=== PATIENT | female | born 1945 | race Caucasian/White ===

== ENCOUNTER → 2025-02-10 | Outpatient (CLI) | payer MEDICARE, SELFPAY ==
--- NOTE | 2025-02-10 12:56 | VDLE_ITS ---
Reason For Study Reason For Study: BLE Pain RIGHT LEFT CFV is compressible, spontaneous, phasic, competent CFV is compressible, spontaneous, phasic, competent, and demonstrates normal augmentation. and demonstrates normal augmentation. FV is compressible, spontaneous, phasic, competent FV is compressible, phasic, and INCOMPETENT for and demonstrates normal augmentation. greater than 1.0 second. POP V is compressible, spontaneous, phasic, competent POP V is compressible, spontaneous, phasic, competent and demonstrates normal augmentation. and demonstrates normal augmentation. T/P Trunk is compressible. T/P Trunk is compressible. PTV is compressible. PTV is compressible. RT PerV is compressible. LT PerV is compressible. SFJ is competent and measures 0.63 cm. SFJ is competent and measures 0.45 cm. Unable to Visualize Rt GSV prox thigh to mid calf. Pt GSV proximal thigh measures 0.32 x 0.34 cm. Reports HX of ablation. GSV at knee measures 0.29 x 0.33 cm. SSV mid calf is competent and measures 0.25 x 0.27 GSV is competent throughout. cm. SSV mid calf is competent and measures 0.34 x 0.35 Procedure cm. Exam performed in department. This is a venous duplex using B-mode, color flow and spectral Doppler. The exam was diagnostic. Patient was scanned in reverse Trendelenburg position during reflux assessment. VL/Venous Duplex US - Yin Extrem Interpretation Summary Deep veins of the lower extremities are bilaterally patent and compressible seg mentally. There is no evidence of deep vein thrombosis on either side. Valvular competence appears intact within the p roximal deep venous system on the right . On the left, the femoral vein is incompetent. Sapheno-femoral junctions are yin aterally competent . The right great saphenous vein appears to be absent from the proximal thigh to the mid-calf. Th e left great saphenous vein is patent and competent segmentally. Small saphenous veins are patent and competent bilateral ly. Ordering Physician: Tanvir Webster Referring Physician: Kyler Lynne Performed By: Porfirio Harris, RVT
--- NOTE | 2025-02-10 12:56 | ART_ITS ---
Reason For Study Reason For Study: PVD Procedure A bilateral lower extremity continuous wave Doppler with analog waveform analysis,segmental pressures,and ankle brachial indexes without exercise. Left Segmental Pressures Left brachial= 118mmHg. Left calf = 131mmHg. Left posterior tibial artery = 56mmHg. Left dorsalis pedis artery = 85mmHg. Left digit = 27 mmHg. The left posterior tibial artery waveforms are monophasic. The left dorsalis pedis waveforms are monophasic. Right Segmental Pressures Right brachial= 124mmHg. Right low thigh = 165mmHg. Right calf = 86mmHg. Right posterior tibial artery = 92mmHg. Right dorsalis pedis artery = 102mmHg. Right digit = 40 mmHg. The right posterior tibial artery waveforms are monophasic. The right dorsalis pedis waveforms are monophasic. Indices The right ankle brachial index by the posterior tibial artery is 0.74. The right ankle brachial index by the dorsalis pedis is 0.82. The right digital-brachial index is 0.32. The left ankle brachial index by the posterior tibial artery is 0.45. The left ankle brachial index by the dorsalis pedis is 0.69. The left digital-brachial index is 0.22. VL/Lower Ext Art Exam w/o Exercis Interpretation Summary Monophasic Doppler waveforms are noted at ankle level bilaterally. Pulse-volume recordings appear satisfactory bilaterally. Resting ankle-brachial indices are moderately diminished bilateral ly. Digital-brachial indices are severely diminished bilaterally. 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 There is evidence of severe arterial occlusive dsease at digital level bilaterally. Ordering Physician: Tanvir Webster Referring Physician: Kyler Lynne Performed By: Porfirio Harris RVT
--- OUTSIDE RECORDS SUMMARY | 2025-02-10 22:33 | XMS RPT_ITS | CCD ---
Author Organization [facility] ion Partnership [facility] Care Team Providers Care Chef Instructor Name Role Phone Tourlas, Andrew Unavailable Unavailable Unavailable Unavailable Stadnick, Aissatou S Unavailable Unavailable Stadnick, Aissatou S Unavailable Unavailable Stadnick, Aissatou S Unavailable Unavailable Stadnick, Aissatou S Unavailable Unavailable Tourlas, Andrew Primary Care Provider Oscar Pittsstantinos Primary Care Provider Tourlas, Andrew Unavailable Unavailabl e Tourlas, Andrew Unavailable Unavailabl e Emmanuel Ricketts Unavailable Unavailab le Tourlas, Andrew Unavailable Unavailabl e Mallapareddi, Emmanuel Nag S Unavailable Unavail able Tourlas, Andrew Unavailable Unavailabl e MallapaEmmanuel choi Primary Care Provider Emmanuel iRcketts S Unavailable Unavailable Unavailable Liliam SOSA, Emmanuel Primary Care Provider Tr Drummond MD Unavailable Unavailable Andrew Pitts MD Unavailable Unavail able Tourlas, Andrew Unavailable Unavailabl e Liliam SOSA, Emmanuel Primary Care Provider Liliam SOSA, Emmanuel Obrienhosh Primary Care Provider ALYSSA ARENAS Attending Unavailable ALYSSA ARENAS Referring Unavailable EMMANUEL RICKETTS Primary Care Unavailable Unavailable Unavailable Andrew Pitts MD Primary Care Provider Liliam SOSA, Emmanuel Primary Care Provider [phone] Nic Hernández MD Primary Care Provider [phone] Gisselle SOSA, Andrew Primary Care Provider Liliam SOSA MPH, Emmanuel Betancourt Primary Care Pro vider Liliam SOSA MPH, Emmanuel Betancourt Unavailable Mallankur, Dr. Emmanuel Iverson Referring Unavailable Mallapareddi, Dr. Emmanuel Iverson Attending Unavailable Mallapareddi, Dr. Emmanuel Iverson Primary Care Unavailable Mallapareddi, Dr. Emmanuel Iverson Referring Unavailable Mallapareddi, Dr. Emmanuel Iverson Attending Unavailable Mallapareddi, Dr. Emmanuel Iverson Primary Care Unavailable Mallapareddi, Dr. Emmanuel Iverson Referring Unavailable Mallapareddi, Dr. Emmanuel Iverson Attending Unavailable Mallapareddi, Dr. Emmanuel Iverson Primary Care Unavailable Mallapareddi, Dr. Emmanuel Iverson Referring Unavailable Mallapareddi, Dr. Emmanuel Iverson Attending Unavailable Mallapareddi, Dr. Emmanuel Iverson Primary Care Unavailable Mallapareddi, Emmanuel Iverson Primary Care Pro vider ROLANDO HANNA Attending Unavailable CONSULTANTS, [facility] Consulting Unavailable MALLAPAREDDI MALLAPAREDDI, A RUN EMMANUEL IVERSON~[id number] Primary Care Unavailable ROLANDO HANNA Admitting Unavailable ROLANDO HANNA Referring Unavailable MALLAPAREDDI MALLAPAREDDI, A RUN EMMANUEL IVERSON~[id number] Primary Care Unavailable Mallapareddi, Dr. Emmanuel Iverson Attending Unavailable Mallapareddi, Dr. Emmanuel Iverson Primary Care Unavailable Mallapareddi, Dr. Emmanuel Iverson Referring Unavailable Mallapareddi, Dr. Emmanuel Iverson Attending Unavailable Mallapareddi, Dr. Emmanuel Iverson Primary Care Unavailable Mallapareddi, Dr. Emmanuel Iverson Referring Unavailable Mallapareddi, Dr. [facility] Primary Care Unavailable JOAQUIN MENG Attending Unavailable MD RADHAMES MORRISON Referring Unavailable MD RADHAMES MORRISON Admitting Unavailable RADHAMES MORRISON Admitting Unavailable RADHAMES MORRISON Referring Unavailable MALLAPAREDDI, EMMANUEL [facility] Primary Care Unavail able JOAQUIN MENG Consulting Unavailable KATI MEZA Attending Unavailable STENTZ KYLER Referring Unavailable MALLAPAREDKARI, EMMANUEL [facility] Primary Care Unavail able Stentz MELC, Kyler Primary Care Provider AVERY DAS Admitting Unavailab AVERY Moser Attending Unavailab AVERY Moser Referring Unavailab le MALLAPAREDDI, EMMANUEL Primary Care Unavailable ROLANDO HANNA Attending Unavailable ROLANDO HANNA Referring Unavailable MALLAPAREDDI, [facility] Primary Care Unavailable ROLANDO HANNA Attending Unavailable ROLANDO HANNA Referring Unavailable MALLAPAREDDI, [facility] Primary Care Unavailable MALLAPAREDDI, [facility] Primary Care Unavailable EMERGENCY, TRIAGE PROTOCOL Admitting Unava ilable EMERGENCY, TRIAGE PROTOCOL Referring Unava ilable MALLAPAREDDI, [facility] Primary Care Unavailable ARLEY, MARI CORADO Consulting Unavailable NAYELY MAE Admitting NAYELY Richardson Attending Nic Simmons MD Unavailable Stentz MELC, Annona Primary Care Provider STENTZ, BOXBOROUGH Primary Care Unavailable MALLAPAREDKARI, [facility] Primary Care Unavail able oRlando Hanna DO Unavailable Unavailable Rolando Hanna DO Unavailable Unavailable AVERY DAS Referring Unavailab AVERY Moser Admitting Unavailab le MALLAPAREDDI, [facility] Primary Care Unavailable AVERY DAS Attending Unavailab le MALLAPAREDDI, [facility] Primary Care Unavailable MOJGAN LARSEN.KENNEDY Referring Unavailable MOJGAN JR., KENNEDY Admitting Unavailable MALLAPAREDDI, EMMANUEL Primary Care Unavailable MOJGAN LARSEN., KENNEDY Attending Unavailable MALLAPAREDDI, EMMANUEL Primary Care Unavailable MOJGAN JR., KENNEDY Attending Unavailable STENTZ, BOXBOROUGH Primary Care Unavailable MOJGAN JR., KENNEDY Attending Unavailable STENTZ, KYLER Primary Care Unavailable KENNEDY ULRICH JR. Attending Unavailable STENTZ, KYLER Primary Care Unavailable AVERY DAS Attending Unavailab le STENTZ, KYLER Primary Care Unavailable AVERY DAS Attending Unavailab le MALLAPAREDDI, EMMANUEL Primary Care Unavailable AVERY DAS Referring Unavailab le THIAGO, AVERY COSBY Admitting Unavailab le MALLAPAREDDI, EMMANUEL Primary Care Unavailable AVERY DAS Attending Unavailab le MALLAPAREDDI, EMMANUEL Primary Care Unavailable AVERY DAS Referring Unavailab le THIAGOAVERY BARON Admitting Unavailab le MALLAPAREDDI, EMMANUEL Primary Care Unavailable AVERY DAS Attending Unavailab le MALLAPAREDDI, EMMANUEL Primary Care Unavailable MALLAPAREDDI, EMMANUEL NAG S Attending Unavail able MALLAPAREDDI, EMMANUEL NAG S Primary Care Unavail able STENTZ, KYLER Attending Unavailable STENTZ, KYLER Primary Care Unavailable Tourlas, Pieter Primary Care Unavailable Tanvir Webster Referring Unavailable Tanvir Webster Attending Unavailable Allergies Allergy Classification Reported Allergen(s) Allergy Type Date of Onset Reaction(s) Facility nickel (2 sources) nickel Drug Allergy 3 Hives, Rash [facility] Opioid Agonists (15 sources) Codeine; Translations: [Codeine] Drug Allergy 6 Other (See Comments) [facility] (20 sources) codeine; Translations: [Codeine] Propensity to adverse reactions to drug 7 Abdominal pain, Other (See Comments), Abdominal Discomfort, Dyspepsia, Other [facility] Work Phone: (20 sources) nickel; Translations: [NICKEL] Drug Allergy 3 Skin Problems, Hives, Rash [facility] Medications Current Medications Medication Drug Class(es) Dates Sig (Normalized) Sig (Original) acetaminophen 500 mg / diphenhydrAMINE hydrochloride 25 mg oral tablet (20 sources) Histamine-1 Receptor Antagonist take 2 tablets by mouth once daily diphenhydrAMINE- acetaminophen (TYLENOL PM) 25-500 mg Tab Take 2 (two) tablets by mouth nightly . Active acetaminophen 325 mg / HYDROcodone bitartrate 5 mg oral tablet (20 sources) Opioid Agonist Start: 01-23-2024 End: 01-30-2024 take 1 tablet by mouth every eight hours as needed for pain HYDROcodone-acet aminophen (NORCO) 5-325 mg per tablet Indications: Humerus head fracture, left, with routine healing, subsequent encounter Take 1 (one) tablet by mouth every 8 (eight) hours as needed for pain . 21 tablet 01/23/2024 01/30/2024 Active Start: 11-29-2023 End: 05-03-2024 HYDROcodone-acetaminophen (N ORCO) 5-325 mg per tablet Indications: Humerus head fracture, left, with routine healing, subsequent encounter Take 1 (one) tablet by mouth every 6 (six) hours as needed for pain (Days supply per fill: 7) . 28 tablet 0 01/03/2024 01/10/2024 Active Start: 11-26-2023 End: 11-29-2023 take 1-2 tablets by mouth every four hours as needed 1-2 tablet, Oral, Every 4 hours PRN, moderate to severe pain, Starting on Fri11/26/23 at 1437, For patient reported pain 4/10 or less, give 1 tablet; 5 and above/10, give 2 tablets Start: 04-03-2023 End: 04-03-2023 HYDROcodone-acetaminophen (N ORCO) 5-325 mg per tablet 1 tablet Start: 09-06-2022 End: 09-09-2022 HYDROcodone-acetaminophen (N ORCO) 5-325 mg per tablet Indications: Acquired hammertoe of left foot Take 1 (one) tablet by mouth every 4 (four) hours as needed for pain (Days supply per fill: 3) . 18 tablet 0 09/06/2022 09/09/2022 Active Start: 05-05-2019 take 1 tablet by mike once daily as needed HYDROcodone-Acetaminophen 5-325 MG Oral Tablet Take 1 tablet as needed per day Quantity: 10 Refills: 0 Ordered: 18-Jun-2021 Liliam SOSA, MPH, Emmanuel Dobbins Start : 05-May-2019 Active Start: 03-21-2016 End: 09-06-2022 HYDROcodone-acetaminophen (N ORCO) 5-325 mg per tablet as needed for pain . 0 03/21/2016 03/05/2021 Discontinued (Discontinued by another clinician) End: 04-05-2023 take 1 tablet by mouth three times daily HYDROcodone-acetaminophen (Robbins) 5-325 mg per tablet Take 1 tablet by mouth 3 (three) times a day if needed (pain). 0 04/05/2023 Discontinued (Stop Taking at Discharge) take 1 tablet by mike th twice daily as needed for pain HYDROcodone-Acetaminophen 5-325 MG Oral Tablet TAKE 1 TABLET Twice daily PRN severe pain. Don't take with tramadol or lorazepam. Don't drink alcohol or drink while on med. Quantity: 10 Refills: 0 Ordered: 20-Feb-2021 Liliam SOSA, MPH, Emmanuel [facility] Active Duration: 30 days apixaban 5 mg oral tablet (11 sources) Factor Xa Inhibitor Start: 05-28-2023 End: 01-30-2024 take 1 tablet by mouth twice daily apixaban (Eliquis) 5 mg tablet Indications: Acute deep vein thrombosis (DVT) of popliteal vein of right lower extremity (Multi) Take 1 tablet (5 mg) by mouth 2 times a day. 60 tablet 2 07/25/2023 01/30/2024 Discontinued (Therapy completed) Start: 04-23-2023 End: 04-21-2023 take 1 tablet by mouth every twelve hours apixaban (Eliquis) tablet 5 mg Start: 04-23-2023 End: 04-21-2023 take 1 tablet by mouth every twelve hours apixaban (Eliquis) tablet 5 mg Start: 04-19-2023 End: 04-21-2023 take 1 tablet by mouth every twelve hours apixaban (Eliquis) tablet 10 mg Start: 04-18-2023 End: 04-23-2023 take 10 mg by mouth every twelve hours Eliquis DVT-PE Treat 30D Start 5 mg (74 tabs) tablets,dose pack Take 10 mg by mouth every 12 hours. 0 04/18/2023 04/23/2023 Start: 04-18-2023 End: 04-23-2023 take 10 mg by mouth every twelve hours Eliquis DVT-PE Treat 30D Start 5 mg (74 tabs) tablets,dose pack Take 10 mg by mouth every 12 hours. 0 04/18/2023 04/23/2023 Active atenolol 25 mg oral tablet (20 sources) beta-Adrenergic Hosea Start: 03-07-2021 End: 08-09-2024 take 1 tablet by mouth once daily atenolol 25 mg tablet TAKE 1 TABLET BY MOUTH ONCE DAILY - Active Start: 11-15-2016 End: 03-05-2021 take 1 tablet by mouth once daily atenolol (TENORMIN) 25 MG tablet Take 1 (one) tablet (25 mg total) by mouth daily. 90 tablet 3 11/25/2017 03/05/2021 Discontinued (Discontinued by another clinician) azithromycin 250 mg oral tablet (2 sources) Macrolide Antimicrobial Start: 04-20-2022 azithromycin 250 mg tablet TAKE DIRECTED ON PACKAGE - Active betamethasone 0.5 mg/ml / clotrimazole 10 mg/ml topical cream (2 sources) Azole Antifungal, Corticosteroid Start: 09-15-2024 End: 09-29-2024 clotrimazole-beta methasone (LOTRISONE) cream Apply topically 2 (two) times a day Apply to bottom or left foot for 14 days . 30 g 01 09/15/2024 09/29/2024 Active celecoxib 200 mg oral capsule (3 sources) Nonsteroidal Anti-inflammatory Drug Start: 05-04-2024 End: 10-31-2024 take 1 capsule by mouth twice daily celecoxib (CELEBREX) 200 MG capsule Take 1 (one) capsule (200 mg total) by mouth 2 (two) times a day . 05/04/2024 10/31/2024 Active cephalexin 500 mg oral capsule (1 source) Cephalosporin Antibacterial Start: 09-06-2022 End: 09-09-2022 take 1 capsule by mouth four times daily cephALEXin (KEFLEX) 500 MG capsule Take 1 (one) capsule (500 mg total) by mouth 4 (four) times a day for 3 days . 12 capsule 0 09/06/2022 09/09/2022 Active docusate sodium 50 mg / sennosides, nursing home 8.6 mg oral tablet (10 sources) Start: 01-05-2024 End: 04-04-2024 take 1 tablet by mouth twice daily sennosides-docusa te sodium (Tess-Colace) 8.6-50 mg tablet Indications: Opioid use Take 1 tablet by mouth 2 times a day. 180 tablet 01/05/2024 04/04/2024 Active Start: 11-29-2023 End: 12-29-2023 take 1 tablet by mouth twice daily senna-docusate (SENNA-S) 8.6-50 mg Take 1 (one) tablet by mouth 2 (two) times a day . 60 tablet 0 11/29/2023 12/29/2023 Active Start: 11-25-2023 End: 11-29-2023 senna-docusate (SENNA-S) 8.6 -50 mg per tablet 1 tablet fluorouracil 50 mg/ml topical cream (2 sources) Nucleoside Metabolic Inhibitor Start: 03-01-2022 fluorouracil 5 % topical cream - Active gabapentin 300 mg oral capsule (20 sources) Anti-epileptic Agent Start: 04-15-2024 take 1 capsule by mouth every twelve hours gabapentin (Neurontin) 300 mg capsule Indications: Insomnia, unspecified type Take 1 capsule (300 mg) by mouth every 12 hours. 60 capsule 1 04/15/2024 Active Start: 01-02-2024 take 1 capsule by mo uth every twelve hours gabapentin (Neurontin) 300 mg capsule Indications: Insomnia, unspecified type Take 1 capsule (300 mg) by mouth every 12 hours. 60 capsule 01/02/2024 Active Start: 11-25-2023 End: 11-29-2023 take 1 capsule by mouth every twelve hours 300 mg, Oral, Every 12 hours, First dose on Fri11/25/23 at 1800, Capsule may be opened and contents placed down tube, flush tube with 10ml saline Start: 09-23-2023 take 1 capsule by mo uth every twelve hours gabapentin (NEURONTIN) 300 MG capsule Take 1 (one) capsule (300 mg total) by mouth every 12 (twelve) hours . 09/23/2023 Active Start: 06-17-2023 take 1 capsule by mo uth every twelve hours gabapentin (Neurontin) 300 mg capsule Indications: Insomnia, unspecified type Take 1 capsule (300 mg) by mouth every 12 hours. 60 capsule 0 06/17/2023 Active Start: 04-29-2023 take 1 capsule by mo uth three times daily Neurontin 100 mg capsule take 1 capsule by oral route 3 times every day 100 MG - Active M54.12/M54.16 Start: 04-16-2023 End: 06-19-2023 take 1 capsule by mouth once daily gabapentin (Neurontin) 100 mg capsule Indications: Insomnia, unspecified type Take 1 capsule (100 mg) by mouth once daily. 30 capsule 0 04/29/2023 06/19/2023 Discontinued (Med List Cleanup) Start: 04-07-2023 End: 04-29-2023 gabapentin (Neurontin) capsu le 300 mg Comment on above: M54.12/M54.16 hydroCHLOROthiazide 50 mg / triamterene 75 mg oral tablet (20 sources) Potassium-sparing Diuretic, Thiazide Diuretic Start: 12-07-2023 triamterene-hydro chlorothiazide (MAXZIDE) 75-50 mg per tablet 12/07/2023 Active Start: 04-05-2023 End: 04-05-2023 take 1 capsule by mouth once daily 1 capsule, oral, Daily, First dose on 04/05/23 at 0900 Stop day 2. Hold for systolic blood pressure less than 110 Start: 10-05-2015 End: 05-03-2025 take 1 tablet by mouth once daily triamterene 75 mg-hydrochlorothiazide 50 mg tablet TAKE 1 TABLET BY MOUTH ONCE DAILY - Active triamterene-hydr ochlorothiazide 75-50 MG tablet Take by mouth At bedtime. 0 Active hydrocortisone 25 mg/ml topical cream (5 sources) Corticosteroid Start: 04-29-2022 hydrocortisone 2.5 % topical cream - Active Start: 04-29-2022 End: 04-21-2023 hydrocortisone 2.5 % cream A PPLY MIXED 50/50 WITH VASELINE TO LIPS TWICE DAILY FOR UP TO 2 WEEKS. THEN DISCONTINUE FOR ONE WEEK BEFORE RESUMING NEEDED 0 04/29/2022 04/21/2023 Discontinued (Stop Taking at Discharge) losartan potassium 50 mg oral tablet (20 sources) Angiotensin 2 Receptor Hosea Start: 05-03-2024 End: 05-03-2025 take 1 tablet by mouth once daily at bedtime losartan (Cozaar) 50 mg tablet Indications: Benign essential HTN Take 1 tablet (50 mg) by mouth once daily at bedtime. 90 tablet 3 05/03/2024 05/03/2025 Active Start: 11-28-2023 End: 05-03-2024 take 1 tablet by mouth once daily losartan (COZAAR) 25 MG tablet Take 1 (one) tablet (25 mg total) by mouth nightly . 30 tablet 11/29/2023 Active meloxicam 7.5 mg oral tablet (20 sources) Nonsteroidal Anti-inflammatory Drug Start: 02-08-2022 End: 05-03-2025 meloxicam (MOBIC) 7.5 MG tablet Take 1 (one) tablet to 2 (two) tablets (7.5-15 mg total) by mouth daily . 09/21/2022 Active Start: 12-12-2020 End: 07-30-2022 take 1 tablet by mouth once daily meloxicam 15 mg tablet TAKE 1 (ONE) TABLET (15 MG TOTAL) BY MOUTH DAILY . - Active Start: 12-12-2020 Meloxicam 15 M G Oral Tablet Quantity: 30 Refills: 0 Ordered: 12-Dec-2020 DO Start : 12-Dec-2020 Active methylPREDNISolone (6 sources) Corticosteroid Start: 10-29-2023 End: 11-04-2023 methylPREDNISolone (MEDROL DOSEPACK) 4 mg tablet Follow package directions . 21 tablet 0 10/29/2023 11/04/2023 Active Start: 04-09-2023 Medrol (Tono) 4 mg tablets in a dose pack take by oral route as directed per package instructions 0.00 - Active Start: 03-05-2021 End: 03-12-2021 methylPREDNISolone (MEDROL D OSEPACK) 4 mg tablet follow package directions . 21 tablet 0 03/05/2021 03/12/2021 Active naloxone hydrochloride 40 mg/ml nasal spray (20 sources) Opioid Antagonist Start: 11-29-2023 naloxone (NA RCAN) 4 mg/actuation [place] Administer 1 spray into one nostril for known or suspected opioid overdose. If patient worsens or does not respond, may repeat in 2-3 minutes. . 2 each 0 11/29/2023 Active Start: 04-03-2023 End: 04-05-2023 naloxone (NARCAN) injection 0.4 mg Start: 10-23-2022 End: 10-23-2023 naloxone (Narcan) 4 mg/0.1 m L nasal spray Indications: Other chronic pain Administer 1 spray (4 mg) into affected nostril(s) if needed for opioid reversal. May repeat every 2-3 minutes if needed, alternating nostrils, until medical assistance becomes available. 2 each 0 10/23/2022 10/23/2023 Active Start: 03-01-2020 Narcan 4 MG/0. 1ML Nasal Liquid 1 spray in 1 nostril as needed for opioid overdose symptoms. May repeat dose in 2-3 min, alternate nostril Quantity: 1 Refills: 0 Ordered: 20-Feb-2021 Liliam SOSA, MPH, Emmanuel Dobbins Start : 01-Mar-2020 Active naloxone (NARCAN) 4 mg/actuation [place] (12 sources) Start: 11-29-2023 naloxone (NARCAN) 4 mg/actuation [place] Administer 1 spray into one nostril for known or suspected opioid overdose. If patient worsens or does not respond, may repeat in 2-3 minutes. . 2 each 11/29/2023 Active pantoprazole 20 mg delayed release oral tablet (20 sources) Proton Pump Inhibitor Start: 11-26-2023 End: 05-01-2024 take 1 tablet by mouth once daily pantoprazole (PROTONIX) 20 MG tablet Take 1 (one) tablet (20 mg total) by mouth daily Start: 11/30/23. 30 tablet 11/30/2023 Active prednisoLONE acetate 10 mg/ml ophthalmic suspension (2 sources) Corticosteroid Start: 02-04-2022 take 1 drop(s) into the eye(s) in the morning prednisolone acetate 1 % eye drops,suspension INSTILL 1 DROP INTO EACH EYE IN THE MORNING DIRECTED - Active propylene glycol 6 mg/ml ophthalmic solution (1 source) Propylene Glycol 0.6 % Solution Three times a day. 0 Active levothyroxine sodium 0.112 mg oral tablet (20 sources) l-Thyroxine Start: 04-04-2023 End: 04-05-2023 100 mcg, oral, Every morning before breakfast, First dose on Fri04/04/23 at 0700 ORAL ROUTE: take on an empty stomach and separate from other medications. ENTERAL TUBE ROUTE: If newly initiated enteral nutrition duration is over 5 days, hold enteral nutrition 1 hour before and after drug administration, per ASPEN guidelines. Start: 06-27-2022 levothyroxine 100 mcg tablet - Active Start: 12-04-2021 End: 04-21-2023 take 1 tablet by mouth once daily levothyroxine 100 MCG tablet Take 100 mcg by mouth daily. 0 12/04/2021 Active Start: 12-05-2020 Levothyroxine Sodium 112 MCG Oral Tablet Quantity: 90 Refills: 0 Ordered: 05-Dec-2020 DO Start : 05-Dec-2020 Active Start: 10-05-2015 End: 11-29-2023 take 1 tablet by mouth once daily levothyroxine (SYNTHROID, LEVOTHROID) 112 MCG tablet Take 1 (one) tablet (112 mcg total) by mouth once daily . 10/05/2015 Active tiZANidine 2 mg oral capsule (20 sources) Central alpha-2 Adrenergic Agonist Start: 05-14-2023 take 1 capsule by mouth every eight hours as needed Zanaflex 2 mg capsule take 1 capsule by oral route every 8 hours as needed - Active Start: 06-26-2016 End: 01-30-2024 tizanidine 2 mg tablet - Active traMADol hydrochloride 50 mg oral tablet (20 sources) Opioid Agonist Start: 07-26-2022 End: 04-02-2024 traMADol (ULTRAM) 50 mg tablet Indications: S/P hardware removal , Humerus head fracture, left, with routine healing, subsequent encounter Take 1 (one) tablet (50 mg total) by mouth every 8 (eight) hours as needed for pain (Days supply per fill: 7) . 21 tablet 03/26/2024 04/02/2024 Active Start: 07-26-2022 End: 02-09-2024 take 1 tablet by mouth every six hours as needed for pain traMADol (ULTRAM) 50 mg tablet Indications: Humerus head fracture, left, with routine healing, subsequent encounter Take 1 (one) tablet (50 mg total) by mouth every 6 (six) hours as needed for pain . 28 tablet 02/02/2024 02/09/2024 Active Start: 06-26-2016 End: 11-29-2023 traMADol (ULTRAM) 50 mg tabl et Take 1 (one) tablet (50 mg total) by mouth as needed for pain . 0 06/26/2016 11/29/2023 Discontinued (Stop Taking at Discharge) Start: 06-26-2016 take 1 tablet by mike th once daily in the morning traMADol HCl - 50 MG Oral Tablet Take 1 tablet in the morning and night; 2 tablets afternoon per day as needed. Quantity: 120 Refills: 0 Ordered: 23-Jan-2022 Liliam SOSA, MPH, Emmanuel Dobbins Start : 13-Nov-2020 Active traZODone hydrochloride 50 mg oral tablet (20 sources) Serotonin Reuptake Inhibitor Start: 02-19-2016 End: 10-12-2024 take 1 tablet by mouth once daily traZODone (DESYREL) 50 MG tablet Take 1 (one) tablet (50 mg total) by mouth nightly . 02/19/2016 Active urea 400 mg/ml topical lotion (2 sources) Start: 04-02-2024 End: 07-01-2024 urea 40 % Lotn Apply 1 Application topically 2 (two) times a day . 226.8 g 04/02/2024 07/01/2024 Active Completed/Discontinued Medications Medication Drug Class(es) Dates Sig (Normalized) Sig (Original) acetaminophen 325 mg oral tablet (20 sources) Start: 11-25-2023 End: 11-29-2023 take 1 tablet by mouth every four hours as needed for pain and headache acetaminophen (TYLENOL) tablet 650 mg Start: 04-19-2023 End: 04-21-2023 take 1 tablet by mouth every four hours as needed acetaminophen (Tylenol) tablet 650 mg Start: 04-03-2023 End: 04-05-2023 acetaminophen (TYLENOL) tabl et 1,000 mg Start: 04-03-2023 End: 04-05-2023 take 1 tablet by mouth every six hours as needed acetaminophen (TYLENOL) tablet 325 mg acetaminophen (T YLENOL ER) 650 MG CR tablet Take 2 (two) tablets (1,300 mg total) by mouth At NOON . Active take 1 tablet by mike th every six hours as needed acetaminophen (Tylenol) 500 mg tablet Take 1 tablet (500 mg) by mouth every 6 hours if needed. Active End: 04-05-2023 take 1 tablet by mouth every eight hours acetaminophen (Tylenol Arthritis Pain) 650 mg 8 hr tablet Take 1 tablet (650 mg total) by mouth every 8 (eight) hours if needed (pain). Do not crush, chew, or split. 0 04/05/2023 Discontinued (Stop Taking at Discharge) acetaminophen 325 mg / oxyCODONE hydrochloride 5 mg oral tablet (4 sources) Opioid Agonist Start: 11-27-2023 End: 11-27-2023 oxyCODONE-acetaminophen (PERCOCET) 5-325 mg per tablet Indications: Closed nondisplaced fracture of surgical neck of left humerus, unspecified fracture morphology, initial encounter Take 1 (one) tablet by mouth every 6 (six) hours as needed for pain (Days supply per fill: 3) . 12 tablet 0 11/27/2023 11/27/2023 Discontinued Start: 04-02-2023 take 1-2 tablets by mouth every four to six hours as needed for pain Percocet 5 mg-325 mg tablet take 1-2 tablet by oral route every 4-6 hours as needed for pain. Limit 6qd - Active M54.5, M54.2 Comment on above: M54.5, M54.2 alendronic acid 35 mg oral tablet (2 sources) Bisphosphonate Start: Alendronate Sodium 35 MG Oral Tablet TAKE 1 TABLET WEEKLY ON AN EMPTY STOMACH 30-60 MINUTES BEFORE BREAKFAST WITH 8-12 OUNCES OF WATER. DO NOT LIE DOWN AFTER TAKING PILL. Quantity: 12 Refills: 0 Ordered: 10-Jan-2021 Liliam SOSA, MPH, Emmanuel Dobbins Start : 10-Jan-2021 Active aluminum hydroxide 40 mg/ml / magnesium hydroxide 40 mg/ml / simethicone 4 mg/ml oral suspension (1 source) Start: 023 End: 023 aluminum-magnesium hydroxide-simethico ne (MAALOX) 200-200-20 mg/5 mL suspension 30 mL aspirin 325 mg delayed release oral tablet (1 source) Platelet Aggregation Inhibitor, Nonsteroidal Anti-inflammatory Drug Start: End: take 325 mg by mouth twice daily 325 mg, Oral, 2 times daily, First dose on Fri11/26/23 at 1700, DO NOT CRUSH OR CHEW. bethanechol chloride 25 mg oral tablet (1 source) Cholinergic Muscarinic Agonist Start: 023 End: 09-16-2 023 bethanechol (URECHOLINE) tablet 25 mg bisacodyl 10 mg rectal suppository (1 source) Stimulant Laxative Start: End: bisacodyL (DULCOLAX) suppository 10 mg calcium chloride 0.0014 meq/ml / potassium chloride 0.004 meq/ml / sodium chloride 0.103 meq/ml / sodium lactate 0.028 meq/ml injectable solution (3 sources) Start: End: take 100 mL intravenously every hour 100 mL/hr, Intravenous, Continuous, Starting on Fri11/26/23 at 1415, PACU (only) Start: 04-03-2023 End: 04-03-2023 take 100 mL intravenously every hour 100 mL/hr, intravenous, Continuous, Starting on Kaley 04/03/23 at 1545 Start: 04-03-2023 End: 04-03-2023 lactated Ringer's infusion ceFAZolin 2000 mg injection (2 sources) Cephalosporin Antibacterial Start: 11-26-2023 End: 11-27-2023 take 2000 mg intravenously every eight hours 2,000 mg, Intravenous, at 100 mL/hr, Every 8 hours, First dose on Fri11/26/23 at 1400, For 3 doses, Starting in pacu, Indication (POST PROCEDURE): Ortho Start: 11-26-2023 End: 11-26-2023 ceFAZolin (ANCEF) IVPB 2 g ( premix) ceFAZolin (ANCEF) 2 gram/20 mL IV syringe 2 g (1 source) Start: 04-03-2023 End: 04-05-2023 2 g, intravenous, Administer over 3 Minutes, Every 8 hours, First dose on Kaley 04/03/23 at 1700, For 6 doses, Recovery & On Unit Indication: Prophylaxis-Surgical cholecalciferol 0.01 mg oral tablet (1 source) Vitamin D Start: 11-27-2023 End: 11-29-2023 cholecalciferol (vitamin D3) tablet 800 Units cloNIDine hydrochloride 0.1 mg oral tablet (1 source) Central alpha-2 Adrenergic Agonist Start: 04-03-2023 End: 04-05-2023 cloNIDine (CATAPRES) tablet 0.1 mg cyclobenzaprine hydrochloride 10 mg oral tablet (5 sources) Muscle Relaxant Start: 11-26-2023 End: 11-29-2023 take 10 mg by mouth three times daily as needed for muscle spasms 10 mg, Oral, 3 times daily PRN, muscle spasms, Starting on Fri11/26/23 at 1437 Start: 04-08-2023 End: 06-19-2023 take 1 tablet by mouth every two hours for muscle spasms cyclobenzaprine (Flexeril) 5 mg tablet Take 1 tablet (5 mg) by mouth every 2 hours if needed for muscle spasms. 0 04/08/2023 06/19/2023 Discontinued (Med List Cleanup) Start: 04-03-2023 End: 04-05-2023 cyclobenzaprine (FLEXERIL) t ablet 5 mg docusate sodium 100 mg oral capsule (4 sources) Start: 04-15-2023 End: 06-19-2023 take 2 capsules by mouth twice daily docusate sodium (Colace) 100 mg capsule Take 2 capsules (200 mg) by mouth 2 times a day. 0 04/15/2023 06/19/2023 Discontinued (Med List Cleanup) Start: 04-03-2023 End: 04-05-2023 docusate sodium (COLACE) cap jose d 100 mg DULoxetine 20 mg delayed release oral capsule (5 sources) Serotonin and Norepinephrine Reuptake Inhibitor Start: 10-23-2022 End: 10-23-2023 take 1 capsule by mouth once daily DULoxetine (Cymbalta) [address] capsule Indications: Other chronic pain Take 1 capsule (20 mg) by mouth once daily. Do not crush or chew. 30 capsule 10/23/2022 06/19/2023 Discontinued (Side effects) EPINEPHrine 0.01 mg/ml / lidocaine hydrochloride 20 mg/ml injectable solution (2 sources) Antiarrhythmic, alpha-Adrenergic Agonist, beta-Adrenergic Agonist, Catecholamine, Amide Local Anesthetic Start: 09-06-2022 End: 09-06-2022 lidocaine-EPINEPH rine (XYLOCAINE W/EPI) 2 %-1:100,000 injection 1 mL Start: 09-06-2022 End: 09-06-2022 lidocaine-EPINEPHrine (XYLOC JONATHAN W/EPI) 2 %-1:100,000 injection 1 mL famotidine 20 mg oral tablet (3 sources) Histamine-2 Receptor Antagonist Start: 04-16-2023 End: 06-19-2023 take 1 tablet by mouth every twenty-four hours famotidine (Pepcid) 20 mg tablet Take 1 tablet (20 mg) by mouth once every 24 hours. 0 04/16/2023 06/19/2023 Discontinued (Med List Cleanup) 1 ml fentaNYL 0.05 mg/ml injection (1 source) Opioid Agonist Start: 04-03-2023 End: 04-03-2023 fentaNYL (SUBLIMAZE) injection 50 mcg fentaNYL (SUBLIMAZE) inj syringe 25 mcg (1 source) Start: 11-26-2023 End: 11-26-2023 25 mcg, Intravenous, Every 5 min PRN, Pain, Starting on Fri11/26/23 at 1325, For 4 doses, PACU (only), [] Do not give more than 100 mcg while in PACU. 0.5 ml HYDROmorphone hydrochloride 1 mg/ml prefilled syringe (6 sources) Opioid Agonist Start: 11-26-2023 End: 11-26-2023 0.25 mg, Intravenous, Every 5 min PRN, Pain, Starting on Fri11/26/23 at 1325, For 6 doses, PACU (only), Give if fentanyl not effective or not ordered. Do not give more than 1.5 mg total. Start: 11-25-2023 End: 11-25-2023 HYDROmorphone (PF) (DILAUDID ) injection Start: 04-03-2023 End: 04-05-2023 HYDROmorphone (DILAUDID) inj ection 0.5 mg Start: 04-03-2023 End: 04-03-2023 HYDROmorphone (DILAUDID) 0.5 mg/0.5 mL injection - ADS Override Pull ibuprofen 200 mg oral tablet (12 sources) Nonsteroidal Anti-inflammatory Drug End: 03-05-2021 take 2 tablets by mouth once daily ibuprofen (ADVIL,MOTRIN) 200 MG tablet Take 400 mg by mouth daily. 0 03/05/2021 Discontinued (Discontinued by another clinician) 1 ml ketorolac tromethamine 15 mg/ml injection (1 source) Nonsteroidal Anti-inflammatory Drug, Cyclooxygenase Inhibitor Start: 11-26-2023 End: 11-28-2023 take 15 mg intravenously every six hours as needed for pain 15 mg, Intravenous, Every 6 hours PRN, mild pain, Starting on Fri11/26/23 at 1437, For 48 hours lidocaine 0.04 mg/mg medicated patch (3 sources) Antiarrhythmic, Amide Local Anesthetic Start: 11-25-2023 End: 11-26-2023 lidocaine patch 1 patch Start: 09-06-2022 End: 09-06-2022 lidocaine 20 mg/mL (2 %) inj ection 3 mL LORazepam 0.5 mg oral tablet (20 sources) Benzodiazepine Start: 12-06-2015 End: 11-29-2023 LORazepam (ATIVAN) 0.5 MG tablet Take 1 (one) tablet (0.5 mg total) by mouth as needed . 0 12/06/2015 11/29/2023 Discontinued (Stop Taking at Discharge) End: 06-19-2023 take 1 tablet by mouth every eight hours as needed LORazepam (Ativan) 0.5 mg tablet Take 1 tablet (0.5 mg) by mouth every 8 hours if needed for anxiety. 0 06/19/2023 Discontinued (Med List Cleanup) magnesium chloride 0.40396 meq/ml / potassium chloride 0.24235 meq/ml / sodium acetate 0.027 meq/ml / sodium chloride 0.0899 meq/ml / sodium gluconate 5.02 mg/ml injectable solution (2 sources) Start: 11-27-2023 End: 11-28-2023 electrolyte-A (PLASMALYTE-A) solution 500 mL magnesium hydroxide 240 mg/m l oral suspension (6 sources) Start: 04-19-2023 End: 04-21-2023 magnesium hydroxide (Milk of Magnesia) 2,400 mg/10 mL suspension 10 mL Start: 04-05-2023 End: 06-19-2023 take 30 mL by mouth every twenty-four hours as needed magnesium hydroxide (Milk Of Magnesia Concentrated) 2,400 mg/10 mL suspension suspension Take 30 mL by mouth once daily as needed for constipation. 0 04/05/2023 06/19/2023 Discontinued (Therapy completed) Start: 04-03-2023 End: 04-05-2023 magnesium hydroxide (MILK OF MAGNESIA) 400 mg/5 mL suspension 30 mL magnesium oxide 400 mg oral tablet (2 sources) Start: 04-19-2023 End: 04-21-2023 magnesium oxide (Mag-Ox) tablet 400 mg methylPREDNISolone 4 MG Oral Tablet Therapy Pack (2 sources) Start: 03-05-2021 methylPREDNISo lone 4 MG Oral Tablet Therapy Pack Quantity: 21 Refills: 0 Ordered: 05-Mar-2021 DO Start : 05-Mar-2021 Active 5 ml midazolam 1 mg/ml injection (1 source) Benzodiazepine Start: 04-03-2023 End: 04-03-2023 midazolam (VERSED) injection 1 mg Start: 04-03-2023 End: 04-03-2023 midazolam (VERSED) injection 1 mg 1 ml morphine sulfate 2 mg/ml prefilled syringe (4 sources) Opioid Agonist Start: 04-19-2023 End: 04-19-2023 morphine 2 mg/mL injection - Omnicell Override Pull Start: 04-19-2023 End: 04-21-2023 take 2 mg intravenously every four hours as needed morphine injection 2 mg mupirocin 0.02 mg/mg topical ointment (1 source) RNA Synthetase Inhibitor Antibacterial Start: 04-03-2023 End: 04-03-2023 mupirocin (BACTROBAN) 2 % ointment 1 ml nalbuphine hydrochloride 10 mg/ml injection (1 source) Opioid Agonist/Antagonist Start: 04-03-2023 End: 04-05-2023 nalbuphine (NUBAIN) 10 mg/mL injection 2.5 mg naloxone (NARCAN) injection 0.1 mg (1 source) Start: 11-25-2023 End: 11-29-2023 naloxone (NARCAN) injection 0.1 mg naproxen sodium 220 mg oral tablet (12 sources) Nonsteroidal Anti-inflammatory Drug End: 03-05-2021 take 2 tablets by mouth once daily naproxen sodium (ALEVE) 220 MG tablet Take 440 mg by mouth daily. 0 03/05/2021 Discontinued (Discontinued by another clinician) 2 ml ondansetron 2 mg/ml injection (5 sources) Serotonin-3 Receptor Antagonist Start: 11-26-2023 End: 11-26-2023 take 4 mg intravenously every twenty-four hours as needed for nausea and vomiting 4 mg, Intravenous, Once as needed, nausea, vomiting, Starting on Fri11/26/23 at 1325, For 1 dose, PACU (only), Administer first as needed for nausea/vomiting, or as directed by anesthesia Start: 11-25-2023 End: 11-25-2023 ondansetron (ZOFRAN) 4 mg/2 mL injection - ADS Override Pull Start: 04-19-2023 End: 04-21-2023 take 4 mg intravenously every four hours as needed ondansetron (Zofran) injection 4 mg Start: 04-03-2023 End: 04-05-2023 take 4 mg intravenously every six hours as needed ondansetron (PF) (ZOFRAN) injection 4 mg ondansetron (ZOFRAN-ODT) disintegrating tablet 4 mg (1 source) Start: 11-25-2023 End: 11-29-2023 take 1 tablet by mouth every six hours as needed for nausea and vomiting ondansetron (ZOFRAN-ODT) disintegrating tablet 4 mg oxyCODONE hydrochloride 5 mg oral tablet (6 sources) Opioid Agonist Start: 11-25-2023 End: 11-26-2023 take 1 tablet by mouth every six hours as needed oxyCODONE (ROXICODONE) immediate release tablet 5 mg Start: 11-25-2023 End: 11-25-2023 take 1 tablet by mouth every six hours as needed oxyCODONE (ROXICODONE) immediate release tablet 2.5 mg Start: 04-10-2023 End: 06-19-2023 take 1 tablet by mouth every four hours as needed oxyCODONE (Oxaydo) 5 mg immediate release tablet Take 1 tablet (5 mg) by mouth every 4 hours if needed (pain). 0 04/10/2023 06/19/2023 Discontinued (Therapy completed) Start: 04-04-2023 End: 04-05-2023 oxyCODONE (ROXICODONE) immed iate release tablet 5 mg oxygen (O2) therapy (2 sources) Start: 04-19-2023 End: 04-21-2023 oxygen (O2) therapy Oxygen Therapy, Adult (2 sources) Start: 04-03-2023 End: 04-05-2023 Oxygen Therapy, Adult perflutren lipid microspheres (DEFINITY) 0.143 mg/mL solution 0-10 mL of mixture (1 source) Start: 11-28-2023 End: 11-29-2023 perflutren lipid microspheres (DEFINITY) 0.143 mg/mL solution 0-10 mL of mixture polyethylene glycol 3350 [id number] mg powder for oral solution (1 source) Osmotic Laxative Start: 04-03-2023 End: 04-05-2023 polyethylene glycol (MIRALAX) packet 17 g promethazine hydrochloride 12.5 mg rectal suppository (2 sources) Phenothiazine Start: 04-03-2023 End: 04-05-2023 take 12.5 mg rectal route every six hours as needed promethazine (PHENERGAN) suppository 12.5 mg Start: 04-03-2023 End: 04-05-2023 take 1 tablet by mouth every six hours as needed promethazine (PHENERGAN) tablet 12.5 mg rivaroxaban 10 mg oral tablet (1 source) Factor Xa Inhibitor Start: 10-22-2017 End: 11-25-2017 XARELTO 10 mg tablet sennosides, nursing home 8.6 mg oral tablet (1 source) Start: 04-03-2023 End: 04-05-2023 senna (SENOKOT) tablet 17.2 mg 1000 ml sodium chloride 9 mg/ml injection (2 sources) Start: 11-26-2023 End: 11-26-2023 sodium chloride 0.9% (NS) bolus 500 mL Start: 04-03-2023 End: 04-05-2023 sodium chloride 0.9 % infusi on 1 ml triamcinolone acetonide 40 mg/ml injection (3 sources) Corticosteroid Start: 10-19-2021 End: 10-19-2021 triamcinolone acetonide (KENALOG-40) injection 40 mg Start: 07-16-2021 End: 07-16-2021 triamcinolone acetonide (KEI ALOG) injection 10 mg Start: 03-04-2017 End: 03-04-2017 triamcinolone acetonide (KEI ALOG-40) injection 40 mg 40 mg, Intra-articular, Starting 03/04/17 at 1531 Given 03/04/2017 15:31 EDT 40 mg Problems Active Problems Problem Classification Problem Date Documented Date Episodic/Chronic Acquired foot deformities (11 sources) Acquired hammer toe of left foot; Translations: [Other hammer toe(s) (acquired), left foot] Onset: 06-09-2024 Chronic Anxiety disorders (20 sources) Anxiety; Translations: [Anxiety state, unspecified] Onset: 09-02-2022 09-02-2022 Chronic Deficiency and other anemia (1 source) Iron deficiency anemia; Translations: [Iron deficiency anemia, unspecified] 07-04-2023 Episodic Deficiency and other anemia (2 sources) Anemia, unspecified; Translations: [Anemia, unspecified] Onset: 06-29-2024 Episodic Essential hypertension (20 sources) Hypertensive disorder; Translations: [Benign essential hypertension] Onset: 07-23-2016 07-23-2016 Chronic Genitourinary symptoms and ill-defined conditions (20 sources) H/O: kidney disease; Translations: [H/O: hematuria] Episodic Mycoses (6 sources) Onychomycosis; Translations: [Tinea unguium] Onset: 09-15-2024 Episodic Osteoarthritis (20 sources) Osteoarthritis of wrist; Translations: [Localized osteoarthrosis] Onset: 12-26-2015 12-26-2015 Chronic Osteoarthritis (2 sources) Osteoarthritis of joint of left wrist; Translations: [Primary osteoarthritis of left wrist] Onset: 12-26-2015 12-26-2015 Osteoporosis (4 sources) Primary osteoporosis; Translations: [Senile osteoporosis] Onset: 12-06-2022 Chronic Other acquired deformities (4 sources) Scoliosis of lumbar spine; Translations: [Other forms of scoliosis, lumbar region] Onset: 04-03-2023 Chronic Other acquired deformities (20 sources) Other forms of scoliosis, lumbar region; Translations: [Other forms of scoliosis, lumbar region] Onset: 07-29-2022 07-29-2022 Chronic Other acquired deformities (4 sources) Scoliosis, unspecified Chronic Other acquired deformities (15 sources) Spondylolisthesis, lumbar region; Translations: [Spondylolisthesis, lumbar region] Onset: 03-07-2021 Episodic Other aftercare (20 sources) Prescribed medication regimen behavior finding; Translations: [Long-term (current) use of other medications] Episodic Other aftercare (20 sources) H/O: high risk medication; Translations: [Long-term (current) use of other medications] Episodic Other bone disease and musculoskeletal deformities (20 sources) Osteopenia; Translations: [Disorder of bone and cartilage, unspecified] Onset: 09-02-2022 09-02-2022 Episodic Other circulatory disease (1 source) Other specified peripheral vascular diseases; Translations: [Other specified peripheral vascular diseases] Onset: 02-02-2025 Chronic Other circulatory disease (1 source) Elevated blood pressure; Translations: [Elevated blood pressure reading] Episodic Other connective tissue disease (20 sources) H/O: back problem; Translations: [Personal history of other musculoskeletal disorders] Episodic Other connective tissue disease (20 sources) Hand pain; Translations: [Pain in limb] Episodic Other connective tissue disease (1 source) Metatarsalgia of left foot; Translations: [Metatarsalgia, left foot] Episodic Other connective tissue disease (1 source) Pain in left foot; Translations: [Pain in left foot] Episodic Other connective tissue disease (1 source) Tendinitis of finger; Translations: [Other enthesopathies, not elsewhere classified] Episodic Other connective tissue disease (2 sources) Dupuytren's contracture; Translations: [Palmar fascial fibromatosis [Dupuytren]] Episodic Other connective tissue disease (1 source) Pain of toe of left foot; Translations: [Pain in left toe(s)] Episodic Other connective tissue disease (6 sources) Muscle weakness of limb; Translations: [Other musculoskeletal symptoms referable to limbs] Episodic Other connective tissue disease (2 sources) Trigger finger; Translations: [Trigger finger, unspecified finger] Onset: 09-02-2022 09-02-2022 Episodic Other connective tissue disease (2 sources) Plantar fasciitis of left foot; Translations: [Plantar fascial fibromatosis] 10-29-2023 Episodic Other connective tissue disease (14 sources) Arthrodesis status; Translations: [Arthrodesis status] Onset: 07-01-2023 Episodic Other connective tissue disease (1 source) Pain in right leg; Translations: [Pain in right leg] Onset: 02-02-2025 Episodic Other connective tissue disease (1 source) Pain in left leg; Translations: [Pain in left leg] Onset: 02-02-2025 Episodic Other diseases of veins and lymphatics (20 sources) Venous hypertension of lower limb; Translations: [Chronic venous hypertension with inflammation] Onset: 09-02-2022 09-02-2022 Chronic Other injuries and conditions due to external causes (1 source) Fall; Translations: [Encounter for examination and observation following other accident] 11-25-2023 Episodic Other nervous system disorders (20 sources) Carpal tunnel syndrome, left upper limb; Translations: [Carpal tunnel syndrome of left wrist] Onset: 12-26-2015 12-26-2015 Chronic Other nervous system disorders (1 source) Neurogenic claudication; 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] Chronic Other nervous system disorders (3 sources) Other chronic pain; Translations: [Other chronic pain] Onset: 07-18-2022 Chronic Other nervous system disorders (2 sources) Chronic pain syndrome; Translations: [Chronic pain syndrome] Onset: 05-03-2024 05-03-2024 Chronic Other nervous system disorders (1 source) Chronic pain syndrome; Translations: [Chronic pain syndrome] Onset: 09-02-2022 Chronic Other nervous system disorders (2 sources) Carpal tunnel syndrome of left wrist; Translations: [Left carpal tunnel syndrome] Onset: 12-26-2015 12-26-2015 Other non-traumatic joint disorders (2 sources) Pain of left wrist; Translations: [Left wrist pain] Onset: 12-26-2015 12-26-2015 Other nutritional; endocrine; and metabolic disorders (20 sources) Obesity; Translations: [Obesity, unspecified] Onset: 09-02-2022 09-02-2022 Chronic Other nutritional; endocrine; and metabolic disorders (11 sources) Overweight in adulthood with body mass index of 25 or more but less than 30; Translations: [Overweight] Episodic Other nutritional; endocrine; and metabolic disorders (1 source) Weight gain; Translations: [Abnormal weight gain] 07-06-2023 Episodic Other screening for suspected conditions (not mental disorders or infectious disease) (20 sources) Patient encounter status; Translations: [Other specified vaccination] 10-23-2022 Episodic Other skin disorders (2 sources) [place] - lesion ; Translations: [Corns and callosities] Episodic Other skin disorders (3 sources) Callosity; Translations: [Corns and callosities] Episodic Peripheral and visceral atherosclerosis (2 sources) Peripheral vascular disease; Translations: [Peripheral vascular disease, unspecified] Chronic Residual codes; unclassified (20 sources) Chronic pain; Translations: [Other chronic pain] Onset: 09-02-2022 10-23-2022 Chronic Residual codes; unclassified (20 sources) Finding related to substance use; Translations: [Opioid abuse, unspecified] Episodic Residual codes; unclassified (20 sources) H/O: gastrointestinal disease; Translations: [Personal history of other diseases of digestive system] Episodic Residual codes; unclassified (20 sources) Postmenopausal state; Translations: [Asymptomatic postmenopausal status (age-related) (natural)] Episodic Residual codes; unclassified (1 source) Pain, unspecified; Translations: [Pain, unspecified] Onset: 04-03-2023 Episodic Screening and history of mental health and substance abuse codes (20 sources) H/O: depression; Translations: [Personal history of other mental disorders] Episodic Spondylosis; intervertebral disc disorders; other back problems (20 sources) Degeneration of thoracic intervertebral disc; Translations: [Cervical spondylosis] Onset: 04-22-2022 Chronic Systemic lupus erythematosus and connective tissue disorders (4 sources) Temporal arteritis; Translations: [Other giant cell arteritis] Onset: 05-03-2024 05-03-2024 Chronic Thyroid disorders (20 sources) Hypothyroidism; Translations: [Acquired hypothyroidism] Onset: 09-02-2022 10-23-2022 Chronic Thyroid disorders (20 sources) Disorder of thyroid gland; Translations: [Disorder of thyroid, unspecified] Onset: 07-23-2016 07-23-2016 Episodic Unclassified (11 sources) Low back pain, unspecified; Translations: [Low back pain, unspecified] Onset: 04-22-2022 03-30-2024 Past or Other Problems Problem Classification Problem Date Documented Da te Episodic/Chronic Cardiac dysrhythmias (20 sources) Palpitations; Translations: [Palpitations] Onset: 07-23-2016 07-23-2016 Episodic E Codes: Fall (20 sources) Fall in home; Translations: [Unspecified fall] Onset: 09-02-2022 09-02-2022 Episodic External cause codes: Fall (1 source) Fall in home; Translations: [Fall at home] Fluid and electrolyte disorders (3 sources) Hypokalemia; Translations: [Hypokalemia] Onset: 11-25-2023 11-25-2023 Episodic Fracture of lower limb (4 sources) Metatarsal bone fracture; Translations: [Fracture of metatarsal] Episodic Fracture of upper limb (20 sources) Closed fracture of surgical neck of humerus; Translations: [Unspecified nondisplaced fracture of surgical neck of left humerus, initial encounter for closed fracture] Onset: 11-25-2023 11-25-2023 Episodic Headache; including migraine (20 sources) Acute headache; Translations: [Headache] Onset: 09-02-2022 09-02-2022 Episodic Headache; including migraine (1 source) Acute headache; Translations: [Worst headache of life] Nonspecific chest pain (20 sources) Chest pain; Translations: [Chest pain, unspecified] Onset: 09-02-2022 09-02-2022 Episodic Other acquired deformities (20 sources) Lumbar spondylolisthesis; Translations: [Spondylolisthesis, lumbar region] Onset: 03-07-2021 Episodic Other aftercare (2 sources) Encounter for follow-up examination after completed treatment for conditions other than malignant neoplasm; Translations: [Encounter for follow-up examination after completed treatment for conditions other than malignant neoplasm] Onset: 12-12-2023 Episodic Other bone disease and musculoskeletal deformities (1 source) Other specified disorders of bone density and structure, left thigh; Translations: [Oth disrd of bone density and structure, left thigh] Onset: 12-06-2022 Episodic Other connective tissue disease (20 sources) Triggering of digit; Translations: [Ganglion, left hand] Onset: 12-26-2015 12-26-2015 Episodic Other connective tissue disease (20 sources) Ganglion of flexor tendon sheath of finger; Translations: [Ganglion, left hand] Onset: 11-13-2016 11-13-2016 Episodic Other connective tissue disease (20 sources) Spasm; Translations: [Spasm of muscle] Onset: 09-02-2022 09-02-2022 Episodic Other connective tissue disease (9 sources) Pain in right hand; Translations: [Pain in right hand] Onset: 09-02-2022 09-02-2022 Episodic Other connective tissue disease (2 sources) Other symptoms and signs involving the musculoskeletal system; Translations: [Oth symptoms and signs involving the musculoskeletal system] Onset: 07-18-2022 Episodic Other connective tissue disease (20 sources) Ganglion cyst of tendon sheath of left hand; Translations: [Ganglion, left hand] Onset: 11-13-2016 11-13-2016 Episodic Other connective tissue disease (2 sources) Ganglion, left hand; Translations: [Ganglion, left hand] Onset: 11-13-2016 Episodic Other connective tissue disease (2 sources) Trigger finger, left little finger; Translations: [Trigger finger, left little finger] Onset: 11-13-2016 Episodic Other connective tissue disease (1 source) Trigger finger, left middle finger; Translations: [Trigger finger, left middle finger] Onset: 12-26-2015 Episodic Other connective tissue disease (2 sources) Pain in left foot; Translations: [Pain in left foot] Onset: 10-29-2023 Episodic Other connective tissue disease (2 sources) Plantar fascial fibromatosis; Translations: [Plantar fascial fibromatosis] Onset: 10-29-2023 Episodic Other injuries and conditions due to external causes (2 sources) Encounter for examination and observation following other accident; Translations: [Encounter for examination and observation following other accident] Onset: 11-25-2023 Episodic Other lower respiratory disease (20 sources) Cough; Translations: [Cough] Onset: 09-02-2022 09-02-2022 Episodic Other lower respiratory disease (3 sources) Dyspnea; Translations: [Shortness of breath] Onset: 04-16-2023 04-21-2023 Episodic Other lower respiratory disease (1 source) Shortness of breath; Translations: [Shortness of breath] Onset: 04-16-2023 Episodic Other non-traumatic joint disorders (20 sources) Pain in left wrist; Translations: [Pain of left wrist] Onset: 12-26-2015 12-26-2015 Episodic Other non-traumatic joint disorders (20 sources) Bilateral pain of joint of hands; Translations: [Pain in joint, hand] Onset: 09-02-2022 09-02-2022 Episodic Other screening for suspected conditions (not mental disorders or infectious disease) (5 sources) Encounter for screening for osteoporosis; Translations: [Encounter for screening for lipoid disorders] Onset: 12-06-2022 Episodic Other skin disorders (2 sources) Corns and callosities; Translations: [Corns and callosities] Onset: 06-09-2024 Episodic Phlebitis; thrombophlebitis and thromboembolism (20 sources) Acute deep venous thrombosis of popliteal vein; Translations: [Acute venous embolism and thrombosis of deep vessels of proximal lower extremity] Onset: 09-02-2022 09-02-2022 Episodic Pulmonary heart disease (6 sources) Pulmonary embolism; Translations: [Other pulmonary embolism without acute cor pulmonale] Onset: 04-16-2023 04-21-2023 Episodic Residual codes; unclassified (4 sources) Body fluid retention; Translations: [Fluid retention] Episodic Residual codes; unclassified (20 sources) Insomnia; Translations: [Insomnia, unspecified] Onset: 09-02-2022 09-02-2022 Episodic Residual codes; unclassified (4 sources) H/O: Disorder; Translations: [History of nausea and vomiting] Episodic Residual codes; unclassified (4 sources) Asymptomatic menopausal state; Translations: [Asymptomatic menopausal state] Onset: 12-06-2022 Episodic Residual codes; unclassified (4 sources) Other specified postprocedural states; Translations: [Other specified postprocedural states] Onset: 11-26-2016 Episodic Spondylosis; intervertebral disc disorders; other back problems (20 sources) Chronic back pain ; Translations: [Neck pain] Onset: 03-07-2021 07-23-2016 Episodic Sprains and strains (4 sources) Lumbar sprain; Translations: [Lumbar sprain] Episodic Substance-related disorders (20 sources) Narcotic drug user; Translations: [Opioid abuse, unspecified] Onset: 09-02-2022 09-02-2022 Episodic Syncope (20 sources) Syncope; Translations: [Near syncope] Onset: 07-23-2016 07-23-2016 Episodic Unclassified (8 sources) H/O: surgery; Translations: [S/P trigger finger release] Onset: 11-26-2016 11-26-2016 Episodic Unclassified (5 sources) Prescribed medication regimen behavior finding; Translations: [Chronic use of benzodiazepine for therapeutic purpose] Unclassified (4 sources) Patient encounter status; Translations: [Encounter for screening for other disorder] Unclassified (1 source) H/O: high risk medication; Translations: [Long-term use of high-risk medication] Unclassified (2 sources) Low back pain, unspecified; Translations: [Low back pain, unspecified] Onset: 04-22-2022 Unclassified (9 sources) Onset: 10-23-2022 Resolved: 07-25-2023 10-23-2022 Varicose veins of lower extremity (20 sources) Varicose veins of lower extremity; Translations: [Asymptomatic varicose veins] Onset: 09-02-2022 09-02-2022 Episodic NEGATED: Highlighted row has not occurred!Residual codes; unclassified (20 sources) Disease Episodic Results Test Name Value Interpretation Reference Range Facility CBC panel Auto (Bld)on 06-29 Erythrocyte distribution width (RBC) [Ratio] 13.6 % Normal 11.5-14.5 [facility] Comment on above: Performed By: #### 5 8410-2 #### JOY GUTIERREZ ([id number]) [facility] ([facility]) [address] [place] [address] Hematocrit (Bld) [Volume fraction] 40.3 % Normal 36.0-46.0 [facility] Comment on above: Performed By: #### 5 8410-2 #### JOY GUTIERREZ ([id number]) [facility] ([facility]) [address] [place] [address] 80959 Hemoglobin (Bld) [Mass/Vol] 13.0 g/dL Normal 12.0-16.0 [facility] Comment on above: Performed By: #### 5 8410-2 #### JOY GUTIERREZ ([id number]) [facility] ([facility]) [address] [place] [address] 25364 MCH (RBC) [Entitic mass] 31.0 pg Normal 26.0-34.0 [facility] Comment on above: Performed By: #### 5 8410-2 #### JOY GUTIERREZ ([id number]) [facility] ([facility]) [address] [place] [address] 51083 MCHC (RBC) [Mass/Vol] 32.3 g/dL Normal 32.0-36.0 [facility] Comment on above: Performed By: #### 5 8410-2 #### JOY GUTIERREZ ([id number]) [facility] ([facility]) [address] [place] [address] 70899 MCV (RBC) [Entitic vol] 96 fL Normal 80-100 [facility] Comment on above: Performed By: #### 5 8410-2 #### JOY GUTIERREZ ([id number]) [facility] ([facility]) [address] [place] [address] 20215 Nucleated RBC/100 WBC (Bld) [Ratio] 0.0 /100 WBCs Normal 0.0-0.0 [facility] Comment on above: Performed By: #### 5 8410-2 #### JOY GUTIERREZ ([id number]) [facility] ([facility]) [address] [place] [address] 86601 Platelets (Bld) [#/Vol] 281 x10*3/uL Normal 150-450 [facility] Comment on above: Performed By: #### 5 8410-2 #### JOY GUTIERREZ ([id number]) [facility] ([facility]) [address] [place] [address] 46814 RBC (Bld) [#/Vol] 4.19 x10*6/uL Normal 4.00-5.20 [facility] Comment on above: Performed By: #### 5 8410-2 #### JOY GUTIERREZ ([id number]) [facility] ([facility]) [address] [place] [address] 31193 WBC (Bld) [#/Vol] 6.6 x10*3/uL Normal 4.4-11.3 [facility] Comment on above: Performed By: #### 5 8410-2 #### JOY GUTIERREZ ([id number]) [facility] ([facility]) [address] [place] [address] 34218 Comprehensive metabolic 2000 panelon 06-29-2024 Albumin BCP dye [Mass/Vol] 4.1 g/dL Normal 3.4-5.0 [facility] Comment on above: Performed By: #### 2 4323-8 #### JOY GUTIERREZ ([id number]) [facility] ([facility]) [address] [place] [address] 12274 ALP [Catalytic activity/Vol] 55 U/L Normal 33-136 [facility] Comment on above: Performed By: #### 2 4323-8 #### JOY GUTIERREZ ([id number]) [facility] ([facility]) [address] [place] [address] 90231 ALT With P-5'-P [Catalytic activity/Vol] 9 U/L Normal 7-45 [facility] Comment on above: Result Comment: Ofelia ents treated with Sulfasalazine may generate falsely decreased results for ALT. Performed By: #### 2 4323-8 #### JOY GUTIERREZ ([id number]) [facility] ([facility]) [address] [place] [address] Anion gap [Moles/Vol] 8 mmol/L Low 10-20 [facility] Comment on above: Performed By: #### 2 4322-8 #### JOY GUTIERREZ ([id number]) [facility] ([facility]) [address] [place] [address] AST With P-5'-P [Catalytic activity/Vol] 19 U/L Normal 9-39 [facility] Comment on above: Performed By: #### 2 432-8 #### JOY GUTIERREZ ([id number]) [facility] ([facility]) [address] [place] [address] Bilirubin [Mass/Vol] 0.5 mg/dL Normal 0.0-1.2 [facility] Comment on above: Performed By: #### 2 4322-8 #### JOY GUTIERREZ ([id number]) [facility] ([facility]) [address] [place] [address] Calcium [Mass/Vol] 9.8 mg/dL Normal 8.6-10.3 [facility] Comment on above: Performed By: #### 2 4322-8 #### JOY GUTIERREZ ([id number]) [facility] ([facility]) [address] [place] [address] Chloride [Moles/Vol] 99 mmol/L Normal 98-107 [facility] Comment on above: Performed By: #### 2 4322-8 #### JOY GUTIERREZ ([id number]) [facility] ([facility]) [address] [place] [address] CO2 [Moles/Vol] 34 mmol/L High 21-32 [facility] Comment on above: Performed By: #### 2 3-8 #### JOY GUTIERREZ ([id number]) [facility] ([facility]) [facility] [place] [address] Creatinine [Mass/Vol] 0.83 mg/dL Normal 0.50-1.05 [facility] Comment on above: Performed By: #### 2 4323-8 #### JOY GUTIERREZ ([id number]) [facility] ([facility]) [address] [place] [address] 62666 Glomerular filtration rate/1.73 sq M.predicted 71 mL/min/1.73m*2 Normal >60 [facility] Comment on above: Result Comment: Calc ulations of estimated GFR are performed using the 2020 CKD-EPI Study Refit equation without the race variable for the IDMS-Traceable creatinine methods. https://jasn.asnjournals.org/content/early//ASN.21698893 88 Performed By: #### 2 432-8 #### JOY GUTIERREZ ([id number]) [facility] ([facility]) [address] [place] [address] 08430 Glucose [Mass/Vol] 91 mg/dL Normal 74-99 [facility] Comment on above: Performed By: #### 2 432-8 #### JOY GUTIERREZ ([id number]) [facility] ([facility]) [address] [place] [address] 09891 Potassium [Moles/Vol] 4.5 mmol/L Normal 3.5-5.3 [facility] Comment on above: Performed By: #### 2 432-8 #### JOY GUTIERREZ ([id number]) [facility] ([facility]) [address] [place] [address] 47475 Protein [Mass/Vol] 6.6 g/dL Normal 6.4-8.2 [facility] Comment on above: Performed By: #### 2 4323-8 #### JOY GUTIERREZ ([id number]) [facility] ([facility]) [address] [place] [address] 00887 Sodium [Moles/Vol] 136 mmol/L Normal 136-145 [facility] Comment on above: Performed By: #### 2 4323-8 #### JOY GUTIERREZ ([id number]) [facility] ([facility]) [address] [place] [address] Urea nitrogen [Mass/Vol] 20 mg/dL Normal 6-23 [facility] Comment on above: Performed By: #### 2 4323-8 #### JOY GUTIERREZ ([id number]) [facility] ([facility]) [address] [place] [address] Ferritinon 06-29-2024 Ferritin [Mass/Vol] 32 ng/mL Normal 8-150 [facility] Comment on above: Performed By: #### 2 276-4 #### JOY GUTIERREZ ([id number]) [facility] ([facility]) [address] [place] [address] 51974 Lipid 1996 panelon Cholesterol [Mass/Vol] 218 mg/dL High 0-199 [facility] Comment on above: Result Comment: Age Desirable Borderline High High 0-19 Y 0 - 169 170 - 199 >/= 200 20-24 Y 0 - 189 190 - 224 >/= 225 >24 Y 0 - 199 200 - 239 >/= 240 All ranges are based on fasting samples. Specific therapeutic targets will vary based on patient-specific cardiac risk. Pediatric guidelines reference:Pediatrics 2011, 128(S5).Adult guidelines reference: NCEP ATPIII Guidelines,JERICHO 2001, 258:2486-97 Venipuncture immediately after or during the administration of Metamizole may lead to falsely low results. Testing should be performed immediately prior to Metamizole dosing. Performed By: #### 2 4331-1 #### JOY GUTIERREZ ([id number]) [facility] ([facility]) [facility] [place] [address] Cholesterol in HDL [Mass/Vol] 62.0 mg/dL Normal [facility] Comment on above: Result Comment: Age Very Low Low Normal High 0-19 Y < 35 < 40 40-45 ---- 20-24 Y ---- < 40 >45 ---- >24 Y ---- < 40 40-60 >60 Performed By: #### 2 4331-1 #### JOY GUTIERREZ ([id number]) [facility] ([facility]) [facility] [place] [address] Cholesterol in LDL [Mass/Vol] 130 mg/dL High <=99 [facility] Comment on above: Result Comment: Near Borderline AGE Desirable Optimal High High Very High 0-19 Y 0 - 109 --- 110-129 >/= 130 ---- 20-24 Y 0 - 119 --- 120-159 >/= 160 ---- >24 Y 0 - 99 100-129 130-159 160-189 >/=190 Performed By: #### 2 4331-1 #### JOY GUTIERREZ ([id number]) [facility] ([facility]) [address] [place] [address] 41784 Cholesterol in VLDL [Mass/Vol] 26 mg/dL Normal 0-40 [facility] Comment on above: Performed By: #### 2 4331-1 #### JOY GUTIERREZ ([id number]) [facility] ([facility]) [address] [place] [address] 14233 CHOLESTEROL/HDL RATIO 3.5 Normal [facility] Comment on above: Result Comment: Ref Values Desirable < 3.4 High Risk > 5.0 Performed By: #### 2 4331-1 #### JOY GUTIERREZ ([id number]) [facility] ([facility]) [address] [place] [address] 91576 NON HDL CHOLESTEROL 156 mg/dL High 0-149 [facility] Comment on above: Result Comment: Age Desirable Borderline High High Very High 0-19 Y 0 - 119 120 - 144 >/= 145 >/= 160 20-24 Y 0 - 149 150 - 189 >/= 190 ---- >24 Y 30 mg/dL above LDL Cholesterol goal Performed By: #### 2 4331-1 #### JOY GUTIERREZ ([id number]) [facility] ([facility]) [address] [place] [address] 73244 Triglyceride [Mass/Vol] 132 mg/dL Normal 0-149 [facility] Comment on above: Result Comment: Age Desirable Borderline High Very High SEX:B mg/dL mg/dL mg/dL mg/dL <=14D 86-277 ---- ---- ---- 15D-365D 55-277 ---- ---- ---- 1Y-9Y 0-74 75-99 >=100 ---- 10Y-19Y 0-89 90-129 >=130 ---- 20Y-24Y 0-114 115-149 >=150 ---- >= 25Y 0-149 150-199 200-499 >=500 Venipuncture immediately after or during the administration of Metamizole may lead to falsely low results. Testing should be performed immediately prior to Metamizole dosing. Performed By: #### 2 4331-1 #### HAMILTON BRENDA ([id number]) [facility] ([facility]) [address] [place] [address] TSH WITH REFLEX TO FREE T4 I F ABNORMALon 06-29-2024 TSH Qn 0.64 m[IU]/L Normal 0.44-3.98 [facility] Comment on above: Order Comment: TSH t esting is performed using different testing methodology at [facility] than at other [facility]. Direct result comparisons should only be made within the same method. Performed By: #### T HYDS #### HAMILTON BRENDA ([id number]) [facility] ([facility]) [address] [place] [address] OP NOTEon 03-09-2024 OP NOTE REFERRING PHYSICIAN AVERY DAS MD ATTENDING PHYSICIAN AVERY DAS MD PRIMARY CARE PHYSICIAN EMMANUEL RICKETTS MD ADMITTING PHYSICIAN AVERY DAS MD PREOPERATIVE DIAGNOSES 1. Status post open reduction internal fixation left proximal humerus fracture. 2. Symptomatic hardware, left proximal humerus. POSTOPERATIVE DIAGNOSES 1. Status post open reduction internal fixation left proximal humerus fracture. 2. Symptomatic hardware, left proximal humerus. PROCEDURE Hardware removal left proximal humerus. ANESTHESIA General anesthetic. COMPLICATIONS No intraoperative complications. SPECIMENS None. ESTIMATED BLOOD LOSS 2 cc. HISTORY Christine is an 78-year-old patient who had an open reduction internal fixation of her left proximal humerus fracture 3-1/2 months ago. Has 2 of the proximal locking screws that have dislodged from the locking plate and are causing subacromial symptoms, and presents now for hardware removal of these 2 loose screws. She was explained all the risks and complications of the surgery including, but not limited to the risk of infection, bleeding, neurologic or vascular injury, the possibility of deep venous thrombosis, pulmonary embolism, myocardial infarction, stroke, or even with surgery. Explained the possibilities of continued pain, stiffness, loss of range of motion, as well as the need for future surgery. She understands this and consents for surgical intervention. We also talked about the possibility of need for more hardware in the future, but we would only be removing these 2 proximal screws at this time. The patient understands this and consents for surgery. PROCEDURE IN DETAIL Patient was met in the preoperative holding area where the left shoulder was confirmed to be the appropriate site and marked by myself. Patient was taken to the operative suite, given preoperative Kefzol per protocol as well as peripheral sedation. She is placed in the beach chair position. Left shoulder was sterilely prepped and draped using ChloraPrep solution. After sterilization of the left shoulder we did our final time-out to confirm that the left shoulder was in fact the appropriate site that had been marked by myself. We then went ahead and proceeded forward with localizing the area with fluoroscopy. After this, I used 1% lidocaine without epinephrine to anesthetize the skin over the loose screws. After adequate anesthesia, a 2 cm incision was made. The 2 proximal screws were removed without difficulty. Fluoroscopy images were saved. Wounds were then irrigated and closed with 4-0 Monocryl and 4-0 black nylon suture. The patient was placed in a sterile dressing and taken to PACU without intraoperative complication. D 03/09/2024 14:34 [id number] 03/09/2024 15:16 MCB/REZAL AUTHENTICATED BY AVERY DAS, ON 03/10/2024 11:16:34 [facility] XR OR SHOULDER LEFT 2+ VIEWS on 03-09-2024 XR OR SHOULDER LEFT 2+ VIEWS EXAMINATION: XR OR SHOULDER LEFT 2+ VIEWS HISTORY: ORDERING SYSTEM PROVIDED HISTORY: Lt. Shoulder Screw Removal, TECHNOLOGIST PROVIDED HISTORY: Illness/Other Reason for exam: Lt. Screw removal Shoulder Encounter Type: Initial Additional signs and symptoms: Fluoro dose in mGy: 0.5 ORDERING SYSTEM PROVIDED DIAGNOSIS CODES: S42.292D Humerus head fracture, left, with routine healing, subsequent encounter COMPARISON: Left shoulder series 02/06/2024. TECHNIQUE: RADIATION EXPOSURE: Fluoro dose in Ka,r mGy: 0.5 Three intraoperative fluoroscopic spot films of the proximal left humerus were submitted from the operative procedure. FINDINGS: These films document removal of the 2 superior screws that were noted be backed out on the prior films. Remaining plate and screw fixation intact. IMPRESSION: Fluoroscopic film showing interval hardware removal. Please see operative report for further details. [employer] Workstation ID: [id number] Dictated by: LUIS CERVANTES on FriMar 09, 2024 3:52:35 PM EDT Transcribed by: MARELY MAY on FriMar 09, 2024 4:17:29 PM EDT Finalized by: LUIS CERVANTES on FriMar 10, 2024 7:18:04 AM EDT [facility] Comment on above: Order Comment: Injur y/Trauma or Illness?:Illness/OtherHow long have you had these symptoms (acute/chronic)?:ChronicReason for exam?:Lt. Screw removal ShoudlerType of Exam?:InitialAdditional signs and symptoms?:,Fluoro time in minutes:0.2515 secFluoro dose in mGy?:0.5 MR LUMBAR SPINE WITHOUT CONT [facility] 03-05-2024 MR LUMBAR SPINE WITHOUT CONTRAST EXAMINATION: MR THORACIC SPINE WITHOUT CONTRAST; MR LUMBAR SPINE WITHOUT CONTRAST HISTORY: ORDERING SYSTEM PROVIDED HISTORY: Other forms of scoliosis, lumbar region, TECHNOLOGIST PROVIDED HISTORY: Illness/Other Reason for exam: back pain Encounter Type: Initial Additional signs and symptoms: back pain ORDERING SYSTEM PROVIDED DIAGNOSIS CODES: M41.86 Other forms of scoliosis, lumbar region Z98.1 Arthrodesis status M54.16 Lumbar radiculopathy COMPARISON: 11/25/2023. TECHNIQUE: MRI of the thoracic spine without contrast. Sequences obtained by standard department protocol. CONTRAST: No intravenous contrast was utilized. FINDINGS: No abnormal signal in the thoracic spinal cord. Vertebral body height is preserved. No definitive acute fracture. Multilevel mild posterior disc protrusions extending from the lower cervical spine and throughout the thoracic spine, causing mild anterior thecal sac compression. No significant spinal canal stenosis. Mild bilateral neural foraminal narrowing at bilateral T10-T11 and T11-T12. No other areas of significant neural foraminal narrowing. Schmorl's node at the superior endplate of T11. Lumbar spine: The conus ends at L1. No abnormal signal of the terminal spinal cord. L1-L2: Right moderate neural foraminal narrowing. Left neural foramen is open. L2-L3: No spinal canal stenosis. Mild posterior disc protrusion. Left neural foramen is open. Right mild neural foraminal narrowing. Mild facet joint arthropathy. L3-L4: Posterior spinal fusion hardware. There is surrounding susceptibility artifact. Mild neural foraminal narrowing. No spinal canal stenosis. L4-L5: Anterolisthesis of L4 on L5 measuring 0.9 cm. Posterior laminectomy defects. Right neural foramen is open. Left mild neural foraminal narrowing. Posterior fusion hardware. L5-S1: Moderate disc degeneration. Broad-based posterior disc bulge. No spinal canal stenosis. Mild left neural foraminal narrowing. Right neural foramen is open. Mild facet joint arthropathy. Mild leftward curvature of the lumbar spine centered at T12. Mild degeneration of the sacroiliac joints. IMPRESSION: 1. No significant spinal canal stenosis of the thoracic spine. 2. Multilevel mild posterior disc protrusions of the thoracic spine, causing mild anterior thecal sac compression. 3. Posterior spinal fusion hardware at L3-L4 and L4-L5. There is surrounding susceptibility artifact. No apparent hardware complication. 4. Posterior disc protrusions at L1-L2 and L2-L3. 5. No significant spinal canal stenosis of the lumbar spine. 6. Other findings as described. IPR/ads Workstation ID: [id number] Dictated by: KANA WOLFF on FriMar 08, 2024 11:34:41 AM EDT Transcribed by: RUBA LORENZO on FriMar 08, 2024 11:43:29 AM EDT Finalized by: KANA WOLFF on FriMar 08, 2024 11:47:59 AM EDT Normal [facility] Comment on above: Order Comment: PT/FA XInjury/Trauma or Illness?:Illness/OtherHow long have you had these symptoms (acute/chronic)?:ChronicReason for exam?:Other forms of scoliosis, lumbar region, Arthrodesis status, Lumbar radiculopathyType of Exam?:InitialAdditional signs and symptoms?:back pain MR THORACIC SPINE WITHOUT CO NTRASTon 03-05-2024 MR THORACIC SPINE WITHOUT CONTRAST EXAMINATION: MR THORACIC SPINE WITHOUT CONTRAST; MR LUMBAR SPINE WITHOUT CONTRAST HISTORY: ORDERING SYSTEM PROVIDED HISTORY: Other forms of scoliosis, lumbar region, TECHNOLOGIST PROVIDED HISTORY: Illness/Other Reason for exam: back pain Encounter Type: Initial Additional signs and symptoms: back pain ORDERING SYSTEM PROVIDED DIAGNOSIS CODES: M41.86 Other forms of scoliosis, lumbar region Z98.1 Arthrodesis status M54.16 Lumbar radiculopathy COMPARISON: 11/25/2023. TECHNIQUE: MRI of the thoracic spine without contrast. Sequences obtained by standard department protocol. CONTRAST: No intravenous contrast was utilized. FINDINGS: No abnormal signal in the thoracic spinal cord. Vertebral body height is preserved. No definitive acute fracture. Multilevel mild posterior disc protrusions extending from the lower cervical spine and throughout the thoracic spine, causing mild anterior thecal sac compression. No significant spinal canal stenosis. Mild bilateral neural foraminal narrowing at bilateral T10-T11 and T11-T12. No other areas of significant neural foraminal narrowing. Schmorl's node at the superior endplate of T11. Lumbar spine: The conus ends at L1. No abnormal signal of the terminal spinal cord. L1-L2: Right moderate neural foraminal narrowing. Left neural foramen is open. L2-L3: No spinal canal stenosis. Mild posterior disc protrusion. Left neural foramen is open. Right mild neural foraminal narrowing. Mild facet joint arthropathy. L3-L4: Posterior spinal fusion hardware. There is surrounding susceptibility artifact. Mild neural foraminal narrowing. No spinal canal stenosis. L4-L5: Anterolisthesis of L4 on L5 measuring 0.9 cm. Posterior laminectomy defects. Right neural foramen is open. Left mild neural foraminal narrowing. Posterior fusion hardware. L5-S1: Moderate disc degeneration. Broad-based posterior disc bulge. No spinal canal stenosis. Mild left neural foraminal narrowing. Right neural foramen is open. Mild facet joint arthropathy. Mild leftward curvature of the lumbar spine centered at T12. Mild degeneration of the sacroiliac joints. IMPRESSION: 1. No significant spinal canal stenosis of the thoracic spine. 2. Multilevel mild posterior disc protrusions of the thoracic spine, causing mild anterior thecal sac compression. 3. Posterior spinal fusion hardware at L3-L4 and L4-L5. There is surrounding susceptibility artifact. No apparent hardware complication. 4. Posterior disc protrusions at L1-L2 and L2-L3. 5. No significant spinal canal stenosis of the lumbar spine. 6. Other findings as described. IPR/ads Workstation ID: [id number] Dictated by: KANA WOLFF on FriMar 08, 2024 11:34:41 AM EDT Transcribed by: RUBA LORENZO on FriMar 08, 2024 11:43:29 AM EDT Finalized by: KANA WOLFF on FriMar 08, 2024 11:47:59 AM EDT [facility] Comment on above: Order Comment: PT/FA XInjury/Trauma or Illness?:Illness/OtherHow long have you had these symptoms (acute/chronic)?:ChronicReason for exam?:back painType of Exam?:InitialAdditional signs and symptoms?:back pain XR SHOULDER LEFT 2+ VIEWS (S TANDARD)on 02-06-2024 XR SHOULDER LEFT 2+ VIEWS (STANDARD) EXAMINATION: XR SHOULDER LEFT 2+ VIEWS (STANDARD) HISTORY: ORDERING SYSTEM PROVIDED HISTORY: Follow-up exam, TECHNOLOGIST PROVIDED HISTORY: Injury/Trauma Reason for exam: P/O left humerus ORIF 11/26/23 Cancer History: u Surgery, RadiationHistory: left bunionectomy Encounter Type: Subsequent/Follow-up Mechanism of injury: fall ORDERING SYSTEM PROVIDED DIAGNOSIS CODES: Z09 Follow-up exam COMPARISON: 01/09/2024 FINDINGS: Three views of the left shoulder. Stable alignment of mildly displaced left humeral neck fracture with plate screw fixation. Similar back out of 2 upper cortical screws. Mild interval increased peripheral callus formation. No new additional fractures. Normal AC and glenohumeral joint alignment. Moderate AC joint degenerative changes. IMPRESSION: Stable alignment of mildly displaced left humeral neck fracture with stable underlying hardware fixation. Mild interval increased callus formation compared to 01/09/2024. ST/kls Workstation ID: [id number] Dictated by: LI MERCADO on [facility] Feb 07, 2024 6:08:17 AM EDT Transcribed by: CASSANDRA SU on [facility] Feb 07, 2024 6:49:05 AM EDT Finalized by: LI MERCADO on [place] Feb 08, 2024 9:46:32 PM EDT Normal [facility] Comment on above: Order Comment: Injur y/Trauma or Illness?:Injury/Trauma How long have you had these symptoms (acute/chronic)?:Acute Reason for exam?:P/O left humerus ORIF 11/26/23 History of cancer?:u Surgeries, chemotherapy, or radiation?:left bunionectomy Type of Exam?:Subsequent/Follow-up Mechanism of injury?:fall XR SHOULDER LEFT 2+ VIEWS (S TANDARD)on 01-09-2024 XR SHOULDER LEFT 2+ VIEWS (STANDARD) EXAMINATION: XR SHOULDER LEFT 2+ VIEWS (STANDARD) HISTORY: ORDERING SYSTEM PROVIDED HISTORY: Follow-up exam, TECHNOLOGIST PROVIDED HISTORY: Illness/Other Reason for exam: P/O ORIF left proximal humerus 11/26/23 Cancer History: u Surgery, RadiationHistory: left bunionectomy Encounter Type: Subsequent/Follow-up Additional signs and symptoms: fall on 11/25/23 ORDERING SYSTEM PROVIDED DIAGNOSIS CODES: Z09 Follow-up exam COMPARISON: 12/12/2023. FINDINGS: Three views of the left shoulder. Stable alignment of mildly displaced left humeral neck fracture with plate and screw hardware fixation. Similar back out of a couple upper cortical screws. Osseous fracture site reveals mild increased peripheral callus formation. No additional fractures. Normal AC and glenohumeral joint alignment. Mild AC joint degenerative changes. IMPRESSION: Stable alignment of left proximal humerus fracture with mild increased callus formation. Similar appearance of underlying plate and screw hardware fixation with back out of a couple cortical screws. /[facility] Workstation ID: [id number] Dictated by: LI MERCADO on FriJan 12, 2024 5:32:28 AM EDT Transcribed by: ANA FRANCIS on FriJan 12, 2024 5:34:14 AM EDT Finalized by: LI MERCADO on FriJan 12, 2024 4:56:18 PM EDT Normal [facility] Comment on above: Order Comment: Injur y/Trauma or Illness?:Illness/Other How long have you had these symptoms (acute/chronic)?:Chronic Reason for exam?:P/O ORIF left proximal humerus 11/26/23 History of cancer?:u Surgeries, chemotherapy, or radiation?:left bunionectomy Type of Exam?:Subsequent/Follow-up Additional signs and symptoms?:fall on 11/25/23 XR SHOULDER LEFT 2+ VIEWS (S TANDARD)on 12-12-2023 XR SHOULDER LEFT 2+ VIEWS (STANDARD) EXAMINATION: XR SHOULDER LEFT 2+ VIEWS (STANDARD) HISTORY: ORDERING SYSTEM PROVIDED HISTORY: Follow-up exam, TECHNOLOGIST PROVIDED HISTORY: Illness/Other Reason for exam: p/o 2 week follow up left humerus proximal Cancer History: u Surgery, RadiationHistory: left bunionectomy Encounter Type: Subsequent/Follow-up Additional signs and symptoms: fall ORDERING SYSTEM PROVIDED DIAGNOSIS CODES: Z09 Follow-up exam COMPARISON: 11/26/2023 fluoroscopic radiograph of the left shoulder. 11/25/2023 left shoulder radiograph. FINDINGS: Three views of the left shoulder. Improved alignment of left humerus surgical neck fracture status post plate and screw hardware fixation. Several of the cephalad cortical screws demonstrate back-out measuring up to 6 mm. No new additional fractures. Normal AC joint alignment. IMPRESSION: Improved alignment left proximal humerus fracture status post plate and screw hardware fixation. Back-out of several of the upper cortical screws identified. [employer] Workstation ID: [id number] Dictated by: LI MERCADO on FriDecember 14, 2023 6:14:10 AM EDT Transcribed by: MAJO SLATER on FriDecember 14, 2023 6:44:09 AM EDT Finalized by: LI MERCADO on FriDecember 16, 2023 7:51:38 AM EDT Normal [facility] Comment on above: Order Comment: Injur y/Trauma or Illness?:Illness/Other How long have you had these symptoms (acute/chronic)?:Unknown Reason for exam?:p/o 2 week follow up left humerus proximal History of cancer?:u Surgeries, chemotherapy, or radiation?:left bunionectomy Type of Exam?:Subsequent/Follow-up Additional signs and symptoms?:fall BASIC METABOLIC PANEL 11-18 Anion gap [Moles/Vol] 9 mmol/L [facility] 10-20 [facility] Comment on above: Order Comment: Injur y/Trauma or Illness?:Injury/Trauma How long have you had these symptoms (acute/chronic)?:Acute Reason for exam?:fall, head trauma Type of Exam?:Initial Mechanism of injury?:mechanical fall from standing. Hit head on ground and has neck pain. C-Collar in place on arrival. Pt also complains of severe left shoulder pain from fall. Performed By: #### [id number] ####[facility] [address], [place] [address] Tanvir Haile M.D. [id number] Calcium [Mass/Vol] 9.0 mg/dL Normal 8.4-10.2 [facility] Comment on above: Order Comment: Injur y/Trauma or Illness?:Injury/Trauma How long have you had these symptoms (acute/chronic)?:Acute Reason for exam?:fall, head trauma Type of Exam?:Initial Mechanism of injury?:mechanical fall from standing. Hit head on ground and has neck pain. C-Collar in place on arrival. Pt also complains of severe left shoulder pain from fall. Performed By: #### [id number] #### LAB [address] [place] [address] Tanvir Haile M.D. [id number] Chloride [Moles/Vol] 102 mmol/L Normal 98-108 [facility] Comment on above: Order Comment: Injur y/Trauma or Illness?:Injury/Trauma How long have you had these symptoms (acute/chronic)?:Acute Reason for exam?:fall, head trauma Type of Exam?:Initial Mechanism of injury?:mechanical fall from standing. Hit head on ground and has neck pain. C-Collar in place on arrival. Pt also complains of severe left shoulder pain from fall. Performed By: #### 4 [id number] #### LAB [address] [place] [address] Tanvir Haile M.D. [id number] Creatinine [Mass/Vol] 0.51 mg/dL Low 0.60-1.10 [facility] Comment on above: Order Comment: Injur y/Trauma or Illness?:Injury/Trauma How long have you had these symptoms (acute/chronic)?:Acute Reason for exam?:fall, head trauma Type of Exam?:Initial Mechanism of injury?:mechanical fall from standing. Hit head on ground and has neck pain. C-Collar in place on arrival. Pt also complains of severe left shoulder pain from fall. Performed By: #### 4 [id number] #### LAB [address] [place] [address] Tanvir Haile M.D. [id number] EGFR 94 mL/min/1.73 m2 Normal >=60 [facility] Comment on above: Order Comment: Injur y/Trauma or Illness?:Injury/Trauma How long have you had these symptoms (acute/chronic)?:Acute Reason for exam?:fall, head trauma Type of Exam?:Initial Mechanism of injury?:mechanical fall from standing. Hit head on ground and has neck pain. C-Collar in place on arrival. Pt also complains of severe left shoulder pain from fall. Result Comment: Gayle mated GFR was calculated using the 2020 CKD-EPI creatinine equation. Performed By: #### 4 [id number] #### LAB [address] [place] [address] Tanvir Haile M.D. [id number] Glucose [Mass/Vol] 97 mg/dL Normal 65-99 [facility] Comment on above: Order Comment: Injur y/Trauma or Illness?:Injury/Trauma How long have you had these symptoms (acute/chronic)?:Acute Reason for exam?:fall, head trauma Type of Exam?:Initial Mechanism of injury?:mechanical fall from standing. Hit head on ground and has neck pain. C-Collar in place on arrival. Pt also complains of severe left shoulder pain from fall. Performed By: #### [id number] #### LAB [address] [place] [address] Tanvir Haile M.D. [id number] HCO3 (Bld) [Moles/Vol] 28 mmol/L Normal 21-32 [facility] Comment on above: Order Comment: Injur y/Trauma or Illness?:Injury/Trauma How long have you had these symptoms (acute/chronic)?:Acute Reason for exam?:fall, head trauma Type of Exam?:Initial Mechanism of injury?:mechanical fall from standing. Hit head on ground and has neck pain. C-Collar in place on arrival. Pt also complains of severe left shoulder pain from fall. Performed By: #### 4 [id number] #### LAB [address], [place] [address] Tanvir Haile M.D. [id number] Potassium [Moles/Vol] 4.1 mmol/L Normal 3.5-5.1 [facility] Comment on above: Order Comment: Injur y/Trauma or Illness?:Injury/Trauma How long have you had these symptoms (acute/chronic)?:Acute Reason for exam?:fall, head trauma Type of Exam?:Initial Mechanism of injury?:mechanical fall from standing. Hit head on ground and has neck pain. C-Collar in place on arrival. Pt also complains of severe left shoulder pain from fall. Performed By: #### 4 [id number] #### LAB [address] [place] [address] Tanvir Haile M.D. [id number] Sodium [Moles/Vol] 135 mmol/L Normal 135-145 [facility] Comment on above: Order Comment: Injur y/Trauma or Illness?:Injury/Trauma How long have you had these symptoms (acute/chronic)?:Acute Reason for exam?:fall, head trauma Type of Exam?:Initial Mechanism of injury?:mechanical fall from standing. Hit head on ground and has neck pain. C-Collar in place on arrival. Pt also complains of severe left shoulder pain from fall. Performed By: #### 4 [id number] #### LAB [address] [place] [address] Tanvir Haile M.D. [id number] Urea nitrogen [Mass/Vol] 16 mg/dL Normal 8-25 [facility] Comment on above: Order Comment: Injur y/Trauma or Illness?:Injury/Trauma How long have you had these symptoms (acute/chronic)?:Acute Reason for exam?:fall, head trauma Type of Exam?:Initial Mechanism of injury?:mechanical fall from standing. Hit head on ground and has neck pain. C-Collar in place on arrival. Pt also complains of severe left shoulder pain from fall. Performed By: #### 4 [id number] #### LAB [address] [place] [address] Tanvir Haile M.D. [id number] Urea nitrogen/Creatinine [Mass ratio] 31.4 mg/mg High 10.0-20.0 [facility] Comment on above: Order Comment: Injur y/Trauma or Illness?:Injury/Trauma How long have you had these symptoms (acute/chronic)?:Acute Reason for exam?:fall, head trauma Type of Exam?:Initial Mechanism of injury?:mechanical fall from standing. Hit head on ground and has neck pain. C-Collar in place on arrival. Pt also complains of severe left shoulder pain from fall. Performed By: #### 4 [id number] #### LAB [address], [place] [address] Tanvir Haile M.D. [id number] Basic metabolic 2000 panelon 11-29-2023 Anion gap [Moles/Vol] 9 mmol/L Low 10 - 20 mmol/L [facility] Calcium [Mass/Vol] 9.0 mg/dL 8.4 - 10. 2 mg/dL [facility] Chloride [Moles/Vol] 102 mmol/L 98 - 108 mmol/L [facility] Creatinine [Mass/Vol] 0.51 mg/dL Low 0.60 - 1.10 mg/dL [facility] GFR/1.73 sq M.predicted CKD-EPI (S/P/Bld) [Vol rate/Area] 94 - PINF [facility] Comment on above: Estimated GFR was ca lculated using the 2020 CKD-EPI creatinine equation. Glucose [Mass/Vol] 97 mg/dL 65 - 99 mg/dL [facility] HCO3 [Moles/Vol] 28 mmol/L 21 - 32 mmol/L [facility] Interpretation and review of laboratory results Abnormal [facility] Potassium [Moles/Vol] 4.1 mmol/L 3.5 - 5.1 mmol/L [facility] Sodium [Moles/Vol] 135 mmol/L 135 - 145 mmol/L [facility] Urea nitrogen [Mass/Vol] 16 mg/dL 8 - 25 mg/dL [facility] Urea nitrogen/Creatinine [Mass ratio] 31.4 mg/mg High 10.0 - 20.0 [facility] has implemented the eGFR calculation approach that does not have a coefficient for race that conforms to the NKF-ASN Task Force Recommendations. [facility] HEMOGLOBIN AND HEMATOCRITon 11-29-2023 Hematocrit (Bld) [Volume fraction] 27.5 % Low 36.0-46.0 [facility] Comment on above: Performed By: #### 4 [id number] ####[facility] [address], [place] [address] Tanvir Haile M.D. [id number] Hemoglobin (Bld) [Mass/Vol] 9.0 g/dL Low 12.0-16.0 [facility] Comment on above: Performed By: #### 4 [id number] #### LAB [address], [place] [address] Tanvir Haile M.D. [id number] Hemoglobin and Hematocrit pa hermes (Bld)on 11-29-2023 Hematocrit (Bld) [Volume fraction] 27.5 % Low 36.0 - 46.0 % [facility] Hemoglobin (Bld) [Mass/Vol] 9.0 g/dL Low 12.0 - 16.0 g/dL [facility] Interpretation and review of laboratory results Abnormal [facility] Immunoglobulin light chains. free panel (S)Ordered By: Danielle Capellan on 11-29-2023 Ig Elida Free Light Chain 15.76 mg/L 3.30 - 19.40 mg/L [facility] Immunoglobulin light chains.kappa.free/I mmunoglobulin light chains.lambda.free (S) [Mass ratio] 1.02 0.26 - 1.65 [facility] Immunoglobulin light chains.lambda.free [Mass/Vol] 15.39 mg/L 5.71 - 26.30 mg/L [facility] Interpretation and review of laboratory results Normal [facility] ALBUMINon 11-28-2023 Albumin [Mass/Vol] 2.9 g/dL Low 3.2-5.2 [facility] Comment on above: Performed By: #### 4 [id number] #### LAB [address], [place] [address] Tanvir Haile M.D. [id number] Albuminon 11-28-2023 Albumin [Mass/Vol] 2.9 g/dL Low 3.2 - 5.2 g/dL [facility] Albumin [Mass/Vol]on 024 Interpretation and review of laboratory results Abnormal [facility] BASIC METABOLIC PANELon 11-18 Anion gap [Moles/Vol] 11 mmol/L Normal 10-20 [facility] Comment on above: Order Comment: [facility] has implemented the eGFR calculation approach that does not have a coefficient for race that conforms to the NKF-ASN Task Force Recommendations. Performed By: #### 4 [id number] #### LAB [address], [place] [address] Tanvir Haile M.D. [id number] Calcium [Mass/Vol] 8.6 mg/dL Normal 8.4-10.2 [facility] Comment on above: Order Comment: [facility] has implemented the eGFR calculation approach that does not have a coefficient for race that conforms to the NKF-ASN Task Force Recommendations. Performed By: #### 4 [id number] #### LAB [address] [place] [address] Tanvir Haile M.D. [id number] Chloride [Moles/Vol] 100 mmol/L Normal 98-108 [facility] Comment on above: Order Comment: [facility] has implemented the eGFR calculation approach that does not have a coefficient for race that conforms to the NKF-ASN Task Force Recommendations. Performed By: #### 4 [id number] #### LAB [address] [place] [address] Tanvir Haile M.D. [id number] Creatinine [Mass/Vol] 0.55 mg/dL Low 0.60-1.10 [facility] Comment on above: Order Comment: [facility] has implemented the eGFR calculation approach that does not have a coefficient for race that conforms to the NKF-ASN Task Force Recommendations. Performed By: #### 4 6116 #### LAB [address] [place] [address] Tanvir Haile M.D. [id number] EGFR 93 mL/min/1.73 m2 Normal >=60 [facility] Comment on above: Order Comment: [facility] has implemented the eGFR calculation approach that does not have a coefficient for race that conforms to the NKF-ASN Task Force Recommendations. Result Comment: Gayle mated GFR was calculated using the 2020 CKD-EPI creatinine equation. Performed By: #### 4 [id number] #### LAB [address] [place] [address] Tanvir Haile M.D. [id number] Glucose [Mass/Vol] 98 mg/dL Normal 65-99 [facility] Comment on above: Order Comment: [facility] has implemented the eGFR calculation approach that does not have a coefficient for race that conforms to the NKF-ASN Task Force Recommendations. Performed By: #### 4 6124 ####[facility] [address] [place] [address] Tanvir Haile M.D. [id number] HCO3 (Bld) [Moles/Vol] 26 mmol/L Normal 21-32 [facility] Comment on above: Order Comment: [facility] has implemented the eGFR calculation approach that does not have a coefficient for race that conforms to the NKF-ASN Task Force Recommendations. Performed By: #### 4 [id number] #### LAB [address] [place] [address] Tanvir Haile M.D. [id number] Potassium [Moles/Vol] 3.8 mmol/L Normal 3.5-5.1 [facility] Comment on above: Order Comment: [facility] has implemented the eGFR calculation approach that does not have a coefficient for race that conforms to the NKF-ASN Task Force Recommendations. Performed By: #### 4 [id number] #### LAB [address] [place] [address] Tanvir Haile M.D. [id number] Sodium [Moles/Vol] 133 mmol/L Low 135-145 [facility] Comment on above: Order Comment: [facility] has implemented the eGFR calculation approach that does not have a coefficient for race that conforms to the NKF-ASN Task Force Recommendations. Performed By: #### 4 6124 #### LAB [address] [place] [address] Tanvir Haile M.D. [id number] Urea nitrogen [Mass/Vol] 19 mg/dL Normal 8-25 [facility] Comment on above: Order Comment: [facility] has implemented the eGFR calculation approach that does not have a coefficient for race that conforms to the NKF-ASN Task Force Recommendations. Performed By: #### 4 6124 #### LAB [address] [place] [address] Tanvir Haile M.D. [id number] Urea nitrogen/Creatinine [Mass ratio] 34.5 mg/mg High 10.0-20.0 [facility] Comment on above: Order Comment: [facility] has implemented the eGFR calculation approach that does not have a coefficient for race that conforms to the NKF-ASN Task Force Recommendations. Performed By: #### 4 6124 ####[facility] [address], [place] [address] Tanvir Haile M.D. [id number] Bacteria identified Aer cx N om (Unsp spec)Ordered By: Emmie Méndez on 11-28-2023 [facility] Basic metabolic 2000 panelon 11-28-2023 Anion gap [Moles/Vol] 11 mmol/L 10 - 20 mmol/L [facility] Calcium [Mass/Vol] 8.6 mg/dL 8.4 - 10. 2 mg/dL [facility] Chloride [Moles/Vol] 100 mmol/L 98 - 108 mmol/L [facility] Creatinine [Mass/Vol] 0.55 mg/dL Low 0.60 - 1.10 mg/dL [facility] GFR/1.73 sq M.predicted CKD-EPI (S/P/Bld) [Vol rate/Area] 93 - PINF [facility] Comment on above: Estimated GFR was ca lculated using the 2020 CKD-EPI creatinine equation. Glucose [Mass/Vol] 98 mg/dL 65 - 99 mg/dL [facility] HCO3 [Moles/Vol] 26 mmol/L 21 - 32 mmol/L [facility] Interpretation and review of laboratory results Abnormal [facility] Potassium [Moles/Vol] 3.8 mmol/L 3.5 - 5.1 mmol/L [facility] Sodium [Moles/Vol] 133 mmol/L Low 135 - 145 mmol/L [facility] Urea nitrogen [Mass/Vol] 19 mg/dL 8 - 25 mg/dL [facility] Urea nitrogen/Creatinine [Mass ratio] 34.5 mg/mg High 10.0 - 20.0 [facility] has implemented the eGFR calculation approach that does not have a coefficient for race that conforms to the NKF-ASN Task Force Recommendations. [facility] CONSULTon 11-28-2023 CONSULT General Cardiology I npatient Cardiology Consult Note Heart & Vascular [facility] 11/25/2023 Mari Galvin MD [address] [facility] [id number] CARDIOLOGY CONSULT NOTE Patient Name: Christine Mays Admit Date: [id number] MR #: [id number] : 1945 Physicians: Emmanuel Ricketts MD (Family) Kindly asked to evaluate Christine Mays for chief complaint of near syncope . ASSESSMENT and PLAN: 1. Orthostatic hypotension Multifactorial-consider recent surgery, blood loss (though Hgb within range for her normal), low albumin (2.9 low oncotic pressure) as well as the fact that she is still on atenolol, all of these factors likely contributing to orthostatic hypotension Will hold atenolol for now, can consider using something like losartan at night for blood pressure, may be 25 mg. Given atenolol with alpha blockade properties, this may not be helping her intrinsic vasoreactivity with standing Encourage high-protein consumption, consider supplemental fluids with Gatorade etc., and sure Agree with SOCORRO hose, abdominal binders, patient should also be instructed to stand slowly and move arms and kick legs prior to standing Will await formal echocardiogram read however no severe valvular disease identified on exam If necessary consider Florinef or midodrine however would focus on increasing nutrition and supplementing with Ensure Just for completeness sake will send amyloid labs though again echocardiogram does not seem consistent The following [employer] risk variables were noted and present on admission: Admitted with these risk variables:Protein Calorie Malnutrition. Please see assessment and plan for further details. Thank you for this interesting clinical case. Cardiology will follow peripherally until results of blood work are back Mari Galvin MD, [facility] Cardiovascular Medicine [facility] History of Present Illness: This is a 78-year-old female with past medical history of hypertension who had a mechanical fall from standing, and is now exhibiting orthostatic hypotension. Ordinarily at home patient states that she eats well, does not have any dizziness upon standing. She has no exertional chest pain or pressure or shortness of breath. Objective History: Past Medical History: Diagnosis Date Anxiety Chronic back pain DDD (degenerative disc disease), lumbar Disease of thyroid gland Headache, tension-type Spinal stenosis Past Surgical History: Procedure Laterality Date BREAST REDUCTION CHOLECYSTECTOMY FOOT SURGERY Right HYSTERECTOMY ORIF HUMERUS Left 11/26/2023 Procedure: ORIF left proximal humerous; Surgeon: Avery Das MD; Location: Main OR; Service: Orthopedic PILONIDAL CYST TRIGGER FINGER RELEASE Left Family History Problem Relation Age of Onset Heart disease Father Heart attack Sister Heart disease Brother Heart disease Brother Social History Socioeconomic History Marital status: Tobacco Use Smoking status: Former Packs/day: .5 Types: Cigarettes Smokeless tobacco: Never Vaping Use Vaping Use: Never used Substance and Sexual Activity Alcohol use: Yes Comment: wine rarely Drug use: No Sexual activity: Not Currently Social Determinants of Health Food Insecurity: No Food Insecurity (11/26/2023) Hunger Vital Sign Worried About Running Out of Food in the Last Year: Never true Ran Out of Food in the Last Year: Never true Transportation Needs: No Transportation Needs (11/26/2023) PRAPARE - Transportation Lack of Transportation (Medical): No Lack of Transportation (Non-Medical): No Housing Stability: High Risk (11/26/2023) Housing Stability Vital Sign Unable to Pay for Housing in the Last Year: No Number of Places Lived in the Last Year: 16 Unstable Housing in the Last Year: No Tobacco & Smokeless: Tobacco Use Smoking status: Former Packs/day: .5 Types: Cigarettes Smokeless tobacco: Never Allergy Information: I have reviewed the patient's allergies. Nickel and Codeine Home Medications: Outpatient Medications as of 11/28/2023 Medication Sig acetaminophen (TYLENOL ER) 650 MG CR tablet Take 2 (two) tablets (1,300 mg total) by mouth At NOON . atenoloL (TENORMIN) 25 MG tablet Take 1 (one) tablet (25 mg total) by mouth daily . levothyroxine (SYNTHROID, LEVOTHROID) 112 MCG tablet Take 1 (one) tablet (112 mcg total) by mouth once daily . meloxicam (MOBIC) 7.5 MG tablet Take 1 (one) tablet to 2 (two) tablets (7.5-15 mg total) by mouth daily . traZODone (DESYREL) 50 MG tablet Take 1 (one) tablet (50 mg total) by mouth nightly . triamterene-hydrochlorothiaz rebeca (MAXZIDE) 75-50 mg per tablet Take 1 (one) tablet by mouth daily . gabapentin (NEURONTIN) 300 MG capsule (more content not included)... Normal [facility] ECHOCARDIOGRAM COMPLETEon ECHOCARDIOGRAM COMPLETE Patient Info Name: CHRISTINE MAYS Age: 78 years : 1945 Gender: Female Ht: 152 cm Wt: 64 kg BSA: 1.67 m2 HR: 70 bpm BP: 146 / 68 mmHg Heart Rhythm: Sinus Rhythm Technical Quality: Fair Exam Date: 11/28/2023 12:36 PM Patient Status: Inpatient Director Of Occupational Therapy: Natalie Martin RDCS Exam Type: ECHOCARDIOGRAM COMPLETE Study Info Indications R55 - Syncope and collapse Referring Physician: LUIS M Rooney; [id number] BMI: 27.54 kg/m2 Summary 1. Normal LV chamber size. There is mild concentric left ventricular hypertrophy. Systolic function is hyperdynamic with no regional wall motion abnormalities. Estimated ejection fraction of >70%. 2. The left ventricular diastolic function is grade II diastolic dysfunction. 3. Right ventricular size and systolic function are normal. 4. There is no hemodynamically significant valve disease. 5. There is borderline pulmonary hypertension, estimated right ventricle systolic pressure is 39 mmHg. History/Risk Factors Hypertension: Yes Tobacco Use: Former Family History: Coronary Artery Disease Procedure(s): Complete two-dimensional, color flow and Doppler transthoracic echocardiogram is performed. Left Ventricle Normal LV chamber size. There is mild concentric left ventricular hypertrophy. Systolic function is hyperdynamic with no regional wall motion abnormalities. Estimated ejection fraction of >70%. The left ventricular diastolic function is grade II diastolic dysfunction. Right Ventricle Right ventricular size and systolic function are normal. Left Atria Left atrial chamber is mildly enlarged with a left atrial volume index of 41 ml/m2 by BP MOD. Right Atria Right atrial chamber dimension is normal. Aortic Valve The aortic valve is trileaflet. There is mild aortic valve sclerosis. There is no aortic valve stenosis. There is no aortic valve regurgitation. Pulmonic Valve The pulmonic valve is not well visualized. There is no pulmonic valve stenosis. There is mild pulmonic regurgitation. Mitral Valve The mitral valve has normal leaflets. There is no mitral valve stenosis. There is no mitral valve regurgitation. Tricuspid Valve The tricuspid valve leaflets are normal. There is no significant tricuspid valve stenosis. There is trace tricuspid valve regurgitation. There is borderline pulmonary hypertension, estimated right ventricle systolic pressure is 39 mmHg. Pericardium/Pleural There is no pericardial effusion. Inferior Vena Cava Dilated inferior vena cava with <50% collapse upon inspiration consistent with elevated right atrial pressure. Aorta The aortic measurements are indexed to age and body surface area. 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 Wall Motion Scoring Wall Motion Scoring Index: 1.00 Left Ventricular Outflow Tract Name Value Normal LVOT 2D LVOT Diameter 2.2 cm LVOT Doppler LVOT Peak Velocity 1.1 m/s LVOT Peak Gradient 5 mmHg LVOT Mean Gradient 3 mmHg LVOT VTI 27 cm LVOT VTI/AV VTI Ratio 0.7 LVOT Stroke Volume 101 ml LVOT Stroke Index 60.74 ml/m2 Pulmonic Valve Name Value Normal RVOT Doppler RVOT Peak Velocity 61 cm/s RVOT Peak Gradient 1 mmHg RVOT Mean Gradient 1 mmHg RVOT VTI 15 cm PV Doppler PV Peak Velocity 0.84 m/s PV Peak Gradient 3 mmHg PV Mean Gradient 2 mmHg PV VTI 22 cm PV Regurgitation Doppler MD Peak Gradient 3 mmHg MD Peak End Diastolic Velocity 87 cm/s Mitral Valve Name Value Normal MV Doppler MV Peak Velocity 1.35 m/s MV Peak Gradient 7 mmHg MV Mean Gradient 3 mmHg MV VTI 36 cm MV Decel Meriwether 586 cm/s2 MV PHT 66 ms MV Area (PHT) 3.4 cm2 4.0-5.0 MV Area (Cont Eq VTI) 2.8 cm2 MV Area Index (Cont Eq VTI) 1.69 cm2/m2 MV DVI 1.33 MV Diastolic Function MV E Peak Velocity 1.32 m/s MV A Peak Velocity 1.30 m/s MV E/A 1.0 MV Decel Time 226 ms MV Annular TDI (more content not included)... Normal [facility] Echo CompleteOrdered By: Polina Torres on 11-28-2023 Aortic valve area 2.[address] [facility] Work Phone: AV mean gradient 5.54383 mmHg [facility] Work Phone: AV peak gradient 10.7809 mmHg [facility] Work Phone: EF [phone] % [facility] Work Phone: [employer] Work Phone: Echo Completeon 11-28-2023 Patient Info Name: CHRISTINE MAYS Age: 78 years : 1945 Gender: Female Ht: 152 cm Wt: 64 kg BSA: 1.67 m2 HR: 70 bpm BP: 146 / 68 mmHg Heart Rhythm: Sinus Rhythm Technical Quality: Fair Exam Date: 11/28/2023 12:36 PM Patient Status: Inpatient Director Of Occupational Therapy: Natalie Martin RDCS Exam Type: ECHOCARDIOGRAM COMPLETE Study Info Indications R55 - Syncope and collapse Referring Physician: LUIS M Rooney; [id number] BMI: 27.54 kg/m2 Summary 1. Normal LV chamber size. There is mild concentric left ventricular hypertrophy. Systolic function is hyperdynamic with no regional wall motion abnormalities. Estimated ejection fraction of >70%. 2. The left ventricular diastolic function is grade II diastolic dysfunction. 3. Right ventricular size and systolic function are normal. 4. There is no hemodynamically significant valve disease. 5. There is borderline pulmonary hypertension, estimated right ventricle systolic pressure is 39 mmHg. History/Risk Factors Hypertension: Yes Tobacco Use: Former Family History: Coronary Artery Disease Procedure(s): Complete two-dimensional, color flow and Doppler transthoracic echocardiogram is performed. Left Ventricle Normal LV chamber size. There is mild concentric left ventricular hypertrophy. Systolic function is hyperdynamic with no regional wall motion abnormalities. Estimated ejection fraction of >70%. The left ventricular diastolic function is grade II diastolic dysfunction. Right Ventricle Right ventricular size and systolic function are normal. Left Atria Left atrial chamber is mildly enlarged with a left atrial volume index of 41 ml/m2 by BP MOD. Right Atria Right atrial chamber dimension is normal. Aortic Valve The aortic valve is trileaflet. There is mild aortic valve sclerosis. There is no aortic valve stenosis. There is no aortic valve regurgitation. Pulmonic Valve The pulmonic valve is not well visualized. There is no pulmonic valve stenosis. There is mild pulmonic regurgitation. Mitral Valve The mitral valve has normal leaflets. There is no mitral valve stenosis. There is no mitral valve regurgitation. Tricuspid Valve The tricuspid valve leaflets are normal. There is no significant tricuspid valve stenosis. There is trace tricuspid valve regurgitation. There is borderline pulmonary hypertension, estimated right ventricle systolic pressure is 39 mmHg. Pericardium/Pleural There is no pericardial effusion. Inferior Vena Cava Dilated inferior vena cava with <50% collapse upon inspiration consistent with elevated right atrial pressure. Aorta The aortic measurements are indexed to age and body surface area. 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 Wall Motion Scoring Wall Motion Scoring Index: 1.00 Left Ventricular Outflow Tract Name Value Normal LVOT 2D LVOT Diameter 2.2 cm LVOT Doppler LVOT Peak Velocity 1.1 m/s LVOT Peak Gradient 5 mmHg LVOT Mean Gradient 3 mmHg LVOT VTI 27 cm LVOT VTI/AV VTI Ratio 0.7 LVOT Stroke Volume 101 ml LVOT Stroke Index 60.74 ml/m2 Pulmonic Valve Name Value Normal RVOT Doppler RVOT Peak Velocity 61 cm/s RVOT Peak Gradient 1 mmHg RVOT Mean Gradient 1 mmHg RVOT VTI 15 cm PV Doppler PV Peak Velocity 0.84 m/s PV Peak Gradient 3 mmHg PV Mean Gradient 2 mmHg PV VTI 22 cm PV Regurgitation Doppler MD Peak Gradient 3 mmHg MD Peak End D (more content not included)... FUJI SYNAPSE Abdias Carranza MD - 11/28/2023 Patient Info Name: CHRISTINE MAYS Age: 78 years : 1945 Gender: Female Ht: 152 cm Wt: 64 kg BSA: 1.67 m2 HR: 70 bpm BP: 146 / 68 mmHg Heart Rhythm: Sinus Rhythm Technical Quality: Fair Exam Date: 11/28/2023 12:36 PM Patient Status: Inpatient Director Of Occupational Therapy: Natalie Martin [facility] Exam Type: ECHOCARDIOGRAM COMPLETE Study Info Indications R55 - Syncope and collapse Referring Physician: LUIS M Rooney; [id number] BMI: 27.54 kg/m2 Summary 1. Normal LV chamber size. There is mild concentric left ventricular hypertrophy. Systolic function is hyperdynamic with no regional wall motion abnormalities. Estimated ejection fraction of >70%. 2. The left ventricular diastolic function is grade II diastolic dysfunction. 3. Right ventricular size and systolic function are normal. 4. There is no hemodynamically significant valve disease. 5. There is borderline pulmonary hypertension, estimated right ventricle systolic pressure is 39 mmHg. History/Risk Factors Hypertension: Yes Tobacco Use: Former Family History: Coronary Artery Disease Procedure(s): Complete two-dimensional, color flow and Doppler transthoracic echocardiogram is performed. Left Ventricle Normal LV chamber size. There is mild concentric left ventricular hypertrophy. Systolic function is hyperdynamic with no regional wall motion abnormalities. Estimated ejection fraction of >70%. The left ventricular diastolic function is grade II diastolic dysfunction. Right Ventricle Right ventricular size and systolic function are normal. Left Atria Left atrial chamber is mildly enlarged with a left atrial volume index of 41 ml/m2 by BP MOD. Right Atria Right atrial chamber dimension is normal. Aortic Valve The aortic valve is trileaflet. There is mild aortic valve sclerosis. There is no aortic valve stenosis. There is no aortic valve regurgitation. Pulmonic Valve The pulmonic valve is not well visualized. There is no pulmonic valve stenosis. There is mild pulmonic regurgitation. Mitral Valve The mitral valve has normal leaflets. There is no mitral valve stenosis. There is no mitral valve regurgitation. Tricuspid Valve The tricuspid valve leaflets are normal. There is no significant tricuspid valve stenosis. There is trace tricuspid valve regurgitation. There is borderline pulmonary hypertension, estimated right ventricle systolic pressure is 39 mmHg. Pericardium/Pleural There is no pericardial effusion. Inferior Vena Cava Dilated inferior vena cava with <50% collapse upon inspiration consistent with elevated right atrial pressure. Aorta The aortic measurements are indexed to age and body surface area. 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 Wall Motion Scoring Wall Motion Scoring Index: 1.00 Left Ventricular Outflow Tract Name Value Normal LVOT 2D LVOT Diameter 2.2 cm LVOT Doppler LVOT Peak Velocity 1.1 m/s LVOT Peak Gradient 5 mmHg LVOT Mean Gradient 3 mmHg LVOT VTI 27 cm LVOT VTI/AV VTI Ratio 0.7 LVOT Stroke Volume 101 ml LVOT Stroke Index 60.74 ml/m2 Pulmonic Valve Name Value Normal RVOT Doppler RVOT Peak Velocity 61 cm/s RVOT Peak Gradient 1 mmHg RVOT Mean Gradient 1 mmHg RVOT VTI 15 cm PV Doppler PV Peak Velocity 0.84 m/s PV Peak Gradient 3 mmHg PV Mean Gradient 2 mmHg PV VTI 22 cm PV Regurgitation Doppler MD Peak Gradient 3 mmHg MD Peak End Diastolic Velocity 87 cm/s Mitral Valve Name Value Normal MV Doppler MV Peak Velocity 1.35 m/s MV Peak Gradient 7 mmHg MV Mean Gradient 3 mmHg MV VTI 36 cm MV Decel Meriwether 586 cm/s2 MV PHT 66 ms MV Area (PHT) 3.4 cm2 4.0-5.0 MV Area (Cont Eq VTI) 2.8 cm2 MV Area Index (Cont Eq VTI) 1.69 cm2/m2 MV DVI 1.33 MV Diastolic Function MV E Peak Velocity 1.32 m/s (more content not included)... [facility] Glucose (Bld) [Mass/Vol]on 0 11-28-2023 Glucose [Mass/Vol] 139 mg/dL High 65 - 99 mg/dL [facility] Interpretation and review of laboratory results Abnormal [facility] HEMOGLOBIN AND HEMATOCRITon 11-28-2023 Hematocrit (Bld) [Volume fraction] 27.1 % Low 36.0-46.0 [facility] Comment on above: Performed By: #### [id number] #### LAB [address] [address] Tanvir Haile M.D. [id number] Hemoglobin (Bld) [Mass/Vol] 9.0 g/dL Low 12.0-16.0 [facility] Comment on above: Performed By: #### [id number] #### LAB [address] [address] Tanvir Haile M.D. [id number] Hemoglobin and Hematocrit pa hermes (Bld)on 11-28-2023 Hematocrit (Bld) [Volume fraction] 27.1 % Low 36.0 - 46.0 % [facility] Hemoglobin (Bld) [Mass/Vol] 9.0 g/dL Low 12.0 - 16.0 g/dL [facility] Interpretation and review of laboratory results Abnormal [facility] POC GLUCOSE - [place] 024 Glucose [Mass/Vol] 139 mg/dL High 65-99 [facility] Urine Aerobic CultureOrdered By: Emmie Méndez on 11-28-2023 Bacteria identified Aer cx Nom (Unsp spec) No Growth (<1,000 CFU/mL) [place] BASIC METABOLIC PANELon 05-0 Anion gap [Moles/Vol] 14 mmol/L Normal 10-20 [facility] Comment on above: Order Comment: Injur y/Trauma or Illness?:Injury/Trauma How long have you had these symptoms (acute/chronic)?:Acute Reason for exam?:fall, head trauma Type of Exam?:Initial Mechanism of injury?:mechanical fall from standing. Hit head on ground and has neck pain. C-Collar in place on arrival. Pt also complains of severe left shoulder pain from fall. Performed By: #### [id number] #### LAB [address] [address] Tanvir Haile M.D. [id number] Calcium [Mass/Vol] 8.7 mg/dL Normal 8.4-10.2 [facility] Comment on above: Order Comment: Injur y/Trauma or Illness?:Injury/Trauma How long have you had these symptoms (acute/chronic)?:Acute Reason for exam?:fall, head trauma Type of Exam?:Initial Mechanism of injury?:mechanical fall from standing. Hit head on ground and has neck pain. C-Collar in place on arrival. Pt also complains of severe left shoulder pain from fall. Performed By: #### [id number] #### LAB [address] [address] Tanvir Haile M.D. [id number] Chloride [Moles/Vol] 99 mmol/L Normal 98-108 [facility] Comment on above: Order Comment: Injur y/Trauma or Illness?:Injury/Trauma How long have you had these symptoms (acute/chronic)?:Acute Reason for exam?:fall, head trauma Type of Exam?:Initial Mechanism of injury?:mechanical fall from standing. Hit head on ground and has neck pain. C-Collar in place on arrival. Pt also complains of severe left shoulder pain from fall. Performed By: #### [id number] #### LAB [address] [address] Tanvir Haile M.D. [id number] Creatinine [Mass/Vol] 0.70 mg/dL Normal 0.60-1.10 [facility] Comment on above: Order Comment: Injur y/Trauma or Illness?:Injury/Trauma How long have you had these symptoms (acute/chronic)?:Acute Reason for exam?:fall, head trauma Type of Exam?:Initial Mechanism of injury?:mechanical fall from standing. Hit head on ground and has neck pain. C-Collar in place on arrival. Pt also complains of severe left shoulder pain from fall. Performed By: #### [id number] #### LAB [address] [address] Tanvir Haile M.D. [id number] EGFR 88 mL/min/1.73 m2 Normal >=60 [facility] Comment on above: Order Comment: Injur y/Trauma or Illness?:Injury/Trauma How long have you had these symptoms (acute/chronic)?:Acute Reason for exam?:fall, head trauma Type of Exam?:Initial Mechanism of injury?:mechanical fall from standing. Hit head on ground and has neck pain. C-Collar in place on arrival. Pt also complains of severe left shoulder pain from fall. Result Comment: Gayle mated GFR was calculated using the 2020 CKD-EPI creatinine equation. Performed By: #### [id number] #### LAB [address] [address] Tanvir Haile M.D. [id number] Glucose [Mass/Vol] 124 mg/dL High 65-99 [facility] Comment on above: Order Comment: Injur y/Trauma or Illness?:Injury/Trauma How long have you had these symptoms (acute/chronic)?:Acute Reason for exam?:fall, head trauma Type of Exam?:Initial Mechanism of injury?:mechanical fall from standing. Hit head on ground and has neck pain. C-Collar in place on arrival. Pt also complains of severe left shoulder pain from fall. Performed By: #### [id number] #### LAB [address] [address] Tanvir Haile M.D. [id number] HCO3 (Bld) [Moles/Vol] 25 mmol/L Normal 21-32 [facility] Comment on above: Order Comment: Injur y/Trauma or Illness?:Injury/Trauma How long have you had these symptoms (acute/chronic)?:Acute Reason for exam?:fall, head trauma Type of Exam?:Initial Mechanism of injury?:mechanical fall from standing. Hit head on ground and has neck pain. C-Collar in place on arrival. Pt also complains of severe left shoulder pain from fall. Performed By: #### 4 [id number] #### LAB [address] [address] Tanvir Haile M.D. [id number] Potassium [Moles/Vol] 4.0 mmol/L Normal 3.5-5.1 [facility] Comment on above: Order Comment: Injur y/Trauma or Illness?:Injury/Trauma How long have you had these symptoms (acute/chronic)?:Acute Reason for exam?:fall, head trauma Type of Exam?:Initial Mechanism of injury?:mechanical fall from standing. Hit head on ground and has neck pain. C-Collar in place on arrival. Pt also complains of severe left shoulder pain from fall. Performed By: #### 4 [id number] ####[facility] LAB [address] [address] Tanvir Haile M.D. [id number] Sodium [Moles/Vol] 134 mmol/L Low 135-145 [facility] Comment on above: Order Comment: Injur y/Trauma or Illness?:Injury/Trauma How long have you had these symptoms (acute/chronic)?:Acute Reason for exam?:fall, head trauma Type of Exam?:Initial Mechanism of injury?:mechanical fall from standing. Hit head on ground and has neck pain. C-Collar in place on arrival. Pt also complains of severe left shoulder pain from fall. Performed By: #### 4 [id number] ####[facility] LAB [address] [address] Tanvir Haile M.D. [id number] Urea nitrogen [Mass/Vol] 20 mg/dL Normal 8-25 [facility] Comment on above: Order Comment: Injur y/Trauma or Illness?:Injury/Trauma How long have you had these symptoms (acute/chronic)?:Acute Reason for exam?:fall, head trauma Type of Exam?:Initial Mechanism of injury?:mechanical fall from standing. Hit head on ground and has neck pain. C-Collar in place on arrival. Pt also complains of severe left shoulder pain from fall. Performed By: #### [id number] #### LAB [address], [place] [address] Tanvir Haile M.D. [id number] Urea nitrogen/Creatinine [Mass ratio] 28.6 mg/mg High 10.0-20.0 [facility] Comment on above: Order Comment: Injur y/Trauma or Illness?:Injury/Trauma How long have you had these symptoms (acute/chronic)?:Acute Reason for exam?:fall, head trauma Type of Exam?:Initial Mechanism of injury?:mechanical fall from standing. Hit head on ground and has neck pain. C-Collar in place on arrival. Pt also complains of severe left shoulder pain from fall. Performed By: #### 4 [id number] #### LAB [address], [place] [address] Tanvir Haile M.D. [id number] Basic metabolic 2000 panelon 11-27-2023 Anion gap [Moles/Vol] 14 mmol/L 10 - 20 mmol/L [facility] Calcium [Mass/Vol] 8.7 mg/dL 8.4 - 10. 2 mg/dL [facility] Chloride [Moles/Vol] 99 mmol/L 98 - 108 mmol/L [facility] Creatinine [Mass/Vol] 0.70 mg/dL 0.60 - 1.10 mg/dL [facility] GFR/1.73 sq M.predicted CKD-EPI (S/P/Bld) [Vol rate/Area] 88 - PINF [facility] Comment on above: Estimated GFR was ca lculated using the 2020 CKD-EPI creatinine equation. Glucose [Mass/Vol] 124 mg/dL High 65 - 99 mg/dL [facility] HCO3 [Moles/Vol] 25 mmol/L 21 - 32 mmol/L [facility] Interpretation and review of laboratory results Abnormal [facility] Potassium [Moles/Vol] 4.0 mmol/L 3.5 - 5.1 mmol/L [facility] Sodium [Moles/Vol] 134 mmol/L Low 135 - 145 mmol/L [facility] Urea nitrogen [Mass/Vol] 20 mg/dL 8 - 25 mg/dL [facility] Urea nitrogen/Creatinine [Mass ratio] 28.6 mg/mg High 10.0 - 20.0 [facility] Laborator y Services has implemented the eGFR calculation approach that does not have a coefficient for race that conforms to the NKF-ASN Task Force Recommendations. [facility] HEMOGLOBIN AND HEMATOCRITon 11-27-2023 Hematocrit (Bld) [Volume fraction] 29.5 % Low 36.0-46.0 [facility] Comment on above: Performed By: #### [id number] #### LAB [address] [address] Tanvir Haile M.D. [id number] Hemoglobin (Bld) [Mass/Vol] 9.9 g/dL Low 12.0-16.0 [facility] Comment on above: Performed By: #### 4 [id number] #### LAB [address] [address] Tanvir Haile M.D. [id number] Hematocrit (Bld) [Volume fraction] 29.5 % Low 36.0-46.0 [facility] Comment on above: Performed By: #### 4 [id number] #### LAB [address] [address] Tanvir Haile M.D. [id number] Hemoglobin (Bld) [Mass/Vol] 9.6 g/dL Low 12.0-16.0 [facility] Comment on above: Performed By: #### 4 6909 #### LAB [address] [address] Tanvir Haile M.D. [id number] Hemoglobin and Hematocrit pa hermes (Bld)on 11-27-2023 Hematocrit (Bld) [Volume fraction] 29.5 % Low 36.0 - 46.0 % [facility] Hemoglobin (Bld) [Mass/Vol] 9.9 g/dL Low 12.0 - 16.0 g/dL [facility] Interpretation and review of laboratory results Abnormal [facility] Hematocrit (Bld) [Volume fraction] 29.5 % Low 36.0 - 46.0 % [facility] Hemoglobin (Bld) [Mass/Vol] 9.6 g/dL Low 12.0 - 16.0 g/dL [facility] Interpretation and review of laboratory results Abnormal [facility] BASIC METABOLIC PANELon 05-0 Anion gap [Moles/Vol] 15 mmol/L Normal 10-20 [facility] Comment on above: Order Comment: Injur y/Trauma or Illness?:Injury/Trauma How long have you had these symptoms (acute/chronic)?:Acute Reason for exam?:neck pain Type of Exam?:Initial Mechanism of injury?:mechanical fall from standing. Hit head on ground and has neck pain. C-Collar in place on arrival. Pt also complains of severe left shoulder pain from fall. Performed By: #### 4 [id number] #### LAB [address] [address] Tanvir Haile M.D. [id number] Calcium [Mass/Vol] 8.7 mg/dL Normal 8.4-10.2 [facility] Comment on above: Order Comment: Injur y/Trauma or Illness?:Injury/Trauma How long have you had these symptoms (acute/chronic)?:Acute Reason for exam?:neck pain Type of Exam?:Initial Mechanism of injury?:mechanical fall from standing. Hit head on ground and has neck pain. C-Collar in place on arrival. Pt also complains of severe left shoulder pain from fall. Performed By: #### 4 [id number] #### LAB [address] [address] Tanvir Haile M.D. [id number] Chloride [Moles/Vol] 99 mmol/L Normal 98-108 [facility] Comment on above: Order Comment: Injur y/Trauma or Illness?:Injury/Trauma How long have you had these symptoms (acute/chronic)?:Acute Reason for exam?:neck pain Type of Exam?:Initial Mechanism of injury?:mechanical fall from standing. Hit head on ground and has neck pain. C-Collar in place on arrival. Pt also complains of severe left shoulder pain from fall. Performed By: #### 4 [id number] #### LAB [address] [address] Tanvir Haile M.D. [id number] Creatinine [Mass/Vol] 0.64 mg/dL Normal 0.60-1.10 [facility] Comment on above: Order Comment: Injur y/Trauma or Illness?:Injury/Trauma How long have you had these symptoms (acute/chronic)?:Acute Reason for exam?:neck pain Type of Exam?:Initial Mechanism of injury?:mechanical fall from standing. Hit head on ground and has neck pain. C-Collar in place on arrival. Pt also complains of severe left shoulder pain from fall. Performed By: #### 4 6193 #### LAB [address] [address] Tanvir Haile M.D. [id number] EGFR 89 mL/min/1.73 m2 Normal >=60 [facility] Comment on above: Order Comment: Injur y/Trauma or Illness?:Injury/Trauma How long have you had these symptoms (acute/chronic)?:Acute Reason for exam?:neck pain Type of Exam?:Initial Mechanism of injury?:mechanical fall from standing. Hit head on ground and has neck pain. C-Collar in place on arrival. Pt also complains of severe left shoulder pain from fall. Result Comment: Gayle mated GFR was calculated using the 2020 CKD-EPI creatinine equation. Performed By: #### 4 [id number] ####[facility] LAB [address] [id number] Tanvir Haile M.D. [id number] Glucose [Mass/Vol] 127 mg/dL High 65-99 [facility] Comment on above: Order Comment: Injur y/Trauma or Illness?:Injury/Trauma How long have you had these symptoms (acute/chronic)?:Acute Reason for exam?:neck pain Type of Exam?:Initial Mechanism of injury?:mechanical fall from standing. Hit head on ground and has neck pain. C-Collar in place on arrival. Pt also complains of severe left shoulder pain from fall. Performed By: #### 4 6110 #### LAB [address] [id number] Tanvir Haile M.D. [id number] HCO3 (Bld) [Moles/Vol] 24 mmol/L Normal 21-32 [facility] Comment on above: Order Comment: Injur y/Trauma or Illness?:Injury/Trauma How long have you had these symptoms (acute/chronic)?:Acute Reason for exam?:neck pain Type of Exam?:Initial Mechanism of injury?:mechanical fall from standing. Hit head on ground and has neck pain. C-Collar in place on arrival. Pt also complains of severe left shoulder pain from fall. Performed By: #### 4 6124 #### LAB [address] [address] Tanvir Haile M.D. [id number] Potassium [Moles/Vol] 3.9 mmol/L Normal 3.5-5.1 [facility] Comment on above: Order Comment: Injur y/Trauma or Illness?:Injury/Trauma How long have you had these symptoms (acute/chronic)?:Acute Reason for exam?:neck pain Type of Exam?:Initial Mechanism of injury?:mechanical fall from standing. Hit head on ground and has neck pain. C-Collar in place on arrival. Pt also complains of severe left shoulder pain from fall. Performed By: #### 4 [id number] #### LAB [address] [address] Tanvir Haile M.D. [id number] Sodium [Moles/Vol] 134 mmol/L Low 135-145 [facility] Comment on above: Order Comment: Injur y/Trauma or Illness?:Injury/Trauma How long have you had these symptoms (acute/chronic)?:Acute Reason for exam?:neck pain Type of Exam?:Initial Mechanism of injury?:mechanical fall from standing. Hit head on ground and has neck pain. C-Collar in place on arrival. Pt also complains of severe left shoulder pain from fall. Performed By: #### 4 6124 #### LAB [address] [address] Tanvir Haile M.D. [id number] Urea nitrogen [Mass/Vol] 19 mg/dL Normal 8-25 [facility] Comment on above: Order Comment: Injur y/Trauma or Illness?:Injury/Trauma How long have you had these symptoms (acute/chronic)?:Acute Reason for exam?:neck pain Type of Exam?:Initial Mechanism of injury?:mechanical fall from standing. Hit head on ground and has neck pain. C-Collar in place on arrival. Pt also complains of severe left shoulder pain from fall. Performed By: #### 4 6124 #### LAB [address], [place] [address] Tanvir Haile M.D. [id number] Urea nitrogen/Creatinine [Mass ratio] 29.7 mg/mg High 10.0-20.0 [facility] Comment on above: Order Comment: Injur y/Trauma or Illness?:Injury/Trauma How long have you had these symptoms (acute/chronic)?:Acute Reason for exam?:neck pain Type of Exam?:Initial Mechanism of injury?:mechanical fall from standing. Hit head on ground and has neck pain. C-Collar in place on arrival. Pt also complains of severe left shoulder pain from fall. Performed By: #### 4 6124 #### LAB [address], [place] [address] Tanvir Haile M.D. [id number] Basic metabolic 2000 panelon 11-26-2023 Anion gap [Moles/Vol] 15 mmol/L 10 - 20 mmol/L [facility] Calcium [Mass/Vol] 8.7 mg/dL 8.4 - 10. 2 mg/dL [facility] Chloride [Moles/Vol] 99 mmol/L 98 - 108 mmol/L [facility] Creatinine [Mass/Vol] 0.64 mg/dL 0.60 - 1.10 mg/dL [facility] GFR/1.73 sq M.predicted CKD-EPI (S/P/Bld) [Vol rate/Area] 89 - PINF [facility] Comment on above: Estimated GFR was ca lculated using the 2020 CKD-EPI creatinine equation. Glucose [Mass/Vol] 127 mg/dL High 65 - 99 mg/dL [facility] HCO3 [Moles/Vol] 24 mmol/L 21 - 32 mmol/L [facility] Interpretation and review of laboratory results Abnormal [facility] Potassium [Moles/Vol] 3.9 mmol/L 3.5 - 5.1 mmol/L [facility] Sodium [Moles/Vol] 134 mmol/L Low 135 - 145 mmol/L [facility] Urea nitrogen [Mass/Vol] 19 mg/dL 8 - 25 mg/dL [facility] Urea nitrogen/Creatinine [Mass ratio] 29.7 mg/mg High 10.0 - 20.0 [facility] Laborator y Services has implemented the eGFR calculation approach that does not have a coefficient for race that conforms to the NKF-ASN Task Force Recommendations. [facility] CBCon 11-26-2023 AUTO NRBC 0.0 % Normal [facility] Comment on above: Performed By: #### 4 [id number] #### LAB [address] [address] Tanvir Haile M.D. [id number] AUTO NRBC ABS COUNT 0.00 K/mcL Normal 0.00-0.00 [facility] Comment on above: Performed By: #### 4 [id number] ####[facility] LAB [address] [address] Tanvir Haile M.D. [id number] Erythrocyte distribution width (RBC) [Ratio] 12.8 % Normal 11.6-14.8 [facility] Comment on above: Performed By: #### 4 [id number] ####[facility] [address] [address] Tanvir Haile M.D. [id number] Hematocrit (Bld) [Volume fraction] 32.1 % Low 36.0-46.0 [facility] Comment on above: Performed By: #### 4 [id number] #### LAB [address] [address] Tanvir Haile M.D. [id number] Hemoglobin (Bld) [Mass/Vol] 10.7 g/dL Low 12.0-16.0 [facility] Comment on above: Performed By: #### 4 [id number] #### LAB [address] [address] Tanvir Haile M.D. [id number] MCH (RBC) [Entitic mass] 32.0 pg Normal 26.0-34.0 [facility] Comment on above: Performed By: #### 4 [id number] #### LAB [address] [address] Tanvir Haile M.D. [id number] MCV (RBC) [Entitic vol] 96.1 fL Normal 80.0-100.0 [facility] Comment on above: Performed By: #### 4 [id number] #### LAB [address] [address] Tanvir Halie M.D. [id number] MEAN CORPUSCULAR HEMOGLOBIN CONC 33.3 g/dL Normal 31.0-37.0 [facility] Comment on above: Performed By: #### 4 [id number] #### LAB [address] [address] Tanvir Haile M.D. [id number] Platelet mean volume (Bld) [Entitic vol] 8.9 fL Low 9.4-12.4 [facility] Comment on above: Performed By: #### 4 [id number] ####[facility] LAB [address] [address] Tanvir Haile M.D. [id number] Platelets (Bld) [#/Vol] 218 10*3/uL Normal 150-400 [facility] Comment on above: Performed By: #### 4 [id number] #### LAB [address] [address] Tanvir Haile M.D. [id number] RBC (Bld) [#/Vol] 3.34 10*6/uL Low 4.00-5.20 [facility] Comment on above: Performed By: #### 4 [id number] #### LAB [address] [address] Tanvir Haile M.D. [id number] WBC (Bld) [#/Vol] 6.89 10*3/uL Normal 4.50-11.00 [facility] Comment on above: Performed By: #### 4 [id number] #### LAB [address] [address] Tanvir Haile M.D. [id number] CBC panel Auto (Bld)on 11-25 Erythrocyte distribution width (RBC) [Entitic vol] 12.8 % 11.6 - 14.8 % [facility] Hematocrit (Bld) [Volume fraction] 32.1 % Low 36.0 - 46.0 % [facility] Hemoglobin (Bld) [Mass/Vol] 10.7 g/dL Low 12.0 - 16.0 g/dL [facility] Interpretation and review of laboratory results Abnormal [facility] MCH (RBC) [Entitic mass] 32.0 pg 26.0 - 34.0 pg [facility] MCHC (RBC) [Mass/Vol] 33.3 g/dL 31.0 - 37.0 g/dL [facility] MCV (RBC) [Entitic vol] 96.1 fL 80.0 - 100.0 fL [facility] Nucleated RBC (Bld) [#/Vol] 0.00 10*3/uL [facility] Nucleated RBC/100 WBC (Bld) [Ratio] 0.0 % [facility] Platelet mean volume (Bld) [Entitic vol] 8.9 fL Low 9.4 - 12.4 fL [facility] Platelets (Bld) [#/Vol] 218 10*3/uL [facility] RBC (Bld) [#/Vol] 3.34 10*6/uL Low [facility] WBC (Bld) [#/Vol] 6.89 10*3/uL [facility] eah [facility] CONSULTon 11-26-2023 CONSULT ATTENDING PHYSICIAN NAYELY MAE MD PRIMARY CARE PHYSICIAN EMMANUEL RICKETTS MD ADMITTING PHYSICIAN NAYELY MAE MD CONSULTING PHYSICIAN NAYELY MAE MD REASON FOR CONSULTATION Left proximal humerus fracture. HISTORY Christine is an 78-year-old patient with a mechanical fall yesterday sustaining a proximal humerus fracture, admitted to the trauma service. 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 She does not use a cane, does not use a walker. PAST MEDICAL HISTORY Anxiety, hypothyroidism, migraine headaches, spinal stenosis. SURGERIES She had breast reduction surgery, cholecystectomy, foot surgery, hysterectomy, pilonidal cyst, left hand trigger release. SOCIAL HISTORY She is a former smoker. Does not smoke currently. Drinks on a social basis. FAMILY HISTORY Heart disease. ALLERGIES Nickel and codeine. MEDICATIONS Include Tylenol, Tenormin, Neurontin, Synthroid, Ativan, Mobic, Zanaflex, Ultram, Desyrel, Maxzide. REVIEW OF SYSTEMS Left shoulder pain. X-ray and CAT scan of the left shoulder were reviewed. The x-ray and CAT scan show a surgical neck fracture with no evidence of humeral head involvement and unfortunately there appears to be 75% anterior displacement of the humeral shaft in comparison to the head anteriorly. PHYSICAL EXAM General: The patient is awake, alert, and oriented x3. Musculoskeletal: Right upper extremity atraumatic. Lower extremities atraumatic. Left upper extremity neurologically intact. 2+ pulses. Full range of motion throughout the left hand, wrist, and elbow. Ecchymosis and edema at the shoulder. IMPRESSION Left proximal humerus fracture. PLAN As an 78-year-old caregiver of her who is basically wheelchair-bound, we talked about surgical versus nonsurgical intervention; however, with the severity of the displacement of the humeral head and neck, we are going to proceed forward with open reduction and internal fixation. All risks and complications were discussed. D 11/26/2023 10:51 [id number] 11/26/2023 11:36 MCB/MODL AUTHENTICATED BY AVERY DAS, ON 11/26/2023 13:14:44 Normal [facility] CT Shoulder - left WO jael shah 11-26-2023 1. Acute comminuted impacted and displaced proximal humeral fracture involving primarily the surgical neck with significant apex anterior angulation and anterior displacement of the distal shaft proximal head fragment components posterior impaction and overlap. 2. Background osseous osteoporosis. 3. No acute subluxation dislocation joints. 4. Chondrocalcinosis of AC joint and glenoid labrum as well as rotator cuff tendons. See comments above. Workstation ID: [id number] Vpon EXAMINATION: CT SHOULDER LEFT WITHOUT CONTRAST HISTORY: ORDERING SYSTEM PROVIDED HISTORY: Shoulder trauma, fracture of humerus or scapula, TECHNOLOGIST PROVIDED HISTORY: Injury/Trauma Reason for exam: fall, left shoulder pain, prev xray done with proximal humerus fx Encounter Type: Subsequent/Follow-up Mechanism of injury: fall ORDERING SYSTEM PROVIDED DIAGNOSIS CODES: S42.215A Closed nondisplaced fracture of surgical neck of left humerus, unspecified fracture morphology, initial encounter Z04.3 Encounter for post fall examination E87.6 Hypokalemia COMPARISON: None FINDINGS: There is an acute comminuted, displaced and angulated fracture of the left proximal humerus at the surgical neck region. There is significant apex anterior angulation was anterior displacement of the distal shaft proximal humeral head portion with posterior fashion overlap of fragments. The glenohumeral joint is maintained without acute subluxation dislocation. There is moderate degenerative osteoarthritic narrowing of the AC joint with chondrocalcinosis of capsular soft tissues. There is calcification or calcinosis involving the left shoulder rotator cuff tendons distally at the supraspinatus and infraspinatus region with suspected chronic calcific tendinosis of both tendons. Likewise there is chondrocalcinosis of the glenohumeral joint and labrum. Changes could be from CPPD arthropathy or age-related given patient's stated age. There is underlying osteoporosis. No lytic or blastic lesion. No other fractures. No significant glenohumeral joint effusion. The imaged left upper chest wall ribs are maintained. No left apical pneumothorax acute left lung parenchymal findings. [facility] Casey Feliciano, DO - 11/26/2023 EXAMINATION: CT SHOULDER LEFT WITHOUT CONTRAST HISTORY: ORDERING SYSTEM PROVIDED HISTORY: Shoulder trauma, fracture of humerus or scapula, TECHNOLOGIST PROVIDED HISTORY: Injury/Trauma Reason for exam: fall, left shoulder pain, prev xray done with proximal humerus fx Encounter Type: Subsequent/Follow-up Mechanism of injury: fall ORDERING SYSTEM PROVIDED DIAGNOSIS CODES: S42.215A Closed nondisplaced fracture of surgical neck of left humerus, unspecified fracture morphology, initial encounter Z04.3 Encounter for post fall examination E87.6 Hypokalemia COMPARISON: None FINDINGS: There is an acute comminuted, displaced and angulated fracture of the left proximal humerus at the surgical neck region. There is significant apex anterior angulation was anterior displacement of the distal shaft proximal humeral head portion with posterior fashion overlap of fragments. The glenohumeral joint is maintained without acute subluxation dislocation. There is moderate degenerative osteoarthritic narrowing of the AC joint with chondrocalcinosis of capsular soft tissues. There is calcification or calcinosis involving the left shoulder rotator cuff tendons distally at the supraspinatus and infraspinatus region with suspected chronic calcific tendinosis of both tendons. Likewise there is chondrocalcinosis of the glenohumeral joint and labrum. Changes could be from CPPD arthropathy or age-related given patient's stated age. There is underlying osteoporosis. No lytic or blastic lesion. No other fractures. No significant glenohumeral joint effusion. The imaged left upper chest wall ribs are maintained. No left apical pneumothorax acute left lung parenchymal findings. IMPRESSION: 1. Acute comminuted impacted and displaced proximal humeral fracture involving primarily the surgical neck with significant apex anterior angulation and anterior displacement of the distal shaft proximal head fragment components posterior impaction and overlap. 2. Background osseous osteoporosis. 3. No acute subluxation dislocation joints. 4. Chondrocalcinosis of AC joint and glenoid labrum as well as rotator cuff tendons. See comments above. Workstation ID: [id number] [facility] CT Shoulder - left WO contra stOrdered By: Casey Feliciano on 11-26-2023 [facility] Work Phone: IMMUNOFIXATION, SERUMon IMMUNOFIXATION, SERUM Abnormal Abnormal Normal [facility] Comment on above: Performed By: #### 4 6015 ####[facility] [address] [place], [place] [id number] Jose Erwin M.D. [id number] SIFIX INTERPRETATION Indistinct lambda band without corresponding heavy chain. Recommend repeat in 3-6 months and serum free light chains if clinically indicated. Reviewed by Pathologist: Daja Campuzano MD. Normal [facility] Comment on above: Performed By: #### 4 6015 ####[facility] [address] [place], [place] [id number] Jose Erwin M.D. [id number] IMMUNOGLOBULIN FREE LT CHAIN S, BLOODon 11-26-2023 IG KAPPA FREE LIGHT CHAIN 15.76 mg/L Normal 3.30-19.40 [facility] Comment on above: Performed By: #### 4 6197 ####[facility] [address] [place], [place] [id number] Jose Erwin M.D. [id number] IG LAMBDA FREE LIGHT CHAIN 15.39 mg/L Normal 5.71-26.30 [facility] Comment on above: Performed By: #### 4 6197 ####[facility] [address] [place], [place] [id number] Jose Erwin M.D. [id number] KAPPA/LAMBDA RATIO 1.02 Normal 0.26-1.65 [facility] Comment on above: Performed By: #### 4 6193 ####[facility] [address] [address] Jose Erwin M.D. [id number] MR Cervical spine WO vonnie ruiz 11-26-2023 1. Multilevel degenerative disc disease with endplate hypertrophy. No significant canal stenosis. 2. Neural foraminal narrowing at several levels mostly C5-6 through C7-T1. See details above. 3. Slight grade 1 anterolisthesis of C4 on C5; slight degenerative retrolisthesis of C6 on C7 and C7 on T1. Choose straightening of lordosis. Workstation ID: [id number] Vpon EXAMINATION: MR CERVICAL SPINE WITHOUT CONTRAST HISTORY: ORDERING SYSTEM PROVIDED HISTORY: left arm paresthesias and neck pain, TECHNOLOGIST PROVIDED HISTORY: Injury/Trauma Reason for exam: fall today, left arm paresthesias and neck pain Encounter Type: Initial Mechanism of injury: fall today ORDERING SYSTEM PROVIDED DIAGNOSIS CODES: S42.215A Closed nondisplaced fracture of surgical neck of left humerus, unspecified fracture morphology, initial encounter Z04.3 Encounter for post fall examination E87.6 Hypokalemia COMPARISON: None TECHNIQUE: MR cervical spine without contrast. FINDINGS: There is straightening of the cervical lordosis. Mild degenerative grade 1 anterolisthesis of C4 on C5. Slight degenerative retrolisthesis of C6 on C7 and C7 on T1 which likely contributes to straightening of lordosis. No acute subluxation. No dislocation. Vertebral body heights are maintained. Bone marrow signal is unremarkable. No prevertebral soft tissue swelling. The cervical spinal cord is normal in size and signal characteristics. Cerebellar tonsils are in normal location. Findings by level: C2-C3: Disc desiccation posterior ligamentum flavum hypertrophy. No central canal or neural foraminal narrowing. C3-C4: No disc herniation. No central canal or foraminal narrowing. C4-C5: Slight grade 1 anterolisthesis of C4 on C5 with more severe right facet arthropathy greater than left. Mild annular disc bulge. Mild posterior ligamentum flavum hypertrophy. No obvious central canal stenosis. No significant neural foraminal narrowing. C5-C6: Moderate to severe degenerative disc height loss mild disc bulge. No central canal stenosis. Mild bilateral foraminal narrowing. C6-C7: Moderate degenerative disc height loss. Posterior element hypertrophy. Mild canal narrowing. No significant neural foraminal narrowing. C7-T1: Moderate to severe degenerative disc height loss disc osteophyte bulge posterior ligament flavum hypertrophy. Moderate canal stenosis. Intraforaminal disc osteophyte changes result moderate right and mild left neural foraminal narrowing. There is mild disc bulging at T2-3 and T3-4 without significant central canal or neural foraminal narrowing. In the visualized upper thoracic spine, there is no disc herniation or central canal narrowing. Casey Rojas, - 11/26/2023 EXAMINATION: MR CERVICAL SPINE WITHOUT CONTRAST HISTORY: ORDERING SYSTEM PROVIDED HISTORY: left arm paresthesias and neck pain, TECHNOLOGIST PROVIDED HISTORY: Injury/Trauma Reason for exam: fall today, left arm paresthesias and neck pain Encounter Type: Initial Mechanism of injury: fall today ORDERING SYSTEM PROVIDED DIAGNOSIS CODES: S42.215A Closed nondisplaced fracture of surgical neck of left humerus, unspecified fracture morphology, initial encounter Z04.3 Encounter for post fall examination E87.6 Hypokalemia COMPARISON: None TECHNIQUE: MR cervical spine without contrast. FINDINGS: There is straightening of the cervical lordosis. Mild degenerative grade 1 anterolisthesis of C4 on C5. Slight degenerative retrolisthesis of C6 on C7 and C7 on T1 which likely contributes to straightening of lordosis. No acute subluxation. No dislocation. Vertebral body heights are maintained. Bone marrow signal is unremarkable. No prevertebral soft tissue swelling. The cervical spinal cord is normal in size and signal characteristics. Cerebellar tonsils are in normal location. Findings by level: C2-C3: Disc desiccation posterior ligamentum flavum hypertrophy. No central canal or neural foraminal narrowing. C3-C4: No disc herniation. No central canal or foraminal narrowing. C4-C5: Slight grade 1 anterolisthesis of C4 on C5 with more severe right facet arthropathy greater than left. Mild annular disc bulge. Mild posterior ligamentum flavum hypertrophy. No obvious central canal stenosis. No significant neural foraminal narrowing. C5-C6: Moderate to severe degenerative disc height loss mild disc bulge. No central canal stenosis. Mild bilateral foraminal narrowing. C6-C7: Moderate degenerative disc height loss. Posterior element hypertrophy. Mild canal narrowing. No significant neural foraminal narrowing. C7-T1: Moderate to severe degenerative disc height loss disc osteophyte bulge posterior ligament flavum hypertrophy. Moderate canal stenosis. Intraforaminal disc osteophyte changes result moderate right and mild left neural foraminal narrowing. There is mild disc bulging at T2-3 and T3-4 without significant central canal or neural foraminal narrowing. In the visualized upper thoracic spine, there is no disc herniation or central canal narrowing. IMPRESSION: 1. Multilevel degenerative disc disease with endplate hypertrophy. No significant canal stenosis. 2. Neural foraminal narrowing at several levels mostly C5-6 through C7-T1. See details above. 3. Slight grade 1 anterolisthesis of C4 on C5; slight degenerative retrolisthesis of C6 on C7 and C7 on T1. Choose straightening of lordosis. Workstation ID: [id number] [facility] OP NOTEon 11-26-2023 OP NOTE ATTENDING PHYSICIAN NAYELY MAE MD PRIMARY CARE PHYSICIAN EMMANUEL RICKETTS MD ADMITTING PHYSICIAN NAYELY MAE MD CONSULTING PHYSICIAN NAYELY MAE MD PREOPERATIVE DIAGNOSIS Left surgical neck fracture. POSTOPERATIVE DIAGNOSIS Left surgical neck fracture. PROCEDURE Open reduction and internal fixation of left proximal humerus fracture. ANESTHESIA General anesthetic. COMPLICATIONS No intraoperative complications. SPECIMENS None. ESTIMATED BLOOD LOSS 100 cc. APPROACH Deltopectoral. HISTORY Christine is an 78-year-old patient with significant history of left shoulder proximal humerus fracture. 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 The patient at this point in time was explained all of the risks and complications of surgery, including, but not limited to, the risk of infection, bleeding, neurologic or vascular injury, the possibility of deep venous thrombosis, pulmonary embolism, myocardial infarction, stroke, or even with surgery. Explained the possibilities of continued pain, stiffness, loss of range of motion, as well as the need for future surgery. Given all of the options of anesthetic per the anesthesia team and at this point in time elected for general anesthetic. We talked about the possibility of nonunion, malunion, hardware failure, and the need for future surgery for any or all of the above complications. The patient understands this and at this point in time consents for surgical intervention. PROCEDURE IN DETAIL At this point in time, patient was met in the preoperative holding area where the left shoulder was confirmed to be the appropriate site and marked by myself. Patient was taken to the operative suite, given preoperative Kefzol per protocol as well as a general anesthetic. She was then placed in the beach chair position. Left shoulder was then sterilely prepped and draped using ChloraPrep solution. After sterilization of the left shoulder, we did our final time-out to confirm that the left shoulder was in fact the appropriate site that had been marked by myself. We then went ahead and proceeded forward with doing our deltopectoral approach. Upon entering the deep surface of the conjoined tendon as well as the deep deltoid, our retractors were placed. We then identified the biceps tendon in the bicipital groove. This allowed us to use anatomic bony landmarks to reposition the proximal humeral fracture. We then used a proximal humeral locking plate to secure the proximal humeral fracture. Once I was happy with the alignment and the plate fixation, fluoroscopy images were saved. Wound was copiously irrigated. Vancomycin powder was sprinkled over the contact surface areas of the plate. Wound was then closed with 0 Vicryl, 2 Vicryl and skin jef. Patient placed in sterile dressing, extubated and taken to PACU without intraoperative complication. D 11/26/2023 13:10 [id number] T 11/26/2023 14:00 MCB/MODL AUTHENTICATED BY AVERY DAS, ON 11/26/2023 14:12:31 Normal [facility] URINALYSISon 11-26-2023 BACTERIA, URINE None Seen Normal None Seen [facility] Comment on above: Order Comment: Injur y/Trauma or Illness?:Injury/Trauma How long have you had these symptoms (acute/chronic)?:Acute Reason for exam?:fall, head trauma Type of Exam?:Initial Mechanism of injury?:mechanical fall from standing. Hit head on ground and has neck pain. C-Collar in place on arrival. Pt also complains of severe left shoulder pain from fall. Performed By: #### 4 [id number] #### LAB [address] [place] [address] Tanvir Haile M.D. [id number] BILIRUBIN, URINE Negative Normal Negative [facility] Comment on above: Order Comment: Injur y/Trauma or Illness?:Injury/Trauma How long have you had these symptoms (acute/chronic)?:Acute Reason for exam?:fall, head trauma Type of Exam?:Initial Mechanism of injury?:mechanical fall from standing. Hit head on ground and has neck pain. C-Collar in place on arrival. Pt also complains of severe left shoulder pain from fall. Performed By: #### 4 [id number] #### LAB [address] [address] Tanvir Haile M.D. [id number] BLOOD, URINE Negative Normal Negative [facility] Comment on above: Order Comment: Injur y/Trauma or Illness?:Injury/Trauma How long have you had these symptoms (acute/chronic)?:Acute Reason for exam?:fall, head trauma Type of Exam?:Initial Mechanism of injury?:mechanical fall from standing. Hit head on ground and has neck pain. C-Collar in place on arrival. Pt also complains of severe left shoulder pain from fall. Performed By: #### 4 [id number] ####[facility] [address] [address] Tanvir Haile M.D. [id number] Clarity (U) Clear Normal Clear [facility] Comment on above: Order Comment: Injur y/Trauma or Illness?:Injury/Trauma How long have you had these symptoms (acute/chronic)?:Acute Reason for exam?:fall, head trauma Type of Exam?:Initial Mechanism of injury?:mechanical fall from standing. Hit head on ground and has neck pain. C-Collar in place on arrival. Pt also complains of severe left shoulder pain from fall. Performed By: #### 4 6694 ####[facility] [address] [address] Tanvir Haile M.D. [id number] Color (U) Yellow Normal Colorless, Yellow [facility] Comment on above: Order Comment: Injur y/Trauma or Illness?:Injury/Trauma How long have you had these symptoms (acute/chronic)?:Acute Reason for exam?:fall, head trauma Type of Exam?:Initial Mechanism of injury?:mechanical fall from standing. Hit head on ground and has neck pain. C-Collar in place on arrival. Pt also complains of severe left shoulder pain from fall. Performed By: #### 4 6638 #### LAB [address] [address] Tanvir Haile M.D. [id number] Glucose Ql (U) Negative Normal Negative [facility] Comment on above: Order Comment: Injur y/Trauma or Illness?:Injury/Trauma How long have you had these symptoms (acute/chronic)?:Acute Reason for exam?:fall, head trauma Type of Exam?:Initial Mechanism of injury?:mechanical fall from standing. Hit head on ground and has neck pain. C-Collar in place on arrival. Pt also complains of severe left shoulder pain from fall. Performed By: #### 4 [id number] #### LAB [address] [address] Tanvir Haile M.D. [id number] Ketones Ql (U) Negative Normal Negative [facility] Comment on above: Order Comment: Injur y/Trauma or Illness?:Injury/Trauma How long have you had these symptoms (acute/chronic)?:Acute Reason for exam?:fall, head trauma Type of Exam?:Initial Mechanism of injury?:mechanical fall from standing. Hit head on ground and has neck pain. C-Collar in place on arrival. Pt also complains of severe left shoulder pain from fall. Performed By: #### 4 [id number] ####[facility] [address] [address] Tanvir Haile M.D. [id number] Leukocyte esterase Test strip Ql (U) Small Abnormal Negative [facility] Comment on above: Order Comment: Injur y/Trauma or Illness?:Injury/Trauma How long have you had these symptoms (acute/chronic)?:Acute Reason for exam?:fall, head trauma Type of Exam?:Initial Mechanism of injury?:mechanical fall from standing. Hit head on ground and has neck pain. C-Collar in place on arrival. Pt also complains of severe left shoulder pain from fall. Performed By: #### 4 [id number] #### LAB [address] [address] Tanvir Haile M.D. [id number] MUCUS, URINE Rare Normal None Seen, Rare [facility] Comment on above: Order Comment: Injur y/Trauma or Illness?:Injury/Trauma How long have you had these symptoms (acute/chronic)?:Acute Reason for exam?:fall, head trauma Type of Exam?:Initial Mechanism of injury?:mechanical fall from standing. Hit head on ground and has neck pain. C-Collar in place on arrival. Pt also complains of severe left shoulder pain from fall. Performed By: #### 4 [id number] ####[facility] [address] [address] Tanvir Haile M.D. [id number] NITRITE, URINE Negative Normal Negative [facility] Comment on above: Order Comment: Injur y/Trauma or Illness?:Injury/Trauma How long have you had these symptoms (acute/chronic)?:Acute Reason for exam?:fall, head trauma Type of Exam?:Initial Mechanism of injury?:mechanical fall from standing. Hit head on ground and has neck pain. C-Collar in place on arrival. Pt also complains of severe left shoulder pain from fall. Performed By: #### 4 [id number] #### LAB [address] [address] Tanvir Haile M.D. [id number] pH (U) 6.5 [pH] Normal 5.0-7.0 [facility] Comment on above: Order Comment: Injur y/Trauma or Illness?:Injury/Trauma How long have you had these symptoms (acute/chronic)?:Acute Reason for exam?:fall, head trauma Type of Exam?:Initial Mechanism of injury?:mechanical fall from standing. Hit head on ground and has neck pain. C-Collar in place on arrival. Pt also complains of severe left shoulder pain from fall. Performed By: #### 4 [id number] ####[facility] [address] [address] Tanvir Haile M.D. [id number] PROTEIN, URINE Negative Normal Negative [facility] Comment on above: Order Comment: Injur y/Trauma or Illness?:Injury/Trauma How long have you had these symptoms (acute/chronic)?:Acute Reason for exam?:fall, head trauma Type of Exam?:Initial Mechanism of injury?:mechanical fall from standing. Hit head on ground and has neck pain. C-Collar in place on arrival. Pt also complains of severe left shoulder pain from fall. Performed By: #### 4 [id number] ####[facility] [address] [address] Tanvir Haile M.D. [id number] RBC LM.HPF (Urine sed) [#/Area] 1 /[HPF] Normal 0-3 [facility] Comment on above: Order Comment: Injur y/Trauma or Illness?:Injury/Trauma How long have you had these symptoms (acute/chronic)?:Acute Reason for exam?:fall, head trauma Type of Exam?:Initial Mechanism of injury?:mechanical fall from standing. Hit head on ground and has neck pain. C-Collar in place on arrival. Pt also complains of severe left shoulder pain from fall. Performed By: #### 4 [id number] ####[facility] [address] [address] Tanvir Haile M.D. [id number] Specific gravity (U) [Rel density] 1.020 Normal 1.005-1.025 [facility] Comment on above: Order Comment: Injur y/Trauma or Illness?:Injury/Trauma How long have you had these symptoms (acute/chronic)?:Acute Reason for exam?:fall, head trauma Type of Exam?:Initial Mechanism of injury?:mechanical fall from standing. Hit head on ground and has neck pain. C-Collar in place on arrival. Pt also complains of severe left shoulder pain from fall. Performed By: #### 4 [id number] #### LAB [address] [address] Tanvir Haile M.D. [id number] SQUAMOUS EPITHELIAL < Normal 0-4 [facility] Comment on above: Order Comment: Injur y/Trauma or Illness?:Injury/Trauma How long have you had these symptoms (acute/chronic)?:Acute Reason for exam?:fall, head trauma Type of Exam?:Initial Mechanism of injury?:mechanical fall from standing. Hit head on ground and has neck pain. C-Collar in place on arrival. Pt also complains of severe left shoulder pain from fall. Performed By: #### 4 [id number] #### LAB [address] [address] Tanvir Haile M.D. [id number] UROBILINOGEN, URINE <2.0 Normal <2.0 [facility] Comment on above: Order Comment: Injur y/Trauma or Illness?:Injury/Trauma How long have you had these symptoms (acute/chronic)?:Acute Reason for exam?:fall, head trauma Type of Exam?:Initial Mechanism of injury?:mechanical fall from standing. Hit head on ground and has neck pain. C-Collar in place on arrival. Pt also complains of severe left shoulder pain from fall. Performed By: #### 4 6642 #### LAB [address], [place] [address] Tanvir Haile M.D. [id number] WBC LM.HPF (Urine sed) [#/Area] 3 /[HPF] Normal 0-5 [facility] Comment on above: Order Comment: Injur y/Trauma or Illness?:Injury/Trauma How long have you had these symptoms (acute/chronic)?:Acute Reason for exam?:fall, head trauma Type of Exam?:Initial Mechanism of injury?:mechanical fall from standing. Hit head on ground and has neck pain. C-Collar in place on arrival. Pt also complains of severe left shoulder pain from fall. Performed By: #### 4 6625 #### LAB [address], [place] [address] Tanvir Haile M.D. [id number] URINE AEROBIC CULTUREon URINE AEROBIC CULTURE URINE CULTURE No Growth (<1,000 CFU/mL) Normal [facility] Comment on above: Performed By: #### 4 [id number] ####[facility] [address] [place] [address] Jose Erwin M.D. [id number] Urinalysison 11-26-2023 Bacteria Auto Ql (U) None Seen None Seen /hpf [facility] Bilirubin Ql (U) Negative Negative [facility] Clarity Refractometry automated (U) Clear [facility] Color (U) Yellow Colorless, Yellow [facility] Epithelial cells.squamous Auto (Urine sed) [#/Area] [facility] Glucose Auto test strip (U) [Mass/Vol] Negative Negative mg/dL [facility] Hemoglobin Auto test strip Ql (U) Negative Negative [facility] Interpretation and review of laboratory results Abnormal [facility] Ketones (U) [Mass/Vol] Negative Negative mg/dL [facility] Leukocyte esterase Auto test strip Ql (U) Small Abnormal Negative [facility] Mucus Auto (Urine sed) [#/Area] Rare None Seen, Rare /lpf [facility] Nitrite Auto test strip Ql (U) Negative Negative [facility] pH (U) 6.5 [pH] 5.0 - 7.0 [facility] Protein (U) [Mass/Vol] Negative Negative mg/dL [facility] RBC Auto (Urine sed) [#/Area] 1 [facility] Specific gravity (U) [Rel density] 1.020 1.005 - 1.025 [facility] Urobilinogen (U) [Mass/Vol] mg/dL NINF - 2.0 mg/dL [facility] WBC Auto (Urine sed) [#/Area] 3 [facility] Microscopic examinat ion is performed on all urinalysis samples and only positive findings are reported. The test for blood on the chemical analytic portion of urinalysis may also be positive due to hemoglobinuria and myoglobinuria and if red blood cells are present they are quantified by microscopic examination. [facility] VITAMIN D, TOTAL, 25-OHon VITAMIN D 25-HYDROXY 36 ng/mL Normal 20-100 [facility] Comment on above: Order Comment: Injur y/Trauma or Illness?:Injury/Trauma How long have you had these symptoms (acute/chronic)?:Acute Reason for exam?:fall, head trauma Type of Exam?:Initial Mechanism of injury?:mechanical fall from standing. Hit head on ground and has neck pain. C-Collar in place on arrival. Pt also complains of severe left shoulder pain from fall. Performed By: #### 4 6678 #### LAB [address], [place] [address] Tanvir Haile M.D. [id number] Vitamin D, Total, 25-OHon 25-hydroxyvitamin D [Mass/Vol] 36 ng/mL 20 - 100 ng/mL [facility] Interpretation and review of laboratory results Normal [facility] Vitamin D Expected V alues Deficiency: 0-10 Insufficiency: 10-20 Sufficient: 20-100 Toxicity: >100 [facility] XR Humerus - left 2 Viewson 11-26-2023 Operative fluoroscopy was utilized during ORIF of left proximal humerus. 4 images were submitted. Please see operative report for full details. Workstation ID: [id number] Vpon EXAMINATION: XR OR HUMERUS LEFT 2+ VIEWS HISTORY: ORDERING SYSTEM PROVIDED HISTORY: Lt. Humerus ORIF, TECHNOLOGIST PROVIDED HISTORY: Illness/Other Reason for exam: Lt. ORIF Humerus Encounter Type: Initial Additional signs and symptoms: . Fluoro dose in mGy: 3.93 ORDERING SYSTEM PROVIDED DIAGNOSIS CODES: S42.215A Closed nondisplaced fracture of surgical neck of left humerus, unspecified fracture morphology, initial encounter Z04.3 Encounter for post fall examination E87.6 Hypokalemia COMPARISON: Left shoulder CT 11/25/2023. TECHNIQUE: Fluoro Dose Ka,r mGy: Fluoro dose in Ka,r mGy: 3.93 4 images were submitted. FINDINGS: Operative fluoroscopy was utilized during ORIF of left proximal humerus. 4 images were submitted. Please see operative report for full details. [facility] Lena Beltran, DO - 11/26/2023 EXAMINATION: XR OR HUMERUS LEFT 2+ VIEWS HISTORY: ORDERING SYSTEM PROVIDED HISTORY: Lt. Humerus ORIF, TECHNOLOGIST PROVIDED HISTORY: Illness/Other Reason for exam: Lt. ORIF Humerus Encounter Type: Initial Additional signs and symptoms: . Fluoro dose in mGy: 3.93 ORDERING SYSTEM PROVIDED DIAGNOSIS CODES: S42.215A Closed nondisplaced fracture of surgical neck of left humerus, unspecified fracture morphology, initial encounter Z04.3 Encounter for post fall examination E87.6 Hypokalemia COMPARISON: Left shoulder CT 11/25/2023. TECHNIQUE: Fluoro Dose Ka,r mGy: Fluoro dose in Ka,r mGy: 3.93 4 images were submitted. FINDINGS: Operative fluoroscopy was utilized during ORIF of left proximal humerus. 4 images were submitted. Please see operative report for full details. IMPRESSION: Operative fluoroscopy was utilized during ORIF of left proximal humerus. 4 images were submitted. Please see operative report for full details. Workstation ID: [id number] [facility] Radiology Study observation (narrative) [facility] XR Humerus - left 2 ViewsOrd ered By: Lena Beltran on 11-26-2023 [facility] Work Phone: XR OR HUMERUS LEFT 2+ VIEWSo n 11-26-2023 XR OR HUMERUS LEFT 2+ VIEWS EXAMINATION: XR OR HUMERUS LEFT 2+ VIEWS HISTORY: ORDERING SYSTEM PROVIDED HISTORY: Lt. Humerus ORIF, TECHNOLOGIST PROVIDED HISTORY: Illness/Other Reason for exam: Lt. ORIF Humerus Encounter Type: Initial Additional signs and symptoms: . Fluoro dose in mGy: 3.93 ORDERING SYSTEM PROVIDED DIAGNOSIS CODES: S42.215A Closed nondisplaced fracture of surgical neck of left humerus, unspecified fracture morphology, initial encounter Z04.3 Encounter for post fall examination E87.6 Hypokalemia COMPARISON: Left shoulder CT 11/25/2023. TECHNIQUE: Fluoro Dose Ka,r mGy: Fluoro dose in Ka,r mGy: 3.93 4 images were submitted. FINDINGS: Operative fluoroscopy was utilized during ORIF of left proximal humerus. 4 images were submitted. Please see operative report for full details. IMPRESSION: Operative fluoroscopy was utilized during ORIF of left proximal humerus. 4 images were submitted. Please see operative report for full details. Workstation ID: [id number] Dictated by: LENA WELLER on FriNovember 26, 2023 1:38:20 PM EDT Transcribed by: LENA WELLER on FriNovember 26, 2023 1:38:20 PM EDT Finalized by: LENA WELLER on FriNovember 26, 2023 1:38:20 PM EDT [facility] Comment on above: Order Comment: Injur y/Trauma or Illness?:Illness/OtherHow long have you had these symptoms (acute/chronic)?:ChronicReason for exam?:Lt. ORIF HumerusType of Exam?:InitialAdditional signs and symptoms?:.Fluoro time in minutes:0.6237 secFluoro dose in mGy?:3.93mGy XR Pelvis 1 or 2 Viewson 1. No acute osseous injury with normal alignment. 2. 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 3. 3.0 cm long metallic density wire projecting over the lower pelvis. This finding may be external to the patient. VKR/pji Workstation ID: [id number] GE RIS EXAMINATION: XR PELVIS 1 VIEW (STANDARD) HISTORY: ORDERING SYSTEM PROVIDED HISTORY: Trauma Category 2. TECHNOLOGIST PROVIDED HISTORY: Injury/Trauma. Reason for exam: Fall. Cancer History: U. Surgery, Radiation History: Left bunionectomy. Encounter Type: Initial. Mechanism of injury: Fall, mechanical fall from standing. COMPARISON: None. FINDINGS: Single supine image is submitted. Bony pelvis is intact. Patient is osteopenic. The SI joints are symmetric. Sacrum, coccyx, iliac crests, pubic rami and pubic symphysis are normal. The proximal femurs are intact with bilateral egor-dxzslze-bobv-right acetabular osteoarthritis. No soft tissue injury. Prior lower lumbar spine fusion partially imaged. A 3.0 cm long metallic density wire overlies the lower pelvis. [facility] Kate Fox MD - 11/26/2023 EXAMINATION: XR PELVIS 1 VIEW (STANDARD) HISTORY: ORDERING SYSTEM PROVIDED HISTORY: Trauma Category 2. TECHNOLOGIST PROVIDED HISTORY: Injury/Trauma. Reason for exam: Fall. Cancer History: U. Surgery, Radiation History: Left bunionectomy. Encounter Type: Initial. Mechanism of injury: Fall, mechanical fall from standing. COMPARISON: None. FINDINGS: Single supine image is submitted. Bony pelvis is intact. Patient is osteopenic. The SI joints are symmetric. Sacrum, coccyx, iliac crests, pubic rami and pubic symphysis are normal. The proximal femurs are intact with bilateral mtnk-lfamclh-rnzy-right acetabular osteoarthritis. No soft tissue injury. Prior lower lumbar spine fusion partially imaged. A 3.0 cm long metallic density wire overlies the lower pelvis. IMPRESSION: 1. No acute osseous injury with normal alignment. 2. Osteopenia with bilateral utpy-aisopqk-peoa-right acetabular osteoarthritis. 3. 3.0 cm long metallic density wire projecting over the lower pelvis. This finding may be external to the patient. VKR/pji Workstation ID: [id number] [facility] XR Pelvis 1 or 2 ViewsOrdere d By: Kate Fox on 11-26-2023 [facility] Work Phone: ABORH VERIFICATIONon 024 ABO and Rh group Nom (Bld) Blood group O Rh(D) positive Normal [facility] ABO and Rh group Nom (Bld) ABO/Rh Verification Normal [facility] Comment on above: Result Comment: Ofelia ent's ABO/Rh is verified. ABORH Verificationon 024 ABO and Rh group Nom (Bld) Blood group O Rh(D) positive [facility] ABO and Rh group Nom (Bld) ABO/Rh Verification [facility] Comment on above: Patient's ABO/Rh is verified. [facility] ALCOHOL, MEDICALon ALCOHOL MEDICAL < Normal <10.0 [facility] Comment on above: Result Comment: Alco hol cutoff: <10.00 mg/dL = None Detected Performed By: #### 4 [id number] ####[facility] [address] [place], [place] [address] Tanvir Haile M.D. [id number] Alcohol, MedicalOrdered By: Estella Willis on 11-25-2023 Ethanol [Mass/Vol] mg/dL NINF - 10 .0 mg/dL [facility] Comment on above: Alcohol cutoff: <10. 00 mg/dL = None Detected Blood type and Indirect anti body screen panel (Bld)on 11-25-2023 ABO and Rh group Nom (Bld) Blood group O Rh(D) positive [facility] Blood group antibody screen Ql Negative [facility] Specimen Expires 11/28/2023 23:59 EST [facility] CT CERVICAL SPINE WITHOUT CO NTRASTon 11-25-2023 CT CERVICAL SPINE WITHOUT CONTRAST EXAMINATION: CT HEAD OR BRAIN WITHOUT CONTRAST; CT CERVICAL SPINE WITHOUT CONTRAST HISTORY: fall head trauma Injury/Trauma or Illness?:Injury/Trauma How long have you had these symptoms (acute/chronic)?:Acute Reason for exam?:fall, head trauma Type of Exam?:Initial Mechanism of injury?:mechanical fall from standing. Hit head on ground and has neck pain. C-Collar in place on arrival. Pt also complains of severe left shoulder pain from fall. ; trauma neck pain Injury/Trauma or Illness?:Injury/Trauma How long have you had these symptoms (acute/chronic)?:Acute Reason for exam?:neck pain Type of Exam?:Initial Mechanism of injury?:mechanical fall from standing. Hit head on ground and has neck pain. C-Collar in place on arrival. Pt also complains of severe left shoulder pain from fall. COMPARISON: Cervical spine radiograph 09/30/2017 TECHNIQUE: Axial noncontrast CT imaging of the head and cervical spine was performed with coronal and sagittal reformats. Dose reduction techniques were achieved by using automated exposure control and/or adjustment of mA and/or kV according to patient size and/or use of iterative reconstruction technique. FINDINGS: CT head Calvarium/skull base: No evidence of acute fracture or destructive lesion.Mastoids and middle ears demonstrate no substantial mucosal disease. Bilateral telida ocular lens replacements. Paranasal sinuses:No air fluid levels. Brain: No acute intracranial hemorrhage. No acute large vascular territory infarct. Calcified right anterior parietal convexity dural-based mass with mild periosteal reaction involving the underlying calvarium. This is favored to relate to a calcified meningioma given the appearance measuring approximately 8 x 8 x 5 mm (transverse, AP, craniocaudal).Minimal parenchymal volume loss. Remote right cerebellar game moderator infarct. Probable prominent perivascular space involving the inferior right lentiform nucleus. No hydrocephalus. CT cervical spine Alignment: Straightening of the normal cervical lordosis. Trace anterolisthesis of C4 on C5 favored degenerative in nature. Vertebrae: No acute fracture. Vertebral body heights are maintained. Craniocervical junction: No focal abnormality. Degenerative changes: Moderate to advanced degenerative change greater involving the mid and lower cervical spine with advanced disc height loss, sclerotic degenerative endplate change and osteophytic spurring. Multilevel moderate uncovertebral and facet arthropathy is present with multilevel at least ovlm-vb-pnktjjcy canal stenosis and mild foraminal stenosis. Additional comments: Atherosclerotic changes are noted with retropharyngeal course of the bilateral common and internal carotid arteries. Visualized portion of upper lungs are clear. IMPRESSION: 1. No acute intracranial process. 2. 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 3. Remote right cerebellar game moderator infarct. 4. No acute fracture or malalignment of the cervical spine. Workstation ID: [id number] Dictated by: PAIGE COLLINS on FriNovember 25, 2023 3:44:13 PM EDT Transcribed by: PAIGE COLLINS on FriNovember 25, 2023 3:44:13 PM EDT Finalized by: PAIGE COLLINS on FriNovember 25, 2023 3:44:13 PM EDT Normal [facility] Comment on above: Order Comment: Injur y/Trauma or Illness?:Injury/Trauma How long have you had these symptoms (acute/chronic)?:Acute Reason for exam?:neck pain Type of Exam?:Initial Mechanism of injury?:mechanical fall from standing. Hit head on ground and has neck pain. C-Collar in place on arrival. Pt also complains of severe left shoulder pain from fall. CT CHEST ABDOMEN PELVIS WITH OUT CONTRAST WITH T/L RECONSon 11-25-2023 CT CHEST ABDOMEN PELVIS WITHOUT CONTRAST WITH T/L RECONS EXAMINATION: CT CHEST ABDOMEN PELVIS WITHOUT CONTRAST WITH T/L RECONS HISTORY: ORDERING SYSTEM PROVIDED HISTORY: trauma fall, TECHNOLOGIST PROVIDED HISTORY: Injury/Trauma Reason for exam: mechanical fall from standing. Hit head on ground and has neck pain. C-Collar in place on arrival. Pt also complains of severe left shoulder pain from fall. Encounter Type: Initial Mechanism of injury: fall ORDERING SYSTEM PROVIDED DIAGNOSIS CODES: COMPARISON: None. TECHNIQUE: Dose reduction techniques were achieved by using automated exposure control and/or adjustment of mA and/or kV according to patient size and/or use of iterative reconstruction technique. Noncontrast axial CT images obtained through the chest, abdomen, and pelvis. Reconstructions obtained in the sagittal and coronal planes. Reconstructed images of the thoracic and lumbar spine obtained in the axial, sagittal, and coronal planes. FINDINGS: CT chest: Thyroid gland unremarkable. Trachea appears normal. Esophagus unremarkable. Small hiatal hernia. Cardiomegaly. Coronary artery calcifications. Calcification of the mitral valve annulus. No pericardial effusion. Heavy calcification of the aortic arch and descending aorta. No thoracic aorta aneurysm. No enlarged mediastinal or hilar lymph nodes. No pleural effusion. No pneumothorax. No pulmonary edema. No evidence of pneumonia. No suspicious lung nodules or masses. There is some soft tissue swelling in the left breast. There is a displaced fracture of the surgical neck of the proximal humerus on the left. No acute rib fracture identified. CT abdomen and pelvis: No suspicious liver lesion. Gallbladder has been removed. Common bile duct is dilated, likely related to cholecystectomy. Pancreas unremarkable. Spleen unremarkable. Adrenal glands normal. No hydronephrosis. No kidney stones. No gastric wall thickening. Duodenum unremarkable. No bowel obstruction. There is stool throughout the colon. Numerous diverticula along the colon, without acute inflammation. No mesenteric edema. No ascites. No free air. Calcification of the abdominal aorta, without aneurysmal enlargement. Inferior vena cava normal in size. No lymphadenopathy appreciated. In the pelvis, bladder is normal. Hysterectomy. Numerous diverticula along the sigmoid colon, without inflammation. Rectum unremarkable. No free fluid in the pelvis. No pelvic lymphadenopathy. Proximal femurs appear to be intact. No pelvic bone fracture. CT thoracic and lumbar spine: There is fixation hardware in the lumbar spine at L3 through L5. There is grade 1 spondylolisthesis at L4-5. Mild chronic compression fracture at L2 and L4. Mild chronic compression fracture at T11. No acute compression fracture in the thoracic spine or lumbar spine is clearly identified. IMPRESSION: 1. There is an acute displaced surgical neck fracture of the proximal humerus on the left. 2. No other acute fractures identified. No rib fractures appreciated. No acute fracture appreciated in the thoracic or lumbar spine. 3. No acute intrathoracic traumatic injury appreciated. There is no pneumothorax or pleural effusion. No mediastinal hematoma. 4. Cardiomegaly. Coronary artery disease. Small hiatal hernia. 5. No acute intraabdominal or pelvic traumatic injury. 6. Cholecystectomy and hysterectomy. [employer]iy[employer] Workstation ID: [id number] Dictated by: CONNOR SANDS on FriNovember 25, 2023 3:53:57 PM EDT Transcribed by: RUBA LORENZO on FriNovember 25, 2023 4:03:43 PM EDT Finalized by: CONNOR SANDS on FriNovember 25, 2023 4:05:27 PM EDT [facility] Comment on above: Order Comment: Injur y/Trauma or Illness?:Injury/TraumaHow long have you had these symptoms (acute/chronic)?:AcuteReason for exam?:mechanical fall from standing. Hit head on ground and has neck pain. C-Collar in place on arrival. Pt also complains of severe left shoulder pain from fall.Type of Exam?:InitialMechanism of injury?:fall CT Cervical spine WO contras ton 11-25-2023 Radiology Study observation (narrative) [facility] CT Chest and Abdomen and Pel vis W contrast Anna 11-25-2023 1. There is an acute displaced surgical neck fracture of the proximal humerus on the left. 2. No other acute fractures identified. No rib fractures appreciated. No acute fracture appreciated in the thoracic or lumbar spine. 3. No acute intrathoracic traumatic injury appreciated. There is no pneumothorax or pleural effusion. No mediastinal hematoma. 4. Cardiomegaly. Coronary artery disease. Small hiatal hernia. 5. No acute intraabdominal or pelvic traumatic injury. 6. Cholecystectomy and hysterectomy. Viyet/[employer]er Workstation ID: [id number] [employer] [facility] EXAMINATION: CT CHEST ABDOMEN PELVIS WITHOUT CONTRAST WITH T/L RECONS HISTORY: ORDERING SYSTEM PROVIDED HISTORY: trauma fall, TECHNOLOGIST PROVIDED HISTORY: Injury/Trauma Reason for exam: mechanical fall from standing. Hit head on ground and has neck pain. C-Collar in place on arrival. Pt also complains of severe left shoulder pain from fall. Encounter Type: Initial Mechanism of injury: fall ORDERING SYSTEM PROVIDED DIAGNOSIS CODES: COMPARISON: None. TECHNIQUE: Dose reduction techniques were achieved by using automated exposure control and/or adjustment of mA and/or kV according to patient size and/or use of iterative reconstruction technique. Noncontrast axial CT images obtained through the chest, abdomen, and pelvis. Reconstructions obtained in the sagittal and coronal planes. Reconstructed images of the thoracic and lumbar spine obtained in the axial, sagittal, and coronal planes. FINDINGS: CT chest: Thyroid gland unremarkable. Trachea appears normal. Esophagus unremarkable. Small hiatal hernia. Cardiomegaly. Coronary artery calcifications. Calcification of the mitral valve annulus. No pericardial effusion. Heavy calcification of the aortic arch and descending aorta. No thoracic aorta aneurysm. No enlarged mediastinal or hilar lymph nodes. No pleural effusion. No pneumothorax. No pulmonary edema. No evidence of pneumonia. No suspicious lung nodules or masses. There is some soft tissue swelling in the left breast. There is a displaced fracture of the surgical neck of the proximal humerus on the left. No acute rib fracture identified. CT abdomen and pelvis: No suspicious liver lesion. Gallbladder has been removed. Common bile duct is dilated, likely related to cholecystectomy. Pancreas unremarkable. Spleen unremarkable. Adrenal glands normal. No hydronephrosis. No kidney stones. No gastric wall thickening. Duodenum unremarkable. No bowel obstruction. There is stool throughout the colon. Numerous diverticula along the colon, without acute inflammation. No mesenteric edema. No ascites. No free air. Calcification of the abdominal aorta, without aneurysmal enlargement. Inferior vena cava normal in size. No lymphadenopathy appreciated. In the pelvis, bladder is normal. Hysterectomy. Numerous diverticula along the sigmoid colon, without inflammation. Rectum unremarkable. No free fluid in the pelvis. No pelvic lymphadenopathy. Proximal femurs appear to be intact. No pelvic bone fracture. CT thoracic and lumbar spine: There is fixation hardware in the lumbar spine at L3 through L5. There is grade 1 spondylolisthesis at L4-5. Mild chronic compression fracture at L2 and L4. Mild chronic compression fracture at T11. No acute compression fracture in the thoracic spine or lumbar spine is clearly identified. [employer] [facility] Connor Sands MD - 11/25/2023 EXAMINATION: CT CHEST ABDOMEN PELVIS WITHOUT CONTRAST WITH T/L RECONS HISTORY: ORDERING SYSTEM PROVIDED HISTORY: trauma fall, TECHNOLOGIST PROVIDED HISTORY: Injury/Trauma Reason for exam: mechanical fall from standing. Hit head on ground and has neck pain. C-Collar in place on arrival. Pt also complains of severe left shoulder pain from fall. Encounter Type: Initial Mechanism of injury: fall ORDERING SYSTEM PROVIDED DIAGNOSIS CODES: COMPARISON: None. TECHNIQUE: Dose reduction techniques were achieved by using automated exposure control and/or adjustment of mA and/or kV according to patient size and/or use of iterative reconstruction technique. Noncontrast axial CT images obtained through the chest, abdomen, and pelvis. Reconstructions obtained in the sagittal and coronal planes. Reconstructed images of the thoracic and lumbar spine obtained in the axial, sagittal, and coronal planes. FINDINGS: CT chest: Thyroid gland unremarkable. Trachea appears normal. Esophagus unremarkable. Small hiatal hernia. Cardiomegaly. Coronary artery calcifications. Calcification of the mitral valve annulus. No pericardial effusion. Heavy calcification of the aortic arch and descending aorta. No thoracic aorta aneurysm. No enlarged mediastinal or hilar lymph nodes. No pleural effusion. No pneumothorax. No pulmonary edema. No evidence of pneumonia. No suspicious lung nodules or masses. There is some soft tissue swelling in the left breast. There is a displaced fracture of the surgical neck of the proximal humerus on the left. No acute rib fracture identified. CT abdomen and pelvis: No suspicious liver lesion. Gallbladder has been removed. Common bile duct is dilated, likely related to cholecystectomy. Pancreas unremarkable. Spleen unremarkable. Adrenal glands normal. No hydronephrosis. No kidney stones. No gastric wall thickening. Duodenum unremarkable. No bowel obstruction. There is stool throughout the colon. Numerous diverticula along the colon, without acute inflammation. No mesenteric edema. No ascites. No free air. Calcification of the abdominal aorta, without aneurysmal enlargement. Inferior vena cava normal in size. No lymphadenopathy appreciated. In the pelvis, bladder is normal. Hysterectomy. Numerous diverticula along the sigmoid colon, without inflammation. Rectum unremarkable. No free fluid in the pelvis. No pelvic lymphadenopathy. Proximal femurs appear to be intact. No pelvic bone fracture. CT thoracic and lumbar spine: There is fixation hardware in the lumbar spine at L3 through L5. There is grade 1 spondylolisthesis at L4-5. Mild chronic compression fracture at L2 and L4. Mild chronic compression fracture at T11. No acute compression fracture in the thoracic spine or lumbar spine is clearly identified. IMPRESSION: 1. There is an acute displaced surgical neck fracture of the proximal humerus on the left. 2. No other acute fractures identified. No rib fractures appreciated. No acute fracture appreciated in the thoracic or lumbar spine. 3. No acute intrathoracic traumatic injury appreciated. There is no pneumothorax or pleural effusion. No mediastinal hematoma. 4. Cardiomegaly. Coronary artery disease. Small hiatal hernia. 5. No acute intraabdominal or pelvic traumatic injury. 6. Cholecystectomy and hysterectomy. [employer]et/[employer] Workstation ID: [id number] [facility] Radiology Study observation (narrative) [facility] CT Chest and Abdomen and Pel vis W contrast IVOrdered By: Connor Sands on 11-25-2023 [facility] Work Phone: CT HEAD OR BRAIN WITHOUT CON TRASTon 11-25-2023 CT HEAD OR BRAIN WITHOUT CONTRAST EXAMINATION: CT HEAD OR BRAIN WITHOUT CONTRAST; CT CERVICAL SPINE WITHOUT CONTRAST HISTORY: fall head trauma Injury/Trauma or Illness?:Injury/Trauma How long have you had these symptoms (acute/chronic)?:Acute Reason for exam?:fall, head trauma Type of Exam?:Initial Mechanism of injury?:mechanical fall from standing. Hit head on ground and has neck pain. C-Collar in place on arrival. Pt also complains of severe left shoulder pain from fall. ; trauma neck pain Injury/Trauma or Illness?:Injury/Trauma How long have you had these symptoms (acute/chronic)?:Acute Reason for exam?:neck pain Type of Exam?:Initial Mechanism of injury?:mechanical fall from standing. Hit head on ground and has neck pain. C-Collar in place on arrival. Pt also complains of severe left shoulder pain from fall. COMPARISON: Cervical spine radiograph 09/30/2017 TECHNIQUE: Axial noncontrast CT imaging of the head and cervical spine was performed with coronal and sagittal reformats. Dose reduction techniques were achieved by using automated exposure control and/or adjustment of mA and/or kV according to patient size and/or use of iterative reconstruction technique. FINDINGS: CT head Calvarium/skull base: No evidence of acute fracture or destructive lesion.Mastoids and middle ears demonstrate no substantial mucosal disease. Bilateral telida ocular lens replacements. Paranasal sinuses:No air fluid levels. Brain: No acute intracranial hemorrhage. No acute large vascular territory infarct. Calcified right anterior parietal convexity dural-based mass with mild periosteal reaction involving the underlying calvarium. This is favored to relate to a calcified meningioma given the appearance measuring approximately 8 x 8 x 5 mm (transverse, AP, craniocaudal).Minimal parenchymal volume loss. Remote right cerebellar game moderator infarct. Probable prominent perivascular space involving the inferior right lentiform nucleus. No hydrocephalus. CT cervical spine Alignment: Straightening of the normal cervical lordosis. Trace anterolisthesis of C4 on C5 favored degenerative in nature. Vertebrae: No acute fracture. Vertebral body heights are maintained. Craniocervical junction: No focal abnormality. Degenerative changes: Moderate to advanced degenerative change greater involving the mid and lower cervical spine with advanced disc height loss, sclerotic degenerative endplate change and osteophytic spurring. Multilevel moderate uncovertebral and facet arthropathy is present with multilevel at least qkcq-um-zviundxv canal stenosis and mild foraminal stenosis. Additional comments: Atherosclerotic changes are noted with retropharyngeal course of the bilateral common and internal carotid arteries. Visualized portion of upper lungs are clear. IMPRESSION: 1. No acute intracranial process. 2. 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 3. Remote right cerebellar game moderator infarct. 4. No acute fracture or malalignment of the cervical spine. Workstation ID: [id number] Dictated by: PAIGE COLLINS on FriNovember 25, 2023 3:44:13 PM EDT Transcribed by: PAIGE COLLINS on FriNovember 25, 2023 3:44:13 PM EDT Finalized by: PAIGE COLLINS on FriNovember 25, 2023 3:44:13 PM EDT Normal [facility] Comment on above: Order Comment: Injur y/Trauma or Illness?:Injury/Trauma How long have you had these symptoms (acute/chronic)?:Acute Reason for exam?:fall, head trauma Type of Exam?:Initial Mechanism of injury?:mechanical fall from standing. Hit head on ground and has neck pain. C-Collar in place on arrival. Pt also complains of severe left shoulder pain from fall. CT Head WO contraston 2023 Radiology Study observation (narrative) [facility] CT SHOULDER LEFT WITHOUT CON TRASTon 11-25-2023 CT SHOULDER LEFT WITHOUT CONTRAST EXAMINATION: CT SHOULDER LEFT WITHOUT CONTRAST HISTORY: ORDERING SYSTEM PROVIDED HISTORY: Shoulder trauma, fracture of humerus or scapula, TECHNOLOGIST PROVIDED HISTORY: Injury/Trauma Reason for exam: fall, left shoulder pain, prev xray done with proximal humerus fx Encounter Type: Subsequent/Follow-up Mechanism of injury: fall ORDERING SYSTEM PROVIDED DIAGNOSIS CODES: S42.215A Closed nondisplaced fracture of surgical neck of left humerus, unspecified fracture morphology, initial encounter Z04.3 Encounter for post fall examination E87.6 Hypokalemia COMPARISON: None FINDINGS: There is an acute comminuted, displaced and angulated fracture of the left proximal humerus at the surgical neck region. There is significant apex anterior angulation was anterior displacement of the distal shaft proximal humeral head portion with posterior fashion overlap of fragments. The glenohumeral joint is maintained without acute subluxation dislocation. There is moderate degenerative osteoarthritic narrowing of the AC joint with chondrocalcinosis of capsular soft tissues. There is calcification or calcinosis involving the left shoulder rotator cuff tendons distally at the supraspinatus and infraspinatus region with suspected chronic calcific tendinosis of both tendons. Likewise there is chondrocalcinosis of the glenohumeral joint and labrum. Changes could be from CPPD arthropathy or age-related given patient's stated age. There is underlying osteoporosis. No lytic or blastic lesion. No other fractures. No significant glenohumeral joint effusion. The imaged left upper chest wall ribs are maintained. No left apical pneumothorax acute left lung parenchymal findings. IMPRESSION: 1. Acute comminuted impacted and displaced proximal humeral fracture involving primarily the surgical neck with significant apex anterior angulation and anterior displacement of the distal shaft proximal head fragment components posterior impaction and overlap. 2. Background osseous osteoporosis. 3. No acute subluxation dislocation joints. 4. Chondrocalcinosis of AC joint and glenoid labrum as well as rotator cuff tendons. See comments above. Workstation ID: [id number] Dictated by: CASEY FELICIANO on FriNovember 26, 2023 2:03:04 AM EDT Transcribed by: CASEY FELICIANO on FriNovember 26, 2023 2:03:04 AM EDT Finalized by: CASEY FELICIANO on FriNovember 26, 2023 2:03:04 AM EDT [facility] Comment on above: Order Comment: Injur y/Trauma or Illness?:Injury/Trauma How long have you had these symptoms (acute/chronic)?:Acute Reason for exam?:fall, left shoulder pain, prev xray done with proximal humerus fx Type of Exam?:Subsequent/Follow-up Mechanism of injury?:fall CT Shoulder - left CAM shah 11-25-2023 Radiology Study observation (narrative) [facility] ED Prov Noteon 11-25-2023 ED Prov Note [facility] ATTENDING NOTE: NAME: Christine Mays CSN: [id number] 78 y.o. PCP: Emmanuel Ricketts MD History: Chief Complaint: Fall HPI: The history was obtained from the patient and EMS. Christine is a 78 y.o. female who presents with a chief complaint of Fall. The patient is an 78-year-old female with past medical history of hypertension, hyperlipidemia, chronic low back pain, hypothyroidism, presented for mechanical fall. Patient states that she was standing on a walking ramp when she lost her balance falling onto her left side injuring her left shoulder and hitting her head. Patient arrived via EMS as evaluated by myself and trauma team. Patient was awake, alert, oriented, bilateral breath sounds, airway intact, GCS 15 with appropriate perfusion of the extremities. PMHx: Past Medical History: Diagnosis Date Anxiety Chronic back pain DDD (degenerative disc disease), lumbar Disease of thyroid gland Headache, tension-type Spinal stenosis PMSx: Past Surgical History: Procedure Laterality Date BREAST REDUCTION CHOLECYSTECTOMY FOOT SURGERY Right HYSTERECTOMY PILONIDAL CYST TRIGGER FINGER RELEASE Left FAM. Hx: Family History Problem Relation Age of Onset Heart disease Father Heart attack Sister Heart disease Brother Heart disease Brother SOC. Hx: Social History Socioeconomic History Marital status: Tobacco Use Smoking status: Former Packs/day: .5 Types: Cigarettes Smokeless tobacco: Never Vaping Use Vaping Use: Never used Substance and Sexual Activity Alcohol use: Yes Comment: wine rarely Drug use: No MEDs: Previous Medications Medication Sig acetaminophen (TYLENOL ER) 650 MG CR tablet Take 2 (two) tablets (1,300 mg total) by mouth At NOON . atenoloL (TENORMIN) 25 MG tablet Take 1 (one) tablet (25 mg total) by mouth daily . diphenhydrAMINE-acetaminophe n (TYLENOL PM) 25-500 mg Tab Take 2 (two) tablets by mouth nightly . levothyroxine (SYNTHROID, LEVOTHROID) 112 MCG tablet Take 1 (one) tablet (112 mcg total) by mouth once daily . meloxicam (MOBIC) 7.5 MG tablet Take 1 (one) tablet to 2 (two) tablets (7.5-15 mg total) by mouth daily . traZODone (DESYREL) 50 MG tablet Take 1 (one) tablet (50 mg total) by mouth nightly . triamterene-hydrochlorothiaz rebeca (MAXZIDE) 75-50 mg per tablet Take 1 (one) tablet by mouth daily . gabapentin (NEURONTIN) 300 MG capsule Take 1 (one) capsule (300 mg total) by mouth every 12 (twelve) hours . LORazepam (ATIVAN) 0.5 MG tablet Take 1 (one) tablet (0.5 mg total) by mouth as needed . tiZANidine (ZANAFLEX) 2 MG tablet Take 1 Unspecified by mouth . traMADol (ULTRAM) 50 mg tablet Take 1 (one) tablet (50 mg total) by mouth as needed for pain . ALL: Allergies Allergen Reactions Nickel Hives and Rash Codeine Other (See Comments) ROS: Review of Systems Positives and pertinent negatives as per HPI. All other systems were reviewed and are negative. Physical Exam: Patient Vitals for the past 24 hrs: BP Temp Pulse Resp SpO2 11/25/23 1951 -- -- -- 18 -- 11/25/23 1852 112/67 -- 76 17 96 % 11/25/23 1716 (!) 175/86 -- 80 12 97 % 11/25/23 1630 (!) 171/93 -- 78 14 93 % 11/25/23 1624 -- -- 86 17 97 % 11/25/23 1558 -- -- 81 12 95 % 11/25/23 1534 (!) 206/192 -- 85 12 97 % 11/25/23 1524 -- -- 88 (!) 21 98 % 11/25/23 1519 -- -- 90 (!) 11 92 % 11/25/23 1514 -- -- 87 12 97 % 11/25/23 1509 -- -- 88 17 97 % 11/25/23 1504 -- -- 85 16 97 % 11/25/23 1501 (!) 205/85 -- -- -- -- 11/25/23 1459 -- -- 85 (!) 22 97 % 11/25/23 1454 -- -- 88 17 97 % 11/25/23 1449 -- -- 85 17 97 % 11/25/23 1444 -- -- 93 18 97 % 11/25/23 1440 (!) -- -- -- -- 11/25/23 144 (!) 98.1 degrees F (36.7 degrees C) 89 18 98 % 11/25/23 1439 -- -- 93 (!) 24 96 % Physical Exam Vitals and nursing note reviewed. Constitutional: Appearance: Normal appearance. She is well-developed. She is not toxic-appearing or diaphoretic. HENT: Head: Normocephalic and atraumatic. Nose: No nasal deformity. Eyes: General: Lids are normal. No scleral icterus. Neck: Comments: C-collar in place Cardiovascular: Rate and Rhythm: Normal rate and regular rhythm. Heart sounds: Normal heart sounds, S1 normal and S2 normal. No murmur heard. Musculoskeletal: General: Deformity present. Right shoulder: Normal. Left shoulder: Normal. Right upper arm: Normal. Left upper arm: Normal. Right elbow: Normal. Left elbow: Normal. Right forearm: Normal. Left forearm: Normal. Cervical back: Tenderness present. No spinous process tenderness or muscular tenderness. Thoracic back: Normal. Lumbar back: Normal. Right hip: Normal. Left hip: Normal. Right upper leg: Normal. Left upper leg: Normal. Right knee: Normal. Left knee: Normal. Right lower leg: Normal. No swelling. No edema. Left lower leg: Normal. No swelling. No edema. Comments: Deformity note (more content not included)... Normal [facility] Ethanol [Mass/Vol]Ordered By : Estella Willis on 11-25-2023 Interpretation and review of laboratory results Normal [facility] H AND Tigre 11-25-2023 H AND P -------- Attestation signed by Nayely Mae MD at 11/25/2023 5:50 PM === TRAUMA, CRITICAL CARE, AND ACUTE CARE SURGERY STAFF PHYSICIAN NOTE OF PERSONAL INVOLVEMENT IN CARE: Please link this note as an addendum to the LAVELLE note with the same day of service. The patient was seen and examined by me, the attending trauma surgeon, on multidisciplinary rounds on the date of service listed above. I have reviewed the LAVELLE note, labs, studies, and lead sales consultant notes. I have reviewed and agree with the documented history, exam, and plan of care, with the following additions and corrections: Christine Mays is a 78 y.o. female presenting as Category 2 trauma following mechanical fall from standing, negative loss of consciousness. On arrival GCS is 15, she is RRR with SBP in 200s. Patient has new onset of paresthesia of the left upper extremity with a deformity of the left shoulder and tenderness to palpation in this region. Patient also had abrasion of the left elbow and left side of her head. Patient also endorses some C-spine tenderness to palpation and chronic L spine TTP, L wrist TTP. Imaging in the trauma bay obtained with left humerus fracture. Obtained labs and imaging personally reviewed with evidence of L humerus fx, osteopenia, hypoK. Our plan for this patient will be admit to trauma. Ortho eval. All of the above listed fractures are fractures due to combination of osteopenia and trauma that alone would not have caused them. Will consult osteoporosis management and check Vit D. Replace k. Pt evaluated at bedside at 1441 on 11/25/23. Admitted with these risk variables:Electrolyte Disturbance: Hypokalemia and Alkalosis. Please see assessment and plan for further details. Dayday Mae MD, FACS, DABS, DABA Trauma, Acute Care Surgery, Surgical Critical Care, and Neurocritical Care === INDORE TRAUMA TRAUMA EVALUATION / HISTORY AND PHYSICAL Trauma: Admitted with these risk variables:Electrolyte Disturbance: Hypokalemia and Alkalosis. Please see assessment and plan for further details. INJURIES: Left displaced surgical neck of the proximal humerus Ecchymosis of left scalp Lateral neck strain, Left arm paresthesias ASSESSMENT & PLAN/ACTIVE MEDICAL PROBLEMS: Closed head injury - hit head, no LOC. CT H/C spine (p) Left humerus fx - discussed with ortho. Sling. Will admit for pain control. Left arm paresthesias - s/p fall likely related to humerus fx, ?brachial plexus injury. Given neck pain - will obtain MRI C spine. MECHANISM OF INJURY: LOC (yes/no?): no Anticoagulant / Anti-platelet Rx? (for what dx?): no Notification Time: 1437 Arrival To Bedside: 1438 Attending Arrival Time: 1440 CHIEF COMPLAINT: Fall HISTORY OF PRESENT ILLNESS / INJURY (HPI): Ms. Mays is a 78-year-old female with a past medical history of anxiety, degenerative disc disease who presented to the [place] ED as a level two trauma. She lost her balance falling onto her left side. She did hit her head, no LOC, and felt immediate pain to her left shoulder. Upon arrival she was hypertensive, small ecchymosis to left eyebrow and left shoulder pain with deformity. PAST MEDICAL HISTORY (PMH): Past Medical History: Diagnosis Date Anxiety Chronic back pain DDD (degenerative disc disease), lumbar Disease of thyroid gland Headache, tension-type Spinal stenosis Past Surgical History: Procedure Laterality Date BREAST REDUCTION CHOLECYSTECTOMY FOOT SURGERY Right HYSTERECTOMY PILONIDAL CYST TRIGGER FINGER RELEASE Left Social History Tobacco Use Smoking status: Former Packs/day: .5 Types: Cigarettes Smokeless tobacco: Never Vaping Use Vaping Use: Never used Substance Use Topics Alcohol use: Yes Comment: wine rarely Drug use: No Family History Problem Relation Age of Onset Heart disease Father Heart attack Sister Heart disease Brother Heart disease Brother Last Tetanus: unknown MEDICATIONS: No current facility-administered medications on file prior to encounter. Current Outpatient Medications on File Prior to Encounter Medication Sig Dispense Refill acetaminophen (TYLENOL) 500 MG tablet Take 1 (one) tablet (500 mg total) by mouth every 6 (six) hours as needed . atenoloL (TENORMIN) 25 MG tablet Take 1 (one) tablet (25 mg total) by mouth daily . gabapentin (NEURONTIN) 300 MG capsule Take 1 (one) capsule (300 mg total) by mouth every 12 (twelve) hours . levothyroxine (SYNTHROID, LEVOTHROID) 112 MCG tablet Take 1 (one) tablet (112 mcg total) by mouth once radha (more content not included)... Normal [facility] MR CERVICAL SPINE WITHOUT CO NTRASTon 11-25-2023 MR CERVICAL SPINE WITHOUT CONTRAST EXAMINATION: MR CERVICAL SPINE WITHOUT CONTRAST HISTORY: ORDERING SYSTEM PROVIDED HISTORY: left arm paresthesias and neck pain, TECHNOLOGIST PROVIDED HISTORY: Injury/Trauma Reason for exam: fall today, left arm paresthesias and neck pain Encounter Type: Initial Mechanism of injury: fall today ORDERING SYSTEM PROVIDED DIAGNOSIS CODES: S42.215A Closed nondisplaced fracture of surgical neck of left humerus, unspecified fracture morphology, initial encounter Z04.3 Encounter for post fall examination E87.6 Hypokalemia COMPARISON: None TECHNIQUE: MR cervical spine without contrast. FINDINGS: There is straightening of the cervical lordosis. Mild degenerative grade 1 anterolisthesis of C4 on C5. Slight degenerative retrolisthesis of C6 on C7 and C7 on T1 which likely contributes to straightening of lordosis. No acute subluxation. No dislocation. Vertebral body heights are maintained. Bone marrow signal is unremarkable. No prevertebral soft tissue swelling. The cervical spinal cord is normal in size and signal characteristics. Cerebellar tonsils are in normal location. Findings by level: C2-C3: Disc desiccation posterior ligamentum flavum hypertrophy. No central canal or neural foraminal narrowing. C3-C4: No disc herniation. No central canal or foraminal narrowing. C4-C5: Slight grade 1 anterolisthesis of C4 on C5 with more severe right facet arthropathy greater than left. Mild annular disc bulge. Mild posterior ligamentum flavum hypertrophy. No obvious central canal stenosis. No significant neural foraminal narrowing. C5-C6: Moderate to severe degenerative disc height loss mild disc bulge. No central canal stenosis. Mild bilateral foraminal narrowing. C6-C7: Moderate degenerative disc height loss. Posterior element hypertrophy. Mild canal narrowing. No significant neural foraminal narrowing. C7-T1: Moderate to severe degenerative disc height loss disc osteophyte bulge posterior ligament flavum hypertrophy. Moderate canal stenosis. Intraforaminal disc osteophyte changes result moderate right and mild left neural foraminal narrowing. There is mild disc bulging at T2-3 and T3-4 without significant central canal or neural foraminal narrowing. In the visualized upper thoracic spine, there is no disc herniation or central canal narrowing. IMPRESSION: 1. Multilevel degenerative disc disease with endplate hypertrophy. No significant canal stenosis. 2. Neural foraminal narrowing at several levels mostly C5-6 through C7-T1. See details above. 3. Slight grade 1 anterolisthesis of C4 on C5; slight degenerative retrolisthesis of C6 on C7 and C7 on T1. Choose straightening of lordosis. Workstation ID: [id number] Dictated by: CASEY FELICIANO on FriNovember 26, 2023 1:57:44 AM EDT Transcribed by: CASEY FELICIANO on FriNovember 26, 2023 1:57:44 AM EDT Finalized by: CASEY FELICIANO on FriNovember 26, 2023 1:57:44 AM EDT [facility] Comment on above: Order Comment: Injur y/Trauma or Illness?:Injury/TraumaHow long have you had these symptoms (acute/chronic)?:AcuteReason for exam?:fall today, left arm paresthesias and neck painType of Exam?:InitialMechanism of injury?:fall today MR Cervical spine WO contras ton 11-25-2023 Radiology Study observation (narrative) [facility] MRSA DNA AMPLIFIED PROBEon 0 11-25-2023 MRSA DNA AMPLIFIED PROBE Negative Normal Not Detected, MRSA NEGATIVE [facility] Comment on above: Performed By: #### [id number] ####[facility] [address] [place], [place] [address] Tanvir Haile M.D. [id number] MRSA DNA Amplified ProbeOrde red By: Bhumi Dubois on 11-25-2023 MRSA DNA COBY+probe Ql (Unsp spec) Negative Not Detected, MRSA NEGATIVE [facility] MRSA DNA COBY+probe Ql (Unsp spec)Ordered By: Bhumi Dubois on 11-25-2023 Interpretation and review of laboratory results Normal [facility] No Panel Informationon 11-24 1. No acute intracranial process. 2. 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 3. Remote right cerebellar game moderator infarct. 4. No acute fracture or malalignment of the cervical spine. Workstation ID: [id number] Vpon EXAMINATION: CT HEAD OR BRAIN WITHOUT CONTRAST; CT CERVICAL SPINE WITHOUT CONTRAST HISTORY: fall head trauma Injury/Trauma or Illness?:Injury/Trauma How long have you had these symptoms (acute/chronic)?:Acute Reason for exam?:fall, head trauma Type of Exam?:Initial Mechanism of injury?:mechanical fall from standing. Hit head on ground and has neck pain. C-Collar in place on arrival. Pt also complains of severe left shoulder pain from fall. ; trauma neck pain Injury/Trauma or Illness?:Injury/Trauma How long have you had these symptoms (acute/chronic)?:Acute Reason for exam?:neck pain Type of Exam?:Initial Mechanism of injury?:mechanical fall from standing. Hit head on ground and has neck pain. C-Collar in place on arrival. Pt also complains of severe left shoulder pain from fall. COMPARISON: Cervical spine radiograph 09/30/2017 TECHNIQUE: Axial noncontrast CT imaging of the head and cervical spine was performed with coronal and sagittal reformats. Dose reduction techniques were achieved by using automated exposure control and/or adjustment of mA and/or kV according to patient size and/or use of iterative reconstruction technique. FINDINGS: CT head Calvarium/skull base: No evidence of acute fracture or destructive lesion.Mastoids and middle ears demonstrate no substantial mucosal disease. Bilateral telida ocular lens replacements. Paranasal sinuses:No air fluid levels. Brain: No acute intracranial hemorrhage. No acute large vascular territory infarct. Calcified right anterior parietal convexity dural-based mass with mild periosteal reaction involving the underlying calvarium. This is favored to relate to a calcified meningioma given the appearance measuring approximately 8 x 8 x 5 mm (transverse, AP, craniocaudal).Minimal parenchymal volume loss. Remote right cerebellar game moderator infarct. Probable prominent perivascular space involving the inferior right lentiform nucleus. No hydrocephalus. CT cervical spine Alignment: Straightening of the normal cervical lordosis. Trace anterolisthesis of C4 on C5 favored degenerative in nature. Vertebrae: No acute fracture. Vertebral body heights are maintained. Craniocervical junction: No focal abnormality. Degenerative changes: Moderate to advanced degenerative change greater involving the mid and lower cervical spine with advanced disc height loss, sclerotic degenerative endplate change and osteophytic spurring. Multilevel moderate uncovertebral and facet arthropathy is present with multilevel at least dbyi-zn-yitftcyh canal stenosis and mild foraminal stenosis. Additional comments: Atherosclerotic changes are noted with retropharyngeal course of the bilateral common and internal carotid arteries. Visualized portion of upper lungs are clear. [employer] Kira Lal, DO - 11/25/2023 EXAMINATION: CT HEAD OR BRAIN WITHOUT CONTRAST; CT CERVICAL SPINE WITHOUT CONTRAST HISTORY: fall head trauma Injury/Trauma or Illness?:Injury/Trauma How long have you had these symptoms (acute/chronic)?:Acute Reason for exam?:fall, head trauma Type of Exam?:Initial Mechanism of injury?:mechanical fall from standing. Hit head on ground and has neck pain. C-Collar in place on arrival. Pt also complains of severe left shoulder pain from fall. ; trauma neck pain Injury/Trauma or Illness?:Injury/Trauma How long have you had these symptoms (acute/chronic)?:Acute Reason for exam?:neck pain Type of Exam?:Initial Mechanism of injury?:mechanical fall from standing. Hit head on ground and has neck pain. C-Collar in place on arrival. Pt also complains of severe left shoulder pain from fall. COMPARISON: Cervical spine radiograph 09/30/2017 TECHNIQUE: Axial noncontrast CT imaging of the head and cervical spine was performed with coronal and sagittal reformats. Dose reduction techniques were achieved by using automated exposure control and/or adjustment of mA and/or kV according to patient size and/or use of iterative reconstruction technique. FINDINGS: CT head Calvarium/skull base: No evidence of acute fracture or destructive lesion.Mastoids and middle ears demonstrate no substantial mucosal disease. Bilateral telida ocular lens replacements. Paranasal sinuses:No air fluid levels. Brain: No acute intracranial hemorrhage. No acute large vascular territory infarct. Calcified right anterior parietal convexity dural-based mass with mild periosteal reaction involving the underlying calvarium. This is favored to relate to a calcified meningioma given the appearance measuring approximately 8 x 8 x 5 mm (transverse, AP, craniocaudal).Minimal parenchymal volume loss. Remote right cerebellar game moderator infarct. Probable prominent perivascular space involving the inferior right lentiform nucleus. No hydrocephalus. CT cervical spine Alignment: Straightening of the normal cervical lordosis. Trace anterolisthesis of C4 on C5 favored degenerative in nature. Vertebrae: No acute fracture. Vertebral body heights are maintained. Craniocervical junction: No focal abnormality. Degenerative changes: Moderate to advanced degenerative change greater involving the mid and lower cervical spine with advanced disc height loss, sclerotic degenerative endplate change and osteophytic spurring. Multilevel moderate uncovertebral and facet arthropathy is present with multilevel at least weur-qh-alwovdbv canal stenosis and mild foraminal stenosis. Additional comments: Atherosclerotic changes are noted with retropharyngeal course of the bilateral common and internal carotid arteries. Visualized portion of upper lungs are clear. IMPRESSION: 1. No acute intracranial process. 2. 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 3. Remote right cerebellar game moderator infarct. 4. No acute fracture or malalignment of the cervical spine. Workstation ID: [id number] [facility] No Panel InformationOrdered By: Paige Collins on 11-25-2023 [facility] Work Phone: POC VENOUS BLOOD GAS PANEL-Jon Alejandre 11-25-2023 BASE EXCESS, VENOUS 6.0 High -2.0-2.0 [facility] CALCIUM IONIZED 4.7 mg/dL Normal 4.5-5.3 [facility] CARBOXYHEMOGLOBIN 1.8 % of total Hb High <=1.5 [facility] Comment on above: Result Comment: Refe rence Ranges: [place] Non-smokers: <1.5% Smokers: 1.5-5.0% Heavy Smokers: 5.0-9.0% Chloride [Moles/Vol] 98 mmol/L Normal 98-108 [facility] FIO2 21 Normal [facility] Glucose [Mass/Vol] 106 mg/dL High 65-99 [facility] HCO3 (Bld) [Moles/Vol] 29.5 mmol/L High 24.0-28.0 [facility] Hematocrit (Bld) [Volume fraction] 41.5 % Normal 36.0-46.0 [facility] Hemoglobin (Bld) [Mass/Vol] 13.5 g/dL Normal 12.0-16.0 [facility] LACTIC ACID, WHOLE BLOOD 1.8 mmol/L Normal 0.6-2.0 [facility] METHEMOGLOBIN < Normal 0.0-2.0 [facility] O2HB 78.6 % Normal No established reference range [facility] Oxygen saturation in Blood 80.5 % High 40.0-70.0 [facility] PCO2 VENOUS 37.6 mm Hg Low 41.0-51.0 [facility] PH VENOUS 7.50 High 7.32-7.42 [facility] PO2 VENOUS 39 mm Hg Normal 25-40 [facility] Potassium [Moles/Vol] 3.4 mmol/L Low 3.5-5.1 [facility] Sodium [Moles/Vol] 136 mmol/L Normal 135-145 [facility] SPECIMEN SOURCE RADIANCE Not specified Normal [facility] POC Venous Blood Gas Panel-P [facility] 11-25-2023 Base excess Calc (BldV) [Moles/Vol] 6.0 mmol/L High -2.0 - 2.0 [facility] Calcium.ionized [Mass/Vol] 4.7 mg/dL 4.5 - 5.3 mg/dL [facility] Carboxyhemoglobin (BldA) [Mass fraction] 1.8 High [facility] MARYVALEF [facility] Comment on above: [facility] Non-smokers: <1.5% Smokers: 1.5-5.0% Heavy Smokers: 5.0-9.0% CO2 (BldV) [Partial pressure] 37.6 mm[Hg] Low [facility] Glucose post fast [Mass/Vol] 106 mg/dL High 65 - 99 mg/dL [facility] Hematocrit (BldA) [Volume fraction] 41.5 % 36.0 - 46.0 % [facility] Inhaled oxygen concentration 21 % [facility] Interpretation and review of laboratory results Abnormal [facility] Lactate [Moles/Vol] 1.8 mmol/L 0.6 - 2. 0 mmol/L [facility] Methemoglobin (BldA) [Mass fraction] % 0.0 - 2.0 % [facility] Oxygen (BldV) [Partial pressure] 39 mm[Hg] [facility] Oxygen saturation in Venous blood 80.5 % High 40.0 - 70.0 % [facility] Oxyhemoglobin (BldA) [Mass fraction] 78.6 % No established reference range [facility] pH (BldV) 7.50 [pH] High 7.32 - 7.42 [facility] Specimen source Nom (Unsp spec) Not specified [facility] TYPE AND SCREENon 11-25-2023 TYPE AND SCREEN ABORH: O Positive AB SCREEN: Negative EXPIRATION DATE: 11/28/2023 23:59 EST Normal [facility] XR CHEST PA/APon 11-25-2023 XR CHEST PA/AP EXAMINATION: XR CHEST PA/AP 11/25/2023 3:08 pm HISTORY: ORDERING SYSTEM PROVIDED HISTORY: Trauma Category 2, TECHNOLOGIST PROVIDED HISTORY: Injury/Trauma Reason for exam: fall Cancer History: u Surgery, RadiationHistory: left bunionectomy Encounter Type: Initial Mechanism of injury: fall, mechanical fall from standing ORDERING SYSTEM PROVIDED DIAGNOSIS CODES: COMPARISON: None FINDINGS: Heart size is mildly prominent. There is mild calcified plaquing of the aortic arch. Trachea is midline. Mediastinum is not widened. The lungs are clear and well aerated. No effusion or nodule or pneumothorax is noted. There is an impacted displaced fracture of the left humeral head and neck region. Postsurgical changes are partially noted of the lumbar spine. IMPRESSION: 1. Fracture of the proximal left humerus, please see the report on the left shoulder. 2. The lungs are clear with slight chronic changes. 3. Mild cardiomegaly. Workstation ID: [id number] Dictated by: KHUSHBU RAMOS on FriNovember 25, 2023 3:23:43 PM EDT Transcribed by: KHUSHBU RAMOS on FriNovember 25, 2023 3:23:43 PM EDT Finalized by: KHUSHBU RAMOS on FriNovember 25, 2023 3:23:43 PM EDT [facility] Comment on above: Order Comment: Injur y/Trauma or Illness?:Injury/TraumaHow long have you had these symptoms (acute/chronic)?:AcuteReason for exam?:fallHistory of cancer?:uSurgeries, chemotherapy, or radiation?:left bunionectomyType of Exam?:InitialMechanism of injury?:fall, mechanical fall from standing XR Chest PA and Abdomen APon 11-25-2023 1. Fracture of the proximal left humerus, please see the report on the left shoulder. 2. The lungs are clear with slight chronic changes. 3. Mild cardiomegaly. Workstation ID: [id number] Vpon EXAMINATION: XR CHEST PA/AP 11/25/2023 3:08 pm HISTORY: ORDERING SYSTEM PROVIDED HISTORY: Trauma Category 2, TECHNOLOGIST PROVIDED HISTORY: Injury/Trauma Reason for exam: fall Cancer History: u Surgery, RadiationHistory: left bunionectomy Encounter Type: Initial Mechanism of injury: fall, mechanical fall from standing ORDERING SYSTEM PROVIDED DIAGNOSIS CODES: COMPARISON: None FINDINGS: Heart size is mildly prominent. There is mild calcified plaquing of the aortic arch. Trachea is midline. Mediastinum is not widened. The lungs are clear and well aerated. No effusion or nodule or pneumothorax is noted. There is an impacted displaced fracture of the left humeral head and neck region. Postsurgical changes are partially noted of the lumbar spine. [facility] Khushbu Ramos, DO - 11/25/2023 EXAMINATION: XR CHEST PA/AP 11/25/2023 3:08 pm HISTORY: ORDERING SYSTEM PROVIDED HISTORY: Trauma Category 2, TECHNOLOGIST PROVIDED HISTORY: Injury/Trauma Reason for exam: fall Cancer History: u Surgery, RadiationHistory: left bunionectomy Encounter Type: Initial Mechanism of injury: fall, mechanical fall from standing ORDERING SYSTEM PROVIDED DIAGNOSIS CODES: COMPARISON: None FINDINGS: Heart size is mildly prominent. There is mild calcified plaquing of the aortic arch. Trachea is midline. Mediastinum is not widened. The lungs are clear and well aerated. No effusion or nodule or pneumothorax is noted. There is an impacted displaced fracture of the left humeral head and neck region. Postsurgical changes are partially noted of the lumbar spine. IMPRESSION: 1. Fracture of the proximal left humerus, please see the report on the left shoulder. 2. The lungs are clear with slight chronic changes. 3. Mild cardiomegaly. Workstation ID: [id number] [facility] Radiology Study observation (narrative) [facility] XR Chest PA and Abdomen APOr dered By: Khushbu Ramos on 11-25-2023 [facility] Work Phone: XR PELVIS 1 VIEW (STANDARD)o n 11-25-2023 XR PELVIS 1 VIEW (STANDARD) EXAMINATION: XR PELVIS 1 VIEW (STANDARD) HISTORY: ORDERING SYSTEM PROVIDED HISTORY: Trauma Category 2. TECHNOLOGIST PROVIDED HISTORY: Injury/Trauma. Reason for exam: Fall. Cancer History: U. Surgery, Radiation History: Left bunionectomy. Encounter Type: Initial. Mechanism of injury: Fall, mechanical fall from standing. COMPARISON: None. FINDINGS: Single supine image is submitted. Bony pelvis is intact. Patient is osteopenic. The SI joints are symmetric. Sacrum, coccyx, iliac crests, pubic rami and pubic symphysis are normal. The proximal femurs are intact with bilateral qcgt-flcytlw-dyyv-right acetabular osteoarthritis. No soft tissue injury. Prior lower lumbar spine fusion partially imaged. A 3.0 cm long metallic density wire overlies the lower pelvis. IMPRESSION: 1. No acute osseous injury with normal alignment. 2. 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 3. 3.0 cm long metallic density wire projecting over the lower pelvis. This finding may be external to the patient. VKR/pji Workstation ID: [id number] Dictated by: KATE FOX on FriNovember 25, 2023 3:25:14 PM EDT Transcribed by: JIE MATOS on FriNovember 25, 2023 3:31:42 PM EDT Finalized by: KATE FOX on FriNovember 26, 2023 9:10:20 AM EDT Normal [facility] Comment on above: Order Comment: Injur y/Trauma or Illness?:Injury/TraumaHow long have you had these symptoms (acute/chronic)?:AcuteReason for exam?:fallHistory of cancer?:uSurgeries, chemotherapy, or radiation?:left bunionectomyType of Exam?:InitialMechanism of injury?:Fall, mechanical fall from standing XR Pelvis 1 or 2 Viewson Radiology Study observation (narrative) [facility] XR SHOULDER LEFT 1 VIEWon XR SHOULDER LEFT 1 VIEW EXAMINATION: XR SHOULDER LEFT 1 VIEW HISTORY: Injury/Trauma or Illness?:Injury/Trauma How long have you had these symptoms (acute/chronic)?:AcuteFall, trauma COMPARISON: None. TECHNIQUE: 1 views of the left shoulder. FINDINGS: BONE DENSITY: Normal. JOINTS: No acute abnormality. FRACTURE: There is displaced, mildly comminuted fracture of the surgical neck of the humerus. DISLOCATION: None. SOFT TISSUES: No radiopaque foreign body. IMPRESSION: Acute displaced fracture of the proximal humerus. Workstation ID: [id number] Dictated by: TOM ZARAGOZA on FriNovember 25, 2023 3:32:45 PM EDT Transcribed by: TOM ZARAGOZA on FriNovember 25, 2023 3:32:45 PM EDT Finalized by: TOM ZARAGOZA on FriNovember 25, 2023 3:32:45 PM EDT Normal [facility] Comment on above: Order Comment: Injur y/Trauma or Illness?:Injury/TraumaHow long have you had these symptoms (acute/chronic)?:AcuteReason for exam?:fallHistory of cancer?:uSurgeries, chemotherapy, or radiation?:left bunionectomyType of Exam?:InitialMechanism of injury?:fall, complains of severe left shoulder pain from fall. XR Shoulder - left Single vi ewon 11-25-2023 Acute displaced fracture of the proximal humerus. Workstation ID: [id number] Vpon EXAMINATION: XR SHOULDER LEFT 1 VIEW HISTORY: Injury/Trauma or Illness?:Injury/Trauma How long have you had these symptoms (acute/chronic)?:AcuteFall, trauma COMPARISON: None. TECHNIQUE: 1 views of the left shoulder. FINDINGS: BONE DENSITY: Normal. JOINTS: No acute abnormality. FRACTURE: There is displaced, mildly comminuted fracture of the surgical neck of the humerus. DISLOCATION: None. SOFT TISSUES: No radiopaque foreign body. Vpon Tom Zaragoza MD - EXAMINATION: XR SHOULDER LEFT 1 VIEW HISTORY: Injury/Trauma or Illness?:Injury/Trauma How long have you had these symptoms (acute/chronic)?:AcuteFall, trauma COMPARISON: None. TECHNIQUE: 1 views of the left shoulder. FINDINGS: BONE DENSITY: Normal. JOINTS: No acute abnormality. FRACTURE: There is displaced, mildly comminuted fracture of the surgical neck of the humerus. DISLOCATION: None. SOFT TISSUES: No radiopaque foreign body. IMPRESSION: Acute displaced fracture of the proximal humerus. Workstation ID: [id number] [facility] Radiology Study observation (narrative) [facility] XR Shoulder - left Single vi ewOrdered By: Tom Zaragoza on 11-25-2023 [facility] Work Phone: XR WRIST LEFT 3+ VIEWS (MERA INDU)on 11-25-2023 XR WRIST LEFT 3+ VIEWS (STANDARD) EXAMINATION: XR WRIST LEFT 3+ VIEWS (STANDARD) 11/25/2023 3:08 pm HISTORY: trauma pain Injury/Trauma or Illness?:Injury/Trauma How long have you had these symptoms (acute/chronic)?:Acute Reason for exam?:fall History of cancer?:u Surgeries, chemotherapy, or radiation?:left bunionectomy COMPARISON: None TECHNIQUE: PA, oblique, lateral FINDINGS: Multifocal degenerative changes are noted, greatest at the scaphoid trapezial and 1st carpometacarpal joint. There is prominent chondrocalcinosis involving the TFCC. The bones are diffusely osteopenic. No definite acute fractures are identified. IMPRESSION: No definite acute fractures are identified. Degenerative changes. Workstation ID: [id number] Dictated by: AISSATOU IBRAHIM on FriNovember 25, 2023 3:31:41 PM EDT Transcribed by: AISSATOU IBRAHIM on FriNovember 25, 2023 3:31:41 PM EDT Finalized by: AISSATOU IBRAHIM on FriNovember 25, 2023 3:31:41 PM EDT Normal [facility] Comment on above: Order Comment: Injur y/Trauma or Illness?:Injury/TraumaHow long have you had these symptoms (acute/chronic)?:AcuteReason for exam?:fallHistory of cancer?:uSurgeries, chemotherapy, or radiation?:left bunionectomyType of Exam?:InitialMechanism of injury?:fall, mechanical fall from standing XR Wrist - left 3 Viewson No definite acute fractures are identified. Degenerative changes. Workstation ID: [id number] GE RIS EXAMINATION: XR WRIST LEFT 3+ VIEWS (STANDARD) 11/25/2023 3:08 pm HISTORY: trauma pain Injury/Trauma or Illness?:Injury/Trauma How long have you had these symptoms (acute/chronic)?:Acute Reason for exam?:fall History of cancer?:u Surgeries, chemotherapy, or radiation?:left bunionectomy COMPARISON: None TECHNIQUE: PA, oblique, lateral FINDINGS: Multifocal degenerative changes are noted, greatest at the scaphoid trapezial and 1st carpometacarpal joint. There is prominent chondrocalcinosis involving the TFCC. The bones are diffusely osteopenic. No definite acute fractures are identified. Aissatou Duenas M D - 11/25/2023 EXAMINATION: XR WRIST LEFT 3+ VIEWS (STANDARD) 11/25/2023 3:08 pm HISTORY: trauma pain Injury/Trauma or Illness?:Injury/Trauma How long have you had these symptoms (acute/chronic)?:Acute Reason for exam?:fall History of cancer?:u Surgeries, chemotherapy, or radiation?:left bunionectomy COMPARISON: None TECHNIQUE: PA, oblique, lateral FINDINGS: Multifocal degenerative changes are noted, greatest at the scaphoid trapezial and 1st carpometacarpal joint. There is prominent chondrocalcinosis involving the TFCC. The bones are diffusely osteopenic. No definite acute fractures are identified. IMPRESSION: No definite acute fractures are identified. Degenerative changes. Workstation ID: [id number] [facility] Radiology Study observation (narrative) [facility] XR Wrist - left 3 ViewsOrder ed By: Aissatou Ibrahim on 11-25-2023 [facility] Work Phone: No Panel Informationon 10-28 Lily applied tubigr ip and boot [facility] XR FOOT LEFT 3+ VIEWS (STAND VALDEMAR)on 10-29-2023 XR FOOT LEFT 3+ VIEWS (STANDARD) No fractures dislocation or subluxation seen. Mild plantar calcaneal enthesophyte. Dictated by: KENNEDY ULRICH on FriOct 29, 2023 4:03:52 PM EDT Transcribed by: KENNEDY ULRICH on FriOct 29, 2023 4:03:52 PM EDT Finalized by: KENNEDY ULRICH on FriOct 29, 2023 4:03:52 PM EDT Normal [facility] Comment on above: Order Comment: Injur y/Trauma or Illness?:Illness/Other How long have you had these symptoms (acute/chronic)?:Acute Reason for exam?:pain History of cancer?:u Surgeries, chemotherapy, or radiation?:left bunionectomy Type of Exam?:Initial Additional signs and symptoms?:hardware Basic metabolic 2000 panelon 07-25-2023 Anion gap [Moles/Vol] 9 mmol/L Low 10-20 [facility] Comment on above: Performed By: #### 2 4321-2 #### JOY GUTIERREZ ([id number]) [facility] ([facility]) [facility] [place] [address] Calcium [Mass/Vol] 9.6 mg/dL Normal 8.6-10.3 [facility] Comment on above: Performed By: #### 2 4321-2 #### JOY GUTIERREZ ([id number]) [facility] ([facility]) [address] [place] [address] 05001 Chloride [Moles/Vol] 99 mmol/L Normal 98-107 [facility] Comment on above: Performed By: #### 2 4321-2 #### JOY GUTIERREZ ([id number]) [facility] ([facility]) [address] [place] [address] 39569 CO2 [Moles/Vol] 30 mmol/L Normal 21-32 [facility] Comment on above: Performed By: #### 2 4321-2 #### JOY GUTIERREZ ([id number]) [facility] ([facility]) [address] [place] [address] 00161 Creatinine [Mass/Vol] 0.68 mg/dL Normal 0.50-1.05 [facility] Comment on above: Performed By: #### 2 4321-2 #### JOY GUTIERREZ ([id number]) [facility] ([facility]) [address] [place] [address] 98667 GFR/1.73 sq M.predicted MDRD (S/P/Bld) [Vol rate/Area] 88 mL/min/1.73m*2 Normal >60 [facility] Comment on above: Result Comment: Calc ulations of estimated GFR are performed using the 2020 CKD-EPI Study Refit equation without the race variable for the IDMS-Traceable creatinine methods. https://jasn.asnjournals.org/content//ASN.73961768 88 Performed By: #### 2 4321-2 #### JOY GUTIERREZ ([id number]) [facility] ([facility]) [address] [place] [address] 77200 Glucose [Mass/Vol] 89 mg/dL Normal 74-99 [facility] Comment on above: Performed By: #### 2 4321-2 #### JOY GUTIERREZ ([id number]) [facility] ([facility]) [address] [place] [address] 51087 Potassium [Moles/Vol] 4.3 mmol/L Normal 3.5-5.3 [facility] Comment on above: Performed By: #### 2 4321-2 #### JOY GUTIERREZ ([id number]) [facility] ([facility]) [address] [place] [address] 26061 Sodium [Moles/Vol] 134 mmol/L Low 136-145 [facility] Comment on above: Performed By: #### 2 4321-2 #### JOY GUTIERREZ ([id number]) [facility] ([facility]) [address] [place] [address] 97976 Urea nitrogen [Mass/Vol] 20 mg/dL Normal 6-23 [facility] Comment on above: Performed By: #### 2 4321-2 #### JOY GUTIERREZ ([id number]) [facility] ([facility]) [address] [place] [address] 08847 Hemoglobin and Hematocrit pa hermse (Bld)on 07-04-2023 Hematocrit (Bld) [Volume fraction] 38.4 % 36.0 - 46.0 % [facility] Hemoglobin (Bld) [Mass/Vol] 12.5 g/dL 12.0 - 16.0 g/dL [facility] Interpretation and review of laboratory results Normal [facility] XR LUMBAR SPINE 2-3 VIEWSon 06-19-2023 XR LUMBAR SPINE 2-3 VIEWS Interpreted By: Wilfredo Galloway, STUDY: XR LUMBAR SPINE 2-3 VIEWS; ; 06/19/2023 2:33 pm INDICATION: Signs/Symptoms:back pain. COMPARISON: 10/18/2021 ACCESSION NUMBER(S): [id number] ORDERING CLINICIAN: KYLER WETZEL FINDINGS: Lumbar spine, three views There is moderate levocurvature of the lumbar spine. There is laminectomy and posterior fusion L3-L5 with intact hardware. Mild anterolisthesis of L3 on L4 and of L4 on L5. There is moderate multilevel disc space narrowing with osteophytosis throughout the lumbar spine worse at L5-S1. No fracture seen. Vascular calcifications present. IMPRESSION: No hardware failure about the L3-L5 posterior fusion Moderate multilevel spondylosis worse at L5-S1 MACRO: None Signed by: Wilfredo Galloway 06/20/2023 6:41 PM Dictation workstation: [id number] [facility] Basic metabolic 2000 panelon 04-21-2023 Anion gap [Moles/Vol] 9 mmol/L Low 10 - 20 mmol/L [facility] Calcium [Mass/Vol] 9.2 mg/dL 8.6 - 10. 3 mg/dL [facility] Chloride [Moles/Vol] 98 mmol/L 98 - 107 mmol/L [facility] CO2 [Moles/Vol] 30 mmol/L 21 - 32 mmol/L [facility] Creatinine [Mass/Vol] 0.50 mg/dL 0.50 - 1.05 mg/dL [facility] GFR/1.73 sq M.predicted MDRD (S/P/Bld) [Vol rate/Area] - PINF [facility] Comment on above: Calculations of gayle mated GFR are performed using the 2020 CKD-EPI Study Refit equation without the race variable for the IDMS-Traceable Creatinine Methods. https://jasn.asnjournals.org/content//ASN.33148725 88 Glucose [Mass/Vol] 93 mg/dL 74 - 99 mg/dL [facility] Interpretation and review of laboratory results Abnormal [facility] Potassium [Moles/Vol] 4.0 mmol/L 3.5 - 5.3 mmol/L [facility] Sodium [Moles/Vol] 133 mmol/L Low 136 - 145 mmol/L [facility] Urea nitrogen [Mass/Vol] 11 mg/dL 6 - 23 mg/dL [facility] Anion gap [Moles/Vol] 9 mmol/L Low 10-20 [facility] Comment on above: Performed By: #### 2 4321-2 #### JOY GUTIERREZ ([id number]) [facility] ([facility]) [address] [place] [address] 35713 Calcium [Mass/Vol] 9.2 mg/dL Normal 8.6-10.3 [facility] Comment on above: Performed By: #### 2 4321-2 #### JOY GUTIERREZ ([id number]) [facility] ([facility]) [address] [place] [address] 98097 Chloride [Moles/Vol] 98 mmol/L Normal 98-107 [facility] Comment on above: Performed By: #### 2 4321-2 #### JOY GUTIERREZ ([id number]) [facility] ([facility]) [address] [place] [address] CO2 [Moles/Vol] 30 mmol/L Normal 21-32 [facility] Comment on above: Performed By: #### 2 4321-2 #### JOY GUTIERREZ ([id number]) [facility] ([facility]) [facility] [place] [address] Creatinine [Mass/Vol] 0.50 mg/dL Normal 0.50-1.05 [facility] Comment on above: Performed By: #### 2 4321-2 #### JOY GUTIERREZ ([id number]) [facility] ([facility]) [address] [place] [address] 61578 GFR/1.73 sq M.predicted MDRD (S/P/Bld) [Vol rate/Area] mL/min/{1.73_m2} Normal >60 [facility] Comment on above: Result Comment: Calc ulations of estimated GFR are performed using the 2020 CKD-EPI Study Refit equation without the race variable for the IDMS-Traceable Creatinine Methods. https://jasn.asnjournals.org/content//ASN.63768928 88 Performed By: #### 2 4321-2 #### JOY GUTIERREZ ([id number]) [facility] ([facility]) [address] [place] [address] 41743 Glucose [Mass/Vol] 93 mg/dL Normal 74-99 [facility] Comment on above: Performed By: #### 2 4321-2 #### JOY GUTIERREZ ([id number]) [facility] ([facility]) [address] [place] [address] 99055 Potassium [Moles/Vol] 4.0 mmol/L Normal 3.5-5.3 [facility] Comment on above: Performed By: #### 2 4321-2 #### JOY GUTIERREZ ([id number]) [facility] ([facility]) [address] [place] [address] 42851 Sodium [Moles/Vol] 133 mmol/L Low 136-145 [facility] Comment on above: Performed By: #### 2 4321-2 #### JOY GUTIERREZ ([id number]) [facility] ([facility]) [address] [place] [address] 82731 Urea nitrogen [Mass/Vol] 11 mg/dL Normal 6-23 [facility] Comment on above: Performed By: #### 2 4321-2 #### JOY GUTIERREZ ([id number]) [facility] ([facility]) [address] [place] [address] 96672 CBC panel Auto (Bld)on 04-21 Erythrocyte distribution width (RBC) [Ratio] 12.4 % 11.5 - 14.5 % [facility] Hematocrit (Bld) [Volume fraction] 28.3 % Low 36.0 - 46.0 % [facility] Hemoglobin (Bld) [Mass/Vol] 9.2 g/dL Low 12.0 - 16.0 g/dL [facility] Interpretation and review of laboratory results Abnormal [facility] MCH (RBC) [Entitic mass] 32.4 pg 26.0 - 34.0 pg [facility] MCHC (RBC) [Mass/Vol] 32.5 g/dL 32.0 - 36.0 g/dL [facility] MCV (RBC) [Entitic vol] 100 fL 80 - 100 fL [facility] Nucleated RBC/100 WBC (Bld) [Ratio] 0.0 % [facility] Platelet mean volume (Bld) [Entitic vol] 8.2 fL 7.5 - 11.5 fL [facility] Platelets (Bld) [#/Vol] 376 10*3/uL [facility] RBC (Bld) [#/Vol] 2.84 10*6/uL Low [facility] WBC (Bld) [#/Vol] 8.0 10*3/uL [facility] Erythrocyte distribution width (RBC) [Ratio] 12.4 % Normal 11.5-14.5 [facility] Comment on above: Performed By: #### 5 8410-2 #### JOY GUTIERREZ ([id number]) [facility] ([facility]) [address] [place] [address] 65668 Hematocrit (Bld) [Volume fraction] 28.3 % Low 36.0-46.0 [facility] Comment on above: Performed By: #### 5 8410-2 #### JOY GUTIERREZ ([id number]) [facility] ([facility]) [address] [place] [address] 95840 Hemoglobin (Bld) [Mass/Vol] 9.2 g/dL Low 12.0-16.0 [facility] Comment on above: Performed By: #### 5 8410-2 #### JOY GUTIERREZ ([id number]) [facility] ([facility]) [address] [place] [address] 53726 MCH (RBC) [Entitic mass] 32.4 pg Normal 26.0-34.0 [facility] Comment on above: Performed By: #### 5 8410-2 #### JOY GUTIERREZ ([id number]) [facility] ([facility]) [address] [place] [address] 34615 MCHC (RBC) [Mass/Vol] 32.5 g/dL Normal 32.0-36.0 [facility] Comment on above: Performed By: #### 5 8410-2 #### JOY GUTIERREZ ([id number]) [facility] ([facility]) [address] [place] [address] 85587 MCV (RBC) [Entitic vol] 100 fL Normal 80-100 [facility] Comment on above: Performed By: #### 5 8410-2 #### JOY GUTIERREZ ([id number]) [facility] ([facility]) [address] [place] [address] 82157 Nucleated RBC/100 WBC (Bld) [Ratio] 0.0 /100 WBCs Normal 0.0-0.0 [facility] Comment on above: Performed By: #### 5 8410-2 #### JOY GUTIERREZ ([id number]) [facility] ([facility]) [address] [place] [address] 56992 Platelet mean volume (Bld) [Entitic vol] 8.2 fL Normal 7.5-11.5 [facility] Comment on above: Performed By: #### 5 8410-2 #### JOY GUTIERREZ ([id number]) [facility] ([facility]) [address] [place] [address] 18378 Platelets (Bld) [#/Vol] 376 x10*3/uL Normal 150-450 [facility] Comment on above: Performed By: #### 5 8410-2 #### JOY GUTIERREZ ([id number]) [facility] ([facility]) [address] [place] [address] 10925 RBC (Bld) [#/Vol] 2.84 x10*6/uL Low 4.00-5.20 [facility] Comment on above: Performed By: #### 5 8410-2 #### JOY GUTIERREZ ([id number]) [facility] ([facility]) [address] [place] [address] 98097 WBC (Bld) [#/Vol] 8.0 x10*3/uL Normal 4.4-11.3 [facility] Comment on above: Performed By: #### 5 8410-2 #### JOY GUTIERREZ ([id number]) [facility] ([facility]) [address] [place] [address] 52039 Laboratory - Chemistry and C hemistry - challengeon 04-21-2023 Phosphate [Mass/Vol] 3.2 mg/dL 2.5 - 4.9 mg/dL [facility] Comment on above: The performance rose marie acteristics of phosphorus testing in heparinized plasma have been validated by the individual laboratory site where testing is performed. Testing on heparinized plasma is not approved by the FDA; however, such approval is not necessary. Magnesium [Mass/Vol] 1.72 mg/dL 1.60 - 2.40 mg/dL [facility] Magnesiumon 04-21-2023 Magnesium [Mass/Vol] 1.72 mg/dL Normal 1.60-2.40 [facility] Comment on above: Performed By: #### 1 9123-9 #### JOY GUTIERREZ ([id number]) [facility] ([facility]) [address] [place] [address] 13899 Magnesium [Mass/Vol]on 04-21 Interpretation and review of laboratory results Normal [facility] Phosphateon 04-21-2023 Phosphate [Mass/Vol] 3.2 mg/dL Normal 2.5-4.9 [facility] Comment on above: Result Comment: The performance characteristics of phosphorus testing in heparinized plasma have been validated by the individual laboratory site where testing is performed. Testing on heparinized plasma is not approved by the FDA; however, such approval is not necessary. Performed By: #### 2 777-1 #### JOY GUTIERREZ ([id number]) [facility] ([facility]) [address] [place] [address] 23809 Phosphate [Mass/Vol]on 04-21 Interpretation and review of laboratory results Normal [facility] Basic metabolic 2000 panelon 04-20-2023 Anion gap [Moles/Vol] 8 mmol/L Low 10 - 20 mmol/L [facility] Calcium [Mass/Vol] 9.0 mg/dL 8.6 - 10. 3 mg/dL [facility] Chloride [Moles/Vol] 100 mmol/L 98 - 107 mmol/L [facility] CO2 [Moles/Vol] 30 mmol/L 21 - 32 mmol/L [facility] Creatinine [Mass/Vol] 0.41 mg/dL Low 0.50 - 1.05 mg/dL [facility] GFR/1.73 sq M.predicted MDRD (S/P/Bld) [Vol rate/Area] - PINF [facility] Comment on above: Calculations of gayle mated GFR are performed using the 2020 CKD-EPI Study Refit equation without the race variable for the IDMS-Traceable Creatinine Methods. https://jasn.asnjournals.org/content//ASN.25705076 88 Glucose [Mass/Vol] 88 mg/dL 74 - 99 mg/dL [facility] Interpretation and review of laboratory results Abnormal [facility] Potassium [Moles/Vol] 4.0 mmol/L 3.5 - 5.3 mmol/L [facility] Sodium [Moles/Vol] 134 mmol/L Low 136 - 145 mmol/L [facility] Urea nitrogen [Mass/Vol] 11 mg/dL 6 - 23 mg/dL [facility] Anion gap [Moles/Vol] 8 mmol/L Low 10-20 [facility] Comment on above: Performed By: #### 2 4321-2 #### JOY GUTIERREZ ([id number]) [facility] ([facility]) [address] [place] [address]8737 Calcium [Mass/Vol] 9.0 mg/dL Normal 8.6-10.3 [facility] Comment on above: Performed By: #### 2 4321-2 #### JOY GUTIERREZ ([id number]) [facility] ([facility]) [address] [place] [address] 30936 Chloride [Moles/Vol] 100 mmol/L Normal 98-107 [facility] Comment on above: Performed By: #### 2 4321-2 #### JOY GUTIERREZ ([id number]) [facility] ([facility]) [address] [place] [address] 92344 CO2 [Moles/Vol] 30 mmol/L Normal 21-32 [facility] Comment on above: Performed By: #### 2 4321-2 #### JOY GUTIERREZ ([id number]) [facility] ([facility]) [address] [place] [address] 38630 Creatinine [Mass/Vol] 0.41 mg/dL Low 0.50-1.05 [facility] Comment on above: Performed By: #### 2 4321-2 #### JOY GUTIERREZ ([id number]) [facility] ([facility]) [address] [place] [address] 63495 GFR/1.73 sq M.predicted MDRD (S/P/Bld) [Vol rate/Area] mL/min/{1.73_m2} Normal >60 [facility] Comment on above: Result Comment: Calc ulations of estimated GFR are performed using the 2020 CKD-EPI Study Refit equation without the race variable for the IDMS-Traceable Creatinine Methods. https://jasn.asnjournals.org/content/early//ASN.51522798 88 Performed By: #### 2 4321-2 #### JOY GUTIERREZ ([id number]) [facility] ([facility]) [address] [place] [address] 51189 Glucose [Mass/Vol] 88 mg/dL Normal 74-99 [facility] Comment on above: Performed By: #### 2 4321-2 #### JOY GUTIERREZ ([id number]) [facility] ([facility]) [address] [place] [address] 57821 Potassium [Moles/Vol] 4.0 mmol/L Normal 3.5-5.3 [facility] Comment on above: Performed By: #### 2 4321-2 #### JOY GUTIERREZ ([id number]) [facility] ([facility]) [address] [place] [address] 66750 Sodium [Moles/Vol] 134 mmol/L Low 136-145 [facility] Comment on above: Performed By: #### 2 4321-2 #### JOY GUTIERREZ ([id number]) [facility] ([facility]) [address] [place] [address] Urea nitrogen [Mass/Vol] 11 mg/dL Normal 6-23 [facility] Comment on above: Performed By: #### 2 4321-2 #### JOY GUTIERREZ ([id number]) [facility] ([facility]) [address] [place] [address] CBC panel Auto (Bld)on 04-20 Erythrocyte distribution width (RBC) [Ratio] 12.5 % 11.5 - 14.5 % [facility] Hematocrit (Bld) [Volume fraction] 27.9 % Low 36.0 - 46.0 % [facility] Hemoglobin (Bld) [Mass/Vol] 8.9 g/dL Low 12.0 - 16.0 g/dL [facility] Interpretation and review of laboratory results Abnormal [facility] MCH (RBC) [Entitic mass] 32.6 pg 26.0 - 34.0 pg [facility] MCHC (RBC) [Mass/Vol] 31.9 g/dL Low 32.0 - 36.0 g/dL [facility] MCV (RBC) [Entitic vol] 102 fL High 80 - 100 fL [facility] Nucleated RBC/100 WBC (Bld) [Ratio] 0.0 % [facility] Platelet mean volume (Bld) [Entitic vol] 8.2 fL 7.5 - 11.5 fL [facility] Platelets (Bld) [#/Vol] 417 10*3/uL [facility] RBC (Bld) [#/Vol] 2.73 10*6/uL Low [facility] WBC (Bld) [#/Vol] 7.3 10*3/uL [facility] Erythrocyte distribution width (RBC) [Ratio] 12.5 % Normal 11.5-14.5 [facility] Comment on above: Performed By: #### 5 8410-2 #### JOY GUTIERREZ ([id number]) [facility] ([facility]) [address] [place] [address] Hematocrit (Bld) [Volume fraction] 27.9 % Low 36.0-46.0 [facility] Comment on above: Performed By: #### 5 8410-2 #### JOY GUTIERREZ ([id number]) [facility] ([facility]) [address] [place] [address] 83433 Hemoglobin (Bld) [Mass/Vol] 8.9 g/dL Low 12.0-16.0 [facility] Comment on above: Performed By: #### 5 8410-2 #### JOY GUTIERREZ ([id number]) [facility] ([facility]) [address] [place] [address] MCH (RBC) [Entitic mass] 32.6 pg Normal 26.0-34.0 [facility] Comment on above: Performed By: #### 5 8410-2 #### JOY GUTIERREZ ([id number]) [facility] ([facility]) [address] [place], [place] [id number] MCHC (RBC) [Mass/Vol] 31.9 g/dL Low 32.0-36.0 [facility] Comment on above: Performed By: #### 5 8410-2 #### JOY GUTIERREZ ([id number]) [facility] ([facility]) [address] [place] [address] 37638 MCV (RBC) [Entitic vol] 102 fL High 80-100 [facility] Comment on above: Performed By: #### 5 8410-2 #### JOY GUTIERREZ ([id number]) [facility] ([facility]) [address] [place] [address] 18210 Nucleated RBC/100 WBC (Bld) [Ratio] 0.0 /100 WBCs Normal 0.0-0.0 [facility] Comment on above: Performed By: #### 5 8410-2 #### JOY GUTIERREZ ([id number]) [facility] ([facility]) [address] [place] [address] 85940 Platelet mean volume (Bld) [Entitic vol] 8.2 fL Normal 7.5-11.5 [facility] Comment on above: Performed By: #### 5 8410-2 #### JOY GUTIERREZ ([id number]) [facility] ([facility]) [address] [place] [address] 34792 Platelets (Bld) [#/Vol] 417 x10*3/uL Normal 150-450 [facility] Comment on above: Performed By: #### 5 8410-2 #### JOY GUTIERREZ ([id number]) [facility] ([facility]) [address] [place] [address] 77211 RBC (Bld) [#/Vol] 2.73 x10*6/uL Low 4.00-5.20 [facility] Comment on above: Performed By: #### 5 8410-2 #### JOY GUTIERREZ ([id number]) [facility] ([facility]) [address] [place] [address] 95245 WBC (Bld) [#/Vol] 7.3 x10*3/uL Normal 4.4-11.3 [facility] Comment on above: Performed By: #### 5 8410-2 #### JOY GUTIERREZ ([id number]) [facility] ([facility]) [address] [place] [address] 14930 BASIC METABOLIC PANELon -2 Anion gap [Moles/Vol] 10 mmol/L Normal 10 - 20 [facility] Comment on above: Performed By: #### C BCDF #### [address] [address] Calcium [Mass/Vol] 9.3 mg/dL Normal 8.6 - 10.3 [facility] Comment on above: Performed By: #### C BCDF #### [address] [address] Chloride [Moles/Vol] 97 mmol/L Low 98 - 107 [facility] Comment on above: Performed By: #### C BCDF #### [address] [address] Creatinine [Mass/Vol] 0.44 mg/dL Low 0.50 - 1.05 [facility] Comment on above: Performed By: #### C BCDF #### [address] [address] eGFR FEMALE >90 Normal >90 [facility] Comment on above: Result Comment: CALC ULATIONS OF ESTIMATED GFR ARE PERFORMED USING THE 2020 CKD-EPI STUDY REFIT EQUATION WITHOUT THE RACE VARIABLE FOR THE IDMS-TRACEABLE CREATININE METHODS. https://jasn.asnjournals.org/content//ASN.68570853 88 Performed By: #### C BCDF #### [address] [address] Glucose [Mass/Vol] 164 mg/dL High 74 - 99 [facility] Comment on above: Performed By: #### C BCDF #### [address] [address] HCO3 (Bld) [Moles/Vol] 29 mmol/L Normal 21 - 32 [facility] Comment on above: Performed By: #### C BCDF #### [address] [address] Potassium [Moles/Vol] 4.0 mmol/L Normal 3.5 - 5.3 [facility] Comment on above: Performed By: #### C BCDF #### [address] [address] Sodium [Moles/Vol] 132 mmol/L Low 136 - 145 [facility] Comment on above: Performed By: #### C BCDF #### [address] [address] Urea nitrogen [Mass/Vol] 12 mg/dL Normal 6 - 23 [facility] Comment on above: Performed By: #### C BCDF #### [address] [address] Basic metabolic 2000 panelon 04-18-2023 Anion gap [Moles/Vol] 10 mmol/L 10 - 20 mmol/L [facility] Calcium [Mass/Vol] 9.3 mg/dL 8.6 - 10. 3 mg/dL [facility] Chloride [Moles/Vol] 97 mmol/L Low 98 - 107 mmol/L [facility] CO2 [Moles/Vol] 29 mmol/L 21 - 32 mmol/L [facility] Creatinine [Mass/Vol] 0.44 mg/dL Low 0.50 - 1.05 mg/dL [facility] GFR Female >90 - PINF [facility] Comment on above: CALCULATIONS OF GAYLE MATED GFR ARE PERFORMED USING THE 2020 CKD-EPI STUDY REFIT EQUATION WITHOUT THE RACE VARIABLE FOR THE IDMS-TRACEABLE CREATININE METHODS. https://jasn.asnjournals.org/content/early/ASN.14771743 88 Glucose [Mass/Vol] 164 mg/dL High 74 - 99 mg/dL [facility] Potassium [Moles/Vol] 4.0 mmol/L 3.5 - 5.3 mmol/L [facility] Sodium [Moles/Vol] 132 mmol/L Low 136 - 145 mmol/L [facility] Urea nitrogen [Mass/Vol] 12 mg/dL 6 - 23 mg/dL [facility] Daily Progress Note-Medicine on 04-18-2023 Daily Progress Note-Medicine Service: Medicine Subjective Data: CHRISTINE MAYS is a 78 year old Female who is Hospital Day # 4. Chronic arthritis related and musculoskeletal pain. Objective Data: Objective Information: T PRBPMAPSpO2 [id number]% Date/Time04/18 7: 7: 7: 7: 19: 7:55 Range(35.7C - 36.6C ) (74 - 89 ) (14 - 23 ) (127 - 177 )/ (46 - 81 ) (70 - 98 ) (93% - 98% ) Pain reported at 04/18 5:07: 7 = Severe Physical Exam Narrative: Physical Exam: Constitutional: awake/alert/oriented x3, not in acute distress, Eyes: PERRL, EOMI, clear sclera ENMT: normal hearing, mucous membranes moist, no pharyngeal erythema or exudates Head/Neck: neck supple, no apparent injury, no JVD, no lymphadenopathy, trachea midline Respiratory/Thorax: patent airways, clear to auscultation bilaterally, no crackles or wheezing or rhonchi Cardiovascular: Regular, rate and rhythm, no murmurs, 2+ equal pulses of the extremities Gastrointestinal: nondistended, positive bowel sounds, soft, non-tender, no rebound tenderness or guarding, no masses palpable, no organomegaly Extremities: no edema Neurological: intact senses, motor, response and reflexes, normal strength, babinski negative Psychological: Appropriate mood and behavior Skin: warm, no rashes Medication: Medications: CARDIOVASCULAR AGENTS: 1. Atenolol: 25 mg Oral Daily CENTRAL NERVOUS SYSTEM AGENTS: 1. Acetaminophen: 650 mg Oral Every 4 Hours PRN 2. Acetaminophen: 650 mg Oral Every 4 Hours PRN 3. Morphine Injectable: 2 mg IntraVenous Push Every 4 Hours PRN 4. traMADol: 50 mg Oral Every 6 Hours PRN 5. Gabapentin: 300 mg Oral 2 Times a Day 6. Ondansetron Injectable: 4 mg IntraVenous Push Every 4 Hours PRN 7. LORazepam: 0.5 mg Oral At Bedtime 8. tiZANidine: 2 mg Oral Every 8 Hours PRN COAGULATION MODIFIERS: 1. Apixaban: 10 mg Oral Every 12 Hours 2. Apixaban: 5 mg Oral Every 12 Hours GASTROINTESTINAL AGENTS: 1. Magnesium Hydroxide Oral Liquid: 10 mL Oral Every 24 Hours PRN HORMONES/HORMONE MODIFIERS: 1. Levothyroxine: 112 microgram(s) Oral Daily PSYCHOTHERAPEUTIC AGENTS: 1. traZODone: 50 mg Oral At Bedtime Conditional Medication Orders ---- 1. Perflutren Lipid Microsphere (Activated) 1.3 mL / NaCL 0.9% T.V. 10 mL Injectable: 0.5 mL IntraVenous Push Once Recent Lab Results: Results: BMP: 04/18/2023 09:33 NA+ Cl- BUN / 132 L 97 L 12 / ---- Glucose 164 H K+ HCO3- Creat \\ 4.0 29 0.44 L \\ Calcium : 9.3 Anion Gap : 10 I have reviewed these laboratory results: Basic Metabolic Panel 18-Apr-2023 09:33:00 ResultValue Glucose, Serum 164 H NA 132 L K 4.0 CL 97 L Bicarbonate, Serum 29 Anion Gap, Serum 10 BUN 12 CREAT 0.44 L GFR Female >90 Calcium, Serum 9.3 Assessment and Plan: Code Status: Code StatusDNAR with Added Limitations Advance Care Planning: Advance Care Planning: I evaluated the patient and determined the patient's capacity to understand the risks, benefits and alternatives to treatment. I elicited the patient's goals for treatment and reviewed advance directives and medical orders for life sustaining treatment. The patient was given an opportunity to review a blank advance directive as appropriate. Assessment: 78-year-old female with a past medical history of spinal stenosis/lumbar radiculopathy status post recent L3-L5 lumbar surgery, hypertension, osteoarthritis, hypothyroidism who presented [facility] the emergency room from shelter facility for syncope. CT scan of the chest showed small nonocclusive segmental pulmonary embolism in the right lower lobe. Blood work-up showed hyponatremia, hypokalemia, hypomagnesemia. Plan Patient was started on heparin drip then switched to Eliquis To follow PCP and hematology Patient will follow Ortho/spine for arthritis issues and optimal pain control Muscle relaxants and narcotics as deemed appropriate Watch polypharmacy No DVT on venous duplex ultrasound lower extremity Immobility likely contributing factor also Echocardiogram with slight LVH and impaired diastolic filling pattern EF 60 to 65% Replaced electrolytes including hypokalemia, Hypomagnesemia and hypophosphatemia Hydrated and sodium level is stable Pain and symptoms better overall hemodynamically stable, no fever Electronic Signatures: Joaquin Meng) (Signed 18-Apr-2023 12:22) Authored: Service, Subjective Data, Objective Data, Assessment and Plan, Note Completion Last Updated: 18-Apr-2023 12:22 by Joaquin Meng) Normal [facility] - Chemistry and C hemistry - challengeon 04-18-2023 Magnesium [Mass/Vol] 1.58 mg/dL Low 1.60 - 2.40 mg/dL [facility] Phosphate [Mass/Vol] 2.4 mg/dL Low 2.5 - 4.9 mg/dL [facility] Comment on above: The performance rose marie acteristics of phosphorus testing in heparinized plasma have been validated by the individual laboratory site where testing is performed. Testing on heparinized plasma is not approved by the FDA; however, such approval is not necessary. MAGNESIUMon 04-18-2023 Magnesium [Mass/Vol] 1.58 mg/dL Low 1.60 - 2.40 [facility] Comment on above: Performed By: #### H AUF #### [address] [address] No Panel Informationon 04-18 Interpretation and review of laboratory results [facility] PHOSPHORUSon 04-18-2023 Phosphate [Mass/Vol] 2.4 mg/dL Low 2.5 - 4.9 [facility] Comment on above: Result Comment: The performance characteristics of phosphorus testing in heparinized plasma have been validated by the individual laboratory site where testing is performed. Testing on heparinized plasma is not approved by the FDA; however, such approval is not necessary. Performed By: #### C BCDF #### [place] [address] BASIC METABOLIC PANELon 03-22 Anion gap [Moles/Vol] 8 mmol/L Low 10 - 20 [facility] Comment on above: Performed By: #### A PTT #### [address] [address] Calcium [Mass/Vol] 8.7 mg/dL Normal 8.6 - 10.3 [facility] Comment on above: Performed By: #### A PTT #### [address] [address] Chloride [Moles/Vol] 96 mmol/L Low 98 - 107 [facility] Comment on above: Performed By: #### A PTT #### [address] [address] Creatinine [Mass/Vol] 0.42 mg/dL Low 0.50 - 1.05 [facility] Comment on above: Performed By: #### A PTT #### [address] [address] eGFR FEMALE >90 Normal >90 [facility] Comment on above: Result Comment: CALC ULATIONS OF ESTIMATED GFR ARE PERFORMED USING THE 2020 CKD-EPI STUDY REFIT EQUATION WITHOUT THE RACE VARIABLE FOR THE IDMS-TRACEABLE CREATININE METHODS. https://jasn.asnjournals.org/content//ASN.15387447 88 Performed By: #### A PTT #### [address] [address] Glucose [Mass/Vol] 96 mg/dL Normal 74 - 99 [facility] Comment on above: Performed By: #### A PTT #### [address] [address] HCO3 (Bld) [Moles/Vol] 30 mmol/L Normal 21 - 32 [facility] Comment on above: Performed By: #### A PTT #### [address] [address] Potassium [Moles/Vol] 3.7 mmol/L Normal 3.5 - 5.3 [facility] Comment on above: Performed By: #### A PTT #### [address] [address] Sodium [Moles/Vol] 130 mmol/L Low 136 - 145 [facility] Comment on above: Performed By: #### A PTT #### [address] [address] Urea nitrogen [Mass/Vol] 12 mg/dL Normal 6 - 23 [facility] Comment on above: Performed By: #### A PTT #### [address] [address] Basic metabolic 2000 panelon 04-17-2023 Anion gap [Moles/Vol] 8 mmol/L Low 10 - 20 mmol/L [facility] Calcium [Mass/Vol] 8.7 mg/dL 8.6 - 10. 3 mg/dL [facility] Chloride [Moles/Vol] 96 mmol/L Low 98 - 107 mmol/L [facility] CO2 [Moles/Vol] 30 mmol/L 21 - 32 mmol/L [facility] Creatinine [Mass/Vol] 0.42 mg/dL Low 0.50 - 1.05 mg/dL [facility] GFR Female >90 - PINF [facility] Comment on above: CALCULATIONS OF GAYLE MATED GFR ARE PERFORMED USING THE 2020 CKD-EPI STUDY REFIT EQUATION WITHOUT THE RACE VARIABLE FOR THE IDMS-TRACEABLE CREATININE METHODS. https://jasn.asnjournals.org/content//ASN.29708459 88 Glucose [Mass/Vol] 96 mg/dL 74 - 99 mg/dL [facility] Potassium [Moles/Vol] 3.7 mmol/L 3.5 - 5.3 mmol/L [facility] Sodium [Moles/Vol] 130 mmol/L Low 136 - 145 mmol/L [facility] Urea nitrogen [Mass/Vol] 12 mg/dL 6 - 23 mg/dL [facility] CBC AND DIFFERENTIALon 04-17 % AUTOMATED IMMATURE GRAN 1.1 % High 0.0 - 0.9 [facility] Comment on above: Result Comment: Aurora ture Granulocyte Count (IG) includes promyelocytes, myelocytes and metamyelocytes but does not include bands. Percent differential counts (%) should be interpreted in the context of the absolute cell counts (cells/L). Performed By: #### C BCDF #### [address] [address] Basophils (Bld) [#/Vol] 0.03 10*3/uL Normal 0.00 - 0.10 [facility] Comment on above: Performed By: #### C BCDF #### [address] [address] Basophils/100 WBC (Bld) 0.2 % Normal 0.0 - 2.0 [facility] Comment on above: Performed By: #### C BCDF #### [address] [address] Eosinophils (Bld) [#/Vol] 0.10 10*3/uL Normal 0.00 - 0.40 [facility] Comment on above: Performed By: #### C BCDF #### [address] [address] Eosinophils/100 WBC (Bld) 0.8 % Normal 0.0 - 6.0 [facility] Comment on above: Performed By: #### C BCDF #### [address] [address] Erythrocyte distribution width (RBC) [Ratio] 12.8 % Normal 11.5 - 14.5 [facility] Comment on above: Performed By: #### C BCDF #### [address] [address] Hematocrit (Bld) [Volume fraction] 29.9 % Low 36.0 - 46.0 [facility] Comment on above: Performed By: #### C BCDF #### [address] [address] Hemoglobin (Bld) [Mass/Vol] 9.9 g/dL Low 12.0 - 16.0 [facility] Comment on above: Performed By: #### C BCDF #### [address] [address] Lymphocytes (Bld) [#/Vol] 1.73 10*3/uL Normal 0.80 - 3.00 [facility] Comment on above: Performed By: #### C BCDF #### [address] [address] Lymphocytes/100 WBC (Bld) 14.4 % Normal 13.0 - 44.0 [facility] Comment on above: Performed By: #### C BCDF #### [address] [address] MCHC (RBC) [Mass/Vol] 33.1 g/dL Normal 32.0 - 36.0 [facility] Comment on above: Performed By: #### C BCDF #### [address] [address] MCV (RBC) [Entitic vol] 99 fL Normal 80 - 100 [facility] Comment on above: Performed By: #### C BCDF #### [address] [address] Monocytes (Bld) [#/Vol] 1.19 10*3/uL High 0.05 - 0.80 [facility] Comment on above: Performed By: #### C BCDF #### [address] [address] Monocytes/100 WBC (Bld) 9.9 % Normal 2.0 - 10.0 [facility] Comment on above: Performed By: #### C BCDF #### [address] [address] Neutrophils (Bld) [#/Vol] 8.86 10*3/uL High 1.60 - 5.50 [facility] Comment on above: Result Comment: Perc ent differential counts (%) should be interpreted in the context of the absolute cell counts (cells/L). Performed By: #### C BCDF #### [address] [address] Neutrophils/100 WBC (Bld) 73.6 % Normal 40.0 - 80.0 [facility] Comment on above: Performed By: #### C BCDF #### [address] [address] Platelets (Bld) [#/Vol] 482 10*3/uL High 150 - 450 [facility] Comment on above: Performed By: #### C BCDF #### [address] [address] RBC 3.03 x10E12/L Low 4.00 - 5.20 [facility] Comment on above: Performed By: #### C BCDF #### [address] [address] WBC (Bld) [#/Vol] 12.0 10*3/uL High 4.4 - 11.3 [facility] Comment on above: Performed By: #### C BCDF #### [address] [address] CBC W Auto Differential pane l (Bld)on 04-17-2023 Basophils (Bld) [#/Vol] 0.03 10*3/uL [facility] Basophils/100 WBC (Bld) 0.2 % 0.0 - 2.0 % [facility] Eosinophils (Bld) [#/Vol] 0.10 10*3/uL [facility] Eosinophils/100 WBC (Bld) 0.8 % 0.0 - 6.0 % [facility] Erythrocyte distribution width (RBC) [Ratio] 12.8 % 11.5 - 14.5 % [facility] Hematocrit (Bld) [Volume fraction] 29.9 % Low 36.0 - 46.0 % [facility] Hemoglobin (Bld) [Mass/Vol] 9.9 g/dL Low 12.0 - 16.0 g/dL [facility] Immature granulocytes/100 WBC (Bld) 1.1 % High 0.0 - 0.9 % [facility] Comment on above: Immature Granulocyte Count (IG) includes promyelocytes, myelocytes and metamyelocytes but does not include bands. Percent differential counts (%) should be interpreted in the context of the absolute cell counts (cells/L). Interpretation and review of laboratory results Abnormal [facility] Lymphocytes (Bld) [#/Vol] 1.73 10*3/uL [facility] Lymphocytes/100 WBC (Bld) 14.4 % 13.0 - 44.0 % [facility] MCHC (RBC) [Mass/Vol] 33.1 g/dL 32.0 - 36.0 g/dL [facility] MCV (RBC) [Entitic vol] 99 fL 80 - 100 fL [facility] Monocytes (Bld) [#/Vol] 1.19 10*3/uL High [facility] Monocytes/100 WBC (Bld) 9.9 % 2.0 - 10.0 % [facility] Neutrophils (Bld) [#/Vol] 8.86 10*3/uL High [facility] Comment on above: Percent differential counts (%) should be interpreted in the context of the absolute cell counts (cells/L). Neutrophils/100 WBC (Bld) 73.6 % 40.0 - 80.0 % [facility] Platelets (Bld) [#/Vol] 482 10*3/uL High [facility] RBC (Bld) [#/Vol] 3.03 10*6/uL Low [facility] WBC (Bld) [#/Vol] 12.0 10*3/uL High [facility] CORONAVIRUS 2019, SCREEN ASY MPTOMATICon 04-17-2023 SARS-CoV-2 (COVID-19) RNA COBY+probe Ql (Unsp spec) Not detected Normal Not Detected [facility] Comment on above: Result Comment: . This test has received FDA Emergency Use Authorization (EUA) and has been verified by [facility]. This test is only authorized for the duration of time that circumstances exist to justify the authorization of the emergency use of in vitro diagnostic tests for the detection of SARS-CoV-2 virus and/or diagnosis of COVID-19 infection under section 564(b)(1) of the Act, 21 U.S.C. 360bbb-3(b)(1), unless the authorization is terminated or revoked sooner. [facility] is certified under CLIA-88 as qualified to perform high complexity testing. Testing is performed in the [facility] laboratory located at [address] [place] [address]. SARS-CoV-2/Flu/RSV Multiplex Test: Fact sheet for providers: https://www.fda.gov/media/309188/download Fact sheet for patients: https://www.fda.gov/media/016961/download Performed By: #### A PTT #### [place] [address] Lab Specimen Source Nasal, Nasopharyngeal Normal [facility] Comment on above: Performed By: #### A PTT #### [place] [address] Covid 19 Resultson SARS-CoV-2 (COVID-19) RNA COBY+probe Ql (Unsp spec) NEGATIVE COVID-19 Test Coronaviruses are common world-wide and are the cause of many common colds. SARS-COV2 is a new coronavirus that began circulating worldwide in 2019 so we are calling it COVID-19. It has been estimated that four out of five patients with COVID-19 will recover at home without the need for medical attention. Symptoms of COVID-19 may include cough, fever, shortness of breath, loss of taste or smell and other flu-like symptoms including chills, sore muscles, sore throat, and headache. Severe illness is more common in older people and people with other health problems such as high blood pressure, obesity, and immune system problems. If the test is positive, you have COVID-19. You will be contacted by the ordering physicians office and instructed to remain on home isolation, in accordance with CDC guidelines. You may also be contacted by the [facility] to see if any of your close contacts may have been exposed to the virus and need to quarantine. If the test is negative, you likely do not have COVID-19 at this time, but you still may have a different illness that can spread to other people (like Influenza, or the Flu) and could still be at risk for getting COVID-19. We recommend that you stay away from other people to limit the spread of illness until your symptoms are improving and you are fever-free for 24 hours without the use of fever lowering medications such as acetaminophen or ibuprofen. No test is 100% accurate so if you are still concerned you may have COVID-19, talk to your doctor about the need to continue to stay away from others. Medicines Unless your provider told you not to use the following: Acetaminophen (Tylenol and others) is generally safe. Anti-inflammatory medications, such as Ibuprofen (Advil or Motrin) or Naproxen (Aleve) can also be used. Eikw-eja-tclqckq cough and cold medicines can be used according to the instructions on the package. Some wnsn-wel-damnieg medicines also contain acetaminophen. Make sure you are not taking more than your recommended dose. For those not hospitalized, there is no specific treatment available for this illness. Antibiotics do not treat Coronaviruses. Follow-Up Follow up with your doctor by scheduling a virtual visit or consider follow-up at one of our urgent care fever clinics. If you are having difficulty breathing, or are very weak and having difficulty standing, this is a medical emergency. Call 911 or have someone take you to the nearest emergency room immediately. If possible, wear a facemask. Additional guidance from the CDC for patients who tested POSITIVE for COVID-19 How to isolate: Isolate yourself in a specific room at home and limit your contact with others. Use a separate bathroom from other members of the household, when possible. Leave home only to get essential medical care. Do not go to work, school or public areas. Avoid using public transportation, ride-sharing, or taxis. Restrict contact with pets and other animals. If you must care for your pet or be around animals while you are sick, wash your hands before and after your interaction and wear a facemask. Make sure that shared spaces in the home have good airflow, such as by an air conditioner or an opened window, weather permitting. Personal Hygiene Procedures: Wear a face mask when in the same room as other people or pets. If a face mask interferes with your breathing, others should wear a mask when sharing space with you. Frequent hand-washing: wash your hands with soap and water for at least 20 seconds. If soap and water are not available, use alcohol-based hand auto body estimator. Avoid touching your eyes, nose, and mouth with unwashed hands. Household Hygiene Procedures: Avoid sharing personal household items such as dishes, glassware, cups, eating utensils, towels or bedding with other people or pets in your home. After use, these items should be washed with soap and hot water. Disinfect all high-touch surfaces every day with antibacterial cleaning solutions such as Lysol wipes, bleach, cleansers, etc. High-touch surfaces include tabletops, doorknobs, bathroom fixtures, toilets, phones, keyboards, tablets and bedside tables. Immediately clean any surfaces that may have blood, poop or body fluids on them, using antibacterial cleaning solutions such as Lysol wipes, bleach, cleansers, etc. If clothing or bedding come into contact with blood, poop or body fluids, they should be washed immediately. Follow the directions on the laundry detergent and clothing labels but hot water is recommended when possible. Stopping home isolation precautions: If possible, consult your doctor before stopping home isolation precautions. According to the CDC, you can discontinue home isolation precautions when you have met both of these criteria: Your fever and respiratory symptoms have been gone for 24 eric (more content not included)... [facility] Discharge [id number] Discharge Profile2 Discharge Orders: Anticipated Discharge Date: Anticipated Discharge [id number] Code Status: Code Status at Discharge: DNR and No Intubation DNR Order Additional Instructions (peds only): Activity: activity as tolerated. Diet: Dietlow fat Hospital Course (Home Care/Gold Form): Hospital Course: Hospital Course: include significant abnormal lab values 78-year-old female with a past medical history of spinal stenosis/lumbar radiculopathy status post recent L3-L5 lumbar surgery, hypertension, osteoarthritis, hypothyroidism who presented to the emergency room from shelter facility for syncope. CT scan of the chest showed small nonocclusive segmental pulmonary embolism in the right lower lobe. Blood work-up showed hyponatremia, hypokalemia, hypomagnesemia. Plan Patient was started on heparin drip then switched to Eliquis restarted back To follow PCP and hematology Patient will follow Ortho/spine for arthritis issues and optimal pain control Muscle relaxants and narcotics as deemed appropriate Watch polypharmacy No DVT on venous duplex ultrasound lower extremity Immobility likely contributing factor also Echocardiogram with slight LVH and impaired diastolic filling pattern EF 60 to 65% Replace electrolytes including hypokalemia, Hypomagnesemia and hypophosphatemia Hydrated and sodium level is stable Pain and symptoms better overall hemodynamically stable, no fever and white count reactive improving Provider FINAL REVIEW of Orders: Final Review: Final Review of Medication Reconciliation and Orders Completedby Physician Reviewing ProviderJoaquin Meng MD at 17-Apr-2023 15:26:27 Appointments: Follow-Up Appointment 01: Physician/Dept/ServicePrimar y Care Physician/Facility Physician Reason for Referralpost hospital stay Call to Schedule in1 week Follow-Up Appointment 02: Physician/Dept/ServiceCardio logy Reason for Referralpost hospital stay Call to Schedule in2 weeks Follow-Up Appointment 03: Physician/Dept/ServiceHemato logy Luis Armando Reason for Referralpost hospital stay Call to Schedule in2 weeks [address] Phone [phone] Follow-Up Appointment 04: Physician/Dept/ServiceOrthop edic Supervisor Facepiece Line Reason for Referralpost hospital stay Call to Schedule in2 weeks Other Clinician Instructions: Other Instructions: Nursing InstructionsApply foam dressing to sacrum/coccyx if not ambulating Respiratory InstructionsOxygen 2 LPM NC, titrate to keep SP02 greater than 92%. Daily am pulse ox at 0800 when on baseline oxygen. Electronic Signatures: Pao Molina) (Signed 18-Apr-2023 10:51) Authored: Discharge Orders, Appointments, Other Clinician Instructions Joaquin Meng) (Signed 17-Apr-2023 15:26) Authored: Discharge Orders, Hospital Course (Home Care/Gold Form), Provider FINAL REVIEW of Orders, Appointments, Gold Form - Security Coordinator Summary Last Updated: 18-Apr-2023 10:51 by Pao Molina (RN) Normal [facility] HEPARIN ASSAY,UFHon 04-17-20 23 HEPARIN ASSAY,UFH Canceled [facility] Comment on above: Order Comment: TEST HEPARIN ASSAY,UFH WAS CANCELLED, 04/17/2023 02:28 Result Comment: The therapeutic reference range for UFH may be either 0.3-0.6 IU/mL or 0.3-0.7 IU/mL based on the clinical setting for anticoagulant therapy and the associated nomogram used. For heparin dosing guidelines based on clinical scenario and Heparin Assay results, please refer to local Pharmacy and the [facility] Guidelines for Anticoagulation therapy available on the [facility] intranet at: [email or web address]_Guid elines_for_[email or web address].aspx Performed By: #### H AUF #### [facility] [address] [place] [address] Heparin unfractionated Chrom ogenic method Qn (PPP)on 04-17-2023 [facility] Laboratory - Chemistry and C hemistry - challengeon 04-17-2023 Magnesium [Mass/Vol] 1.62 mg/dL 1.60 - 2.40 mg/dL [facility] Phosphate [Mass/Vol] 2.4 mg/dL Low 2.5 - 4.9 mg/dL [facility] Comment on above: The performance rose marie acteristics of phosphorus testing in heparinized plasma have been validated by the individual laboratory site where testing is performed. Testing on heparinized plasma is not approved by the FDA; however, such approval is not necessary. Laboratory - Coagulationon 0 04-17-2023 Heparin unfractionated Chromogenic method Qn (PPP) CANCELED [facility] Comment on above: The therapeutic refe rence range for UFH may be either 0.3-0.6 IU/mL or 0.3-0.7 IU/mL based on the clinical setting for anticoagulant therapy and the associated nomogram used. For heparin dosing guidelines based on clinical scenario and Heparin Assay results, please refer to local Pharmacy and the [facility] Guidelines for Anticoagulation therapy available on the [facility] intranet at: [email or web address]_[email or web address] devine_[email or web address].aspx Result canceled by the ancillary. MAGNESIUMon 04-17-2023 Magnesium [Mass/Vol] 1.62 mg/dL Normal 1.60 - 2.40 [facility] Comment on above: Performed By: #### M G #### [place] [address] No Panel Informationon 04-17 [place] [address] [phone], Vascular Lab Report Lower Venous Duplex Ultrasound Patient Name: CHRISTINE Bustamante Physician: [id number] Boo Mcnamara MD Study Date: 04/16/2023 Referring Physician: RADHAMES SNOWDEN MRN/PID: [id number] PCP: Accession/Order#: [id number] CC Report to: Date of : 1945 Technologist: Alyssa Lopez RVT Gender: F Technologist 2: Admission Status: Inpatient Location Performed: [facility] Diagnosis/ICD: R06.02-Shortness of breath Procedure/CPT: 19159 Peripheral venous duplex scan for DVT complete-20009 Pertinent History: Previous SVT. CONCLUSIONS: Right Lower Venous: No evidence of acute deep vein thrombus visualized in the right lower extremity. Left Lower Venous: No evidence of acute deep vein thrombus visualized in the left lower extremity. Comparison: Compared with study from 03/30/2021, Still negative for DVT. Former GSV thrombus was not seen on todays study. Imaging & Doppler Findings: Right Compressible Thrombus Flow Distal External Iliac Spontaneous/Phasic CFV Yes None Spontaneous/Phasic PFV Yes None FV Proximal Yes None Spontaneous/Phasic FV Mid Yes None FV Distal Yes None Popliteal Yes None Spontaneous/Phasic Peroneal Yes None PTV Yes None Left Compress Thrombus Flow Distal External Iliac Spontaneous/Phasic CFV Yes None Spontaneous/Phasic PFV Yes None FV Proximal Yes None Spontaneous/Phasic FV Mid Yes None FV Distal Yes None Popliteal Yes None Spontaneous/Phasic Peroneal Yes None PTV Yes None [id number] Mcnamara MD Final Radha Fleming MD - 04/17/2023 [place] [address] [phone], Vascular Lab Report Lower Venous Duplex Ultrasound Patient Name: CHRISTINE Turcios JACOBO Reading Physician: Kirby Mcnamara MD Study Date: 04/16/2023 Referring Physician: RADHAMES SNOWDEN MRN/PID: [id number] PCP: Accession/Order#: [id number] CC Report to: Date of : 1945 Technologist: Alyssa Lopez RVT Gender: F Technologist 2: Admission Status: Inpatient Location Performed: [facility] Diagnosis/ICD: R06.02-Shortness of breath Procedure/CPT: 81482 Peripheral venous duplex scan for DVT complete-41826 Pertinent History: Previous SVT. CONCLUSIONS: Right Lower Venous: No evidence of acute deep vein thrombus visualized in the right lower extremity. Left Lower Venous: No evidence of acute deep vein thrombus visualized in the left lower extremity. Comparison: Compared with study from 03/30/2021, Still negative for DVT. Former GSV thrombus was not seen on todays study. Imaging & Doppler Findings: Right Compressible Thrombus Flow Distal External Iliac Spontaneous/Phasic CFV Yes None Spontaneous/Phasic PFV Yes None FV Proximal Yes None Spontaneous/Phasic FV Mid Yes None FV Distal Yes None Popliteal Yes None Spontaneous/Phasic Peroneal Yes None PTV Yes None Left Compress Thrombus Flow Distal External Iliac Spontaneous/Phasic CFV Yes None Spontaneous/Phasic PFV Yes None FV Proximal Yes None Spontaneous/Phasic FV Mid Yes None FV Distal Yes None Popliteal Yes None Spontaneous/Phasic Peroneal Yes None PTV Yes None [id number] Mcnamara MD Final [facility] Work Phone: Interpretation and review of laboratory results Abnormal [facility] No Panel InformationOrdered By: Boo Sutton on 04-17-2023 [facility] Work Phone: Order Reconciliationon 04-17 Order Reconciliation Page 1 Discharge Reconciliation Document Reconciliation Type: Discharge requested on behalf of Joaquin Meng (Physician) done by Joaquin Meng) Discharge - Reconciliation: 17-Apr-2023 15:16 by: Joaquin Meng) Home Medications EnteredHOME MEDICATIONS AT DISCHARGE DateReconciliation Comment/ Additional Information atenolol 25 mg oral tablet 1 tab(s) orally once a day 26-Jul-2020 16:30 atenolol 25 mg oral tablet 1 tab(s) orally once a day 26-Jul-2020 16:30 atenolol 25 mg oral tablet is continued as atenolol 25 mg oral tablet levothyroxine 112 mcg (0.112 mg) oral tablet 1 tab(s) orally once a day 26-Jul-2020 16:31 levothyroxine 112 mcg (0.112 mg) oral tablet 1 tab(s) orally once a day 26-Jul-2020 16:31 levothyroxine 112 mcg (0.112 mg) oral tablet is continued as levothyroxine 112 mcg (0.112 mg) oral tablet LORazepam 0.5 mg oral tablet 1 tab(s) orally once a day (at bedtime) 26-Jul-2020 16:31 LORazepam 0.5 mg oral tablet 1 tab(s) orally once a day (at bedtime) 26-Jul-2020 16:31 LORazepam 0.5 mg oral tablet is continued as LORazepam 0.5 mg oral tablet Robbins 5 mg-325 mg oral tablet 1 tab(s) orally every 6 hours, As Needed 26-Jul-2020 16:32 Robbins 5 mg-325 mg oral tablet 1 tab(s) orally every 6 hours, As Needed 26-Jul-2020 16:32 Robbins 5 mg-325 mg oral tablet is continued as Robbins 5 mg-325 mg oral tablet tiZANidine 2 mg oral tablet 1 tab(s) orally every 8 hours, As Needed 26-Jul-2020 16:31 tiZANidine 2 mg oral tablet 1 tab(s) orally every 8 hours, As Needed 26-Jul-2020 16:31 tiZANidine 2 mg oral tablet is continued as tiZANidine 2 mg oral tablet traMADol 50 mg oral tablet 1 tab(s) orally 2 times a day, As Needed 26-Jul-2020 16:32 traMADol 50 mg oral tablet 1 tab(s) orally 2 times a day, As Needed 26-Jul-2020 16:32 traMADol 50 mg oral tablet is continued as traMADol 50 mg oral tablet traZODone 50 mg oral tablet 1 tab(s) orally once a day (at bedtime) 26-Jul-2020 16:32 traZODone 50 mg oral tablet 1 tab(s) orally once a day (at bedtime) 26-Jul-2020 16:32 traZODone 50 mg oral tablet is continued as traZODone 50 mg oral tablet triamterene-hydrochlorothiaz rebeca 75mg-50mg oral tablet 1 tab(s) orally once a day 26-Jul-2020 16:31 triamterene-hydrochlorothiaz rebeca 75mg-50mg oral tablet 1 tab(s) orally once a day 26-Jul-2020 16:31 triamterene-hydrochlorothiaz rebeca 75mg-50mg oral tablet is continued as triamterene-hydrochlorothiaz rebeca 75mg-50mg oral tablet Current OrdersDateHOME MEDICATIONS AT DISCHARGE DateReconciliation Comment/ Additional Information Acetaminophen Tablet (TYLENOL)DOSE = 650 mg Oral Every 4 Hours, PRN Pain - Mild (1-3) 16-Apr-2023 03:50 Acetaminophen is not required Acetaminophen Tablet (TYLENOL)DOSE = 650 mg Oral Every 4 Hours, PRN Temp Greater Than or Equal to 38.0 C 16-Apr-2023 03:50 Acetaminophen is not required Apixaban Tablet (ELIQUIS)DOSE = 10 mg Oral Every 12 HoursClinician Notes: Initial therapy duration is for 7 days.Notes from Pharmacy: Stop heparin drip upon first Apixaban administration. 16-Apr-2023 21:40 Apixaban is not required Apixaban Tablet (ELIQUIS)DOSE = 5 mg Oral Every 12 HoursClinician Notes: Maintenance therapy 16-Apr-2023 21:40 Apixaban is not required Atenolol Tablet (TENORMIN)DOSE = 25 mg Oral Daily 16-Apr-2023 03:37 Atenolol is not required Levothyroxine TabletDOSE = 112 microgram(s) Oral Daily 16-Apr-2023 03:37 Levothyroxine is not required LORazepam Tablet (ATIVAN)DOSE = 0.5 mg Oral At Bedtime 16-Apr-2023 03:37 LORazepam is not required Magnesium Hydroxide Oral Liquid (MILK OF MAGNESIA)DOSE = 10 mL Oral Every 24 Hours, PRN Constipation 16-Apr-2023 03:50 Magnesium Hydroxide Oral Liquid is not required Morphine Injectable DOSE = 2 mg IntraVenous Push Every 4 Hours, PRN Pain - Severe (7-10) 16-Apr-2023 02:35 Morphine Injectable is not required Ondansetron Injectable (ZOFRAN)DOSE = 4 mg IntraVenous Push Every 4 Hours, PRN Nausea and/or Vomiting 16-Apr-2023 03:50 Ondansetron Injectable is not required Perflutren Lipid Microsphere (Activated) 1.3 mL / NaCL 0.9% T.V. 10 mL Injectable DOSE = 0.5 mL IntraVenous Push OnceCa.002854 mL/Kg/DOSE x 69 Kg = 0.5 mL/Dose (Daily Total is 0.5 mL)Clinician Notes: 1. Dilute 1.3 mL of activated DEFINITY w 16-Apr-2023 03:50 Perflutren Lipid Microsphere (Activated) 1.3 mL / NaCL 0.9% T.V. 10 mL Injectable is not required traMADol Tablet (ULTRAM)DOSE = 50 mg Oral Every 6 Hours, PRN Pain - Mod (4-6) 16-Apr-2023 03:50 traMADol is not required traZODone Tablet (DESYREL)DOSE = 50 mg Oral At Bedtime 16-Apr-2023 03:37 traZODone is not required Home Medications Added During Discharge Reconciliation Eliquis Starter Pack for Treatment of DVT and PE 5 mg oral tablet 1 tab(s) orally 2 times a day All Active Home Medications at time of Discharge Reconciliation: 17-Apr-2023 15:16 atenolol 25 mg oral tablet 1 tab(s) orally once a day Eliquis Starter Pack for Treatment of DVT and PE 5 mg o (more content not included)... Normal [facility] PHOSPHORUSon 04-17-2023 Phosphate [Mass/Vol] 2.4 mg/dL Low 2.5 - 4.9 [facility] Comment on above: Result Comment: The performance characteristics of phosphorus testing in heparinized plasma have been validated by the individual laboratory site where testing is performed. Testing on heparinized plasma is not approved by the FDA; however, such approval is not necessary. Performed By: #### P HOS #### [id number] [place] [address] Rehab Note-individual therap yon 04-17-2023 Rehab Note-individual therapy Rehab: Info: Disciplineoccupational physical therapy aide Mode of Treatmentindividual therapy; occupational therapy Time IN12:40 Time OUT13:09 Total Treatment [id number] Total Minutes CommentPatient sitting in chair upon arrival, rating pain in B legs 01/27, Jose E Rowe notified and provided morphine to patient to decrease pain. Patient eager to walk this date. Patients friend and daughter present for session. Patient in ... at end of sessionchair; alarm off; not on at start of visit Patient Effortgood Symptoms Noted During/After Treatmentfatigue Patient Response to TreatmentPatient c/o of fatigue when ambulating back to room in BLE/BUE states she is just not used to moving around. Line and Tubestelemetry Vision/Cognition: Affect/Mental Status (Cognitive)WNL Orientation Status (Cognition)oriented x 4 Mobility/Tone: Transfer Assessment/Interventionsstan d to sit transfer; sit to stand transfer Sit-Stand Tift (Transfers)contact guard Sit-Stand Assistive Device (Transfers)gait belt; walker, front-wheeled Stand-Sit Tift (Transfers)contact guard Stand-Sit Assistive Device (Transfers)gait belt; walker, front-wheeled Impairments Impacting Function (Mobility)pain; strength; endurance/activity tolerance ADL: BADL Assessment/Interventionlower body dressing Tift Level (Lower Body Dressing)don; socks; moderate assist (50% patient effort); d/t back and Bilat leg pain Position (Lower Body Dressing)unsupported sitting Impairments, BADL Safety/Performancerange of motion; pain TherEx: Therapeutic ExerciseGreen T band IR/ER x 10 each Green T band bicep curls x 10 each Cross body high fives x 10 each Outcomes Tools: Putting on and taking off regular lower body clothinga little Bathing (including washing, rinsing, drying)a little Toileting, which includes using toilet, bedpan or urinala little Putting on and taking off regular upper body clothinga little Taking care of personal grooming such as brushing teethnone Eating Mealsnone AM-PAC (OT) Total Score20 Short Term Goals: Transfer: Established Transfer: Transfer Type Goaltoilet Transfer: Tift Level Goalmodified independent Transfer: Time Frame for Goal2 wks Transfer: Goal Outcomegoal partially met; CGA for transfers this date for safety d/t patient having morphine Strength: Established Strength Train: GoalWNL Strength Train: Upper Extremities Goalupper extremity(s) Bilateral: Strength Train: Time Frame for Goal2 wks Strength Train: Goal Outcomegoal ongoing Energy Conservation: Established Energy Conservation: Goal DetailsPt will demonstrate I with energy conservation techniques to increase functional activity tolerance to x15+ min without rest breaks/while maintaining O2 sats Energy Conservation: Time Frame for Goal2 wks Energy Conservation: Goal Outcomegoal partially met; Patient engaging in 29 minute session with 1x break with ambulation d/t leg pain and fatigue, no SOB reported Grooming: Established Grooming: Tift Level Goalindependent Grooming: Time Frame for Goal2 wks Grooming: Goal Outcomegoal ongoing Lower Body Dressing: Established Lower Body Dressing: Tift Level Goalmodified independent Lower Body Dressing: Physical Assist Level Goalset-up Lower Body Dressing: Assistive Device Goalreacher; as needed with back precautoins Lower Body Dressing: Time Frame for Goal2 wks Lower Body Dressing: Goal Outcomegoal ongoing Toileting: Established Toileting: Tift Level Goalcontact guard Toileting: Physical Assist Level Goal1-person assist Toileting: Time Frame for Goal2 wks Toileting: Goal Outcomegoal ongoing; Patient did not want to attempt to go to toilet at time of treatment. CGA for chair transfer. Electronic Signatures: Carol Ann DuganVUONG) (Signed 17-Apr-2023 13:22) Authored: Info, Vision/Cognition, Mobility/Tone, ADL, TherEx, Outcomes Tools, Short Term Goals Grecia Burnham (OT) (Signed 18-Apr-2023 08:37) Co-Signer: Info, Vision/Cognition, Mobility/Tone, ADL, TherEx, Outcomes Tools, Short Term Goals Last Updated: 18-Apr-2023 08:37 by Grecia Burnham (OT) [facility]: Info: Disciplinephysical physical therapy aide Mode of Treatmentindividual therapy; physical therapy Time IN11:00 Time OUT11:23 Total Treatment [id number] Patient in ... at end of sessionchair; alarm off; not on at start of visit Communicated with ... at end of sessionbedside nurse Patient Effortadequate Line and Tubestelemetry Pre Treatment Patient Positionsitting Pre Treatment SpO2 (%)96 % Pre Treatment Oxygen Deliveryroom air Post Treatment Patient Positionsitting Post Treatment SpO2 (%)98 % Post Treatment Oxygen Deliveryroom air Vision/Cognition: Affect/Mental Status (Cognitive)WNL Mobility/Tone: Bed Mobility Assessment/Interventionssupi ne to sit Cczsen-gk-Hzt Tift (Bed Mobility)minimum assist (75% patient effort); 1 person assist Assistive Device (Bed Mobility)bed rails Transfer Assessment/Interventionssit to stand transfer Sit-Stand Tift (Transfers)contact guard; 1 person assist Sit-Stand Assistive Device (Transfers)walker, front-wheeled Gait/Stairs Locomotiongait/ambulation independence; gait/ambulation assistive device; distance ambulated Gait Locomotion (Gait)contact guard; 1 person assist Assistive Device (Gait Training)walker, front-wheeled Distance in Feet (Gait Training)48 ft. Safety Issues Impacting Function (Mobility)positioning of assistive device; insight into deficits/self awareness Impairments Impacting Function (Mobility)balance; endurance/activity tolerance; pain; range of motion; strength Motor: Lower Extremity (Therapeutic Exercise)B/L: AP/circles/HR/TR's/LAQ's/sea socorro marches, alt./hip abd/hip add x10-12 reps each Sensory: Comment, Pre/Post Treatment PainC/o pain with bilateral LE's (calves). Pain LimitationFunctional mobility limited due pain Outcomes Tools: Turning from your back to your side while in a flat bed without using bedrails a lot Moving from lying on your back to sitting on the side of a flat bed without using bedrailsa lot Moving to and from bed to chair (including a wheelchair)a little Standing up from a chair using your arms (e.g. wheelchair or bedside chair)a little To walk in hospital rooma little Climbing 3-5 steps with railinga lot AM-PAC (PT) Total Score15 Short Term Goals: Bed Mobility: Date [id number] Bed Mobility: Tift Level Goalindependent Bed Mobility: Time Frame for Goal2 wks Transfer: Established Transfer: Transfer Type Fjoxffl-rk-evqle/chair-to-be d; rtj-dx-fefdt/mrulr-pu-fuw Transfer: Tift Level Goalmodified independent Transfer: Assistive Device Goalrolling walker Transfer: Time Frame for Goal2 wks Gait: Established Gait: Tift Level Goalmodified independent Gait: Assistive Device Goalrolling walker Gait: Distance [id number] Gait: Time Frame for Goal2 wks Miscellaneous: Established Miscellaneous: Goal DetailsPatient will demonstrate good understanding of use of AD during transfers and mobility patient will participate in 30 min PT session without fatigue or increase in pain Miscellaneous: Time Frame for Goal2 wks Outcome Summary: Progress: Physical Therapyprogress towards functional goals is fair Outcome Summary: Physical TherapyPt. laying in bed upon arrival, agreeable to therapy. Bed alarm is not on. Min assist with sitting up to side of the bed. Pt. is wearing a back brace at this time. Pt. walked 48ft with walker with no LOB noted. C/o lower leg discomfort with gait. Minimal cues were needed with guiding the walker/hand placement. Pt. seated in recliner where she was able to complete TE without fatigue. Call light within reach. Continue with POC and progress per tolerance to improve endurance and ease with ambulation. LUIS Electronic Signatures: Paulina Snyder (TRANSPORTATION COORDINATOR) (Signed 17-Apr-2023 11:30) Authored: Info, Vision/Cognition, Mobility/Tone, Motor, Sensory, Outcomes Tools, Short Term Goals, Outcome Summary Clarita Vazquez (PT) (Signed 18-Apr-2023 08:36) Co-Signer: Info, Vision/Cognition, Mobility/Tone, Motor, Sensory, Outcomes Tools, Short Term Goals, Outcome Summary Last Updated: 18-Apr-2023 08:36 by Clarita Vazquez (PT) Normal [facility] SARS-CoV-2 (COVID-19) RNA NA A+probe Ql (Resp)on 04-17-2023 SARS-related CoV RNA COBY+probe Ql (Resp) Not detected Not Detected [facility] Comment on above: . This test has received FDA Emergency Use Authorization (EUA) and has been verified by [facility]. This test is only authorized for the duration of time that circumstances exist to justify the authorization of the emergency use of in vitro diagnostic tests for the detection of SARS-CoV-2 virus and/or diagnosis of COVID-19 infection under section 564(b)(1) of the Act, 21 U.S.C. 360bbb-3(b)(1), unless the authorization is terminated or revoked sooner. [facility] is certified under CLIA-88 as qualified to perform high complexity testing. Testing is performed in the [facility] laboratory located at [address] [place] [address]. SARS-CoV-2/Flu/RSV Multiplex Test: Fact sheet for providers: https://www.fda.gov/media/654050/download Fact sheet for patients: https://www.fda.gov/media/923532/download [facility] APTTon 04-16-2023 aPTT Coag (Bld) [Time] 27 s Normal 27 - 38 [facility] Comment on above: Result Comment: Note new reference range as of 01/07/2023 at 10:00am. Performed By: #### A PTT #### [place] [address] Admission Risk Screen - Adul ton 04-16-2023 Admission Risk Screen - Adult Allergies: Intolerances: codeine: GI Upset, Nausea/Vomiting Patient Verification: New W ID Band Applied in my Departmentno Type of ID Patient is WearingW wristband, but not applied here Patient Transferred from Other Facility ([facility], [facility],etc)no Patient Identity Verified Bypatient ID Band FULL Name, include Middle, spelling matches patient's ID used for verificationyes ID Band Matches Patient ID used for Verficationyes ID Band MRN Matches EMR MRNyes Visitor Restriction: Coronavirus Visitor Restriction: Reasonable restrictions to in-person visitors will be observed due to current coronavirus pandemic. Travel History: COVID-19 Screening Completedno exposure or symptoms Travel or Exposure Past 30 DaysNO travel to International locations in the past 30 days Ebola AlertFor Ebola-like Symptoms: Isolate Patient and Notify Provider/Plaster Caster For Contact: Notify Provider/Plaster Caster Advance Directive: Advance Directive/DNRyes Advance Directive typeDNR- CCA DNR-CCA Availabilityplaced on chart DNR-CCA Placed on [id number] [place] Fall Screen: History of falling (immediate or previous)no (0) Secondary Diagnosisyes (15) Intravenous Therapy/ Heparin/Saline Lockyes (20) Gait/Transferringweak (10) Ambulatory Aidscrutches/walker/cane (15) Mental Statusoriented to own ability (0) Score: Low risk (<25). Moderate risk (25-44). High risk (>44).60 [place] InterventionsHIGH INTERVENTIONS *Low and Moderate Interventions Plus: * supervised toileting at all times Family Violence Screen: Are you or have you been threatened or abused physically, emotionally, or sexually by anyoneno Has anyone ever threatened to hurt your family or your petsno Does anyone try to keep you from having/contacting other friends or doing things outside your homeno Do you feel UNSAFE going back to the place where you are livingno Do you feel anyone has exploited or taken advantage of you financially or of your personal propertyno Clinical assessment: Are there any apparent signs of injuries/behaviors that could be related to abuse/neglectno Social Service Consult for abuse/neglect needed this visitno Functional Screen: Functional Screen: In the recent/past 2-4 weeks, patient or family have noticedno issues that require a speech/language consult at this time AM-PAC- Basic Mobility/Daily Activity: Patient baseline bedboundno Turning from your back to your side while in a flat bed without using bedrailsa lot Moving from lying on your back to sitting on the side of a flat bed without using bedrailsa lot Moving to and from bed to chair (including a wheelchair)a lot Standing up from a chair using your arms (e.g. wheelchair or bedside chair)a lot To walk in hospital rooma lot Climbing 3-5 steps with railinga lot Basic Mobility - Total Score12 Putting on and taking off regular lower body clothinga lot Bathing (including washing, rinsing, drying)a lot Putting on and taking off regular upper body clothinga lot Toileting, which includes using toilet, bedpan or urinala lot Taking care of personal grooming such as brushing teetha lot Eating Mealsa lot Daily Activity - Total Score12 Learning Assessment (Patient): Patient is Able to be Assessed for Learningyes Factors Influencing Readiness to Learnacuteness of illness Factors that Impact Ability to Learnacuteness of illness Devices/Methods Used to Communicatenone Learning Preferencesverbal instruction Cultural Considerationsnone Developmental Considerationsnone Roman Catholic Considerationsreligious considerations Other Learnersfamily Learning Assessment (Other Learner): Other learner availableno Depression Screen: During the past month, have you often been bothered by feeling down, depressed or hopelessno During the past month, have you often had little interest or pleasure in doing thingsno Have you had any thoughts of harming anyone elseno Danielson Suicide: Risk Screen Not Applicable/Able to Answerable to be screened In the Past Month: Have you wished you were or could go to sleep and not wake upno In the Past Month: Have you had any actual thoughts of killing yourselfno Lifetime: Have you ever done, started to do, or prepared to do anything to end your lifeno Danielson Suicide Risknegative Adult Nutrition Screen: Have you recently lost weight without tryingno Have you been eating poorly because of a decreased appetiteno Malnutrition Screening Tool Score0 Malnutrition Screening Tool RiskMST = 0 or 1 Not at risk. Eating well with little or no weight loss Nutrition Consult needed this visitno Can Patient Participate in Room Serviceyes Patient requires Paper Dishes/Plastic Utensilsno Pain Screen: Pain Scalenumerical 0-10 Pain Scale Educationteaching provided Current Pain Level5 = Moderate Acceptable Pain Level2 = Mild Expression of P (more content not included)... Normal [facility] BASIC METABOLIC PANELon 09-2 Sodium [Moles/Vol] 130 mmol/L Low 136 - 145 [facility] Comment on above: Performed By: #### C BCDF #### [address] [address] eGFR FEMALE >90 Normal >90 [facility] Comment on above: Result Comment: CALC ULATIONS OF ESTIMATED GFR ARE PERFORMED USING THE 2020 CKD-EPI STUDY REFIT EQUATION WITHOUT THE RACE VARIABLE FOR THE IDMS-TRACEABLE CREATININE METHODS. https://jasn.asnjournals.org/content/early//ASN.54022027 88 Performed By: #### C BCDF #### [address] [address] HCO3 (Bld) [Moles/Vol] 30 mmol/L Normal 21 - 32 [facility] Comment on above: Performed By: #### C BCDF #### [address] [address] Anion gap [Moles/Vol] 10 mmol/L 10 - 20 mmol/L [facility] Comment on above: Performed By: #### C BCDF #### [address] [address] Calcium [Mass/Vol] 9.1 mg/dL 8.6 - 10. 3 mg/dL [facility] Comment on above: Performed By: #### C BCDF #### [address] [address] Chloride [Moles/Vol] 94 mmol/L Low 98 - 107 mmol/L [facility] Comment on above: Performed By: #### C BCDF #### [address] [address] Creatinine [Mass/Vol] 0.49 mg/dL Low 0.50 - 1.05 mg/dL [facility] Comment on above: Performed By: #### C BCDF #### [address] [address] Glucose [Mass/Vol] 136 mg/dL High 74 - 99 mg/dL [facility] Comment on above: Performed By: #### C BCDF #### [place] [id number] Potassium [Moles/Vol] 3.6 mmol/L 3.5 - 5.3 mmol/L [facility] Comment on above: Performed By: #### C BCDF #### [address] [address] Urea nitrogen [Mass/Vol] 14 mg/dL 6 - 23 mg/dL [facility] Comment on above: Performed By: #### C BCDF #### [address] [address] Basic metabolic 2000 panelon 04-16-2023 CO2 [Moles/Vol] 30 mmol/L 21 - 32 mmol/L [facility] GFR Female >90 - PINF [facility] Comment on above: CALCULATIONS OF GAYLE MATED GFR ARE PERFORMED USING THE 2020 CKD-EPI STUDY REFIT EQUATION WITHOUT THE RACE VARIABLE FOR THE IDMS-TRACEABLE CREATININE METHODS. https://jasn.asnjournals.org/content/early/ASN.83081409 88 Interpretation and review of laboratory results Abnormal [facility] Sodium [Moles/Vol] 130 mmol/L Low 136 - 145 mmol/L [facility] CHEST 1 VIEWon 04-16-2023 CHEST 1 VIEW Patient Name: CHRISTINE MAYS STUDY: CHEST 1 VIEW; 04/15/2023 10:14 pm INDICATION: syncope . COMPARISON: 10/18/2021 ACCESSION NUMBER(S): [id number] ORDERING CLINICIAN: ERWIN ARMAS FINDINGS: The cardiac silhouette is enlarged. There is no consolidation. There is no effusion. There is no edema. Low lung volumes noted. Vascular calcifications. IMPRESSION: Enlarged cardiac silhouette. No consolidation or edema. Electronically signed by: WILFREDO GALLOWAY MD Normal [facility] COMPREHENSIVE PANELon 2022 Albumin [Mass/Vol] 3.2 g/dL Low 3.4 - 5.0 [facility] Comment on above: Performed By: #### C BCDF #### [address] [address] ALP [Catalytic activity/Vol] 57 U/L Normal 33 - 136 [facility] Comment on above: Performed By: #### C BCDF #### [address] [address] ALT [Catalytic activity/Vol] 14 U/L Normal 7 - 45 [facility] Comment on above: Result Comment: Ofelia ents treated with Sulfasalazine may generate falsely decreased results for ALT. Performed By: #### C BCDF #### [address] [address] Anion gap [Moles/Vol] 10 mmol/L Normal 10 - 20 [facility] Comment on above: Performed By: #### C BCDF #### [address] [address] AST [Catalytic activity/Vol] 15 U/L Normal 9 - 39 [facility] Comment on above: Performed By: #### C BCDF #### [address] [address] Bilirubin [Mass/Vol] 0.2 mg/dL Normal 0.0 - 1.2 [facility] Comment on above: Performed By: #### C BCDF #### [address] [address] Calcium [Mass/Vol] 8.8 mg/dL Normal 8.6 - 10.3 [facility] Comment on above: Performed By: #### C BCDF #### [address] [address] Chloride [Moles/Vol] 94 mmol/L Low 98 - 107 [facility] Comment on above: Performed By: #### C BCDF #### [address] [address] Creatinine [Mass/Vol] 0.73 mg/dL Normal 0.50 - 1.05 [facility] Comment on above: Performed By: #### C BCDF #### [address] [address] GFR/1.73 sq M.predicted among non-blacks MDRD (S/P/Bld) [Vol rate/Area] 83 mL/min/{1.73_m2} Normal >90 [facility] Comment on above: Result Comment: CALC ULATIONS OF ESTIMATED GFR ARE PERFORMED USING THE 2020 CKD-EPI STUDY REFIT EQUATION WITHOUT THE RACE VARIABLE FOR THE IDMS-TRACEABLE CREATININE METHODS. https://jasn.asnjournals.org/content//ASN.16269210 88 Performed By: #### C BCDF #### [address] [address] Glucose [Mass/Vol] 103 mg/dL High 74 - 99 [facility] Comment on above: Performed By: #### C BCDF #### [address] [address] HCO3 (Bld) [Moles/Vol] 29 mmol/L Normal 21 - 32 [facility] Comment on above: Performed By: #### C BCDF #### [address] [address] Potassium [Moles/Vol] 3.2 mmol/L Low 3.5 - 5.3 [facility] Comment on above: Performed By: #### C BCDF #### [address] [address] Protein [Mass/Vol] 5.0 g/dL Low 6.4 - 8.2 [facility] Comment on above: Performed By: #### C BCDF #### [address] [address] Sodium [Moles/Vol] 130 mmol/L Low 136 - 145 [facility] Comment on above: Performed By: #### C BCDF #### [address] [address] Urea nitrogen [Mass/Vol] 24 mg/dL High 6 - 23 [facility] Comment on above: Performed By: #### C BCDF #### [address] [address] CREATINE KINASEon 04-16-2023 CK [Catalytic activity/Vol] 16 U/L Normal 0 - 215 [facility] Comment on above: Performed By: #### L IPID #### [address] [address] [address] ANGIO CHEST FOR PEon 03-22 CT ANGIO CHEST FOR PE STUDY: CT Angiogram of the Chest; 04/15/2023 at 11:21 PM INDICATION: Patient had laminectomy approximately 12 days ago and is having back pain, and pain shooting down legs. Syncopal episode while sitting in chair. Concern for PE. Additional history: Hypertension. Heart disease. Former smoker. Cholecystectomy. Hysterectomy. COMPARISON: None available. ACCESSION NUMBER(S): [id number] ORDERING CLINICIAN: ERWIN ARMAS DO TECHNIQUE: CTA of the chest was performed with intravenous contrast. Images are reviewed and processed at a workstation according to the CT angiogram protocol with 3-D and/or MIP post processing imaging generated. Automated mA/kV exposure control was utilized and patient examination was performed in strict accordance with principles of ALARA. FINDINGS: There is a small non-occlusive pulmonary embolism within a segmental branch to the medial basal right lower lobe. There are no detectable emboli to the left lung. The main pulmonary arteries remain patent and are top normal caliber. Heart is top normal size with no appreciable heart strain. There are minimal coronary artery calcifications. The lungs demonstrate minimal bibasilar atelectasis. There is no definite pneumonia. There are no pleural effusions. There is no pneumothorax. Small lymph nodes are seen in the mediastinum. There is no detectable mass. There is no pericardial effusion. There is a moderate hiatal hernia projecting posterior to the heart. Minimal arthritis is seen in the lower thoracic spine. Upper abdomen reveals previous cholecystectomy with marked dilatation of the common bile duct. IMPRESSION: 1. Positive exam for small non-occlusive segmental pulmonary embolism to the right lower lobe. 2. The main pulmonary arteries remain patent and normal caliber; no appreciable right heart strain. 3. Incidental marked dilatation common bile duct following previous cholecystectomy: advise further evaluation when clinically appropriate. 4. Remainder as above. 5. Urgent findings discussed with and acknowledged by Dr. Erwin Armas at 12:02 AM Eastern on 04/16/2023. Signed by Evan Vargas MD Electronically signed by: EVAN VARGAS MD [facility] CT Chest W contrast IV and C T angiogram Pulmonary arteries for pulmonary embolus W contrast Anna 04-16-2023 1. Positive exam for small non-occlusive segmental pulmonary embolism to the right lower lobe. 2. The main pulmonary arteries remain patent and normal caliber; no appreciable right heart strain. 3. Incidental marked dilatation common bile duct following previous cholecystectomy: advise further evaluation when clinically appropriate. 4. Remainder as above. 5. Urgent findings discussed with and acknowledged by Dr. Erwin Armas at 12:02 AM Eastern on 04/16/2023. Signed by Evan Vargas MD [facility] Interpreted By: EVAN FISHER MD STUDY: CT Angiogram of the Chest; 04/15/2023 at 11:21 PM INDICATION: Patient had laminectomy approximately 12 days ago and is having back pain, and pain shooting down legs. Syncopal episode while sitting in chair. Concern for PE. Additional history: Hypertension. Heart disease. Former smoker. Cholecystectomy. Hysterectomy. COMPARISON: None available. ACCESSION NUMBER(S): [id number] ORDERING CLINICIAN: ERWIN ARMAS DO TECHNIQUE: CTA of the chest was performed with intravenous contrast. Images are reviewed and processed at a workstation according to the CT angiogram protocol with 3-D and/or MIP post processing imaging generated. Automated mA/kV exposure control was utilized and patient examination was performed in strict accordance with principles of ALARA. FINDINGS: There is a small non-occlusive pulmonary embolism within a segmental branch to the medial basal right lower lobe. There are no detectable emboli to the left lung. The main pulmonary arteries remain patent and are top normal caliber. Heart is top normal size with no appreciable heart strain. There are minimal coronary artery calcifications. The lungs demonstrate minimal bibasilar atelectasis. There is no definite pneumonia. There are no pleural effusions. There is no pneumothorax. Small lymph nodes are seen in the mediastinum. There is no detectable mass. There is no pericardial effusion. There is a moderate hiatal hernia projecting posterior to the heart. Minimal arthritis is seen in the lower thoracic spine. Upper abdomen reveals previous cholecystectomy with marked dilatation of the common bile duct. [facility] Evan Vargas MD - 04/16/2023 Interpreted By: EVAN VARGAS MD STUDY: CT Angiogram of the Chest; 04/15/2023 at 11:21 PM INDICATION: Patient had laminectomy approximately 12 days ago and is having back pain, and pain shooting down legs. Syncopal episode while sitting in chair. Concern for PE. Additional history: Hypertension. Heart disease. Former smoker. Cholecystectomy. Hysterectomy. COMPARISON: None available. ACCESSION NUMBER(S): [id number] ORDERING CLINICIAN: ERWIN ARMAS DO TECHNIQUE: CTA of the chest was performed with intravenous contrast. Images are reviewed and processed at a workstation according to the CT angiogram protocol with 3-D and/or MIP post processing imaging generated. Automated mA/kV exposure control was utilized and patient examination was performed in strict accordance with principles of ALARA. FINDINGS: There is a small non-occlusive pulmonary embolism within a segmental branch to the medial basal right lower lobe. There are no detectable emboli to the left lung. The main pulmonary arteries remain patent and are top normal caliber. Heart is top normal size with no appreciable heart strain. There are minimal coronary artery calcifications. The lungs demonstrate minimal bibasilar atelectasis. There is no definite pneumonia. There are no pleural effusions. There is no pneumothorax. Small lymph nodes are seen in the mediastinum. There is no detectable mass. There is no pericardial effusion. There is a moderate hiatal hernia projecting posterior to the heart. Minimal arthritis is seen in the lower thoracic spine. Upper abdomen reveals previous cholecystectomy with marked dilatation of the common bile duct. IMPRESSION: 1. Positive exam for small non-occlusive segmental pulmonary embolism to the right lower lobe. 2. The main pulmonary arteries remain patent and normal caliber; no appreciable right heart strain. 3. Incidental marked dilatation common bile duct following previous cholecystectomy: advise further evaluation when clinically appropriate. 4. Remainder as above. 5. Urgent findings discussed with and acknowledged by Dr. Erwin Armas at 12:02 AM Eastern on 04/16/2023. Signed by Evan Vargas MD [facility] Work Phone: CT Chest W contrast IV and C T angiogram Pulmonary arteries for pulmonary embolus W contrast IVOrdered By: Evan Vargas on 04-16-2023 [facility] Work Phone: CT L-SPINE W CONTRASTon 03-22 CT L-SPINE W CONTRAST STUDY: CT Lumbar Spine with IV Contrast; 04/15/2023 11:39 PM. INDICATION: Low back pain radiating into legs. History of laminectomy approximately 12 days ago. COMPARISON: MR lumbar 07/18/2022. XR lumbar 10/18/2021. ACCESSION NUMBER(S): [id number] ORDERING CLINICIAN: ERWIN ARMAS DO TECHNIQUE: CT of the lumbar spine was performed with intravenous contrast. Sagittal and coronal reconstructions were generated. Omnipaque 350 100 mL was administered intravenously. Automated mA/kV exposure control was utilized and patient examination was performed in strict accordance with principles of ALARA. FINDINGS: Bilateral transpedicular screws are demonstrated at the L3, L4, L5 levels with decompressive laminectomy at L3-4 and L4-5. No evidence of hardware complication. Grade 1 anterolisthesis of L4 on L5. Alignment is otherwise anatomic. Multiple Schmorl's nodes and/or mild compression fractures are seen involving the L2 and T11 vertebral bodies. No acute fracture or traumatic subluxation is otherwise demonstrated. Evaluation of the postoperative bed is suboptimal due to extensive metallic streak artifact. Small amount of fluid is suggested within the posterior paraspinal soft tissues, likely a postoperative seroma measuring up to 2.5 x 3.5 x 2.6 cm (AP, transverse, craniocaudal. No distinct area of abnormal enhancement or abscess identified. Soft tissue edema is also noted within the posterior paraspinal soft tissues, within normal limits for recent surgery. The vertebral body heights are otherwise well maintained. Vacuum disc phenomenon with mild to moderate disc space narrowing seen at the remaining lumbar levels. Remainder of the lumbar levels demonstrate no significant bony central canal stenosis. IMPRESSION: Postoperative changes from L3 through L5 as described without distinct evidence for hardware complication. Soft tissue edema is demonstrated within the posterior paraspinal soft tissues with small amount of fluid in the subcutaneous soft tissues, likely postoperative seroma. Postoperative bed is suboptimally evaluated due to extensive metallic streak artifact. No distinct enhancing lesion or drainable abscess identified. Signed by Sameera Bello MD Electronically signed by: SAMEERA BELLO MD [facility] CT Lumbar spine W contrast I Von 04-16-2023 Postoperative change s from L3 through L5 as described without distinct evidence for hardware complication. Soft tissue edema is demonstrated within the posterior paraspinal soft tissues with small amount of fluid in the subcutaneous soft tissues, likely postoperative seroma. Postoperative bed is suboptimally evaluated due to extensive metallic streak artifact. No distinct enhancing lesion or drainable abscess identified. Signed by Sameera Bello MD [facility] RADIOLOGY [facility] Interpreted By: SAMEERA RICHARDS MD STUDY: CT Lumbar Spine with IV Contrast; 04/15/2023 11:39 PM. INDICATION: Low back pain radiating into legs. History of laminectomy approximately 12 days ago. COMPARISON: MR lumbar 07/18/2022. XR lumbar 10/18/2021. ACCESSION NUMBER(S): [id number] ORDERING CLINICIAN: ERWIN ARMAS DO TECHNIQUE: CT of the lumbar spine was performed with intravenous contrast. Sagittal and coronal reconstructions were generated. Omnipaque 350 100 mL was administered intravenously. Automated mA/kV exposure control was utilized and patient examination was performed in strict accordance with principles of ALARA. FINDINGS: Bilateral transpedicular screws are demonstrated at the L3, L4, L5 levels with decompressive laminectomy at L3-4 and L4-5. No evidence of hardware complication. Grade 1 anterolisthesis of L4 on L5. Alignment is otherwise anatomic. Multiple Schmorl's nodes and/or mild compression fractures are seen involving the L2 and T11 vertebral bodies. No acute fracture or traumatic subluxation is otherwise demonstrated. Evaluation of the postoperative bed is suboptimal due to extensive metallic streak artifact. Small amount of fluid is suggested within the posterior paraspinal soft tissues, likely a postoperative seroma measuring up to 2.5 x 3.5 x 2.6 cm (AP, transverse, craniocaudal. No distinct area of abnormal enhancement or abscess identified. Soft tissue edema is also noted within the posterior paraspinal soft tissues, within normal limits for recent surgery. The vertebral body heights are otherwise well maintained. Vacuum disc phenomenon with mild to moderate disc space narrowing seen at the remaining lumbar levels. Remainder of the lumbar levels demonstrate no significant bony central canal stenosis. [facility] Sameera Bello MD - 04/16/2023 Interpreted By: SAMEERA BELLO MD STUDY: CT Lumbar Spine with IV Contrast; 04/15/2023 11:39 PM. INDICATION: Low back pain radiating into legs. History of laminectomy approximately 12 days ago. COMPARISON: MR lumbar 07/18/2022. XR lumbar 10/18/2021. ACCESSION NUMBER(S): [id number] ORDERING CLINICIAN: ERWIN ARMAS DO TECHNIQUE: CT of the lumbar spine was performed with intravenous contrast. Sagittal and coronal reconstructions were generated. Omnipaque 350 100 mL was administered intravenously. Automated mA/kV exposure control was utilized and patient examination was performed in strict accordance with principles of ALARA. FINDINGS: Bilateral transpedicular screws are demonstrated at the L3, L4, L5 levels with decompressive laminectomy at L3-4 and L4-5. No evidence of hardware complication. Grade 1 anterolisthesis of L4 on L5. Alignment is otherwise anatomic. Multiple Schmorl's nodes and/or mild compression fractures are seen involving the L2 and T11 vertebral bodies. No acute fracture or traumatic subluxation is otherwise demonstrated. Evaluation of the postoperative bed is suboptimal due to extensive metallic streak artifact. Small amount of fluid is suggested within the posterior paraspinal soft tissues, likely a postoperative seroma measuring up to 2.5 x 3.5 x 2.6 cm (AP, transverse, craniocaudal. No distinct area of abnormal enhancement or abscess identified. Soft tissue edema is also noted within the posterior paraspinal soft tissues, within normal limits for recent surgery. The vertebral body heights are otherwise well maintained. Vacuum disc phenomenon with mild to moderate disc space narrowing seen at the remaining lumbar levels. Remainder of the lumbar levels demonstrate no significant bony central canal stenosis. IMPRESSION: Postoperative changes from L3 through L5 as described without distinct evidence for hardware complication. Soft tissue edema is demonstrated within the posterior paraspinal soft tissues with small amount of fluid in the subcutaneous soft tissues, likely postoperative seroma. Postoperative bed is suboptimally evaluated due to extensive metallic streak artifact. No distinct enhancing lesion or drainable abscess identified. Signed by Sameera Bello MD [facility] Work Phone: CT Lumbar spine W contrast I VOrdered By: Sameera Bello on 04-16-2023 [facility] Work Phone: Cardiac echo study Procedure on 04-16-2023 [place] [address] [phone], TRANSTHORACIC ECHOCARDIOGRAM REPORT Patient Name: CHRISTINE Bustamante Physician: [id number] Michael Aggarwal MD Study Date: 04/16/2023 Referring [id number] Radhames Snowden Physician: MRN/PID: [id number] PCP: Accession/Order#: [id number] [address] Location: Date of : 1945 Fellow: Gender: F Nurse: Admit Date: 04/15/2023 Director Of Occupational Therapy: Carol Brock RVT, [facility] Admission Status: Inpatient - Additional Staff: Routine Height: 149.86 cm CC Report to: Weight: 68.95 kg Study Type: Echocardiogram BSA: 1.64 m2 Blood Pressure: 125 /44 mmHg Diagnosis/ICD: I26.09-Other pulmonary embolism with acute cor pulmonale Indication: PE Procedure/CPT: Echo Complete w Full [id number] Patient History: Pertinent History: No previous echo. Study Detail: The following Echo studies were performed: 2D, M-Mode, Doppler and color flow. Technically challenging study due to Done in chair. Definity used as a contrast agent for endocardial border definition. Total contrast used for this procedure was 1 mL via IV push. A bubble study was not performed. The patient was awake. PHYSICIAN INTERPRETATION: Left Ventricle: Left ventricular systolic function is normal, with an estimated ejection fraction of 60-65%. There are no regional wall motion abnormalities. The left ventricular cavity size is normal. There is mild asymmetric left ventricular hypertrophy. Spectral Doppler shows an impaired relaxation pattern of left ventricular diastolic filling. Left Atrium: The left atrium is normal in size. Right Ventricle: The right ventricle is normal in size. There is normal right ventricular global systolic function. Right Atrium: The right atrium is normal in size. Aortic Valve: The aortic valve is probably trileaflet. There is no evidence of aortic valve regurgitation. The peak instantaneous gradient of the aortic valve is 9.4 mmHg. The mean gradient of the aortic valve is 5.0 mmHg. Mitral Valve: The mitral valve is abnormal. There is mild mitral valve regurgitation. Calcified mitral annulus. Calcified nodule noted on the posterior leaflet of mitral valve. Tricuspid Valve: The tricuspid valve was not well visualized. There is trace tricuspid regurgitation. Pulmonic Valve: The pulmonic valve is not well visualized. There is moderate pulmonic valve regurgitation. Pericardium: There is no pericardial effusion noted. Aorta: The aortic root is normal. CONCLUSIONS: 1. Left ventricular systolic function is normal with a 60-65% estimated ejection fraction. 2. Spectral Doppler shows an impaired relaxation pattern of left ventricular diastolic filling. 3. There is mild asymmetric left ventricular hypertrophy. 4. Moderate pulmonic valve regurgitation. QUANTITATIVE DATA SUMMARY: 2D MEASUREMENTS: Normal Ranges: Ao Root d: 2.70 cm (2.0-3.7cm) LAs: 2.80 cm (2.7-4.0cm) IVSd: 1.12 cm (0.6-1.1cm) LVPWd: 1.19 cm (0.6-1.1cm) LVIDd: 2.67 cm (3.9-5.9cm) LVIDs: 1.63 cm LV Mass Index: 53.3 g/m2 LV % FS 39.0 % LA VOLUME: Normal Ranges: LA Vol A4C: 34.4 ml (22+/-6mL/m2) LA Vol A2C: 42.3 ml LA Vol BP: 38.5 ml LA Vol Index A4C: 21.0ml/m2 LA Vol Index A2C: 25.8 ml/m2 LA Vol Index BP: 23.4 ml/m2 LA Area A4C: 15.0 cm2 LA Area A2C: 16.5 cm2 LA Major Pa[place]ack A4C: 5.6 cm LA Major [place]ack A2C: 5.5 cm LA Volume Index: 23.6 ml/m2 LA Vol A4C: 34.1 ml LA Vol A2C: 38.7 ml M-MODE MEASUREMENTS: Normal Ranges: AoV Exc: 1.50 cm (1.5-2.5cm) AORTA MEASUREMENTS: Normal Ranges: AoV Exc: 1.50 cm (1.5-2.5cm) LV SYSTOLIC FUNCTION BY 2D PLANIMETRY (MOD): Normal Ranges: EF-A4C View: 66.2 % (>=55%) EF-A2C View: 55.2 % EF-Biplane: 60.8 % LV DIASTOLIC FUNCTION: Normal Ranges: MV Peak E: 0.97 m/s (0.7-1.2 m/s) MV Peak A: 1.24 m/s (0.42-0.7 m/s) E/A Ratio: 0.79 (1.0-2.2) MV e' 0.05 m/s (>8.0) MV lateral e' 0.06 m/s MV medial e' 0.05 m/s E/e' Ratio: 19.48 (<8.0) MITRAL VALVE: Normal Ranges: MV DT: 331 msec (150-240msec) MITRAL INSUFFICIENCY: Normal Ranges: MR Vmax: 329.00 cm/s AORTIC VALVE: Normal Ranges: AoV Vmax: 1.53 m/s (<=1.7m/s) AoV Peak P.4 mmHg (<20mmHg) AoV Mean P.0 mmHg (1.7-11.5mmHg) LVOT Max Clinton: 0.97 m/s (<=1.1m/s) AoV VTI: 39.70 cm (18-25cm) LVOT VTI: 26.00 cm LVOT Diameter: 2.00 cm (1.8-2.4cm) AoV Area, VTI: 2.06 cm2 (2.5-5.5cm2) AoV Area,Vmax: 1.99 cm2 (2.5- (more content not included)... Michael Moss MD - 04/16/2023 [place] [address] [phone], TRANSTHORACIC ECHOCARDIOGRAM REPORT Patient Name: CHRISTINE Bustamante Physician: [id number] Michael Aggarwal MD Study Date: 04/16/2023 Referring [id number] Radhames Ellis Marcello Physician: MRN/PID: [id number] PCP: Accession/Order#: [id number] [address] Location: Date of : 1945 Fellow: Gender: F Nurse: Admit Date: 04/15/2023 Director Of Occupational Therapy: ROXANNA Huber RVT Admission Status: Inpatient - Additional Staff: Routine Height: 149.86 cm CC Report to: Weight: 68.95 kg Study Type: Echocardiogram BSA: 1.64 m2 Blood Pressure: 125 /44 mmHg Diagnosis/ICD: I26.09-Other pulmonary embolism with acute cor pulmonale Indication: PE Procedure/CPT: Echo Complete w Full [id number] Patient History: Pertinent History: No previous echo. Study Detail: The following Echo studies were performed: 2D, M-Mode, Doppler and color flow. Technically challenging study due to Done in chair. Definity used as a contrast agent for endocardial border definition. Total contrast used for this procedure was 1 mL via IV push. A bubble study was not performed. The patient was awake. PHYSICIAN INTERPRETATION: Left Ventricle: Left ventricular systolic function is normal, with an estimated ejection fraction of 60-65%. There are no regional wall motion abnormalities. The left ventricular cavity size is normal. There is mild asymmetric left ventricular hypertrophy. Spectral Doppler shows an impaired relaxation pattern of left ventricular diastolic filling. Left Atrium: The left atrium is normal in size. Right Ventricle: The right ventricle is normal in size. There is normal right ventricular global systolic function. Right Atrium: The right atrium is normal in size. Aortic Valve: The aortic valve is probably trileaflet. There is no evidence of aortic valve regurgitation. The peak instantaneous gradient of the aortic valve is 9.4 mmHg. The mean gradient of the aortic valve is 5.0 mmHg. Mitral Valve: The mitral valve is abnormal. There is mild mitral valve regurgitation. Calcified mitral annulus. Calcified nodule noted on the posterior leaflet of mitral valve. Tricuspid Valve: The tricuspid valve was not well visualized. There is trace tricuspid regurgitation. Pulmonic Valve: The pulmonic valve is not well visualized. There is moderate pulmonic valve regurgitation. Pericardium: There is no pericardial effusion noted. Aorta: The aortic root is normal. CONCLUSIONS: 1. Left ventricular systolic function is normal with a 60-65% estimated ejection fraction. 2. Spectral Doppler shows an impaired relaxation pattern of left ventricular diastolic filling. 3. There is mild asymmetric left ventricular hypertrophy. 4. Moderate pulmonic valve regurgitation. QUANTITATIVE DATA SUMMARY: 2D MEASUREMENTS: Normal Ranges: Ao Root d: 2.70 cm (2.0-3.7cm) LAs: 2.80 cm (2.7-4.0cm) IVSd: 1.12 cm (0.6-1.1cm) LVPWd: 1.19 cm (0.6-1.1cm) LVIDd: 2.67 cm (3.9-5.9cm) LVIDs: 1.63 cm LV Mass Index: 53.3 g/m2 LV % FS 39.0 % LA VOLUME: Normal Ranges: LA Vol A4C: 34.4 ml (22+/-6mL/m2) LA Vol A2C: 42.3 ml LA Vol BP: 38.5 ml LA Vol Index A4C: 21.0ml/m2 LA Vol Index A2C: 25.8 ml/m2 LA Vol Index BP: 23.4 ml/m2 LA Area A4C: 15.0 cm2 LA Area A2C: 16.5 cm2 LA Major Paupack A4C: 5.6 cm LA Major Pa[place]ack A2C: 5.5 cm LA Volume Index: 23.6 ml/m2 LA Vol A4C: 34.1 ml LA Vol A2C: 38.7 ml M-MODE MEASUREMENTS: Normal Ranges: AoV Exc: 1.50 cm (1.5-2.5cm) AORTA MEASUREMENTS: Normal Ranges: AoV Exc: 1.50 cm (1.5-2.5cm) LV SYSTOLIC FUNCTION BY 2D PLANIMETRY (MOD): Normal Ranges: EF-A4C View: 66.2 % (>=55%) EF-A2C View: 55.2 % EF-Biplane: 60.8 % LV DIASTOLIC FUNCTION: Normal Ranges: MV Peak E: 0.97 m/s (0.7-1.2 m/s) MV Peak A: 1.24 m/s (0.42-0.7 m/s) E/A Ratio: 0.79 (1.0-2.2) MV e' 0.05 m/s (>8.0) MV lateral e' 0.06 m/s MV medial e' 0.05 m/s E/e' Ratio: 19.48 (<8.0) MITRAL VALVE: Normal Ranges: MV DT: 331 msec (150-240msec) MITRAL INSUFFICIENCY: Normal Ranges: MR Vmax: 329.00 cm/s AORTIC VALVE: Normal Ranges: AoV Vmax: 1.53 m/s (<=1.7m/s) AoV Peak P.4 mmHg (<20mmHg) AoV Mean P.0 mmHg (1.7-11.5mmHg) LVOT Max Clinton: 0.97 m/s (<=1.1m/s) AoV VTI: 39.70 cm (18-25cm) LVOT VTI: 26.00 cm LVOT Diameter: 2.00 cm (1.8-2.4cm) AoV Area, VTI: 2.06 cm2 (2.5-5.5cm2) AoV Area,Vmax: 1.99 cm2 (2.5-4.5cm2) AoV Dimensionless Index: 0.65 RIGHT VENTRICLE: RV Basal 3.32 cm RV Mid 2.08 cm RV Major 5.9 cm TAPSE: 18.7 mm PULMONIC VALVE: Normal Ranges: PV Accel Time: 113 msec (>120ms) PV Max Clinton: 0.9 m/s (0.6-0.9m/s) PV Max P.1 mmHg PIEDV: 0.91 m/s PADP: 6.3 mmHg [id number] Michael Aggarwal MD Electronically signed on 04/16/2023 at 1:07:45 PM Final (more content not included)... [facility] Work Phone: Cardiac echo study Procedure Ordered By: Michael Aggarwal on 04-16-2023 [facility] Work Phone: Clinical Event Noteon 2022 Clinical Event Note Clinical Event: Clinical Event Note: Details Patient was seen admitted overnight. Reviewed assessment plan and agree with it. Monitor clinically. Continue current management and transition to oral anticoagulants after bridging by pharmacy policy, follow electrolytes and replete as needed Electronic Signatures: Joaquin Meng) (Signed 16-Apr-2023 21:41) Authored: Clinical Event Note Last Updated: 16-Apr-2023 21:41 by Joaquin Meng) Normal [facility] D-DIMER, VTE EXCLUSIONon D-DIMER, VTE EXCLUSION 2533 ng/mL FEU Abnormal < or = 500 [facility] Comment on above: Result Comment: The VTE Exclusion D-Dimer assay is reported in ng/mL Fibrinogen Equivalent Units (FEU). Per manufacturers instructions for use, a value of less than 500 ng/mL (FEU) may help to exclude DVT or PE in outpatients when the assay is used with a clinical pretest probability assessment. (AEMR must utilize and document eCalc Wells Score Deep Vein Thrombosis Risk for DVT exclusion only; Emergency Department should utilize Guidelines for Emergency Department Use of the VTE Exclusion D-Dimer and Clinical Pretest probability assessment model for DVT or PE exclusion.) Performed By: #### A PTT #### [facility] [address] [place] [address] Discharge Planning [id number] 04-16-2023 Discharge Planning Note2 Discharge Planning: Needs Prior to Discharge (ex. Home Care Orders, IV/O2 prescriptions) HHC orders vs. Gold Form depending on disposition Discharge DestinationHC vs. SNF Patient/Teaching Associate Stated Goaltbd Anticipated Discharge [id number] Discharge Planning 04/16/2023 1106 DSC: Return referral sent to [place], awaiting response. Norma Mendez Care Navigation Team [phone] 04/16/2023 1037 Care Transitions/SW Note: Pt reviewed with care team this morning. ADOD is 24-48 hours. SW met with Pt at bedside. Pt arrived to hospital from [facility] for rehab stay. Pt had back surgery about 10 days ago. SW explained the TCC role of navigating patients through the discharge planning process and helping with needs. Verified address, contact information, insurance, pharmacy and DME supplier. Pt reports no difficulties affording/accessing food or medications. SW reviewed IM and Pt declined to sign d/t poor eyesight and Pt does not have her glasses with PT @ the hospital, SW left copy with Pt. Pt independent with all ADL/IADLs @ home when Pt is at baseline. Pt stated Pt would like to wait to hear recommendations from PT/OT and medical team prior to deciding on disposition. Pt stated Pt will opt either to d/c to home with HHC or return to [facility]. SW explained Pt right to choice of provider for SNF and HHC and Pt declined list for either service. Pt stated Pt's preference for HHC would be [facility] and preference for rehab would be to return to [facility]. Pt stated it was OK for SW to send referrals for both options while Pt makes final decision on disposition. SW requested DSC build and send referral in [facility] to [facility] and SW built and sent referral in [facility] to [facility]. 1445 SW received tc from [facility], stated they cannot accept Pt d/t lack of staffing in Pt's area of service. SW to deliver HHC list ot Pt. SW received phone call from [facility], stated Pt did not pay for a bed-hold and [facility] does not have a bed for Pt in the next 24-48 hours and, regardless, Pt would need new insurance auth. [facility] stated per Pt's functioning at time of discharge from [facility] and admit to hospital Pt was doing well enough with therapies that per [facility]'s evaluation Pt would probably be safe to d/c from hospital to home with HHC. SW/TC to follow for PT/OT evals and Pt choice of disposition. ARJUN met with Pt at bedside and updated Pt re: no bed available at [facility] and [facility] unable to accept. Pt has list of [facility] providers and intends to make a choice tomorrow. Pt leaning toward going home with [facility] but waiting to speak with dtr and to hear recommendation from PT. Care Transitions/SW to follow and assist as needed. HENRY Franklin 04/17/2023 1100 Care Transitions - Social Work: Pt reviewed in care rounds mtg this morning. Per medical team, Pt may be medically appropriate for d/c today, thought Pt's disposition is not yet confirmed. Pt's current [facility] scores are PT 15/ OT 18, appropriate for continuing rehab in a SNF. SW met with Pt at bedside to review plan. Pt states that Pt is feeling particularly groggy this morning. Pt would be willing to return to [facility], pending auth, but Pt may also just choose to d/c home today with new [facility], provider TBD. ARJUN spoke with [facility] who now has available bed, and could take Pt back, pending insurance auth. ARJUN asked [facility] Auth Team to submit for same; awaits result. Plan for Pt to return to [facility] pending re-auth, vs d/c home with Pt's , Pt's granddaughter, and new services through [facility] agency TBD. CT to follow and assist. HENRY Alfaro Assessment: Discharge Planning Assessment [id number] Primary Contact Name and NumberDerrAliza daughter [phone](1) Lives Withalone(1) Living Arrangementsnursing home(1) Stated Reason for Admissionpass out(1) [facility] Currently [facility](1) Resource/Environmental Concernsnone(1) Anticipated Transition [facility] term care facility(1) Services Anticipated at [employer] manager product management; rehabilitation services; shelter(1) Electronic Signatures: Norma Mendez (COOR) (Signed 16-Apr-2023 11:07) Authored: Discharge Planning, Assessment Tasha Marcelino) (Signed 16-Apr-2023 14:54) Authored: Discharge Planning Nayeli Young) (Signed 17-Apr-2023 12:12) Authored: Discharge Planning Last Updated: 17-Apr-2023 12:12 by Nayeli Young (HENRY) References: 1. Data Referenced From Patient Profile - Adult v2 16-Apr-2023 02:22 Normal [facility] EMR ADDONon 04-16-2023 ADDON CONFIRMATION REQUEST REC'D Normal [facility] Comment on above: Performed By: #### C BCDF #### [place] [address] Echocardiogramon 04-16-2023 Echocardiography [facility] nter [address] [place] [address] [phone], TRANSTHORACIC ECHOCARDIOGRAM REPORT Patient Name: CHRISTINE MAYS Reading Physician: [id number] Michael Aggarwal MD Study Date: 04/16/2023 Referring [id number] Radhames Snowden Physician: MRN/PID: [id number] PCP: Accession/Order#: [id number] [address] Location: Date of : 1945 Fellow: Gender: F Nurse: Admit Date: 04/15/2023 Director Of Occupational Therapy: ROXANNA Huber RVT Admission Status: Inpatient - Additional Staff: Routine Height: 149.86 cm CC Report to: Weight: 68.95 kg Study Type: Echocardiogram BSA: 1.64 m2 Blood Pressure: 125 /44 mmHg Diagnosis/ICD: I26.09-Other pulmonary embolism with acute cor pulmonale Indication: PE Procedure/CPT: Echo Complete w Full Doppler-[id number] Patient History: Pertinent History: No previous echo. Study Detail: The following Echo studies were performed: 2D, M-Mode, Doppler and color flow. Technically challenging study due to Done in chair. Definity used as a contrast agent for endocardial border definition. Total contrast used for this procedure was 1 mL via IV push. A bubble study was not performed. The patient was awake. PHYSICIAN INTERPRETATION: Left Ventricle: Left ventricular systolic function is normal, with an estimated ejection fraction of 60-65%. There are no regional wall motion abnormalities. The left ventricular cavity size is normal. There is mild asymmetric left ventricular hypertrophy. Spectral Doppler shows an impaired relaxation pattern of left ventricular diastolic filling. Left Atrium: The left atrium is normal in size. Right Ventricle: The right ventricle is normal in size. There is normal right ventricular global systolic function. Right Atrium: The right atrium is normal in size. Aortic Valve: The aortic valve is probably trileaflet. There is no evidence of aortic valve regurgitation. The peak instantaneous gradient of the aortic valve is 9.4 mmHg. The mean gradient of the aortic valve is 5.0 mmHg. Mitral Valve: The mitral valve is abnormal. There is mild mitral valve regurgitation. Calcified mitral annulus. Calcified nodule noted on the posterior leaflet of mitral valve. Tricuspid Valve: The tricuspid valve was not well visualized. There is trace tricuspid regurgitation. Pulmonic Valve: The pulmonic valve is not well visualized. There is moderate pulmonic valve regurgitation. Pericardium: There is no pericardial effusion noted. Aorta: The aortic root is normal. CONCLUSIONS: 1. Left ventricular systolic function is normal with a 60-65% estimated ejection fraction. 2. Spectral Doppler shows an impaired relaxation pattern of left ventricular diastolic filling. 3. There is mild asymmetric left ventricular hypertrophy. 4. Moderate pulmonic valve regurgitation. QUANTITATIVE DATA SUMMARY: 2D MEASUREMENTS: Normal Ranges: Ao Root d: 2.70 cm (2.0-3.7cm) LAs: 2.80 cm (2.7-4.0cm) IVSd: 1.12 cm (0.6-1.1cm) LVPWd: 1.19 cm (0.6-1.1cm) LVIDd: 2.67 cm (3.9-5.9cm) LVIDs: 1.63 cm LV Mass Index: 53.3 g/m2 LV % FS 39.0 % LA VOLUME: Normal Ranges: LA Vol A4C: 34.4 ml (22+/-6mL/m2) LA Vol A2C: 42.3 ml LA Vol BP: 38.5 ml LA Vol Index A4C: 21.0ml/m2 LA Vol Index A2C: 25.8 ml/m2 LA Vol Index BP: 23.4 ml/m2 LA Area A4C: 15.0 cm2 LA Area A2C: 16.5 cm2 LA Major [place] A4C: 5.6 cm LA Major [place] A2C: 5.5 cm LA Volume Index: 23.6 ml/m2 LA Vol A4C: 34.1 ml LA Vol A2C: 38.7 ml M-MODE MEASUREMENTS: Normal Ranges: AoV Exc: 1.50 cm (1.5-2.5cm) AORTA MEASUREMENTS: Normal Ranges: AoV Exc: 1.50 cm (1.5-2.5cm) LV SYSTOLIC FUNCTION BY 2D PLANIMETRY (MOD): Normal Ranges: EF-A4C View: 66.2 % (>=55%) EF-A2C View: 55.2 % EF-Biplane: 60.8 % LV DIASTOLIC FUNCTION: Normal Ranges: MV Peak E: 0.97 m/s (0.7-1.2 m/s) MV Peak A: 1.24 m/s (0.42-0.7 m/s) E/A Ratio: 0.79 (1.0-2.2) MV e' 0.05 m/s (>8.0) MV lateral e' 0.06 m/s MV medial e' 0.05 m/s E/e' Ratio: 19.48 (<8.0) MITRAL VALVE: Normal Ranges: MV DT: 331 msec (150-240msec) MITRAL INSUFFICIENCY: Normal Ranges: MR Vmax: 329.00 cm/s AORTIC VALVE: Normal Ranges: AoV Vmax: 1.53 m/s (<=1.7m/s) AoV Peak P.4 mmHg (<20mmHg) AoV Mean P.0 mmHg (1.7-11.5mmHg) LVOT Max Clinton: 0.97 m/s (<=1.1m/s) AoV VTI: 39.70 cm (18-25cm) LVOT VTI: 26.00 cm LVOT Diameter: 2.00 cm (1.8-2.4cm) AoV Area, VTI: 2.06 cm2 (2.5-5.5cm2) AoV Area,Vmax: 1.99 cm2 (2.5-4.5cm2) AoV Dimensionless Index: 0.65 RIGHT VENTRICLE: RV Basal 3.32 cm RV Mid 2.08 cm RV Major 5.9 cm TAPSE: 18.7 mm PULMONIC VALVE: Normal Ranges: PV Accel Time: 113 msec (>120ms) PV Max Clinton: 0.9 m/s (0.6-0.9m/s) PV Max P.1 mmHg PIEDV: 0.91 m/s PADP: 6.3 mmHg [id number] Michael Aggarwal MD Electronically signed on 04/16/2023 at 1:07:45 PM Final [facility] Goals of Care Noteon 023 Goals of Care Note PatientPatient Goals of Care: Outcome and Follow-up Plan: I discussed with the patient if she has any advanced directives. She said that she does. Her daughter Aliza is her healthcare proxy. We then discussed the CODE STATUS and what are the differences between being a Full Code versus a DNR (DO NOT RESUSCITATE). I first started by explaining that DNR does not mean do not treat. I then explained in details what does it mean to be a full code and what actions/procedures are taken when an individual has a cardiac/respiratory arrest and CPR (cardiopulmonary resuscitation) is done. I did explain that by definition, when there is no pulse, that means . CPR is an intervention that tries to reverse but not a treatment to prevent it from happening. While this is considered an appropriate intervention in many situations; however, for those with advanced medical problems, especially an underlying irreversible/progressive/inc urable disease, such an intervention can cause more harm than benefit and is most of the time considered futile. She said that her wishes is to remain full code but in case she ever ended up with a cardiac arrest and was successively resuscitated but remained dependent on ventilator, she would not want to further escalate and would request such a case withdrawal of Artificial means of life support 16 - 30 minutes Electronic Signatures: Radhames Morrison) (Signed 16-Apr-2023 03:52) Authored: GOC/ACP, Note Output Last Updated: 16-Apr-2023 03:52 by Radhames Morrison) [facility] HEPARIN ASSAY,UFHon 04-16-20 23 HEPARIN ASSAY,UFH 0.7 IU/mL [facility] Comment on above: Result Comment: The therapeutic reference range for UFH may be either 0.3-0.6 IU/mL or 0.3-0.7 IU/mL based on the clinical setting for anticoagulant therapy and the associated nomogram used. For heparin dosing guidelines based on clinical scenario and Heparin Assay results, please refer to local Pharmacy and the [facility] Guidelines for Anticoagulation therapy available on the [facility] intranet at: [email or web address]_[facility] itals_Guid elines_for_Anticoagu.aspx Performed By: #### C BCDF #### [place] [address] HEPARIN ASSAY,UFH 0.7 IU/mL Normal [facility] Comment on above: Result Comment: The therapeutic reference range for UFH may be either 0.3-0.6 IU/mL or 0.3-0.7 IU/mL based on the clinical setting for anticoagulant therapy and the associated nomogram used. For heparin dosing guidelines based on clinical scenario and Heparin Assay results, please refer to local Pharmacy and the [facility] Guidelines for Anticoagulation therapy available on the [facility] intranet at: [email or web address]_[facility] itals_Guid elines_for_Anticoagu.aspx Performed By: #### H AUF #### [place] [address] HEPARIN ASSAY,UFH 0.8 IU/mL Normal [facility] Comment on above: Result Comment: The therapeutic reference range for UFH may be either 0.3-0.6 IU/mL or 0.3-0.7 IU/mL based on the clinical setting for anticoagulant therapy and the associated nomogram used. For heparin dosing guidelines based on clinical scenario and Heparin Assay results, please refer to [facility] Pharmacy and the [facility] Guidelines for Anticoagulation therapy available on the [facility] intranet at: [email or web address]_[facility] ital_Guid elines_for_Anticoagu.aspx Performed By: #### C BCDF #### [place] [address] HEPARIN ASSAY,UFH 0.5 IU/mL Normal [facility] Comment on above: Result Comment: The therapeutic reference range for UFH may be either 0.3-0.6 IU/mL or 0.3-0.7 IU/mL based on the clinical setting for anticoagulant therapy and the associated nomogram used. For heparin dosing guidelines based on clinical scenario and Heparin Assay results, please refer to local Pharmacy and the [facility] Guidelines for Anticoagulation therapy available on the [facility] intranet at: [email or web address]_[facility] itals_Guid elines_for_Anticoagu.aspx Performed By: #### C BCDF #### [place] [address] Heparin unfractionated Chrom ogenic method Qn (PPP)on 04-16-2023 [facility] LACTATEon 04-16-2023 Lactate [Moles/Vol] 1.6 mmol/L Normal 0.4 - 2.0 [facility] Comment on above: Result Comment: Duyen puncture immediately after or during the administration of Metamizole may lead to falsely low results. Testing should be performed immediately prior to Metamizole dosing. Performed By: #### A PTT #### [place] [id number] Laboratory - Chemistry and C hemistry - challengeon 04-16-2023 Urate [Mass/Vol] 4.1 mg/dL 2.3 - 6.7 mg/dL [facility] Comment on above: Venipuncture immedia tely after or during the administration of Metamizole may lead to falsely low results. Testing should be performed immediately prior to Metamizole dosing. Laboratory - Coagulationon 0 04-16-2023 Heparin unfractionated Chromogenic method Qn (PPP) 0.7 IU/mL [facility] Comment on above: The therapeutic refe rence range for UFH may be either 0.3-0.6 IU/mL or 0.3-0.7 IU/mL based on the clinical setting for anticoagulant therapy and the associated nomogram used. For heparin dosing guidelines based on clinical scenario and Heparin Assay results, please refer to local Pharmacy and the [facility] Guidelines for Anticoagulation therapy available on the [facility] intranet at: [email or web address]/[place]_[facility] itals_Guid elines_for_Anticoagu.aspx Heparin unfractionated Chromogenic method Qn (PPP) 0.7 IU/mL [facility] Comment on above: The therapeutic refe rence range for UFH may be either 0.3-0.6 IU/mL or 0.3-0.7 IU/mL based on the clinical setting for anticoagulant therapy and the associated nomogram used. For heparin dosing guidelines based on clinical scenario and Heparin Assay results, please refer to local Pharmacy and the [facility] Guidelines for Anticoagulation therapy available on the [facility] intranet at: [email or web address]/Pharmacy/Pages/[place]_[facility] itals_Guid elines_for_Anticoagu.aspx Heparin unfractionated Chromogenic method Qn (PPP) 0.8 IU/mL [facility] Comment on above: The therapeutic refe rence range for UFH may be either 0.3-0.6 IU/mL or 0.3-0.7 IU/mL based on the clinical setting for anticoagulant therapy and the associated nomogram used. For heparin dosing guidelines based on clinical scenario and Heparin Assay results, please refer to local Pharmacy and the [facility] Guidelines for Anticoagulation therapy available on the [facility] intranet at: [email or web address]/Pharmacy/Pages/[place]_[facility] itals_Guid elines_for_Anticoagu.aspx Heparin unfractionated Chromogenic method Qn (PPP) 0.5 IU/mL [facility] Comment on above: The therapeutic refe rence range for UFH may be either 0.3-0.6 IU/mL or 0.3-0.7 IU/mL based on the clinical setting for anticoagulant therapy and the associated nomogram used. For heparin dosing guidelines based on clinical scenario and Heparin Assay results, please refer to local Pharmacy and the [facility] Guidelines for Anticoagulation therapy available on the [facility] intranet at: [email or web address]/Pharmacy/Pages/[place]_[facility] itals_Guid elines_for_Anticoagu.aspx aPTT Coag (PPP) [Time] 27 s [facility] Comment on above: Note new reference edsi miguel as of 01/07/2023 at 10:00am. PT Coag (PPP) [Time] 12.7 s [facility] Comment on above: Note new reference desi miguel as of 01/07/2023 at 10:00am. MAGNESIUMon 04-16-2023 Magnesium [Mass/Vol] 1.57 mg/dL Low 1.60 - 2.40 [facility] Comment on above: Performed By: #### A PTT #### [facility] [address] [place] [address] No Panel Informationon 04-16 [facility] Radiology Study observation (narrative) [facility] Work Phone: OT Evaluation v2-occupationa l therapyon 04-16-2023 OT Evaluation v2-occupational therapy Rehab: Info: Mode of Treatmentoccupational therapy Time IN14:54 Time OUT15:30 Total Treatment [id number] Total Minutes Commentco-eval with PT Clarita Patient in ... at end of sessionbed, 2 railings up; purwick in place, call light in reach, HOB elevated for comfort. Pt friend in room Communicated with ... at end of sessionbedside nurse Patient Effortgood Symptoms Noted During/After Treatmentnone Patient Profile Reviewedyes Onset of Illness/Injury or Date of [id number] Reason for ReferralADls Referring PhysicianRaallen Patient/Family/Caregiver Comments/ObservationsSpoke with bed nurse who states patient is appropriate to be seen this pm. Patient awake in chair with company/family present. Agreeable to therapy and ambulation in person. patient states she has been at [facility] for rehab since her back surgery nearly 2 weeks ago. patient states she feels she needs a few more days of rehab before returning home. She is concerned about having to care for her as he needs assistance at home. 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 Prior to that was fully independent at home without any AD. She lives in a 2-story home but uses first floor. has walk in shower with shower bench and suction cup grab bars. Is currently using an FWW and is needing assistance for bed mobility. 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 Line and TubesIV; telemetry; andreea Pre Treatment SpO2 (%)97 % Pre Treatment Oxygen Deliveryroom air Pre Treatment Commentsno concerns on telemetry Vision/Cognition: Orientation Status (Cognition)oriented x 3 ROM: Upper Extremity: Range of Motionleft upper extremity ROM WFL; right upper extremity ROM WFL MMT: Upper Extremity: Manual Muscle Testing (MMT)left upper extremity strength WFL; right upper extremity strength WFL Mobility/Tone: Bed Mobility Assessment/Interventionssit to supine Zqz-[id number]-Pixubq Tift (Bed Mobility)moderate assist (50% patient effort); 1 person assist; for legs to get up into bed Transfer Assessment/Interventionssit to stand transfer; stand to sit transfer Sit-Stand Tift (Transfers)contact guard; 1 person assist; verbal cues Sit-Stand Assistive Device (Transfers)gait belt; walker, front-wheeled Stand-Sit Tift (Transfers)contact guard; 1 person assist Stand-Sit Assistive Device (Transfers)gait belt; walker, front-wheeled Gait/Stairs Locomotiongait/ambulation independence; gait/ambulation assistive device; distance ambulated Gait Locomotion (Gait)contact guard; 1 person assist Assistive Device (Gait Training)gait belt; walker, front-wheeled Distance in Feet (Gait Training)154ft Comment, Gait/Stairs Trainingambulating smoothly with FWW, no LOB Impairments Impacting Function (Mobility)balance; endurance/activity tolerance; strength; pain ADL: BADL Assessment/Interventionno formal ADLs completed during eval Impairments, BADL Safety/Performanceendurance/ activity tolerance; strength; trunk/postural control; range of motion; pain Sensory: Comment, Pre/Post Treatment Painback pain but no rating but felt better end of session after positioning her in bed Sensory General Assessmentno sensation deficits identified Health: Observed Emotional Statepleasant; cooperative Plan of Care Reviewed Withpatient; spouse; family; friend Impression: Criteria for Skilled Therapeutic Interventions Met (OT Eval)yes OT Diagnosisdecreased independence of activities of daily living Assessment (OT Eval)Pt demos need for skilled OT intervention at this level of care to address deficits in ADLs, IADLs, transfers, BUE ROM and strength, functional activity tolerance and safety awareness. Pt requires further education on LB ADLs and transfers with back precautions. Pt requires skilled OT intervention to return to PLOF safely. Rehab Potential (OT Eval)good, to achieve stated therapy goals Therapy Frequency (OT Eval)5 times/wk Predicted Duration of Therapy [id number] days Functional Limitations in Following Categoriesself-care; home management; community/leisure; mobility/gait Expected Duration Therapy [id number] minutes Planned Therapy Interventions (OT Eval)ADL retraining; IADL retraining; balance t (more content not included)... Normal [facility] Order Reconciliationon 04-16 Order Reconciliation Page 1 Admission Reconciliation Document Reconciliation Type: ED to Observation requested on behalf of Joaquin Meng (Physician) done by Joaquin Meng) ED to Observation - Reconciliation: 16-Apr-2023 03:37 by: Radhames Morrison) ED to Observation - AutoLinked: 16-Apr-2023 03:37 by: Radhames Morrison) ED to Observation - Reset to Incomplete: 18-Apr-2023 11:21 by: Joaquin Meng) ED to Observation - Reconciliation: 18-Apr-2023 11:22 by: Joaquin Meng) No Current Medications. Home MedicationsEnteredLast Dose TakenReconciled with current Order Reconciliation Comment/ Additional Information atenolol 25 mg oral tablet 1 tab(s) orally once a [id number] Atenolol Tablet (TENORMIN)DOSE = 25 mg Oral Dailyatenolol 25 mg oral tablet continued as the inpatient order Atenolol Eliquis Starter Pack for Treatment of DVT and PE 5 mg oral tablet 1 tab(s) orally 2 times a day 18-Apr-2023 Reviewed and Held levothyroxine 112 mcg (0.112 mg) oral tablet 1 tab(s) orally once a day 16-Apr-2023 Levothyroxine TabletDOSE = 112 microgram(s) Oral Daily levothyroxine 112 mcg (0.112 mg) oral tablet continued as the inpatient order Levothyroxine LORazepam 0.5 mg oral tablet 1 tab(s) orally once a day (at bedtime) 16-Apr-2023 LORazepam Tablet (ATIVAN)DOSE = 0.5 mg Oral At BedtimeLORazepam 0.5 mg oral tablet continued as the inpatient order LORazepam Robbins 5 mg-325 mg oral tablet 1 tab(s) orally every 6 hours, As Needed 16-Apr-2023 Reviewed and Held tiZANidine 2 mg oral tablet 1 tab(s) orally every 8 hours, As Needed 18-Apr-2023 tiZANidine Tablet (ZANAFLEX)DOSE = 2 mg Oral Every 8 Hours, PRN spasmtiZANidine 2 mg oral tablet continued as the inpatient order tiZANidine traMADol 50 mg oral tablet 1 tab(s) orally 2 times a day, As [id number] Reviewed and Held traZODone 50 mg oral tablet 1 tab(s) orally once a day (at bedtime)16-Apr-2023 traZODone Tablet (DESYREL)DOSE = 50 mg Oral At BedtimetraZODone 50 mg oral tablet continued as the inpatient order traZODone triamterene-hydrochlorothiaz rebeca 75mg-50mg oral tablet 1 tab(s) orally once a [id number] Reviewed and Held Additional Current Orders Acetaminophen Tablet (TYLENOL)DOSE = 650 mg Oral Every 4 Hours, PRN Pain - Mild (1-3) Acetaminophen Tablet (TYLENOL)DOSE = 650 mg Oral Every 4 Hours, PRN Temp Greater Than or Equal to 38.0 C Apixaban Tablet (ELIQUIS)DOSE = 10 mg Oral Every 12 HoursClinician Notes: Initial therapy duration is for 7 days.Notes from Pharmacy: Stop heparin drip upon first Apixaban administration. Apixaban Tablet (ELIQUIS)DOSE = 5 mg Oral Every 12 HoursClinician Notes: Maintenance therapy Heparin (Repeat Bolus) Injectable (High Intensity - VTE, CVT, Afib) IntraVenous Push Every 4 HoursRepeat Bolus Doses:If Heparin Assay is LESS than 0.1 Repeat Bolus of 4000 units.If Heparin Assay is between 0.1 and 0.2 Repeat Bolus of 2000 units.If Heparin Assay is between 0.3 and 0.7 (THERAPEUTIC) DO NOT BOLUS.If Heparin Assay is between 0.8 and 1.0 DO NOT BOLUS.If Heparin Assay is between 1.1 and 1.2 DO NOT BOLUS.If Heparin Assay is GREATER than 1.2 DO NOT BOLUS.If Heparin Assay is > 0.7, DO NOT BOLUS.Clinician Notes: Administer with Q 4 hour Heparin Assay result, beginning 4 hours after the drip initiation. Call physician with lab results. Heparin 25,000 units/ D5W 250 mL Infusion.. Solution (High Intensity - VTE, CVT, Afib)IntraVenous Admin Rate = 12 mL/hr DOSE Rate = 1,200 units/hrInfusion Rate Adjustments: If Heparin Assay is LESS than 0.1 INCREASE Infusion Rate by 200 units/ hr.If Heparin Assay is between 0.1 and 0.2 INCREASE Infusion Rate by 100 units/ hr. If Heparin Assay is between 0.3 and 0.7 (THERAPEUTIC) DO NOT CHANGE Infusion Rate.If Heparin Assay is between 0.8 and 1.0 REDUCE Infusion Rate by 100 units/ hr.If Heparin Assay is between 1.1 and 1.2 HOLD Infusion for 1 Hour then REDUCE Infusion Rate by 200 units/ hr.If Heparin Assay is GREATER than 1.2 HOLD infusion for 1 hour & repeat Heparin Assay: If repeat is between 0.3 and 0.7 REDUCE Infusion Rate by 300 units/ hr. If repeat is > 0.7, continue to HOLD INFUSION and Contact provider for further orders. Magnesium Hydroxide Oral Liquid (MILK OF MAGNESIA)DOSE = 10 mL Oral Every 24 Hours, PRN Constipation Morphine Injectable DOSE = 2 mg IntraVenous Push Every 4 Hours, PRN Pain - Severe (7-10) Ondansetron Injectable (ZOFRAN)DOSE = 4 mg IntraVenous Push Every 4 Hours, PRN Nausea and/or Vomiting Perflutren Lipid Microsphere (Activated) 1.3 mL / NaCL 0.9% T.V. 10 mL Injectable DOSE = 0.5 mL IntraVenous Push OnceCa.[id number] mL/Kg/DOSE x 69 Kg = 0.5 mL/Dose (Daily Total is 0.5 mL)Clinician Notes: 1. Dilute 1.3 mL of activated DEFINITY with 8.7 mL of normal saline in a 10 mL syringe.2. Inject 0.5 mL of diluted DEFINITY when notified the images/film are unclear to enhance view of Left Ventricular borders.3. Repeat 0.5 mL of DEFINITY until clear imag (more content not included)... Normal [facility] PT Coag (PPP) [Time]on 04-16 INR Coag (PPP) [Relative time] 1.1 {INR} 0.9 - 1.1 [facility] PT Evaluation v2-individual therapyon 04-16-2023 PT Evaluation v2-individual therapy Rehab: Info: Mode of Treatmentindividual therapy; physical therapy Time IN14:54 Time OUT15:30 Total Treatment [id number] Total Minutes Commentco-eval with OT Grecia Patient in ... at end of sessionbed, 2 railings up; purwick in place, call light in reach Communicated with ... at end of sessionbedside nurse Patient Effortgood Symptoms Noted During/After Treatmentnone Patient Profile Reviewedyes Onset of Illness/Injury or Date of [id number] Reason for Referralimpaired mobility Referring PhysicianRaallen Patient/Family/Caregiver Comments/ObservationsSpoke with bed nurse who states patient is appropriate to be seen this am. Patient awake in chair with company/family present. Agreeable to PT and ambulation in person. patient states she has been at [facility] for rehab since her back surgery nearly 2 weeks ago. patient states she feels she needs a few more days of rehab before returning home. She is concerned about having to care for her as he needs assistance at home. States her grandchildren have been helping her while she is recovering from surgery Pertinent History of Current Functional Problempatient admitted after being unresponsive with syncopal episode for 10 min at [facility] PMH: hypothyroid, lumbar radiculapathy, OA L3-5 back surgery 10 days ago Hearing Precautions/LimitationsWFL Precautions/Limitationsfall precautions; brace on when up; back brace Limitations/Impairmentsendur ance; safety/cognitive Developmental Statusindependent, age appropriate Ambulation Skills - Previous Level of Functionindependent Transfer Skills - Previous Level of Functionindependent ADL Skills - Previous Level of Functionindependent Living Arrangementspatient had back surgery 2 weeks ago. Prior to that was fully independent at home without any AD. She lives in a 2-story home but uses first floor. has walk in shower with shower bench and suction cup grab bars. Is currently using an FWW and is needing assistance for bed mobility Line and TubesIV; telemetry; andreea Pre Treatment SpO2 (%)97 % Pre Treatment Oxygen Deliveryroom air Pre Treatment Commentsno concerns on telemetry Vision/Cognition: Orientation Status (Cognition)oriented x 3 ROM: Lower Extremity: Range of Motionleft lower extremity ROM WFL; right lower extremity ROM WFL MMT: Lower Extremity: Manual Muscle Testing (MMT)grossly 4/5 Mobility/Tone: Bed Mobility Assessment/Interventionssit to supine Imt-ip-Cfgsct Tift (Bed Mobility)moderate assist (50% patient effort); 1 person assist; for legs to get up into bed Transfer Assessment/Interventionssit to stand transfer; stand to sit transfer Sit-Stand Tift (Transfers)contact guard; 1 person assist; verbal cues Sit-Stand Assistive Device (Transfers)gait belt; walker, front-wheeled Stand-Sit Tift (Transfers)contact guard; 1 person assist Stand-Sit Assistive Device (Transfers)gait belt; walker, front-wheeled Gait/Stairs Locomotiongait/ambulation independence; gait/ambulation assistive device; distance ambulated Gait Locomotion (Gait)contact guard; 1 person assist Assistive Device (Gait Training)gait belt; walker, front-wheeled Distance in Feet (Gait Training)154ft Comment, Gait/Stairs Trainingambulating smoothly with FWW, no LOB Impairments Impacting Function (Mobility)balance; endurance/activity tolerance; strength; pain Sensory: Comment, Pre/Post Treatment Painback pain but no rating but felt better end of session after positioning her in bed Health: Observed Emotional Statecooperative; pleasant Plan of Care Reviewed Withpatient Impression: Criteria for Skilled Therapeutic Interventions Met (PT Eval)yes; treatment indicated PT Diagnosisdifficulty walking Physical Therapy Prognosisgood Functional Level at Time of Evaluation (PT Eval)modA bed mobilty, CGa transfers and gait with FWW Patient/Family Goals Statement (PT Eval)improve mobility System Pathology/Pathophysiology Noted (PT Eval)musculoskeletal Impairments Found (PT Eval)aerobic capacity/endurance; gait, locomotion, and balance; muscle performance Functional Limitations in Following Categoriesself-care; home management; mobility/gait; stairs Disability: Inability to Perform Actions/Activities of Required Roles community/leisure Assessment (PT Eval)Skilled PT intervention is indicated due to patient presents with deficits in bed mobility, transfers, gait, stair negotiation, strength, activity tolerance, and safety awareness. Patient's PLOF is ocmplete independence with ADLS and mobility and she currently is needing up to modA. Extended physical therapy recommended for patient to continue her recovery and rehab following back surgery. Rehab Potential (PT Eval)good, to achieve stated therapy goals Therapy Frequency (PT Eval)once/day Predicted Duration of Therapy Interventioneval plus 13 days Expected Duration Therapy [id number] minutes Isabel (more content not included)... Normal [facility] PT/INRon 04-16-2023 PT Coag (PPP) [Time] 12.7 s Normal 9.8 - 12.8 [facility] Comment on above: Result Comment: Note new reference range as of 01/07/2023 at 10:00am. Performed By: #### C BCDF #### [address] [address] PT, INR 1.1 Normal 0.9 - 1.1 [facility] Comment on above: Performed By: #### C BCDF #### [address] [address] Patient Profile - Adult v2on 04-16-2023 Patient Profile - Adult v2 Profile: Initial Info: How to be AddressedMatha Spoken Language PreferredEnglish Source of Informationpatient Stated Reason for Admissionpass out Primary Contact Name and NumberDerrAliza daughter [phone] Wants Family/Rep Notified of Admissionno Notify PCPnotify PCP Informed of Patient Visiting [facility]yes [facility] Patient Belongingsremains with patient Patient Belongings Remaining with Patientcell phone/electronics; clothing Medications Brought to Hospitalno General Health: Blood Avoidance/Restrictionsnone Equipment Currently Used at Homewalker Weight in kg69 kilogram(s) Weight in fxl819.1 pound(s) Weight Methodactual (measured) Scale Typebed Height in cm149.8 centimeter(s) Height in feet4 feet Height in bzcepf44.98 inch(es) Height Methodstated BMI (kg/m2)30.748 square meter RSP Based Care: How would you like to participate in your careget involved What is the number one concern for you during this hospitalizationget better What is the most important thing we can do to support you during this hospitalizationpain control Is there anything we need to know to best care for megan Substance: Smoking Statusnever smoker (1) Alcohol Usedenies(1) Drug Usedenies (1) Health Mgmt: Symptoms/Conditions Managed at Homemusculoskeletal Musculoskeletal Symptoms/Conditionsback pain Musculoskeletal Managementmanaged Relationship/Environ: Resource/Environmental Concernsnone Primary Source of Support/Comfortchild(anatoliy) Lives Withalone Living Arrangementsnursing home Services Anticipated at Transitioncase manager product management; rehabilitation services; shelter Anticipated Transition [facility] Significant IndicatorsComplete Information Review: Allergies, Home Meds and Significant Events have been Reviewed and Verified with Patient/Familyyes ALLERGY, INTOLERANCE, ADVERSE EVENT: Intolerances: codeine: Drug, GI Upset, Nausea/Vomiting, Active Electronic Signatures: Alysia Castrejon (WILLIE) (Signed 16-Apr-2023 02:32) Authored: Initial Info, General Health, RSP Based Care, Substance, Health Mgmt, Relationship/Environ, Additional Information Last Updated: 16-Apr-2023 02:32 by Alysia Castrejon (WILLIE) References: 1. Data Referenced From Risk Screen - Adult Emergency" 15-Apr-2023 21:27 Normal [facility] TROPONIN I, HIGH SENSITIVITY on 04-16-2023 TROPONIN I, HIGH SENSITIVITY 7 ng/L Normal 0 - 13 [facility] Comment on above: Result Comment: . Less than 99th percentile of normal range cutoff- Female and children under 18 years old <14 ng/L; Male <21 ng/L: Negative Repeat testing should be performed if clinically indicated. . Female and children under 18 years old 14-50 ng/L; Male 21-50 ng/L: Consistent with possible cardiac damage and possible increased clinical risk. Serial measurements may help to assess extent of myocardial damage. . >50 ng/L: Consistent with cardiac damage, increased clinical risk and myocardial infarction. Serial measurements may help assess extent of myocardial damage. . NOTE: Children less than 1 year old may have higher baseline troponin levels and results should be interpreted in conjunction with the overall clinical context. . NOTE: Troponin I testing is performed using a different testing methodology at [facility] than at other [facility]. Direct result comparisons should only be made within the same method. Performed By: #### A PTT #### [facility] [address] [place] [address] URIC ACIDon 04-16-2023 Urate [Mass/Vol] 4.1 mg/dL Normal 2.3 - 6.7 [facility] Comment on above: Result Comment: Duyen puncture immediately after or during the administration of Metamizole may lead to falsely low results. Testing should be performed immediately prior to Metamizole dosing. Performed By: #### C BCDF #### [address] [address] URINALYSIS WITH CULTURE IF I NDICATEDon 04-16-2023 Appearance (U) CLEAR Normal CLEAR [facility] Comment on above: Performed By: #### A PTT #### [address] [address] Bilirubin Ql (U) Negative Normal NEGATIVE [facility] Comment on above: Performed By: #### A PTT #### [address] [address] Color (U) Straw Normal STRAW,YELLOW [facility] Comment on above: Performed By: #### A PTT #### [address] [address] Glucose Ql (U) Negative Normal NEGATIVE [facility] Comment on above: Performed By: #### A PTT #### [address] [address] Hemoglobin Ql (U) Negative Normal NEGATIVE [facility] Comment on above: Performed By: #### A PTT #### [address] [address] Ketones Ql (U) Negative Normal NEGATIVE [facility] Comment on above: Performed By: #### A PTT #### [address] [address] Leukocyte esterase Test strip Ql (U) Negative Normal NEGATIVE [facility] Comment on above: Performed By: #### A PTT #### [address] [address] Nitrite Ql (U) Negative Normal NEGATIVE [facility] Comment on above: Performed By: #### A PTT #### [address] [address] pH (U) 7.0 [pH] Normal 5.0 - 8.0 [facility] Comment on above: Performed By: #### A PTT #### [address] [address] Protein Ql (U) Negative Normal NEGATIVE [facility] Comment on above: Performed By: #### A PTT #### [address] [address] Specific gravity (U) [Rel density] 1.018 Normal 1.005 - 1.035 [facility] Comment on above: Performed By: #### A PTT #### [address] [address] Urobilinogen (U) [Mass/Vol] mg/dL Normal 0.0 - 1.9 [facility] Comment on above: Performed By: #### A PTT #### [address] [address] Urate [Mass/Vol]on [facility] Urinalysis complete W Reflex Culture panel (U)on 04-16-2023 Appearance (U) CLEAR CLEAR [facility] Bilirubin (U) [Mass/Vol] Negative NEGATIVE [facility] Color (U) Straw STRAW,YELLOW [facility] Glucose Auto test strip (U) [Mass/Vol] Negative NEGATIVE mg/dL [facility] Ketones (U) [Mass/Vol] Negative NEGATIVE mg/dL [facility] Leukocyte esterase Auto test strip Ql (U) Negative NEGATIVE [facility] Nitrite Auto test strip Ql (U) Negative NEGATIVE [facility] pH (U) 7.0 [pH] 5.0 - 8.0 [facility] Protein (U) [Mass/Vol] Negative NEGATIVE mg/dL [facility] RBC (U) [#/Vol] Negative NEGATIVE [facility] Specific gravity (U) [Rel density] 1.018 1.005 - 1.035 [facility] Urobilinogen (U) [Mass/Vol] mg/dL 0.0 - 1.9 mg/dL [facility] VASC LAB Venous Duplex Ultra sound DVTon 04-16-2023 VASC LAB Venous [place] [address] [phone], Vascular Lab Report Lower Venous Duplex Ultrasound Patient Name: CHRISTINE MAYS Reading Physician: [id number] Boo Mcnamara MD Study Date: 04/16/2023 Referring Physician: RADHAMES SNOWDEN MRN/PID: [id number] PCP: Accession/Order#: [id number] CC Report to: Date of : 1945 Technologist: Alyssa Lopez RVT Gender: F Technologist 2: Admission Status: Inpatient Location Performed: [facility] Diagnosis/ICD: R06.02-Shortness of breath Procedure/CPT: 20461 Peripheral venous duplex scan for DVT complete-14035 Pertinent History: Previous SVT. CONCLUSIONS: Right Lower Venous: No evidence of acute deep vein thrombus visualized in the right lower extremity. Left Lower Venous: No evidence of acute deep vein thrombus visualized in the left lower extremity. Comparison: Compared with study from 03/30/2021, Still negative for DVT. Former GSV thrombus was not seen on todays study. Imaging \\EANDE\\ Doppler Findings: Right Compressible Thrombus Flow Distal External Iliac Spontaneous/Phasic CFV Yes None Spontaneous/Phasic PFV Yes None FV Proximal Yes None Spontaneous/Phasic FV Mid Yes None FV Distal Yes None Popliteal Yes None Spontaneous/Phasic Peroneal Yes None PTV Yes None Left Compress Thrombus Flow Distal External Iliac Spontaneous/Phasic CFV Yes None Spontaneous/Phasic PFV Yes None FV Proximal Yes None Spontaneous/Phasic FV Mid Yes None FV Distal Yes None Popliteal Yes None Spontaneous/Phasic Peroneal Yes None PTV Yes None [id number] Boo Mcnamara MD Final Normal [facility] BASIC METABOLIC PANELon 03-22 Anion gap [Moles/Vol] 10 mmol/L Normal 10 - 20 [facility] Comment on above: Performed By: #### A PTT #### [place] [address] Calcium [Mass/Vol] 9.4 mg/dL Normal 8.6 - 10.3 [facility] Comment on above: Performed By: #### A PTT #### [address] [address] Chloride [Moles/Vol] 91 mmol/L Low 98 - 107 [facility] Comment on above: Performed By: #### A PTT #### [address] [address] Creatinine [Mass/Vol] 0.55 mg/dL Normal 0.50 - 1.05 [facility] Comment on above: Performed By: #### A PTT #### [address] [address] eGFR FEMALE >90 Normal >90 [facility] Comment on above: Result Comment: CALC ULATIONS OF ESTIMATED GFR ARE PERFORMED USING THE 2020 CKD-EPI STUDY REFIT EQUATION WITHOUT THE RACE VARIABLE FOR THE IDMS-TRACEABLE CREATININE METHODS. https://jasn.asnjournals.org/content/early/ASN.39338074 88 Performed By: #### A PTT #### [address] [address] Glucose [Mass/Vol] 98 mg/dL Normal 74 - 99 [facility] Comment on above: Performed By: #### A PTT #### [address] [address] HCO3 (Bld) [Moles/Vol] 33 mmol/L High 21 - 32 [facility] Comment on above: Performed By: #### A PTT #### [address] [address] Potassium [Moles/Vol] 3.8 mmol/L Normal 3.5 - 5.3 [facility] Comment on above: Performed By: #### A PTT #### [address] [address] Sodium [Moles/Vol] 130 mmol/L Low 136 - 145 [facility] Comment on above: Performed By: #### A PTT #### [address] [address] Urea nitrogen [Mass/Vol] 19 mg/dL Normal 6 - 23 [facility] Comment on above: Performed By: #### A PTT #### [address] [address] CBC AND DIFFERENTIALon 04-15 % AUTOMATED IMMATURE GRAN 2.5 % High 0.0 - 0.9 [facility] Comment on above: Result Comment: Aurora ture Granulocyte Count (IG) includes promyelocytes, myelocytes and metamyelocytes but does not include bands. Percent differential counts (%) should be interpreted in the context of the absolute cell counts (cells/L). Performed By: #### C BCDF #### [address] [address] Basophils (Bld) [#/Vol] 0.05 10*3/uL Normal 0.00 - 0.10 [facility] Comment on above: Performed By: #### C BCDF #### [address] [address] Basophils/100 WBC (Bld) 0.4 % Normal 0.0 - 2.0 [facility] Comment on above: Performed By: #### C BCDF #### [address] [address] Eosinophils (Bld) [#/Vol] 0.18 10*3/uL Normal 0.00 - 0.40 [facility] Comment on above: Performed By: #### C BCDF #### [address] [address] Eosinophils/100 WBC (Bld) 1.3 % Normal 0.0 - 6.0 [facility] Comment on above: Performed By: #### C BCDF #### [address] [address] Erythrocyte distribution width (RBC) [Ratio] 12.5 % Normal 11.5 - 14.5 [facility] Comment on above: Performed By: #### C BCDF #### [address] [address] Hematocrit (Bld) [Volume fraction] 29.4 % Low 36.0 - 46.0 [facility] Comment on above: Performed By: #### C BCDF #### [address] [address] Hemoglobin (Bld) [Mass/Vol] 9.8 g/dL Low 12.0 - 16.0 [facility] Comment on above: Performed By: #### C BCDF #### [address] [address] Lymphocytes (Bld) [#/Vol] 3.75 10*3/uL High 0.80 - 3.00 [facility] Comment on above: Performed By: #### C BCDF #### [address] [address] Lymphocytes/100 WBC (Bld) 27.3 % Normal 13.0 - 44.0 [facility] Comment on above: Performed By: #### C BCDF #### [address] [address] MCHC (RBC) [Mass/Vol] 33.3 g/dL Normal 32.0 - 36.0 [facility] Comment on above: Performed By: #### C BCDF #### [address] [address] MCV (RBC) [Entitic vol] 99 fL Normal 80 - 100 [facility] Comment on above: Performed By: #### C BCDF #### [address] [address] Monocytes (Bld) [#/Vol] 1.10 10*3/uL High 0.05 - 0.80 [facility] Comment on above: Performed By: #### C BCDF #### [address] [address] Monocytes/100 WBC (Bld) 8.0 % Normal 2.0 - 10.0 [facility] Comment on above: Performed By: #### C BCDF #### [address] [address] Neutrophils (Bld) [#/Vol] 8.31 10*3/uL High 1.60 - 5.50 [facility] Comment on above: Result Comment: Perc ent differential counts (%) should be interpreted in the context of the absolute cell counts (cells/L). Performed By: #### C BCDF #### [address] [address] Neutrophils/100 WBC (Bld) 60.5 % Normal 40.0 - 80.0 [facility] Comment on above: Performed By: #### C BCDF #### [address] [address] Platelets (Bld) [#/Vol] 449 10*3/uL Normal 150 - 450 [facility] Comment on above: Performed By: #### C BCDF #### [address] [address] RBC 2.96 x10E12/L Low 4.00 - 5.20 [facility] Comment on above: Performed By: #### C BCDF #### [address] [address] WBC (Bld) [#/Vol] 13.7 10*3/uL High 4.4 - 11.3 [facility] Comment on above: Performed By: #### C BCDF #### [address] [address] CBC W Auto Differential pane l (Bld)on 04-15-2023 Basophils (Bld) [#/Vol] 0.05 10*3/uL [facility] Basophils/100 WBC (Bld) 0.4 % 0.0 - 2.0 % [facility] Eosinophils (Bld) [#/Vol] 0.18 10*3/uL [facility] Eosinophils/100 WBC (Bld) 1.3 % 0.0 - 6.0 % [facility] Erythrocyte distribution width (RBC) [Ratio] 12.5 % 11.5 - 14.5 % [facility] Hematocrit (Bld) [Volume fraction] 29.4 % Low 36.0 - 46.0 % [facility] Hemoglobin (Bld) [Mass/Vol] 9.8 g/dL Low 12.0 - 16.0 g/dL [facility] Immature granulocytes/100 WBC (Bld) 2.5 % High 0.0 - 0.9 % [facility] Comment on above: Immature Granulocyte Count (IG) includes promyelocytes, myelocytes and metamyelocytes but does not include bands. Percent differential counts (%) should be interpreted in the context of the absolute cell counts (cells/L). Interpretation and review of laboratory results Abnormal [facility] Lymphocytes (Bld) [#/Vol] 3.75 10*3/uL High [facility] Lymphocytes/100 WBC (Bld) 27.3 % 13.0 - 44.0 % [facility] MCHC (RBC) [Mass/Vol] 33.3 g/dL 32.0 - 36.0 g/dL [facility] MCV (RBC) [Entitic vol] 99 fL 80 - 100 fL [facility] Monocytes (Bld) [#/Vol] 1.10 10*3/uL High [facility] Monocytes/100 WBC (Bld) 8.0 % 2.0 - 10.0 % [facility] Neutrophils (Bld) [#/Vol] 8.31 10*3/uL High [facility] Comment on above: Percent differential counts (%) should be interpreted in the context of the absolute cell counts (cells/L). Neutrophils/100 WBC (Bld) 60.5 % 40.0 - 80.0 % [facility] Platelets (Bld) [#/Vol] 449 10*3/uL [facility] RBC (Bld) [#/Vol] 2.96 10*6/uL Low [facility] WBC (Bld) [#/Vol] 13.7 10*3/uL High [facility] Comprehensive metabolic 2000 panelon 04-15-2023 Albumin BCP dye [Mass/Vol] 3.2 g/dL Low 3.4 - 5.0 g/dL [facility] ALP [Catalytic activity/Vol] 57 U/L 33 - 136 U/L [facility] ALT With P-5'-P [Catalytic activity/Vol] 14 U/L 7 - 45 U/L [facility] Comment on above: Patients treated wit h Sulfasalazine may generate falsely decreased results for ALT. Anion gap [Moles/Vol] 10 mmol/L 10 - 20 mmol/L [facility] AST With P-5'-P [Catalytic activity/Vol] 15 U/L 9 - 39 U/L [facility] Bilirubin [Mass/Vol] 0.2 mg/dL 0.0 - 1.2 mg/dL [facility] Calcium [Mass/Vol] 8.8 mg/dL 8.6 - 10. 3 mg/dL [facility] Chloride [Moles/Vol] 94 mmol/L Low 98 - 107 mmol/L [facility] CO2 [Moles/Vol] 29 mmol/L 21 - 32 mmol/L [facility] Creatinine [Mass/Vol] 0.73 mg/dL 0.50 - 1.05 mg/dL [facility] GFR Female 83 - PINF [facility] Comment on above: CALCULATIONS OF GAYLE MATED GFR ARE PERFORMED USING THE 2020 CKD-EPI STUDY REFIT EQUATION WITHOUT THE RACE VARIABLE FOR THE IDMS-TRACEABLE CREATININE METHODS. https://jasn.asnjournals.org/content//ASN.22253308 88 Glucose [Mass/Vol] 103 mg/dL High 74 - 99 mg/dL [facility] Potassium [Moles/Vol] 3.2 mmol/L Low 3.5 - 5.3 mmol/L [facility] Protein [Mass/Vol] 5.0 g/dL Low 6.4 - 8.2 g/dL [facility] Sodium [Moles/Vol] 130 mmol/L Low 136 - 145 mmol/L [facility] Urea nitrogen [Mass/Vol] 24 mg/dL High 6 - 23 mg/dL [facility] Fibrin D-dimer FEU (PPP) [Ma ss/Vol]on 04-15-2023 Interpretation and review of laboratory results Abnormal [facility] Laboratory - Chemistry and C hemistry - challengeon 04-15-2023 CK [Catalytic activity/Vol] 16 U/L 0 - 215 U/L [facility] Magnesium [Mass/Vol] 1.57 mg/dL Low 1.60 - 2.40 mg/dL [facility] Lactate [Moles/Vol] 1.6 mmol/L 0.4 - 2. 0 mmol/L [facility] Comment on above: Venipuncture immedia tely after or during the administration of Metamizole may lead to falsely low results. Testing should be performed immediately prior to Metamizole dosing. Laboratory - Coagulationon 0 04-15-2023 Fibrin D-dimer FEU (PPP) [Mass/Vol] 2533 Abnormal < or = 500 ng/mL FEU [facility] Comment on above: The VTE Exclusion D- Dimer assay is reported in ng/mL Fibrinogen Equivalent Units (FEU). Per manufacturers instructions for use, a value of less than 500 ng/mL (FEU) may help to exclude DVT or PE in outpatients when the assay is used with a clinical pretest probability assessment. ([facility] must utilize and document eCalc Wells Score Deep Vein Thrombosis Risk for DVT exclusion only; Emergency Department should utilize Guidelines for Emergency Department Use of the VTE Exclusion D-Dimer and Clinical Pretest probability assessment model for DVT or PE exclusion.) Lactate [Moles/Vol]on 2022 [facility] No Panel Informationon 04-15 Interpretation and review of laboratory results Abnormal [facility] Radiology Study observation (narrative) [facility] Work Phone: Provider Note - ED v3on 03-22 Provider Note - ED v3 Provider Note: Results/Vital Signs: Pediatric Clinical Scoring (NELLIE) is no recent NELLIE charted on this account Chart Review: ED NOTES ED NOTES: 78-year-old female presents status post syncopal episode. Patient states she had back surgery within the last 10 days and has been taking OxyContin for the pain. Patient is in pain when I examined her. Allegedly patient was unconscious for 10 to 12 minutes. Patient was hypotensive upon arrival. This did resolve after IV hydration. Patient continues to complain of back pain and will be given morphine sulfate 2 mg IV. Patient is wearing a binder at present. Patient denies any chest pain or shortness of breath. Patient was extremely diaphoretic when symptoms occurred. Patient denies any chest pain or shortness of breath at present. He has been given morphine sulfate 2 mg IV x2 to address her back pain. I did speak to the radiologist about the CT of the chest which shows a subsegmental pulmonary embolism. Patient will be started on heparin and admitted for further inpatient diagnostic studies and treatment. Patient has remained stable while here in the department. HISTORY OF PRESENTING ILLNESS CHRISTINE is a 78 year old Female and was seen by me at 15-Apr-2023 21:23 for a chief complaint of syncope (witnessed syncopal episode lasting approx 10-12 mins, BP for squad 72/30. recent back surgery)(1). The historian is the patientEMS. Triage Information: Most recent Vital Sign Value Date Temp (F): 96.4 04-15-2023 21:22 Temp (C): 35.7 04-15-2023 21:22 Heart Rate (beats/min): 59 04-15-2023 21:22 Respirations (breaths/min): 20 04-15-2023 21:22 SpO2 (%): 98 04-15-2023 21:22 BP Systolic (mm Hg): 113 04-15-2023 21:22 BP Diastolic (mm Hg): 50 04-15-2023 21:22 PAST MEDICAL HISTORY ALLERGIES/INTOLERANCES: Intolerance Allergen: codeine Type: Drug Reaction: GI Upset Nausea/Vomiting HEALTH HISTORY: No documented data. OUTPATIENT MEDICATIONS: Home Medications Review Status for Reconciliation: N/A Med Status: Patient Currently Takes Medications Drug Name: atenolol 25 mg oral tablet Instructions: 1 tab(s) orally once a day Drug Name: triamterene-hydrochlorothiaz rebeca 75mg-50mg oral tablet Instructions: 1 tab(s) orally once a day Drug Name: levothyroxine 112 mcg (0.112 mg) oral tablet Instructions: 1 tab(s) orally once a day Drug Name: LORazepam 0.5 mg oral tablet Instructions: 1 tab(s) orally once a day (at bedtime) Drug Name: tiZANidine 2 mg oral tablet Instructions: 1 tab(s) orally every 8 hours, As Needed Drug Name: traMADol 50 mg oral tablet Instructions: 1 tab(s) orally 2 times a day, As Needed Drug Name: traZODone 50 mg oral tablet Instructions: 1 tab(s) orally once a day (at bedtime) Drug Name: Robbins 5 mg-325 mg oral tablet Instructions: 1 tab(s) orally every 6 hours, As Needed SIGNIFICANT EVENTS: Past Medical History Description:Hysterectomy Past Surgical History Description:Gallbladder Description:Appendectomy REVIEW OF SYSTEMS CONSTITUTIONAL: POSITIVE for: malaise and weakness MUSCULOSKELETAL: POSITIVE for: back pain All other systems reviewed and are negative PHYSICAL EXAM CONSTITUTIONAL: Well appearing, well nourished, awake, alert, oriented to person, place, time/situation and in no apparent distress. HENMT: Airway patent, ears with clear tympanic membranes bilaterally. Nasal mucosa clear. Mouth with normal mucosa. Throat has no vesicles, no oropharyngeal exudates and uvula is midline. Face with no lymph node enlargement. EYES: Clear bilaterally, pupils equal, round and reactive to light. CARDIOVASCULAR: Normal rate, regular rhythm. Heart sounds S1, S2. No murmurs, rubs or gallops. PMI non-displaced. RESPIRATORY: Breath sounds clear and equal bilaterally. GASTROINTESTINAL: Abdomen soft, non-distended, no rebound, no guarding. Bowel sounds normal in all 4 quadrants. GENITOURINARY: No discharge, no lesions. MUSCULOSKELETAL: Spine appears normal, range of motion is not limited, no muscle or joint tenderness. Most sacral pain with movement. NEUROLOGICAL: Alert and oriented, no focal deficits, no motor or sensory deficits. SKIN: Skin normal color for race, warm, dry and intact. No evidence of trauma. PSYCHIATRIC: Alert and oriented to person, place, time/situation. normal mood and affect. No apparent risk to self or others. HEME/LYMPH: No adenopathy or splenomegaly. No cervical, supraclavicular or inguinal lymphadenopathy. CRITICAL CARE RESULTS: Recent Lab Results: I have reviewed these laboratory results: Complete Blood Count + Differential 15-Apr-2023 21:47:00 ResultValue White Blood Cell Count 13.7 H Red Blood Cell Count 2.96 L HGB 9.8 L HCT 29.4 L MCV 99 MCHC 33.3 PLT 449 RDW-CV 12.5 Neutrophil % 60.5 Immature Granulocytes % 2.5 H Lymphocyte % 27.3 Monocyte % 8.0 Eosinophil % 1.3 Basophil % 0.4 Neutrophil Count 8.31 (more content not included)... Normal [facility] Risk Screen - Adult Emergenc yon 04-15-2023 Risk Screen - Adult Emergency Preferred Language: Preferred Language: Preferred Language for Discussing Health Care (patient/designee)Nepalese Patient Preferred Pharmacy: Patient Preferred Pharmacy Statement: I have reviewed and updated the patient's preferred pharmacy selection for today's visit. Advanced Directives: Advance Directive/DNRyes Advance Directive typeDNR- CCA Family Violence Adult: Abuse Screen: Are you or have you been threatened or abused physically, emotionally, or sexually by anyoneno Learning Assessment (Patient): Learning Assessment (Patient): Patient is Able to be Assessed for Learningyes Factors Influencing Readiness to Learnacuteness of illness Factors that Impact Ability to Learnnone Devices/Methods Used to Communicatenone Learning Preferencesaudio Cultural Considerationsnone Developmental Considerationsnone Roman Catholic Considerationsnone Learning Assessment (Other Learner): Learning Assessment (Other Learner): Other learner availableyes... Learnerspouse Factors Influencing Readiness to Learnacuteness of illness Factors that Impact Ability to Learnnone Devices/Methods Used to Communicatenone Learning Preferencesaudio Cultural Considerationsnone Developmental Considerationsnone Roman Catholic Considerationsnone Pressure Injury/TB/Substance: Pressure Injury: Pressure Injury Present on Admissionno Do you have a coughno Smoking Statusnever smoker Alcohol Usedenies Drug Usedenies Admission Risk Screen: Significant IndicatorsComplete CAGE: CAGE: Is this an injured patient at a Trauma Center ([facility]/[place]): no Electronic Signatures: Naresh Dye (WILLIE) (Signed 15-Apr-2023 21:27) Authored: Preferred Language, Patient Preferred Pharmacy, Advanced Directives, Family Violence Adult, Learning Assessment (Patient), Learning Assessment (Other Learner), Pressure Injury/TB/Substance, Pressure Injury, CAGE Last Updated: 15-Apr-2023 21:27 by Naresh Dye (WILLIE) [facility] Triage - EDon 04-15-2023 Triage - ED Quick Triage: The patient and/or guardian verbally acknowledges placement for services into the following (when Urgent Care Service hours are operating):emergency department Chart Review: ARRIVAL INFORMATION Mode of Arrival: ambulance Agency Name: [facility] CHIEF COMPLAINT CHRISTINE MAYS is a Female patient with a chief complaint of syncope (witnessed syncopal episode lasting approx 10-12 mins, BP for squad 72/30. recent back surgery). Triage Date/Time: 15-Apr-2023 21:22 MAISHA: 3 Pain Rating (0-10): 6 = Moderate Vital Signs: Temperature: 96.4F ( 35.7C) Blood Pressure: 113/50 Mean: Heart Rate: 59 Respiratory Rate: 20 Pulse Oximetry: 98% on supplemental O2. Mode Of Oxygen Delivery: nasal cannula at a rate of 2.000 liters/minute. Height: 5 feet 4.00 inches. 162.5 CM Weight: 140.8 pounds. Calculated 63.9 kg. (stated) Calculated BMI (kg/m2): 24.198 Calculated BSA (m2) 1.70 Pearson Coma Scale: Best Eye Response: (E4) spontaneous Best Motor Response: (M6) obeys commands Best Verbal Response: (V5) oriented Pearson Score: 15 Allergies: yes Patient has homicidal thoughts: no Risk Screens Suicide Risk Screen In the Past Month: Have you wished you were or wished you could go to sleep and not wake up no In the Past Month: Have you had any actual thoughts of killing yourself no In Your Lifetime: Have you ever done anything, started to do anything, or prepared to do anything to end your life no Merlos Fall Scale Screening Has the patient fallen before (or is the patient in the ED as a result of a fall) has not had a fall Does the patient have an impaired gait has impaired gait Is the patient cognitively impaired not cognitively impaired Merlos Fall Scale History of falling (immediate or previous) no (0) Secondary Diagnosis yes (15) Intravenous Therapy/ Heparin/Saline Lock yes (20) Gait/Transferring impaired (20) Ambulatory Aids none/bedrest/nurse assist (0) Mental Status oriented to own ability (0) Merlos Fall Risk Score: 55 Interventions: Merlos Fall Interventions: HIGH INTERVENTIONS *Low and Moderate Interventions Plus: * supervised toileting at all times TRAVEL HISTORY Travel History Coronavirus Screening: no exposure or symptoms Travel Exposure History: NO travel to International locations in the past 30 days PAIN Pain Scale Used: MARIFER Pain Rating (0-10): 6 = Moderate Past Medical History: Past Medical History Reviewedyes Electronic Signatures: Naresh Dye (WILLIE) (Signed 16-Apr-2023 00:45) Authored: Quick Triage, Risk Screens, Pain, Travel History, Chart Review, Past Medical History Last Updated: 16-Apr-2023 00:45 by Naresh Dye) [facility]15-2023 Troponin I 7 ng/L 0 - 13 ng/L [facility] Comment on above: . Less than 99th percentile of normal range cutoff- Female and children under 18 years old <14 ng/L; Male <21 ng/L: Negative Repeat testing should be performed if clinically indicated. . Female and children under 18 years old 14-50 ng/L; Male 21-50 ng/L: Consistent with possible cardiac damage and possible increased clinical risk. Serial measurements may help to assess extent of myocardial damage. . >50 ng/L: Consistent with cardiac damage, increased clinical risk and myocardial infarction. Serial measurements may help assess extent of myocardial damage. . NOTE: Children less than 1 year old may have higher baseline troponin levels and results should be interpreted in conjunction with the overall clinical context. . NOTE: Troponin I testing is performed using a different testing methodology at [facility] than at other [facility]. Direct result comparisons should only be made within the same method. [facility] XR Chest Single viewon 04-15 Enlarged cardiac paulie houette. No consolidation or edema. [facility] Interpreted By: WILFREDO TABARES MD Patient Name: CHRISTINE MAYS STUDY: CHEST 1 VIEW; 04/15/2023 10:14 pm INDICATION: syncope . COMPARISON: 10/18/2021 ACCESSION NUMBER(S): [id number] ORDERING CLINICIAN: ERWIN ARMAS FINDINGS: The cardiac silhouette is enlarged. There is no consolidation. There is no effusion. There is no edema. Low lung volumes noted. Vascular calcifications. [facility] Wilfredo Galloway MD - 04/15/2023 Interpreted By: WILFREDO GALLOWAY MD Patient Name: CHRISTINE MAYS STUDY: CHEST 1 VIEW; 04/15/2023 10:14 pm INDICATION: syncope . COMPARISON: 10/18/2021 ACCESSION NUMBER(S): [id number] ORDERING CLINICIAN: ERWIN ARMAS FINDINGS: The cardiac silhouette is enlarged. There is no consolidation. There is no effusion. There is no edema. Low lung volumes noted. Vascular calcifications. IMPRESSION: Enlarged cardiac silhouette. No consolidation or edema. [facility] Work Phone: Radiology Study observation (narrative) [facility] Work Phone: XR Chest Single viewOrdered By: Wilfrdeo Galloway on 04-15-2023 [facility] Work Phone: BASIC METABOLIC PANELon 03-21 Anion gap [Moles/Vol] 9 mmol/L Low 10 - 20 [facility] Comment on above: Order Comment: KAYTL YN UNGERER SKILLED Performed By: #### B MP #### [address] [address] Calcium [Mass/Vol] 8.8 mg/dL Normal 8.6 - 10.3 [facility] Comment on above: Order Comment: KAYTL YN UNGERER SKILLED Performed By: #### B MP #### [address] [address] Chloride [Moles/Vol] 94 mmol/L Low 98 - 107 [facility] Comment on above: Order Comment: KAYTL YN UNGERER SKILLED Performed By: #### B MP #### [address] [address] Creatinine [Mass/Vol] 0.43 mg/dL Low 0.50 - 1.05 [facility] Comment on above: Order Comment: KAYTL YN UNGERER SKILLED Performed By: #### B MP #### [address] [address] eGFR FEMALE >90 Normal >90 [facility] Comment on above: Order Comment: KAYTL YN UNGERER SKILLED Result Comment: CALC ULATIONS OF ESTIMATED GFR ARE PERFORMED USING THE 2020 CKD-EPI STUDY REFIT EQUATION WITHOUT THE RACE VARIABLE FOR THE IDMS-TRACEABLE CREATININE METHODS. https://jasn.asnjournals.org/content/early/ASN.72496379 88 Performed By: #### B MP #### [address] [address] Glucose [Mass/Vol] 89 mg/dL Normal 74 - 99 [facility] Comment on above: Order Comment: KAYTL YN UNGERER SKILLED Performed By: #### B MP #### [address] [address] HCO3 (Bld) [Moles/Vol] 32 mmol/L Normal 21 - 32 [facility] Comment on above: Order Comment: KAYTL YN UNGERER SKILLED Performed By: #### B MP #### [place] [id number] Potassium [Moles/Vol] 3.8 mmol/L Normal 3.5 - 5.3 [facility] Comment on above: Order Comment: KAYTL YN UNGERER SKILLED Performed By: #### B MP #### [place] [address] Sodium [Moles/Vol] 131 mmol/L Low 136 - 145 [facility] Comment on above: Order Comment: KAYTL YN UNGERER SKILLED Performed By: #### B MP #### [place] [address] Urea nitrogen [Mass/Vol] 8 mg/dL Normal 6 - 23 [facility] Comment on above: Order Comment: KAYTL YN UNGERER SKILLED Performed By: #### B MP #### [place] [id number] CBC AND DIFFERENTIALon 04-08 % AUTOMATED IMMATURE GRAN 1.0 % High 0.0 - 0.9 [facility] Comment on above: Order Comment: KAYTL YN UNGERERSKILLED Result Comment: Aurora ture Granulocyte Count (IG) includes promyelocytes, myelocytes and metamyelocytes but does not include bands. Percent differential counts (%) should be interpreted in the context of the absolute cell counts (cells/L). Performed By: #### A PTT #### [address] [address] Basophils (Bld) [#/Vol] 0.03 10*3/uL Normal 0.00 - 0.10 [facility] Comment on above: Order Comment: KAYTL YN UNGERERSKILLED Performed By: #### A PTT #### [address] [address] Basophils/100 WBC (Bld) 0.4 % Normal 0.0 - 2.0 [facility] Comment on above: Order Comment: KAYTL YN UNGERERSKILLED Performed By: #### A PTT #### [address] [address] Eosinophils (Bld) [#/Vol] 0.19 10*3/uL Normal 0.00 - 0.40 [facility] Comment on above: Order Comment: KAYTL YN UNGERERSKILLED Performed By: #### A PTT #### [address] [address] Eosinophils/100 WBC (Bld) 2.8 % Normal 0.0 - 6.0 [facility] Comment on above: Order Comment: KAYTL YN UNGERERSKILLED Performed By: #### A PTT #### [place] [id number] Erythrocyte distribution width (RBC) [Ratio] 12.4 % Normal 11.5 - 14.5 [facility] Comment on above: Order Comment: KAYTL YN UNGERERSKILLED Performed By: #### A PTT #### [address] [address] Hematocrit (Bld) [Volume fraction] 30.3 % Low 36.0 - 46.0 [facility] Comment on above: Order Comment: KAYTL YN UNGERERSKILLED Performed By: #### A PTT #### [address] [address] Hemoglobin (Bld) [Mass/Vol] 10.1 g/dL Low 12.0 - 16.0 [facility] Comment on above: Order Comment: KAYTL YN UNGERERSKILLED Performed By: #### A PTT #### [address] [address] Lymphocytes (Bld) [#/Vol] 1.71 10*3/uL Normal 0.80 - 3.00 [facility] Comment on above: Order Comment: KAYTL YN UNGERERSKILLED Performed By: #### A PTT #### [address] [address] Lymphocytes/100 WBC (Bld) 24.9 % Normal 13.0 - 44.0 [facility] Comment on above: Order Comment: KAYTL YN UNGERERSKILLED Performed By: #### A PTT #### [address] [address] MCHC (RBC) [Mass/Vol] 33.3 g/dL Normal 32.0 - 36.0 [facility] Comment on above: Order Comment: KAYTL YN UNGERERSKILLED Performed By: #### A PTT #### [place] [id number] MCV (RBC) [Entitic vol] 98 fL Normal 80 - 100 [facility] Comment on above: Order Comment: KAYTL YN UNGERERSKILLED Performed By: #### A PTT #### [address] [address] Monocytes (Bld) [#/Vol] 0.79 10*3/uL Normal 0.05 - 0.80 [facility] Comment on above: Order Comment: KAYTL YN UNGERERSKILLED Performed By: #### A PTT #### [address] [address] Monocytes/100 WBC (Bld) 11.5 % Normal 2.0 - 10.0 [facility] Comment on above: Order Comment: KAYTL YN UNGERERSKILLED Performed By: #### A PTT #### [address] [address] Neutrophils (Bld) [#/Vol] 4.07 10*3/uL Normal 1.60 - 5.50 [facility] Comment on above: Order Comment: KAYTL YN UNGERERSKILLED Result Comment: Perc ent differential counts (%) should be interpreted in the context of the absolute cell counts (cells/L). Performed By: #### A PTT #### [address] [address] Neutrophils/100 WBC (Bld) 59.4 % Normal 40.0 - 80.0 [facility] Comment on above: Order Comment: LORETOJATINDERL NancyJoe UNGERERSKILLED Performed By: #### A PTT #### [place] [id number] [place] [address] Platelets (Bld) [#/Vol] 308 10*3/uL Normal 150 - 450 [facility] Comment on above: Order Comment: KAYTL YJoe UNGERERSKILLED Performed By: #### A PTT #### [address] [address] RBC 3.09 x10E12/L Low 4.00 - 5.20 [facility] Comment on above: Order Comment: KAYTL FLORENCIA UNGERERSKILLED Performed By: #### A PTT #### [address] [address] WBC (Bld) [#/Vol] 6.9 10*3/uL Normal 4.4 - 11.3 [facility] Comment on above: Order Comment: KAJATINDERL NancyJoe UNGERERSKILLED Performed By: #### A PTT #### [address] [address] Basic metabolic 2000 panelon 04-05-2023 Anion gap [Moles/Vol] 6 mmol/L 6 - 18 [employer] Calcium [Mass/Vol] 8.6 mg/dL Low 8.9 - 10. 3 mg/dL [employer] Chloride [Moles/Vol] 102 mmol/L 98 - 107 mmol/L [employer] CO2 [Moles/Vol] 27 mmol/L 22 - 32 mmol/L [employer] Creatinine [Mass/Vol] 0.43 mg/dL Low 0.60 - 1.30 mg/dL [employer] GFR/1.73 sq M.predicted among non-blacks MDRD (S/P/Bld) [Vol rate/Area] 98 mL/min/{1.73_m2} - PINF [place] [employer] Comment on above: Effective April 28, 2022, calculation based on the Chronic Kidney Disease Epidemiology Collaboration (CKD-EPI) equation refit without adjustment for race. Glucose [Mass/Vol] 169 mg/dL High 70 - 99 mg/dL [facility] Interpretation and review of laboratory results Abnormal [facility] Potassium [Moles/Vol] 3.2 mmol/L Low 3.6 - 5.1 mmol/L [facility] Sodium [Moles/Vol] 135 mmol/L Low 136 - 145 mmol/L [facility] Urea nitrogen [Mass/Vol] 8 mg/dL 8 - 20 mg/dL [facility] Urea nitrogen/Creatinine [Mass ratio] 18.6 mg/mg 12.0 - 20.0 [facility] Anion gap [Moles/Vol] 6 mmol/L Normal 6-18 [facility] Comment on above: Order Comment: AM dr orellana Performed By: #### 2 4321-2 #### [facility] [address] [place] [address] Calcium [Mass/Vol] 8.6 mg/dL Low 8.9-10.3 [facility] Comment on above: Order Comment: AM dr orellana Performed By: #### 2 4321-2 #### [facility] [address] [place] [address] Chloride [Moles/Vol] 102 mmol/L Normal 98-107 [facility] Comment on above: Order Comment: BUD orellana Performed By: #### 2 4321-2 #### [facility] [address] [place] [address] CO2 [Moles/Vol] 27 mmol/L Normal 22-32 [facility] Comment on above: Order Comment: AM dr orellana Performed By: #### 2 4321-2 #### [facility] [address] [place] [address] Creatinine [Mass/Vol] 0.43 mg/dL Low 0.60-1.30 [facility] Comment on above: Order Comment: BUD orellana Performed By: #### 2 4321-2 #### [facility] [address] [place] [address] GFR/1.73 sq M.predicted among non-blacks MDRD (S/P/Bld) [Vol rate/Area] 98 mL/min/{1.73_m2} Normal >=60 [facility] Comment on above: Order Comment: BUD orellana Result Comment: Mimi ctive April 28, 2022, calculation based on the?Chronic Kidney Disease Epidemiology Collaboration (CKD-EPI) equation refit?without adjustment for race. Performed By: #### 2 4321-2 #### [facility] [address] [place] [address] Glucose [Mass/Vol] 169 mg/dL High 70-99 [facility] Comment on above: Order Comment: BUD orellana Performed By: #### 2 4321-2 #### [facility] [address] [place] [address] Potassium [Moles/Vol] 3.2 mmol/L Low 3.6-5.1 [facility] Comment on above: Order Comment: BUD orellana Performed By: #### 2 4321-2 #### [facility] [address] [place] [address] Sodium [Moles/Vol] 135 mmol/L Low 136-145 [facility] Comment on above: Order Comment: BUD orellana Performed By: #### 2 4321-2 #### [facility] [address] [place] [address] Urea nitrogen [Mass/Vol] 8 mg/dL Normal 8-20 [facility] Comment on above: Order Comment: BUD orellana Performed By: #### 2 4321-2 #### [facility] [address] [place] [address] Urea nitrogen/Creatinine [Mass ratio] 18.6 mg/mg Normal 12.0-20.0 [facility] Comment on above: Order Comment: BUD orellana Performed By: #### 2 4321-2 #### [facility] [address] [place] [address] Hemogram and platelets WO di fferential panel (Bld)on 04-05-2023 Basophils (Bld) [#/Vol] 0.02 10*3/uL Normal 0.00-0.20 [facility] Comment on above: Order Comment: BUD orellana Performed By: #### 2 4317-0 #### [facility] [address] [place] [address] Basophils/100 WBC (Bld) 0.2 % Normal 0.0-2.0 [facility] Comment on above: Order Comment: BUD orellana Performed By: #### 2 4317-0 #### [facility] [address] [place] [address] Eosinophils (Bld) [#/Vol] 0.03 10*3/uL Normal 0.00-0.70 [facility] Comment on above: Order Comment: BUD orellana Performed By: #### 2 4317-0 #### [facility] [address] [place] [address] Eosinophils/100 WBC (Bld) 0.3 % Normal 0.0-7.0 [facility] Comment on above: Order Comment: BUD orellana Performed By: #### 2 4317-0 #### [facility] [address] [place] [address] Erythrocyte distribution width (RBC) [Ratio] 12.6 % Normal 11.0-14.8 [facility] Comment on above: Order Comment: BUD orellana Performed By: #### 2 4317-0 #### [facility] [address] [place] [address] Hematocrit (Bld) [Volume fraction] 28.2 % Low 34.3-47.9 [facility] Comment on above: Order Comment: BUD orellana Performed By: #### 2 4317-0 #### [facility] [address] [place] [address] Hemoglobin (Bld) [Mass/Vol] 9.5 g/dL Low 12.0-16.0 [facility] Comment on above: Order Comment: AM dr orellana Performed By: #### 2 4317-0 #### [facility] [address] [place] [address] Immature granulocytes (Bld) [#/Vol] 0.04 10*3/uL Normal 0.00-0.10 [facility] Comment on above: Order Comment: AM dr orellana Performed By: #### 2 4317-0 #### [facility] [address] [place] [address] Immature granulocytes/100 WBC (Bld) 0.4 % Normal 0.0-1.2 [facility] Comment on above: Order Comment: AM dr orellana Performed By: #### 2 4317-0 #### [facility] [address] [place] [address] Lymphocytes (Bld) [#/Vol] 0.91 10*3/uL Low 1.00-4.80 [facility] Comment on above: Order Comment: BUD orellana Performed By: #### 2 4317-0 #### [facility] [address] [place] [address] Lymphocytes/100 WBC (Bld) 8.9 % Low 17.9-49.6 [facility] Comment on above: Order Comment: BUD orellana Performed By: #### 2 4317-0 #### [facility] [address] [place] [address] MCH 33.2 pcg Normal 27.0-34.0 [facility] Comment on above: Order Comment: BUD orellana Performed By: #### 2 4317-0 #### [facility] [address] [place] [address] MCHC (RBC) [Mass/Vol] 33.7 g/dL Normal 30.8-35.3 [facility] Comment on above: Order Comment: BUD orellana Performed By: #### 2 4317-0 #### [facility] [address] [place] [address] MCV (RBC) [Entitic vol] 98.6 fL High 80.0-97.0 [facility] Comment on above: Order Comment: BUD orellana Performed By: #### 2 4317-0 #### [facility] [address] [place] [address] Monocytes (Bld) [#/Vol] 0.71 10*3/uL Normal 0.00-0.90 [facility] Comment on above: Order Comment: BUD orellana Performed By: #### 2 4317-0 #### [facility] [address] [place] [place] [address] Monocytes/100 WBC (Bld) 6.9 % Normal 0.0-12.0 [facility] Comment on above: Order Comment: BUD orellana Performed By: #### 2 4317-0 #### [facility] [address] [place] [address] Neutrophils Absolute 8.56 K/mcL High 1.80-7.70 [facility] Comment on above: Order Comment: BUD orellana Performed By: #### 2 4317-0 #### [facility] [address] [place] [address] Neutrophils/100 WBC (Bld) 83.3 % High 38.1-75.5 [facility] Comment on above: Order Comment: BUD orellana Performed By: #### 2 4317-0 #### [facility] [address] [place] [address] Platelet mean volume (Bld) [Entitic vol] 8.7 fL Normal 6.2-12.1 [facility] Comment on above: Order Comment: BUD orellana Performed By: #### 2 4317-0 #### [facility] [address] [place] [address] Platelets (Bld) [#/Vol] 184 10*3/uL Normal 142-424 [facility] Comment on above: Order Comment: BUD orellana Performed By: #### 2 4317-0 #### [facility] [address] [place] [address] RBC (Bld) [#/Vol] 2.86 10*6/uL Low 3.74-5.34 [facility] Comment on above: Order Comment: BUD orellana Performed By: #### 2 4317-0 #### [facility] [address] [place] [address]83 WBC (Bld) [#/Vol] 10.3 10*3/uL High 4.6-10.2 [facility] Comment on above: Order Comment: BUD orellana Performed By: #### 2 4317-0 #### [facility] [address] [place] [address]608 Basophils (Bld) [#/Vol] 0.02 10*3/uL [facility] Basophils/100 WBC (Bld) 0.2 % 0.0 - 2.0 % [facility] Eosinophils (Bld) [#/Vol] 0.03 10*3/uL [facility] Eosinophils/100 WBC (Bld) 0.3 % 0.0 - 7.0 % [facility] Erythrocyte distribution width (RBC) [Ratio] 12.6 % 11.0 - 14.8 % [facility] Hematocrit (Bld) [Volume fraction] 28.2 % Low 34.3 - 47.9 % [facility] Hemoglobin (Bld) [Mass/Vol] 9.5 g/dL Low 12.0 - 16.0 g/dL [facility] Immature granulocytes (Bld) [#/Vol] 0.04 10*3/uL [facility] Immature granulocytes/100 WBC (Bld) 0.4 % 0.0 - 1.2 % [facility] Interpretation and review of laboratory results Abnormal [facility] Lymphocytes (Bld) [#/Vol] 0.91 10*3/uL Low [facility] Lymphocytes/100 WBC (Bld) 8.9 % Low 17.9 - 49.6 % [facility] MCH (RBC) [Entitic mass] 33.2 pg [facility] MCHC (RBC) [Mass/Vol] 33.7 g/dL 30.8 - 35.3 g/dL [facility] MCV (RBC) [Entitic vol] 98.6 fL High [facility] Monocytes (Bld) [#/Vol] 0.71 10*3/uL [facility] Monocytes/100 WBC (Bld) 6.9 % 0.0 - 12.0 % [facility] Neutrophils (Bld) [#/Vol] 8.56 10*3/uL High [facility] Neutrophils/100 WBC (Bld) 83.3 % High 38.1 - 75.5 % [facility] Platelet mean volume (Bld) [Entitic vol] 8.7 fL [facility] Platelets (Bld) [#/Vol] 184 10*3/uL [facility] RBC (Bld) [#/Vol] 2.86 10*6/uL Low [facility] WBC (Bld) [#/Vol] 10.3 10*3/uL High [facility] SARS-CoV-2 (COVID-19) RNA NA A+probe Ql (Resp)on 04-05-2023 Interpretation and review of laboratory results Normal [facility] SARS-CoV-2 (COVID-19) RdRp gene COBY+probe Ql (Resp) Not detected Not Detected [facility] SARS-CoV-2 RNA Resp Ql COBY+p cong 04-05-2023 SARS-CoV-2 (COVID-19) RNA COBY+probe Ql (Resp) Not detected Normal Not Detected [facility] Comment on above: Performed By: #### 3 4532-2 #### [facility] [address] [place] [address] Basic metabolic 2000 panelon 04-04-2023 Anion gap [Moles/Vol] 3 mmol/L Low 6-18 [facility] Comment on above: Performed By: #### 2 4321-2 #### [facility] [address] [place] [address] Calcium [Mass/Vol] 8.5 mg/dL Low 8.9-10.3 [facility] Comment on above: Performed By: #### 2 4321-2 #### [facility] [address] [place] [address] Chloride [Moles/Vol] 100 mmol/L Normal 98-107 [facility] Comment on above: Performed By: #### 2 4321-2 #### [facility] [address] [place] [address] CO2 [Moles/Vol] 30 mmol/L Normal 22-32 [facility] Comment on above: Performed By: #### 2 4321-2 #### [facility] [address] [place] [address] Creatinine [Mass/Vol] 0.44 mg/dL Low 0.60-1.30 [facility] Comment on above: Performed By: #### 2 4321-2 #### [facility] [address] [place] [address] GFR/1.73 sq M.predicted among non-blacks MDRD (S/P/Bld) [Vol rate/Area] 98 mL/min/{1.73_m2} Normal >=60 [facility] Comment on above: Result Comment: Effe ctive April 28, 2022, calculation based on the?Chronic Kidney Disease Epidemiology Collaboration (CKD-EPI) equation refit?without adjustment for race. Performed By: #### 2 4321-2 #### [facility] [address] [place] [address] Glucose [Mass/Vol] 103 mg/dL High 70-99 [facility] Comment on above: Performed By: #### 2 4321-2 #### [facility] [address] [place] [address] Potassium [Moles/Vol] 3.6 mmol/L Normal 3.6-5.1 [facility] Comment on above: Performed By: #### 2 4321-2 #### [facility] [address] [place] [address] Sodium [Moles/Vol] 133 mmol/L Low 136-145 [facility] Comment on above: Performed By: #### 2 4321-2 #### [facility] [address] [place] [address] Urea nitrogen [Mass/Vol] 11 mg/dL Normal 8-20 [facility] Comment on above: Performed By: #### 2 4321-2 #### [facility] [address] [place] [address] Urea nitrogen/Creatinine [Mass ratio] 25.0 mg/mg High 12.0-20.0 [facility] Comment on above: Performed By: #### 2 4321-2 #### [facility] [address] [place] [address] Anion gap [Moles/Vol] 3 mmol/L Low 6 - 18 [facility] Calcium [Mass/Vol] 8.5 mg/dL Low 8.9 - 10. 3 mg/dL [facility] Chloride [Moles/Vol] 100 mmol/L 98 - 107 mmol/L [facility] CO2 [Moles/Vol] 30 mmol/L 22 - 32 mmol/L [facility] Creatinine [Mass/Vol] 0.44 mg/dL Low 0.60 - 1.30 mg/dL [facility] GFR/1.73 sq M.predicted among non-blacks MDRD (S/P/Bld) [Vol rate/Area] 98 mL/min/{1.73_m2} - PINF [facility] Comment on above: Effective April 28, 2022, calculation based on the Chronic Kidney Disease Epidemiology Collaboration (CKD-EPI) equation refit without adjustment for race. Glucose [Mass/Vol] 103 mg/dL High 70 - 99 mg/dL [facility] Interpretation and review of laboratory results Abnormal [facility] Potassium [Moles/Vol] 3.6 mmol/L 3.6 - 5.1 mmol/L [facility] Sodium [Moles/Vol] 133 mmol/L Low 136 - 145 mmol/L [facility] Urea nitrogen [Mass/Vol] 11 mg/dL 8 - 20 mg/dL [facility] Urea nitrogen/Creatinine [Mass ratio] 25.0 mg/mg High 12.0 - 20.0 [facility] Hemogram and platelets WO di fferential panel (Bld)on 04-04-2023 Basophils (Bld) [#/Vol] 0.01 10*3/uL Normal 0.00-0.20 [facility] Comment on above: Performed By: #### 2 4317-0 #### [facility] [address] [place] [address] 26341 Basophils/100 WBC (Bld) 0.1 % Normal 0.0-2.0 [facility] Comment on above: Performed By: #### 2 4317-0 #### [facility] [address] [place] [address] 42290 Eosinophils (Bld) [#/Vol] 0.00 10*3/uL Normal 0.00-0.70 [facility] Comment on above: Performed By: #### 2 4317-0 #### [facility] [address] [place] [address] Eosinophils/100 WBC (Bld) 0.0 % Normal 0.0-7.0 [facility] Comment on above: Performed By: #### 2 4317-0 #### [facility] [address] [place] [address] Erythrocyte distribution width (RBC) [Ratio] 12.8 % Normal 11.0-14.8 [facility] Comment on above: Performed By: #### 2 4317-0 #### [facility] [address] [place] [address]06 Hematocrit (Bld) [Volume fraction] 30.9 % Low 34.3-47.9 [facility] Comment on above: Performed By: #### 2 4317-0 #### [facility] [address] [place] [address]49 Hemoglobin (Bld) [Mass/Vol] 10.3 g/dL Low 12.0-16.0 [facility] Comment on above: Performed By: #### 2 4317-0 #### [facility] [address] [place] [address] 14383 Immature granulocytes (Bld) [#/Vol] 0.06 10*3/uL Normal 0.00-0.10 [facility] Comment on above: Performed By: #### 2 4317-0 #### [facility] [address] [place] [address] 64092 Immature granulocytes/100 WBC (Bld) 0.5 % Normal 0.0-1.2 [facility] Comment on above: Performed By: #### 2 4317-0 #### [facility] [address] [place] [address] 65050 Lymphocytes (Bld) [#/Vol] 1.22 10*3/uL Normal 1.00-4.80 [facility] Comment on above: Performed By: #### 2 4317-0 #### [facility] [address] [place] [address] 12133 Lymphocytes/100 WBC (Bld) 11.0 % Low 17.9-49.6 [facility] Comment on above: Performed By: #### 2 4317-0 #### [facility] [address] [place] [address] MCH 33.1 pcg Normal 27.0-34.0 [facility] Comment on above: Performed By: #### 2 4317-0 #### [facility] [address] [place] [address] MCHC (RBC) [Mass/Vol] 33.3 g/dL Normal 30.8-35.3 [facility] Comment on above: Performed By: #### 2 4317-0 #### [facility] [address] [place] [address] 25481 MCV (RBC) [Entitic vol] 99.4 fL High 80.0-97.0 [facility] Comment on above: Performed By: #### 2 4317-0 #### [facility] [address] [place] [address] 01566 Monocytes (Bld) [#/Vol] 1.05 10*3/uL High 0.00-0.90 [facility] Comment on above: Performed By: #### 2 4317-0 #### [facility] [address] [place] [address] 56816 Monocytes/100 WBC (Bld) 9.5 % Normal 0.0-12.0 [facility] Comment on above: Performed By: #### 2 4317-0 #### [facility] [address] [place] [address] 45410 Neutrophils Absolute 8.76 K/mcL High 1.80-7.70 [facility] Comment on above: Performed By: #### 2 4317-0 #### [facility] [address] [place] [address] 22517 Neutrophils/100 WBC (Bld) 78.9 % High 38.1-75.5 [facility] Comment on above: Performed By: #### 2 4317-0 #### [facility] [address] [place] [address] 65927 Platelet mean volume (Bld) [Entitic vol] 8.9 fL Normal 6.2-12.1 [facility] Comment on above: Performed By: #### 2 4317-0 #### [facility] [address] [place] [address] 84872 Platelets (Bld) [#/Vol] 207 10*3/uL Normal 142-424 [facility] Comment on above: Performed By: #### 2 4317-0 #### [facility] [address] [place] [address] 03880 RBC (Bld) [#/Vol] 3.11 10*6/uL Low 3.74-5.34 [facility] Comment on above: Performed By: #### 2 4317-0 #### [facility] [address] [place] [address] 97648 WBC (Bld) [#/Vol] 11.1 10*3/uL High 4.6-10.2 [facility] Comment on above: Performed By: #### 2 4317-0 #### [facility] [address] [place] [address] 18640 Basophils (Bld) [#/Vol] 0.01 10*3/uL [facility] Basophils/100 WBC (Bld) 0.1 % 0.0 - 2.0 % [facility] Eosinophils (Bld) [#/Vol] 0.00 10*3/uL [facility] Eosinophils/100 WBC (Bld) 0.0 % 0.0 - 7.0 % [facility] Erythrocyte distribution width (RBC) [Ratio] 12.8 % 11.0 - 14.8 % [facility] Hematocrit (Bld) [Volume fraction] 30.9 % Low 34.3 - 47.9 % [facility] Hemoglobin (Bld) [Mass/Vol] 10.3 g/dL Low 12.0 - 16.0 g/dL [facility] Immature granulocytes (Bld) [#/Vol] 0.06 10*3/uL [facility] Immature granulocytes/100 WBC (Bld) 0.5 % 0.0 - 1.2 % [facility] Interpretation and review of laboratory results Abnormal [facility] Lymphocytes (Bld) [#/Vol] 1.22 10*3/uL [facility] Lymphocytes/100 WBC (Bld) 11.0 % Low 17.9 - 49.6 % [facility] MCH (RBC) [Entitic mass] 33.1 pg [facility] MCHC (RBC) [Mass/Vol] 33.3 g/dL 30.8 - 35.3 g/dL [facility] MCV (RBC) [Entitic vol] 99.4 fL High [facility] Monocytes (Bld) [#/Vol] 1.05 10*3/uL High [facility] Monocytes/100 WBC (Bld) 9.5 % 0.0 - 12.0 % [facility] Neutrophils (Bld) [#/Vol] 8.76 10*3/uL High [facility] Neutrophils/100 WBC (Bld) 78.9 % High 38.1 - 75.5 % [facility] Platelet mean volume (Bld) [Entitic vol] 8.9 fL [facility] Platelets (Bld) [#/Vol] 207 10*3/uL [facility] RBC (Bld) [#/Vol] 3.11 10*6/uL Low [facility] WBC (Bld) [#/Vol] 11.1 10*3/uL High [facility] Blood type and Indirect anti body screen panel (Bld)on 04-03-2023 ABO group Nom (Bld) O Normal [facility] Comment on above: Performed By: #### 3 4532-2 #### [facility] [address] [place] [address] Rh Type Positive Normal [facility] Comment on above: Performed By: #### 3 4532-2 #### [facility] [address] [place] [address] ABO group Nom (Bld) O [facility] Blood group antibody screen Ql Negative [employer] [place] Rh Nom (Bld) Positive [facility] Glucose Auto test strip (Bld ) [Mass/Vol]on 04-03-2023 Glucose [Mass/Vol] 105 mg/dL High 70-99 [facility] Comment on above: Performed By: #### 2 340-8 #### [facility] [address] [place] [address] Glucose [Mass/Vol] 105 mg/dL High 70 - 99 mg/dL [facility] [place] Interpretation and review of laboratory results Abnormal [facility]! XR FLUORO UP TO 1 HOUR (STAT ISTICS)(NO REPORT)on 04-03-2023 XR FLUORO UP TO 1 HOUR (STATISTICS)(NO REPORT) This order has been auto-finalized and does not contain a result. Normal [facility] BASIC METABOLIC PANELon 03-21 Anion gap [Moles/Vol] 9 mmol/L Low 10 - 20 [facility] Comment on above: Performed By: #### B MP #### [address] [address] Calcium [Mass/Vol] 9.3 mg/dL Normal 8.6 - 10.3 [facility] Comment on above: Performed By: #### B MP #### [address] [address] Chloride [Moles/Vol] 100 mmol/L Normal 98 - 107 [facility] Comment on above: Performed By: #### B MP #### [address] [address] Creatinine [Mass/Vol] 0.54 mg/dL Normal 0.50 - 1.05 [facility] Comment on above: Performed By: #### B MP #### [address] [address] eGFR FEMALE >90 Normal >90 [facility] Comment on above: Result Comment: CALC ULATIONS OF ESTIMATED GFR ARE PERFORMED USING THE 2020 CKD-EPI STUDY REFIT EQUATION WITHOUT THE RACE VARIABLE FOR THE IDMS-TRACEABLE CREATININE METHODS. https://jasn.asnjournals.org/content//ASN.24439571 88 Performed By: #### B MP #### [address] [address] Glucose [Mass/Vol] 114 mg/dL High 74 - 99 [facility] Comment on above: Performed By: #### B MP #### [address] [address] HCO3 (Bld) [Moles/Vol] 30 mmol/L Normal 21 - 32 [facility] Comment on above: Performed By: #### B MP #### [address] [address] Potassium [Moles/Vol] 4.3 mmol/L Normal 3.5 - 5.3 [facility] Comment on above: Performed By: #### B MP #### [address] [address] Sodium [Moles/Vol] 135 mmol/L Low 136 - 145 [facility] Comment on above: Performed By: #### B MP #### [address] [address] Urea nitrogen [Mass/Vol] 14 mg/dL Normal 6 - 23 [facility] Comment on above: Performed By: #### B MP #### [address] [address] Basic metabolic 2000 panelon 03-18-2023 Anion gap [Moles/Vol] 7 mmol/L Normal 6-18 [facility] Comment on above: Performed By: #### 2 4321-2 #### [facility] [address] [place] [address] Calcium [Mass/Vol] 10.1 mg/dL Normal 8.9-10.3 [facility] Comment on above: Performed By: #### 2 4321-2 #### [facility] [address] [place] [address] Chloride [Moles/Vol] 91 mmol/L Low 98-107 [facility] Comment on above: Performed By: #### 2 4321-2 #### [facility] [address] [place] [address] CO2 [Moles/Vol] 30 mmol/L Normal 22-32 [facility] Comment on above: Performed By: #### 2 4321-2 #### [facility] [address] [place] [address] Creatinine [Mass/Vol] 0.56 mg/dL Low 0.60-1.30 [facility] Comment on above: Performed By: #### 2 4321-2 #### [facility] [address] [place] [address] GFR/1.73 sq M.predicted among non-blacks MDRD (S/P/Bld) [Vol rate/Area] 92 mL/min/{1.73_m2} Normal >=60 [facility] Comment on above: Result Comment: Effe ctive April 28, 2022, calculation based on the?Chronic Kidney Disease Epidemiology Collaboration (CKD-EPI) equation refit?without adjustment for race. Performed By: #### 2 4321-2 #### [facility] [address] [place] [address] Glucose [Mass/Vol] 87 mg/dL Normal 70-99 [facility] Comment on above: Performed By: #### 2 4321-2 #### [facility] [address] [place] [address] Potassium [Moles/Vol] 5.2 mmol/L High 3.6-5.1 [facility] Comment on above: Performed By: #### 2 4321-2 #### [facility] [address] [place] [address] Sodium [Moles/Vol] 128 mmol/L Low 136-145 [facility] Comment on above: Performed By: #### 2 4321-2 #### [facility] [address] [place] [address] Urea nitrogen [Mass/Vol] 18 mg/dL Normal 8-20 [facility] Comment on above: Performed By: #### 2 4321-2 #### [facility] [address] [place] [address] Urea nitrogen/Creatinine [Mass ratio] 32.1 mg/mg High 12.0-20.0 [facility] Comment on above: Performed By: #### 2 4321-2 #### [facility] [address] [place] [address] Blood type and Indirect anti body screen panel (Bld)on 03-18-2023 ABO group Nom (Bld) O Normal [facility] Comment on above: Performed By: #### 3 4532-2 #### [facility] [address] [place] [address] Rh Type Positive Normal [facility] Comment on above: Performed By: #### 3 4532-2 #### [facility] [address] [place] [address] Hemogram and platelets WO di fferential panel (Bld)on 03-18-2023 Basophils (Bld) [#/Vol] 0.03 10*3/uL Normal 0.00-0.20 [facility] Comment on above: Performed By: #### 2 4317-0 #### [facility] [address] [place] [address]4501 Basophils/100 WBC (Bld) 0.4 % Normal 0.0-2.0 [facility] Comment on above: Performed By: #### 2 4317-0 #### [facility] [address] [place] [address] 15118 Eosinophils (Bld) [#/Vol] 0.07 10*3/uL Normal 0.00-0.70 [facility] Comment on above: Performed By: #### 2 4317-0 #### [facility] [address] [place] [address]33 Eosinophils/100 WBC (Bld) 0.9 % Normal 0.0-7.0 [facility] Comment on above: Performed By: #### 2 4317-0 #### [facility] [address] [place] [address] Erythrocyte distribution width (RBC) [Ratio] 12.9 % Normal 11.0-14.8 [facility] Comment on above: Performed By: #### 2 4317-0 #### [facility] [address] [place] [address]37 Hematocrit (Bld) [Volume fraction] 37.5 % Normal 34.3-47.9 [facility] Comment on above: Performed By: #### 2 4317-0 #### [facility] [address] [place] [address] Hemoglobin (Bld) [Mass/Vol] 12.7 g/dL Normal 12.0-16.0 [facility] Comment on above: Performed By: #### 2 4317-0 #### [facility] [address] [place] [address] 22353 Immature granulocytes (Bld) [#/Vol] 0.03 10*3/uL Normal 0.00-0.10 [facility] Comment on above: Performed By: #### 2 4317-0 #### [facility] [address] [place] [address] Immature granulocytes/100 WBC (Bld) 0.4 % Normal 0.0-1.2 [facility] Comment on above: Performed By: #### 2 4317-0 #### [facility] [address] [place] [address] Lymphocytes (Bld) [#/Vol] 1.86 10*3/uL Normal 1.00-4.80 [facility] Comment on above: Performed By: #### 2 4317-0 #### [facility] [address] [place] [address] Lymphocytes/100 WBC (Bld) 23.6 % Normal 17.9-49.6 [facility] Comment on above: Performed By: #### 2 4317-0 #### [facility] [address] [place] [address] MCH 32.5 pcg Normal 27.0-34.0 [facility] Comment on above: Performed By: #### 2 4317-0 #### [facility] [address] [place] [address] MCHC (RBC) [Mass/Vol] 33.9 g/dL Normal 30.8-35.3 [facility] Comment on above: Performed By: #### 2 4317-0 #### [facility] [address] [place] [address] MCV (RBC) [Entitic vol] 95.9 fL Normal 80.0-97.0 [facility] Comment on above: Performed By: #### 2 4317-0 #### [facility] [address] [place] [address] Monocytes (Bld) [#/Vol] 0.74 10*3/uL Normal 0.00-0.90 [facility] Comment on above: Performed By: #### 2 4317-0 #### [facility] [address] [place] [address] Monocytes/100 WBC (Bld) 9.4 % Normal 0.0-12.0 [facility] Comment on above: Performed By: #### 2 4317-0 #### [facility] [address] [place] [address]16[address] Neutrophils Absolute 5.15 K/mcL Normal 1.80-7.70 [facility] Comment on above: Performed By: #### 2 4317-0 #### [facility] [address] [place] [address]46 Neutrophils/100 WBC (Bld) 65.3 % Normal 38.1-75.5 [facility] Comment on above: Performed By: #### 2 4317-0 #### [facility] [address] [place] [address]27 Platelet mean volume (Bld) [Entitic vol] 9.5 fL Normal 6.2-12.1 [facility] Comment on above: Performed By: #### 2 4317-0 #### [facility] [address] [place] [address] Platelets (Bld) [#/Vol] 321 10*3/uL Normal 142-424 [facility] Comment on above: Performed By: #### 2 4317-0 #### [facility] [address] [place] [address] RBC (Bld) [#/Vol] 3.91 10*6/uL Normal 3.74-5.34 [facility] Comment on above: Performed By: #### 2 4317-0 #### [facility] [address] [place] [address]67 WBC (Bld) [#/Vol] 7.9 10*3/uL Normal 4.6-10.2 [facility] Comment on above: Performed By: #### 2 4317-0 #### [facility] [address] [place] [address]975 BONE DENSITY, DEXA 1 OR MORE SITES: AXIAL SKELETONon 12-06-2022 BONE DENSITY, DEXA 1 OR MORE SITES: AXIAL SKELETON Patient Name: CHRISTINE MAYS STUDY: BONE DENSITY, DEXA 1 OR MORE SITES: AXIAL SKELET12/06/2022 10:59 am INDICATION: osteoporosis Z78.0: Postmenopausal M81.0: Age related osteoporosisThe patient is a 77 year old female for a screening bone Densitometry (DEXA). COMPARISON: 12/05/2020. ACCESSION NUMBER(S): [id number] ORDERING CLINICIAN: JAMIN RICKETTS TECHNIQUE: Bone Densitometry (DEXA) of the lumbar spine and left hip performed. FINDINGS: Name: CHRISTINE MAYS Date:1945 Height:0 Gender:F Exam Date:12/06/2022 Weight:68 Indications:osteoporosis Z78.0: Postmenopausal M81.0: Age related osteoporosis Fractures:None Treatments:None LEFT FEMUR -TOTAL Bone Mineral Density: 0.746 g/cm2 T-Score -1.6 Z-Score 0.4 LEFT FEMUR -NECK Bone Mineral Density: 0.693 g/cm2 T-Score -1.4 Z-Score 0.9 SPINE L1-L4 Bone Mineral Density: 1.089 g/cm2 T-Score 0.4 Z-Score 3.0 World Health Organization (WHO) criteria for post-menopausal, Women: Normal: T-score at or above -1 SD Osteopenia: T-score between -1 and -2.5 SD Osteoporosis: T-score at or below -2.5 SD 10-Year Fracture Risk: FRAX 10-year Fracture Risk(1): Major Osteoporotic Fracture 19% Hip Fracture 3.8% IMPRESSION: According to World Health Organization criteria, classification is low bone mass (osteopenia) Followup recommended in two years or sooner as clinically warranted. Electronically signed by: ONI SAAVEDRA MD Normal [facility] LIPID PANEL (CORONARY RISK 2 )on 11-20-2022 Cholesterol [Mass/Vol] 189 mg/dL Normal 0 - 199 [facility] Comment on above: Result Comment: . AGE DESIRABLE BORDERLINE HIGH HIGH 0-19 Y 0 - 169 170 - 199 >/= 200 20-24 Y 0 - 189 190 - 224 >/= 225 >24 Y 0 - 199 200 - 239 >/= 240 All ranges are based on fasting samples. Specific therapeutic targets will vary based on patient-specific cardiac risk. . Pediatric guidelines reference:Pediatrics 2011, 128(S5). Adult guidelines reference: NCEP ATPIII Guidelines, JERICHO 2001, 258:2486-97 . Venipuncture immediately after or during the administration of Metamizole may lead to falsely low results. Testing should be performed immediately prior to Metamizole dosing. Performed By: #### L IPID #### [address] [id number] Cholesterol in HDL [Mass/Vol] 58.0 mg/dL Normal [facility] Comment on above: Result Comment: . AGE VERY LOW LOW NORMAL HIGH 0-19 Y < 35 < 40 40-45 ---- 20-24 Y ---- < 40 >45 ---- >24 Y ---- < 40 40-60 >60 . Performed By: #### L IPID #### [address] [id number] Cholesterol in LDL [Mass/Vol] 105 mg/dL High 0 - 99 [facility] Comment on above: Result Comment: . NEAR BORD AGE DESIRABLE OPTIMAL HIGH HIGH VERY HIGH 0-19 Y 0 - 109 --- 110-129 >/= 130 ---- 20-24 Y 0 - 119 --- 120-159 >/= 160 ---- >24 Y 0 - 99 100-129 130-159 160-189 >/=190 . Performed By: #### L IPID #### [address] [address] Cholesterol in VLDL [Mass/Vol] 26 mg/dL Normal 0 - 40 [facility] Comment on above: Performed By: #### L IPID #### [address] [address] Cholesterol.total/C holesterol in HDL [Mass ratio] 3.3 {ratio} Normal [facility] Comment on above: Result Comment: REF VALUES DESIRABLE < 3.4 HIGH RISK > 5.0 Performed By: #### L IPID #### [address] [address] Triglyceride [Mass/Vol] 128 mg/dL Normal 0 - 149 [facility] Comment on above: Result Comment: . AGE DESIRABLE BORDERLINE HIGH HIGH VERY HIGH 0 D-90 D 19 - 174 ---- ---- ---- 91 D- 9 Y 0 - 74 75 - 99 >/= 100 ---- 10-19 Y 0 - 89 90 - 129 >/= 130 ---- 20-24 Y 0 - 114 115 - 149 >/= 150 ---- >24 Y 0 - 149 150 - 199 200- 499 >/= 500 . Venipuncture immediately after or during the administration of Metamizole may lead to falsely low results. Testing should be performed immediately prior to Metamizole dosing. Performed By: #### L IPID #### [place] [address] Lab Specimen Source Normal [facility] Comment on above: Performed By: #### L IPID #### [place] [address] Performed By: #### T HYDS #### [place] [address] OPIATE/OPIOID/BENZO EXTENDED PRESCRIPTION COMPLIANCEon 11-20-2022 6-ACETYLMORPHINE <25 Normal Cutoff <25 [facility] Comment on above: Performed By: #### A PTT #### [place] [address] 7-AMINOCLONAZEPAM <25 Normal Cutoff <25 [facility] Comment on above: Performed By: #### A PTT #### [place] [address] ALPHA-HYDROXYALPRAZ OLAM <25 Normal Cutoff <25 [facility] Comment on above: Performed By: #### A PTT #### [place] [address] ALPHA-HYDROXYMIDAZO HERNANDEZ <25 Normal Cutoff <25 [facility] Comment on above: Performed By: #### A PTT #### [place] [address] ALPRAZOLAM <25 Normal Cutoff <25 [facility] Comment on above: Performed By: #### A PTT #### [place] [address] CHLORDIAZEPOXIDE <25 Normal Cutoff <25 [facility] Comment on above: Performed By: #### A PTT #### [place] [address] CLONAZEPAM <25 Normal Cutoff <25 [facility] Comment on above: Performed By: #### A PTT #### [place] [address] CODEINE <50 Normal Cutoff <50 [facility] Comment on above: Performed By: #### A PTT #### [place] [address] DIAZEPAM <25 Normal Cutoff <25 [facility] Comment on above: Performed By: #### A PTT #### [place] [address] EDDP,U <25 Normal Cutoff <25 [facility] Comment on above: Result Comment: The performance characteristics of the Methadone Confirmation, Urine has been validated by the individual laboratory site where testing is performed. It has not been cleared or approved by the FDA. However the FDA has determined that such clearance or approval is not necessary. Our Laboratory is certified under the Clinical Laboratory Improvement Amendments of 1988 (CLIA) as qualified to perform high complexity clinical laboratory testing. Performed By: #### A PTT #### [place] [address] FENTANYL CONFIRM,U <2.5 Normal Cutoff<2.5 [facility] Comment on above: Performed By: #### A PTT #### [place] [address] HYDROCODONE <25 Normal Cutoff <25 [facility] Comment on above: Performed By: #### A PTT #### [place] [address] HYDROMORPHONE <25 Normal Cutoff <25 [facility] Comment on above: Performed By: #### A PTT #### [place] [address] LORAZEPAM <25 Normal Cutoff <25 [facility] Comment on above: Performed By: #### A PTT #### [place] [address] METHADONE,U <25 Normal Cutoff <25 [facility] Comment on above: Performed By: #### A PTT #### [place] [address] MIDAZOLAM <25 Normal Cutoff <25 [facility] Comment on above: Performed By: #### A PTT #### [place] [address] MORPHINE <50 Normal Cutoff <50 [facility] Comment on above: Performed By: #### A PTT #### [place] [address] NORDIAZEPAM <25 Normal Cutoff <25 [facility] Comment on above: Performed By: #### A PTT #### [place] [address] NORFENTANYL CONFIRM,U <2.5 Normal Cutoff<2.5 [facility] Comment on above: Result Comment: The performance characteristics of the Fentanyl Confirmation, Urine has been validated by the individual laboratory site where testing is performed. It has not been cleared or approved by the FDA. However the FDA has determined that such clearance or approval is not necessary. Our Laboratory is certified under the Clinical Laboratory Improvement Amendments of 1988 (CLIA) as qualified to perform high complexity clinical laboratory testing. Performed By: #### A PTT #### [place] [address] NORHYDROCODONE <25 Normal Cutoff <25 [facility] Comment on above: Performed By: #### A PTT #### [place] [address] NOROXYCODONE <25 Normal Cutoff <25 [facility] Comment on above: Performed By: #### A PTT #### [place] [id number] O-DESMETHYLTRAMADOL ,U >1000 Abnormal Cutoff <50 [facility] Comment on above: Result Comment: Tram adol metabolite; consistent with use of a drug containing tramadol, such as Ultram. The performance characteristics of the Tramadol Confirmation, Urine has been validated by the individual laboratory site where testing is performed. It has not been cleared or approved by the FDA. However the FDA has determined that such clearance or approval is not necessary. Our Laboratory is certified under the Clinical Laboratory Improvement Amendments of 1988 (CLIA) as qualified to perform high complexity clinical laboratory testing. Performed By: #### A PTT #### [place] [address] OXAZEPAM <25 Normal Cutoff <25 [facility] Comment on above: Performed By: #### A PTT #### [place] [address] OXYCODONE <25 Normal Cutoff <25 [facility] Comment on above: Performed By: #### A PTT #### [place] [address] OXYMORPHONE <25 Normal Cutoff <25 [facility] Comment on above: Result Comment: The performance characteristics of the Opiate Confirmation, Urine has been validated by the individual laboratory site where testing is performed. It has not been cleared or approved by the FDA. However the FDA has determined that such clearance or approval is not necessary. Our Laboratory is certified under the Clinical Laboratory Improvement Amendments of 1988 (CLIA) as qualified to perform high complexity clinical laboratory testing. Performed By: #### A PTT #### [place] [address] TEMAZEPAM <25 Normal Cutoff <25 [facility] Comment on above: Result Comment: The performance characteristics of the Benzodiazepine Confirmation, Urine has been validated by the individual laboratory site where testing is performed. It has not been cleared or approved by the FDA. However the FDA has determined that such clearance or approval is not necessary. Our Laboratory is certified under the Clinical Laboratory Improvement Amendments of 1988 (CLIA) as qualified to perform high complexity clinical laboratory testing. Performed By: #### A PTT #### [place] [address] TRAMADOL CONFIRM,U 852 ng/mL Abnormal Cutoff <50 [facility] Comment on above: Result Comment: Cons istent with use of a drug containing tramadol, such as Ultram. Performed By: #### A PTT #### [address] [address] ZOLPIDEM METABOLITE[ZCA] ,U <25 Normal Cutoff <25 [facility] Comment on above: Result Comment: The performance characteristics of the Zolpidem Confirmation, Urine has been validated by the individual laboratory site where testing is performed. It has not been cleared or approved by the FDA. However the FDA has determined that such clearance or approval is not necessary. Our Laboratory is certified under the Clinical Laboratory Improvement Amendments of 1988 (CLIA) as qualified to perform high complexity clinical laboratory testing. Performed By: #### A PTT #### [place] [id number] ZOLPIDEM,URINE <25 Normal Cutoff <25 [facility] Comment on above: Performed By: #### A PTT #### [place] [id number] TSH WITH REFLEX TO FREE T4 I F ABNORMALon 11-20-2022 TSH Qn 1.12 m[IU]/L Normal 0.44 - 3.98 [facility] Comment on above: Result Comment: TSH testing is performed using different testing methodology at [facility] than at other [facility]. Direct result comparisons should only be made within the same method. Performed By: #### T HYDS #### [place] [id number] OPIATE/OPIOID/BENZO EXTENDED PRESCRIPTION COMPLIANCEon 11-16-2022 AMPHETAMINE SCREEN,U Negative Normal NEGATIVE [facility] Comment on above: Result Comment: CUTO FF LEVEL: 500 NG/ML Cross-reactivity has been reported with high concentrations of the following drugs: buproprion, chloroquine, chlorpromazine, ephedrine, mephentermine, fenfluramine, phentermine, phenylpropanolamine, pseudoephedrine, and propranolol. Performed By: #### A PTT #### [place] [id number] BARBITURATES SCREEN,U Negative Normal NEGATIVE [facility] Comment on above: Result Comment: CUTO FF LEVEL: 200 NG/ML Performed By: #### A PTT #### [place] [address] CANNABINOIDS SCREEN,U Negative Normal NEGATIVE [facility] Comment on above: Result Comment: CUTO FF LEVEL: 50 NG/ML Performed By: #### A PTT #### [place] [address] COCAINE METABOLITE SCREEN,U Negative Normal NEGATIVE [facility] Comment on above: Result Comment: CUTO FF LEVEL: 150 NG/ML Performed By: #### A PTT #### [place] [address] Creatinine [Mass/Vol] 38.3 mg/dL Normal [facility] Comment on above: Result Comment: A ur ine creatinine result >= 20 mg/dL is considered valid without suspicion of dilution. Samples with results below this range will automatically reflex to specific gravity testing to verify specimen integrity. Performed By: #### A PTT #### [place] [address] DRUG SCREEN COMMENT. SEE BELOW Normal [facility] Comment on above: Result Comment: Drug screen results are presumptive and should not be used to assess compliance with prescribed medication. Definitive confirmatory drug testing has been added to this sample for any positive screen result and will be reported separately. . Toxicology screening results are reported qualitatively. The concentration must be greater than or equal to the cutoff to be reported as positive. The concentration at which the screening test can detect an individual drug or metabolite varies. The absence of expected drug(s) and/or drug metabolite(s) may indicate non-compliance, inappropriate timing of specimen collection relative to drug administration, poor drug absorption, diluted/adulterated urine, or limitations of testing. For medical purposes only; not valid for forensic use. . Interpretive questions should be directed to the laboratory medical directors. Performed By: #### A PTT #### [place] [address] PCP SCREEN,U Negative Normal NEGATIVE [facility] Comment on above: Result Comment: CUTO FF LEVEL: 25 NG/ML Cross-reactivity has been reported with dextromethorphan. Performed By: #### A PTT #### [place] [address] OPIATE/OPIOID/BENZO EXTENDED PRESCRIPTION COMPLIANCEon 11-15-2022 Lab Specimen Source Urine Normal [facility] Comment on above: Performed By: #### A PTT #### [facility] [address] [place] [address] Tobacco Screening.on 023 Adult depression screening assessment No [facility] Work Phone: Tobacco use status [facility]PHS b) No -[facility] Work Phone: Tobacco Screening.on 023 Tobacco use status [facility] b) No -[facility] Work Phone: [phone] MRI L Spine w/wo Contraston 07-18-2022 MR Lumbar spine WO and W contrast IT Normal [facility] Work Phone: NR MR L-SPINE WO/W CONTRASTo n 07-18-2022 NR MR L-SPINE WO/W CONTRAST Patient Name: CHRISTINE MAYS STUDY: MR L-SPINE WO/W CONTRAST; 07/18/2022 12:22 pm INDICATION: Worsening pain in low back and weakness in lower extremities. M54.50: Chronic low back pain R29.898: Lower extremity weakness G89.29:. COMPARISON: 04/08/2016. ACCESSION NUMBER(S): [id number] ORDERING CLINICIAN: JAMIN RICKETTS TECHNIQUE: Sagittal T1, T2, STIR, axial T1 and T2 weighted images of the lumbar spine were acquired. FINDINGS: For counting purposes the last lumbarized vertebral body is labeled L5. There is trace anterolisthesis of L2 on L3 and L3 on L4 and grade 1 anterolisthesis of L4 on L5. There is a prominent Schmorl's node along the superior endplate of T11 and L2, similar to the prior exam. Vertebral body heights are otherwise maintained. Mildly heterogeneous bone marrow signal without a focal lesion on the STIR sequence is nonspecific. There is desiccated disc signal throughout the lumbar spine with varying degrees of edyd-ub-ylagtwnc disc height loss most pronounced at L5-S1. The conus terminates at T12-L1. Evaluation of the paraspinal soft tissues is unremarkable. Evaluation by level: T11-T12: Disc bulge and facet arthrosis. Mild spinal canal stenosis. Moderate neural foraminal stenosis. T12-L1: Disc bulge and facet arthrosis. No significant spinal canal stenosis. Mild bilateral neural foraminal stenosis L1-L2: Mild disc bulge and facet arthrosis. No significant spinal canal stenosis. Moderate right and no significant left neural foraminal stenosis. L2-L3: Disc bulge and facet arthrosis. No significant spinal canal stenosis. Mild bilateral neural foraminal stenosis. L3-L4: Disc bulge, facet arthrosis and ligamentum flavum thickening. There is fluid within the facet joints. Moderate spinal canal stenosis. Moderate neural foraminal stenosis. L4-L5: Disc bulge, facet arthrosis and ligamentum flavum thickening. Moderate spinal canal stenosis, narrowing of the subarticular recess and mild bilateral neural foraminal stenosis. L5-S1: Disc bulge and facet arthrosis. No significant spinal canal stenosis. No significant neural foraminal stenosis. IMPRESSION: Multilevel degenerative disc disease and facet arthrosis most pronounced at L4-L5 with grade 1 anterolisthesis, moderate spinal canal stenosis and mild bilateral neural foraminal stenosis. Degenerative changes are increased since the prior exam 04/08/2016. Electronically signed by: LENORA HILL MD [facility] Office Visit ([facility] e)on 06-25-2022 Follow-up visit Diagnoses/Problems Chronic low back pain (724.2,338.29) (M54.50,G89.29) Lower extremity weakness (729.89) (R29.898) Orders Chronic low back pain, Lower extremity weakness MRI L Spine w/wo Contrast; Status:Hold For - Scheduling; Requested for:[id number]; Does patient have exposure to metal fragments? : N Radiologist to Determine Optimal Study : Y Does the patient have a Cochlear Implant, Pacemaker, Defibrilator, Pacing Wire, Brain Aneurysm Clip, Implanted Nerve or Bone Graft Simulator, Implanted Breast Tissue Owner, Glucose Monitor, or Neulasta Device? : No Is the patient or breast feeding? : No What are the patient's signs and symptoms? : Worsening pain in low back and weakness in lower extremities. Physical Therapy - General Referral Evaluation and Treatment Evaluate AND Treat Status: Hold For - Scheduling Requested for: [id number] Chronic pain Renew: traMADol HCl - 50 MG Oral Tablet; take 1 tabs po BID morning and before bed timme. 2 tab in the afternoon. do no take with xanax. do not drive or drink alcohol while on med Chief Complaint Pain in back and legs History of Present Illness Patient is here for evaluation of her lower back pain and pain radiating to her bilateral lower extremities. She sustained a fall in late December and since then she has been having pain. However she feels that the pain and symptoms are progressively worsening. She currently has weakness that she is experiencing in bilateral lower extremities along with the pain. It is especially worse in the mornings takes a while to feel better. The weakness in her lower extremities is most bothersome to her at this point. She denies saddle anesthesia, bowel or bladder control loss. Reports that she had an x-ray which did not show any significant abnormalities. Plan: Given the weakness that she is experiencing which is new from before I will order an MRI. Starting physical therapy. Dr. Hanna - neurosurgery, [place], [place]-if referral is needed. Follow up in 1 month. Review of Systems ROS negative except discussed above in HPI. Active Problems Acute deep vein thrombosis (DVT) of popliteal vein of right lower extremity (453.41) (I82.431) Anxiety (300.00) (F41.9) Arthritis of hand (716.94) (M19.049) Benign essential HTN (401.1) (I10) Bleeding from varicose vein (454.8) (I83.899) Bleeding from varicose vein (454.8) (I83.899) Breast cancer screening by mammogram (V76.12) (Z12.31) Chest pain (786.50) (R07.9) Chronic low back pain (724.2,338.29) (M54.50,G89.29) Chronic neck pain (723.1,338.29) (M54.2,G89.29) Chronic pain (338.29) (G89.29) Chronic use of benzodiazepine for therapeutic purpose (V58.69) (Z79.899) Chronic venous hypertension (idiopathic) with inflammation of bilateral lower extremity (459.32) (I87.323) Cough (786.2) (R05.9) Degeneration of intervertebral disc of cervical region (722.4) (M50.30) Degeneration of intervertebral disc of thoracic region (722.51) (M51.34) Degenerative arthritis of cervical spine (721.0) (M47.812) Encounter for immunization (V03.89) (Z23) Encounter for screening for other disorder (V82.89) (Z13.89) Fall at home (E888.9,E849.0) (W19.XXXA,Y92.009) Hypothyroidism (244.9) (E03.9) Insomnia (780.52) (G47.00) Joint pain in both hands (719.44) (M25.541,M25.542) Long-term use of high-risk medication (V58.69) (Z79.899) Lumbar spinal stenosis (724.02) (M48.061) Muscle spasm (728.85) (M62.838) Near syncope (780.2) (R55) Obesity (278.00) (E66.9) Opioid use (305.50) (F11.90) Osteoarthritis of lower leg, localized (715.36) (M17.10) Osteopenia (733.90) (M85.80) Overweight with body mass index (BMI) of 27 to 27.9 in adult (278.02,V85.23) (E66.3,Z68.27) Pain of right hand (729.5) (M79.641) Postmenopausal (V49.81) (Z78.0) Trigger finger (727.03) (M65.30) Upper back pain (724.5) (M54.9) Varicose vein of leg (454.9) (I83.90) 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) (I83.893) Varicose veins of bilateral lower extremities with pain (454.8) (I83.813) Wellness examination (V70.0) (Z00.00) Worst headache of life (784.0) (R51.9) Past Medical History History of chronic back pain (V13.59) (Z87.39) History of depression (V11.8) (Z86.59) History of hematuria (V13.09) (Z87.448) History of hydronephrosis (V13.09) (Z87.448) History of nausea and vomiting (V12.79) (Z87.898) Surgical History History of Breast reduction History of Carpal tunnel surgery History of Ganglion cyst excision History of Hysterectomy History of Pilonidal cyst removal History of Tonsillectomy with adenoidectomy History of Tubal ligation Family History Family history of cardiac disorder (V17.49) (Z82.49) Family history of cardiac disorder (V17.49) (Z82.49) Family history of cardiac disorder (V17.49) (Z82.49) Social History Consumes alcohol (V49.89) (Z78.9) Former smoker (V15.82) (Z87.891) Quit 50 yrs ago No recent domestic travel No r (more content not included)... Normal [email or web address] Tobacco Screening.on 022 Tobacco use status [facility]PHS b) No [facility] Work Phone: OPIATE/OPIOID/BENZO EXTENDED PRESCRIPTION COMPLIANCEon 05-10-2022 6-ACETYLMORPHINE <25 Normal Cutoff <25 [facility] Comment on above: Performed By: #### D SBOP #### [facility] [address] [place] [address] EDDP,U <25 Normal Cutoff <25 [facility] Comment on above: Result Comment: The performance characteristics of the Methadone Confirmation, Urine has been validated by the individual laboratory site where testing is performed. It has not been cleared or approved by the FDA. However the FDA has determined that such clearance or approval is not necessary. Our Laboratory is certified under the Clinical Laboratory Improvement Amendments of 1988 (CLIA) as qualified to perform high complexity clinical laboratory testing. Performed By: #### D SBOP #### [facility] [address] [place] [address] FENTANYL CONFIRM,U <2.5 Normal Cutoff<2.5 [facility] Comment on above: Performed By: #### D SBOP #### [facility] [address] [place] [address] METHADONE,U <25 Normal Cutoff <25 [facility] Comment on above: Performed By: #### D SBOP #### [facility] [address] [place] [address] MORPHINE <50 Normal Cutoff <50 [facility] Comment on above: Performed By: #### D SBOP #### [facility] [address] [place] [address] NORFENTANYL CONFIRM,U <2.5 Normal Cutoff<2.5 [facility] Comment on above: Result Comment: The performance characteristics of the Fentanyl Confirmation, Urine has been validated by the individual laboratory site where testing is performed. It has not been cleared or approved by the FDA. However the FDA has determined that such clearance or approval is not necessary. Our Laboratory is certified under the Clinical Laboratory Improvement Amendments of 1988 (CLIA) as qualified to perform high complexity clinical laboratory testing. Performed By: #### D SBOP #### [facility] [address] [place] [address] NOROXYCODONE <25 Normal Cutoff <25 [facility] Comment on above: Performed By: #### D SBOP #### [facility] [address] [place] [address] O-DESMETHYLTRAMADOL ,U >1000 Abnormal Cutoff <50 [facility] Comment on above: Result Comment: Tram adol metabolite; consistent with use of a drug containing tramadol, such as Ultram. The performance characteristics of the Tramadol Confirmation, Urine has been validated by the individual laboratory site where testing is performed. It has not been cleared or approved by the FDA. However the FDA has determined that such clearance or approval is not necessary. Our Laboratory is certified under the Clinical Laboratory Improvement Amendments of 1988 (CLIA) as qualified to perform high complexity clinical laboratory testing. Performed By: #### D SBOP #### [facility] [address] [place] [address] OXYCODONE <25 Normal Cutoff <25 [facility] Comment on above: Performed By: #### D SBOP #### [facility] [address] [place] [address] OXYMORPHONE <25 Normal Cutoff <25 [facility] Comment on above: Result Comment: The performance characteristics of the Opiate Confirmation, Urine has been validated by the individual laboratory site where testing is performed. It has not been cleared or approved by the FDA. However the FDA has determined that such clearance or approval is not necessary. Our Laboratory is certified under the Clinical Laboratory Improvement Amendments of 1988 (CLIA) as qualified to perform high complexity clinical laboratory testing. Performed By: #### D SBOP #### [facility] [address] [place] [address] TRAMADOL CONFIRM,U >1000 Abnormal Cutoff <50 [facility] Comment on above: Result Comment: Cons istent with use of a drug containing tramadol, such as Ultram. Performed By: #### D SBOP #### [facility] [address] [place] [address] 7-AMINOCLONAZEPAM <25 Normal Cutoff <25 [facility] Comment on above: Performed By: #### D SBOP #### [facility] [address] [place] [address] ALPHA-HYDROXYALPRAZ OLAM <25 Normal Cutoff <25 [facility] Comment on above: Performed By: #### D SBOP #### [facility] [address] [place] [address] ALPHA-HYDROXYMIDAZO HERNANDEZ <25 Normal Cutoff <25 [facility] Comment on above: Performed By: #### D SBOP #### [facility] [address] [place] [address] ALPRAZOLAM <25 Normal Cutoff <25 [facility] Comment on above: Performed By: #### D SBOP #### [facility] [address] [place] [address] CHLORDIAZEPOXIDE <25 Normal Cutoff <25 [facility] Comment on above: Performed By: #### D SBOP #### [facility] [address] [place] [address] CLONAZEPAM <25 Normal Cutoff <25 [facility] Comment on above: Performed By: #### D SBOP #### [facility] [address] [place] [address] CODEINE <50 Normal Cutoff <50 [facility] Comment on above: Performed By: #### D SBOP #### [facility] [address] [place] [address] DIAZEPAM <25 Normal Cutoff <25 [facility] Comment on above: Performed By: #### D SBOP #### [facility] [address] [place] [address] HYDROCODONE <25 Normal Cutoff <25 [facility] Comment on above: Performed By: #### D SBOP #### [facility] [address] [place] [address] HYDROMORPHONE <25 Normal Cutoff <25 [facility] Comment on above: Performed By: #### D SBOP #### [facility] [address] [place] [address] LORAZEPAM <25 Normal Cutoff <25 [facility] Comment on above: Performed By: #### D SBOP #### [facility] [address] [place] [address] MIDAZOLAM <25 Normal Cutoff <25 [facility] Comment on above: Performed By: #### D SBOP #### [facility] [address] [place] [address] NORDIAZEPAM <25 Normal Cutoff <25 [facility] Comment on above: Performed By: #### D SBOP #### [facility] [address] [place] [address] NORHYDROCODONE <25 Normal Cutoff <25 [facility] Comment on above: Performed By: #### D SBOP #### [facility] [address] [place] [address] OXAZEPAM <25 Normal Cutoff <25 [facility] Comment on above: Performed By: #### D SBOP #### [facility] [address] [place] [address] TEMAZEPAM <25 Normal Cutoff <25 [facility] Comment on above: Result Comment: The performance characteristics of the Benzodiazepine Confirmation, Urine has been validated by the individual laboratory site where testing is performed. It has not been cleared or approved by the FDA. However the FDA has determined that such clearance or approval is not necessary. Our Laboratory is certified under the Clinical Laboratory Improvement Amendments of 1988 (CLIA) as qualified to perform high complexity clinical laboratory testing. Performed By: #### D SBOP #### [facility] [address] [place] [address] ZOLPIDEM METABOLITE[ZCA] ,U <25 Normal Cutoff <25 [facility] Comment on above: Result Comment: The performance characteristics of the Zolpidem Confirmation, Urine has been validated by the individual laboratory site where testing is performed. It has not been cleared or approved by the FDA. However the FDA has determined that such clearance or approval is not necessary. Our Laboratory is certified under the Clinical Laboratory Improvement Amendments of 1988 (CLIA) as qualified to perform high complexity clinical laboratory testing. Performed By: #### D SBOP #### [facility] [address] [place] [address] ZOLPIDEM,URINE <25 Normal Cutoff <25 [facility] Comment on above: Performed By: #### D SBOP #### [facility] [address] [place] [address] OPIATE/OPIOID/BENZO EXTENDED PRESCRIPTION COMPLIANCEon 05-08-2022 Specific gravity (U) [Rel density] 1.0090 Normal Valid 1.0020-1.020 0 [facility] Comment on above: Performed By: #### D SBOP #### [facility] [address] [place] [address] AMPHETAMINE SCREEN,U Negative Normal NEGATIVE [facility] Comment on above: Result Comment: CUTO FF LEVEL: 500 NG/ML Cross-reactivity has been reported with high concentrations of the following drugs: buproprion, chloroquine, chlorpromazine, ephedrine, mephentermine, fenfluramine, phentermine, phenylpropanolamine, pseudoephedrine, and propranolol. Performed By: #### D SBOP #### [facility] [address] [place] [address] BARBITURATES SCREEN,U Negative Normal NEGATIVE [facility] Comment on above: Result Comment: CUTO FF LEVEL: 200 NG/ML Performed By: #### D SBOP #### [facility] [address] [place] [address] CANNABINOIDS SCREEN,U Negative Normal NEGATIVE [facility] Comment on above: Result Comment: CUTO FF LEVEL: 50 NG/ML Performed By: #### D SBOP #### [facility] [address] [place] [id number] COCAINE METABOLITE SCREEN,U Negative Normal NEGATIVE [facility] Comment on above: Result Comment: CUTO FF LEVEL: 150 NG/ML Performed By: #### D SBOP #### [facility] [address] [place] [id number] Creatinine [Mass/Vol] 19.8 mg/dL Abnormal [facility] Comment on above: Result Comment: A ur ine creatinine result >= 20 mg/dL is considered valid without suspicion of dilution. Samples with results below this range will automatically reflex to specific gravity testing to verify specimen integrity. Performed By: #### D SBOP #### [facility] [address] [place] [id number] DRUG SCREEN COMMENT. SEE BELOW Normal [facility] Comment on above: Result Comment: Drug screen results are presumptive and should not be used to assess compliance with prescribed medication. Definitive confirmatory drug testing has been added to this sample for any positive screen result and will be reported separately. . Toxicology screening results are reported qualitatively. The concentration must be greater than or equal to the cutoff to be reported as positive. The concentration at which the screening test can detect an individual drug or metabolite varies. The absence of expected drug(s) and/or drug metabolite(s) may indicate non-compliance, inappropriate timing of specimen collection relative to drug administration, poor drug absorption, diluted/adulterated urine, or limitations of testing. For medical purposes only; not valid for forensic use. . Interpretive questions should be directed to the laboratory medical directors. Performed By: #### D SBOP #### [facility] [address] [place] [id number] PCP SCREEN,U Negative Normal NEGATIVE [facility] Comment on above: Result Comment: CUTO FF LEVEL: 25 NG/ML Cross-reactivity has been reported with dextromethorphan. Performed By: #### D SBOP #### [facility] [address] [place] [id number] Laboratory - Chemistry and C hemistry - challengeon 05-07-2022 Creatinine (Body fld) [Mass/Vol] 19.8 mg/dL Abnormal -[facility] Work Phone: Comment on above: A urine creatinine r esult >= 20 mg/dL is considered valid without suspicion of dilution. Samples with results below this range will automatically reflex to specific gravity testing to verify specimen integrity. Specific gravity (U) [Rel density] 1.0090 1 See Below [facility] Work Phone: Comment on above: Reference Range: Sachi id 1.0020-1.0200 Laboratory - Drug toxicology on 05-07-2022 1-Hydroxymidazolam Confirm (U) [Mass/Vol] <25 Cutoff <25 [facility] Work Phone: 4-Vccsozscsu-3,5-Di methyl-3,3-Diphenyl pyrrolidine (EDDP) Confirm (U) [Mass/Vol] <25 Cutoff <25 [facility] Work Phone: Comment on above: The performance rose marie acteristics of the Methadone Confirmation, Urine has been validated by the individual laboratory site where testing is performed. It has not been cleared or approved by the FDA. However the FDA has determined that such clearance or approval is not necessary. Our Laboratory is certified under the Clinical Laboratory Improvement Amendments of 1988 (CLIA) as qualified to perform high complexity clinical laboratory testing. 6-Monoacetylmorphin e (6-RITA) Confirm (U) [Mass/Vol] <25 Cutoff <25 [facility] Work Phone: 7-Aminoclonazepam Confirm (U) [Mass/Vol] <25 Cutoff <25 [facility] Work Phone: Alpha hydroxyalprazolam Confirm (U) [Mass/Vol] <25 Cutoff <25 [facility] Work Phone: ALPRAZolam Confirm (U) [Mass/Vol] <25 Cutoff <25 [facility] Work Phone: Amphetamines Screen Ql (U) Negative NEGATIVE [facility] Work Phone: Comment on above: CUTOFF LEVEL: 500 NG /ML Cross-reactivity has been reported with high concentrations of the following drugs: buproprion, chloroquine, chlorpromazine, ephedrine, mephentermine, fenfluramine, phentermine, phenylpropanolamine, pseudoephedrine, and propranolol. Barbiturates Screen Ql (U) Negative NEGATIVE [facility] Work Phone: Comment on above: CUTOFF LEVEL: 200 NG /ML Benzoylecgonine Screen Ql (U) Negative NEGATIVE [facility] Work Phone: Comment on above: CUTOFF LEVEL: 150 NG /ML Cannabinoids Screen Ql (U) Negative NEGATIVE [facility] Work Phone: Comment on above: CUTOFF LEVEL: 50 NG/ ML chlordiazePOXIDE Confirm (U) [Mass/Vol] <25 Cutoff <25 -[facility] Work Phone: clonazePAM Confirm (U) [Mass/Vol] <25 Cutoff <25 [facility] Work Phone: Codeine Confirm (U) [Mass/Vol] <50 Cutoff <50 [facility] Work Phone: diazePAM Confirm (U) [Mass/Vol] <25 Cutoff <25 [facility] Work Phone: fentaNYL Confirm (U) [Mass/Vol] <2.5 Cutoff<2.5 [facility] Work Phone: HYDROcodone Confirm (U) [Mass/Vol] <25 Cutoff <25 [facility] Work Phone: HYDROmorphone Confirm (U) [Mass/Vol] <25 Cutoff <25 [facility] Work Phone: LORazepam Confirm (U) [Mass/Vol] <25 Cutoff <25 [facility] Work Phone: Methadone Confirm (U) [Mass/Vol] <25 Cutoff <25 [facility] Work Phone: Midazolam Confirm (U) [Mass/Vol] <25 Cutoff <25 [facility] Work Phone: Morphine Confirm (U) [Mass/Vol] <50 Cutoff <50 [facility] Work Phone: Nordiazepam Confirm (U) [Mass/Vol] <25 Cutoff <25 [facility] Work Phone: Norfentanyl Confirm (U) [Mass/Vol] <2.5 Cutoff<2.5 [facility] Work Phone: Comment on above: The performance rose marie acteristics of the Fentanyl Confirmation, Urine has been validated by the individual laboratory site where testing is performed. It has not been cleared or approved by the FDA. However the FDA has determined that such clearance or approval is not necessary. Our Laboratory is certified under the Clinical Laboratory Improvement Amendments of 1988 (CLIA) as qualified to perform high complexity clinical laboratory testing. Norhydrocodone Confirm (U) [Mass/Vol] <25 Cutoff <25 [facility] Work Phone: Noroxycodone Confirm (U) [Mass/Vol] <25 Cutoff <25 [facility] Work Phone: Nortramadol (U) [Mass/Vol] >1000 Abnormal Cutoff <50 [facility] Work Phone: Comment on above: Tramadol metabolite; consistent with use of a drug containing tramadol, such as Ultram. The performance characteristics of the Tramadol Confirmation, Urine has been validated by the individual laboratory site where testing is performed. It has not been cleared or approved by the FDA. However the FDA has determined that such clearance or approval is not necessary. Our Laboratory is certified under the Clinical Laboratory Improvement Amendments of 1988 (CLIA) as qualified to perform high complexity clinical laboratory testing. Oxazepam Confirm (U) [Mass/Vol] <25 Cutoff <25 [facility] Work Phone: oxyCODONE Confirm (U) [Mass/Vol] <25 Cutoff <25 [facility] Work Phone: oxyMORphone Confirm (U) [Mass/Vol] <25 Cutoff <25 [facility] Work Phone: Comment on above: The performance rose marie acteristics of the Opiate Confirmation, Urine has been validated by the individual laboratory site where testing is performed. It has not been cleared or approved by the FDA. However the FDA has determined that such clearance or approval is not necessary. Our Laboratory is certified under the Clinical Laboratory Improvement Amendments of 1988 (CLIA) as qualified to perform high complexity clinical laboratory testing. Phencyclidine Ql (U) Negative NEGATIVE [facility] Work Phone: Comment on above: CUTOFF LEVEL: 25 NG/ ML Cross-reactivity has been reported with dextromethorphan. Temazepam Confirm (U) [Mass/Vol] <25 Cutoff <25 [facility] Work Phone: Comment on above: The performance rose marie acteristics of the Benzodiazepine Confirmation, Urine has been validated by the individual laboratory site where testing is performed. It has not been cleared or approved by the FDA. However the FDA has determined that such clearance or approval is not necessary. Our Laboratory is certified under the Clinical Laboratory Improvement Amendments of 1988 (CLIA) as qualified to perform high complexity clinical laboratory testing. traMADol Confirm (U) [Mass/Vol] >1000 Abnormal Cutoff <50 [facility] Work Phone: Comment on above: Consistent with use of a drug containing tramadol, such as Ultram. Zolpidem (U) [Mass/Vol] <25 Cutoff <25 [facility] Work Phone: Medicare Annual Wellness Vis iton 05-07-2022 Medicare Annual Wellness Visit *Chief Complaint 3 mth ov, AWV History of Present Illness The patient is being seen for the subsequent annual wellness visit. Medications and Supplements: Review of all medications by a prescribing practitioner or clinical pharmacist (such as prescriptions, OTCs, herbal therapies and supplements) documented in the medical record. Yes, the patient is using opioids. Patient Self Assessment of Health Status: good. Tobacco use: Non-User Alcohol use: Non-User Illicit drug use: Non-User Current diet: well balanced diet and does consume adequate fluids. Exercise Frequency: infrequently. Depression/Suicide Screening: . During the past 2 weeks, the patient has not felt down, depressed or hopeless. During the past 2 weeks, the patient has not felt little interest or pleasure in doing things. Hearing Impairment: none. Cognitive Impairment: No cognitive impairment observed, patient or family reported no cognitive impairment. Bathing: performs independently. Dressing: performs independently. Walking: performs independently. Toileting: performs independently. Feeding: performs independently. Personal Hygiene: performs independently. Managing Finances: performs independently. Shopping: performs independently. Managing Medications: performs independently. Housework / Basic Home Maintenance: performs independently. Handling Transportation: performs independently. Preparing Meals: performs independently. Using the Telephone/ Communication Devices: performs independently. Falls Risk Screening:. CHRISTINE has fallen in the last 6 months. Her fall resulted in the following injury: 2 goose eggs on back of head with first fall, goose egg on forhead with 2nd fall. Home safety risk factors: none. Advance directives:. Advanced Care Planning discussed and documented advance care plan or surrogate decision maker documented in the medical record. Patient has living will. Patient has healthcare POA. Patient's End of Life Decisions: End of life decisions were reviewed with the patient. I agree to follow the patient's decisions. Concerns with the patient's end of life decisions: DNR. Patient is here for follow-up. Patient had significant life changing events in the last three weeks. His son and is in the hospital. Additionally, her good neighbor is as well. Reports that her neck pain and arthritis in other joints of the body are worsening. She has sustained a fall recently due to which her lower back pain is worsening. She has been to pain management physician. He has ordered an MRI. It is pending. Reports that the current regimen with tramadol is moderately helpful. However there are times that her pain is significantly worse. She is ending up taking Tylenol and ibuprofen additionally those days. Hand pain worse too. Plan: Discussed at length about the options of treatment. Started Maloxicam to be taken along with Tramadol in the past. Discussed the potential risk for affecting kidney function, causing gastritis and other potential side effects. Recommended to use it with caution. May need to consider discussing about her mood and management of more related conditions if needed. Hypertension blood pressure is elevated today. Patient reports that she has been under a lot of stress lately. Additionally she has pain which is not well controlled at this time. Plan: Recommended to check blood pressure at home. If persistently elevated then will consider changing blood pressure medication. Patient does not want to change her blood pressure medication at this time. Hypothyroidism: TSH was normal in September 2021. We will continue with the current regimen. Follow-up in 3 months. Sooner if worsening of symptoms. I have personally reviewed the OARRS report for CHRISTINE MAYS. I have considered the risks of abuse, dependence, addiction and diversion. I have the following concerns: no. Is the patient prescribed a combination of a benzodiazepine and opioid? No. Last urine drug screening date/ordered today: 05/07/2022 Results of last screen: Results as expected. Date of the last Controlled Substance Agreement: 05/07/2022 OPIOID What is the patient?s goal of therapy? back pain control. Is this being achieved with current treatment? yes. Attestation statement: I feel that it is clinically indicated to continue this current medication regimen after consideration of alternative therapies, and other non-opioid treatments. Opioid Risk Screening: Opioid Risk Tool Last opioid risk screening date/ordered today: 08/30/2020 Family history of substance abuse: Alcohol = 1 Patient's total score is 1, within range of Low Risk (<= 3). Pain Scale Screening: Pain Assessment and Documentation Tool (PADT) Date of Assessment: 05/07/2022 Analgesia: Patient reports her pain level on average during the past week is 8 on a 0 - 10 scale. Patient reports that her pain level at its worst during the past week was 10 on a 0 -10 scale. 50% (more content not included)... Normal [employer]works No Panel Informationon 05-07 SEE BELOW [facility] Work Phone: Comment on above: Drug screen results are presumptive and should not be used to assess compliance with prescribed medication. Definitive confirmatory drug testing has been added to this sample for any positive screen result and will be reported separately. .Toxicology screening results are reported qualitatively. The concentration must be greater than or equal to the cutoff to be reported as positive. The concentration at which the screening test can detect an individual drug or metabolite varies. The absence of expected drug(s) and/or drug metabolite(s) may indicate non-compliance, inappropriate timing of specimen collection relative to drug administration, poor drug absorption, diluted/adulterated urine, or limitations of testing. For medical purposes only; not valid for forensic use. .Interpretive questions should be directed to the laboratory medical directors. <25 Cutoff <25 [facility] Work Phone: Comment on above: The performance rose marie acteristics of the Zolpidem Confirmation, Urine has been validated by the individual laboratory site where testing is performed. It has not been cleared or approved by the FDA. However the FDA has determined that such clearance or approval is not necessary. Our Laboratory is certified under the Clinical Laboratory Improvement Amendments of 1988 (CLIA) as qualified to perform high complexity clinical laboratory testing. Tobacco Screening.on 022 Tobacco use status [facility] b) No -[facility] Work Phone: XR LUMBAR SPINE AP/LAT WITH OBLIQUESon 04-22-2022 XR LUMBAR SPINE AP/LAT WITH OBLIQUES EXAMINATION: XR LUMBAR SPINE AP/LAT WITH OBLIQUES 04/22/2022 4:09 pm HISTORY: ORDERING SYSTEM PROVIDED HISTORY: Lumbago, TECHNOLOGIST PROVIDED HISTORY: Illness/Other Reason for exam: Lumbar spondylosis Cancer History: u Surgery, RadiationHistory: u Encounter Type: Initial Additional signs and symptoms: Lumbago ORDERING SYSTEM PROVIDED DIAGNOSIS CODES: M54.50 Lumbago M47.816 Lumbar spondylosis FINDINGS: BONES: 6 mm anterolisthesis L3 on L4. Rotatory levocurvature of the thoracolumbar spine centered at L1 50% superior compression fracture of L2, sclerosis suggests chronic change. Moderate degenerative spondylosis. Moderate facet osteoarthropathy DISC SPACES: Multilevel disc space narrowing, moderate to severe. Vacuum disc L3-L4 PARASPINOUS:No paraspinous abnormality is seen. OTHER: Linear metallic foreign body within the low pelvis of unknown etiology this measures 3.2 cm in length by 0.1 cm IMPRESSION: Moderate to severe degenerative changes with levocurvature and L3-L4 spondylolisthesis Linear metallic foreign body in the pelvis Workstation ID: [id number] Dictated by: AISSATOU LIZARRAGA on FriApr 24, 2022 7:16:02 PM EDT Transcribed by: AISSATOU LIZARRAGA on FriApr 24, 2022 7:16:02 PM EDT Finalized by: AISSATOU LIZARRAGA on FriApr 24, 2022 7:16:02 PM EDT [facility] Comment on above: Order Comment: Injur y/Trauma or Illness?:Illness/Other How long have you had these symptoms (acute/chronic)?:Chronic Reason for exam?:Lumbar spondylosis History of cancer?:u Surgeries, chemotherapy, or radiation?:u Type of Exam?:Initial Additional signs and symptoms?:Lumbago Office Visit (Family Katelyn donahue)on 02-08-2022 Follow-up visit Diagnoses/Problems 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 1 tab in the afternoon. do no take with xanax. do not drive or drink alcohol while on med Hypothyroidism Renew: Levothyroxine Sodium 100 MCG Oral Tablet; Take 1 tablet daily Insomnia Renew: traZODone HCl - 50 MG Oral Tablet; TAKE 1 TABLET AT BEDTIME Chief Complaint pt. c/o shoulder, neck, and head pain. History of Present Illness Patient is here for follow-up. Reports that her neck pain and arthritis in other joints of the body are worsening. Reports that the current regimen with tramadol is moderately helpful. However there are times that her pain is significantly worse. She is ending up taking large amounts of Tylenol and ibuprofen. Hand pain worse too. Plan: Discussed at length about the options of treatment. Starting Maloxicam to be taken along with Tramadol. Discussed the potential risk for affecting kidney function, causing gastritis and other potential side effects. Recommended to use it with caution. May need to consider discussing about her mood and management of more related conditions if needed. Hypertension blood pressure is elevated today. Has been better than in the past. Patient reports that she has been under a lot of stress lately. Additionally she has pain which is not well controlled at this time. She thinks elbow factors may have played with elevated blood pressure. Plan: Recommended to check blood pressure at home. If persistently elevated then will consider changing blood pressure medication. Patient does not want to change her blood pressure medication at this time. Hypothyroidism: TSH was normal in September 2021. We will continue with the current regimen. Follow-up in 3 months. Sooner if worsening of symptoms. I have personally reviewed the OARRS report for CHRISTINE MAYS. I have considered the risks of abuse, dependence, addiction and diversion. I have the following concerns: no. Is the patient prescribed a combination of a benzodiazepine and opioid? Yes. Uses meds on an as needed basis. Does not take them at the same time. Opioid is for her chronic pain and benzo is for her anxiety. Risks, benefits and alternatives have been discussed w/ pt - pt ok w/ current meds she is on, as her chronic pain and anxiety are controlled. Rx for narcan has been sent to pharm - pt counseled on how to use and when to use it Last urine drug screening date/ordered today: 06/18/21 Results of last screen: Results as expected. Date of the last Controlled Substance Agreement: 06/18/21 OPIOID What is the patient?s goal of therapy? back pain control. Is this being achieved with current treatment? yes. Attestation statement: I feel that it is clinically indicated to continue this current medication regimen after consideration of alternative therapies, and other non-opioid treatments. Opioid Risk Screening: Opioid Risk Tool Last opioid risk screening date/ordered today: 10/02/2021 Family history of substance abuse: Alcohol = 1 Patient's total score is 1, within range of Low Risk (<= 3). Pain Scale Screening: Pain Assessment and Documentation Tool (PADT) Date of Assessment: 10/02/2021 Analgesia: Patient reports her pain level on average during the past week is 6 on a 0 - 10 scale. Patient reports that her pain level at its worst during the past week was 9 on a 0 -10 scale. 50% % of pain has been relieved during the past week per patient Patient states that the amount of pain relief she is now obtaining from her current pain reliever(s) is enough to make a real difference in her life. Query to clinician: Is the patient's pain relief clinically significant? Yes Activities of Daily Living: Physical functioning: Worse Family relationships: Same Social relationships: Same Mood: Same Sleep patterns: Same Overall functioning: Same Adverse Events: No, CHRISTINE MAYS is not experiencing side effects from current pain reliever. Patients overall severity of side effect: None Is your overall impression that this patient is benefiting (e.g., benefits, such as pain relief, outweigh side effects) from opioid therapy? Yes. I have calculated the patient's Morphine Dose Equivalent (MED): I have considered referral to Pain Management and/or a specialist, and do not feel it is necessary at this time. BENZODIAZEPINES What is the patient?s goal of therapy? control anxiety. Review of Systems ROS negative except discussed above in HPI. Active Problems Acute deep vein thrombosis (DVT) of popliteal vein of right lower extremity (453.41) (I82.431) Anxiety (300.00) (F41.9) Benign essential HTN (401.1) (I10) Bleeding from varicose vein (454.8) (I83.899) Bleeding from varicose vein (454.8) (I83.899) Breast cancer screening by mammogram (V76.12) (Z12.31) C (more content not included)... Normal [email or web address] Tobacco Screening.on 022 Fall risk assessment b) One or more falls in the last year [facility] Work Phone: Tobacco use status CPHS b) No [facility] Work Phone: Radiologyon 12-05-2021 XR Thoracic spine 3 Views Normal [facility] Work Phone: XR Cervical spine 3 Views Normal [facility] Work Phone: Office Visit ([facility] Medic[facility] e)on 12-03-2021 Follow-up visit Diagnoses/Problems Upper back pain (724.5) (M54.9) Chronic neck pain (723.1,338.29) (M54.2,G89.29) Orders Benign essential HTN Renew: Triamterene-HCTZ 75-50 MG Oral Tablet; TAKE 1 TABLET DAILY Chronic neck pain, Upper back pain Xray Cervical Spine 2 or 3 View; Status:Hold For - Scheduling; Requested for:03Dec2021; Radiologist to Determine Optimal Study : Y What are the patient's signs and symptoms? : lower neck/upper back pain. (appears to be in CT joint) Xray Thoracic Spine 3 View; Status:Hold For - Scheduling; Requested for:03Dec2021; Radiologist to Determine Optimal Study : Y What are the patient's signs and symptoms? : lower neck/upper back pain. (appears to be in CT joint) Physical Therapy - General Referral Evaluation and Treatment Evaluate AND Treat Status: Complete Done: 03Dec2021 [facility] [place] Muscle spasm Renew: tiZANidine HCl - 2 MG Oral Tablet; TAKE 1 TABLET Every 8 hours PRN muscle spasm. Do not drive or drink alcohol while on med Chief Complaint pt. c/o neck and shoulder pain x6 weeks. History of Present Illness Patient is here for evaluation of upper back pain. Patient reports that her symptoms started about 3 weeks ago. She started Silver sneakers and has been working out more than usual. She started to have pain in the upper back/lower neck. Pain radiates to bilateral shoulders. She is unable to hook her close in the back. Has been under distress due to this pain. She has had arthritis in the neck. Wonders reports worsening. Plan: Concerning for nerve root impingement/disc prolapse. X-rays ordered for further evaluation. Recommended physical therapy which patient is willing to participate. Physical therapy referral is provided. Patient has tizanidine and tramadol prescription. She will use as needed. Follow-up in 8 weeks to reassess. Review of Systems ROS negative except discussed above in HPI. Active Problems Acute deep vein thrombosis (DVT) of popliteal vein of right lower extremity (453.41) (I82.431) Anxiety (300.00) (F41.9) Benign essential HTN (401.1) (I10) Bleeding from varicose vein (454.8) (I83.899) Bleeding from varicose vein (454.8) (I83.899) Breast cancer screening by mammogram (V76.12) (Z12.31) Chest pain (786.50) (R07.9) Chronic low back pain (724.2,338.29) (M54.50,G89.29) Chronic neck pain (723.1,338.29) (M54.2,G89.29) Chronic pain (338.29) (G89.29) Chronic use of benzodiazepine for therapeutic purpose (V58.69) (Z79.899) Chronic venous hypertension (idiopathic) with inflammation of bilateral lower extremity (459.32) (I87.323) Cough (786.2) (R05.9) Degeneration of intervertebral disc of cervical region (722.4) (M50.30) Degeneration of intervertebral disc of thoracic region (722.51) (M51.34) Degenerative arthritis of cervical spine (721.0) (M47.812) Encounter for immunization (V03.89) (Z23) Encounter for screening for other disorder (V82.89) (Z13.89) Fall at home (E888.9,E849.0) (W19.XXXA,Y92.009) Hypothyroidism (244.9) (E03.9) Insomnia (780.52) (G47.00) Joint pain in both hands (719.44) (M25.541,M25.542) Long-term use of high-risk medication (V58.69) (Z79.899) Lumbar spinal stenosis (724.02) (M48.061) Muscle spasm (728.85) (M62.838) Near syncope (780.2) (R55) Obesity (278.00) (E66.9) Opioid use (305.50) (F11.90) Osteoarthritis of lower leg, localized (715.36) (M17.10) Osteopenia (733.90) (M85.80) Pain of right hand (729.5) (M79.641) Postmenopausal (V49.81) (Z78.0) Trigger finger (727.03) (M65.30) Varicose vein of leg (454.9) (I83.90) 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) (I83.893) Varicose veins of bilateral lower extremities with pain (454.8) (I83.813) Wellness examination (V70.0) (Z00.00) Worst headache of life (784.0) (R51.9) Past Medical History History of chronic back pain (V13.59) (Z87.39) History of depression (V11.8) (Z86.59) History of hematuria (V13.09) (Z87.448) History of hydronephrosis (V13.09) (Z87.448) History of nausea and vomiting (V12.79) (Z87.898) Surgical History History of Breast reduction History of Carpal tunnel surgery History of Ganglion cyst excision History of Hysterectomy History of Pilonidal cyst removal History of Tonsillectomy with adenoidectomy History of Tubal ligation Family History Family history of cardiac disorder (V17.49) (Z82.49) Family history of cardiac disorder (V17.49) (Z82.49) Family history of cardiac disorder (V17.49) (Z82.49) Social History Consumes alcohol (V49.89) (Z72.89) Former smoker (V15.82) (Z87.891) Quit 50 yrs ago No recent domestic travel No recent foreign travel Occasional alcohol use Patient has living will (V49.89) (Z78.9) Travel to [place] Allergies Codeine Abdominal pain; Recorded By: Kim Dowd; 05/05/2019 2:08:23 PM Current Meds Medication NameInstructionReason Atenolol 25 MG Oral TabletTAKE 1 TABLET DAILY.Benign essential HTN Triam (more content not included)... Normal [email or web address] Tobacco Screening.on 022 Fall risk assessment a) No falls within the last year [facility] Work Phone: Tobacco use status [facility] b) No [facility] Work [facility]: Office Visit ([facility])on 11-06-2021 Follow-up visit Diagnoses/Problems Near syncope (780.2) (R55) Chief Complaint 2 week f/u. History of Present Illness h/o stress test about [address] Natasha fernández [place] was normal does HEP on back tramadol 1 bid no change in sob had 2 times with 1 to 2 mintues had to stop happened during dinner or house work pain in the center heavy ache no vomitting turned in holter monitor october 31 ups for 1 week will call with resutls of debbie if normal refer to cariology Active Problems Acute deep vein thrombosis (DVT) of popliteal vein of right lower extremity (453.41) (I82.431) Anxiety (300.00) (F41.9) Benign essential HTN (401.1) (I10) Bleeding from varicose vein (454.8) (I83.899) Bleeding from varicose vein (454.8) (I83.899) Breast cancer screening by mammogram (V76.12) (Z12.31) Chest pain (786.50) (R07.9) Chronic low back pain (724.2,338.29) (M54.50,G89.29) Chronic neck pain (723.1,338.29) (M54.2,G89.29) Chronic pain (338.29) (G89.29) Chronic use of benzodiazepine for therapeutic purpose (V58.69) (Z79.899) Chronic venous hypertension (idiopathic) with inflammation of bilateral lower extremity (459.32) (I87.323) Cough (786.2) (R05.9) Degeneration of intervertebral disc of cervical region (722.4) (M50.30) Degeneration of intervertebral disc of thoracic region (722.51) (M51.34) Degenerative arthritis of cervical spine (721.0) (M47.812) Encounter for immunization (V03.89) (Z23) Encounter for screening for other disorder (V82.89) (Z13.89) Fall at home (E888.9,E849.0) (W19.XXXA,Y92.009) Hypothyroidism (244.9) (E03.9) Insomnia (780.52) (G47.00) Joint pain in both hands (719.44) (M25.541,M25.542) Long-term use of high-risk medication (V58.69) (Z79.899) Lumbar spinal stenosis (724.02) (M48.061) Muscle spasm (728.85) (M62.838) Near syncope (780.2) (R55) Obesity (278.00) (E66.9) Opioid use (305.50) (F11.90) Osteoarthritis of lower leg, localized (715.36) (M17.10) Osteopenia (733.90) (M85.80) Pain of right hand (729.5) (M79.641) Postmenopausal (V49.81) (Z78.0) Trigger finger (727.03) (M65.30) Varicose vein of leg (454.9) (I83.90) 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) (I83.893) Varicose veins of bilateral lower extremities with pain (454.8) (I83.813) Wellness examination (V70.0) (Z00.00) Worst headache of life (784.0) (R51.9) Past Medical History History of chronic back pain (V13.59) (Z87.39) History of depression (V11.8) (Z86.59) History of hematuria (V13.09) (Z87.448) History of hydronephrosis (V13.09) (Z87.448) History of nausea and vomiting (V12.79) (Z87.898) Surgical History History of Breast reduction History of Carpal tunnel surgery History of Ganglion cyst excision History of Hysterectomy History of Pilonidal cyst removal History of Tonsillectomy with adenoidectomy History of Tubal ligation Family History Family history of cardiac disorder (V17.49) (Z82.49) Family history of cardiac disorder (V17.49) (Z82.49) Family history of cardiac disorder (V17.49) (Z82.49) Social History Consumes alcohol (V49.89) (Z72.89) Former smoker (V15.82) (Z87.891) Quit 50 yrs ago No recent domestic travel No recent foreign travel Occasional alcohol use Patient has living will (V49.89) (Z78.9) Travel to [place] Allergies Codeine Abdominal pain; Recorded By: Kim Dowd; 05/05/2019 2:08:23 PM Current Meds Medication NameInstructionReason Atenolol 25 MG Oral TabletTAKE 1 TABLET DAILY.Benign essential HTN Triamterene-HCTZ 75-50 MG Oral TabletTAKE 1 TABLET DAILY.Benign essential HTN traMADol HCl - 50 MG Oral TabletTake 1 tablet in the morning and night; 2 tablets afternoon per day as needed.Chronic low back pain, Chronic neck pain, Chronic pain, Degeneration of intervertebral disc of cervical region, Degeneration of intervertebral disc of thoracic region, Degenerative arthritis of cervical spine, Opioid use Levothyroxine Sodium 100 MCG Oral TabletTake 1 tablet dailyHypothyroidism traZODone HCl - 50 MG Oral TabletTAKE 1 TABLET AT BEDTIME.Insomnia tiZANidine HCl - 2 MG Oral TabletTAKE 1 TABLET Every 8 hours PRN muscle spasm. Do not drive or drink alcohol while on med.Muscle spasm Meloxicam 15 MG Oral TabletTAKE 1 TABLET DAILY NEEDED. Vitals Vital Signs Recorded: [id number] 03:20PM Heart Rate71 Mhavxfqq880 Ywknzhpst53 Tuvrhk720.4 cm Ivbqpm22.45 kg BMI Upewjdimgs11.32 kg/m2 BSA Calculated1.6 Physical Exam General: Alert and oriented, No acute distress. Neck: Supple, Non-tender, No lymphadenopathy, No thyromegaly. Respiratory: Lungs are clear to auscultation, Respirations are non-labored, Breath sounds are equal, Symmetrical chest wall expansion. Cardiovascular: Normal rate, Regular rhythm, No murmur. Normal gait. Neurologic: Alert, Oriented, No focal deficits. Cognition and Speech: Oriented, Speech clear and coherent, Functional cognition intact. Psychiatric: Cooperative, Appropriate m (more content not included)... Normal [employer] SM Jt Injection/Arthrocentes is: R thumb MCPon 10-19-2021 Amanda Marcelino CNP 10/19/2021 3:56 PM SM Jt Injection/Arthrocentesis: R thumb MCP Performed by: Amanda Marcelino CNP Authorized by: Amanda Marcelino CNP CPT 47196 - Small Joint Arthrocentesis: Consent given by: Patient Time out: Immediately prior to the procedure a time out was called Physician or proceduralist has discussed critical or nonroutine steps, procedure duration and anticipated blood loss: Yes Supporting Documentation: Indications: Pain, joint swelling and diagnostic evaluation Procedure Details: Location: Thumb Site: R thumb MCP Prep: patient was prepped and draped in usual sterile fashion Needle size: 25 G Approach: Dorsal Medications: 40 mg triamcinolone acetonide 40 mg/mL Anesthetic used:: Lidocaine 1% Anesthetic amount (mL): 1 Patient tolerance: Patient tolerated the procedure well with no immediate complications [facility] Panel Informationon 10-18 Please click on the link to view the study images Normal [facility] Work Phone: Normal [facility] Work Phone[facility] Follow-up visit Diagnoses/Problems Chest pain (786.50) (R07.9) Near syncope (780.2) (R55) Orders Chest pain IO EKG Electrocardiogram- 12 Lead; Status:Active - Perform Order; Requested for:18Oct2021; Xray Chest 2 View PA + Lateral; Status:Hold For - Scheduling; Requested for:18Oct2021; Radiologist to Determine Optimal Study : Y What are the patient's signs and symptoms? : chest pain Near syncope Holter Monitor 3-14 Days; Status:Hold For - Scheduling; Requested for:18Oct2021; Follow-up visit in 2 weeks Outpatient Follow-up Status: Hold For - Scheduling Requested for: 18Oct2021 Provider Impressions EKG today sinus rhythm has poor R wave progression V2 is a little more pronounced than in 2020. Patient had echocardiogram March 2016 with normal LV function mild left atrial enlargement moderate mitral annular calcification. Patient also had a Holter monitor 30 days that showed normal sinus rhythm with short bursts of atrial fibrillation 24 bursts only. Patient had a stress test nuclear medicine myocardial perfusion SPECT scan 2017 heart rate response was normal. Patient had no chest pain cardiac perfusion was normal under post-rest conditions. We will repeat a 7-day Bartie to see whether or not she is going into more prolonged atrial fibrillation chest x-ray. If all tests are normal will consider a standard stress test versus cardiac consultation. Chief Complaint pt c/o dizziness. History of Present Illness cannot feel like getting one leg in front of the other after standing x 2 months some vertigo with rolling in bed feels like passing out deep breath radiate from left chest to shoulder for a 1 minute or 2 stabbing pt has increased fluid had labs and xray " funny" = today had xray fo back dr [place] has epidural h/o hyponatremia h/o stress test about [address] Kaur [facility] was normal does HEP on back states very busy tramadol 1 bid last hosp was 5 yeasr ago for urosepsis fxh borther x 3 and father and sister all had [place] ros no sob at rest has sob with exertion about the same no palptition no cough smoker in 'S no fevers no chills no abd pain 4 day woke up vomitting all day friday Active Problems Acute deep vein thrombosis (DVT) of popliteal vein of right lower extremity (453.41) (I82.431) Anxiety (300.00) (F41.9) Benign essential HTN (401.1) (I10) Bleeding from varicose vein (454.8) (I83.899) Bleeding from varicose vein (454.8) (I83.899) Breast cancer screening by mammogram (V76.12) (Z12.31) Chronic low back pain (724.2,338.29) (M54.50,G89.29) Chronic neck pain (723.1,338.29) (M54.2,G89.29) Chronic pain (338.29) (G89.29) Chronic use of benzodiazepine for therapeutic purpose (V58.69) (Z79.899) Chronic venous hypertension (idiopathic) with inflammation of bilateral lower extremity (459.32) (I87.323) Cough (786.2) (R05.9) Degeneration of intervertebral disc of cervical region (722.4) (M50.30) Degeneration of intervertebral disc of thoracic region (722.51) (M51.34) Degenerative arthritis of cervical spine (721.0) (M47.812) Encounter for immunization (V03.89) (Z23) Encounter for screening for other disorder (V82.89) (Z13.89) Fall at home (E888.9,E849.0) (W19.XXXA,Y92.009) Hypothyroidism (244.9) (E03.9) Insomnia (780.52) (G47.00) Joint pain in both hands (719.44) (M25.541,M25.542) Long-term use of high-risk medication (V58.69) (Z79.899) Lumbar spinal stenosis (724.02) (M48.061) Muscle spasm (728.85) (M62.838) Obesity (278.00) (E66.9) Opioid use (305.50) (F11.90) Osteoarthritis of lower leg, localized (715.36) (M17.10) Osteopenia (733.90) (M85.80) Pain of right hand (729.5) (M79.641) Postmenopausal (V49.81) (Z78.0) Trigger finger (727.03) (M65.30) Varicose vein of leg (454.9) (I83.90) 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) (I83.893) Varicose veins of bilateral lower extremities with pain (454.8) (I83.813) Wellness examination (V70.0) (Z00.00) Worst headache of life (784.0) (R51.9) Past Medical History History of chronic back pain (V13.59) (Z87.39) History of depression (V11.8) (Z86.59) History of hematuria (V13.09) (Z87.448) History of hydronephrosis (V13.09) (Z87.448) History of nausea and vomiting (V12.79) (Z87.898) Surgical History History of Breast reduction History of Carpal tunnel surgery History of Ganglion cyst excision History of Hysterectomy History of Pilonidal cyst removal History of Tonsillectomy with adenoidectomy History of Tubal ligation Family History Family history of cardiac disorder (V17.49) (Z82.49) Family history of cardiac disorder (V17.49) (Z82.49) Family history of cardiac disorder (V17.49) (Z82.49) Social History Consumes alcohol (V49.89) (Z72.89) Former smoker (V15.82) (Z87.891) Quit 50 yrs ago No recent domestic travel No recent foreign travel Occasional alcohol use Patient has living will (V49.89) (Z78.9) Travel to [place] [employer] (more content not included)... Normal [facility] Radiologyon 10-18-2021 XR Chest 2 Views Please click on the link to view the study images Normal [facility] Work Phone: XR Chest 2 Views Normal [facility] Work Phone: TSH - Thyroid Stimulating Ho rmone, Serumon 10-18-2021 TSH Qn 2.00 m[IU]/L See Below [facility] Work Phone: Comment on above: Reference Range: 0.4 4 - 3.98 TSH testing is performed using different testing methodology at [facility] than at other [facility]. Direct result comparisons should only be made within the same method. Office Visit ([facility]on 10-02-2021 Follow-up visit Orders Benign essential HTN Renew: Atenolol 25 MG Oral Tablet; TAKE 1 TABLET DAILY Hypothyroidism TSH - Thyroid Stimulating Hormone, Serum; Status:Active; Requested for:02Oct2021; Chief Complaint 3 month ov, R hand joint pain x3 months, R shoulder pain x8 months. History of Present Illness Patient continues to have her hand pain. Was seen in Ortho and was provided steroid injections. Reports that her pain continues to worsen. She has an appointment with Ortho this afternoon. She will discuss further case with them. Right shoulder pain started about 3 months ago when she is trying to reach something in the back. Since then her pain has slowly been worsening. Hard to reach out to things. Will discuss with Ortho. Left foot pain from callus. Was seen by podiatry. Planning to do a procedure soon. Anxiety: Stable under control takes medication regularly. HTN: Patient reports that she takes medications regularly.Blood pressure is elevated today. Denies any symptoms of chest pain, palpitations or shortness of breath. Pain controlled with tramadol. Follow up in 3 months. Discontinuing Lorazepam and initiating Tramadol higher dose for pain control. I have personally reviewed the OARRS report for CHRISTINE MAYS. I have considered the risks of abuse, dependence, addiction and diversion. I have the following concerns: no. Is the patient prescribed a combination of a benzodiazepine and opioid? Yes. Uses meds on an as needed basis. Does not take them at the same time. Opioid is for her chronic pain and benzo is for her anxiety. Risks, benefits and alternatives have been discussed w/ pt - pt ok w/ current meds she is on, as her chronic pain and anxiety are controlled. Rx for narcan has been sent to pharm - pt counseled on how to use and when to use it Last urine drug screening date/ordered today: 06/18/21 Results of last screen: Results as expected. Date of the last Controlled Substance Agreement: 06/18/21 OPIOID What is the patient?s goal of therapy? back pain control. Is this being achieved with current treatment? yes. Attestation statement: I feel that it is clinically indicated to continue this current medication regimen after consideration of alternative therapies, and other non-opioid treatments. Opioid Risk Screening: Opioid Risk Tool Last opioid risk screening date/ordered today: 10/02/2021 Family history of substance abuse: Alcohol = 1 Patient's total score is 1, within range of Low Risk (<= 3). Pain Scale Screening: Pain Assessment and Documentation Tool (PADT) Date of Assessment: 10/02/2021 Analgesia: Patient reports her pain level on average during the past week is 6 on a 0 - 10 scale. Patient reports that her pain level at its worst during the past week was 9 on a 0 -10 scale. 50% % of pain has been relieved during the past week per patient Patient states that the amount of pain relief she is now obtaining from her current pain reliever(s) is enough to make a real difference in her life. Query to clinician: Is the patient's pain relief clinically significant? Yes Activities of Daily Living: Physical functioning: Worse Family relationships: Same Social relationships: Same Mood: Same Sleep patterns: Same Overall functioning: Same Adverse Events: No, CHRISTINE MAYS is not experiencing side effects from current pain reliever. Patients overall severity of side effect: None Is your overall impression that this patient is benefiting (e.g., benefits, such as pain relief, outweigh side effects) from opioid therapy? Yes. I have calculated the patient's Morphine Dose Equivalent (MED): I have considered referral to Pain Management and/or a specialist, and do not feel it is necessary at this time. BENZODIAZEPINES What is the patient?s goal of therapy? control anxiety. Review of Systems ROS negative except discussed above in HPI. Active Problems Acute deep vein thrombosis (DVT) of popliteal vein of right lower extremity (453.41) (I82.431) Anxiety (300.00) (F41.9) Benign essential HTN (401.1) (I10) Bleeding from varicose vein (454.8) (I83.899) Bleeding from varicose vein (454.8) (I83.899) Breast cancer screening by mammogram (V76.12) (Z12.31) Chronic low back pain (724.2,338.29) (M54.50,G89.29) Chronic neck pain (723.1,338.29) (M54.2,G89.29) Chronic pain (338.29) (G89.29) Chronic use of benzodiazepine for therapeutic purpose (V58.69) (Z79.899) Chronic venous hypertension (idiopathic) with inflammation of bilateral lower extremity (459.32) (I87.323) Cough (786.2) (R05.9) Degeneration of intervertebral disc of cervical region (722.4) (M50.30) Degeneration of intervertebral disc of thoracic region (722.51) (M51.34) Degenerative arthritis of cervical spine (721.0) (M47.812) Encounter for immunization (V03.89) (Z23) Encounter for screening for other disorder (V82.89) (Z13.89) Fall at home (E888.9,E849.0) (W19.XXXA,Y92.009) Hypothyroidism (244.9) (E03.9) Insomnia (780.5 (more content not included)... Normal [employer] Tobacco Screening.on 022 Fall risk assessment a) No falls within the last year [facility] Work Phone: Tobacco use status CPHS b) No [facility] Work Phone: SM Jt Injection/Arthrocentes is: R thumb MCPon 07-16-2021 Amanda Marcelino CNP 07/16/2021 8:11 PM SM Jt Injection/Arthrocentesis: R thumb MCP Performed by: Amanda Marcelino CNP Authorized by: Amanda Marcelino CNP CPT 24765 - Small Joint Arthrocentesis: Consent given by: Patient Time out: Immediately prior to the procedure a time out was called Physician or proceduralist has discussed critical or nonroutine steps, procedure duration and anticipated blood loss: Yes Supporting Documentation: Indications: Pain, joint swelling and diagnostic evaluation Procedure Details: Location: Thumb Site: R thumb MCP Prep: patient was prepped and draped in usual sterile fashion Needle size: 25 G Approach: Dorsal Medications: 10 mg triamcinolone acetonide 10 mg/mL Anesthetic used:: Lidocaine 1% Anesthetic amount (mL): 1 Patient tolerance: Patient tolerated the procedure well with no immediate complications [facility] Laboratory - Chemistry and C hemistry - challengeon 06-18-2021 Creatinine (Body fld) [Mass/Vol] 34.2 mg/dL [facility] Work Phone: Comment on above: A urine creatinine r esult >= 20 mg/dL is considered valid without suspicion of dilution. Samples with results below this range will automatically reflex to specific gravity testing to verify specimen integrity. Laboratory - Drug toxicology on 11-29-2021 1-Hydroxymidazolam Confirm (U) [Mass/Vol] <25 Cutoff <25 [facility] Work Phone: 8-Putynleixy-7,5-Di methyl-3,3-Diphenyl pyrrolidine (EDDP) Confirm (U) [Mass/Vol] <25 Cutoff <25 [facility] Work Phone: Comment on above: The performance rose marie acteristics of the Methadone Confirmation, Urine has been validated by the individual laboratory site where testing is performed. It has not been cleared or approved by the FDA. However the FDA has determined that such clearance or approval is not necessary. Our Laboratory is certified under the Clinical Laboratory Improvement Amendments of 1988 (CLIA) as qualified to perform high complexity clinical laboratory testing. 6-Monoacetylmorphin e (6-RITA) Confirm (U) [Mass/Vol] <25 Cutoff <25 [facility] Work Phone: 7-Aminoclonazepam Confirm (U) [Mass/Vol] <25 Cutoff <25 [facility] Work Phone: Alpha hydroxyalprazolam Confirm (U) [Mass/Vol] <25 Cutoff <25 [facility] Work Phone: ALPRAZolam Confirm (U) [Mass/Vol] <25 Cutoff <25 [facility] Work Phone: Amphetamines Screen Ql (U) Negative NEGATIVE [facility] Work Phone: Comment on above: CUTOFF LEVEL: 500 NG /ML Cross-reactivity has been reported with high concentrations of the following drugs: buproprion, chloroquine, chlorpromazine, ephedrine, mephentermine, fenfluramine, phentermine, phenylpropanolamine, pseudoephedrine, and propranolol. Barbiturates Screen Ql (U) Negative NEGATIVE [facility] Work Phone: Comment on above: CUTOFF LEVEL: 200 NG /ML Benzoylecgonine Screen Ql (U) Negative NEGATIVE [facility] Work Phone: Comment on above: CUTOFF LEVEL: 150 NG /ML Cannabinoids Screen Ql (U) Negative NEGATIVE [facility] Work Phone: Comment on above: CUTOFF LEVEL: 50 NG/ ML chlordiazePOXIDE Confirm (U) [Mass/Vol] <25 Cutoff <25 [facility] Work Phone: clonazePAM Confirm (U) [Mass/Vol] <25 Cutoff <25 -[facility] Work Phone: Codeine Confirm (U) [Mass/Vol] <50 Cutoff <50 -[facility] Work Phone: diazePAM Confirm (U) [Mass/Vol] <25 Cutoff <25 -[facility] Work Phone: fentaNYL Confirm (U) [Mass/Vol] <2.5 Cutoff<2.5 [facility] Work Phone: HYDROcodone Confirm (U) [Mass/Vol] <25 Cutoff <25 [facility] Work Phone: HYDROmorphone Confirm (U) [Mass/Vol] <25 Cutoff <25 [facility] Work Phone: LORazepam Confirm (U) [Mass/Vol] 148 ng/mL Abnormal Cutoff <25 [facility] Work Phone: Comment on above: Consistent with use of a drug containing lorazepam, such as Ativan. Methadone Confirm (U) [Mass/Vol] <25 Cutoff <25 [facility] Work Phone: Midazolam Confirm (U) [Mass/Vol] <25 Cutoff <25 [facility] Work Phone: Morphine Confirm (U) [Mass/Vol] <50 Cutoff <50 -[facility] Work Phone: Nordiazepam Confirm (U) [Mass/Vol] <25 Cutoff <25 [facility] Work Phone: Norfentanyl Confirm (U) [Mass/Vol] <2.5 Cutoff<2.5 [facility] Work Phone: Comment on above: The performance rose marie acteristics of the Fentanyl Confirmation, Urine has been validated by the individual laboratory site where testing is performed. It has not been cleared or approved by the FDA. However the FDA has determined that such clearance or approval is not necessary. Our Laboratory is certified under the Clinical Laboratory Improvement Amendments of 1988 (CLIA) as qualified to perform high complexity clinical laboratory testing. Norhydrocodone Confirm (U) [Mass/Vol] <25 Cutoff <25 [facility] Work Phone: Noroxycodone Confirm (U) [Mass/Vol] <25 Cutoff <25 [facility] Work Phone: Nortramadol (U) [Mass/Vol] 824 ng/mL Abnormal Cutoff <50 [facility] Work Phone: Comment on above: Tramadol metabolite; consistent with use of a drug containing tramadol, such as Ultram. The performance characteristics of the Tramadol Confirmation, Urine has been validated by the individual laboratory site where testing is performed. It has not been cleared or approved by the FDA. However the FDA has determined that such clearance or approval is not necessary. Our Laboratory is certified under the Clinical Laboratory Improvement Amendments of 1988 (CLIA) as qualified to perform high complexity clinical laboratory testing. Oxazepam Confirm (U) [Mass/Vol] <25 Cutoff <25 [facility] Work Phone: oxyCODONE Confirm (U) [Mass/Vol] <25 Cutoff <25 [facility] Work Phone: oxyMORphone Confirm (U) [Mass/Vol] <25 Cutoff <25 [facility] Work Phone: Comment on above: The performance rose marie acteristics of the Opiate Confirmation, Urine has been validated by the individual laboratory site where testing is performed. It has not been cleared or approved by the FDA. However the FDA has determined that such clearance or approval is not necessary. Our Laboratory is certified under the Clinical Laboratory Improvement Amendments of 1988 (CLIA) as qualified to perform high complexity clinical laboratory testing. Phencyclidine Ql (U) Negative NEGATIVE [facility] Work Phone: Comment on above: CUTOFF LEVEL: 25 NG/ ML Cross-reactivity has been reported with dextromethorphan. Temazepam Confirm (U) [Mass/Vol] <25 Cutoff <25 [facility] Work Phone: Comment on above: The performance rose marie acteristics of the Benzodiazepine Confirmation, Urine has been validated by the individual laboratory site where testing is performed. It has not been cleared or approved by the FDA. However the FDA has determined that such clearance or approval is not necessary. Our Laboratory is certified under the Clinical Laboratory Improvement Amendments of 1988 (CLIA) as qualified to perform high complexity clinical laboratory testing. traMADol Confirm (U) [Mass/Vol] 164 ng/mL Abnormal Cutoff <50 -[facility] Work Phone: Comment on above: Consistent with use of a drug containing tramadol, such as Ultram. Zolpidem (U) [Mass/Vol] <25 Cutoff <25 [facility] Work Phone: No Panel Informationon 06-18 SEE BELOW [facility] Work Phone: Comment on above: Drug screen results are presumptive and should not be used to assess compliance with prescribed medication. Definitive confirmatory drug testing has been added to this sample for any positive screen result and will be reported separately. .Toxicology screening results are reported qualitatively. The concentration must be greater than or equal to the cutoff to be reported as positive. The concentration at which the screening test can detect an individual drug or metabolite varies. The absence of expected drug(s) and/or drug metabolite(s) may indicate non-compliance, inappropriate timing of specimen collection relative to drug administration, poor drug absorption, diluted/adulterated urine, or limitations of testing. For medical purposes only; not valid for forensic use. .Interpretive questions should be directed to the laboratory medical directors. <25 Cutoff <25 [facility] Work Phone: Comment on above: The performance rose marie acteristics of the Zolpidem Confirmation, Urine has been validated by the individual laboratory site where testing is performed. It has not been cleared or approved by the FDA. However the FDA has determined that such clearance or approval is not necessary. Our Laboratory is certified under the Clinical Laboratory Improvement Amendments of 1988 (CLIA) as qualified to perform high complexity clinical laboratory testing. Tobacco Screening.on Fall risk assessment a) No falls within the last year [facility] Work Phone: Tobacco use status CPHS b) No [facility] Work Phone: Falls Risk Screeningon 04-26 Fall risk assessment a) No falls within the last year [facility] Work Phone: Tobacco use status CPHS b) No [facility] Work Phone: Tobacco Screening.on Fall risk assessment a) No falls within the last year [facility] Work Phone: Tobacco use status CPHS b) No [facility] Work Phone: Radiologyon 02-23-2021 XR Hand 2 Views Normal [facility] Work Phone: Tobacco Screening.on Fall risk assessment a) No falls within the last year [facility] Work Phone: Tobacco use status CPHS b) No [facility] Work Phone: No Panel Informationon 01-25 [facility] Work Phone: Tobacco Screening.on Fall risk assessment a) No falls within the last year [facility] Work Phone: Tobacco use status CPHS b) No [facility] Work Phone: Tobacco Screening. Adult [facility] Work Phone: Tobacco Screening.on Fall risk assessment a) No falls within the last year [facility] Work Phone: Tobacco use status CPHS b) No [facility] Work Phone: Tobacco Screening.on 021 Fall risk assessment a) No falls within the last year [facility] Work Phone: Tobacco use status CPHS b) No [facility] Work Phone: Otheron 08-07-2020 XR Chest 2 views Interpreted by: MAUREEN MESA08/08/20 16:42MRN: [id number] Name: CHRISTINE MAYS STUDY:TH CHEST 2 VIEW PA AND LAT INDICATION:cough with chest tightness and phlegm.. COMPARISON:January 03, 2018 ORDERING CLINICIAN:JAMIN RICKETTS FINDINGS:Cardiomegaly with atherosclerotic aorta unchanged. Scoliosis againnoted. No consolidation, effusion, edema, or pneumothorax. IMPRESSION:No evidence of acute intrathoracic abnormality.Electronically signed by: DANIELLE MESA 08/08/20 16:42 Normal [facility] Work Phone: C Urineon 04-24-2019 C Urine Final Report: Rare N ormal skin eddie isolated Normal [facility] Comment on above: Performed By: #### 1 [id number] #### [place] [address] XR Sacroiliac Joints Minimum 3 Viewson 04-23-2019 XR Sacroiliac Joints Minimum 3 Views Exam Date/Time: 04/22/2019 10:18 EDT Reason for Exam: Pain, Traumatic Report STUDY: XR Sacroiliac Joints Minimum 3 Views; 04/22/2019 10:18 am INDICATION: Pain, Traumatic. COMPARISON: None. ACCESSION NUMBER(S): [id number] ORDERING CLINICIAN: Tr Drummond FINDINGS: 5 views of the sacroiliac joints including AP and bilateral oblique views were obtained. There is no radiographic evidence of acute, displaced, fracture or subluxation identified. Mild-to- moderate hypertrophic degenerative changes are seen in the sacroiliac joints and pubic symphysis. Mild joint space narrowing and small marginal osteophytes are seen in the hips bilaterally. A curvilinear metallic density is seen over the central pelvis and may represent a foreign body. IMPRESSION: 1. No displaced fracture or subluxation. 2. Degenerative changes, as described above. FINAL REPORT Dictated: 04/23/2019 1:07 pm Oni Saavedra MD Signed (Electronic Signature): 04/23/2019 1:07 pm Signed by: Oni Saavedra MD Technologist: TRD Normal [facility] Auto Diffon 04-22-2019 Basophils (Bld) [#/Vol] 0.0 E3/mcL Normal 0.0-0.2 [facility] Comment on above: Order Comment: Order Added by Discern Expert. Performed By: #### 2 [id number] #### ISABEL RemHemo [facility] [place] [address] Basophils/100 WBC (Bld) 0.4 % Normal 0.0-2.0 [facility] Comment on above: Order Comment: Order Added by Discern Expert. Performed By: #### 2 [id number] #### ISABEL RemHemo [address] [place] [address] Eos Absolute 0.1 E3/mcL Normal 0.0-0.7 [facility] Comment on above: Order Comment: Order Added by Discern Expert. Performed By: #### 2 [id number] #### ISABEL BhatiaHemo [address] [place] [address] Eosinophils/100 WBC (Bld) 1.4 % Normal 0.0-11.0 [facility] Comment on above: Order Comment: Order Added by Discern Expert. Performed By: #### 2 [id number] #### ISABEL RemHemo [address] [place] [address] Lymphocytes (Bld) [#/Vol] 2.0 E3/mcL Normal 1.2-3.4 [facility] Comment on above: Order Comment: Order Added by Discern Expert. Performed By: #### 2 [id number] #### ISABEL RemHemo [facility] [place] [address] Lymphocytes/100 WBC (Bld) 25.1 % Normal 20.0-55.0 [facility] Comment on above: Order Comment: Order Added by Discern Expert. Performed By: #### 2 [id number] #### ISABEL BhatiaHemo [address] [place] [address] [place] Absolute 0.7 E3/mcL Normal 0.0-0.7 [facility] Comment on above: Order Comment: Order Added by Discern Expert. Performed By: #### 2 [id number] #### ISABEL BhatiaHemo [address] [place] [address] Monocytes/100 WBC (Bld) 8.8 % Normal 0.0-10.0 [facility] Comment on above: Order Comment: Order Added by Discern Expert. Performed By: #### 2 [id number] #### ISABEL BhatiaHemo [address] [place] [address] Neutro Absolute 5.1 E3/mcL Normal 1.4-6.5 [facility] Comment on above: Order Comment: Order Added by Discern Expert. Performed By: #### 2 [id number] #### ISABEL RemHemo [address] [place] [address] Neutro Auto 64.3 % Normal 37.0-75.0 [facility] Comment on above: Order Comment: Order Added by Discern Expert. Performed By: #### 2 [id number] #### ISABEL BhatiaHemo [address] [place] [address] CBC w/ Auto Diffon 9 Erythrocyte distribution width (RBC) [Ratio] 13.3 % Normal 11.5-14.5 [facility] Comment on above: Performed By: #### 2 [id number] #### ISABEL BhatiaHemo [address] [place] [address] Hematocrit (Bld) [Volume fraction] 39.1 % Normal 36.0-48.0 [facility] Comment on above: Performed By: #### 2 [id number] #### ISABEL BhatiaHemo [address] [place] [address] Hemoglobin (Bld) [Mass/Vol] 13.2 g/dL Normal 12.0-16.0 [facility] Comment on above: Performed By: #### 2 [id number] #### ISABEL RemHemo [address] [place] [address] MCH (RBC) [Entitic mass] 32.1 pg High 27.0-31.0 [facility] Comment on above: Performed By: #### 2 [id number] #### ISABEL RemHemo [address] [place] [address] MCHC (RBC) [Mass/Vol] 33.9 g/dL Normal 33.0-37.0 [facility] Comment on above: Performed By: #### 2 [id number] #### ISABEL RemHemo [address] [place] [address] MCV (RBC) [Entitic vol] 95.0 fL Normal 78.0-100.0 [facility] Comment on above: Performed By: #### 2 [id number] #### ISABEL RemHemo [address] [place] [address] Platelet mean volume (Bld) [Entitic vol] 7.2 fL Low 7.4-11.0 [facility] Comment on above: Performed By: #### 2 [id number] #### ISABEL RemHemo [address] [place] [address] Platelets (Bld) [#/Vol] 312 E3/mcL Normal 130-400 [facility] Comment on above: Performed By: #### 2 [id number] #### ISABEL RemHemo [address] [place] [address] RBC (Bld) [#/Vol] 4.11 E6/mcL Normal 3.90-5.40 [facility] Comment on above: Performed By: #### 2 [id number] #### ISABEL RemHemo [address] [place] [address] WBC (Bld) [#/Vol] 8.0 E3/mcL Normal 3.6-11.0 [facility] Comment on above: Performed By: #### 2 [id number] #### ISABEL RemHemo [address] [place] [address] CMPon 04-22-2019 Albumin [Mass/Vol] 4.0 g/dL Normal 3.4-5.0 [facility] Comment on above: Performed By: #### 2 [id number] #### ISABEL [employer] [address] [place] [address] Albumin/Globulin [Mass ratio] 1.8 {ratio} Normal 1.1-1.9 [facility] Comment on above: Performed By: #### 2 [id number] #### ISABEL [employer] [address] [place] [address] Alk Phos 51 Int._Unit/L Normal 33-136 [facility] Comment on above: Performed By: #### 2 [id number] #### ISABEL [employer] [address] [place] [address] ALT [Catalytic activity/Vol] 9 Int._Unit/L Normal 7-45 [facility] Comment on above: Performed By: #### 2 [id number] #### ISABEL [employer] [address] [place] [address] Anion gap [Moles/Vol] 9 mmol/L Low 10-20 [facility] Comment on above: Performed By: #### 2 [id number] #### [facility] [employer] [address] [place] [address]105 AST [Catalytic activity/Vol] 15 Int._Unit/L Normal 9-39 [facility] Comment on above: Performed By: #### 2 [id number] #### ISABEL [employer] [address] [place] [address] Bili Total 0.43 mg/dL Normal 0.00-1.20 [facility] Comment on above: Performed By: #### 2 [id number] #### ISABEL [employer] [address] [place] [address] Calcium [Mass/Vol] 9.3 mg/dL Normal 8.6-10.3 [facility] Comment on above: Performed By: #### 2 [id number] #### ISABEL [employer] [address] [place] [address] Chloride [Moles/Vol] 98 mmol/L Normal 98-107 [facility] Comment on above: Performed By: #### 2 [id number] #### ISABEL [employer] [address] [place] [address] CO2 [Moles/Vol] 31.0 mmol/L Normal 21.0-32.0 [facility] Comment on above: Performed By: #### 2 [id number] #### ISABEL [employer] [address] [place] [address] Creatinine [Mass/Vol] 0.7 mg/dL Normal 0.5-1.1 [facility] Comment on above: Performed By: #### 2 [id number] #### ISABEL [employer] [address] [place] [address] Globulin (S) [Mass/Vol] 2.0 g/dL Normal 2.0-4.0 [facility] Comment on above: Performed By: #### 2 [id number] #### ISABEL [employer] [address] [place] [address] Glucose [Mass/Vol] 101 mg/dL High 70-99 [facility] Comment on above: Performed By: #### 2 [id number] #### ISABEL [employer] [address] [place] [address] Potassium [Moles/Vol] 3.8 mmol/L Normal 3.5-5.3 [facility] Comment on above: Performed By: #### 2 [id number] #### ISABEL [employer] [address] [place] [address] Protein [Mass/Vol] 6.2 g/dL Low 6.4-8.2 [facility] Comment on above: Performed By: #### 2 [id number] #### ISABEL [employer] [address] [place] [address] Sodium [Moles/Vol] 134 mmol/L Low 136-145 [facility] Comment on above: Performed By: #### 2 [id number] #### ISABEL [employer] [address] [place] [address] 78[address] Urea nitrogen [Mass/Vol] 20 mg/dL Normal 6-23 [facility] Comment on above: Performed By: #### 2 [id number] #### ISABEL [employer] [address] [place] [address] Urea nitrogen/Creatinine [Mass ratio] 28.6 ratio Normal 5.4-30.0 [facility] Comment on above: Performed By: #### 2 [id number] #### ISABEL [employer] [address] [place] [address] Free T3on 04-22-2019 Free T3 [Mass/Vol] 2.2 pg/mL Low 2.5-3.9 [facility] Comment on above: Performed By: #### 1 [id number] #### ISABEL [employer] [address] [place] [address] Free T4on 04-22-2019 Free T4 [Mass/Vol] 1.34 ng/dL Normal 0.58-1.64 [facility] Comment on above: Performed By: #### 2 660805 #### ISABEL [employer] [address] [place] [address] Lipid Profileon 04-22-2019 Cholesterol [Mass/Vol] 171 mg/dL Normal 0-199 [facility] Comment on above: Result Comment: TOTA L CHOLEESTEROL: <200 NORMAL 200 - 239 BORDERLINE HIGH >240 HIGH Performed By: #### 3 [id number] #### ISABEL [employer] [address] [place] [address] Cholesterol in HDL [Mass/Vol] 53 mg/dL Normal 40-60 [facility] Comment on above: Performed By: #### 3 [id number] #### ISABEL [employer] [address] [place] [address]02 Cholesterol in LDL [Mass/Vol] 99 mg/dL Normal 0-130 [facility] Comment on above: Result Comment: <100 OPTIMAL 100-129 NEAR / ABOVE OPTIMAL 130-159 BORDERLINE HIGH 160-189 HIGH >190 VERY HIGH CALC LDL NOT VALID WHEN TRIGLYCERIDE IS >400 MG/DL Performed By: #### 3 [id number] #### ISABEL [employer] [address] [place] [address] Cholesterol in VLDL [Mass/Vol] 19 mg/dL Normal 0-40 [facility] Comment on above: Performed By: #### 3 [id number] #### ISABEL [employer] [address] [place] [address] Triglyceride [Mass/Vol] 93 mg/dL Normal 0-149 [facility] Comment on above: Result Comment: AGE DESIRABLE BORDERLINE HIGH 91 D - 9 Y 0 - 74 75 - 99 > 100 10 - 19 Y 0 - 89 90 - 129 > 130 20 -24 Y 0 - 114 115 - 149 > 150 > 25 0 - 149 150 - 199 200 - 499 Performed By: #### 3 [id number] #### ISABEL [employer] [address] [place] [address] TSHon 04-22-2019 TSH Qn 0.13 mcIU/mL Low 0.30-5.60 [facility] Comment on above: Performed By: #### 2 [id number] #### ISABEL [employer] [address] [place] [address] UA Completeon 04-22-2019 Color (U) Straw Normal Yellow [facility] Comment on above: Performed By: #### 1 [id number] #### ISABEL Jann[employer] [facility] [place] [address] Glucose (U) [Mass/Vol] Negative Normal Negative [facility] Comment on above: Performed By: #### 1 [id number] #### ISABEL [employer] [address] [place] [address] Ketones Ql (U) Negative Normal Negative [facility] Comment on above: Performed By: #### 1 [id number] #### ISABEL Bhat[employer] [facility] [place] [address] UA Blood Negative Normal Negative [facility] Comment on above: Performed By: #### 1 [id number] #### ISABEL [employer] [address] [place] [address] UA Clarity Clear Normal Clear [facility] Comment on above: Performed By: #### 1 [id number] #### ISABEL [employer] [address] [place] [address] UA Leuk Est Negative Normal Negative [facility] Comment on above: Performed By: #### 1 [id number] #### ISABEL [employer] [address] [place] [address] UA Nitrite Negative Normal Negative [facility] Comment on above: Performed By: #### 1 [id number] #### ISABEL [employer] [address] [place] [address] UA pH 7.0 Normal 4.6-8.0 [facility] Comment on above: Performed By: #### 1 [id number] #### ISABEL [employer] [address] [place] [address] UA Protein Negative Normal Negative [facility] Comment on above: Performed By: #### 1 [id number] #### ISABEL [employer] [address] [place] [address] UA Spec Grav 1.009 Normal 1.003-1.030 [facility] Comment on above: Performed By: #### 1 [id number] #### ISABEL [employer] [address] [place] [address] UA Urobilinogen Negative Normal [facility] Comment on above: Result Comment: Due to a manufacturing issue, low positive urobilinogen results may be fasely positive. Correlate with urine bilirubin and additional clinical/laboratory findings to assess the risk of hemolytic anemia or liver disease. If clinically indicated, repeat testing with an alternate method is available by contacting the laboratory within 24 hours. Performed By: #### 1 [id number] #### ISABEL [employer] [address] [place] [address] UA WBC 0-5 Normal 0-5 [facility] Comment on above: Performed By: #### 1 [id number] #### ISABEL [employer] [facility] [place] [address] Urobilinogen Qn (U) Negative Normal Negative [facility] Comment on above: Performed By: #### 1 [id number] #### ISABEL [employer] [place] [address] eGFRon 04-22-2019 GFR/1.73 sq M predicted among non-blacks MDRD (S/P/Bld) [Vol rate/Area] mL/min/{1.73_m2} Normal [facility] Comment on above: Order Comment: Order added by Discern Expert. Performed By: #### 1 [id number] #### ISABEL [facility] [place] [address] US Thyroidon 01-29-2019 US Thyroid Exam Date/Time: 01/29/2019 14:59 EDT Reason for Exam: THYROID NODULE;Other (please specify) Report STUDY: US Thyroid; 01/29/2019 2:59 pm INDICATION: Other (please specify). Thyroid nodule, follow-up COMPARISON: 01/29/2018 and 04/16/2017 ACCESSION NUMBER(S): [id number] ORDERING CLINICIAN: Andrew Pitts TECHNIQUE: Grayscale and color Doppler ultrasound of the thyroid. FINDINGS: Heterogenous hypoechoic thyroid gland. Spongiform nodule lower pole left lobe measuring 7 mm today, stable since March 2017. Another such finding anterior mid left lobe measuring 3 mm today also stable. RIGHT LOBE: 4.1 x 1.2 x 1.4 cm LEFT LOBE: 3.7 x 0.9 x 1.4 cm ISTHMUS: 0.2 cm IMPRESSION: Stable thyroid goiter dating back to March 2017. No suspicious nodules are demonstrated. FINAL REPORT Dictated: 01/29/2019 3:31 pm Danielle Miranda MD Signed (Electronic Signature): 01/29/2019 3:31 pm Signed by: Danielle Miranda MD Technologist: SHANE Normal [facility] MRI SPINE LUMBAR WITHOUT CON TRASTon 12-18-2018 MRI SPINE LUMBAR WITHOUT CONTRAST MRI OF THE LUMBAR SPINE WITHOUT CONTRAST, 12/18/2018. COMPARISON: Lumbar spine x-rays from 09/30/2017. HISTORY: Chronic low back pain which radiates into the mid back. Pseudoclaudication syndrome. TECHNIQUE: Sagittal T1, T2 and STIR images were obtained along with axial T1 and T2 images without contrast. FINDINGS: There is mild curvature of the thoracolumbar junction convex to the left and mild curvature of the lower lumbar spine convex to the right. There is grade 1 anterolisthesis of L4 on L5 measuring 8 mm. Moderate to severe degenerative disc disease is present at L4-L5 and L5-S1 with disc height loss and endplate spurring. There is a mild chronic superior endplate compression deformity at L2. No acute fracture is identified in the lumbar spine. There is disc desiccation throughout the lumbar spine. No acute abnormality is identified involving visualized intrapelvic or intra-abdominal structures. The visualized aorta is normal in diameter. The upper sacrum is intact. No pars defects are identified. The conus demonstrates normal signal intensity terminating at the T12-L1 level. L5-S1: There is a 4 mm broad-based disc protrusion with associated endplate spurring and moderate facet arthropathy. There is mild left foraminal narrowing without central stenosis. L4-L5: Anterolisthesis of L4 on L5 measures 8 mm with severe associated facet arthropathy. There is a diffuse disc bulge with a superimposed left foraminal disc protrusion measuring 4 mm in AP dimension with superior migration of disc material. There is moderate left and mild right foraminal narrowing. Mild central narrowing is also present with the thecal sac measuring 9 mm in AP dimension. L3-L4: A broad-based disc protrusion measures up to 5 mm in AP dimension with moderate to severe facet arthropathy. Mild to moderate left and mild right foraminal narrowing is present without central stenosis. L2-L3: A 5 mm broad-based disc protrusion is asymmetric to the right with mild to moderate facet arthropathy. There is mild right foraminal narrowing without central stenosis. L1-L2: There is a 4 mm broad-based disc protrusion with endplate spurring and mild to moderate facet arthropathy. There is mild to moderate right foraminal narrowing without central stenosis. T12-L1: There is a 4 mm broad-based disc protrusion and mild to moderate facet arthropathy. There is no central stenosis. There is mild left foraminal narrowing. T11-T12: There is a 4 mm broad-based disc protrusion and mild to moderate facet arthropathy. Mild to moderate left and mild right foraminal narrowing is present. IMPRESSION: 1. There is mild central narrowing at L4-L5 related to grade 1 anterolisthesis, severe facet arthropathy, and endplate spurring. There is a left foraminal disc protrusion and moderate left foraminal narrowing with abutment of the left L4 nerve root. 2. Multilevel discogenic change and facet arthropathy otherwise as described above. There is no central stenosis otherwise. There is mild to moderate foraminal narrowing otherwise as described above. 3. There is a mild chronic superior endplate compression deformity at L2. No acute fracture. Normal [facility] IMPRESSION: 1. There is mild central narrowing at L4-L5 related to grade 1 anterolisthesis, severe facet arthropathy, and endplate spurring. There is a left foraminal disc protrusion and moderate left foraminal narrowing with abutment of the left L4 nerve root. 2. Multilevel discogenic change and facet arthropathy otherwise as described above. There is no central stenosis otherwise. There is mild to moderate foraminal narrowing otherwise as described above. 3. There is a mild chronic superior endplate compression deformity at L2. No acute fracture. [facility] MRI OF THE LUMBAR SP INE WITHOUT CONTRAST, 12/18/2018. COMPARISON: Lumbar spine x-rays from 09/30/2017. HISTORY: Chronic low back pain which radiates into the mid back. Pseudoclaudication syndrome. TECHNIQUE: Sagittal T1, T2 and STIR images were obtained along with axial T1 and T2 images without contrast. FINDINGS: There is mild curvature of the thoracolumbar junction convex to the left and mild curvature of the lower lumbar spine convex to the right. There is grade 1 anterolisthesis of L4 on L5 measuring 8 mm. Moderate to severe degenerative disc disease is present at L4-L5 and L5-S1 with disc height loss and endplate spurring. There is a mild chronic superior endplate compression deformity at L2. No acute fracture is identified in the lumbar spine. There is disc desiccation throughout the lumbar spine. No acute abnormality is identified involving visualized intrapelvic or intra-abdominal structures. The visualized aorta is normal in diameter. The upper sacrum is intact. No pars defects are identified. The conus demonstrates normal signal intensity terminating at the T12-L1 level. L5-S1: There is a 4 mm broad-based disc protrusion with associated endplate spurring and moderate facet arthropathy. There is mild left foraminal narrowing without central stenosis. L4-L5: Anterolisthesis of L4 on L5 measures 8 mm with severe associated facet arthropathy. There is a diffuse disc bulge with a superimposed left foraminal disc protrusion measuring 4 mm in AP dimension with superior migration of disc material. There is moderate left and mild right foraminal narrowing. Mild central narrowing is also present with the thecal sac measuring 9 mm in AP dimension. L3-L4: A broad-based disc protrusion measures up to 5 mm in AP dimension with moderate to severe facet arthropathy. Mild to moderate left and mild right foraminal narrowing is present without central stenosis. L2-L3: A 5 mm broad-based disc protrusion is asymmetric to the right with mild to moderate facet arthropathy. There is mild right foraminal narrowing without central stenosis. L1-L2: There is a 4 mm broad-based disc protrusion with endplate spurring and mild to moderate facet arthropathy. There is mild to moderate right foraminal narrowing without central stenosis. T12-L1: There is a 4 mm broad-based disc protrusion and mild to moderate facet arthropathy. There is no central stenosis. There is mild left foraminal narrowing. T11-T12: There is a 4 mm broad-based disc protrusion and mild to moderate facet arthropathy. Mild to moderate left and mild right foraminal narrowing is present. [employer] - 12/18/2018 1:39 PM EDT MRI OF THE LUMBAR SPINE WITHOUT CONTRAST, 12/18/2018. COMPARISON: Lumbar spine x-rays from 09/30/2017. HISTORY: Chronic low back pain which radiates into the mid back. Pseudoclaudication syndrome. TECHNIQUE: Sagittal T1, T2 and STIR images were obtained along with axial T1 and T2 images without contrast. FINDINGS: There is mild curvature of the thoracolumbar junction convex to the left and mild curvature of the lower lumbar spine convex to the right. There is grade 1 anterolisthesis of L4 on L5 measuring 8 mm. Moderate to severe degenerative disc disease is present at L4-L5 and L5-S1 with disc height loss and endplate spurring. There is a mild chronic superior endplate compression deformity at L2. No acute fracture is identified in the lumbar spine. There is disc desiccation throughout the lumbar spine. No acute abnormality is identified involving visualized intrapelvic or intra-abdominal structures. The visualized aorta is normal in diameter. The upper sacrum is intact. No pars defects are identified. The conus demonstrates normal signal intensity terminating at the T12-L1 level. L5-S1: There is a 4 mm broad-based disc protrusion with associated endplate spurring and moderate facet arthropathy. There is mild left foraminal narrowing without central stenosis. L4-L5: Anterolisthesis of L4 on L5 measures 8 mm with severe associated facet arthropathy. There is a diffuse disc bulge with a superimposed left foraminal disc protrusion measuring 4 mm in AP dimension with superior migration of disc material. There is moderate left and mild right foraminal narrowing. Mild central narrowing is also present with the thecal sac measuring 9 mm in AP dimension. L3-L4: A broad-based disc protrusion measures up to 5 mm in AP dimension with moderate to severe facet arthropathy. Mild to moderate left and mild right foraminal narrowing is present without central stenosis. L2-L3: A 5 mm broad-based disc protrusion is asymmetric to the right with mild to moderate facet arthropathy. There is mild right foraminal narrowing without central stenosis. L1-L2: There is a 4 mm broad-based disc protrusion with endplate spurring and mild to moderate facet arthropathy. There is mild to moderate right foraminal narrowing without central stenosis. T12-L1: There is a 4 mm broad-based disc protrusion and mild to moderate facet arthropathy. There is no central stenosis. There is mild left foraminal narrowing. T11-T12: There is a 4 mm broad-based disc protrusion and mild to moderate facet arthropathy. Mild to moderate left and mild right foraminal narrowing is present. IMPRESSION IMPRESSION: 1. There is mild central narrowing at L4-L5 related to grade 1 anterolisthesis, severe facet arthropathy, and endplate spurring. There is a left foraminal disc protrusion and moderate left foraminal narrowing with abutment of the left L4 nerve root. 2. Multilevel discogenic change and facet arthropathy otherwise as described above. There is no central stenosis otherwise. There is mild to moderate foraminal narrowing otherwise as described above. 3. There is a mild chronic superior endplate compression deformity at L2. No acute fracture. [facility] 08-04-2018 Albumin [Mass/Vol] 4.2 g/dL Normal 3.4-5.0 [facility] Comment on above: Performed By: #### 2 [id number] #### ISABEL [facility] [place] [address] Albumin/Globulin [Mass ratio] 1.6 {ratio} Normal 1.1-1.9 [facility] Comment on above: Performed By: #### 2 [id number] #### ISABEL [facility] [place] [address] Alk Phos 60 Int._Unit/L Normal 33-136 [facility] Comment on above: Performed By: #### 2 [id number] #### ISABEL [facility] [place] [address] ALT [Catalytic activity/Vol] 9 Int._Unit/L Normal 7-45 [facility] Comment on above: Performed By: #### 2 [id number] #### ISABEL [facility] [place] [address] Anion gap [Moles/Vol] 10 mmol/L Normal 10-20 [facility] Comment on above: Performed By: #### 2 [id number] #### ISABEL [employer] [address] [place] [address] AST [Catalytic activity/Vol] 15 Int._Unit/L Normal 9-39 [facility] Comment on above: Performed By: #### 2 [id number] #### ISABEL [employer] [address] [place] [address] Bili Total 0.28 mg/dL Normal 0.00-1.20 [facility] Comment on above: Performed By: #### 2 [id number] #### ISABEL [employer] [address] [place] [address] Calcium [Mass/Vol] 9.9 mg/dL Normal 8.6-10.3 [facility] Comment on above: Performed By: #### 2 [id number] #### ISABEL [employer] [address] [place] [address] Chloride [Moles/Vol] 100 mmol/L Normal 98-107 [facility] Comment on above: Performed By: #### 2 [id number] #### ISABEL [employer] [address] [place] [address] CO2 [Moles/Vol] 30.0 mmol/L Normal 21.0-32.0 [facility] Comment on above: Performed By: #### 2 [id number] #### ISABEL [employer] [address] [place] [address] Creatinine [Mass/Vol] 0.8 mg/dL Normal 0.5-1.1 [facility] Comment on above: Performed By: #### 2 [id number] #### ISABEL [employer] [address] [place] [address] Globulin (S) [Mass/Vol] 3.0 g/dL Normal 2.0-4.0 [facility] Comment on above: Performed By: #### 2 [id number] #### ISABEL [employer] [address] [place] [address] Glucose [Mass/Vol] 111 mg/dL High 70-99 [facility] Comment on above: Performed By: #### 2 [id number] #### ISABEL [employer] [address] [place] [address] Potassium [Moles/Vol] 3.6 mmol/L Normal 3.5-5.3 [facility] Comment on above: Performed By: #### 2 [id number] #### ISABEL [employer] [address] [place] [address] Protein [Mass/Vol] 6.8 g/dL Normal 6.4-8.2 [facility] Comment on above: Performed By: #### 2 [id number] #### ISABEL [employer] [address] [place] [address] Sodium [Moles/Vol] 136 mmol/L Normal 136-145 [facility] Comment on above: Performed By: #### 2 [id number] #### ISABEL [employer] [address] [place] [address] Urea nitrogen [Mass/Vol] 20 mg/dL Normal 6-23 [facility] Comment on above: Performed By: #### 2 [id number] #### ISABEL [employer] [address] [place] [address] Urea nitrogen/Creatinine [Mass ratio] 25.0 ratio Normal 5.4-30.0 [facility] Comment on above: Performed By: #### 2 [id number] #### ISABEL [employer] [address] [place] [address] eGFRon 08-04-2018 GFR/1.73 sq M predicted among non-blacks MDRD (S/P/Bld) [Vol rate/Area] mL/min/{1.73_m2} Normal [facility] Comment on above: Order Comment: Order added by Discern Expert. Performed By: #### 1 [id number] #### ISABEL [employer] [address] [place] [address] CRP, C-Reactive Proteinon CRP - Inflammation 6.7 mg/L Invalid Interpretation Code 0 - 10 mg/L [facility] CRP, C-Reactive Protein 6.7 mg/L Normal 0.0-10.0 [facility] Comment on above: Performed By: #### C RPQT, SEDR ####Unless otherwise noted, all testing performed by [address] [id number]: [id number] Director: Tanvir Haile M.D. HAND BILATERAL, 2 VIEWSon Bilirubin (direct) Final ReportAccession No: [id number] Performed: Nov 25 2017 11:02AMExamination: HAND BILATERAL, 2 VIEWSPROCEDURE: HAND BILATERAL, 2 VIEWS 11/25/2017 11:02 AMCLINICAL HISTORY: Pain/Tenderness of the bilateral hands and wrists for 2to 3years. Pain has been increasing.COMPARISON: None.TECHNIQUE: 2 views of the right hand. 2 views of the left hand.FINDINGS:RIGHT HAND: There is a prominent subchondral cyst in the distal radius.Smallcyst is noted in the scaphoid bone.There is severe degenerative joint disease of the first carpometacarpaljointmanifest ed by joint space narrowing and sclerotic bony changes. There aremoderate degenerative changes involving the interphalangeal jointsmanifestedby joint space narrowing.There is a small erosion in the base of the third proximal phalanx.There are no soft tissue calcifications.LEFT HAND: There is degenerative joint disease involving the carpal bonesonthe radial side with joint space narrowing and sclerotic bony changes.Interphalangeal joint space narrowing also noted compatible withdegenerativejoint disease.There are no erosive appearing bony changes.There are no soft tissue calcifications.IMPRESSION:1. No acute bony abnormalities.2. There is extensive bilateral degenerative joint disease.3. Small erosion is noted in the base of the right third proximalphalanx.This could represent inflammatory arthropathy.Interpreting Physician: FAUSTINA VILLAFUERTE M.D.Trans: gvanho : cc: Normal [facility] Rheumatoid Factoron 11-26-19 18 Rheumatoid Factor Negative Normal Negative [facility] Comment on above: Performed By: #### R F ####Unless otherwise noted, all testing performed by [address] [id number]: [id number] Director: Tanvir Haile M.D. Sed Rateon 11-25-2017 Sed Rate 17 MM/hr. Normal 0-20 [facility] Comment on above: Performed By: #### C RPQT, SEDR ####Unless otherwise noted, all testing performed by [address] [id number]: [id number] Director: Tanvir Haile M.D. Sedimentation Rateon 018 Sed Rate 17 MM/hr. Invalid Interpretation Code 0 - 20 [facility] Vital Signs Date Time Vital Sign Value Performing Clinician Facility 09-15-2024 11:03-0500 Diastolic blood pressure 63 mm[Hg] Kennedy Mojgan Jr., DPM Work Phone: [facility] 09-15-2024 11:03-0500 Heart rate 73 /min Kennedy Mojgan Jr., DPM Work Phone: [facility] 09-15-2024 11:03-0500 Systolic blood pressure 160 mm[Hg] Kennedy Mojgan Jr., DPM Work Phone: [facility] 09-15-2024 10:38-0500 Body temperature 96.8 [degF] Kennedy Mojgan Jr., DPM Work Phone: [facility] 06-09-2024 10:36-0500 Body temperature 97.5 [degF] Kennedy Mojgan Jr., DPM Work Phone: [facility] 06-09-2024 10:36-0500 Diastolic blood pressure 68 mm[Hg] Kennedy Mojgan Jr., DPM Work Phone: [facility] 06-09-2024 10:36-0500 Heart rate 62 /min Kennedy Mojgan Jr., DPM Work Phone: [facility] 06-09-2024 10:36-0500 Systolic blood pressure 125 mm[Hg] Kennedy Mojgan Jr., DPM Work Phone: [facility] 05-03-2024 13:10-0400 Body height 147.3 cm Kyler Stentz PA-C Work Phone: [facility] 05-03-2024 13:10-0400 Body mass index (BMI) [Ratio] 30.1 kg/m2 Kyler Stentz PA-C Work Phone: [facility] 05-03-2024 13:10-040 Body weight 65.32 kg Kyler Stentz PA-C Work Phone: [facility] 05-03-2024 13:10-0400 Diastolic blood pressure 76 mm[Hg] Kyler Stentz PA-C Work Phone: [facility] 05-03-2024 13:10-0400 Heart rate 66 /min Kyler Stentz PA-C Work Phone: [facility] 05-03-2024 13:10-0400 SaO2% (BldA) [Mass fraction] 97 % Kyler Stentz PA-C Work Phone: [facility] 05-03-2024 13:10-0400 Systolic blood pressure 138 mm[Hg] Kyler Stentz PA-C Work Phone: [facility] 04-02-2024 09:55-0400 Diastolic blood pressure 71 mm[Hg] Kennedy Ulrich Jr., DPM Work Phone: [facility] Comment on above: pt stressed today-running late - does mo nitor at home 04-02-2024 09:55-0400 Heart rate 67 /min Kennedy Ulrich Jr., DPM Work Phone: [facility] 04-02-2024 09:55-0400 Systolic blood pressure 193 mm[Hg] Kennedy Ulrich Jr., DPM Work Phone: [facility] Comment on above: pt stressed today-running late - does mo nitor at home 04-02-2024 09:47-0400 Body temperature 98.29 [degF] Kennedy Ulrich Jr., DPM Work Phone: [facility] 03-30-2024 13:18-0400 Body height 152.4 cm Rolando Hanna DO [facility] 03-30-2024 13:18-0400 Body mass index (BMI) [Ratio] 28.71 kg/m2 Rolando Hanna DO [facility] 03-30-2024 13:18-0400 Body weight 66.68 kg Rolando Hanna DO [facility] 03-05-2024 15:18-0400 Diastolic blood pressure 64 mm[Hg] Avery Das MD Work Phone: [facility] 03-05-2024 15:18-0400 Heart rate 65 /min Avery Das MD Work Phone: [facility] 03-05-2024 15:18-0400 Systolic blood pressure 151 mm[Hg] Avery Das MD Work Phone: [facility] 02-04-2024 09:49-0400 Body height 152.4 cm Rloando Hanna DO [facility] 02-04-2024 09:49-0400 Body mass index (BMI) [Ratio] 28.12 kg/m2 Rolando Hanna DO [facility] 02-04-2024 09:49-0400 Body weight 65.32 kg Rolando Hanna DO [facility] 01-30-2024 09:30-0400 Body height 149.8 cm Emmanuel Ricketts MD MPH Work Phone: [facility] 01-30-2024 09:30-0400 Body mass index (BMI) [Ratio] 28.88 kg/m2 Emmanuel Ricketts MD MPH Work Phone: [facility] 01-30-2024 09:30-0400 Body weight 64.82 kg Emmanuel Ricketts MD MPH Work Phone: [facility] 01-30-2024 09:30-0400 Diastolic blood pressure 78 mm[Hg] Emmanuel Ricketts MD MPH Work Phone: [facility] 01-30-2024 09:30-0400 Heart rate 75 /min Emmanuel Ricketts MD MPH Work Phone: [facility] 01-30-2024 09:30-0400 SaO2% (BldA) [Mass fraction] 97 % Emmanuel Ricketts MD MPH Work Phone: [facility] 01-30-2024 09:30-0400 Systolic blood pressure 168 mm[Hg] Emmanuel Ricketts MD MPH Work Phone: [facility] 11-29-2023 14:05-0400 Respiratory rate 16 /min Nayely Mae MD Work Phone: [facility] 11-29-2023 11:31-0400 Diastolic blood pressure 59 mm[Hg] Nayely Mae MD Work Phone: [facility] 11-29-2023 11:31-0400 Heart rate 86 /min Nayely Mae MD Work Phone: [facility] 11-29-2023 11:31-0400 SaO2% (BldA) [Mass fraction] 94 % Nayely Mae MD Work Phone: [facility] 11-29-2023 11:31-0400 Systolic blood pressure 136 mm[Hg] Nayely Mae MD Work Phone: [facility] 11-29-2023 11:26-0400 Body temperature 98.1 [degF] Nayely Mae MD Work Phone: [facility] 11-26-2023 10:19-0400 Body height 152.4 cm Nayely Mae MD Work Phone: [facility] 11-26-2023 10:19-0400 Body mass index (BMI) [Ratio] 27.73 kg/m2 Nayely Mae MD Work Phone: [facility] 11-26-2023 10:19-0400 Body weight 64.4 kg Nayely Mae MD Work Phone: [facility] 10-29-2023 14:34-0400 Body temperature 97.3 [degF] Kennedy Ulrich Jr. DPM Work Phone: [facility] 10-29-2023 14:34-0400 Diastolic blood pressure 82 mm[Hg] Kennedy Ulrich Jr. DPM Work Phone: [facility] 10-29-2023 14:34-0400 Heart rate 63 /min Kennedy Ulrich Jr. DPM Work Phone: [facility] [facility] 10-29-2023 14:34-0400 Systolic blood pressure 160 mm[Hg] Kennedy Ulrich Jr., DPM Work Phone: [facility] 07-25-2023 08:01-0500 Body mass index (BMI) [Ratio] 29.93 kg/m2 Emmanuel Ricketts MD MPH Work Phone: [facility] 07-25-2023 08:01-0500 Body weight 67.18 kg Emmanuel Ricketts MD MPH Work Phone: [facility] 07-25-2023 08:01-0500 Diastolic blood pressure 78 mm[Hg] Emmanuel Ricketts MD MPH Work Phone: [facility] 07-25-2023 08:01-0500 Heart rate 75 /min Emmanuel Ricketts MD MPH Work Phone: [facility] 07-25-2023 08:01-0500 SaO2% (BldA) [Mass fraction] 96 % Emmanuel Ricketts MD MPH Work Phone: [facility] 07-25-2023 08:01-0500 Systolic blood pressure 140 mm[Hg] Emmanuel Ricketts MD MPH Work Phone: [facility] 07-04-2023 15:10-0500 Body mass index (BMI) [Ratio] 29.81 kg/m2 Emmanuel Ricketts MD MPH Work Phone: [facility] 07-04-2023 15:10-0500 Body weight 66.91 kg Emmanuel Ricketts MD MPH Work Phone: [facility] 07-04-2023 15:10-0500 Diastolic blood pressure 60 mm[Hg] Emmanuel Ricketts MD MPH Work Phone: [facility] 07-04-2023 15:10-0500 Heart rate 78 /min Emmanuel Ricketts MD MPH Work Phone: [facility] 07-04-2023 15:10-0500 SaO2% (BldA) [Mass fraction] 94 % Emmanuel Ricketts MD MPH Work Phone: [facility] 07-04-2023 15:10-0500 Systolic blood pressure 146 mm[Hg] Emmanuel Ricketts MD MPH Work Phone: [facility] 06-19-2023 13:52-0500 Body height 149.8 cm Kyler Stentz PA-C Work Phone: [facility] 06-19-2023 13:52-0500 Body mass index (BMI) [Ratio] 28.9 kg/m2 Kyler Stentz PA-C Work Phone: [facility] 06-19-2023 13:52-0500 Body weight 64.86 kg Kyler Stentz PA-C Work Phone: [facility] 06-19-2023 13:52-0500 Diastolic blood pressure 93 mm[Hg] Kyler Stentz PA-C Work Phone: [facility] 06-19-2023 13:52-0500 Heart rate 64 /min Kyler Stentz PA-C Work Phone: [facility] 06-19-2023 13:52-0500 Systolic blood pressure 160 mm[Hg] Kyler Stentz PA-C Work Phone: [facility] 04-21-2023 16:07-0400 Body temperature 99.3 [degF] Erwin Armas DO Work Phone: [facility] 04-21-2023 16:07-0400 Diastolic blood pressure 51 mm[Hg] Erwin Armas DO Work Phone: [facility] 04-21-2023 16:07-0400 Heart rate 73 /min Erwin Armas DO Work Phone: [facility] 04-21-2023 16:07-0400 Respiratory rate 20 /min Erwin Armas DO Work Phone: [facility] 04-21-2023 16:07-0400 SaO2% (BldA) [Mass fraction] 93 % Erwin Armas DO Work Phone: [facility] 04-21-2023 16:07-0400 Systolic blood pressure 143 mm[Hg] Erwin Armas DO Work Phone: [facility] 04-17-2023 08:09-0400 Body height 149.8 cm Erwin Armas DO Work Phone: [facility] 04-17-2023 08:09-0400 Body mass index (BMI) [Ratio] 30.75 kg/m2 Erwin Armas DO Work Phone: [facility] 04-17-2023 08:09-0400 Body weight 69 kg Erwin Armas DO Work Phone: [facility] 04-05-2023 11:32-0400 Body temperature 97.9 [degF] Rolando Vivarl DO Work Phone: [employer] 04-05-2023 11:32-0400 Diastolic blood pressure 68 mm[Hg] Rolando Vivarl DO Work Phone: [facility] [employer] [facility] 04-05-2023 11:32-0400 Heart rate 77 /min Rolando Vivarl DO Work Phone: [facility] [employer] [facility] 04-05-2023 11:32-0400 Respiratory rate 14 /min Rolando Vivarl DO Work Phone: [facility] [employer] [facility] 04-05-2023 11:32-0400 SaO2% (BldA) [Mass fraction] 94 % Rolando Vivarl DO Work Phone: [facility] [employer] [facility] 04-05-2023 11:32-0400 Systolic blood pressure 148 mm[Hg] Rolando Rohl DO Work Phone: [facility] [employer] [facility] 04-03-2023 08:24-0400 Body height 149.9 cm Rolando Vivarl DO Work Phone: [employer] [facility] 04-03-2023 08:24-0400 Body mass index (BMI) [Ratio] 28.19 kg/m2 Rolando Hanna DO Work Phone: [facility] 04-03-2023 08:24-0400 Body weight 63.3 kg Rolando Hanna DO Work Phone: [facility] 01-08-2023 11:22-0400 Diastolic blood pressure 69 mm[Hg] Kennedy Ulrich Jr., DPM Work Phone: [facility] 01-08-2023 11:22-0400 Heart rate 60 /min Kennedy Ulrich Jr., DPM Work Phone: [facility] 01-08-2023 11:22-0400 Systolic blood pressure 158 mm[Hg] Kennedy Ulrich Jr., DPM Work Phone: [facility] 01-08-2023 11:20-0400 Body temperature 98.1 [degF] Kennedy Ulrich Jr., DPM Work Phone: [facility] 11-15-2022 11:21-0400 Body mass index (BMI) [Ratio] 27.95 kg/m2 Emmanuel Ricketts MD MPH Work Phone: [facility] 11-15-2022 11:21-0400 Body weight 64.91 kg Emmanuel Ricketts MD MPH Work Phone: [facility] 11-15-2022 11:21-0400 Diastolic blood pressure 84 mm[Hg] Emmanuel Ricketts MD MPH Work Phone: [facility] 11-15-2022 11:21-0400 Heart rate 79 /min Emmanuel Ricketts MD MPH Work Phone: [facility] 11-15-2022 11:21-0400 SaO2% (BldA) [Mass fraction] 94 % Emmanuel Ricketts MD MPH Work Phone: [facility] 11-15-2022 11:21-0400 Systolic blood pressure 140 mm[Hg] Emmanuel Ricketts MD MPH Work Phone: [facility] 10-23-2022 10:54-0400 Body height 152.4 cm Emmanuel Ricketts MD MPH Work Phone: [facility] 10-23-2022 10:54-0400 Body mass index (BMI) [Ratio] 27.44 kg/m2 Emmanuel Ricketts MD MPH Work Phone: [facility] 10-23-2022 10:54-0400 Body weight 63.73 kg Emmanuel Ricketts MD MPH Work Phone: [facility] 10-23-2022 10:54-0400 Diastolic blood pressure 70 mm[Hg] Emmanuel Ricketts MD MPH Work Phone: [facility] 10-23-2022 10:54-0400 Heart rate 57 /min Emmanuel Ricketts MD MPH Work Phone: [facility] 10-23-2022 10:54-0400 SaO2% (BldA) [Mass fraction] 94 % Emmanuel Ricketts MD MPH Work Phone: [facility] 10-23-2022 10:54-0400 Systolic blood pressure 120 mm[Hg] Emmanuel Ricketts MD MPH Work Phone: [facility] 09-25-2022 11:26-0500 Diastolic blood pressure 70 mm[Hg] Kennedy Ulrich Jr. DPM Work Phone: [facility] 09-25-2022 11:26-0500 Heart rate 54 /min Kennedy Ulrich Jr., DPM Work Phone: [facility] 09-25-2022 11:26-0500 Systolic blood pressure 154 mm[Hg] Kennedy Ulrich Jr., DPM Work Phone: [facility] 09-25-2022 11:22-0500 Body temperature 97.2 [degF] Kennedy Mojgan Jr., DPM Work Phone: [facility] 09-13-2022 14:52-0500 Diastolic blood pressure 68 mm[Hg] Kennedy Mojgan Jr., DPM Work Phone: [facility] 09-13-2022 14:52-0500 Heart rate 59 /min Kennedy Mojgan Jr., DPM Work Phone: [facility] 09-13-2022 14:52-0500 Systolic blood pressure 155 mm[Hg] Kennedy Mojgan Jr., DPM Work Phone: [facility] 09-13-2022 14:47-0500 Body temperature 98.29 [degF] Kennedy Mojgan Jr., DPM Work Phone: [facility] 09-06-2022 15:23-0500 Diastolic blood pressure 76 mm[Hg] Kennedy Mojgan Jr., DPM Work Phone: [facility] Comment on above: pt nervous about procedure 09-06-2022 15:23-0500 Heart rate 66 /min Kennedy Mojgan Jr., DPM Work Phone: [facility] 09-06-2022 15:23-0500 Systolic blood pressure 186 mm[Hg] Kennedy Mojgan Jr., DPM Work Phone: [facility] Comment on above: pt nervous about procedure 09-06-2022 15:15-0500 Body temperature 96.8 [degF] Kennedy Mojgan Jr., DPM Work Phone: [facility] 08-30-2022 14:19-0500 Diastolic blood pressure 75 mm[Hg] Kennedy Mojgan Jr., DPM Work Phone: [facility] 08-30-2022 14:19-0500 Heart rate 65 /min Kennedy Mojgan Jr., DPM Work Phone: [facility] 08-30-2022 14:19-0500 Systolic blood pressure 135 mm[Hg] Kennedy Mojgan Jr., DPM Work Phone: [facility] 08-30-2022 14:14-0500 Body temperature 97.9 [degF] Kennedy Mojgan Garzon, DPM Work Phone: [facility] 08-12-2022 14:42-0500 Body height 152.4 cm Emmanuel Nag S Mallapareddi Work Phone: [facility] Work Phone: 08-12-2022 14:42-0500 Body mass index (BMI) [Ratio] 27.99 kg/m2 Emmanuel Nag S Mallapareddi Work Phone: [facility] Work Phone: 08-12-2022 14:42-0500 Body surface area Derived from formula 1.62 m2 Emmanuel Nag S Mallapareddi Work Phone: [facility] Work Phone: 08-12-2022 14:42-0500 Body weight 65 kg Emmanuel Nag S Mallapareddi Work Phone: [facility] Work Phone: 08-12-2022 14:42-0500 Diastolic blood pressure 78 mm[Hg] Emmanuel Nag S Mallapareddi Work Phone: [facility] Work Phone: 08-12-2022 14:42-0500 Heart rate 71 /min Emmanuel Nag S Mallapareddi Work Phone: [facility] Work Phone: 08-12-2022 14:42-0500 Systolic blood pressure 124 mm[Hg] Emmanuel Nag S Mallapareddi Work Phone: [facility] Work Phone: 07-23-2022 11:26-0500 Body height 152.4 cm Emmanuel Nag S Mallapareddi Work Phone: [facility] Work Phone: 07-23-2022 11:26-0500 Body mass index (BMI) [Ratio] 27.67 kg/m2 Emmanuel Nag S Mallapareddi Work Phone: [facility] Work Phone: 07-23-2022 11:26-0500 Body surface area Derived from formula 1.61 m2 Emmanuel Nag S Mallapareddi Work Phone: [facility] Work Phone: 07-23-2022 11:26-0500 Body weight 64.27 kg Emmanuel Nag S Mallapareddi Work Phone: [facility] Work Phone: 07-23-2022 11:26-0500 Diastolic blood pressure 70 mm[Hg] Emmanuel Nag S Mallapareddi Work Phone: [facility] Work Phone: 07-23-2022 11:26-0500 Heart rate 71 /min Emmanuel Nag S Mallapareddi Work Phone: [facility] Work Phone: 07-23-2022 11:26-0500 Systolic blood pressure 132 mm[Hg] Emmanuel Nag S Mallapareddi Work Phone: [facility] Work Phone: 06-25-2022 13:16-0500 Body height 152.4 cm Emmanuel Nag S Mallapareddi Work Phone: [facility] Work Phone: 06-25-2022 13:16-0500 Body mass index (BMI) [Ratio] 28.2 kg/m2 Emmanuel Nag S Mallapareddi Work Phone: [facility] Work Phone: 06-25-2022 13:16-0500 Body surface area Derived from formula 1.63 m2 Emmanuel Nag S Mallapareddi Work Phone: [facility] Work Phone: 06-25-2022 13:16-0500 Body weight 65.5 kg Emmanuel Nag S Mallapareddi Work Phone: [facility] Work Phone: 06-25-2022 13:16-0500 Diastolic blood pressure 72 mm[Hg] Emmanuel Nag S Mallapareddi Work Phone: [facility] Work Phone: 06-25-2022 13:16-0500 Heart rate 72 /min Emmanuel Nag S Mallapareddi Work Phone: [facility] Work Phone: 06-25-2022 13:16-0500 Systolic blood pressure 110 mm[Hg] Emmanuel Nag S Mallapareddi Work Phone: [facility] Work Phone: 05-07-2022 12:51-0400 Body height 152.4 cm Emmanuel Nag S Mallapareddi Work Phone: [facility] Work Phone: 05-07-2022 12:51-0400 Body mass index (BMI) [Ratio] 27.03 kg/m2 Emmanuel Nag S Mallapareddi Work Phone: [facility] Work Phone: 05-07-2022 12:51-0400 Body surface area Derived from formula 1.6 m2 Emmanuel Nag S Mallapareddi Work Phone: [facility] Work Phone: 05-07-2022 12:51-0400 Body weight 62.78 kg Emmanuel Nag S Mallapareddi Work Phone: [facility] Work Phone: 05-07-2022 12:51-0400 Diastolic blood pressure 100 mm[Hg] Emmanuel Nag S Mallapareddi Work Phone: [facility] Work Phone: 05-07-2022 12:51-0400 Heart rate 67 /min Emmanuel Nag S Mallapareddi Work Phone: [facility] Work Phone: 05-07-2022 12:51-0400 Systolic blood pressure 142 mm[Hg] Emmanuel Nag S Mallapareddi Work Phone: [facility] Work Phone: 02-08-2022 15:26-0400 Body height 152.4 cm Emmanuel Nag S Mallapareddi Work Phone: [facility] Work Phone: 02-08-2022 15:26-0400 Body mass index (BMI) [Ratio] 27.57 kg/m2 Emmanuel Nag S Mallapareddi Work Phone: [facility] Work Phone: 02-08-2022 15:26-0400 Body surface area Derived from formula 1.61 m2 Emmanuel Nag S Mallapareddi Work Phone: [facility] Work Phone: 02-08-2022 15:26-0400 Body weight 64.04 kg Emmanuel Nag S Mallapareddi Work Phone: [facility] Work Phone: 02-08-2022 15:26-0400 Diastolic blood pressure 82 mm[Hg] Emmanuel Nag S Mallapareddi Work Phone: [facility] Work Phone: 02-08-2022 15:26-0400 Heart rate 64 /min Emmanuel Nag S Mallapareddi Work Phone: [facility] Work Phone: 02-08-2022 15:26-0400 Systolic blood pressure 146 mm[Hg] Emmanuel Nag S Mallapareddi Work Phone: [facility] Work Phone: 01-09-2022 13:03-0400 Body height 152.4 cm Andrzej Muir MD Work Phone: [facility] 01-09-2022 13:03-0400 Body mass index (BMI) [Ratio] 27.65 kg/m2 Andrzej Muir MD Work Phone: [facility] 01-09-2022 13:03-0400 Body temperature 97.2 [degF] Andrzej Muir MD Work Phone: [facility] 01-09-2022 13:03-0400 Body weight 64.23 kg Andrzej Muir MD Work Phone: [facility] 12-25-2021 14:51-0400 Body temperature 96.8 [degF] Yumiko Cherelle DPM Work Phone: [facility] 12-25-2021 14:51-0400 Diastolic blood pressure 69 mm[Hg] Yumiko Cherelle DPM Work Phone: [facility] 12-25-2021 14:51-0400 Heart rate 65 /min Yumiko Cherelle DPM Work Phone: [facility] 12-25-2021 14:51-0400 Systolic blood pressure 138 mm[Hg] Yumiko Roy DPM Work Phone: [facility] 12-03-2021 14:09-0400 Body height 152.4 cm Emmanuel Nag S Mallapareddi Work Phone: [facility] Work Phone: 12-03-2021 14:09-0400 Body mass index (BMI) [Ratio] 27.98 kg/m2 Emmanuel Nag S Mallapareddi Work Phone: [facility] Work Phone: 12-03-2021 14:09-0400 Body surface area Derived from formula 1.62 m2 Emmanuel Nag S Mallapareddi Work Phone: [facility] Work Phone: 12-03-2021 14:09-0400 Body weight 64.97 kg Emmanuel Nag S Mallapareddi Work Phone: [facility] Work Phone: 12-03-2021 14:09-0400 Diastolic blood pressure 82 mm[Hg] Emmanuel Nag S Mallapareddi Work Phone: [facility] Work Phone: 12-03-2021 14:09-0400 Heart rate 72 /min Emmanuel Nag S Mallapareddi Work Phone: [facility] Work Phone: 12-03-2021 14:09-0400 Systolic blood pressure 162 mm[Hg] Emmanuel Nag S Mallapareddi Work Phone: [facility] Work Phone: 11-06-2021 15:20-0400 Body height 152.4 cm Emmanuel Nag S Mallapareddi Work Phone: [facility] Work Phone: 11-06-2021 15:20-0400 Body mass index (BMI) [Ratio] 27.32 kg/m2 Emmanuel Nag S Mallapareddi Work Phone: [facility] Work Phone: 11-06-2021 15:20-0400 Body surface area Derived from formula 1.6 m2 Emmanuel Nag S Mallapareddi Work Phone: [facility] Work Phone: 11-06-2021 15:20-0400 Body weight 63.45 kg Emmanuel Nag S Mallapareddi Work Phone: [facility] Work Phone: 11-06-2021 15:20-0400 Diastolic blood pressure 80 mm[Hg] Emmanuel Nag S Mallapareddi Work Phone: [facility] Work Phone: 11-06-2021 15:20-0400 Heart rate 71 /min Emmanuel Nag S Mallapareddi Work Phone: [facility] Work Phone: 11-06-2021 15:20-0400 Systolic blood pressure 130 mm[Hg] Emmanuel Nag S Mallapareddi Work Phone: [facility] Work Phone: 10-18-2021 08:53-0400 Body height 152.4 cm Emmanuel Nag S Mallapareddi Work Phone: [facility] Work Phone: 10-18-2021 08:53-0400 Body mass index (BMI) [Ratio] 27.22 kg/m2 Emmanuel Nag S Mallapareddi Work Phone: [facility] Work Phone: 10-18-2021 08:53-0400 Body surface area Derived from formula 1.6 m2 Emmanuel Nag S Mallapareddi Work Phone: [facility] Work Phone: 10-18-2021 08:53-0400 Body weight 63.23 kg Emmanuel Nag S Mallapareddi Work Phone: [facility] Work Phone: 10-18-2021 08:53-0400 Diastolic blood pressure 80 mm[Hg] Emmanuel Nag S Mallapareddi Work Phone: [facility] Work Phone: 10-18-2021 08:53-0400 Heart rate 66 /min Emmanuel Nag S Mallapareddi Work Phone: [facility] Work Phone: 10-18-2021 08:53-0400 SaO2% (BldA) [Mass fraction] 93 % Emmanuel Nag S Mallapareddi Work Phone: [facility] Work Phone: 10-18-2021 08:53-0400 Systolic blood pressure 130 mm[Hg] Emmanuel Nag S Mallapareddi Work Phone: [facility] Work Phone: 10-02-2021 11:17-0400 Diastolic blood pressure 68 mm[Hg] Emmanuel Nag S Mallapareddi Work Phone: [facility] Work Phone: 10-02-2021 11:17-0400 Heart rate 68 /min Emmanuel Nag S Mallapareddi Work Phone: [facility] Work Phone: 10-02-2021 11:17-0400 Systolic blood pressure 150 mm[Hg] Emmanuel Nag S Mallapareddi Work Phone: [facility] Work Phone: 09-04-2021 10:51-0500 Diastolic blood pressure 84 mm[Hg] Yumiko Roy DPM Work Phone: [facility] Comment on above: pt was talking - a bit stressed 09-04-2021 10:51-0500 Heart rate 63 /min Yumiko Roy DPM Work Phone: [facility] 09-04-2021 10:51-0500 Systolic blood pressure 156 mm[Hg] Yumiko Cherelle DPM Work Phone: [facility] Comment on above: pt was talking - a bit stressed 09-04-2021 10:42-0500 Body temperature 97.7 [degF] Yumiko Roy DPM Work Phone: [facility] 06-18-2021 12:59-0500 Body height 152.4 cm Emmanuel Nag S Mallapareddi Work Phone: [facility] Work Phone: 06-18-2021 12:59-0500 Body mass index (BMI) [Ratio] 28.51 kg/m2 Emmanuel Nag S Mallapareddi Work Phone: [facility] Work Phone: 06-18-2021 12:59-0500 Body surface area Derived from formula 1.63 m2 Emmanuel Nag S Mallapareddi Work Phone: [facility] Work Phone: 06-18-2021 12:59-0500 Body weight 66.22 kg Emmanuel Nag S Mallapareddi Work Phone: [facility] Work Phone: 06-18-2021 12:59-0500 Diastolic blood pressure 86 mm[Hg] Emmanuel Nag S Mallapareddi Work Phone: [facility] Work Phone: 06-18-2021 12:59-0500 Heart rate 72 /min Emmanuel Nag S Mallapareddi Work Phone: [facility] Work Phone: 06-18-2021 12:59-0500 Systolic blood pressure 182 mm[Hg] Emmanuel Nag S Mallapareddi Work Phone: [facility] Work Phone: 05-08-2021 14:20-0400 Body mass index (BMI) [Ratio] 28.43 kg/m2 Emmanuel Nag S Mallapareddi Work Phone: [facility]Fhvfplyzfd[facility]Zudyjb [facility] Work Phone: 05-08-2021 14:20-0400 Body surface area Derived from formula 1.63 m2 Emmanuel Nag S Mallapareddi Work Phone: QW-Mftvcotogo-Fqfiuj [facility] Work Phone: 05-08-2021 14:20-0400 Body weight 66.03 kg Emmanuel Nag S Mallapareddi Work Phone: RS-Flbmwmcsqq-Axdpws [facility] Work Phone: 05-08-2021 14:20-0400 Diastolic blood pressure 78 mm[Hg] Emmanuel Betancourt Mallapareddi Work Phone: OJ-Mkttdbyvon-Wgbywg [facility] Work Phone: 05-08-2021 14:20-0400 Heart rate 71 /min Emmanuel Betancourt Mallapareddi Work Phone: HT-Htbyqmmpav-Xcxsti [facility] Work Phone: 05-08-2021 14:20-0400 Respiratory rate 18 /min Emmanuel Betancourt Mallapareddi Work Phone: LU-Yrojpnbpfk-Fnpkts [facility] Work Phone: 05-08-2021 14:20-0400 SaO2% (BldA) [Mass fraction] 95 % Emmanuel Betancourt Mallapareddi Work Phone: CI-Lqjvmqgbhr-Ienskn [facility] Work Phone: 05-08-2021 14:20-0400 Systolic blood pressure 196 mm[Hg] Emmanuel Betancourt Mallapareddi Work Phone: KV-Lbanggeuox-Hjskdn [facility] Work Phone: 04-26-2021 09:28-0400 Body height 152.4 cm Emmanuel Betancourt Mallapareddi Work Phone: LK-Axxevrcytj-Yqbitv urg Work Phone: 04-26-2021 09:28-0400 Body mass index (BMI) [Ratio] 28.9 kg/m2 Emmanuel Betancourt Mallapareddi Work Phone: WC-Iyzqrdwxmc-Wkggxj urg Work Phone: 04-26-2021 09:28-0400 Body surface area Derived from formula 1.64 m2 Emmanuel Betancourt Mallapareddi Work Phone: QF-Mdjeifrhmg-Eecqaj urg Work Phone: 04-26-2021 09:28-0400 Body weight 67.13 kg Emmanuel Mu S Mallapareddi Work Phone: HI-Rhloegujrf-Hlptpv urg Work Phone: 04-26-2021 09:28-0400 Diastolic blood pressure 78 mm[Hg] Emmanuel Mu S Mallapareddi Work Phone: PX-Cporctfnvv-Uunxsp urg Work Phone: 04-26-2021 09:28-0400 Heart rate 64 /min Emmanuel Nag S Mallapareddi Work Phone: YS-Vxldozzcwd-Ihvewq urg Work Phone: 04-26-2021 09:28-0400 SaO2% (BldA) [Mass fraction] 96 % Emmanuel Dobbins S Mallapareddi Work Phone: WZ-Yvhbiavcur-Tqvsdx urg Work Phone: 04-26-2021 09:28-0400 Systolic blood pressure 199 mm[Hg] Emmanuel Mu S Mallapareddi Work Phone: SQ-Djwwgoksbj-Dbderj urg Work Phone: 04-13-2021 10:53-0400 Body temperature 98.2 [degF] Kennedy Ulrich Jr., DPM Work Phone: [facility] 04-13-2021 10:53-0400 Diastolic blood pressure 74 mm[Hg] Kennedy Ulrich Jr., DPM Work Phone: [facility] 04-13-2021 10:53-0400 Heart rate 66 /min Kennedy Ulrich Jr., DPM Work Phone: [facility] 04-13-2021 10:53-0400 Systolic blood pressure 172 mm[Hg] Kennedy Ulrich Jr., DPM Work Phone: [facility] 03-27-2021 13:25-0400 Body height 154.94 cm Emmanuel Nag S Mallapareddi Work Phone: [facility] Work Phone: 03-27-2021 13:25-0400 Body mass index (BMI) [Ratio] 26.83 kg/m2 Emmanuel Nag S Mallapareddi Work Phone: [facility] Work Phone: 03-27-2021 13:25-0400 Body surface area Derived from formula 1.63 m2 Emmanuel Nag S Mallapareddi Work Phone: [facility] Work Phone: 03-27-2021 13:25-0400 Body weight 64.41 kg Emmanuel Nag S Mallapareddi Work Phone: [facility] Work Phone: 03-27-2021 13:25-0400 Diastolic blood pressure 80 mm[Hg] Emmanuel Nag S Mallapareddi Work Phone: [facility] Work Phone: 03-27-2021 13:25-0400 Heart rate 65 /min Emmanuel Nag S Mallapareddi Work Phone: [facility] Work Phone: 03-27-2021 13:25-0400 Respiratory rate 18 /min Emmanuel Nag S Mallapareddi Work Phone: [facility] Work Phone: 03-27-2021 13:25-0400 SaO2% (BldA) [Mass fraction] 96 % Emmanuel Nag S Mallapareddi Work Phone: [facility] Work Phone: 03-27-2021 13:25-0400 Systolic blood pressure 136 mm[Hg] Emmanuel Nag S Mallapareddi Work Phone: [facility] Work Phone: 03-05-2021 15:30-0400 Body height 154.9 cm Siddharth Vyas MD Work Phone: [facility] 03-05-2021 15:30-0400 Body mass index (BMI) [Ratio] 27.21 kg/m2 Siddharth Vyas MD Work Phone: [facility] 03-05-2021 15:30-0400 Body weight 65.32 kg Siddharth Vyas MD Work Phone: [facility] 02-20-2021 10:34-0400 Body height 152.4 cm Emmanuel Nag S Mallapareddi Work Phone: [facility] Work Phone: 02-20-2021 10:34-0400 Body mass index (BMI) [Ratio] 27.83 kg/m2 Emmanuel Nag S Mallapareddi Work Phone: [facility] Work Phone: 02-20-2021 10:34-0400 Body surface area Derived from formula 1.62 m2 Emmanuel Nag S Mallapareddi Work Phone: [facility] Work Phone: 02-20-2021 10:34-0400 Body weight 64.63 kg Emmanuel Nag S Mallapareddi Work Phone: [facility] Work Phone: 02-20-2021 10:34-0400 Diastolic blood pressure 82 mm[Hg] Emmanuel Nag S Mallapareddi Work Phone: [facility] Work Phone: 02-20-2021 10:34-0400 Heart rate 60 /min Emmanuel Nag S Mallapareddi Work Phone: [facility] Work Phone: 02-20-2021 10:34-0400 Systolic blood pressure 160 mm[Hg] Emmanuel Nag S Mallapareddi Work Phone: [facility] Work Phone: 01-25-2021 11:05-0400 Body height 152.4 cm Emmanuel Nag S Mallapareddi Work Phone: [facility] Work Phone: 01-25-2021 11:05-0400 Body mass index (BMI) [Ratio] 27.93 kg/m2 Emmanuel Nag S Mallapareddi Work Phone: [facility] Work Phone: 01-25-2021 11:05-0400 Body surface area Derived from formula 1.62 m2 Emmanuel Nag S Mallapareddi Work Phone: [facility] Work Phone: 01-25-2021 11:05-0400 Body weight 64.86 kg Emmanuel Nag S Mallapareddi Work Phone: [facility] Work Phone: 01-25-2021 11:05-0400 Diastolic blood pressure 76 mm[Hg] Emmanuel Nag S Mallapareddi Work Phone: [facility] Work Phone: 01-25-2021 11:05-0400 Heart rate 60 /min Emmanuel Nag S Mallapareddi Work Phone: [facility] Work Phone: 01-25-2021 11:05-0400 Respiratory rate 14 /min Emmanuel Nag S Mallapareddi Work Phone: [facility] Work Phone: 01-25-2021 11:05-0400 SaO2% (BldA) [Mass fraction] 95 % Emmanuel Nag S Mallapareddi Work Phone: [facility] Work Phone: 01-25-2021 11:05-0400 Systolic blood pressure 178 mm[Hg] Emmanuel Nag S Mallapareddi Work Phone: [facility] Work Phone: 01-03-2021 11:19-0400 Body height 157.48 cm Emmanuel Nag S Mallapareddi Work Phone: [facility] Work Phone: 01-03-2021 11:19-0400 Body mass index (BMI) [Ratio] 25.8 kg/m2 Emmanuel Nag S Mallapareddi Work Phone: [facility] Work Phone: 01-03-2021 11:19-0400 Body surface area Derived from formula 1.65 m2 Emmanuel Nag S Mallapareddi Work Phone: [facility] Work Phone: 01-03-2021 11:19-0400 Body weight 63.98 kg Emmanuel Nag S Mallapareddi Work Phone: [facility] Work Phone: 12-05-2020 14:00-0400 Body height 159 cm Emmanuel Nag S Mallapareddi Work Phone: [facility] Work Phone: 12-05-2020 14:00-0400 Body mass index (BMI) [Ratio] 26.04 kg/m2 Emmanuel Nag S Mallapareddi Work Phone: [facility] Work Phone: 12-05-2020 14:00-0400 Body surface area Derived from formula 1.68 m2 Emmanuel Nag S Mallapareddi Work Phone: [facility] Work Phone: 12-05-2020 14:00-0400 Body weight 65.82 kg Emmanuel Nag S Mallapareddi Work Phone: [facility] Work Phone: 12-05-2020 14:00-0400 Diastolic blood pressure 78 mm[Hg] Emmanuel Mu S Mallapareddi Work Phone: [facility] Work Phone: 12-05-2020 14:00-0400 Heart rate 72 /min Emmanuel Mu S Mallapareddi Work Phone: [facility] Work Phone: 12-05-2020 14:00-0400 Systolic blood pressure 154 mm[Hg] Emmanuel Dobbins S Mallapareddi Work Phone: [facility] Work Phone: 10-20-2020 10:30-0400 BP Diastolic 87 mm[Hg] [facility] 10-20-2020 10:30-0400 BP Systolic 170 mm[Hg] [facility] 10-20-2020 10:30-0400 Pulse Oximetry 96 % [facility] 10-20-2020 10:29-0400 BMI (Body Mass Index) 29.1 kg/m2 [facility] 10-20-2020 10:29-0400 Body Temperature 97.11 [degF] [facility] 10-20-2020 10:29-0400 Body weight 67.59 kg [facility] 10-20-2020 10:29-0400 Height 152.4 cm [facility] 10-20-2020 10:29-0400 Pulse (Heart Rate) 84 /min [facility] 10-20-2020 10:29-0400 Respiratory Rate 16 /min [facility] 08-30-2020 12:30-0500 BMI (Body Mass Index) 26.55 kg/m2 Emmanuel Nag Mallapareddi [facility] Work Phone: 08-30-2020 12:30-0500 Body weight 67.13 kg Emmanuel Nag Mallapareddi [facility] Work Phone: 08-30-2020 12:30-0500 BP Diastolic 72 mm[Hg] Emmanuel Nag Mallapareddi [facility] Work Phone: 08-30-2020 12:30-0500 BP Systolic 140 mm[Hg] Emmanuel Mu Sernaapareddi [facility] Work Phone: 08-30-2020 12:30-0500 BSA (Body Surface Area) 1.69 m2 Emmanuel Luongreddi [facility] Work Phone: 08-30-2020 12:30-0500 Height 159 cm Emmanuel Luongreddi [facility] Work Phone: 08-30-2020 12:30-0500 Pulse (Heart Rate) 68 /min Emmanuel Sernaapareddi [facility] Work Phone: 08-11-2019 17:54-0500 BMI (Body Mass Index) 26.7 kg/m2 Andrew Anulas [facility] Work Phone: 08-11-2019 17:54-0500 Body weight 67.5 kg Andrew Anulas [facility] Work Phone: 08-11-2019 17:54-0500 BP Diastolic 82 mm[Hg] Andrew Anulas [facility] Work Phone: 08-11-2019 17:54-0500 BP Systolic 160 mm[Hg] Andrew Anulas [facility] Work Phone: 08-11-2019 17:54-0500 BSA (Body Surface Area) 1.7 m2 Andrew Anulas [facility] Work Phone: 08-11-2019 17:54-0500 Height 159 cm Andrew Anulas [facility] Work Phone: 08-11-2019 17:54-0500 Pulse (Heart Rate) 78 /min Andrew Anulas [facility] Work Phone: 02-25-2018 11:24-0400 BMI (Body Mass Index) 28.34 kg/m2 Zan Santos [facility] 02-25-2018 11:24-0400 Body Temperature 98.4 [degF] Zan Santos [facility] 02-25-2018 11:24-0400 BP Diastolic 75 mm[Hg] Zan Santos [facility] 02-25-2018 11:24-0400 BP Systolic 151 mm[Hg] Zan Santos [facility] 02-25-2018 11:24-0400 Height 154.9 cm Zan Santos [facility] 02-25-2018 11:24-0400 Pulse (Heart Rate) 60 /min Zan Santos [facility] 02-25-2018 11:24-0400 Respiratory Rate 16 /min Zan Santos [facility] 02-25-2018 11:24-0400 Weight 68.04 kg Zan Santos [facility] 11-25-2017 13:57-0400 BMI (Body Mass Index) 28.34 kg/m2 Norbert Griffin [facility] 11-25-2017 13:57-0400 BP Diastolic 63 mm[Hg] Norbert Griffin [facility] 11-25-2017 13:57-0400 BP Systolic 127 mm[Hg] Norbert Griffin [facility] 11-25-2017 13:57-0400 Height 154.9 cm Norbert Griffin [facility] 11-25-2017 13:57-0400 Pulse (Heart Rate) 72 /min Norbert Griffin [facility] 11-25-2017 13:57-0400 Pulse Oximetry 93 % Norbert Griffin [facility] 11-25-2017 13:57-0400 Weight 68.04 kg Norbert Griffin [facility] 11-25-2017 10:29-0400 BMI (Body Mass Index) 28.34 kg/m2 Aissatou Dominguez [facility] 11-25-2017 10:29-0400 BP Diastolic 80 mm[Hg] Aissatou Dominguez [facility] 11-25-2017 10:29-0400 BP Systolic 167 mm[Hg] Aissatou Dominguez [facility] 11-25-2017 10:29-0400 Pulse (Heart Rate) 67 /min Aissatou Dominguez [facility] 11-25-2017 10:29-0400 Weight 68.04 kg Aissatou Dominguez [facility] Encounters Encounter Date Encounter Type Care Provider Facility Start: 02-10-2025 ambulatory Pieter Lerma lity:[facility] Start: 09-15-2024 End: 09-15-2024 ambulatory KENNEDY ULRICH JR. [facility] Start: 09-15-2024 End: 09-15-2024 Office outpatient visit 15 minutes Kennedy Ulrich DPM Work Phone: [facility] Comment on above: Tinea pedis of left foot (Primary Dx) Start: 06-29-2024 End: 06-29-2024 ambulatory [facility] Start: 06-09-2024 End: 06-09-2024 Office outpatient visit 15 minutes Kennedy WIGGINSM Work Phone: [facility] Comment on above: Acquired hammertoe o f left foot (Primary Dx); Callus Start: 06-09-2024 End: 06-09-2024 ambulatory KENNEDY ULRICH JR. [facility] Start: 05-03-2024 End: 05-03-2024 ambulatory [facility] Start: 05-03-2024 End: 05-03-2024 Encounter for general adult medical examination without abnormal findings [facility] Start: 05-03-2024 End: 05-03-2024 Assay of hemosiderin, quant Kylersmitha Wetzel PA-C Work Phone: [facility] Work Phone: Start: 05-03-2024 End: 05-03-2024 Patient encounter procedure Kyler Wetzel PA-C Work Phone: [facility] Comment on above: Routine general medi jr examination at health care facility (Primary Dx); Benign essential HTN; Chronic pain syndrome; Temporal arteritis (Multi); Acquired hypothyroidism; Screening cholesterol level; Chronic low back pain, unspecified back pain laterality, unspecified whether sciatica present; Osteopenia, unspecified location Start: 04-02-2024 End: 04-02-2024 Office outpatient visit 15 minutes Kennedy Ulrich DPM Work Phone: [facility] Comment on above: Callus (Primary Dx); Hammer toe of left foot; Corns Start: 04-02-2024 End: 04-02-2024 ambulatory KENNEDY ULRICH JR. [facility] Start: 03-30-2024 End: 03-30-2024 Office outpatient visit 25 minutes Rolando Hanna Work Phone: [facility] Start: 03-26-2024 End: 03-26-2024 Postop follow up visit related to original px Avery Das MD Work Phone: [facility] Comment on above: S/P hardware removal (Primary Dx) Start: 03-26-2024 End: 03-26-2024 Refill Pao Scott [facility] Comment on above: S/P hardware removal (Primary Dx); Humerus head fracture, left, with routine healing, subsequent encounter Start: 03-09-2024 End: 03-09-2024 ambulatory [facility] Start: 03-05-2024 End: 03-05-2024 ambulatory AVERY DAS [facility] Start: 03-05-2024 End: 03-05-2024 Office outpatient visit 10 minutes Avery Das MD Work Phone: [facility] Comment on above: Humerus head fractur e, left, with routine healing, subsequent encounter (Primary Dx) Start: 03-05-2024 End: 03-05-2024 ambulatory [facility] Start: 03-04-2024 End: 03-04-2024 Admission to same day surgery center Avery Das MD Work Phone: [facility] Comment on above: Humerus head fractur e, left, with routine healing, subsequent encounter (Primary Dx) Start: 02-20-2024 End: 02-20-2024 Refill Elaina Ruggiero [employer] [facility] Comment on above: Humerus head fractur e, left, with routine healing, subsequent encounter (Primary Dx) Start: 02-06-2024 End: 02-10-2024 ambulatory AVERY DAS [facility] Start: 02-06-2024 End: 02-06-2024 Follow-up encounter Avery Das MD Work Phone: [facility] Comment on above: Humerus head fractur e, left, with routine healing, subsequent encounter (Primary Dx) Start: 02-04-2024 End: 02-04-2024 Office outpatient visit 25 minutes Rolando Leandra Hanna Work Phone: [facility] Start: 02-02-2024 End: 02-02-2024 Refill Elaina Ruggiero LPN [facility] Comment on above: Humerus head fractur e, left, with routine healing, subsequent encounter (Primary Dx) Start: 01-30-2024 End: 01-30-2024 Office outpatient visit 15 minutes Emmanuel Ricketts MD MPH Work Phone: [facility] Comment on above: Benign essential HTN (Primary Dx); Spinal stenosis of lumbar region with neurogenic claudication Start: 01-30-2024 End: 01-30-2024 ambulatory EMMANUELHONG Betancourt [facility] Start: 01-23-2024 End: 01-23-2024 Refill Elaina Ruggiero LPN [facility] Comment on above: Humerus head fractur e, left, with routine healing, subsequent encounter (Primary Dx) Start: 01-09-2024 End: 01-09-2024 Postop follow up visit related to original px Avery Das MD Work Phone: [facility] Comment on above: Humerus head fractur e, left, with routine healing, subsequent encounter (Primary Dx) Start: 01-09-2024 End: 01-13-2024 Refill Elaina Ruggiero LPN [facility] Comment on above: Humerus head fractur e, left, with routine healing, subsequent encounter (Primary Dx) Start: 01-02-2024 Refill Avery Das MD Work Phone: [facility] Comment on above: Humerus head fractur e, left, with routine healing, subsequent encounter (Primary Dx) Start: 12-26-2023 Documentation procedure Jocelyn Brian [facility] Comment on above: Humerus head fractur e, left, with routine healing, subsequent encounter Start: 12-19-2023 Refill Avery Das MD Work Phone: [facility] Comment on above: Humerus head fractur e, left, with routine healing, subsequent encounter (Primary Dx) Start: 12-12-2023 End: 12-16-2023 Refill Elania Ruggiero LPN [facility] Comment on above: Humerus head fractur e, left, with routine healing, subsequent encounter (Primary Dx) Start: 12-12-2023 End: 12-12-2023 Postop follow up visit related to original px Avery Das MD Work Phone: [facility] Comment on above: Humerus head fractur e, left, with routine healing, subsequent encounter (Primary Dx) Start: 12-01-2023 Refill Elaina louis [employer] [facility] Comment on above: Humerus head fractur e, left, with routine healing, subsequent encounter (Primary Dx) Start: 11-25-2023 End: 11-29-2023 Emergency department patient visit [facility] Start: 11-25-2023 End: 11-29-2023 Evaluation and management of inpatient Obdulio Barragan DO Work Phone: [facility] Start: 10-29-2023 End: 11-02-2023 ambulatory KENNEDY ULRICH JR. [facility] Start: 10-29-2023 End: 10-29-2023 Office outpatient visit 15 minutes Kennedy Ulrich DPM Work Phone: [facility] Comment on above: Plantar fasciitis, l eft (Primary Dx) Start: 09-30-2023 End: 09-30-2023 Office outpatient visit 15 minutes Rolando Hanna Work Phone: [facility] Start: 07-25-2023 End: 07-25-2023 ambulatory EMMANUEL RICKETTS [facility] Start: 07-25-2023 End: 07-25-2023 Office outpatient visit 15 minutes Emmanuel Ricketts MD MPH Work Phone: [facility] Comment on above: Fall, initial encoun ter (Primary Dx); Acute deep vein thrombosis (DVT) of popliteal vein of right lower extremity (CMS/HCC) Start: 07-04-2023 End: 07-04-2023 Office outpatient visit 25 minutes Emmanuel Ricketts MD MPH Work Phone: [facility] Comment on above: Iron deficiency anem ia, unspecified iron deficiency anemia type (Primary Dx); Hypothyroidism, unspecified type; Spinal stenosis of lumbar region with neurogenic claudication; Fall in home, subsequent encounter; Weight gain Start: 07-01-2023 End: 07-01-2023 Encounter identifier Rolando Hanna Work Phone: [facility] Start: 07-01-2023 End: 07-01-2023 Postop follow up visit related to original px Rolando Ghazalal DO [facility] Start: 06-19-2023 End: 06-19-2023 ambulatory KYLER WETZEL [facility] Start: 06-19-2023 End: 06-19-2023 Office outpatient visit 15 minutes Kyler Wetzel PA-C Work Phone: [facility] Comment on above: Chronic low back jessy n, unspecified back pain laterality, unspecified whether sciatica present (Primary Dx) Start: 05-14-2023 End: 05-14-2023 Encounter identifier Rolando Hanna Work Phone: [facility] Start: 04-29-2023 End: 04-29-2023 Postop follow up visit related to original px Rolando Rohl DO [facility] Start: 04-29-2023 End: 04-29-2023 Encounter identifier Rolando Hanna Work Phone: [facility] Start: 04-16-2023 End: 04-19-2023 Evaluation and management of inpatient Dr. Emmanuel Ricketts Facility:[id number] Start: 04-16-2023 End: 04-21-2023 Evaluation and management of inpatient Erwin Armas DO Work Phone: [facility] Comment on above: Hypothyroidism, unsp ecified type (Primary Dx); Syncope and collapse; Shortness of breath; Other pulmonary embolism without acute cor pulmonale (CMS/HCC) Start: 04-09-2023 End: 04-09-2023 Encounter identifier Rolando Hanna Work Phone: [facility] Start: 04-05-2023 End: 04-05-2023 [facility] hospital care/day 25 minutes Rolando Hanna DO [facility] Start: 04-04-2023 End: 04-04-2023 [facility] hospital care/day 25 minutes Rolando Hanna DO [facility] Start: 04-03-2023 End: 04-03-2023 Encounter identifier Jannet Trujillo Work Phone: [facility] Start: 04-03-2023 End: 04-05-2023 [facility] hospital care/day 25 minutes Yasir Goss Work Phone: [place] Start: 04-03-2023 End: 04-05-2023 Evaluation and management of inpatient ROLANDO HANNA [facility] Start: 04-03-2023 ambulatory ROLANDO ROHL [facility] Start: 04-03-2023 End: 04-05-2023 Evaluation and management of inpatient Rolando Hanna DO Work Phone: [facility] Start: 01-08-2023 End: 01-08-2023 Office outpatient visit 15 minutes Kennedy Ulrich DPM Work Phone: [facility] Comment on above: Acquired hammertoe o f left foot (Primary Dx) Start: 12-23-2022 End: 12-23-2022 Office outpatient visit 40 minutes Rolando Hanna Work Phone: [facility] Start: 12-06-[address] Emmanuel Ricketts Facility:[id number] Start: 11-15-2022 End: 11-15-2022 Office outpatient visit 15 minutes Emmanuel Ricketts MD MPH Work Phone: [facility] Comment on above: Chronic neck pain (P rimary Dx); Other chronic pain; Spinal stenosis of lumbar region with neurogenic claudication Start: 11-11-2022 End: 11-11-2022 ambulatory Rolandovictorina Novak Jacques DO Work Phone: [facility] Comment on above: Spinal stenosis, lum bar region with neurogenic claudication (Primary Dx); Chronic low back pain with sciatica, sciatica laterality unspecified, unspecified back pain laterality; Spondylolisthesis of lumbar region; Lumbar radiculopathy Start: 11-07-2022 End: 11-07-2022 ambulatory Rolandovictorina Novak Jacques DO Work Phone: [facility] Comment on above: Spinal stenosis, lum bar region with neurogenic claudication (Primary Dx); Chronic low back pain with sciatica, sciatica laterality unspecified, unspecified back pain laterality; Spondylolisthesis of lumbar region; Lumbar radiculopathy Start: 11-04-2022 End: 11-04-2022 ambulatory Rolando Novak Jacques Work Phone: [facility] Comment on above: Spinal stenosis, lum bar region with neurogenic claudication (Primary Dx); Chronic low back pain with sciatica, sciatica laterality unspecified, unspecified back pain laterality; Spondylolisthesis of lumbar region; Lumbar radiculopathy Start: 10-31-2022 End: 10-31-2022 ambulatory Rolandovictorina Novak Jacques DO Work Phone: [facility] Comment on above: Spinal stenosis, lum bar region with neurogenic claudication (Primary Dx); Chronic low back pain with sciatica, sciatica laterality unspecified, unspecified back pain laterality; Spondylolisthesis of lumbar region; Lumbar radiculopathy Start: 10-28-2022 End: 10-28-2022 ambulatory Rolando Hanna DO Work Phone: [facility] Comment on above: Spinal stenosis, lum bar region with neurogenic claudication (Primary Dx); Chronic low back pain, unspecified back pain laterality, unspecified whether sciatica present; Spondylolisthesis of lumbar region; Lumbar radiculopathy Start: 10-24-2022 End: 10-24-2022 ambulatory Rolando Hanna DO Work Phone: [facility] Comment on above: Spinal stenosis, lum bar region with neurogenic claudication (Primary Dx); Chronic low back pain, unspecified back pain laterality, unspecified whether sciatica present; Spondylolisthesis of lumbar region; Lumbar radiculopathy Start: 10-23-2022 End: 10-23-2022 Assay of hemosiderin, quant Emmanuel Ricketts MD MPH Work Phone: [facility] Work Phone: Start: 10-23-2022 End: 10-23-2022 Patient encounter procedure Emmanuel Ricketts MD MPH Work Phone: [facility] Comment on above: Routine general medi jr examination at health care facility (Primary Dx); Other chronic pain; Acquired hypothyroidism; Screening for hyperlipidemia Start: 10-15-2022 End: 10-15-2022 ambulatory Rolandovictorina Novak Jacques DO Work Phone: [facility] Comment on above: Other forms of scoli osis, lumbar region; Lumbar radiculopathy; Spinal stenosis, lumbar region, with neurogenic claudication; Spondylolisthesis of lumbar region Start: 10-08-2022 Transcribe Orders Rolando Vivarkarolina DO Work Phone: [facility] Comment on above: Other forms of scoli osis, lumbar region (Primary Dx); Lumbar radiculopathy; Spinal stenosis, lumbar region, with neurogenic claudication; Spondylolisthesis of lumbar region Start: 10-07-2022 End: 10-07-2022 Office outpatient visit 40 minutes Jannet Trujillo Work Phone: [facility] Start: 09-25-2022 End: 09-25-2022 Postop follow up visit related to original px Kennedy Ulrich DPM Work Phone: [facility] Comment on above: Acquired hammertoe o f left foot (Primary Dx) Start: 09-13-2022 End: 09-13-2022 Postop follow up visit related to original px Kennedy Lopezn DPM Work Phone: [facility] Comment on above: Acquired hammertoe o f left foot (Primary Dx) Start: 09-06-2022 End: 09-06-2022 Patient encounter procedure Kennedy Ulrich DPM Work Phone: [facility] Comment on above: Acquired hammertoe o f left foot (Primary Dx) Start: 08-30-2022 End: 08-30-2022 Office outpatient visit 25 minutes Kennedy Ulrich DPM Work Phone: [facility] Podiatry Comment on above: Acquired hammertoe o f left foot (Primary Dx) Start: 08-29-2022 MARY BETH Ricketts Work Phone: [facility] Work Phone: Start: 08-12-2022 Adv care pln tlkd & alt dcsn maker docd Emmanuel Ricketts Work Phone: [facility] Work Phone: Start: 08-12-[address] Emmanuel Ricketts Facility:[id number] Start: 07-29-2022 End: 07-29-2022 Office outpatient visit 25 minutes Rolando Hanna Work Phone: [place] Start: 07-25-2022 AUDIT Emmanuel Ricketts Work Phone: [facility] Work Phone: Start: 07-23-2022 Office outpatient vi sit 15 minutes Emmanuel Betancourt Mallapareddi Work Phone: -[facility] Work Phone: Start: 07-23-[address] Emmanuel Dobbins [facility] Mallapareddi Facility:[id number] Start: 07-18-[address] Emmanuel Dobbins [facility] Mallaparedkari Facility:[id number] Start: 06-25-[address] Emmanuel Dobbins [facility] Mallapareddi Facility:[id number] Start: 06-25-2022 Office outpatient vi sit 15 minutes Emmanuel Betancourt Mallapareddi Work Phone: -[facility] Work Phone: Start: 06-21-2022 AUDIT Emmanuel Betancourt Mallapareddi Work Phone: [facility] Work Phone: Start: 06-18-2022 AUDIT Emmanuel Dobbins S Mallapareddi Work Phone: [facility] Work Phone: Start: 05-10-2022 Chart Update Emmanuel Betancourt Mallapareddi Work Phone: [facility] Work Phone: Start: 05-09-2022 AUDIT Emmanuel Betancourt Mallapareddi Work Phone: [facility] Work Phone: Start: 05-07-2022 Adv care pln tlkd & alt dcsn maker docd Emmanuel Betancourt Mallapareddi Work Phone: [facility] Work Phone: Start: 05-07-[address] Emmanuel Dobbins [facility] Mallapareddi Facility:[id number] Start: 04-29-2022 AUDIT Emmanuel Betancourt Mallapareddi Work Phone: [facility] Work Phone: Start: 04-22-2022 End: 04-23-2022 ambulatory ALYSSA ARENAS [facility] Start: 03-29-2022 AUDIT Emmanuel Betancourt Mallapareddi Work Phone: [facility] Work Phone: Start: 02-08-2022 Office outpatient vi sit 25 minutes Emmanuel Betancourt Mallapareddi Work Phone: [facility] Work Phone: Start: 01-23-2022 AUDIT Emmanuel Betancourt Mallapareddi Work Phone: [facility] Work Phone: Start: 01-17-2022 End: 01-17-2022 ambulatory Emmanuel Ricketts [facility] Phone[facility] Comment on above: Neck pain (Primary D x); Chronic midline low back pain with sciatica, sciatica laterality unspecified Start: 01-15-2022 End: 01-15-2022 ambulatory Emmanuel Ricketts MD Work Phone: [facility] Comment on above: Neck pain (Primary D x); Chronic back pain, unspecified back location, unspecified back pain laterality Start: 01-10-2022 End: 01-10-2022 ambulatory Emmanuel Ricketts MD [facility] Phone: [facility] Comment on above: Neck pain (Primary D x) Start: 01-09-2022 End: 01-09-2022 Office outpatient new 30 minutes Andrzej Muir MD Work Phone: [facility] Comment on above: Dupuytren contractur e (Primary Dx) Start: 01-02-2022 End: 01-02-2022 ambulatory Emmanuel Ricketts MD Work Phone: [facility] Comment on above: Neck pain (Primary D x) Start: 12-31-2021 End: 12-31-2021 ambulatory Emmanuel Ricketts MD Work Phone: [facility] Comment on above: Neck pain (Primary D x); Chronic low back pain with sciatica, sciatica laterality unspecified, unspecified back pain laterality Start: 12-26-2021 End: 12-26-2021 ambulatory Emmanuel Ricketts MD Work Phone: [facility] Comment on above: Neck pain (Primary D x); Chronic low back pain with sciatica, sciatica laterality unspecified, unspecified back pain laterality Start: 12-25-2021 End: 12-25-2021 Office outpatient visit 15 minutes Yumiko Villarreal DPM Work Phone: [facility] Comment on above: Peripheral vascular disease, unspecified (HCC) (Primary Dx); Acquired hammertoe of left foot; Onychomycosis; Toe pain, left Start: 12-24-2021 AUDIT Emmanuel Ricketts Work Phone: [facility] Work Phone: Start: 12-18-2021 End: 12-18-2021 ambulatory Emmanuel Ricketts MD Work Phone: [facility] Comment on above: Neck pain (Primary D x); Chronic low back pain, unspecified back pain laterality, unspecified whether sciatica present Start: 12-12-2021 End: 12-12-2021 ambulatory Emmanuel Ricketts MD Work Phone: [facility] Comment on above: Neck pain (Primary D x); Chronic low back pain with sciatica, sciatica laterality unspecified, unspecified back pain laterality Start: 12-10-2021 End: 12-10-2021 ambulatory Emmanuel Ricketts MD Work Phone: [facility] Comment on above: Neck pain; Upper back pain Start: 12-05-2021 Transcribe Orders Emmanuel choi MD Work Phone: [facility] Comment on above: Neck pain (Primary D x); Upper back pain Start: 12-03-2021 Office outpatient vi sit 15 minutes Emmanuel Ricketts Work Phone: [facility] Work Phone: Start: 11-23-2021 AUDIT Emmanuel Nag S Mallapareddi Work Phone: [facility] Work Phone: Start: 11-06-2021 Office outpatient vi sit 15 minutes Emmanuel Nag S Mallapareddi Work Phone: [facility] Work Phone: Start: 10-23-2021 AUDIT Emmanuel Nag S Mallapareddi Work Phone: [facility] Work Phone: Start: 10-18-2021 End: 10-18-2021 Patient encounter procedure Amanda Murraycock [facility] Work Phone: [facility] Comment on above: 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 (Primary Dx); Arthritis of right hand; Tendonitis of finger; Dupuytren contracture Start: 10-18-2021 Office outpatient vi sit 25 minutes Emmanuel Nag S Mallapareddi Work Phone: [facility] Work Phone: Start: 10-02-2021 Office outpatient vi sit 15 minutes Emmanuel Nag S Mallapareddi Work Phone: [facility] Work Phone: Start: 09-04-2021 End: 09-04-2021 Office outpatient visit 15 minutes Yumiko Villarreal DPM Work Phone: [facility] Comment on above: Acquired hammertoe o f left foot (Primary Dx); Metatarsalgia, left foot; Corns and callus; Left foot pain Start: 08-30-2021 AUDIT Emmanuel Nag S Mallapareddi Work Phone: [facility] Work Phone: Start: 08-15-2021 AUDIT Emmanuel Nag S Mallapareddi Work Phone: [facility] Work Phone: Start: 07-30-2021 César Brian LPN [facility] Comment on above: 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 (Primary Dx) Start: 07-18-2021 Chart Update Emmanuelhong Betancourt Mallapareddi Work Phone: [facility] Work Phone: Start: 07-10-2021 End: 07-10-2021 Office outpatient new 45 minutes Amanda Marcelino TUMBLER TENDER Work Phone: [facility] Comment on above: 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 (Primary Dx) Start: 06-18-2021 AUDIT Emmanuel Dobbins S Mallapareddi Work Phone: [facility] Work Phone: Start: 06-18-2021 Office outpatient vi sit 25 minutes Emmanuel Mu S Mallapareddi Work Phone: [facility] Work Phone: Start: 06-18-2021 Patient encounter procedure Emmanuel Mu Betancourt Mallapareddi Work Phone: [facility] Work Phone: Start: 06-08-2021 AUDIT Emmanuel Mu S Mallapareddi Work Phone: [facility] Work Phone: Start: 05-08-2021 MSO, Provider: Reggie Zendejas, Status: Pen, Time: 2:00 PM Emmanuel Mu S Mallapareddi Work Phone: [facility] Work Phone: Start: 05-08-2021 Office consultation new/estab patient 40 min Emmanuel Mu S Mallapareddi Work Phone: [facility] 2300 DO Work Phone: Start: 05-08-2021 Patient encounter procedure Emmanuel Mu S Mallapareddi Work Phone: [facility] Work Phone: Start: 05-08-2021 MARLYS, Provider: WIL DESIR, Status: Pen, Time: 2:00 PM Emmanuel Betancourt Mallapareddi Work Phone: [facility] Work Phone: Start: 05-07-2021 AUDIT Emmanuel Betancourt Mallapareddi Work Phone: [facility] Work Phone: Start: 04-26-2021 Office outpatient vi sit 15 minutes Emmanuel Betancourt Mallapareddi Work Phone: [facility] [place] Work Phone: Start: 04-26-2021 Patient encounter procedure Emmanuel Betancourt Mallapareddi Work Phone: [facility] Work Phone: Start: 04-17-2021 AUDIT Emmanuel Betancourt Mallapareddi Work Phone: [facility] Work Phone: Start: 04-13-2021 End: 04-13-2021 Patient encounter procedure Kennedy Ulrich DPM Work Phone: [facility] Comment on above: Onychomycosis (Prima ry Dx); Peripheral vascular disease, unspecified (HCC); Corns Start: 03-22-2021 End: 03-22-2021 ambulatory Rolando Hanna DO Work Phone: [facility] Comment on above: Spondylolisthesis of lumbar region (Primary Dx); Spinal stenosis, lumbar region with neurogenic claudication; Lumbar radiculopathy Start: 03-20-2021 End: 03-20-2021 ambulatory Rolando Hanna DO Work Phone: [facility] Comment on above: Spondylolisthesis of lumbar region (Primary Dx); Spinal stenosis, lumbar region with neurogenic claudication; Lumbar radiculopathy Start: 03-07-2021 End: 03-07-2021 ambulatory Rolando Hanna DO Work Phone: [facility] Comment on above: Spondylolisthesis of lumbar region; Spinal stenosis, lumbar region, with neurogenic claudication; Lumbar radiculopathy; Spinal stenosis, lumbar region with neurogenic claudication Start: 03-05-2021 End: 03-05-2021 Office outpatient new 30 minutes Siddharth Vyas MD Work Phone: [facility] Comment on above: Arthritis of right h and (Primary Dx) Start: 02-20-2021 Office outpatient vi sit 25 minutes Emmanuel Mu S Mallapareddi Work Phone: [facility] Work Phone: Start: 02-20-2021 Patient encounter procedure Emmanuel Nag S Mallapareddi Work Phone: [facility] Work Phone: Start: 02-15-2021 End: 02-15-2021 Transcribe Orders Rolando Vivarkarolina DO Work Phone: [facility] Comment on above: Spondylolisthesis of lumbar region (Primary Dx); Spinal stenosis, lumbar region, with neurogenic claudication; Lumbar radiculopathy Start: 02-05-2021 Chart Update Emmanuel Nag S Mallapareddi Work Phone: [facility] Work Phone: Start: 01-25-2021 Office outpatient vi sit 40 minutes Emmanuel Nag S Mallapareddi Work Phone: [facility] [facility] Work Phone: Start: 01-15-2021 AUDIT Emmanuel Nag S Mallapareddi Work Phone: [facility] Work Phone: Start: 01-10-2021 AUDIT Emmanuel Nag S Mallapareddi Work Phone: [facility] Work Phone: Start: 01-03-2021 Office consultation new/estab patient 40 min Emmanuel Betancourt Mallapareddi Work Phone: [facility] Work Phone: Start: 01-03-2021 Patient encounter procedure Emmanuel Betancourt Mallapareddi Work Phone: [facility] Work Phone: Start: 12-26-2020 AUDIT Emmanuel Betancourt Mallapareddi Work Phone: [facility] Work Phone: Start: 10-20-2020 End: 10-20-2020 Emergency department patient visit Arturo Oliveira Work Phone: [facility] Start: 08-30-2020 Patient encounter procedure Emmanuel Luongreddi [facility] Work Phone: Start: 08-10-2020 End: 08-10-2020 Orders Only Paulina Manjarrez Work Phone: [facility] Start: 06-01-2020 Patient encounter procedure Emmanuel Luongreddi [facility] Work Phone: Start: 04-28-2020 Patient encounter procedure Emmanuel Luongreddi [facility] Work Phone: Start: 02-21-2020 Patient encounter procedure Tr Drummond MD [facility] Work Phone: Start: 12-20-2019 Patient encounter procedure Tr Drummond MD [facility] Work Phone: Start: 12-16-2019 Patient encounter procedure Tr Drummond MD [facility] Work Phone: Start: 11-09-2019 Patient encounter procedure Tr Drummond MD [facility] Work Phone: Start: 08-11-2019 Patient encounter procedure Andrew Pitts [facility] Work Phone: Start: 08-04-2019 Patient encounter procedure Andrew Pitts [facility] Work Phone: Start: 05-05-2019 Patient encounter procedure Andrew Pitts [facility] Work Phone: Start: 12-25-2018 Refill Norbert Griffin DO [facility] Comment on above: Medication Refill Start: 12-18-2018 End: 12-18-2018 Patient encounter procedure Rolando Vivarkarolina Work Phone: [facility] Comment on above: Arrived Start: 02-25-2018 End: 02-25-2018 Office outpatient visit 10 minutes Zan Santos Work Phone: [facility] Start: 11-25-2017 End: 11-25-2017 Office/outpatient visit, est, level 3 Norbert Griffin Work Phone: [facility] Start: 11-25-2017 Ambulatory Aissatou Dominguez Fac[place] Start: 11-25-2017 End: 11-25-2017 Ambulatory Aissatou Dominguez Work Phone: [facility] Start: 11-25-2017 End: 11-25-2017 Office/outpatient visit, new, level 3 Andrew Pitts Work Phone: [facility] Start: 11-24-2017 Refill Norbert Griffin DO [facility] Comment on above: Medication Refill Start: 03-04-2017 Patient encounter Siddharth Vyas Work Phone: [facility] Patient encounter status Emmanuel Ricketts Work Phone: [facility] Work Phone: Procedures Date Procedure Procedure Detail Performing Clinician Start: 03-30-2024 End: 03-30-2024 Radex spine lumbosacral 2/3 views Rolando Rohl DO Start: 02-04-2024 End: 02-04-2024 Radex spine lumbosacral 2/3 views Rolando Rohl DO Start: 11-29-2023 Basic metabolic pane l calcium total Avery Das MD Work Phone: Start: 11-28-2023 Echo tthrc r-t 2d w/wom-mode compl spec&colr d Jie Brock [facility] Work Phone: Start: 11-28-2023 Glucose measurement Destinee amado Mae MD Work Phone: Start: 11-28-2023 End: 11-28-2023 Basic metabolic panel calcium total Avery Das MD Work Phone: Start: 11-27-2023 Blood count hematocrit Lenora Foreman [facility] Work Phone: Start: 11-27-2023 Basic metabolic pane l calcium total Avery Das MD Work Phone: Start: 11-26-2023 End: 11-26-2023 Culture bacterial quanttative colony count urine Lenora Foreman [facility] Work Phone: Start: 11-26-2023 25 hydroxy includes fractions if performed Lenora Foreman [facility] Work Phone: Start: 11-26-2023 Light chain level Devang Galvin MD Work Phone: Start: 11-26-2023 Radex humerus minimu m 2 views Avery Das MD Work Phone: Start: 11-26-2023 End: 11-26-2023 OPEN REDUCTION INTERNAL FIXATION HUMERUS Avery Das MD Work Phone: Start: 11-26-2023 Basic metabolic pane l calcium total Lenora Foreman [facility] Work Phone: Start: 11-25-2023 Mri spinal canal cer vical w/o contrast matrl Lenora Kat Foreman [facility] Work Phone: Start: 11-25-2023 Ct upper extremity w /o contrast material Avery Das MD Work Phone: Start: 11-25-2023 Iadna s aureus methi cillin resist amp probe tq Obdulio Laurel DO Work Phone: Start: 11-25-2023 Ct thorax w/o contra st material Lenora Kat Foreman [facility] Work Phone: Start: 11-25-2023 Ct cervical spine w/ o contrast material Lenora Kat Foreman [facility] Work Phone: Start: 11-25-2023 Ct head/brain w/o co ntrast material Lenora Kat Foreman [facility] Work Phone: Start: 11-25-2023 End: 11-25-2023 Radex shoulder 1 view Nayely Mae MD Work Phone: Start: 11-25-2023 Radiologic exam ches t single view Obdulio Laurel DO Work Phone: Start: 11-25-2023 Blood group typing Neal watsono Laurel DO Work Phone: Start: 11-25-2023 Gases blood ph direc t arabella xcpt pulse oximitry Obdulio Laurel DO Work Phone: Start: 11-25-2023 Blood ethanol measurement Obdulio Tariqach DO Work Phone: Start: 11-25-2023 Blood typing serologic abo Obdulio Tariqach DO Work Phone: Start: 10-29-2023 APPLY DRESSING Kennedy Ulrich DPM Work Phone: Start: 09-30-2023 End: 09-30-2023 Radex spine lumbosacral 2/3 views Rolando Hanna DO Start: 07-25-2023 Basic metabolic 2000 panel - Serum or Plasma KYLER WETZEL Start: 07-01-2023 End: 07-01-2023 Radex spine lumbosacral 2/3 views Rolando Hanna DO Start: 06-19-2023 XR LUMBAR SPINE 2-3 VIEWS RADHAMES SNOWDEN Start: 04-29-2023 End: 04-29-2023 Elec osteogen stim spinal Rolando Hanna DO Start: 04-29-2023 End: 04-29-2023 Radex spine lumbosacral 2/3 views Rolando Hanna DO Start: 04-21-2023 DISCHARGE PATIENT MONA SNODWEN Start: 04-21-2023 Basic metabolic 2000 panel - Serum or Plasma RADHAMES CHILDSCHEM Start: 04-21-2023 CBC panel - Blood by Automated count RADHAMES SNOWDEN Start: 04-21-2023 Magnesium [Mass/volu me] in Serum or Plasma RADHAMES CHILDSCHEM Start: 04-21-2023 Phosphate [Mass/volu me] in Serum or Plasma RADHAMES CHILDSCHEM Start: 04-21-2023 Basic metabolic pane l calcium total Kati Meza MD Work Phone: Start: 04-20-2023 Basic metabolic 2000 panel - Serum or Plasma RADHAMES CHILDSCHEM Start: 04-20-2023 CBC panel - Blood by Automated count RADHAMES SNOWDEN Start: 04-20-2023 Basic metabolic pane l calcium total Joaquin Meng MD Work Phone: Start: 04-19-2023 CUTOVER ADMIT TO INPATIENT RADHAMESMILAN CHILDSCHEM Start: 04-19-2023 TELEMETRY MONITORING PI COLIN SNOWDEN Start: 04-18-2023 Basic metabolic 2000 panel - Serum or Plasma RADHAMES JAMES SNOWDEN Start: 04-18-2023 Magnesium [Mass/volu me] in Serum or Plasma RADHAMES JAMES CHILDSMARCELLO Start: 04-18-2023 Phosphate [Mass/volu me] in Serum or Plasma RADHAMES JAMES CHILDSMARCELLO Start: 04-18-2023 Basic metabolic pane l calcium total Joaquin Meng MD Work Phone: Start: 04-18-2023 Magnesium [Mass/volu me] in Serum or Plasma Joaquin Meng MD Work Phone: Start: 04-18-2023 Phosphate [Mass/volu me] in Serum or Plasma Joaquin Meng MD Work Phone: Start: 04-17-2023 SARS-COV-2 PCR, SCRE EN ASYMPTOMATIC RADHAMES SNOWDEN Start: 04-17-2023 SARS-CoV-2 (COVID-19 ) RNA [Presence] in Respiratory specimen by COBY with probe detection Joaquin Meng MD Work Phone: Start: 04-17-2023 Basic metabolic 2000 panel - Serum or Plasma RADHAMES SNOWEDN Start: 04-17-2023 CBC W Auto Different ial panel - Blood RADHAMES SNOWDEN Start: 04-17-2023 Magnesium [Mass/volu me] in Serum or Plasma RADHAMES SNOWDEN Start: 04-17-2023 Phosphate [Mass/volu me] in Serum or Plasma RADHAMES SNOWDEN Start: 04-17-2023 Basic metabolic pane l calcium total Radhames Snowden MD Work Phone: Start: 04-17-2023 Magnesium [Mass/volu me] in Serum or Plasma Radhames Snowden MD Work Phone: Start: 04-17-2023 Phosphate [Mass/volu me] in Serum or Plasma Radhames Snowden MD Work Phone: Start: 04-17-2023 Heparin unfractionat ed [Units/volume] in Platelet poor plasma by Chromogenic method Erwin Back ByRead Work Phone: Start: 04-16-2023 Heparin assay RADHAMES SNOWDEN Start: 04-16-2023 Heparin unfractionat ed [Units/volume] in Platelet poor plasma by Chromogenic method Erwin Back By[employer] Work Phone: Start: 04-16-2023 Heparin assay RADHAMES SNOWDEN Start: 04-16-2023 Heparin unfractionat ed [Units/volume] in Platelet poor plasma by Chromogenic method Erwin Back [employer] Work Phone: Start: 04-16-2023 Basic metabolic 2000 panel - Serum or Plasma RADHAMES SNOWDEN Start: 04-16-2023 Heparin assay RADHAMES SNOWDEN Start: 04-16-2023 Echocardiography RADHAMES ELLIS MARCELLO Start: 04-16-2023 Basic metabolic pane l calcium total Joaquin Meng MD Work Phone: Start: 04-16-2023 Heparin unfractionat ed [Units/volume] in Platelet poor plasma by Chromogenic method Erwin Back By[employer] Work Phone: Start: 04-16-2023 VENOUS DUPLEX ULTRAS OUND DVT RADHAMES SNOWDEN Start: 04-16-2023 Echocardiography Radhames Snowden MD Work Phone: Start: 04-16-2023 Heparin assay RADHAMES SNOWDEN Start: 04-16-2023 VENOUS DUPLEX ULTRAS OUND DVT Radhames Snowden MD Work Phone: Start: 04-16-2023 Heparin unfractionat ed [Units/volume] in Platelet poor plasma by Chromogenic method Erwin Back By[employer] Work Phone: Start: 04-16-2023 URINALYSIS WITH REFL EX MICROSCOPIC AND CULTURE RADHAMES ELLIS MARCELLO Start: 04-16-2023 CT ANGIO CHEST FOR PULMONARY EMBOLISM RADHAMES ELLIS MARCELLO Start: 04-16-2023 CT LUMBAR SPINE W IV CONTRAST RADHAMES ELLIS MARCELLO Start: 04-16-2023 Urinalysis complete W Reflex Culture panel - Urine Erwin Back By[employer] Work Phone: Start: 04-16-2023 XR CHEST 1 VIEW RADHAMES JAMES MARCELLO Start: 04-15-2023 aPTT in Blood by Coagulation assay RADHAMES JAMES MARCELLO Start: 04-15-2023 CBC W Auto Different ial panel - Blood RADHAMES JAMES MARCELLO Start: 04-15-2023 Comprehensive metabo lic 2000 panel - Serum or Plasma [facility] Start: 04-15-2023 Creatine kinase [Enz ymatic activity/volume] in Serum or Plasma RADHAMES ELLIS MARCELLO Start: 04-15-2023 D-DIMER, VTE EXCLUSION RADHAMES ELLIS MARCELLO Start: 04-15-2023 Lactate [Moles/volum e] in Serum or Plasma [facility] Start: 04-15-2023 Magnesium [Mass/volu me] in Serum or Plasma RADHAMES ELLIS MARCELLO Start: 04-15-2023 PROTIME-INR RADHAMESMILAN CHILDSCHEM Start: 04-15-2023 TROPONIN I, HIGH SENSITIVITY RADHAMESMILAN SNOWDEN Start: 04-15-2023 Urate [Mass/volume] in Serum or Plasma RADHAMESMILAN SNOWDEN Start: 04-15-2023 Ct angiography chest w/contrast/noncontrast Erwin Back Armas DO Work Phone: Start: 04-15-2023 Ct lumbar spine w/co ntrast material Erwin Back Armas DO Work Phone: Start: 04-15-2023 Radiologic exam ches t single view Eriwn Back Armas DO Work Phone: Start: 04-15-2023 aPTT in Platelet poo r plasma by Coagulation assay Erwin Back Armas DO Work Phone: Start: 04-15-2023 Comprehensive metabo lic panel Erwin Back Armas DO Work Phone: Start: 04-15-2023 Creatine kinase measurement Erwin Back Armas DO Work Phone: Start: 04-15-2023 Fibrin D-dimer FEU [Mass/volume] in Platelet poor plasma Erwni Back Armas DO Work Phone: Start: 04-15-2023 Lactate [Moles/volum e] in Serum or Plasma Erwin Back Armas DO Work Phone: Start: 04-15-2023 Magnesium [Mass/volu me] in Serum or Plasma Erwin Back Armas DO Work Phone: Start: 04-15-2023 Prothrombin time (PT) M ardimitri Back Armas DO Work Phone: Start: 04-15-2023 Troponin I.cardiac p kristen - Serum or Plasma by High sensitivity method Erwin Back Armas DO Work Phone: Start: 04-15-2023 Urate [Mass/volume] in Serum or Plasma Erwin Back Armas DO Work Phone: Start: 04-05-2023 Sars-cov-2 detection by dna/rna Yasir Goss MD Work Phone: Start: 04-05-2023 Basic metabolic pane l calcium total Yasir Goss MD Work Phone: Start: 04-05-2023 CBC W Auto Different ial panel - Blood Yasir Goss MD Work Phone: Start: 04-04-2023 End: 04-04-2023 Basic metabolic panel calcium total Sebastian Roman MD Work Phone: Start: 04-04-2023 CBC W Auto Different ial panel - Blood Sebastian Roman MD Work Phone: Start: 04-04-2023 PULSE OXIMETRY, CONTINUOUS Sebastian Roman MD Work Phone: Start: 04-03-2023 PULSE OXIMETRY, CONTINUOUS Sebastian Roman MD Work Phone: Start: 04-03-2023 PULSE OXIMETRY, CONTINUOUS Sebastian Roman MD Work Phone: Start: 04-03-2023 End: 04-03-2023 Arthrodesis posterior/posterolateral lumbar Rolando Rohl DO Start: 04-03-2023 End: 04-03-2023 Hernandez facetectomy & foramotomy 1 segment lumbar Rolando Rohl DO Start: 04-03-2023 End: 04-03-2023 PA Insert Spine Seg Fix, Post 3-6 Seg Rolando Rohl DO Start: 04-03-2023 End: 04-03-2023 PA Lumbar Spine Fusion Posterolateral Rolando Rohl DO Start: 04-03-2023 End: 04-03-2023 PA Remove Added Spine Lamina, 1 Seg Rolando Rohl DO Start: 04-03-2023 End: 04-03-2023 PA Remove Lumbar Spine Lamina, 1 Seg Rolando Rohl DO Start: 04-03-2023 End: 04-03-2023 PA Spine Fusion Each Add'l Vertebra Rolando Rohl DO Start: 04-03-2023 Antibody screen ROLANDO ROHL Comment on above: Performed By: #### [id number] #### [facility] [address] [place] [address] Start: 04-03-2023 End: 04-03-2023 FUSION LUMBAR POSTERIOR Rolando Hanna DO Work Phone: Start: 04-03-2023 POCT GLUCOSE BLOOD Karen Hanna DO Work Phone: Start: 04-03-2023 Antibody screen rbc each serum technique Rolando Hanna DO Work Phone: Start: 03-18-2023 Antibody screen ROLANDO HANNA Comment on above: Performed By: #### [id number] #### [facility] [address] [place] [address] Start: 11-20-2022 Lipid 1996 panel - S sincere or Plasma Emmanuel Ricketts MD MPH Work Phone: Start: 11-20-2022 Thyrotropin [Units/v olume] in Serum or Plasma Erwin Armas DO Work Phone: Start: 11-15-2022 OPIATE/OPIOID/BENZO PRESCRIPTION COMPLIANCE Emmanuel Ricketts MD MPH Work Phone: Start: 07-29-2022 End: 07-29-2022 Radex spine lumbosacral minimum 4 views Rolando Hanna DO Start: 10-19-2021 Arthrocentesis aspir &/inj small jt/bursa w/o us Amanda Marcelino TUMBLER TENDER Work Phone: Start: 10-18-2021 Thyrotropin [Units/v olume] in Serum or Plasma Emmanuel Ricketts MD MPH Work Phone: Start: 07-16-2021 Arthrocentesis aspir &/inj small jt/bursa w/o us Amanda Marcelino TUMBLER TENDER Work Phone: Start: 02-23-2021 Lipid 1996 panel - S sincere or Plasma Emmanuel Ricketts MD MPH Work Phone: Start: 12-18-2018 MRI of lumbar spine Cory Hanna Work Phone: Start: 11-26-2016 H/O: surgery S/P trigger fi nger release Rolando Hanna DO Work Phone: Decompression of med deysi nerve Andrew Tourlas Excision of ganglion cyst Ko nstantinos Tourlas H/O: surgery S/P trigger fing er release Obdulio Barragan DO Work Phone: H/O: surgery S/P hardware removal Pao Giancarlo Scott BUDGET CONTROLLER Hysterectomy Andrew To urlas Ligation of fallopian tube K onstantinos Tourlas Reduction mammoplasty Konsta ntinos Tourlas Removal of pilonidal cyst Ko nstantinos Tourlas Tonsillectomy and adenoidectomy Andrew Tourlas Plan of Treatment Date Care Activity Detail Author Start: 11-21-2027 Lipid panel Lipid Panel [facility] Start: 02-23-2026 Lipid panel Lipid Panel [facility] Start: 05-03-2025 Medicare Wellness Visit Medicare Wel lness Visit [facility] Start: 05-03-2025 End: 05-03-2025 Patient encounter procedure 05/03/2025 1:15 PM EDT Office Visit [facility] [address] [phone] Kyler Wetzel PA-C [address] [facility], [address] [place] [address] [facility] Start: 12-06-2024 Screening for osteoporosis Bone Density Scan [facility] Start: 07-23-2024 End: 07-23-2024 Patient encounter procedure 07/23/2024 1:45 PM EST Office Visit [facility] Physician [facility] [address] [place] [phone] Kennedy Ulrich Jr., DPM [address] [place] [address] [facility] Physician [facility] Start: 05-03-2024 End: 05-03-2025 CBC panel - Blood by Automated count CBC Lab Routine Benign essential HTN Expected: 05/03/2024 (Approximate), Expires: 05/03/2025 [facility] Work Phone: Comment on above: Expected: 05/03/2024 (Approximate), Expires: 05/03/2025 Start: 05-03-2024 End: 05-03-2025 Comprehensive metabolic 2000 panel - Serum or Plasma Comprehensive Metabolic Panel Lab Routine Benign essential HTN Expected: 05/03/2024 (Approximate), Expires: 05/03/2025 [facility] Work Phone: Comment on above: Expected: 05/03/2024 (Approximate), Expires: 05/03/2025 Start: 05-03-2024 End: 05-03-2025 Lipid 1996 panel - Serum or Plasma Lipid Panel Lab Routine Screening cholesterol level Expected: 05/03/2024 (Approximate), Expires: 05/03/2025 [facility] Service Area Work Phone: Comment on above: Expected: 05/03/2024 (Approximate), Expires: 05/03/2025 Start: 05-03-2024 End: 05-03-2025 TSH with reflex to Free T4 if abnormal TSH with reflex to Free T4 if abnormal Lab Routine Acquired hypothyroidism Expected: 05/03/2024 (Approximate), Expires: 05/03/2025 [facility] Work Phone: Comment on above: Expected: 05/03/2024 (Approximate), Expires: 05/03/2025 Start: 04-20-2024 Christine Mays MRI LUMBAR/THORACIC [facility] Work Phone: Start: 04-05-2024 Falls Risk Assessment Falls Risk Ass essment [facility] Start: 04-05-2024 Hypertension/CHF/CAD Annual BMP Blood Test Hypertension/CHF/CAD Annual BMP Blood Test [facility] Start: 04-03-2024 Social Influencers o f Health Screening Social Influencers of Health Screening [facility] Start: 04-02-2024 End: 04-02-2024 Patient encounter procedure 04/02/2024 9:45 AM EDT Office Visit [facility] [address] [place] [address] Kennedy Ulrich Jr., DPM [address] [phone] [facility] Start: 03-30-2024 JacoboPepe banksha 6 MO F/U PLIF 04/03/23 [facility] Work Phone: Start: 03-26-2024 End: 03-26-2024 Follow-up encounter 03/26/2024 2:30 PM EDT Follow-Up [facility] [address] [phone] Avery Das MD [address] [place] [phone] [facility] Start: 03-21-2024 COVID-19 Vaccine (2022- season) COVID-19 Vaccine ( season) [facility] Start: 03-21-2024 COVID-19 Vaccine ( season) COVID-19 Vaccine ( season) [facility] Start: 03-21-2024 Influenza vaccination [facility] Start: 03-09-2024 Christine Mays MRI LUMBAR/THORACIC [facility] Work Phone: Start: 03-09-2024 End: 03-09-2024 Admission to same day surgery center 03/09/2024 12:00 PM EDT - 03/09/2024 1:23 PM EDT Surgery [facility] [address] [place] [phone] Avery Das MD [address] [place] [phone] Screw removal left shoulder [facility] Comment on above: Screw removal left s houlder Start: 03-09-2024 End: 03-09-2024 Removal implant deep HARDWARE REMOVAL UPPER EXTREMITY Humerus head fracture, left, with routine healing, subsequent encounter 03/09/2024 12:00 PM EDT [facility] Main OR Start: 03-09-2024 Subsequent hospital visit by physician 03/09/2024 12:00 PM EDT Hospital Encounter [facility] [address] [place] [phone] Avery Das MD [address] [place] [phone] [facility] Start: 03-05-2024 End: 03-05-2024 Patient encounter procedure 03/05/2024 9:45 AM EDT [facility] [address] [place] [phone] Rolando Hanna, DO [address] [place], [place] [id number] [facility] Start: 03-05-2024 End: 03-05-2024 Patient encounter procedure [facility] Start: 02-06-2024 End: 02-06-2024 Follow-up encounter [facility] Start: 02-04-2024 [facility] Start: 01-09-2024 End: 01-09-2024 Follow-up encounter 01/09/2024 1:15 PM EDT Follow-Up [facility] [address] [place] [address] Avery Das MD [address] [place] [address] [facility] Start: 01-02-2024 End: 01-02-2024 Patient encounter procedure 01/02/2024 3:40 PM EDT Office Visit [facility] [address] [place] [phone] Emmanuel Ricketts MD MPH [address] [facility], [address] [place] [address] [facility] Start: 12-12-2023 End: 12-12-2023 Follow-up encounter 12/12/2023 1:45 PM EDT Follow-Up [facility] [address] [phone] Avery Das MD [address] [phone] [facility] Start: 12-07-2023 Screening for osteoporosis Bone Density Scan [facility] Start: 11-26-2023 End: 11-26-2023 Patient encounter procedure 11/26/2023 2:30 PM EDT Office Visit [facility] [address] [place] [phone] Kennedy Ulrich Jr., DPM [address] [place] [address] [facility] Start: 11-21-2023 Thyroid stimulating hormone measurement TSH Level [facility] Start: 10-25-2023 Medicare Annual Wellness Visit Medicare Annual Wellness Visit (AWV) [facility] Start: 10-24-2023 History and physical examination, annual for health maintenance Wellness Visit [facility] Start: 10-24-2023 Medicare Wellness Visit Medicare Wel lness Visit [facility] Start: 07-25-2023 End: 07-25-2024 Basic metabolic 2000 panel - Serum or Plasma [facility] Service Area Work Phone: Comment on above: Expected: 07/25/2023 (Approximate), Expires: 07/25/2024 Start: 07-04-2023 End: 07-04-2023 Patient encounter procedure 07/04/2023 3:00 PM EST Office Visit [facility] [address] [place] [phone] Emmanuel Ricketts MD MPH [address] [facility], [address] [place], [place] [phone] [facility] Start: 06-19-2023 End: 06-19-2024 XR Lumbar spine 2 or 3 Views [facility] Service Area Work Phone: Comment on above: Expected: 06/19/2023 , Expires: 06/19/2024 Start: 05-31-2023 COVID-19 Vaccine (2022- season) COVID-19 Vaccine (2022- season) [facility] Start: 05-31-2023 COVID-19 Vaccine (2 - Booster for Disha series) COVID-19 Vaccine (2 - Booster for Disha series) [facility] Start: 03-21-2023 Influenza vaccination Influenza Vacc ine (#1) [facility] Start: 03-04-2023 Adolescent depressio n screening assessment Depression Screening [facility] Start: 03-04-2023 Lipid panel Cholesterol Sc reening (Lipid Panel) [facility] Start: 03-04-2023 Medicare Annual Wellness Visit Medicare Annual Wellness Visit [facility] Start: 03-04-2023 Screening for osteoporosis Osteoporosis Screening (Bone Density Screening) [facility] Start: 02-14-2023 End: 02-14-2023 Patient encounter procedure 02/14/2023 11:00 AM EDT Office Visit [facility] [address] [place] [phone] Emmanuel Ricketts MD MPH [address] [facility], [address] [place] [address] [facility] Start: 12-25-2022 End: 12-25-2022 Patient encounter procedure [facility] Start: 11-25-2022 End: 11-25-2022 Patient encounter procedure 11/25/2022 1:00 PM EDT Office Visit [facility] [address] [place] [phone] Emmanuel Ricketts MD MPH [address] [facility], [address] [place] [address] [facility] Start: 11-15-2022 End: 11-16-2023 Opiate/Opioid/Benzo Extended Prescription Compliance [facility] Service Area Work Phone: Comment on above: Expected: 11/15/2022 (Approximate), Expires: 11/16/2023 Start: 11-11-2022 End: 11-11-2022 ambulatory [facility] Start: 11-07-2022 End: 11-07-2022 ambulatory 11/07/2022 11:30 AM EDT Treatment [facility] [address] [place] [address] Rolando Hanna DO [address] [place] [address] Jamey Phillips PTA [facility] Start: 11-04-2022 End: 11-04-2022 ambulatory 11/04/2022 11:30 AM EDT Treatment [facility] [address] [place] [address] Rolando Hanna DO [address] [place] [address] Andie Ryan PTA [facility] Start: 10-31-2022 End: 10-31-2022 ambulatory 10/31/2022 11:30 AM EDT Treatment [facility] [address] [place] [address] Rolando Hanna DO [address] [place] [address] Jamey Phillips PTA [facility] Start: 10-28-2022 End: 10-28-2022 ambulatory 10/28/2022 11:30 AM EDT Treatment [facility] [address] [place] [address] Rolando Hanna DO [address] [place] [address] Cesar Santos, PT [facility] Start: 10-24-2022 End: 10-24-2022 ambulatory 10/24/2022 11:30 AM EDT Treatment [facility] [address] [place] [address] Rolando Hanna DO [address] [place] [address] Cesar Santos, PT [facility] Start: 10-23-2022 End: 10-24-2023 Lipid 1996 panel - Serum or Plasma Lipid Panel Lab Routine Acquired hypothyroidism Screening for hyperlipidemia Expected: 10/23/2022 (Approximate), Expires: 10/24/2023 [facility] Work Phone: Comment on above: Expected: 10/23/2022 (Approximate), Expires: 10/24/2023 Start: 10-23-2022 End: 10-24-2023 TSH with reflex to Free T4 if abnormal TSH with reflex to Free T4 if abnormal Lab Routine Acquired hypothyroidism Expected: 10/23/2022 (Approximate), Expires: 10/24/2023 [facility] Service Area Work Phone: Comment on above: Expected: 10/23/2022 (Approximate), Expires: 10/24/2023 Start: 10-22-2022 EPV, Provider: Emmanuel Ricketts, Status: Pen, Time: 2:00 PM EPV, Provider: Emmanuel Ricketts, Status: Pen, Time: 2:00 PM [facility] Work Phone: Start: 10-21-2022 End: 10-21-2022 ambulatory 10/21/2022 10:45 AM EDT Treatment [facility] [address] [place] [address] Rolando Hanna DO [address] [place] [address] Cesar Santos, PT [facility] Start: 10-18-2022 Thyroid stimulating hormone measurement TSH Level [facility] Start: 10-17-2022 End: 10-17-2022 ambulatory 10/17/2022 10:00 AM EDT Treatment [facility] [address] [place] [address] Rolando Hanna DO [address] [place] [address] Sonia Lopez, TYLER Discharge Disposition: Home [facility] Start: 10-15-2022 End: 10-15-2022 ambulatory 10/15/2022 Evaluation Rehabilitation Rolando Hanna DO [address] [place] [address] Cesar Santos, PT [facility] Start: 09-25-2022 End: 09-25-2022 Follow-up encounter 09/25/2022 Follow-Up Podiatry Kennedy Ulrich Jr., DPM [address] [place] [address] [facility] Start: 09-13-2022 End: 09-13-2022 Follow-up encounter 09/13/2022 Follow-Up Podiatry Kennedy Ulrich Jr., DPGiancarlo [address] [place] [address] [facility] Start: 09-06-2022 End: 09-06-2022 Patient encounter procedure 09/06/2022 Office Visit Podiatry Kennedy Ulrich Jr., DPM [address] [place] [address] [facility] Start: 08-05-2022 EPV, Provider: Emmanuel Ricketts, Status: Pen, Time: 1:40 PM EPV, Provider: Emmanuel Ricketts, Status: Pen, Time: 1:40 PM [facility] Work Phone: Start: 07-29-2022 Bone Density S can (69414), Body Site: [facility], Added on: [facility] Start: 07-23-2022 FUV, Provider: Emmanuel Ricketts, Status: Pen, Time: 11:20 AM FUV, Provider: Emmanuel Ricketts, Status: Pen, Time: 11:20 AM [facility] Work Phone: Start: 05-07-2022 EPV, Provider: Emmanuel Ricketts, Status: Pen, Time: 12:40 PM EPV, Provider: Emmanuel Ricketts, Status: Pen, Time: 12:40 PM [facility] Work Phone: Start: 04-10-2022 End: 04-10-2022 Patient encounter procedure 04/10/2022 Office Visit Orthopaedics Andrzej Muir MD [address] [place] [address] [facility] Start: 03-21-2022 Influenza vaccination Sequenti al Influenza Vaccine (#1) [facility] Start: 02-04-2022 EPV, Provider: Emmanuel Ricketts, Status: Pen, Time: 10:20 AM EPV, Provider: Emmanuel Ricketts, Status: Pen, Time: 10:20 AM [facility] Work Phone: Start: 01-17-2022 End: 01-17-2022 ambulatory 01/17/2022 Treatment Rehabilitation Emmanuel Ricketts MD [address] [place] [address], [place] [address] Velasquez Najera, TRANSPORTATION COORDINATOR [facility] Start: 01-15-2022 End: 01-15-2022 ambulatory 01/15/2022 Treatment Rehabilitation Emmanuel Ricketts MD [address] [place] [address], [place] [address] Maile Torres, PT [facility] Start: 01-10-2022 End: 01-10-2022 ambulatory 01/10/2022 Treatment Rehabilitation Emmanuel Ricketts MD [address] [place] [address], [place] [address] Jamey Phillips, TRANSPORTATION COORDINATOR [facility] Start: 01-08-2022 End: 01-08-2022 ambulatory 01/08/2022 Treatment Rehabilitation Emmanuel Ricketts MD [address] [place] [address], [place] [address] Cesar Santos, PT [facility] Start: 01-02-2022 End: 01-02-2022 ambulatory 01/02/2022 Treatment Rehabilitation Emmanuel Ricketts MD [address] [place] [address], [place] [address] Jamey Phillips, [facility] Start: 01-01-2022 EPV, Provider: Emmanuel Ricketts, Status: Pen, Time: 10:00 AM EPV, Provider: Emmanuel Ricketts, Status: Pen, Time: 10:00 AM [facility] Work Phone: Start: 12-31-2021 End: 12-31-2021 ambulatory 12/31/2021 Treatment Rehabilitation Emmanuel Ricketts MD [address] [place] [address], [place] [address] Andie Ryan, TRANSPORTATION COORDINATOR [facility] Start: 12-28-2021 End: 12-28-2021 ambulatory 12/28/2021 Treatment Rehabilitation Emmanuel Ricketts MD [address] [place] [address] Velasquez Najera PTA [facility] Start: 12-21-2021 End: 12-21-2021 ambulatory 12/21/2021 Treatment Rehabilitation Emmanuel Ricketts MD [address] [place] [address] Velasquez Najera [facility] Start: 12-18-2021 End: 12-18-2021 ambulatory 12/18/2021 Treatment Rehabilitation Cesar Santos, PT [facility] Start: 12-12-2021 End: 12-12-2021 ambulatory 12/12/2021 Treatment Rehabilitation Emmanuel Ricketts MD [address] [place] [address] Velasquez Najera [facility] Start: 12-07-2021 End: 12-07-2021 ambulatory 12/07/2021 Evaluation Rehabilitation Emmanuel Ricketts MD [address] [place] [address] Maile Torres, PT [facility] Start: 11-06-2021 FUV, Provider: [place], Status: Pen, Time: 3:00 PM FUV, Provider: [place], Status: Hiro, Time: 3:00 PM [facility] Work Phone: Start: 10-02-2021 End: 10-02-2021 Patient encounter procedure 10/02/2021 Office Visit Podiatry Yumiko Villarreal, SARA [address] [place] [address] [facility] Start: 09-17-2021 EPV, Provider: Emmanuel Ricketts, Status: Hiro, Time: 1:20 PM EPV, Provider: Emmanuel Ricketts, Status: Pen, Time: 1:20 PM [facility] Work Phone: Start: 07-23-2021 End: 07-23-2021 Patient encounter procedure 07/23/2021 Office Visit Podiatry Yumiko Villarreal, DPM [address] [place] [address] [facility] Start: 07-06-2021 End: 07-06-2021 Patient encounter procedure 07/06/2021 Office Visit Podiatry Kennedy Ulrich Jr., DPM [address] [place] [address] [facility] Start: 06-18-2021 EPV, Provider: Emmanuel Ricketts, Status: Pen, Time: 12:40 PM EPV, Provider: Emmanuel Ricketts, Status: Pen, Time: 12:40 PM [facility] Work Phone: Start: 05-31-2021 FUV, Provider: Reggie Zendejas, Status: Pen, Time: 11:40 AM FUV, Provider: Reggie Zendejas, Status: Pen, Time: 11:40 AM [facility] Work Phone: Start: 05-30-2021 EPV, Provider: Emmanuel Ricketts, Status: Hiro, Time: 10:00 AM EPV, Provider: Emmanuel Ricketts, Status: Hiro, Time: 10:00 AM [facility] Work Phone: Start: 05-11-2021 MARLYS, Provider: [id number], Status: Pen, Time: 9:00 AM [id number], Provider: [id number], Status: Pen, Time: 9:00 AM [facility] Work Phone: Start: 04-26-2021 FUV, Provider: Reggie Zendejas, Status: Pen, Time: 9:00 AM FUV, Provider: Reggie Zendejas, Status: Pen, Time: 9:00 AM [facility] Work Phone: Start: 04-13-2021 End: 04-13-2021 Patient encounter procedure 04/13/2021 Office Visit Podiatry Kennedy Ulrich Jr., DPGiancarlo [address] [place] [address] [facility] Start: 03-22-2021 End: 03-22-2021 ambulatory 03/22/2021 Treatment Rehabilitation Rolando Hanna DO [address] [place] [address] Velasquez Najera PTA [facility] Start: 03-21-2021 Influenza vaccination Sequenti al Influenza Vaccine (#1) [facility] Start: 03-20-2021 End: 03-20-2021 ambulatory 03/20/2021 Treatment Rehabilitation Rolando Hanna DO [address] [place] [address] Andie Ryan PTA [facility] Start: 03-19-2021 End: 03-19-2021 Patient encounter procedure 03/19/2021 Office Visit Sports Medicine Siddharth Vyas MD [address] [place] [address] [facility] Start: 03-15-2021 NPV, Provider: Guille Fletcher, Status: Pen, Time: 1:00 PM NPV, Provider: Guille Fletcher, Status: Pen, Time: 1:00 PM [facility] Work Phone: Start: 03-15-2021 End: 03-15-2021 ambulatory 03/15/2021 Treatment Rehabilitation Rolando Hanna, [address] [place] [address] Jamey Phillips, [facility] Start: 03-13-2021 End: 03-13-2021 ambulatory 03/13/2021 Treatment Rehabilitation Rolando Hanna, [address] [place] [address] Andie Ryan, [facility] Start: 03-07-2021 End: 03-07-2021 ambulatory [facility] Start: 02-20-2021 FUV, Provider: Emmanuel Ricketts, Status: Pen, Time: 10:00 AM FUV, Provider: Emmanuel Ricketts, Status: Pen, Time: 10:00 AM [facility] Work Phone: Start: 01-25-2021 VNINSUFFBI, Provider : WIL DESIR, Status: Pen, Time: 10:00 AM VNINSUFFBI, Provider: [facility], Status: Pen, Time: 10:00 AM [facility] [facility] Work Phone: Start: 01-03-2021 NPV, Provider: Reggie Zendejas, Status: Pen, Time: 11:00 AM NPV, Provider: Reggie Zendejas, Status: Pen, Time: 11:00 AM [facility] Work Phone: Start: 03-21-2020 Influenza vaccinatio n given Sequential Influenza Vaccine (#1) [facility] Start: 02-21-2020 Scr mammo bi incl cad Mamm - S creening Mammogram w/ Tomosynthesis [facility] Work Phone: Start: 02-21-2020 Xray Bone Density, D exa 1 or More Sites Xray Bone Density, Dexa 1 or More Sites -[facility] Work Phone: Start: 03-21-2019 Influenza vaccination INFLUENZ A VACCINE (Season Ended) [facility] Start: 03-21-2018 Influenza vaccination [facility] Start: 2018 Respiratory Syncytia l Virus Immunization: Risk, 60-74 Risk, or 75+ (1 - 1-dose 75+ series) Respiratory Syncytial Virus Immunization: Risk, 60-74 Risk, or 75+ (1 - 1-dose 75+ series) [facility] Start: 03-21-2017 SEQUENTIAL INFLUENZA VACCINE (#1) SEQUENTIAL INFLUENZA VACCINE (#1) [facility] Work Phone: Start: 11-20-2016 Pneumococcal vaccination Pneumococcal Vaccine Age 65+ (2 of 2 - PCV13) [facility] Start: 11-20-2016 Pneumococcal Vaccine : 65+ Years (2 - PCV) Pneumococcal Vaccine: 65+ Years (2 - PCV) [facility] Start: 11-20-2016 Pneumococcal Vaccine : 65+ Years (2 of 2 - PCV) Pneumococcal Vaccine: 65+ Years (2 of 2 - PCV) [facility] Start: 11-20-2016 Pneumococcal Vaccine : Age 50+ (2 of 2 - PCV) Pneumococcal Vaccine: Age 50+ (2 of 2 - PCV) [facility] Start: 11-20-2016 Pneumococcal Vaccine : Age 65+ (2 - PCV) Pneumococcal Vaccine: Age 65+ (2 - PCV) [facility] Start: 11-20-2016 Pneumococcal Vaccine : Age 65+ (2 of 2 - PCV) Pneumococcal Vaccine: Age 65+ (2 of 2 - PCV) [facility] Start: 2008 Fall risk assessment Falls Risk Asse ssment [facility] Start: 2008 Pneumococcal vaccination [facility] Start: 2008 PNEUMOCOCCAL VACCINE AGE 65+ (1 of 2 - PCV13) PNEUMOCOCCAL VACCINE AGE 65+ (1 of 2 - PCV13) [facility] Work Phone: Start: 2008 Pneumococcal Vaccine : Age 65+ (1 of 1 - PPSV23) Pneumococcal Vaccine: Age 65+ (1 of 1 - PPSV23) [facility] Start: 2003 RSV patient s and/or patients aged 60+ years (1 - 1-dose 60+ series) RSV patients and/or patients aged 60+ years (1 - 1-dose 60+ series) [facility] Start: 2003 Zoster vacc, sc ZOSTER VACCINE [facility] Work Phone: Start: 1993 Administration of herpes zoster vaccine Zoster Vaccines (1 of 2) [facility] Start: 1993 Protein mass conc COLON CANCER SCREENING DISCUSSION [facility] Start: 1993 Zoster vaccine hzv l jose carlos for subcutaneous use ZOSTER (SHINGLES) VACCINE (1 of 2) [facility] Start: 1993 Zoster Vaccines (1 o f 2) Zoster Vaccines (1 of 2) [facility] Start: 1988 Colonoscopy COLORECTAL CAN CER SCREENING DISCUSSION [facility] Start: 1983 Fasting lipid profile LIPID SCREENIN G [facility] Start: 1983 Protein mass conc MAMMOGRAM SC REENING DISCUSSION [facility] Start: 1983 Screening for malign ant neoplasm of breast Mammogram [facility] Start: 1983 Screening mammography MAMMOGRA M SCREENING DISCUSSION [facility] Start: 1965 DTaP/Tdap/Td Vaccine s (1 - Tdap) DTaP/Tdap/Td Vaccines (1 - Tdap) [facility] Start: 1964 Screening for malign ant neoplasm of cervix [facility] Start: 1962 DTaP,Tdap,and Td Vaccines (1 - Tdap) DTaP,Tdap,and Td Vaccines (1 - Tdap) [facility] Start: 1962 Third diphtheria, tetanus and acellular pertussis (DTaP) vaccination TDAP (ADULT) [facility] Start: 1961 Diabetes mellitus screening Diabetes Screening [facility] Start: 1961 Hepatitis C antibody , confirmatory test Hepatitis C Screening [facility] Start: 1961 Hepatitis C screening Hepatitis C Sc reening [facility] Start: 1961 Tetanus vaccination TETANUS [facility] Start: 1959 COVID-19 Vaccine (1) COVID-19 Vaccin e (1) [facility] Start: 1955 Adolescent depressio n screening assessment Depression Screening (PHQ9) [facility] Start: 1955 COVID-19 Vaccine (1) COVID-19 Vaccin e (1) [facility] Start: 1955 Depression screening using PHQ-9 (Patient Health Questionnaire 9) score [facility] Start: 1948 COVID-19 Vaccine (#1) COVID-19 Vacci ne (#1) [facility] Start: 1948 COVID-19 Vaccine (1) COVID-19 Vaccin e (1) [facility] Start: 1946 History and physical examination, annual for health maintenance Wellness Visit [facility] Start: 1946 Medicare Wellness Visit Medicare Wel lness Visit [facility] Start: 1943 COVID-19 VACCINE (#1) COVID-19 VACCI NE (#1) [facility] Start: 1943 Colonoscopy COLONOSCOPY [facility] Work Phone: Start: 1943 DEXA SCAN DEXA SCAN [facility] Work Phone: Start: 1943 Fall risk assessment Falls Risk Asse ssment [facility] Start: 1943 Hepatitis C antibody , confirmatory test HEPATITIS C VIRUS SCREENING [facility] Start: 1943 Medicare Annual Wellness Visit Medicare Annual Wellness Visit (AWV) [facility] Start: 1943 Potassium [Moles/volume] in Serum or Plasma POTASSIUM [facility] Start: 1943 Screening colonoscopy COLONOSCOPY [facility] Start: 1943 Screening for osteoporosis DEXA SCAN DISCUSSION [facility] Start: 1943 Screening mammography Mammogram [facility] Start: 1943 TETANUS EVERY 10 YR TETANUS EVERY 10 YR [facility] Work Phone: Start: 1943 Tetanus vaccination [facility] Start: 1943 Thyroid stimulating hormone measurement TSH [facility] End: 11-28-2023 12 lead ECG ECG 12 Lead ECG Routine Once for 1 Occurrences starting 11/28/2023 until 11/28/2023 [facility] Comment on above: Once for 1 Occurrenc es starting 11/28/2023 until 11/28/2023 End: 11-26-2018 CRP, Inflammation CRP, Inflammation Routine Abnormal laboratory test 1 Occurrences starting 11/25/2017 until 11/26/2018 [facility] End: 11-26-2018 Erythrocyte sedimentation rate Sedimentation Rate Routine Abnormal laboratory test 1 Occurrences starting 11/25/2017 until 11/26/2018 [facility] End: 02-25-2019 MR Cervical Spine Without Contrast MR Cervical Spine Without Contrast Routine Neck pain 1 Occurrences starting 02/25/2018 until 02/25/2019 [facility] [place] ORT SMALL JOINT ARTHROCENTESIS OH ORT SMALL JOINT ARTHROCENTESIS Routine Degenerative arthritis of finger, left 03/04/2017 3:33 PM EDT [facility] Work Phone: OPIATE/OPIOID/BENZO PRESCRIPTION COMPLIANCE OPIATE/OPIOID/BENZO PRESCRIPTION COMPLIANCE Lab Routine Chronic neck pain Other chronic pain Spinal stenosis of lumbar region with neurogenic claudication 11/15/2022 5:15 PM EDT [facility] Work Phone: End: 11-26-2018 Rheumatoid factor Rheumatoid factor Routine Elevated rheumatoid factor 1 Occurrences starting 11/25/2017 until 11/26/2018 [facility] End: 11-28-2023 Serum immunofixation [facility] Work Phone: Comment on above: Once for 1 Occurrenc es starting 11/28/2023 until 11/28/2023 End: 11-25-2023 US Abdomen limited [facility] Work Phone: Comment on above: Once for 1 Occurrenc es starting 11/25/2023 until 11/25/2023 End: 11-25-2018 XR Hand Left 2 Views XR Hand Left 2 Views Routine Polyarthralgia 1 Occurrences starting 11/25/2017 until 11/25/2018 [facility] End: 11-25-2018 XR Hand Right 2 Views XR Hand Right 2 Views Routine Polyarthralgia 1 Occurrences starting 11/25/2017 until 11/25/2018 [facility] End: 11-25-2018 XR Wrist Left 2 Views XR Wrist Left 2 Views Routine Polyarthralgia 1 Occurrences starting 11/25/2017 until 11/25/2018 [facility] End: 11-25-2018 XR Wrist Right 2 Views XR Wrist Right 2 Views Routine Polyarthralgia 1 Occurrences starting 11/25/2017 until 11/25/2018 [facility] Immunizations Immunization Date Immunization Notes Care Provider Judit ramírez 06-25-2022 Fluzone High-Dose Quadrivalent 0.7 ML Intramuscular Suspension Prefilled Syringe; Translations: [Fluzone High-Dose Quadrivalent 0.7 ML Intramuscular Suspension Prefilled Syringe] Emmanuel Ricketts Work Phone: [facility] Work Phone: Comment on above: Series: 06-25-2022 influenza, high dose seasonal, preservative-free Emmanuel Ricketts MD MPH Work Phone: [facility] Work Phone: 06-25-2022 influenza virus vaccine, unspecified formulation Rolando Hanna Work Phone: [facility] 06-18-2021 Fluzone High-Dose Quadrivalent 0.7 ML Intramuscular Suspension Prefilled Syringe; Translations: [Fluzone High-Dose Quadrivalent 0.7 ML Intramuscular Suspension Prefilled Syringe] Emmanuel Ricketts Work Phone: [facility] Work Phone: Comment on above: Series: 06-18-2021 influenza, seasonal, injectable Emmanuel Ricketts MD MPH Work Phone: [facility] Work Phone: 04-28-2020 influenza, seasonal, injectable Emmanuel Ricketts MD MPH Work Phone: [facility] Work Phone: 04-28-2020 Fluzone High-Dose Quadrivalent 0.7 ML Intramuscular Suspension Prefilled Syringe; Translations: [Fluzone High-Dose Quadrivalent 0.7 ML Intramuscular Suspension Prefilled Syringe] Emmanuel Ricketts [facility] Work Phone: Comment on above: Series: 07-20-2018 influenza, high dose seasonal, preservative-free Emmanuel Ricketts Work Phone: [facility] Work Phone: 07-20-2018 influenza, injectabl e, quadrivalent, preservative free Emmanuel Ricketts MD MPH Work Phone: [facility] Work Phone: 05-29-2017 influenza, injectabl e, quadrivalent, preservative free Emmanuel Mu Betancourt Mallapareddi Work Phone: [facility] Work Phone: 11-21-2015 pneumococcal polysaccharide vaccine, 23 valent Emmanuel Nag S Mallapareddi Work Phone: [facility] Work Phone: Comment on above: Series: 11-21-2015 pneumococcal polysaccharide vaccine, 23 valent Tr Drummond MD [facility] Work Phone: 04-26-2015 influenza virus vaccine, unspecified formulation Kennedy Ulrich Jr., DPM Work Phone: [facility] 05-03-2014 influenza, seasonal, injectable Kennedy Mojgan Jr., DPM Work Phone: [facility] 04-15-2013 influenza virus vaccine, unspecified formulation Kennedy Mojgan Jr., DPM Work Phone: [facility] Payers Date Payer Category Payer Self-pay 2015 Medicare [id number] 2015 Medicare [id number] 2015 Medicare HMO ANTHEM MEDIBLUE ESSENTIAL/PLUS/CONNECT/SNP HMO [id number] 2015 Medicare [id number] 2.16.840.1.194995.3.249.13 1943 Unknown [id number] 2.16.840.1.843587.3.579.2.902 1943 Unknown [id number] 2.16840.1.118978.3.579.2.356 1943 Unknown [id number] 2.16.840.1.988168.3.579.2.356 1943 Unknown [id number] 2.16.840.1.550250.3.579.2.356 1943 Unknown [id number] 2.16.840.1.925109.3.579.2.356 1943 Unknown [id number] 2.16.840.1.542603.3.579.2.114 3 1943 Unknown [id number] 2.16.840.1.677731.3.579.2.114 3 1943 Unknown [id number] 2.16.840.1.349674.3.579.2.106 9 1943 Unknown [id number] 2.16.840.1.764435.3.579.2.106 9 1943 Unknown [id number] 2.16.840.1.029083.3.579.2.106 9 1943 Unknown [id number] 2.16.840.1.713827.3.579.2.124 3 1943 Unknown [id number] 2.16.840.1.637913.3.579.2.124 3 1943 Unknown [id number] 2.16.840.1.510170.3.579.2.903 1943 Unknown [id number] 2.16.840.1.865535.3.579.2.903 1943 Unknown [id number] 2.16.840.1.710244.3.579.2.903 1943 Unknown [id number] 2.16.840.1.552861.3.579.2.90 1943 Unknown [id number] 2.16.840.1.509185.3.579.2.90 1943 Unknown [id number] 2.16.840.1.154090.3.579.2.124 5 1943 Unknown [id number] 2.16.840.1.599975.3.579.2.124 5 1943 Unknown [id number] 2.16.840.1.340214.3.579.2. 1943 Unknown [id number] 2.16.840.1.699235.3.579.2. 1943 Unknown [id number] 2.16.840.1.871102.3.579.2.3 1943 Unknown [id number] 2.16.840.1.383902.3.579.2. 1943 Unknown [id number] 2.16.840.1.189941.3.579.2.903 1943 Unknown [id number] 2.16.840.1.260037.3.579.2.90 1943 Unknown [id number] 2.16.840.1.127438.3.579.2.903 1943 Unknown [id number] 2.16.840.1.060423.3.579.2.90 1943 Unknown [id number] 2.16.840.1.159032.3.579.2.903 1943 Unknown [id number] 2.16.840.1.919187.3.579.2.903 1943 Unknown [id number] 2.16.840.1.049766.3.579.2.903 1943 Unknown [id number] 2.16.840.1.410667.3.579.2.903 1943 Unknown [id number] 2.16.840.1.123718.3.579.2.903 1943 Unknown [id number] 2.16.840.1.859782.3.579.2.124 4 1943 Unknown [id number] 2.16.840.1.871624.3.579.2.124 4 Unknown Unknown [id number] 2.16.840.1.269795.3.579.2.462 Social History Date Type Detail Facility Start: 11-25-2017 End: 02-06-2024 Tobacco smoking status NHIS Former smoker [facility] Work Phone: Start: 11-25-2017 End: 11-26-2023 Cigarettes smoked current (pack per day) - Reported [facility] Work Phone: Comment on above: Quit 50 yrs ago; Start: 1943 Sex Assigned At Not on file O [facility] Work Phone: Start: 02-25-2018 End: 02-06-2024 Tobacco use and exposure Never used [facility] Start: 02-25-2018 End: 09-15-2024 Alcohol intake Current drinker of alcohol (finding) [facility] Start: 02-25-2018 Alcohol Comment wine rarely 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 (finding) [facility] Start: 09-25-2022 End: 11-26-2023 Tobacco use panel [facility] Start: 03-19-2021 Gender identity Identifies as female gender (finding) [facility] Start: 03-19-2021 Sexual orientation Heterosexua l (finding) [facility] Start: 10-23-2022 End: 01-30-2024 Alcohol intake Lifetime non-drinker (finding) [facility] Work Phone: Start: 04-03-2023 Alcohol intake Ex-drinker (finding) [employer] [place] Are you worried that in the next 2 months you may not have stable housing? No [facility] Has the electric, gas, oil, or water company threatened to shut off services in your home in past 12Mo No [facility] (I/We) worried whether (my/our) food would run out before (I/we) got money to buy more. Never true [facility] Start: 02-04-2024 End: 03-30-2024 Tobacco smoking status NHIS Unknown if ever smoked [facility] Start: 02-04-2024 Alcohol intake Alcohol Use Details [facility] Sex Assigned At Female [facility] Work Phone: Start: 03-14-2021 Sexual Orientation Choose not to disclose [facility] NEGATED: Highlighted row - - [facility] Work Phone: Medical Equipment Procedure Code Equipment Code Equipment Origin al Text Equipment Identifier Dates Bone Graft Spine Infuse Lg Ii - [id number] - [id number], [id number] FDA Start: 04-03-2023 Duraseal Exact Spine Sealant 5ml W Applicator - Sna - [id number], [id number] FDA Start: 04-03-2023 Shravan Ccm Ns Curv 5.5x70mm - Sna - [id number] Start: 04-03-2023 Plate 3.5 X 90mm 3hl Lcp Prox Humerus Std - [id number] Start: 11-26-2023 Comment on above: Description: Load 01 [id number] Screw 3.5x26mm Cortex Self-Tap - [id number] Start: 11-26-2023 Comment on above: Description: Load 01 [id number] Screw 3.5 X 50mm Locking Self-Tap Strdrv Rec - [id number] Start: 11-26-2023 Comment on above: Description: Load 01 [id number] Screw 3.5 X 30mm Locking Self-Tap Strdrv Rec - [id number] Start: 11-26-2023 Comment on above: Description: Load 01 [id number] Screw 3.5 X 45mm Locking Self-Tap Strdrv Rec - [id number] Start: 11-26-2023 Comment on above: Description: Load 01 [id number] Screw 3.5 X 24mm Cortex Self-Tap - [id number] Start: 11-26-2023 Comment on above: Description: Load 01 [id number] Screw 3.5 X 45mm Locking Self-Tap Strdrv Rec - [id number] Start: 03-09-2024 Comment on above: Description: Load 01 [id number] Functional Status Date Assessment Result Facility 03-30-2024 Pain severity - 0-10 verbal numeric rating [Score] - Reported 2/10 [facility] 02-04-2024 Pain severity - 0-10 verbal numeric rating [Score] - Reported 9/10 [facility] NEGATED: Highlighted row Functional performance Functional status health issues are not documented Disease [facility] Work Phone: Mental Status Date Assessment Result Facility NEGATED: Highlighted row Cognitive function [Interpretation] Cognitive status health issues are not documented Disease [facility] Work Phone: Clinical Notes 11-07-2016 to 09-15-2024 Kennedy Ulrich Jr., DPM - 09/15/2024 11:01 AM Kennedy Joshi Jr., DP - 06/09/2024 11:07 AM ESTPatient InstructionsAssessment & Plan Note - Kyler Wetzel PA-C - 05/03/2024 12:45 PM EDT Note Date & Type Note Facility 09-15-2024 Note Left foot callus Patient is a pleasant 79-year-old female following up today on plantar left foot callus. She states it is going very badly. She states it is extremely painful and has a big callus there that she has been putting Neosporin on for the last 2 days. Physical Vascular: DP PT pulses poorly palpable. CFT is fair minimal edema. Derm: No erythema. Does have a large lifted callus with surrounding epithelial loss. No streaking no fluctuance or crepitation. Neuro: Normal. Musculoskeletal: Muscle strength is 5 out of 5. Can easily wiggle toes. Assessment plan: Patient is a pleasant female with a pitted callus though now with acute tinea pedis. Still need to proceed with cantharidin but need to wait until her skin improves. Start topical Lotrisone for 2 weeks. Follow-up in 2 to 4 weeks to consider left foot cantharidin. AUTHENTICATED BY KENNEDY ULRICH JR., ON 09/15/2024 11:02:36 [facility] 09-15-2024 History of Present illness Narrative Left foot callus Patient is a pleasant 79-year-old female following up today on plantar left foot callus. She states it is going very badly. She states it is extremely painful and has a big callus there that she has been putting Neosporin on for the last 2 days. Physical Vascular: DP PT pulses poorly palpable. CFT is fair minimal edema. Derm: No erythema. Does have a large lifted callus with surrounding epithelial loss. No streaking no fluctuance or crepitation. Neuro: Normal. Musculoskeletal: Muscle strength is 5 out of 5. Can easily wiggle toes. Assessment plan: Patient is a pleasant female with a pitted callus though now with acute tinea pedis. Still need to proceed with cantharidin but need to wait until her skin improves. Start topical Lotrisone for 2 weeks. Follow-up in 2 to 4 weeks to consider left foot cantharidin. documented in this encounter [facility] 06-09-2024 Note Plantar left foot ca llus Patient is a pleasant 79-year-old female who comes in today with concern for painful callus. For what ever reason she states that she was not able to get the urea from drugstore it was $200 but she did not get it [id number]. Still with pain states it feels the same. Physical Vascular: Pedal pulses are poorly palpable. CFT is fair no edema. Hyperkeratosis plantar fourth MPJ no open wounds or ulcers around it, the previous tearing is fully healed at this point. Vascular skeletal: Does have hammering to the lesser digits primarily digits 3 and 4 which is causing generally the callus. Assessment plan: Patient is a pleasant female with hyperkeratosis and callus with hammertoe. -. Did have her get this from [employer] and wrote this down as well for her. Could consider getting on [employer]. Follow-up as needed for this or any new issues. AUTHENTICATED BY KENNEDY ULRICH JR., ON 06/09/2024 11:08:10 [facility] 06-09-2024 History of Present illness Narrative Plantar left foot callus Patient is a pleasant 79-year-old female who comes in today with concern for painful callus. For what ever reason she states that she was not able to get the urea from drugstore it was $200 but she did not get it [id number]. Still with pain states it feels the same. Physical Vascular: Pedal pulses are poorly palpable. CFT is fair no edema. Hyperkeratosis plantar fourth MPJ no open wounds or ulcers around it, the previous tearing is fully healed at this point. Vascular skeletal: Does have hammering to the lesser digits primarily digits 3 and 4 which is causing generally the callus. Assessment plan: Patient is a pleasant female with hyperkeratosis and callus with hammertoe. -. Did have her get this from [employer] and wrote this down as well for her. Could consider getting on [employer]. Follow-up as needed for this or any new issues. documented in this encounter [facility] 06-09-2024 Instructions Kennedy Ulrich Jr., DPM - 06/09/2024 10:56 AM EST Urea 40% cream Apply twice per day for 90 days documented in this encounter [facility] 05-03-2024 Evaluation + Plan note Associated Problem(s): Benign essential HTN Orders: losartan (Cozaar) 50 mg tablet; Take 1 tablet (50 mg) by mouth once daily at bedtime. triamterene-hydrochlorothiazid (Maxzide) 75-50 mg tablet; Take 1 tablet by mouth once daily. CBC; Future Comprehensive Metabolic Panel; Future [facility] Work Phone: 05-03-2024 Evaluation + Plan note Associated Problem(s): Chronic pain Orders: meloxicam (Mobic) 7.5 mg tablet; Take 1 tablet (7.5 mg) by mouth once daily as needed for moderate pain (4 - 6). [facility] Work Phone: 05-03-2024 Evaluation + Plan note Associated Problem(s): Temporal arteritis (Multi) [facility] Work Phone: 05-03-2024 Evaluation + Plan note Associated Problem(s): Hypothyroidism Orders: TSH with reflex to Free T4 if abnormal; Future [facility] Work Phone: 05-03-2024 Evaluation + Plan note Associated Problem(s): Chronic low back pain [facility] Work Phone: 05-03-2024 Evaluation + Plan note Associated Problem(s): Osteopenia T [facility] Work Phone: 05-03-2024 History of Present illness Narrative Subjective Reason for Visit: Christine Mays is an 79 y.o. female here for a Medicare Wellness visit. Past Medical, Surgical, and Family History reviewed and updated in chart. Reviewed all medications by prescribing practitioner or clinical pharmacist (such as prescriptions, OTCs, herbal therapies and supplements) and documented in the medical record. HPI HTN: BP in office today 138/76. BP at home similar, compliant with current regimen. Denies symptoms currently. BACK PAIN: Stable on Meloxicam, no SE. HYPOTHYROID: Compliant with levo 112, no SE. INSOMNIA: Stable on trazodone, no SE. RESTLESS LET: Stable on gabapentin no SE. GERD: Has been taking Protonix, was started on this last hospitalization. Hx of temporal arteritis years ago, no issues since. DEXA 2022 showed osteopenia, she is taking Vit D daily, will start calcium soon. Patient Care Team: Kyler Wetzel PA-C as PCP - General (Family Medicine) Nic Hernández MD as PCP - [employer] PCP Review of Systems Constitutional: Negative. Respiratory: Negative. Cardiovascular: Negative. Gastrointestinal: Negative. Objective Vitals: BP 138/76 Pulse 66 Ht 1.473 m (4' 10") Wt 65.3 kg (144 lb) SpO2 97% BMI 30.10 kg/m Physical Exam Constitutional: General: She is not in acute distress. Appearance: Normal appearance. She is not ill-appearing. HENT: Head: Normocephalic and atraumatic. Eyes: Extraocular Movements: Extraocular movements intact. Conjunctiva/sclera: Conjunctivae normal. Cardiovascular: Rate and Rhythm: Normal rate. Pulmonary: Effort: Pulmonary effort is normal. Abdominal: General: There is no distension. Musculoskeletal: General: Normal range of motion. Cervical back: Normal range of motion. Skin: General: Skin is warm and dry. Neurological: General: No focal deficit present. Mental Status: She is alert and oriented to person, place, and time. Psychiatric: Mood and Affect: Mood normal. Behavior: Behavior normal. Thought Content: Thought content normal. Judgment: Judgment normal. Assessment & Plan Benign essential HTN Orders: losartan (Cozaar) 50 mg tablet; Take 1 tablet (50 mg) by mouth once daily at bedtime. triamterene-hydrochlorothiazid (Maxzide) 75-50 mg tablet; Take 1 tablet by mouth once daily. CBC; Future Comprehensive Metabolic Panel; Future Chronic pain syndrome Orders: meloxicam (Mobic) 7.5 mg tablet; Take 1 tablet (7.5 mg) by mouth once daily as needed for moderate pain (4 - 6). Routine general medical examination at health care facility Orders: 1 Year Follow Up In Primary Care - Wellness Exam; Future Temporal arteritis (Multi) Acquired hypothyroidism Orders: TSH with reflex to Free T4 if abnormal; Future Screening cholesterol level Orders: Lipid Panel; Future Chronic low back pain, unspecified back pain laterality, unspecified whether sciatica present Osteopenia, unspecified location Stop Protonix, will let me know if heartburn returns. Stop Atenolol, increase losartan to 50mg daily. She will let me know if BP not stable. No other medication changes today. Fasting labs soon. Follow up 6 months or sooner prn. documented in this encounter [facility] Work Phone: 05-03-2024 Miscellaneous Notes Associated Problem(s): Benign essential HTN Orders: losartan (Cozaar) 50 mg tablet; Take 1 tablet (50 mg) by mouth once daily at bedtime. triamterene-hydrochlorothiazid (Maxzide) 75-50 mg tablet; Take 1 tablet by mouth once daily. CBC; Future Comprehensive Metabolic Panel; Future Associated Problem(s): Chronic pain Orders: meloxicam (Mobic) 7.5 mg tablet; Take 1 tablet (7.5 mg) by mouth once daily as needed for moderate pain (4 - 6). Associated Problem(s): Temporal arteritis (Multi) Associated Problem(s): Hypothyroidism Orders: TSH with reflex to Free T4 if abnormal; Future Associated Problem(s): Chronic low back pain Associated Problem(s): Osteopenia documented in this encounter [facility] Work Phone: 04-02-2024 History of Present illness Narrative Plantar left foot callus Patient is a pleasant 79-year-old female who comes in today with concern for painful callus. She states that she has been applying the horseshoe pad around this to try to protect it however keeps getting some skin tearing and is getting irritated. States that she is trying to get this feel better without any tearing. Physical Vascular: Pedal pulses are poorly palpable. CFT is fair no edema. Hyperkeratosis plantar fourth MPJ no open wounds or ulcers around it, the previous tearing is fully healed at this point. Vascular skeletal: Does have hammering to the lesser digits primarily digits 3 and 4 which is causing generally the callus. Assessment plan: Patient is a pleasant female with hyperkeratosis and callus with hammertoe. -At this time, the prescribed topical urea to apply twice per day to [facility]. For some reason this is unattainable at [facility], could consider getting on [employer]. Follow-up as needed for this or any new issues. documented in this encounter [facility] 04-02-2024 Note Plantar left foot ca llus Patient is a pleasant 79-year-old female who comes in today with concern for painful callus. She states that she has been applying the horseshoe pad around this to try to protect it however keeps getting some skin tearing and is getting irritated. States that she is trying to get this feel better without any tearing. Physical Vascular: Pedal pulses are poorly palpable. CFT is fair no edema. Hyperkeratosis plantar fourth MPJ no open wounds or ulcers around it, the previous tearing is fully healed at this point. Vascular skeletal: Does have hammering to the lesser digits primarily digits 3 and 4 which is causing generally the callus. Assessment plan: Patient is a pleasant female with hyperkeratosis and callus with hammertoe. -At this time, the prescribed topical urea to apply twice per day to [facility]. For some reason this is unattainable at [facility], could consider getting on [employer]. Follow-up as needed for this or any new issues. AUTHENTICATED BY KENNEDY ULRICH JR., ON 04/02/2024 10:15:53 [facility] 04-02-2024 Instructions Kennedy Ulrich Jr., DPM - 04/02/2024 10:11 AM EDT Topical Urea 40% lotion. Ok to purchase on [employer] if too expensive at [facility] documented in this encounter [facility] 03-27-2024 Note Christine Jose Jacobo come s in today for followup of left shoulder hardware removal. She said that did the trick. She said she feels great now. Taking the screws out has helped immensely. PHYSICAL EXAMINATION General: Today, she is awake, alert, oriented x3. Extremities: She has near full range of motion. Shoulder wound is healed. No signs of infection. No DVT signs or symptoms in the left upper extremity. IMPRESSION Two weeks status post hardware removal, left shoulder. PLAN She will do activities as tolerated. I will see her on a p.r.n. basis. I did a narcotic review. Last medication was gabapentin on 02/26/2024. Tramadol on 02/02/2024 was noted. AUTHENTICATED BY AVERY DAS, ON 03/27/2024 09:57:06 [facility] 03-27-2024 History of Present illness Narrative Christine Mays comes in today for followup of left shoulder hardware removal. She said that did the trick. She said she feels great now. Taking the screws out has helped immensely. PHYSICAL EXAMINATION General: Today, she is awake, alert, oriented x3. Extremities: She has near full range of motion. Shoulder wound is healed. No signs of infection. No DVT signs or symptoms in the left upper extremity. IMPRESSION Two weeks status post hardware removal, left shoulder. PLAN She will do activities as tolerated. I will see her on a p.r.n. basis. I did a narcotic review. Last medication was gabapentin on 02/26/2024. Tramadol on 02/02/2024 was noted. documented in this encounter [facility] 03-26-2024 Telephone encounter Note Patient requested refill for pain medication. Surgery 03/09 screw removal left shoulder , last fill 02/01. [facility] 03-26-2024 Miscellaneous Notes Patient requested refill for pain medication. Surgery 03/09 screw removal left shoulder , last fill 02/01. documented in this encounter [facility] 03-06-2024 Note Christine [facility] for presurgical consultation regarding her hardware removal of her left shoulder. If you will recall, 3 months ago we did an open reduction and internal fixation of her left humerus. Unfortunately, with her activities increasing and therapy increasing, she has 2 of the screws that are loose causing irritation in the subdeltoid space. We are going to proceed forward with hardware removal. PAST MEDICAL HISTORY Anxiety, hypothyroidism, migraine headaches, spinal stenosis. PAST SURGICAL HISTORY She had breast surgery, cholecystectomy, foot surgery, hysterectomy, pilonidal cyst, left hand surgery. She has had left proximal humerus ORIF. SOCIAL HISTORY She is a former smoker, does not smoke currently. Drinks on a social basis. FAMILY HISTORY Heart disease. ALLERGIES Nickel and codeine. MEDICATIONS Regimen includes Tylenol, Tenormin, Neurontin, Robbins, Synthroid, Cozaar, p.r.n. Mobic, Protonix Desyrel, Maxzide. X-RAYS Reveal a proximal humerus fracture. There are 2 screws of the proximal screws that are backed out. Remainder of the screws appear to be intact. PHYSICAL EXAMINATION Chest: Benign. Abdomen: Benign. Cardiac: Benign. General: Ambulates without assistive device. She is by herself today. Extremities: Left upper extremity neurologically intact, 2+ pulses. Full range of motion throughout the hand, wrist, elbow. Left shoulder at this point in time, she has tenderness to palpation over 2 screws that are in the subdeltoid space, 80 degrees of abduction, 160 degrees of forward flexion, 4+/5 strength in rotator cuff. IMPRESSION Three months status post open reduction and internal fixation of left proximal humerus. PLAN We are going to remove these 2 proximal screws. I do not believe that trying to reinsert them is valid. I believe we have enough hardware remaining. We will remove these 2 screws. She is in agreement. I have discussed all of the treatment options with the patient. Patient part of the entire decision-making process. Mental health status was assessed. Narcotic review was performed. Last listed medication was gabapentin on 02/26/2024. AUTHENTICATED BY AVERY DAS, ON 03/07/2024 09:39:34 [facility] 02-07-2024 Note Christine comes in toda y. Now she is 2-1/2 months status post ORIF right proximal humerus fracture. At this time, the patient is doing well. Does have a little bit of pain with abduction. Wound is clean, dry, intact. No erythema. No drainage. She has 90 degrees of abduction, 160 degrees of forward flexion. Wound is healed. X-RAYS Show no change in the hardware. However, there are 2 screws out of the proximal locking plate that have backed out approximately 5 mm. IMPRESSION 2-1/2 months status post ORIF left proximal humerus fracture. PLAN We potentially will remove these 2 proximal screws in the future. She is going to continue her home exercise program and I will see her in 6 weeks. I did a narcotic checkup. Her last listed medication was Robbins on 01/23/2024. AUTHENTICATED BY AVERY DAS, ON 02/09/2024 13:46:00 [facility] 01-30-2024 History of Present illness Narrative Subjective Patient ID: Christine Mays is a 78 y.o. female who presents for Follow-up (Pt is here today for 2 week FUV. TSH needs ordered. Lipids good 11/21/27. Dexa good 12/06/24. Reports her Home Health Nurse told her that her BP has been running high. It was 168/90 yesterday. Did bring in BP log. ). HPI Patient reports that her blood pressure has been high at home recently. Denies shortness of breath, chest pain and palpitations. She has stopped taking atenolol since November. Reports that she was recommended to stop this at the hospital. Reports that her BP was better when she was taking it. Restarting atenolol along with other medication. Still has room to increase on losartan. If pulse drops when she takes atenolol then will increase the dose of losartan and dc atenolol. Reports that she has a lot of back pain. She will call with spine surgeon. Currently has significant pain. She will try topical gels and NSAIDs. Review of Systems ROS negative except discussed above in HPI. Vitals: 01/30/24 0930 BP: 168/78 Pulse: 75 SpO2: 97% Objective Physical Exam Constitutional: Appearance: Normal appearance. Cardiovascular: Rate and Rhythm: Normal rate and regular rhythm. Pulmonary: Effort: Pulmonary effort is normal. Breath sounds: Normal breath sounds. Neurological: Mental Status: She is alert. Assessment/Plan Christine was seen today for follow-up. Diagnoses and all orders for this visit: Benign essential HTN (Primary) Spinal stenosis of lumbar region with neurogenic claudication Follow up in 3 months. Discussed with patient that I will be leaving [facility] at the end of February. Discussed options to transfer care. Emmanuel Ricketts MD MPH documented in this encounter [facility] Work Phone: 01-09-2024 Note She is now 6 weeks s tatus post ORIF left proximal humerus fracture. She is doing very well. She is in physical therapy. She says when she fell, she hurt her whole left side including her ribs as well as her back. She has no cane, no walker today. She is by herself. Her is at home. Her left shoulder wound is clean, dry, intact. No erythema. No drainage. She has 85 degrees of abduction, 160 degrees of forward flexion, 4+/5 strength throughout the shoulder girdle. X-RAYS X-rays of the left proximal humerus reveals no change in the alignment of the fracture. There is early callus noted. There are 2 screws out of 10 of the locking screws that appear to have backed out approximately 5 mm. IMPRESSION Six weeks ORIF left proximal humerus fracture. PLAN At this point in time, we are going to watch these 2 screws closely. At some point in time, we may have to remove these two, however, overall she is doing fantastic. She will finish up her physical therapy and I will see her in 6 weeks for 3 month checkup. I did a narcotic review. Last medication was Robbins on 01/03/2024. AUTHENTICATED BY AVERY DAS, ON 01/10/2024 08:39:23 [facility] 01-02-2024 Telephone encounter Note Patient requested refill for pain medication. Surgery 11/25 ORIF left proximal humerus, last fill 12/25. [facility] 01-02-2024 Miscellaneous Notes Patient requested refill for pain medication. Surgery 11/25 ORIF left proximal humerus, last fill 12/25. documented in this encounter [facility] 12-26-2023 History of Present illness Narrative Phone message from home PT/Health patient cancelled visit today. Not feeling well. documented in this encounter [facility] 12-19-2023 Telephone encounter Note Patient requested refill for pain medication. Surgery 5/ ORIF proximal humerus, last fill 12/11. [facility] 12-19-2023 Miscellaneous Notes Patient requested refill for pain medication. Surgery 5/ ORIF proximal humerus, last fill 12/11. documented in this encounter [facility] 12-12-2023 Note Christine comes [facility] for 2 week followup of her ORIF of her left proximal humerus fracture. Christine at this point in time is doing fairly well. She is at home. Wound is clean, dry, intact. No erythema. No drainage. No lymphangitis. No cellulitis. No DVT signs or symptoms. She has no cane, no walker, no sling. She has about 80 degrees of abduction, 100 degrees of forward flexion. X-RAYS X-rays of the left shoulder, 3 views show proximal humeral plate. The alignment of the humeral head, neck angle is unchanged. However, there does appear to be some backing out of a few of the screws proximally from the locking mechanism. However, nothing concerning. There is still good alignment, good purchase in the head. IMPRESSION Two weeks open reduction, internal fixation left proximal humerus. PLAN We are going to continue home exercises, home physical therapy, local wound care. I will see her in a month for x-rays. She did request a refill on her pain medication. I did a narcotic review. Her last listed medication was Robbins on 12/03/2023. I will see her in a month. AUTHENTICATED BY AVERY DAS, ON 12/13/2023 11:16:04 [facility] 11-29-2023 Note DISCHARGE SUMMARY Patient: Christine Mays Date of : 1945 Site: [facility] Family Provider: Emmanuel Ricketts MD Admit Date: 11/25/2023 Discharge Date/Time: 11/29/23 Afternoon Disposition: Home Health Care Services Clinical Summary Hospital Course: Christine Mays is a 78 y.o. female patient of Emmanuel Ricketts MD with a history of anxiety, degenerative disc disease who presented to the [place] ED as a level two trauma. She lost her balance falling onto her left side. She did hit her head, no LOC, and felt immediate pain to her left shoulder. She underwent operative repair with Dr. Das on 11/26/23. She worked with therapies and is appropriate for home health care which has been set up for her. The patient's hospitalization was complicated by orthostatic hypotension resulting in a presyncopal state. She was evaluated by cardiology and an echocardiogram was obtained. The patient's diuretics and beta-hosea have been held at time of discharge and she was started on losartan. The patient had negative orthostatics on the day of discharge. She is stable for discharge at this time with follow-up with orthopedic surgery and her primary care provider. Discharge Diagnoses: INJURIES: Left displaced surgical neck of the proximal humerus Ecchymosis of left scalp ASSESSMENT & PLAN/ACTIVE MEDICAL PROBLEMS: Closed head injury - hit head, no LOC. CT H negative, MRI C spine shows degenerative disc disease without evidence of spinal cord injury. Left humerus fx s/p ORIF. - pain controlled, home health care, WBAT. - f/u with Dr. Das in his # office in 2 weeks for staple removal Orthostatic hypotension - echocardiogram with normal EF. Mild LV hypertrophy grade II diastolic dysfunction. - seen by cardiology 11/27 and Dc'd atenolol- this was held for several doses (11/27 & 11/26), SOCORRO kong. -Improvement today with negative orthostatics -Encouraged to intake more protein in her diet, mobilize slowly when changing positions, will need outpatient follow-up with PCP ___ Surgeries: 11/26/23 ORIF left proximal humerous Consults: Procedures Inpatient consult to Orthopedic Surgery Inpatient consult to Care Management Inpatient Consult to Osteoporosis Management Inpatient consult to Home Health Hub Inpatient consult to Cardiology Allergies: Nickel and Codeine Discharge Diet: Resume home diet Condition: Good Discharge Medications: Discharge Medications New Medications Details HYDROcodone-acetaminophen 5-325 mg per tablet Commonly known as: NORCO Take 1 (one) tablet by mouth every 6 (six) hours as needed for pain (Days supply per fill: 5) . Quantity: 20 tablet losartan 25 MG tablet Commonly known as: COZAAR Take 1 (one) tablet (25 mg total) by mouth nightly . Quantity: 30 tablet naloxone 4 mg/actuation [place] Commonly known as: NARCAN Administer 1 spray into one nostril for known or suspected opioid overdose. If patient worsens or does not respond, may repeat in 2-3 minutes. . Quantity: 2 each pantoprazole 20 MG tablet Commonly known as: PROTONIX Start taking on: November 30, 2023 Take 1 (one) tablet (20 mg total) by mouth daily Start: 11/30/23. Quantity: 30 tablet senna-docusate 8.6-50 mg Commonly known as: SENNA-S Take 1 (one) tablet by mouth 2 (two) times a day . Quantity: 60 tablet Medications To Continue Details acetaminophen 650 MG CR tablet Commonly known as: TYLENOL ER Take 2 (two) tablets (1,300 mg total) by mouth At NOON . diphenhydrAMINE-acetaminophen 25-500 mg Tab Commonly known as: TYLENOL PM Take 2 (two) tablets by mouth nightly . gabapentin 300 MG capsule Commonly known as: NEURONTIN Take 1 (one) capsule (300 mg total) by mouth every 12 (twelve) hours . levothyroxine 112 MCG tablet Commonly known as: SYNTHROID, LEVOTHROID Take 1 (one) tablet (112 mcg total) by mouth once daily . meloxicam 7.5 MG tablet Commonly known as: MOBIC Take 1 (one) tablet to 2 (two) tablets (7.5-15 mg total) by mouth daily . traZODone 50 MG tablet Commonly known as: DESYREL Take 1 (one) tablet (50 mg total) by mouth nightly . Stopped Medications atenoloL 25 MG tablet Commonly known as: TENORMIN LORazepam 0.5 MG tablet Commonly known as: ATIVAN tiZANidine 2 MG tablet Commonly known as: ZANAFLEX traMADol 50 mg tablet Commonly known as: ULTRAM triamterene-hydrochlorothiazide 75-50 mg per tablet Commonly known as: MAXZIDE Physician(s) Family Provider: Emmanuel Ricketts MD, Address: [address] [place] [address] Follow Up: [facility] Address: [address] [place] [address] Servicing Counties: [phone] Avery Das (more content not included)... [facility] 11-29-2023 Hospital course Narrative DISCHARGE SUMMARY Patient: Christine Mays Date of : 1945 Site: [facility] Family Provider: Emmanuel Ricketts MD Admit Date: 11/25/2023 Discharge Date/Time: 11/29/23 Afternoon Disposition: Home Health Care Services Clinical Summary Hospital Course: Christine Mays is a 78 y.o. female patient of Emmanuel Ricketts MD with a history of anxiety, degenerative disc disease who presented to the [place] ED as a level two trauma. She lost her balance falling onto her left side. She did hit her head, no LOC, and felt immediate pain to her left shoulder. She underwent operative repair with Dr. Das on 11/26/23. She worked with therapies and is appropriate for home health care which has been set up for her. The patient's hospitalization was complicated by orthostatic hypotension resulting in a presyncopal state. She was evaluated by cardiology and an echocardiogram was obtained. The patient's diuretics and beta-hosea have been held at time of discharge and she was started on losartan. The patient had negative orthostatics on the day of discharge. She is stable for discharge at this time with follow-up with orthopedic surgery and her primary care provider. Discharge Diagnoses: INJURIES: Left displaced surgical neck of the proximal humerus Ecchymosis of left scalp ASSESSMENT & PLAN/ACTIVE MEDICAL PROBLEMS: Closed head injury - hit head, no LOC. CT H negative, MRI C spine shows degenerative disc disease without evidence of spinal cord injury. Left humerus fx s/p ORIF. - pain controlled, home health care, WBAT. - f/u with Dr. Das in his # office in 2 weeks for staple removal Orthostatic hypotension - echocardiogram with normal EF. Mild LV hypertrophy grade II diastolic dysfunction. - seen by cardiology 11/27 and Dc'd atenolol- this was held for several doses (11/27 & 11/26), SOCORRO kong. -Improvement today with negative orthostatics -Encouraged to intake more protein in her diet, mobilize slowly when changing positions, will need outpatient follow-up with PCP ___ Surgeries: 11/26/23 ORIF left proximal humerous Consults: Procedures Inpatient consult to Orthopedic Surgery Inpatient consult to Care Management Inpatient Consult to Osteoporosis Management Inpatient consult to Home Health Hub Inpatient consult to Cardiology Allergies: Nickel and Codeine Discharge Diet: Resume home diet Condition: Good Discharge Medications: Discharge Medications New Medications Details HYDROcodone-acetaminophen 5-325 mg per tablet Commonly known as: NORCO Take 1 (one) tablet by mouth every 6 (six) hours as needed for pain (Days supply per fill: 5) . Quantity: 20 tablet losartan 25 MG tablet Commonly known as: COZAAR Take 1 (one) tablet (25 mg total) by mouth nightly . Quantity: 30 tablet naloxone 4 mg/actuation [place] Commonly known as: NARCAN Administer 1 spray into one nostril for known or suspected opioid overdose. If patient worsens or does not respond, may repeat in 2-3 minutes. . Quantity: 2 each pantoprazole 20 MG tablet Commonly known as: PROTONIX Start taking on: November 30, 2023 Take 1 (one) tablet (20 mg total) by mouth daily Start: 11/30/23. Quantity: 30 tablet senna-docusate 8.6-50 mg Commonly known as: SENNA-S Take 1 (one) tablet by mouth 2 (two) times a day . Quantity: 60 tablet Medications To Continue Details acetaminophen 650 MG CR tablet Commonly known as: TYLENOL ER Take 2 (two) tablets (1,300 mg total) by mouth At NOON . diphenhydrAMINE-acetaminophen 25-500 mg Tab Commonly known as: TYLENOL PM Take 2 (two) tablets by mouth nightly . gabapentin 300 MG capsule Commonly known as: NEURONTIN Take 1 (one) capsule (300 mg total) by mouth every 12 (twelve) hours . levothyroxine 112 MCG tablet Commonly known as: SYNTHROID, LEVOTHROID Take 1 (one) tablet (112 mcg total) by mouth once daily . meloxicam 7.5 MG tablet Commonly known as: MOBIC Take 1 (one) tablet to 2 (two) tablets (7.5-15 mg total) by mouth daily . traZODone 50 MG tablet Commonly known as: DESYREL Take 1 (one) tablet (50 mg total) by mouth nightly . Stopped Medications atenoloL 25 MG tablet Commonly known as: TENORMIN LORazepam 0.5 MG tablet Commonly known as: ATIVAN tiZANidine 2 MG tablet Commonly known as: ZANAFLEX traMADol 50 mg tablet Commonly known as: ULTRAM triamterene-hydrochlorothiazide 75-50 mg per tablet Commonly known as: MAXZIDE Physician(s) Family Provider: Emmanuel Ricketts MD, Address: [address] / [place] [address] Follow Up: [facility] Address: [address] [facility] [address] Servicing Counties: [phone] Avery Das MD [address] [address] Follow up call and make an appt for 2 weeks Emmanuel Ricketts MD [address] [place] [address] Follow up in 1 week(s) Additional Information: BP (!) 136/59 (BP Location: Right arm, Patient Position: Standing) Pulse 86 Temp 98.1 F (36.7 C) (Oral) Resp 16 Ht 5' Wt 64.4 kg (141 lb 15.6 oz) SpO2 94% BMI 27.73 kg/m Patient instructions, including activity, were given to the patient/family at discharge. Please see the After Visit Summary in the electronic medical record for details. Time spent on discharge: < 30 minutes Completed by: Jie Brock CNP on 11/29/23, 1:11 PM documented in this encounter [facility] 11-29-2023 Hospital Discharge instructions Jie Brock CNP - 11/29/2023 1:06 PM EDT ORTHOPEDIC TRAUMA (BONE INJURIES) Weight bearing instructions: as tolerated Wound Care: Keep the dressing clean, dry, and in place until instructed to remove by the orthopedic team Wash your hands before and after touching the dressing. Keep your incision dry until follow-up visit. Sutures and/or jef will be removed at your follow up appointment. Call the Orthopedic Surgeon office if you develop: Persistent or heavy bleeding from your wound/incision A fever greater than 101 F Redness or drainage at the surgery site Unexpected swelling, numbness, tingling or discoloration of extremities Severe pain that is not relieved by your pain medicine, ice, and rest Follow-up Care: A follow-up appointment should be scheduled for you at discharge. Keep this follow up appointment The following attachments cannot be sent through Care Everywhere.Osteoporosis (Nepalese)Fall Prevention (Nepalese)documented in this encounter [facility] 11-29-2023 History of Present illness Narrative 11/29/23 1126 11/29/23 1128 11/29/23 1131 Vitals Temp 98.1 F (36.7 C) -- -- Temp src Oral -- -- Heart Rate 80 83 86 Heart Rate Source Monitor Monitor Monitor Resp 16 16 16 BP 116/61 122/62 (!) 136/59 MAP (mmHg) 79 82 85 BP Location Right arm Right arm Right arm BP Method Automatic Automatic Automatic Patient Position Lying Sitting Standing Oxygen Therapy SpO2 94 % 94 % 94 % O2 Device None (Room air) None (Room air) None (Room air) [facility] DAILY PROGRESS NOTE INJURIES: Left displaced surgical neck of the proximal humerus Ecchymosis of left scalp ASSESSMENT & PLAN/ACTIVE MEDICAL PROBLEMS: Closed head injury - hit head, no LOC. CT H negative, MRI C spine shows degenerative disc disease without evidence of spinal cord injury. Left humerus fx s/p ORIF. - pain controlled, therapies. WBAT. - f/u with Dr. Das Orthostatic hypotension - echocardiogram with normal EF. Mild LV hypertrophy grade II diastolic dysfunction. - seen by cardiology 11/27 and Dc'd atenolol- this was held for several doses (11/27 & 11/26), SOCORRO kong. - consider florinef or midodrine if no improvement. - evaluate today, if improved, potentially discharge home. SURGERIES/PROCEDURES: Date Operation/Procedure Provider Name 11/26/2023 Open reduction and internal fixation of left proximal humerus fracture Dr. Das INCIDENTAL FINDINGS: Cardiomegaly Hiatal hernia Right parietal convexity meningioma RESOLVED PROBLEMS: Hypokalemia Alkalosis Lateral neck strain Let arm paresthesias DISPOSITION - Home with [facility] ========= CHIEF COMPLAINT/ HPI / PFSHx / EVENTS OVER LAST 24HRS: Resting in bed. Patient reports no complaints this AM, requesting to discharge home. REVIEW OF SYSTEMS: Other than the above items the remainder of the complete ROS is otherwise unchanged from admission. PHYSICAL EXAM: Temp: [97.5 F (36.4 C)-98.3 F (36.8 C)] 97.9 F (36.6 C) Heart Rate: [52-82] 73 Resp: [16-18] 16 BP: (89-146)/(46-68) 100/49 GENERAL: Appears age appropriate. No acute distress. NEUROLOGICAL: Alert and oriented X 3. Follows commands with extremities. GCS = 15 CARDIOVASCULAR: Regular rate and rhythm. No peripheral edema noted. 2+ pulses radial/DP/PT bilaterally. RESPIRATORY: Respiratory effort unlabored without use of accessory muscles. RA ABDOMINAL: Rounded, soft, nontender. No guarding or peritoneal signs. MUSCULOSKELETAL: Left arm with soft tissue swelling improving. Ecchymosis. Dressing CDI. SKIN: Skin warm and dry. Intake/Output Summary (Last 24 hours) at 11/29/2023 0652 Last data filed at 11/28/2023 0752 Gross per 24 hour Intake 100 ml Output 200 ml Net -100 ml IMAGING: No new imaging. LABS Lab Results Component Value Date WBC 6.89 11/26/2023 HGB 9.0 (L) 11/28/2023 HCT 27.1 (L) 11/28/2023 MCV 96.1 11/26/2023 PLT 218 11/26/2023 RBC 3.34 (L) 11/26/2023 Lab Results Component Value Date GLUCOSE 98 11/28/2023 CALCIUM 8.6 11/28/2023 NA 133 (L) 11/28/2023 K 3.8 11/28/2023 CL 100 11/28/2023 BUN 19 11/28/2023 CREATININE 0.55 (L) 11/28/2023 No results found for: "ALT", "AST", "GGT", "ALKPHOS", "BILITOT" DAILY CHECKLIST: *Need for Restraints: No *Need for Urinary Catheter: No *Need for Central Access Devices: No *Stress Ulcer Prophylaxis: Protonix and diet *VTE Prophylaxis (Body mass index is 27.73 kg/m ., Estimated Creatinine Clearance: 58.6 mL/min (A) (by C-G formula based on SCr of 0.55 mg/dL (L)).): 325 aspirin *Code Status: Full Associated attestation - Andrzej Gibson MD - 11/29/2023 10:19 AM EDT The patient was independently seen and examined. She is sore but otherwise doing well. Presently vital signs stable Afebrile Left upper extremity neurovascularly intact Continue to monitor orthostatic hypotension. Home later today if blood pressure stable. [facility] DAILY PROGRESS NOTE Trauma: Admitted with these risk variables:Electrolyte Disturbance: Hypokalemia and Alkalosis. Please see assessment and plan for further details. INJURIES: Left displaced surgical neck of the proximal humerus Ecchymosis of left scalp Left arm paresthesias ASSESSMENT & PLAN/ACTIVE MEDICAL PROBLEMS: Closed head injury - hit head, no LOC. CT H negative, MRI C spine shows degenerative disc disease without evidence of spinal cord injury Left humerus fx - s/p ORIF L proximal humerus fx by Dr. Das, pain control, add daily vitamin D, Therapies Near syncope- 1 L fluid given and held PB meds yesterday; today will place socorro hose, give additional fluids; ECHO ordered, Cards c/s SURGERIES/PROCEDURES: Date Operation/Procedure Provider Name 11/26/2023 Open reduction and internal fixation of left proximal humerus fracture Dr. Das INCIDENTAL FINDINGS: Cardiomegaly Hiatal hernia Right parietal convexity meningioma RESOLVED PROBLEMS: Hypokalemia Alkalosis Lateral neck strain Let arm paresthesias DISPOSITION - Home with [facility] ========= CHIEF COMPLAINT/ HPI / PFSHx / EVENTS OVER LAST 24HRS: No overnight events. Pt with near syncope again this Am with dizziness and blurred vision. Pain otherwise controlled REVIEW OF SYSTEMS: Other than the above items the remainder of the complete ROS is otherwise unchanged from admission. PHYSICAL EXAM: Temp: [97.2 F (36.2 C)-98.1 F (36.7 C)] 97.6 F (36.4 C) Heart Rate: [52-82] 68 Resp: [14-16] 16 BP: (89-146)/(45-68) 146/68 GENERAL: Appears age appropriate. No acute distress. NEUROLOGICAL: Alert and oriented X 3. Follows commands with extremities. Strength 4/5 in LUE. GCS = 15 CARDIOVASCULAR: Regular rate and rhythm. No peripheral edema noted. 2+ pulses radial/DP/PT bilaterally. RESPIRATORY: Respiratory effort unlabored without use of accessory muscles. RA ABDOMINAL: Rounded, soft, nontender, nondistended, No guarding or peritoneal signs. MUSCULOSKELETAL: Left arm with soft tissue swelling and decreased strength. Echymossis present to posterior distal humerus/ elbow. Let chest wall , breast SKIN: Skin warm and dry. No rashes or lesions. Intake/Output Summary (Last 24 hours) at 11/28/2023 1216 Last data filed at 11/28/2023 0752 Gross per 24 hour Intake 1080 ml Output 2000 ml Net -920 ml IMAGING [briefly note any results pertinent to today's evaluation]: None new LABS Lab Results Component Value Date WBC 6.89 11/26/2023 HGB 9.0 (L) 11/28/2023 HCT 27.1 (L) 11/28/2023 MCV 96.1 11/26/2023 PLT 218 11/26/2023 RBC 3.34 (L) 11/26/2023 Lab Results Component Value Date GLUCOSE 98 11/28/2023 CALCIUM 8.6 11/28/2023 NA 133 (L) 11/28/2023 K 3.8 11/28/2023 CL 100 11/28/2023 BUN 19 11/28/2023 CREATININE 0.55 (L) 11/28/2023 No results found for: "ALT", "AST", "GGT", "ALKPHOS", "BILITOT" DAILY CHECKLIST: *Need for Restraints: No *Need for Urinary Catheter: No *Need for Central Access Devices: No *Stress Ulcer Prophylaxis: Protonix and diet *VTE Prophylaxis (Body mass index is 27.73 kg/m ., Estimated Creatinine Clearance: 58.6 mL/min (A) (by C-G formula based on SCr of 0.55 mg/dL (L)).): 324 aspirin *Code Status: Full Associated attestation - Nayely Mae MD - 11/28/2023 12:23 PM EDT TRAUMA/ ACUTE CARE SURGERY ATTENDING NOTE Please link this note as an addendum to the LAVELLE note with the same day of service. The patient was seen and examined by me, the attending trauma surgeon, on multidisciplinary rounds on the date of service listed above. I have reviewed the LAVELLE note, labs, studies, and lead sales consultant notes. I have reviewed and agree with the documented history, exam, and plan of care, with the following additions and corrections: Today: Christine Mays is a 78 y.o. female presenting with L humerus fx following fall s/p fixation. Pt with ABLA 2/2 trauma and OR; stable. Pt with ongoing orthostatic hotn and near syncope despite fluid resuscitation, hgb WNL, SOCORRO hose. Will ask cardiology to eval, check echo. Therapies, home meds, ASA for DVT ppx. Dispo planning. Pertinent labs and imaging personally reviewed with evidence of L humerus fx, osteopenia, ABLA. A comprehensive review of systems was performed with the pt and all systems reviewed were negative except those listed in the HPI. near-syncope. Dayday Mae MD, FACS, DABS, DABA Trauma, Acute Care Surgery, Surgical Critical Care, and Neurocritical Care ATTENDING PHYSICIAN NAYELY MAE MD PRIMARY CARE PHYSICIAN EMMANUEL RICKETTS MD ADMITTING PHYSICIAN NAYELY MAE MD CONSULTING PHYSICIAN NAYELY MAE MD She at this point in time is postoperative day #2 ORIF, left proximal humerus. She is in good spirits, feels like she can transition home today. Wound is clean, dry, intact. No erythema. No drainage. No lymphangitis. No cellulitis. Vital signs are stable, afebrile. Hemoglobin 9.0. IMPRESSION Postoperative day 2 open reduction, internal fixation, left proximal humerus. PLAN At this point in time, she can transition home. I will see her in 2 weeks for staple removal. D 11/28/2023 11:41 [id number] T 11/28/2023 12:21 MCB/MODL Care Management Progress Note Date: 11/28/2023 Time: 10:25 AM Patient Name: Christine Mays Date of : 1945 Discharge Plan: D/C Disposition: Home Health Care Services Related to Current Admission?: Yes Final D/C Agency/Destination: [facility] Healthcare Plan A: Home Health Care Services Plan A : Post Acute Patient Choice 1: [facility] Healthcare Plan B: Home Discharging Transportation Plan: Discharge Plan Status: Patient has been accepted by [facility]. Assessment and Background Information: [facility] PHYSICAL THERAPY TREATMENT NOTE Skilled Therapy Needs After Discharge Anticipate Resolution of Current Assessment Limitations Including: Mechanical Barriers, Social Support, Pain Are Skilled Therapy Services Needed After Discharge: Yes Intensity of Skilled Therapy: 2-3 days per week Anticipated Duration of Skilled Therapy: > 30 days DME Recommendation: Cane (owns) Rehab Potential: Good Outcomes Measures Prior Function - Basic Mobility Raw Score: 24 Points Prior Function - Basic Mobility % Impaired: 0% AM-PAC Basic Mobility Raw Score: 20 Points AM-PAC Basic Mobility % Impaired: 33.32% Activity Tolerance Activity Tolerance: Tolerates 20 - 30 min activity with multiple rests Therapy Precautions LUE: Wt bearing as tolerated (per nursing) General Rehab Precautions: Fall risk Balance Sitting Balance - Static: Modified independent Standing Balance - Static: Contact guard assist Wine Specialist - Standing Static: cane (with and without cane) Bed Mobility Rolling: (Up in recliner upon arrival) Transfers Sit to Stand: Contact guard assist Wine Specialist: cane, RUE Skilled Intervention Provided: verbal cues, tactile cues, monitoring patient response with activity For: UE positioning, controlled descent, safe use of AD and/or equipment, safety during functional tasks, self-monitoring during activity, weight shifting Resulting in: improved functional independence, improved performance, improved safety Gait/Locomotion Gait Assistance: Contact guard assist Assistive Device: cane, RUE Distance: 100 Feet Gait Assistance Trial 2: Contact guard assist Assistive Device Trial 2: cane, RUE Distance Trial 2: 100 Pattern: step through, R decreased step length, L decreased step length, antalgic, shuffle, decreased ronan (steps per minute) Weight Bearing Status: able to maintain Gait Loss(es) of Balance: intermittent (slight unsteadiness) Environment/Terrain: open/community environment, multiple distractions Stair Management Technique: one rail R, step-to pattern, forwards Stair Management Assistance: Contact guard assist Number of Stairs: 4 Skilled Intervention Provided: verbal cues, tactile cues, monitoring patient response with activity, patient education For: self-monitoring during activity, stairs sequence/technique Resulting in: improved activity tolerance, improved functional independence, increased insight into deficits, improved performance Exercise Ankle Pumps: x20 yin Hip Flexion: x20 yin Hip Abduction: x20 yin Long Arc Quad: x20 yin Seated Exercises: HS curls x15 yin, Pillow squeezes x20 Skilled Intervention Provided: verbal cues, tactile cues, instruction on proper technique/alignment, monitoring patient response with exercise For: achieving full ROM as tolerated, frequency of exercise(s), hold duration Resulting in: efficient movement, improved functional strength/ROM, improved independence with HEP Additional Treatment Details Pt. plans on using SPC at home upon discharge. Focused on proper gait technique with SPC. Up in recliner with RN in room upon exiting. After patient mobilization was performed AV Foot Pumps were administered to the Bilateral LE's for DVT prevention. Home Living Obtained Home Living and PLOF info from: Patient Lives With: Spouse Type of Home: House Home Layout: One level Steps to enter home: Ramped entrance Mobility Equipment: Cane, Wheeled walker Prior Level of Function Level of Tift - Transfers/Ambulation/Mobility: Independent with functional transfers, Independent with household ambulation, Independent with community ambulation (no AD used TRANSPORTATION COORDINATOR. 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 This note stands as the current Discharge Summary upon patient discharge from the hospital or completion of Physical Therapy Plan of Care. ATTENDING PHYSICIAN NAYELY MAE MD PRIMARY CARE PHYSICIAN EMMANUEL RICKETTS MD ADMITTING PHYSICIAN NAYELY MAE MD CONSULTING PHYSICIAN NAYELY MAE MD Christine is postop day 1 ORIF left proximal humerus fracture. She is in good spirits this morning. PHYSICAL EXAMINATION Vital Signs: Stable. Extremities: Wound is clean, dry, intact. No erythema. No drainage. No lymphangitis. No cellulitis. Full range of motion hand, wrist, and elbow. Left shoulder has good passive range of motion. IMPRESSION Postoperative day 1 left humerus open-reduction internal fixation. PLAN At this point in time, she can transition home with home physical therapy. I will see her in 2 weeks in my [place] office for x-ray and staple removal. D 11/27/2023 11:24 [id number] T 11/27/2023 11:59 MCB/MODL [facility] DAILY PROGRESS NOTE Trauma: Admitted with these risk variables:Electrolyte Disturbance: Hypokalemia and Alkalosis. Please see assessment and plan for further details. INJURIES: Left displaced surgical neck of the proximal humerus Ecchymosis of left scalp Left arm paresthesias ASSESSMENT & PLAN/ACTIVE MEDICAL PROBLEMS: Closed head injury - hit head, no LOC. CT H negative, MRI C spine shows degenerative disc disease without evidence of spinal cord injury Left humerus fx - s/p ORIF L proximal humerus fx by Dr. Das, pain control, add daily vitamin D, Therapies Left arm paresthesias - resolved Hypokalemia - present on admission, resolved. Alkalosis - present on admission, resolved. SURGERIES/PROCEDURES: Date Operation/Procedure Provider Name 11/26/2023 Open reduction and internal fixation of left proximal humerus fracture Dr. Das INCIDENTAL FINDINGS: Cardiomegaly Hiatal hernia Right parietal convexity meningioma RESOLVED PROBLEMS: Hypokalemia Alkalosis Lateral neck strain DISPOSITION - Home? ========= CHIEF COMPLAINT/ HPI / PFSHx / EVENTS OVER LAST 24HRS: Patient with no acute changes reported during the night. She reports some L spine pain. However this is chronic for her. She reports that it feels "sharper" than normal but then admits she is just worried about her hardware being misplaced during her fall. Imaging reviewed and discussed with patient that all of her previous hardware is intact. REVIEW OF SYSTEMS: Other than the above items the remainder of the complete ROS is otherwise unchanged from admission. PHYSICAL EXAM: Temp: [97.2 F (36.2 C)-98.3 F (36.8 C)] 98 F (36.7 C) Heart Rate: [56-78] 63 Resp: [14-18] 16 BP: (97-160)/(46-96) 97/56 GENERAL: Appears age appropriate. No acute distress. NEUROLOGICAL: Alert and oriented X 3. Follows commands with extremities. Strength 4/5 in LUE. GCS = 15 Neck: Supple, trachea midline, no midline tenderness, step offs, bony crepitus. Collar removed CARDIOVASCULAR: Regular rate and rhythm. No peripheral edema noted. 2+ pulses radial/DP/PT bilaterally. RESPIRATORY: Lungs, clear to auscultation bilaterally. No rhonchi, wheezes or crackles. Respiratory effort unlabored without use of accessory muscles. ABDOMINAL: Rounded, soft, nontender, nondistended, normal bowel sounds. No guarding or peritoneal signs. MUSCULOSKELETAL: Left arm with soft tissue swelling and decreased strength. Echymossis present to posterior distal humerus/ elbow SKIN: Skin warm and dry. No rashes or lesions. Intake/Output Summary (Last 24 hours) at 11/27/2023 0950 Last data filed at 11/26/2023 1600 Gross per 24 hour Intake 200 ml Output 600 ml Net -400 ml IMAGING [briefly note any results pertinent to today's evaluation]: Reviewed LABS Lab Results Component Value Date WBC 6.89 11/26/2023 HGB 9.6 (L) 11/27/2023 HCT 29.5 (L) 11/27/2023 MCV 96.1 11/26/2023 PLT 218 11/26/2023 RBC 3.34 (L) 11/26/2023 Lab Results Component Value Date GLUCOSE 124 (H) 11/27/2023 CALCIUM 8.7 11/27/2023 NA 134 (L) 11/27/2023 K 4.0 11/27/2023 CL 99 11/27/2023 BUN 20 11/27/2023 CREATININE 0.70 11/27/2023 No results found for: "ALT", "AST", "GGT", "ALKPHOS", "BILITOT" DAILY CHECKLIST: *Need for Restraints: No *Need for Urinary Catheter: No *Need for Central Access Devices: No *Stress Ulcer Prophylaxis: Protonix and diet *VTE Prophylaxis (Body mass index is 27.73 kg/m ., Estimated Creatinine Clearance: 46 mL/min (by C-G formula based on SCr of 0.7 mg/dL).): 324 aspirin *Code Status: Full Associated attestation - Nayely Mae MD - 11/27/2023 2:15 PM EDT TRAUMA/ ACUTE CARE SURGERY ATTENDING NOTE Please link this note as an addendum to the LAVELLE note with the same day of service. The patient was seen and examined by me, the attending trauma surgeon, on multidisciplinary rounds on the date of service listed above. I have reviewed the LAVELLE note, labs, studies, and lead sales consultant notes. I have reviewed and agree with the documented history, exam, and plan of care, with the following additions and corrections: Today: Christine Mays is a 78 y.o. female presenting with L humerus fx following fall s/p fixation. PT with ABLA 2/2 trauma and OR; stable. No acute complains today. Therapies, home meds, ASA for DVT ppx. Dispo planning. Pertinent labs and imaging personally reviewed with evidence of L humerus fx, osteopenia, ABLA. A comprehensive review of systems was performed with the pt and all systems reviewed were negative except those listed in the HPI. Dayday Mae MD, FACS, DABS, DABA Trauma, Acute Care Surgery, Surgical Critical Care, and Neurocritical Care [facility] POST-OP CHECK Ms. Christine Mays is a 78 y.o. female who is - POD#0 OPEN REDUCTION INTERNAL FIXATION HUMERUS on 11/26/[address] Das Procedure without complications. I have evaluated the patient in the immediate post op period. Patient alert and sitting in bed eating dinner. Reports pain is controlled currently. Denies CP, SOB, or emesis. Left arm neurovascularly intact. Assessment and Plan: Closed head injury - hit head, no LOC. CT H negative, MRI C spine shows degenerative disc disease without evidence of spinal cord injury Left humerus fx - s/p ORIF with Dr. Das, pain control, vitamin D level 36 Left arm paresthesias - s/p fall likely related to humerus fx, ?brachial plexus injury. MRI C-spine without cord injury. Hypokalemia - present on admission, resolved. Alkalosis - present on admission, resolved. Temp: [97.2 F (36.2 C)-98 F (36.7 C)] 97.2 F (36.2 C) Heart Rate: [50-79] 61 Resp: [14-18] 18 BP: (76-189)/(36-96) 130/62 GENERAL: Appears age appropriate. No acute distress. NEUROLOGICAL: Alert and oriented X 3. Follows commands with extremities. Strength 2/5 in LUE. GCS = 15 Neck: Supple, trachea midline, no midline tenderness, step offs, bony crepitus. Collar removed CARDIOVASCULAR: Regular rate and rhythm. No peripheral edema noted. 2+ pulses radial/DP/PT bilaterally. RESPIRATORY: Lungs, clear to auscultation bilaterally. No rhonchi, wheezes or crackles. Respiratory effort unlabored without use of accessory muscles. ABDOMINAL: Rounded, soft, nontender, nondistended, normal bowel sounds. No guarding or peritoneal signs. GENITOURINARY: Normal genitalia for age without lesion or trauma. [place] present with yellow urine. MUSCULOSKELETAL: Left arm with soft tissue swelling and decreased strength. Dressing CDI. Arm in sling. SKIN: Skin warm and dry. No rashes or lesions. Intake/Output Summary (Last 24 hours) at 11/26/2023 1723 Last data filed at 11/26/2023 1600 Gross per 24 hour Intake 200 ml Output 600 ml Net -400 ml Care Management Progress Note Date: 11/26/2023 Time: 11:59 AM Patient Name: Christine Mays Date of : 1945 Consult received for discharge needs. Patient is currently in surgery. Care management will follow up with the patient tomorrow to complete assessment. BENJAMIN Flores Spiritual Care Progress Note Completed by: Anna Bello Person(s) Present During this Visit: Granddaughter, Spouse, Healthcare Provider Time Spent in Direct Patient Care: 45 Narrative: This sales appointment coordinator responded to Trauma 2 alert as part of the Trauma Team. Met with pt's , Jonathan, and their granddaughter upon their arrival. Introduced self and role and provided a brief update. No needs were expressed at this time. This sales appointment coordinator provided refreshments for family and escorted them to pt's room when appropriate. Pastoral Care team will remain available to support patient and family PRN. 11/25/23 9539 Visit Background Visit With Granddaughter;Spouse;Healthcare Provider Visit By Staff Deep Tissue Massage Therapist Visit Progression Introduction Visit Requested By Deep Tissue Massage Therapist Initiated Visit Source Overhead Page Visit Type Crisis Visit Visit Circumstances and Events Trauma 2 Visit Length (minutes) 45 Patient's Response to Pastoral Care Appeared to be well-engaged Visit Planning PRN Spiritual Assessment Not assessed during visit Roman Catholic Assessment Not assessed during this visit Family assessment provided? Not assessed during this visit Signature: Anna Bello MDiv Staff Deep Tissue Massage Therapist [facility] On-Call Deep Tissue Massage Therapist /Luis "On-Call Deep Tissue Massage Therapist" She/Her/Hers documented in this encounter [facility] 11-29-2023 Note Attestation signed by Andrzej Gibson MD at 11/29/2023 10:19 AM The patient was independently seen and examined. She is sore but otherwise doing well. Presently vital signs stable Afebrile Left upper extremity neurovascularly intact Continue to monitor orthostatic hypotension. Home later today if blood pressure stable. [facility] and [facility] DAILY PROGRESS NOTE INJURIES: Left displaced surgical neck of the proximal humerus Ecchymosis of left scalp ASSESSMENT & PLAN/ACTIVE MEDICAL PROBLEMS: Closed head injury - hit head, no LOC. CT H negative, MRI C spine shows degenerative disc disease without evidence of spinal cord injury. Left humerus fx s/p ORIF. - pain controlled, therapies. WBAT. - f/u with Dr. Das Orthostatic hypotension - echocardiogram with normal EF. Mild LV hypertrophy grade II diastolic dysfunction. - seen by cardiology 11/27 and Dc'd atenolol- this was held for several doses (11/27 & 11/26), SOCORRO kong. - consider florinef or midodrine if no improvement. - evaluate today, if improved, potentially discharge home. SURGERIES/PROCEDURES: Date Operation/Procedure Provider Name 11/26/2023 Open reduction and internal fixation of left proximal humerus fracture Dr. Das INCIDENTAL FINDINGS: Cardiomegaly Hiatal hernia Right parietal convexity meningioma RESOLVED PROBLEMS: Hypokalemia Alkalosis Lateral neck strain Let arm paresthesias DISPOSITION - Home with [facility] ========= CHIEF COMPLAINT/ HPI / PFSHx / EVENTS OVER LAST 24HRS: Resting in bed. Patient reports no complaints this AM, requesting to discharge home. REVIEW OF SYSTEMS: Other than the above items the remainder of the complete ROS is otherwise unchanged from admission. PHYSICAL EXAM: Temp: [97.5 degrees F (36.4 degrees C)-98.3 degrees F (36.8 degrees C)] 97.9 degrees F (36.6 degrees C) Heart Rate: [52-82] 73 Resp: [16-18] 16 BP: (89-146)/(46-68) 100/49 GENERAL: Appears age appropriate. No acute distress. NEUROLOGICAL: Alert and oriented X 3. Follows commands with extremities. GCS = 15 CARDIOVASCULAR: Regular rate and rhythm. No peripheral edema noted. 2+ pulses radial/DP/PT bilaterally. RESPIRATORY: Respiratory effort unlabored without use of accessory muscles. RA ABDOMINAL: Rounded, soft, nontender. No guarding or peritoneal signs. MUSCULOSKELETAL: Left arm with soft tissue swelling improving. Ecchymosis. Dressing CDI. SKIN: Skin warm and dry. Intake/Output Summary (Last 24 hours) at 11/29/2023 0652 Last data filed at 11/28/2023 0752 Gross per 24 hour Intake 100 ml Output 200 ml Net -100 ml IMAGING: No new imaging. LABS Lab Results Component Value Date WBC 6.89 11/26/2023 HGB 9.0 (L) 11/28/2023 HCT 27.1 (L) 11/28/2023 MCV 96.1 11/26/2023 PLT 218 11/26/2023 RBC 3.34 (L) 11/26/2023 Lab Results Component Value Date GLUCOSE 98 11/28/2023 CALCIUM 8.6 11/28/2023 NA 133 (L) 11/28/2023 K 3.8 11/28/2023 CL 100 11/28/2023 BUN 19 11/28/2023 CREATININE 0.55 (L) 11/28/2023 No results found for: "ALT", "AST", "GGT", "ALKPHOS", "BILITOT" DAILY CHECKLIST: *Need for Restraints: No *Need for Urinary Catheter: No *Need for Central Access Devices: No *Stress Ulcer Prophylaxis: Protonix and diet *VTE Prophylaxis (Body mass index is 27.73 kg/m ., Estimated Creatinine Clearance: 58.6 mL/min (A) (by C-G formula based on SCr of 0.55 mg/dL (L)).): 325 aspirin *Code Status: Full AUTHENTICATED BY ANDRZEJ GIBSON ON 11/29/2023 10:19:29 [facility] 11-28-2023 Note Formatting of this n ote might be different from the original. Problem: Actual or potential alteration in health Goal: Absence of healthcare acquired conditions Outcome: Partially Met Goal: Knowledge of Interdisciplinary Plan of Care Outcome: Partially Met Goal: Knowledge of Enviroment Outcome: Partially Met [facility] 11-28-2023 Miscellaneous Notes Problem: Actual or potential alteration in health Goal: Absence of healthcare acquired conditions Outcome: Partially Met Goal: Knowledge of Interdisciplinary Plan of Care Outcome: Partially Met Goal: Knowledge of Enviroment Outcome: Partially Met This rn called report to fox rowe assuming care of patient going to room 4718. Problem: Actual or potential alteration in health Goal: Absence of healthcare acquired conditions Outcome: Partially Met Goal: Knowledge of Interdisciplinary Plan of Care Outcome: Partially Met Goal: Knowledge of Enviroment Outcome: Partially Met Problem: Pain Goal: Reduced pain sensation Outcome: Partially Met Goal: Control of acute pain to acceptable level Outcome: Partially Met Goal: Able to cope with pain Outcome: Partially Met Goal: Able to achieve maximum level of physical functioning Outcome: Partially Met Goal: Able to achieve maximum level of psychosocial functioning Outcome: Partially Met Problem: Falls, Risk of Goal: Absence of falls Outcome: Partially Met Goal: Absence of physical injury Outcome: Partially Met Problem: Pressure Injury, Risk of Goal: Absence of pressure injury Outcome: Partially Met Problem: Venous Thromboembolism, Risk of Goal: Absence of venous thromboembolism Outcome: Partially Met Patient sitting at side of bed. Stating she is very lightheaded. Blood pressure 65/24. Lenora Foreman notified. Order for plasmalyte bolus, BP meds discontinued. Patient returned to bed, BP increased to 101/45 Pt BP 93/53. Lenora Foreman NP notified. No new orders at this time. Physical Therapy Plan of Care Certification Note Medicare billing rules require the provider to review and certify the physical therapy plan of care for patients in observation or outpatient status. This co-signature is to electronically certify that the above-named patient, who is under my care, requires skilled therapy services as described in the treatment plan below. I further certify that the services outlined in this plan are skilled and medically necessary. I have reviewed this plan of care for rehabilitation services and recommend that these services continue until the patient is discharged from this hospitalization or the patient is discharged from physical therapy services. Coded Admission Diagnosis Hypokalemia [E87.6] Humerus head fracture, left, with routine healing, subsequent encounter [S42.292D] Encounter for post fall examination [Z04.3] Closed nondisplaced fracture of surgical neck of left humerus, unspecified fracture morphology, initial encounter [S42.215A] PT Functional Diagnosis: R26.81 Unsteadiness on feet PT Goals Encounter Problems (Active) Problem: Impaired Strength Dates: Start: 11/27/23 Disciplines: PT Goal: PT- Strength Other Dates: Start: 11/27/23 Expected End: 12/03/23 Description: PT- Patient to be independent with HEP to improve functional mobility, strength, and safety Disciplines: PT Intervention: Education, Therapeutic exercise Frequency: PRN Dates: Start: 11/27/23 Problem: Mobility - Impaired Dates: Start: 11/27/23 Disciplines: PT Goal: pt- bed mobility Dates: Start: 11/27/23 Expected End: 12/03/23 Description: PT - Patient will perform bed mobility with independence to improve functional mobility and safety. Disciplines: PT Goal: PT- sit to stand transfer Dates: Start: 11/27/23 Expected End: 12/03/23 Description: PT - Patient will perform sit to/from stand transfer with modified independence to improve functional mobility and safety. Disciplines: PT Goal: PT- dynamic balance Dates: Start: 11/27/23 Expected End: 12/03/23 Description: PT - Patient will perform standing dynamic balance activities with device with stand by assist to improve functional mobility and safety. Disciplines: PT Goal: PT- ambulation Dates: Start: 11/27/23 Expected End: 12/03/23 Description: PT - Patient will ambulate 250 feet with device with stand by assist to improve functional mobility and safety. Disciplines: PT Goal: PT- stair climbing Dates: Start: 11/27/23 Expected End: 12/03/23 Description: PT - Patient will ascend and descend 2 stairs with non-reciprocal technique with 1 rail with modified independence to improve functional mobility and safety. Disciplines: PT Intervention: Education, Assistive device training Frequency: PRN Dates: Start: 11/27/23 Intervention: Education, Bed mobility training Frequency: PRN Dates: Start: 11/27/23 Intervention: Education, Balance training Frequency: PRN Dates: Start: 11/27/23 Description: REMINDER(s): Reinforce education provided by Physical Therapy related to balance training. Intervention: Education, Gait training Frequency: PRN Dates: Start: 11/27/23 Intervention: Education, stair training Frequency: PRN Dates: Start: 11/27/23 Intervention: Education, Therapeutic exercise Frequency: PRN Dates: Start: 11/27/23 Intervention: Education, Transfer training Frequency: PRN Dates: Start: 11/27/23 Intervention: Education, Precautions Frequency: PRN Dates: Start: 11/27/23 Frequency of Treatment: 5 days per week This physical Therapy Plan of Care will be carried out until: 1.) The PT plan has been resolved or 2.) The patient is discharged from the acute care hospital Problem: Actual or potential alteration in health Goal: Knowledge of Enviroment Outcome: Partially Met Oriented to room, bed operation, call light and unit Problem: Pain Goal: Control of acute pain to acceptable level Outcome: Partially Met Robbins /Toradol as needed for c/o pain. Ice to lt arm as needed for pain relief and to decrease edema Pain has been managed with current pain regiment Problem: Falls, Risk of Goal: Absence of falls Outcome: Partially Met Fall precautions cont. Bed in lowest positiond Bed exit alarm in use. Frequent rounding by staff to assess needs Problem: Venous Thromboembolism, Risk of Goal: Absence of venous thromboembolism Outcome: Partially Met Meds as ordered Problem: Actual or potential alteration in health Goal: Absence of healthcare acquired conditions Outcome: Partially Met Goal: Knowledge of Interdisciplinary Plan of Care Outcome: Partially Met Goal: Knowledge of Enviroment Outcome: Partially Met Note: Pt oriented to room 4102. Call light in reach. Problem: Falls, Risk of Goal: Absence of falls Outcome: Partially Met Note: Fall precautions in place. Nonskid socks on. Call light in reach. Bed in lowest position. Goal: Absence of physical injury Outcome: Partially Met Problem: Pressure Injury, Risk of Goal: Absence of pressure injury Outcome: Partially Met Note: Pt educated on repositioning every 2 hours. Problem: Venous Thromboembolism, Risk of Goal: Absence of venous thromboembolism Outcome: Partially Met Plan of care reviewed [facility] DAILY PROGRESS NOTE Trauma: Admitted with these risk variables:Electrolyte Disturbance: Hypokalemia and Alkalosis. Please see assessment and plan for further details. INJURIES: Left displaced surgical neck of the proximal humerus Ecchymosis of left scalp Left arm paresthesias ASSESSMENT & PLAN/ACTIVE MEDICAL PROBLEMS: Closed head injury - hit head, no LOC. CT H negative, MRI C spine shows degenerative disc disease without evidence of spinal cord injury Left humerus fx - surgery today with Dr. Das, pain control, vitamin D level pending Left arm paresthesias - s/p fall likely related to humerus fx, ?brachial plexus injury. MRI C-spine without cord injury. Hypokalemia - present on admission, resolved. Alkalosis - present on admission, resolved. SURGERIES/PROCEDURES: Date Operation/Procedure Provider Name INCIDENTAL FINDINGS: Cardiomegaly Hiatal hernia Right parietal convexity meningioma RESOLVED PROBLEMS: Hypokalemia Alkalosis Lateral neck strain DISPOSITION - TBD ========= CHIEF COMPLAINT/ HPI / PFSHx / EVENTS OVER LAST 24HRS: Patient with no acute changes reported during the night. She reports that her arm paraesthesias have improved and that "it just feels heavy." MRI reviewed and c-collar removed at this time. REVIEW OF SYSTEMS: Other than the above items the remainder of the complete ROS is otherwise unchanged from admission. PHYSICAL EXAM: Temp: [97.4 F (36.3 C)-98.1 F (36.7 C)] 97.8 F (36.6 C) Heart Rate: [50-93] 59 Resp: [11-24] 16 BP: (76-209)/(36-192) 125/61 GENERAL: Appears age appropriate. No acute distress. NEUROLOGICAL: Alert and oriented X 3. Follows commands with extremities. Strength 2/5 in LUE. GCS = 15 Neck: Supple, trachea midline, no midline tenderness, step offs, bony crepitus. Collar removed CARDIOVASCULAR: Regular rate and rhythm. No peripheral edema noted. 2+ pulses radial/DP/PT bilaterally. RESPIRATORY: Lungs, clear to auscultation bilaterally. No rhonchi, wheezes or crackles. Respiratory effort unlabored without use of accessory muscles. ABDOMINAL: Rounded, soft, nontender, nondistended, normal bowel sounds. No guarding or peritoneal signs. GENITOURINARY: Normal genitalia for age without lesion or trauma. [place] present with yellow urine. MUSCULOSKELETAL: Left arm with soft tissue swelling and decreased strength. SKIN: Skin warm and dry. No rashes or lesions. Intake/Output Summary (Last 24 hours) at 11/26/2023 1316 Last data filed at 11/26/2023 1259 Gross per 24 hour Intake 200 ml Output 100 ml Net 100 ml IMAGING [briefly note any results pertinent to today's evaluation]: Reviewed LABS Lab Results Component Value Date WBC 6.89 11/26/2023 HGB 10.7 (L) 11/26/2023 HCT 32.1 (L) 11/26/2023 MCV 96.1 11/26/2023 PLT 218 11/26/2023 RBC 3.34 (L) 11/26/2023 Lab Results Component Value Date GLUCOSE 127 (H) 11/26/2023 CALCIUM 8.7 11/26/2023 NA 134 (L) 11/26/2023 K 3.9 11/26/2023 CL 99 11/26/2023 BUN 19 11/26/2023 CREATININE 0.64 11/26/2023 No results found for: "ALT", "AST", "GGT", "ALKPHOS", "BILITOT" DAILY CHECKLIST: *Need for Restraints: No *Need for Urinary Catheter: No *Need for Central Access Devices: No *Stress Ulcer Prophylaxis: Protonix and diet *VTE Prophylaxis (Body mass index is 27.73 kg/m ., Estimated Creatinine Clearance: 50.4 mL/min (by C-G formula based on SCr of 0.64 mg/dL).): holding for OR *Home Medications Reconciled: Partial *Code Status: Full Associated attestation - Nayely Mae MD - 11/26/2023 3:42 PM EDT TRAUMA/ ACUTE CARE SURGERY ATTENDING NOTE Please link this note as an addendum to the LAVELLE note with the same day of service. The patient was seen and examined by me, the attending trauma surgeon, on multidisciplinary rounds on the date of service listed above. I have reviewed the LAVELLE note, labs, studies, and lead sales consultant notes. I have reviewed and agree with the documented history, exam, and plan of care, with the following additions and corrections: Today: Christine Mays is a 78 y.o. female presenting with L humerus fx following fall. Pt with DINORA paresthesia, suspect brach plexus injury, MRI c spine neg. Will monitor LUE paresthesia. C collar cleared. Ortho eval pending. All of the above listed fractures are fractures due to combination of osteopenia and trauma that alone would not have caused them. Will consult osteoporosis management and check Vit D. Pt with ABLA 2/2 trauma; no active bleed, will monitor; daily CBC. Home meds, therapies post op. The aforementioned issues are severe. These issues do continue to pose a threat to life or bodily function. Pertinent labs and imaging personally reviewed with evidence of L humerus fx, osteopenia, ABLA. HypoK POA resolved with replacement. Acidosis POA resolved. A comprehensive review of systems was performed with the pt and all systems reviewed were negative except those listed in the HPI. Admitted with these risk variables:Electrolyte Disturbance: Hypokalemia and Alkalosis, anemia. Please see assessment and plan for further details. Dayday Mae MD, FACS, DABS, DABA Trauma, Acute Care Surgery, Surgical Critical Care, and Neurocritical Care Brief Post Operative Note Patient Name: Christine Mays : 1945 (78 y.o.) Date of Service: 11/25/2023 - 11/26/2023 [facility]: [id number] Procedure(s): ORIF left proximal humerous Pre-Operative Diagnoses: * Left proximal humerus fracture Post-Operative Diagnoses: * Same as Pre-Op Diagnosis Surgeon(s) and Role: * Avery Das MD - Primary Anesthesiologist: Aissatou Wilson MD [employer] GUNSMITH: Minnie Burch CRNA Drilling Engineering Manager: Placido Engle; Romel Hoffmann RN; Cathryn Barba RN; Kyler Brock RN; Jeanette Persaud RN Security Sales Manager: Castro Gould, TECHNOLOGIST Scrub Person: Lena Shea RN WEB GRAPHIC DESIGNER: Jeri Brannon RN Operative findings: see op note Intra and immediate post-operative complications: none Type of anesthesia used: General Estimated blood loss: 100 mL Estimated urine output: Refer to surgical log Specimen(s): * No specimens in log * Implant(s): Implant Name Type Inv. Item Serial No. Contract Modeler Lot No. LRB No. Used Action PLATE 3.5 X 90MM 3HL LCP PROX HUMERUS STD - [id number] PLATE 3.5 X 90MM 3HL LCP PROX HUMERUS STD SYNTHES LT Left 1 Implanted SCREW 3.5X26MM CORTEX SELF-TAP - [id number] SCREW 3.5X26MM CORTEX SELF-TAP SYNTHES LT Left 2 Implanted SCREW 3.5 X 50MM LOCKING SELF-TAP STRDRV REC - [id number] SCREW 3.5 X 50MM LOCKING SELF-TAP STRDRV REC SYNTHES LT Left 3 Implanted SCREW 3.5 X 30MM LOCKING SELF-TAP STRDRV REC - [id number] SCREW 3.5 X 30MM LOCKING SELF-TAP STRDRV REC SYNTHES LT Left 1 Implanted SCREW 3.5 X 45MM LOCKING SELF-TAP STRDRV REC - [id number] SCREW 3.5 X 45MM LOCKING SELF-TAP STRDRV REC SYNTHES LT Left 4 Implanted SCREW 3.5 X 24MM CORTEX SELF-TAP - [id number] SCREW 3.5 X 24MM CORTEX SELF-TAP SYNTHES LT Left 1 Implanted Drain(s): External Urinary Catheter (Active) Wound(s): Wound 11/26/23 Surgical Wound Upper Arm Anterior;Left;Proximal (Active) Wound Closure Durand;Surgical Adhesive 11/25/23 0001 Avery Das MD 11/26/2023 1:07 PM ATTENDING PHYSICIAN NAYELY MAE MD PRIMARY CARE PHYSICIAN EMMANUEL RICKETTS MD ADMITTING PHYSICIAN NAYELY MAE MD CONSULTING PHYSICIAN NAYELY MAE MD PREOPERATIVE DIAGNOSIS Left surgical neck fracture. POSTOPERATIVE DIAGNOSIS Left surgical neck fracture. PROCEDURE Open reduction and internal fixation of left proximal humerus fracture. ANESTHESIA General anesthetic. COMPLICATIONS No intraoperative complications. SPECIMENS None. ESTIMATED BLOOD LOSS 100 cc. APPROACH Deltopectoral. HISTORY Christine is an 78-year-old patient with significant history of left shoulder proximal humerus fracture. 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 The patient at this point in time was explained all of the risks and complications of surgery, including, but not limited to, the risk of infection, bleeding, neurologic or vascular injury, the possibility of deep venous thrombosis, pulmonary embolism, myocardial infarction, stroke, or even with surgery. Explained the possibilities of continued pain, stiffness, loss of range of motion, as well as the need for future surgery. Given all of the options of anesthetic per the anesthesia team and at this point in time elected for general anesthetic. We talked about the possibility of nonunion, malunion, hardware failure, and the need for future surgery for any or all of the above complications. The patient understands this and at this point in time consents for surgical intervention. PROCEDURE IN DETAIL At this point in time, patient was met in the preoperative holding area where the left shoulder was confirmed to be the appropriate site and marked by myself. Patient was taken to the operative suite, given preoperative Kefzol per protocol as well as a general anesthetic. She was then placed in the beach chair position. Left shoulder was then sterilely prepped and draped using ChloraPrep solution. After sterilization of the left shoulder, we did our final time-out to confirm that the left shoulder was in fact the appropriate site that had been marked by myself. We then went ahead and proceeded forward with doing our deltopectoral approach. Upon entering the deep surface of the conjoined tendon as well as the deep deltoid, our retractors were placed. We then identified the biceps tendon in the bicipital groove. This allowed us to use anatomic bony landmarks to reposition the proximal humeral fracture. We then used a proximal humeral locking plate to secure the proximal humeral fracture. Once I was happy with the alignment and the plate fixation, fluoroscopy images were saved. Wound was copiously irrigated. Vancomycin powder was sprinkled over the contact surface areas of the plate. Wound was then closed with 0 Vicryl, 2 Vicryl and skin jef. Patient placed in sterile dressing, extubated and taken to PACU without intraoperative complication. D 11/26/2023 13:10 [id number] 11/26/2023 14:00 MCB/MODL ADMISSION POC Pt c/o Lt arm pain, rates LT arm pain at 8-9. Ice pack to LT arm. Pt requesting pain medication; phoned [facility], LAVELLE, notified of c/o pain. LAVELLE will review chart BP 137/60 HR 70 after fluid bolus Pt resting in bed, BP 76/35 and BP 80/40 HR 50 per steven BP Pt denies any dizziness at this time.. Notified Dead Inventory Management System Trauma LAVELLE of BP reading with order for fluid bolus. Rapid response Nurse , Jarek In room, notified of BP documented in this encounter [facility] 11-28-2023 Consult note Associated Order (s): IP CONSULT TO CARDIOLOGY General Cardiology Inpatient Cardiology Consult Note Heart & Vascular [facility] Physician Group 11/25/2023 Mari Galvin MD [facility] Tatiana Butt [facility] [id number] CARDIOLOGY CONSULT NOTE Patient Name: Christine Mays Admit Date: [id number] MR #: [id number] : 1945 Physicians: Emmanuel Ricektts MD (Family) Kindly asked to evaluate Christine Mays for chief complaint of near syncope . ASSESSMENT and PLAN: 1. Orthostatic hypotension Multifactorial-consider recent surgery, blood loss (though Hgb within range for her normal), low albumin (2.9 low oncotic pressure) as well as the fact that she is still on atenolol, all of these factors likely contributing to orthostatic hypotension Will hold atenolol for now, can consider using something like losartan at night for blood pressure, may be 25 mg. Given atenolol with alpha blockade properties, this may not be helping her intrinsic vasoreactivity with standing Encourage high-protein consumption, consider supplemental fluids with Gatorade etc., and sure Agree with SOCORRO kong, abdominal binders, patient should also be instructed to stand slowly and move arms and kick legs prior to standing Will await formal echocardiogram read however no severe valvular disease identified on exam If necessary consider Florinef or midodrine however would focus on increasing nutrition and supplementing with Ensure Just for completeness sake will send amyloid labs though again echocardiogram does not seem consistent The following Vizient risk variables were noted and present on admission: Admitted with these risk variables:Protein Calorie Malnutrition. Please see assessment and plan for further details. Thank you for this interesting clinical case. Cardiology will follow peripherally until results of blood work are back Mari Galvin MD, [facility] Cardiovascular Medicine [facility] History of Present Illness: This is a 78-year-old female with past medical history of hypertension who had a mechanical fall from standing, and is now exhibiting orthostatic hypotension. Ordinarily at home patient states that she eats well, does not have any dizziness upon standing. She has no exertional chest pain or pressure or shortness of breath. Objective History: Past Medical History: Diagnosis Date Anxiety Chronic back pain DDD (degenerative disc disease), lumbar Disease of thyroid gland Headache, tension-type Spinal stenosis Past Surgical History: Procedure Laterality Date BREAST REDUCTION CHOLECYSTECTOMY FOOT SURGERY Right HYSTERECTOMY ORIF HUMERUS Left 11/26/2023 Procedure: ORIF left proximal humerous; Surgeon: Avery Das MD; Location: Main OR; Service: Orthopedic PILONIDAL CYST TRIGGER FINGER RELEASE Left Family History Problem Relation Age of Onset Heart disease Father Heart attack Sister Heart disease Brother Heart disease Brother Social History Socioeconomic History Marital status: Tobacco Use Smoking status: Former Packs/day: .5 Types: Cigarettes Smokeless tobacco: Never Vaping Use Vaping Use: Never used Substance and Sexual Activity Alcohol use: Yes Comment: wine rarely Drug use: No Sexual activity: Not Currently Social Determinants of Health Food Insecurity: No Food Insecurity (11/26/2023) Hunger Vital Sign Worried About Running Out of Food in the Last Year: Never true Ran Out of Food in the Last Year: Never true Transportation Needs: No Transportation Needs (11/26/2023) PRAPARE - Transportation Lack of Transportation (Medical): No Lack of Transportation (Non-Medical): No Housing Stability: High Risk (11/26/2023) Housing Stability Vital Sign Unable to Pay for Housing in the Last Year: No Number of Places Lived in the Last Year: 16 Unstable Housing in the Last Year: No Tobacco & Smokeless: Tobacco Use Smoking status: Former Packs/day: .5 Types: Cigarettes Smokeless tobacco: Never Allergy Information: I have reviewed the patient's allergies. Nickel and Codeine Home Medications: Outpatient Medications as of 11/28/2023 Medication Sig acetaminophen (TYLENOL ER) 650 MG CR tablet Take 2 (two) tablets (1,300 mg total) by mouth At NOON . atenoloL (TENORMIN) 25 MG tablet Take 1 (one) tablet (25 mg total) by mouth daily . levothyroxine (SYNTHROID, LEVOTHROID) 112 MCG tablet Take 1 (one) tablet (112 mcg total) by mouth once daily . meloxicam (MOBIC) 7.5 MG tablet Take 1 (one) tablet to 2 (two) tablets (7.5-15 mg total) by mouth daily . traZODone (DESYREL) 50 MG tablet Take 1 (one) tablet (50 mg total) by mouth nightly . triamterene-hydrochlorothiazide (MAXZIDE) 75-50 mg per tablet Take 1 (one) tablet by mouth daily . gabapentin (NEURONTIN) 300 MG capsule Take 1 (one) capsule (300 mg total) by mouth every 12 (twelve) hours . LORazepam (ATIVAN) 0.5 MG tablet Take 1 (one) tablet (0.5 mg total) by mouth as needed . tiZANidine (ZANAFLEX) 2 MG tablet Take 1 Unspecified by mouth . traMADol (ULTRAM) 50 mg tablet Take 1 (one) tablet (50 mg total) by mouth as needed for pain . Inpatient Medications: Current Facility-Administered Medications: acetaminophen (TYLENOL) tablet 650 mg, 650 mg, Oral, Q4H PRN, Lenora Foreman CNP, 650 mg at 11/27/23 1200 aspirin EC tablet 325 mg, 325 mg, Oral, BID, Avery Das MD, 325 mg at 11/28/23 0717 atenoloL (TENORMIN) tablet 25 mg, 25 mg, Oral, Daily, Lenora Foreman CNP, 25 mg at 11/26/23 0802 cholecalciferol (vitamin D3) tablet 800 Units, 800 Units, Oral, Daily, Nayely Mae MD, 800 Units at 11/28/23 0810 cyclobenzaprine (FLEXERIL) tablet 10 mg, 10 mg, Oral, TID PRN, Avery Das MD gabapentin (NEURONTIN) capsule 300 mg, 300 mg, Oral, Q12H, Lenora Foreman CNP, 300 mg at 11/28/23 0524 HYDROcodone-acetaminophen (NORCO) 5-325 mg per tablet 1-2 tablet, 1-2 tablet, Oral, Q4H PRN, Avery Das MD, 1 tablet at 11/28/23 1405 ketorolac (TORADOL) injection 15 mg, 15 mg, Intravenous, Q6H PRN, Avery Das MD, 15 mg at 11/28/23 0717 levothyroxine (SYNTHROID, LEVOTHROID) tablet 112 mcg, 112 mcg, Oral, Daily, Lenora Foreman CNP, 112 mcg at 11/28/23 0524 naloxone (NARCAN) injection 0.1 mg, 0.1 mg, Intravenous, PRN AND Notify physician, , , Until Discontinued AND naloxone (NARCAN) injection 0.4 mg, 0.4 mg, Intravenous, PRN, Lenora Foreman CNP ondansetron (ZOFRAN-ODT) disintegrating tablet 4 mg, 4 mg, Oral, Q6H PRN OR ondansetron (ZOFRAN) injection 4 mg, 4 mg, Intravenous, Q6H PRN, Lenora Foreman CNP, 4 mg at 11/28/23 1045 pantoprazole (PROTONIX) EC tablet 20 mg, 20 mg, Oral, Daily, Avery Das MD, 20 mg at 11/28/23 0811 perflutren lipid microspheres (DEFINITY) 0.143 mg/mL solution 0-10 mL of mixture, 0-10 mL of mixture, Intravenous, Once in imaging, Jie Brock CNP senna-docusate (SENNA-S) 8.6-50 mg per tablet 1 tablet, 1 tablet, Oral, BID, Lenora Foreman CNP, 1 tablet at 11/28/23 0811 traZODone (DESYREL) tablet 50 mg, 50 mg, Oral, Nightly PRN, Juan Erazo CNP, 50 mg at 11/27/23 2221 Review of Systems: A 12 system review of systems was performed, pertinent positives and negatives noted in HPI Physical Examination: BP (!) 146/68 Pulse 68 Temp 97.6 F (36.4 C) (Oral) Resp 18 Ht 5' Wt 64.4 kg (141 lb 15.6 oz) SpO2 96% BMI 27.73 kg/m Constitutional: Female, no acute distress Neck: No elevated jugular venous distension Cardiovascular: Regular rate and rhythm Pulmonary/Chest: Normal respiratory effort, lung sounds are clear. Extremities: No edema Neurological: AOx3, moving all extremities normally Skin: Skin is warm and dry, normal hair pattern Psychiatric: Normal mood and affect, appropriate conversation Intake/Output last 3 shifts: I/O last 3 completed shifts: In: 980 [P.O.:980] Out: 1800 [Urine:1800] Laboratory Data Reviewed: Lab Results Component Value Date GLUCOSE 98 11/28/2023 CALCIUM 8.6 11/28/2023 NA 133 (L) 11/28/2023 K 3.8 11/28/2023 CL 100 11/28/2023 BUN 19 11/28/2023 CREATININE 0.55 (L) 11/28/2023 Results from last 7 days Lab Units 11/28/23 0506 11/27/23 0520 11/26/23 0447 WBC K/mcL -- -- 6.89 HGB g/dL 9.0* < > 10.7* HCT % 27.1* < > 32.1* PLT K/mcL -- -- 218 < > = values in this interval not displayed. No results found for: "HGBA1C" No results found for: "CHOL", "LDLCALC", "LDLDIRECT", "TRIG", HDL No results found for: "CKTOTAL", "CKMB", "HSCRP", "TROPONINI" Lab Results Component Value Date ALBUMIN 2.9 (L) 11/28/2023 Imaging: Pertinent studies reviewed and relevant findings noted. Cardiovascular Studies: Reviewed, echocardiogram formal read pending, no EKG Telemetry: Not on telemetry [facility] Work Phone: 11-28-2023 Consult note Associated Order (s): IP CONSULT TO CARDIOLOGY General Cardiology Inpatient Cardiology Consult Note Heart & Vascular [facility] Physician Group 11/25/2023 Mari Galvin MD [address] [place] [id number] CARDIOLOGY CONSULT NOTE Patient Name: Christine Mays Admit Date: [id number] MR #: [id number] : 1945 Physicians: Emmanuel Ricketts MD (Family) Kindly asked to evaluate Christine Mays for chief complaint of near syncope . ASSESSMENT and PLAN: 1. Orthostatic hypotension Multifactorial-consider recent surgery, blood loss (though Hgb within range for her normal), low albumin (2.9 low oncotic pressure) as well as the fact that she is still on atenolol, all of these factors likely contributing to orthostatic hypotension Will hold atenolol for now, can consider using something like losartan at night for blood pressure, may be 25 mg. Given atenolol with alpha blockade properties, this may not be helping her intrinsic vasoreactivity with standing Encourage high-protein consumption, consider supplemental fluids with Gatorade etc., and sure Agree with SOCORRO kong, abdominal binders, patient should also be instructed to stand slowly and move arms and kick legs prior to standing Will await formal echocardiogram read however no severe valvular disease identified on exam If necessary consider Florinef or midodrine however would focus on increasing nutrition and supplementing with Ensure Just for completeness sake will send amyloid labs though again echocardiogram does not seem consistent The following Vizient risk variables were noted and present on admission: Admitted with these risk variables:Protein Calorie Malnutrition. Please see assessment and plan for further details. Thank you for this interesting clinical case. Cardiology will follow peripherally until results of blood work are back Mari Galvin MD, [facility] Cardiovascular Medicine [facility] History of Present Illness: This is a 78-year-old female with past medical history of hypertension who had a mechanical fall from standing, and is now exhibiting orthostatic hypotension. Ordinarily at home patient states that she eats well, does not have any dizziness upon standing. She has no exertional chest pain or pressure or shortness of breath. Objective History: Past Medical History: Diagnosis Date Anxiety Chronic back pain DDD (degenerative disc disease), lumbar Disease of thyroid gland Headache, tension-type Spinal stenosis Past Surgical History: Procedure Laterality Date BREAST REDUCTION CHOLECYSTECTOMY FOOT SURGERY Right HYSTERECTOMY ORIF HUMERUS Left 11/26/2023 Procedure: ORIF left proximal humerous; Surgeon: Avery Das MD; Location: Main OR; Service: Orthopedic PILONIDAL CYST TRIGGER FINGER RELEASE Left Family History Problem Relation Age of Onset Heart disease Father Heart attack Sister Heart disease Brother Heart disease Brother Social History Socioeconomic History Marital status: Tobacco Use Smoking status: Former Packs/day: .5 Types: Cigarettes Smokeless tobacco: Never Vaping Use Vaping Use: Never used Substance and Sexual Activity Alcohol use: Yes Comment: wine rarely Drug use: No Sexual activity: Not Currently Social Determinants of Health Food Insecurity: No Food Insecurity (11/26/2023) Hunger Vital Sign Worried About Running Out of Food in the Last Year: Never true Ran Out of Food in the Last Year: Never true Transportation Needs: No Transportation Needs (11/26/2023) PRAPARE - Transportation Lack of Transportation (Medical): No Lack of Transportation (Non-Medical): No Housing Stability: High Risk (11/26/2023) Housing Stability Vital Sign Unable to Pay for Housing in the Last Year: No Number of Places Lived in the Last Year: 16 Unstable Housing in the Last Year: No Tobacco & Smokeless: Tobacco Use Smoking status: Former Packs/day: .5 Types: Cigarettes Smokeless tobacco: Never Allergy Information: I have reviewed the patient's allergies. Nickel and Codeine Home Medications: Outpatient Medications as of 11/28/2023 Medication Sig acetaminophen (TYLENOL ER) 650 MG CR tablet Take 2 (two) tablets (1,300 mg total) by mouth At NOON . atenoloL (TENORMIN) 25 MG tablet Take 1 (one) tablet (25 mg total) by mouth daily . levothyroxine (SYNTHROID, LEVOTHROID) 112 MCG tablet Take 1 (one) tablet (112 mcg total) by mouth once daily . meloxicam (MOBIC) 7.5 MG tablet Take 1 (one) tablet to 2 (two) tablets (7.5-15 mg total) by mouth daily . traZODone (DESYREL) 50 MG tablet Take 1 (one) tablet (50 mg total) by mouth nightly . triamterene-hydrochlorothiazide (MAXZIDE) 75-50 mg per tablet Take 1 (one) tablet by mouth daily . gabapentin (NEURONTIN) 300 MG capsule Take 1 (one) capsule (300 mg total) by mouth every 12 (twelve) hours . LORazepam (ATIVAN) 0.5 MG tablet Take 1 (one) tablet (0.5 mg total) by mouth as needed . tiZANidine (ZANAFLEX) 2 MG tablet Take 1 Unspecified by mouth . traMADol (ULTRAM) 50 mg tablet Take 1 (one) tablet (50 mg total) by mouth as needed for pain . Inpatient Medications: Current Facility-Administered Medications: acetaminophen (TYLENOL) tablet 650 mg, 650 mg, Oral, Q4H PRN, Lenora Foreman CNP, 650 mg at 11/27/23 1200 aspirin EC tablet 325 mg, 325 mg, Oral, BID, Avery Das MD, 325 mg at 11/28/23 0717 atenoloL (TENORMIN) tablet 25 mg, 25 mg, Oral, Daily, Lenora Foreman CNP, 25 mg at 11/26/23 0802 cholecalciferol (vitamin D3) tablet 800 Units, 800 Units, Oral, Daily, Nayely Mae MD, 800 Units at 11/28/23 0810 cyclobenzaprine (FLEXERIL) tablet 10 mg, 10 mg, Oral, TID PRN, Avery Das MD gabapentin (NEURONTIN) capsule 300 mg, 300 mg, Oral, Q12H, Lenora Foreman CNP, 300 mg at 11/28/23 0524 HYDROcodone-acetaminophen (NORCO) 5-325 mg per tablet 1-2 tablet, 1-2 tablet, Oral, Q4H PRN, Avrey Das MD, 1 tablet at 11/28/23 1405 ketorolac (TORADOL) injection 15 mg, 15 mg, Intravenous, Q6H PRN, Avery Das MD, 15 mg at 11/28/23 0717 levothyroxine (SYNTHROID, LEVOTHROID) tablet 112 mcg, 112 mcg, Oral, Daily, Lenora Foreman CNP, 112 mcg at 11/28/23 0524 naloxone (NARCAN) injection 0.1 mg, 0.1 mg, Intravenous, PRN AND Notify physician, , , Until Discontinued AND naloxone (NARCAN) injection 0.4 mg, 0.4 mg, Intravenous, PRN, Lenora Foreman CNP ondansetron (ZOFRAN-ODT) disintegrating tablet 4 mg, 4 mg, Oral, Q6H PRN OR ondansetron (ZOFRAN) injection 4 mg, 4 mg, Intravenous, Q6H PRN, Lenora Foreman CNP, 4 mg at 11/28/23 1045 pantoprazole (PROTONIX) EC tablet 20 mg, 20 mg, Oral, Daily, Avery Das MD, 20 mg at 11/28/23 0811 perflutren lipid microspheres (DEFINITY) 0.143 mg/mL solution 0-10 mL of mixture, 0-10 mL of mixture, Intravenous, Once in imaging, Jie Brock CNP senna-docusate (SENNA-S) 8.6-50 mg per tablet 1 tablet, 1 tablet, Oral, BID, Lenora Foreman CNP, 1 tablet at 11/28/23 0811 traZODone (DESYREL) tablet 50 mg, 50 mg, Oral, Nightly PRN, Juan Erazo CNP, 50 mg at 11/27/23 2221 Review of Systems: A 12 system review of systems was performed, pertinent positives and negatives noted in HPI Physical Examination: BP (!) 146/68 Pulse 68 Temp 97.6 F (36.4 C) (Oral) Resp 18 Ht 5' Wt 64.4 kg (141 lb 15.6 oz) SpO2 96% BMI 27.73 kg/m Constitutional: Female, no acute distress Neck: No elevated jugular venous distension Cardiovascular: Regular rate and rhythm Pulmonary/Chest: Normal respiratory effort, lung sounds are clear. Extremities: No edema Neurological: AOx3, moving all extremities normally Skin: Skin is warm and dry, normal hair pattern Psychiatric: Normal mood and affect, appropriate conversation Intake/Output last 3 shifts: I/O last 3 completed shifts: In: 980 [P.O.:980] Out: 1800 [Urine:1800] Laboratory Data Reviewed: Lab Results Component Value Date GLUCOSE 98 11/28/2023 CALCIUM 8.6 11/28/2023 NA 133 (L) 11/28/2023 K 3.8 11/28/2023 CL 100 11/28/2023 BUN 19 11/28/2023 CREATININE 0.55 (L) 11/28/2023 Results from last 7 days Lab Units 11/28/23 0506 11/27/23 0520 11/26/23 0447 WBC K/mcL -- -- 6.89 HGB g/dL 9.0* < > 10.7* HCT % 27.1* < > 32.1* PLT K/mcL -- -- 218 < > = values in this interval not displayed. No results found for: "HGBA1C" No results found for: "CHOL", "LDLCALC", "LDLDIRECT", "TRIG", HDL No results found for: "CKTOTAL", "CKMB", "HSCRP", "TROPONINI" Lab Results Component Value Date ALBUMIN 2.9 (L) 11/28/2023 Imaging: Pertinent studies reviewed and relevant findings noted. Cardiovascular Studies: Reviewed, echocardiogram formal read pending, no EKG Telemetry: Not on telemetry Associated Order(s): IP CONSULT TO HOME HEALTH HUB Care Management Consult Note Date: 11/27/2023 Time: 12:23 PM Patient Name: Christine Mays Date of : 1945 Discharge Plan: Plan A: Home Health Care Services Plan A : Post Acute Patient Choice 1: [facility] Plan B: Home Assessment and Background Information: Living Arrangements: Spouse/significant other Support Systems: Spouse/significant other Assistance Needed: yes Type of Residence: Private residence Prior to Admission Home Care Services: No Current Home Equipment: Cane, Tub/Shower chair Holistic Assessment Medication adherence problem:: No History of falls in last 6 months:: (!) Yes Family aware of the patient's advance care planning wishes:: Yes Do you have any cultural/spiritual connections or beliefs that would impact how we deliver your care?: No Chronic pain:: (!) Yes Location of chronic pain:: Back Chronic pain timing:: Intermittent Accepted for services? And which agency? accepted Referrals sent to (names of agencies) (if [facility], include region)? vinny is currently receiving services from [facility] placed: yes- sn/pt/ot Verify the demographics (residential address) [address] [place] [address]. Who is your family physician/primary care physician? Emmanuel Ricketts MD Following physician will be (list first name/last name) possibly Dr. Mae or Dr. Das Do you have a caregiver and/or teachable caregiver (list relationship, name & phone #)? Aliza Bazzi (Child) [phone] Are there any special precautions or safety concerns (isolation precautions, etc)? none Estimated Discharge Date (JANICE): 11/27/23 Associated Order(s): IP CONSULT TO CARE MANAGEMENT Care Management Consult Note Date: 11/27/2023 Time: 12:09 PM Patient Name: Christine Mays Date of : 1945 Reason for Consult: Discharge Plan: Plan A: Home Health Care Services Plan A : Post Acute Patient Choice 1: [facility] Plan B: Home Discharging Transportation Plan: Discharge Plan Status: Met with the patient and educated to care management role. Patient resides at home with her whom she provides care for. Patient confirmed she would like to receive home health care services on discharge and a list was provided. Patient is aware of the home bound requirement under Medicare. Patient reports her is currently receiving services from [facility] care and she would like to receive services from them as well. Patient confirmed having all necessary home medical equipment items. Inpatient consult to home health hub placed. Assessment and Background Information: Living Arrangements: Spouse/significant other Support Systems: Spouse/significant other Assistance Needed: yes Type of Residence: Private residence Prior to Admission Home Care Services: No Current Home Equipment: Cane, Tub/Shower chair Holistic Assessment Medication adherence problem:: No History of falls in last 6 months:: (!) Yes Family aware of the patient's advance care planning wishes:: Yes Do you have any cultural/spiritual connections or beliefs that would impact how we deliver your care?: No Chronic pain:: (!) Yes Location of chronic pain:: Back Chronic pain timing:: Intermittent [facility] PHYSICAL THERAPY EVALUATION and TREATMENT NOTE Dx: s/p ORIF left proximal humerus PHYSICAL THERAPY EVALUATION Skilled Therapy Needs After Discharge Anticipate Resolution of Current Assessment Limitations Including: Mechanical Barriers, Social Support, Pain Are Skilled Therapy Services Needed After Discharge: Yes Intensity of Skilled Therapy: 2-3 days per week Anticipated Duration of Skilled Therapy: > 30 days DME Recommendation: Cane (owns) Rehab Potential: Good Outcomes Measures Prior Function - Basic Mobility Raw Score: 24 Points Prior Function - Basic Mobility % Impaired: 0% AM-PAC Basic Mobility Raw Score: 20 Points AM-PAC Basic Mobility % Impaired: 33.32% Physical Therapy Assessment History: The following factors influence the patient's participation in the PT plan of care: Personal Factors: Age, Social Barriers Environmental Factors: Family unavailable to assist The following co-morbidities (from this admission or prior) influence the patient's participation in this plan of care: in H&P Number of History elements affecting this patient's PT plan of care: 3 or more Examination of Body Systems: The patient presents with: Musculoskeletal impairments: Strength, ROM, Pain, Functional Endurance Neurologic Impairments: Balance Cardiopulmonary Impairments: Activity Tolerance Integumentary Impairments: Tissue Healing. These impairments result in limitations of Gait, Functional Transfers, Safety, Activity Tolerance. These impairments result in restrictions of Household mobility, Community mobility. Number of Body Systems elements affecting this patient's PT plan of care: 3 or more. Clinical Presentation: The patient's clinical presentation for this PT evaluation is evolving with changing characteristics as evidenced by current PT documentation. Activity Tolerance Activity Tolerance: Tolerates 30 min acitivty with multiple rests Therapy Precautions LUE: Wt bearing as tolerated (per nursing) General Rehab Precautions: Fall risk Strength Assessment Strength RLE RLE Overall Strength: 4/5 Strength LLE LLE Overall Strength: 4/5 Balance Assessment Sitting Balance - Static: Modified independent Sitting Balance - Dynamic: Modified independent Standing Balance - Static: Contact guard assist Wine Specialist - Standing Static: cane (with and without cane) Loss of Balance- Standing Static: intermittent Standing Balance - Dynamic: Contact guard assist Wine Specialist - Standing Dynamic: cane Loss of Balance- Standing Dynamic: intermittent Bed Mobility Rolling: (pt sitting EOB upon arrival) Transfers Sit to Stand: Contact guard assist, Stand by assist Bed to Chair: Contact guard assist, Stand by assist Wine Specialist: cane (with and without cane) Gait/Locomotion Gait Assistance: Contact guard assist Assistive Device: (no AD) Distance: 120 Feet Rest Breaks: Yes Rest Break Position: seated Rest Break Duration: 1 min Additional Gait Trial 2: Yes Gait Assistance Trial 2: Contact guard assist, Stand by assist Assistive Device Trial 2: cane Distance Trial 2: 150 Rest Breaks Trial 2: No Pattern: step through, shuffle, decreased ronan (steps per minute) Weight Bearing Status: able to maintain Gait Loss(es) of Balance: intermittent (mild unsteadiness, improves when using cane) Environment/Terrain: open/community environment, multiple distractions Stair Management Technique: R rail up/L rail down, step-to pattern Stair Management Assistance: Contact guard assist Number of Stairs: 4 Home Living Obtained Home Living and PLOF info from: Patient Lives With: Spouse Type of Home: House Home Layout: One level Steps to enter home: Ramped entrance Mobility Equipment: Cane, Wheeled walker Prior Level of Function Level of Tift - Transfers/Ambulation/Mobility: Independent with functional transfers, Independent with household ambulation, Independent with community ambulation (no AD used TRANSPORTATION COORDINATOR. 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 ) PHYSICAL THERAPY TREATMENT NOTE Total Treatment Time (Total Session Time): 35 Minutes Total Timed Code Treatment Minutes: 10 Minutes Gait Training Skilled Intervention Provided: verbal cues, tactile cues, demonstration, patient education For: device adjustment fit to patient, device management and safe use of device, fall prevention, gait sequence, self-monitoring during activity, stairs sequence/technique Resulting in: improved activity tolerance, improved functional independence, increased insight into deficits, improved performance, improved safety, increased self-management of symptoms and impairments, decreasing fall risk Additional Treatment Details Pt educated to use cane for mobility upon discharge for improved balance and decreased risk for falls. Patient demonstrated proper and safe use of AD with verbalized understanding. Pt sitting EOB at end of session with bed alarm on. Handoff provided to nursing that pt would like [facility] PT upon discharge. Past Medical History: Diagnosis Date Anxiety Chronic back pain DDD (degenerative disc disease), lumbar Disease of thyroid gland Headache, tension-type Spinal stenosis Past Surgical History: Procedure Laterality Date BREAST REDUCTION CHOLECYSTECTOMY FOOT SURGERY Right HYSTERECTOMY PILONIDAL CYST TRIGGER FINGER RELEASE Left For complete objective data, detailed plan of care and patient education refer to: PT Evaluation flowsheet, PT Evaluation and Treatment flowsheet, PT Treatment flowsheet, patient Plan of Care, Plan of Care progress note, and Patient Education. This note stands as the current Discharge Summary upon patient discharge from the hospital or completion of Physical Therapy Plan. Associated Order(s): OH IP CONSULT TO OSTEOPORORSIS MANAGEMENT Demographics: Initial Screenin11/27/2023 Date of Fracture: 11/25/2023 Christine Mays seen for consult for osteoporosis education. Education: Nutrition Counseling Vitamin D Supplementation 800-1000 international units/day Calcium Supplementation 1200mg/ day (in divided doses) (These recommendations can be subject to change per primary care provider discretion) Physical Activity Counseling Weight bearing and muscle strengthening Fall Prevention Lifestyle Counseling Smoking cessation Limiting excessive alcohol intake (no more than an average of 2 drinks per day) Bone Mineral Density Testing National Osteoporosis Foundation recommends for all over age 50 who have sustained a fragility fracture (Own The Bone, [employer], December 2020) Discuss with primary care provider Communication Primary care provider letter generated [facility] ponUp Inbasket: yes Plan: Recommend follow-up with primary care provider for additional bone health evaluation and management. Patient confirms Dr. Ricketts as current primary care provider. Christine was agreeable to the plan and there were no learning barriers encountered. Folder was given with handouts, information added to discharge AVS. ATTENDING PHYSICIAN NAYELY MAE MD PRIMARY CARE PHYSICIAN EMMANUEL RICKETTS MD ADMITTING PHYSICIAN NAYELY MAE MD CONSULTING PHYSICIAN NAYELY MAE MD REASON FOR CONSULTATION Left proximal humerus fracture. HISTORY Christine is an 78-year-old patient with a mechanical fall yesterday sustaining a proximal humerus fracture, admitted to the trauma service. 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 She does not use a cane, does not use a walker. PAST MEDICAL HISTORY Anxiety, hypothyroidism, migraine headaches, spinal stenosis. SURGERIES She had breast reduction surgery, cholecystectomy, foot surgery, hysterectomy, pilonidal cyst, left hand trigger release. SOCIAL HISTORY She is a former smoker. Does not smoke currently. Drinks on a social basis. FAMILY HISTORY Heart disease. ALLERGIES Nickel and codeine. MEDICATIONS Include Tylenol, Tenormin, Neurontin, Synthroid, Ativan, Mobic, Zanaflex, Ultram, Desyrel, Maxzide. REVIEW OF SYSTEMS Left shoulder pain. X-ray and CAT scan of the left shoulder were reviewed. The x-ray and CAT scan show a surgical neck fracture with no evidence of humeral head involvement and unfortunately there appears to be 75% anterior displacement of the humeral shaft in comparison to the head anteriorly. PHYSICAL EXAM General: The patient is awake, alert, and oriented x3. Musculoskeletal: Right upper extremity atraumatic. Lower extremities atraumatic. Left upper extremity neurologically intact. 2+ pulses. Full range of motion throughout the left hand, wrist, and elbow. Ecchymosis and edema at the shoulder. IMPRESSION Left proximal humerus fracture. PLAN As an 78-year-old caregiver of her who is basically wheelchair-bound, we talked about surgical versus nonsurgical intervention; however, with the severity of the displacement of the humeral head and neck, we are going to proceed forward with open reduction and internal fixation. All risks and complications were discussed. D 11/26/2023 10:51 [id number] 11/26/2023 11:36 MCB/MODL documented in this encounter [facility] 11-28-2023 Note Formatting of this n ote might be different from the original. This rn called report to fox rowe assuming care of patient going to room 4718. [facility] 11-28-2023 Note Attestation signed by Nayely Mae MD at 11/28/2023 12:23 PM TRAUMA/ ACUTE CARE SURGERY ATTENDING NOTE Please link this note as an addendum to the LAVELLE note with the same day of service. The patient was seen and examined by me, the attending trauma surgeon, on multidisciplinary rounds on the date of service listed above. I have reviewed the LAVELLE note, labs, studies, and lead sales consultant notes. I have reviewed and agree with the documented history, exam, and plan of care, with the following additions and corrections: Today: Christine Mays is a 78 y.o. female presenting with L humerus fx following fall s/p fixation. Pt with ABLA 2/2 trauma and OR; stable. Pt with ongoing orthostatic hotn and near syncope despite fluid resuscitation, hgb WNL, SOCORRO hose. Will ask cardiology to eval, check echo. Therapies, home meds, ASA for DVT ppx. Dispo planning. Pertinent labs and imaging personally reviewed with evidence of L humerus fx, osteopenia, ABLA. A comprehensive review of systems was performed with the pt and all systems reviewed were negative except those listed in the HPI. near-syncope. Dayday Mae MD, FACS, DABS, DABA Trauma, Acute Care Surgery, Surgical Critical Care, and Neurocritical Care [facility] DAILY PROGRESS NOTE Trauma: Admitted with these risk variables:Electrolyte Disturbance: Hypokalemia and Alkalosis. Please see assessment and plan for further details. INJURIES: Left displaced surgical neck of the proximal humerus Ecchymosis of left scalp Left arm paresthesias ASSESSMENT & PLAN/ACTIVE MEDICAL PROBLEMS: Closed head injury - hit head, no LOC. CT H negative, MRI C spine shows degenerative disc disease without evidence of spinal cord injury Left humerus fx - s/p ORIF L proximal humerus fx by Dr. Das, pain control, add daily vitamin D, Therapies Near syncope- 1 L fluid given and held PB meds yesterday; today will place socorro hose, give additional fluids; ECHO ordered, Cards c/s SURGERIES/PROCEDURES: Date Operation/Procedure Provider Name 11/26/2023 Open reduction and internal fixation of left proximal humerus fracture Dr. Das INCIDENTAL FINDINGS: Cardiomegaly Hiatal hernia Right parietal convexity meningioma RESOLVED PROBLEMS: Hypokalemia Alkalosis Lateral neck strain Let arm paresthesias DISPOSITION - Home with [facility] ========= CHIEF COMPLAINT/ HPI / PFSHx / EVENTS OVER LAST 24HRS: No overnight events. Pt with near syncope again this Am with dizziness and blurred vision. Pain otherwise controlled REVIEW OF SYSTEMS: Other than the above items the remainder of the complete ROS is otherwise unchanged from admission. PHYSICAL EXAM: Temp: [97.2 degrees F (36.2 degrees C)-98.1 degrees F (36.7 degrees C)] 97.6 degrees F (36.4 degrees C) Heart Rate: [52-82] 68 Resp: [14-16] 16 BP: (89-146)/(45-68) 146/68 GENERAL: Appears age appropriate. No acute distress. NEUROLOGICAL: Alert and oriented X 3. Follows commands with extremities. Strength 4/5 in LUE. GCS = 15 CARDIOVASCULAR: Regular rate and rhythm. No peripheral edema noted. 2+ pulses radial/DP/PT bilaterally. RESPIRATORY: Respiratory effort unlabored without use of accessory muscles. RA ABDOMINAL: Rounded, soft, nontender, nondistended, No guarding or peritoneal signs. MUSCULOSKELETAL: Left arm with soft tissue swelling and decreased strength. Echymossis present to posterior distal humerus/ elbow. Let chest wall , breast SKIN: Skin warm and dry. No rashes or lesions. Intake/Output Summary (Last 24 hours) at 11/28/2023 1216 Last data filed at 11/28/2023 0752 Gross per 24 hour Intake 1080 ml Output 2000 ml Net -920 ml IMAGING [briefly note any results pertinent to today's evaluation]: None new LABS Lab Results Component Value Date WBC 6.89 11/26/2023 HGB 9.0 (L) 11/28/2023 HCT 27.1 (L) 11/28/2023 MCV 96.1 11/26/2023 PLT 218 11/26/2023 RBC 3.34 (L) 11/26/2023 Lab Results Component Value Date GLUCOSE 98 11/28/2023 CALCIUM 8.6 11/28/2023 NA 133 (L) 11/28/2023 K 3.8 11/28/2023 CL 100 11/28/2023 BUN 19 11/28/2023 CREATININE 0.55 (L) 11/28/2023 No results found for: "ALT", "AST", "GGT", "ALKPHOS", "BILITOT" DAILY CHECKLIST: *Need for Restraints: No *Need for Urinary Catheter: No *Need for Central Access Devices: No *Stress Ulcer Prophylaxis: Protonix and diet *VTE Prophylaxis (Body mass index is 27.73 kg/m ., Estimated Creatinine Clearance: 58.6 mL/min (A) (by C-G formula based on SCr of 0.55 mg/dL (L)).): 324 aspirin *Code Status: Full AUTHENTICATED BY NAYELY MAE, ON 11/28/2023 12:23:22 [facility] 11-28-2023 Note ATTENDING PHYSICIAN NAYELY MAE MD PRIMARY CARE PHYSICIAN EMMANUEL RICKETTS MD ADMITTING PHYSICIAN NAYELY MAE MD CONSULTING PHYSICIAN NAYELY MAE MD She at this point in time is postoperative day #2 ORIF, left proximal humerus. She is in good spirits, feels like she can transition home today. Wound is clean, dry, intact. No erythema. No drainage. No lymphangitis. No cellulitis. Vital signs are stable, afebrile. Hemoglobin 9.0. IMPRESSION Postoperative day 2 open reduction, internal fixation, left proximal humerus. PLAN At this point in time, she can transition home. I will see her in 2 weeks for staple removal. D 11/28/2023 11:41 [id number] 11/28/2023 12:21 MCB/MODL AUTHENTICATED BY AVERY DAS, ON 11/28/2023 17:00:35 [facility] 11-28-2023 Note Formatting of this n ote might be different from the original. Problem: Actual or potential alteration in health Goal: Absence of healthcare acquired conditions Outcome: Partially Met Goal: Knowledge of Interdisciplinary Plan of Care Outcome: Partially Met Goal: Knowledge of Enviroment Outcome: Partially Met Problem: Pain Goal: Reduced pain sensation Outcome: Partially Met Goal: Control of acute pain to acceptable level Outcome: Partially Met Goal: Able to cope with pain Outcome: Partially Met Goal: Able to achieve maximum level of physical functioning Outcome: Partially Met Goal: Able to achieve maximum level of psychosocial functioning Outcome: Partially Met Problem: Falls, Risk of Goal: Absence of falls Outcome: Partially Met Goal: Absence of physical injury Outcome: Partially Met Problem: Pressure Injury, Risk of Goal: Absence of pressure injury Outcome: Partially Met Problem: Venous Thromboembolism, Risk of Goal: Absence of venous thromboembolism Outcome: Partially Met [facility] 11-27-2023 Note Formatting of this n ote might be different from the original. Patient sitting at side of bed. Stating she is very lightheaded. Blood pressure 65/24. Lneora Foreman notified. Order for plasmalyte bolus, BP meds discontinued. Patient returned to bed, BP increased to 101/45 [facility] 11-27-2023 Consult note Associated Order (s): IP CONSULT TO HOME HEALTH HUB Care Management Consult Note Date: 11/27/2023 Time: 12:23 PM Patient Name: Christine Mays Date of : 1945 Discharge Plan: Plan A: Home Health Care Services Plan A : Post Acute Patient Choice 1: [facility] Plan B: Home Assessment and Background Information: Living Arrangements: Spouse/significant other Support Systems: Spouse/significant other Assistance Needed: yes Type of Residence: Private residence Prior to Admission Home Care Services: No Current Home Equipment: Cane, Tub/Shower chair Holistic Assessment Medication adherence problem:: No History of falls in last 6 months:: (!) Yes Family aware of the patient's advance care planning wishes:: Yes Do you have any cultural/spiritual connections or beliefs that would impact how we deliver your care?: No Chronic pain:: (!) Yes Location of chronic pain:: Back Chronic pain timing:: Intermittent Accepted for services? And which agency? accepted Referrals sent to (names of agencies) (if [facility], include region)? vinny is currently receiving services from [facility] placed: yes- sn/pt/ot Verify the demographics (residential address) [address] [place] [address]. Who is your family physician/primary care physician? Emmanuel Ricketts MD Following physician will be (list first name/last name) possibly Dr. Mae or Dr. Das Do you have a caregiver and/or teachable caregiver (list relationship, name & phone #)? Aliza Bazzi (Child) [phone] Are there any special precautions or safety concerns (isolation precautions, etc)? none Estimated Discharge Date (JANICE): 11/27/23 [facility] 11-27-2023 Consult note Associated Order (s): IP CONSULT TO CARE MANAGEMENT Care Management Consult Note Date: 11/27/2023 Time: 12:09 PM Patient Name: Christine Mays Date of : 1945 Reason for Consult: Discharge Plan: Plan A: Home Health Care Services Plan A : Post Acute Patient Choice 1: [facility] Plan B: Home Discharging Transportation Plan: Discharge Plan Status: Met with the patient and educated to care management role. Patient resides at home with her whom she provides care for. Patient confirmed she would like to receive home health care services on discharge and a list was provided. Patient is aware of the home bound requirement under Medicare. Patient reports her is currently receiving services from [facility] health care and she would like to receive services from them as well. Patient confirmed having all necessary home medical equipment items. Inpatient consult to home health hub placed. Assessment and Background Information: Living Arrangements: Spouse/significant other Support Systems: Spouse/significant other Assistance Needed: yes Type of Residence: Private residence Prior to Admission Home Care Services: No Current Home Equipment: Cane, Tub/Shower chair Holistic Assessment Medication adherence problem:: No History of falls in last 6 months:: (!) Yes Family aware of the patient's advance care planning wishes:: Yes Do you have any cultural/spiritual connections or beliefs that would impact how we deliver your care?: No Chronic pain:: (!) Yes Location of chronic pain:: Back Chronic pain timing:: Intermittent BENJAMIN Flores [facility] 11-27-2023 Note Formatting of this n ote might be different from the original. Pt BP 93/53. Lenora Foreman NP notified. No new orders at this time. [facility] 11-27-2023 Note ATTENDING PHYSICIAN NAYELY MAE MD PRIMARY CARE PHYSICIAN EMMANUEL RICKETTS MD ADMITTING PHYSICIAN NAYELY MAE MD CONSULTING PHYSICIAN NAYELY MAE MD Christine is postop day 1 ORIF left proximal humerus fracture. She is in good spirits this morning. PHYSICAL EXAMINATION Vital Signs: Stable. Extremities: Wound is clean, dry, intact. No erythema. No drainage. No lymphangitis. No cellulitis. Full range of motion hand, wrist, and elbow. Left shoulder has good passive range of motion. IMPRESSION Postoperative day 1 left humerus open-reduction internal fixation. PLAN At this point in time, she can transition home with home physical therapy. I will see her in 2 weeks in my [place] office for x-ray and staple removal. D 11/27/2023 11:24 [id number] 11/27/2023 11:59 MCB/MODL AUTHENTICATED BY AVERY DAS, ON 11/27/2023 17:25:05 [facility] 11-27-2023 Note Formatting of this n ote is different from the original. Physical Therapy Plan of Care Certification Note Medicare billing rules require the provider to review and certify the physical therapy plan of care for patients in observation or outpatient status. This co-signature is to electronically certify that the above-named patient, who is under my care, requires skilled therapy services as described in the treatment plan below. I further certify that the services outlined in this plan are skilled and medically necessary. I have reviewed this plan of care for rehabilitation services and recommend that these services continue until the patient is discharged from this hospitalization or the patient is discharged from physical therapy services. Coded Admission Diagnosis Hypokalemia [E87.6] Humerus head fracture, left, with routine healing, subsequent encounter [S42.292D] Encounter for post fall examination [Z04.3] Closed nondisplaced fracture of surgical neck of left humerus, unspecified fracture morphology, initial encounter [S42.215A] PT Functional Diagnosis: R26.81 Unsteadiness on feet PT Goals Encounter Problems (Active) Problem: Impaired Strength Dates: Start: 11/27/23 Disciplines: PT Goal: PT- Strength Other Dates: Start: 11/27/23 Expected End: 12/03/23 Description: PT- Patient to be independent with HEP to improve functional mobility, strength, and safety Disciplines: PT Intervention: Education, Therapeutic exercise Frequency: PRN Dates: Start: 11/27/23 Problem: Mobility - Impaired Dates: Start: 11/27/23 Disciplines: PT Goal: pt- bed mobility Dates: Start: 11/27/23 Expected End: 12/03/23 Description: PT - Patient will perform bed mobility with independence to improve functional mobility and safety. Disciplines: PT Goal: PT- sit to stand transfer Dates: Start: 11/27/23 Expected End: 12/03/23 Description: PT - Patient will perform sit to/from stand transfer with modified independence to improve functional mobility and safety. Disciplines: PT Goal: PT- dynamic balance Dates: Start: 11/27/23 Expected End: 12/03/23 Description: PT - Patient will perform standing dynamic balance activities with device with stand by assist to improve functional mobility and safety. Disciplines: PT Goal: PT- ambulation Dates: Start: 11/27/23 Expected End: 12/03/23 Description: PT - Patient will ambulate 250 feet with device with stand by assist to improve functional mobility and safety. Disciplines: PT Goal: PT- stair climbing Dates: Start: 11/27/23 Expected End: 12/03/23 Description: PT - Patient will ascend and descend 2 stairs with non-reciprocal technique with 1 rail with modified independence to improve functional mobility and safety. Disciplines: PT Intervention: Education, Assistive device training Frequency: PRN Dates: Start: 11/27/23 Intervention: Education, Bed mobility training Frequency: PRN Dates: Start: 11/27/23 Intervention: Education, Balance training Frequency: PRN Dates: Start: 11/27/23 Description: REMINDER(s): Reinforce education provided by Physical Therapy related to balance training. Intervention: Education, Gait training Frequency: PRN Dates: Start: 11/27/23 Intervention: Education, stair training Frequency: PRN Dates: Start: 11/27/23 Intervention: Education, Therapeutic exercise Frequency: PRN Dates: Start: 11/27/23 Intervention: Education, Transfer training Frequency: PRN Dates: Start: 11/27/23 Intervention: Education, Precautions Frequency: PRN Dates: Start: 11/27/23 Frequency of Treatment: 5 days per week This physical Therapy Plan of Care will be carried out until: 1.) The PT plan has been resolved or 2.) The patient is discharged from the acute care hospital T [facility] 11-27-2023 Consult note Formatting of th is note is different from the original. Physical Therapy PHYSICAL THERAPY EVALUATION and TREATMENT NOTE Dx: s/p ORIF left proximal humerus PHYSICAL THERAPY EVALUATION Skilled Therapy Needs After Discharge Anticipate Resolution of Current Assessment Limitations Including: Mechanical Barriers, Social Support, Pain Are Skilled Therapy Services Needed After Discharge: Yes Intensity of Skilled Therapy: 2-3 days per week Anticipated Duration of Skilled Therapy: > 30 days DME Recommendation: Cane (owns) Rehab Potential: Good Outcomes Measures Prior Function - Basic Mobility Raw Score: 24 Points Prior Function - Basic Mobility % Impaired: 0% AM-PAC Basic Mobility Raw Score: 20 Points AM-PAC Basic Mobility % Impaired: 33.32% Physical Therapy Assessment History: The following factors influence the patient's participation in the PT plan of care: Personal Factors: Age, Social Barriers Environmental Factors: Family unavailable to assist The following co-morbidities (from this admission or prior) influence the patient's participation in this plan of care: in H&P Number of History elements affecting this patient's PT plan of care: 3 or more Examination of Body Systems: The patient presents with: Musculoskeletal impairments: Strength, ROM, Pain, Functional Endurance Neurologic Impairments: Balance Cardiopulmonary Impairments: Activity Tolerance Integumentary Impairments: Tissue Healing. These impairments result in limitations of Gait, Functional Transfers, Safety, Activity Tolerance. These impairments result in restrictions of Household mobility, Community mobility. Number of Body Systems elements affecting this patient's PT plan of care: 3 or more. Clinical Presentation: The patient's clinical presentation for this PT evaluation is evolving with changing characteristics as evidenced by current PT documentation. Activity Tolerance Activity Tolerance: Tolerates 30 min acitivty with multiple rests Therapy Precautions LUE: Wt bearing as tolerated (per nursing) General Rehab Precautions: Fall risk Strength Assessment Strength RLE RLE Overall Strength: 4/5 Strength LLE LLE Overall Strength: 4/5 Balance Assessment Sitting Balance - Static: Modified independent Sitting Balance - Dynamic: Modified independent Standing Balance - Static: Contact guard assist Wine Specialist - Standing Static: cane (with and without cane) Loss of Balance- Standing Static: intermittent Standing Balance - Dynamic: Contact guard assist Wine Specialist - Standing Dynamic: cane Loss of Balance- Standing Dynamic: intermittent Bed Mobility Rolling: (pt sitting EOB upon arrival) Transfers Sit to Stand: Contact guard assist, Stand by assist Bed to Chair: Contact guard assist, Stand by assist Wine Specialist: cane (with and without cane) Gait/Locomotion Gait Assistance: Contact guard assist Assistive Device: (no AD) Distance: 120 Feet Rest Breaks: Yes Rest Break Position: seated Rest Break Duration: 1 min Additional Gait Trial 2: Yes Gait Assistance Trial 2: Contact guard assist, Stand by assist Assistive Device Trial 2: cane Distance Trial 2: 150 Rest Breaks Trial 2: No Pattern: step through, shuffle, decreased ronan (steps per minute) Weight Bearing Status: able to maintain Gait Loss(es) of Balance: intermittent (mild unsteadiness, improves when using cane) Environment/Terrain: open/community environment, multiple distractions Stair Management Technique: R rail up/L rail down, step-to pattern Stair Management Assistance: Contact guard assist Number of Stairs: 4 Home Living Obtained Home Living and PLOF info from: Patient Lives With: Spouse Type of Home: House Home Layout: One level Steps to enter home: Ramped entrance Mobility Equipment: Cane, Wheeled walker Prior Level of Function Level of Tift - Transfers/Ambulation/Mobility: Independent with functional transfers, Independent with household ambulation, Independent with community ambulation (no AD used TRANSPORTATION COORDINATOR. 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 ) PHYSICAL THERAPY TREATMENT NOTE Total Treatment Time (Total Session Time): 35 Minutes Total Timed Code Treatment Minutes: 10 Minutes Gait Training Skilled Intervention Provided: verbal cues, tactile cues, demonstration, patient education For: device adjustment fit to patient, device management and safe use of device, fall prevention, gait sequence, self-monitoring during activity, stairs sequence/technique Resulting in: improved activity tolerance, improved functional independence, increased insight into deficits, improved performance, improved safety, increased self-management of symptoms and impairments, decreasing fall risk Additional Treatment Details Pt educated to use cane for mobility upon discharge for improved balance and decreased risk for falls. Patient demonstrated proper and safe use of AD with verbalized understanding. Pt sitting EOB at end of session with bed alarm on. Handoff provided to nursing that pt would like [facility] PT upon discharge. Past Medical History: Diagnosis Date Anxiety Chronic back pain DDD (degenerative disc disease), lumbar Disease of thyroid gland Headache, tension-type Spinal stenosis Past Surgical History: Procedure Laterality Date BREAST REDUCTION CHOLECYSTECTOMY FOOT SURGERY Right HYSTERECTOMY PILONIDAL CYST TRIGGER FINGER RELEASE Left For complete objective data, detailed plan of care and patient education refer to: PT Evaluation flowsheet, PT Evaluation and Treatment flowsheet, PT Treatment flowsheet, patient Plan of Care, Plan of Care progress note, and Patient Education. This note stands as the current Discharge Summary upon patient discharge from the hospital or completion of Physical Therapy Plan. vi [facility] 11-27-2023 Note Attestation signed by Nayely Mae MD at 11/27/2023 2:15 PM TRAUMA/ ACUTE CARE SURGERY ATTENDING NOTE Please link this note as an addendum to the LAVELLE note with the same day of service. The patient was seen and examined by me, the attending trauma surgeon, on multidisciplinary rounds on the date of service listed above. I have reviewed the LAVELLE note, labs, studies, and lead sales consultant notes. I have reviewed and agree with the documented history, exam, and plan of care, with the following additions and corrections: Today: Christine Mays is a 78 y.o. female presenting with L humerus fx following fall s/p fixation. PT with ABLA 2/2 trauma and OR; stable. No acute complains today. Therapies, home meds, ASA for DVT ppx. Dispo planning. Pertinent labs and imaging personally reviewed with evidence of L humerus fx, osteopenia, ABLA. A comprehensive review of systems was performed with the pt and all systems reviewed were negative except those listed in the HPI. Dayday Mae MD, FACS, DABS, DABA Trauma, Acute Care Surgery, Surgical Critical Care, and Neurocritical Care [facility] DAILY PROGRESS NOTE Trauma: Admitted with these risk variables:Electrolyte Disturbance: Hypokalemia and Alkalosis. Please see assessment and plan for further details. INJURIES: Left displaced surgical neck of the proximal humerus Ecchymosis of left scalp Left arm paresthesias ASSESSMENT & PLAN/ACTIVE MEDICAL PROBLEMS: Closed head injury - hit head, no LOC. CT H negative, MRI C spine shows degenerative disc disease without evidence of spinal cord injury Left humerus fx - s/p ORIF L proximal humerus fx by Dr. Das, pain control, add daily vitamin D, Therapies Left arm paresthesias - resolved Hypokalemia - present on admission, resolved. Alkalosis - present on admission, resolved. SURGERIES/PROCEDURES: Date Operation/Procedure Provider Name 11/26/2023 Open reduction and internal fixation of left proximal humerus fracture Dr. Das INCIDENTAL FINDINGS: Cardiomegaly Hiatal hernia Right parietal convexity meningioma RESOLVED PROBLEMS: Hypokalemia Alkalosis Lateral neck strain DISPOSITION - Home? ========= CHIEF COMPLAINT/ HPI / PFSHx / EVENTS OVER LAST 24HRS: Patient with no acute changes reported during the night. She reports some L spine pain. However this is chronic for her. She reports that it feels sharper than normal but then admits she is just worried about her hardware being misplaced during her fall. Imaging reviewed and discussed with patient that all of her previous hardware is intact. REVIEW OF SYSTEMS: Other than the above items the remainder of the complete ROS is otherwise unchanged from admission. PHYSICAL EXAM: Temp: [97.2 degrees F (36.2 degrees C)-98.3 degrees F (36.8 degrees C)] 98 degrees F (36.7 degrees C) Heart Rate: [56-78] 63 Resp: [14-18] 16 BP: (97-160)/(46-96) 97/56 GENERAL: Appears age appropriate. No acute distress. NEUROLOGICAL: Alert and oriented X 3. Follows commands with extremities. Strength 4/5 in LUE. GCS = 15 Neck: Supple, trachea midline, no midline tenderness, step offs, bony crepitus. Collar removed CARDIOVASCULAR: Regular rate and rhythm. No peripheral edema noted. 2+ pulses radial/DP/PT bilaterally. RESPIRATORY: Lungs, clear to auscultation bilaterally. No rhonchi, wheezes or crackles. Respiratory effort unlabored without use of accessory muscles. ABDOMINAL: Rounded, soft, nontender, nondistended, normal bowel sounds. No guarding or peritoneal signs. MUSCULOSKELETAL: Left arm with soft tissue swelling and decreased strength. Echymossis present to posterior distal humerus/ elbow SKIN: Skin warm and dry. No rashes or lesions. Intake/Output Summary (Last 24 hours) at 11/27/2023 0950 Last data filed at 11/26/2023 1600 Gross per 24 hour Intake 200 ml Output 600 ml Net -400 ml IMAGING [briefly note any results pertinent to today's evaluation]: Reviewed LABS Lab Results Component Value Date WBC 6.89 11/26/2023 HGB 9.6 (L) 11/27/2023 HCT 29.5 (L) 11/27/2023 MCV 96.1 11/26/2023 PLT 218 11/26/2023 RBC 3.34 (L) 11/26/2023 Lab Results Component Value Date GLUCOSE 124 (H) 11/27/2023 CALCIUM 8.7 11/27/2023 NA 134 (L) 11/27/2023 K 4.0 11/27/2023 CL 99 11/27/2023 BUN 20 11/27/2023 CREATININE 0.70 11/27/2023 No results found for: "ALT", "AST", "GGT", "ALKPHOS", "BILITOT" DAILY CHECKLIST: *Need for Restraints: No *Need for Urinary Catheter: No *Need for Central Access Devices: No *Stress Ulcer Prophylaxis: Protonix and diet *VTE Prophylaxis (Body mass index is 27.73 kg/m ., Estimated Creatinine Clearance: 46 mL (more content not included)... [facility] 11-27-2023 Consult note Associated Order (s): [facility] CONSULT TO OSTEOPORORSIS MANAGEMENT Demographics: Initial Screenin11/27/2023 Date of Fracture: 11/25/2023 Christine Mays seen for consult for osteoporosis education. Education: Nutrition Counseling Vitamin D Supplementation 800-1000 international units/day Calcium Supplementation 1200mg/ day (in divided doses) (These recommendations can be subject to change per primary care provider discretion) Physical Activity Counseling Weight bearing and muscle strengthening Fall Prevention Lifestyle Counseling Smoking cessation Limiting excessive alcohol intake (no more than an average of 2 drinks per day) Bone Mineral Density Testing National Osteoporosis Foundation recommends for all over age 50 who have sustained a fragility fracture ([employer] The Bone, [employer], December 2020) Discuss with primary care provider Communication Primary care provider letter generated [facility] ponUp Inbasket: yes Plan: Recommend follow-up with primary care provider for additional bone health evaluation and management. Patient confirms Dr. Ricketts as current primary care provider. Christine was agreeable to the plan and there were no learning barriers encountered. Folder was given with handouts, information added to discharge AVS. [facility] 11-26-2023 Note Formatting of this n ote might be different from the original. Problem: Actual or potential alteration in health Goal: Knowledge of Enviroment Outcome: Partially Met Oriented to room, bed operation, call light and unit Problem: Pain Goal: Control of acute pain to acceptable level Outcome: Partially Met Robbins /Toradol as needed for c/o pain. Ice to lt arm as needed for pain relief and to decrease edema Pain has been managed with current pain regiment Problem: Falls, Risk of Goal: Absence of falls Outcome: Partially Met Fall precautions cont. Bed in lowest positiond Bed exit alarm in use. Frequent rounding by staff to assess needs Problem: Venous Thromboembolism, Risk of Goal: Absence of venous thromboembolism Outcome: Partially Met Meds as ordered [facility] 11-26-2023 Note [facility] POST-OP CHECK Ms. Christine Mays is a 78 y.o. female who is - POD#0 OPEN REDUCTION INTERNAL FIXATION HUMERUS on 11/26/[address] Das Procedure without complications. I have evaluated the patient in the immediate post op period. Patient alert and sitting in bed eating dinner. Reports pain is controlled currently. Denies CP, SOB, or emesis. Left arm neurovascularly intact. Assessment and Plan: Closed head injury - hit head, no LOC. CT H negative, MRI C spine shows degenerative disc disease without evidence of spinal cord injury Left humerus fx - s/p ORIF with Dr. Das, pain control, vitamin D level 36 Left arm paresthesias - s/p fall likely related to humerus fx, ?brachial plexus injury. MRI C-spine without cord injury. Hypokalemia - present on admission, resolved. Alkalosis - present on admission, resolved. Temp: [97.2 degrees F (36.2 degrees C)-98 degrees F (36.7 degrees C)] 97.2 degrees F (36.2 degrees C) Heart Rate: [50-79] 61 Resp: [14-18] 18 BP: (76-189)/(36-96) 130/62 GENERAL: Appears age appropriate. No acute distress. NEUROLOGICAL: Alert and oriented X 3. Follows commands with extremities. Strength 2/5 in LUE. GCS = 15 Neck: Supple, trachea midline, no midline tenderness, step offs, bony crepitus. Collar removed CARDIOVASCULAR: Regular rate and rhythm. No peripheral edema noted. 2+ pulses radial/DP/PT bilaterally. RESPIRATORY: Lungs, clear to auscultation bilaterally. No rhonchi, wheezes or crackles. Respiratory effort unlabored without use of accessory muscles. ABDOMINAL: Rounded, soft, nontender, nondistended, normal bowel sounds. No guarding or peritoneal signs. GENITOURINARY: Normal genitalia for age without lesion or trauma. Purwick present with yellow urine. MUSCULOSKELETAL: Left arm with soft tissue swelling and decreased strength. Dressing CDI. Arm in sling. SKIN: Skin warm and dry. No rashes or lesions. Intake/Output Summary (Last 24 hours) at 11/26/2023 1723 Last data filed at 11/26/2023 1600 Gross per 24 hour Intake 200 ml Output 600 ml Net -400 ml AUTHENTICATED BY STACI WELLER, ON 11/26/2023 18:01:15 [facility] 11-26-2023 Note Formatting of this n ote might be different from the original. Problem: Actual or potential alteration in health Goal: Absence of healthcare acquired conditions Outcome: Partially Met Goal: Knowledge of Interdisciplinary Plan of Care Outcome: Partially Met Goal: Knowledge of Enviroment Outcome: Partially Met Note: Pt oriented to room 4102. Call light in reach. Problem: Falls, Risk of Goal: Absence of falls Outcome: Partially Met Note: Fall precautions in place. Nonskid socks on. Call light in reach. Bed in lowest position. Goal: Absence of physical injury Outcome: Partially Met Problem: Pressure Injury, Risk of Goal: Absence of pressure injury Outcome: Partially Met Note: Pt educated on repositioning every 2 hours. Problem: Venous Thromboembolism, Risk of Goal: Absence of venous thromboembolism Outcome: Partially Met Plan of care reviewed [facility] 11-26-2023 Note Formatting of this n ote is different from the original. [facility] DAILY PROGRESS NOTE Trauma: Admitted with these risk variables:Electrolyte Disturbance: Hypokalemia and Alkalosis. Please see assessment and plan for further details. INJURIES: Left displaced surgical neck of the proximal humerus Ecchymosis of left scalp Left arm paresthesias ASSESSMENT & PLAN/ACTIVE MEDICAL PROBLEMS: Closed head injury - hit head, no LOC. CT H negative, MRI C spine shows degenerative disc disease without evidence of spinal cord injury Left humerus fx - surgery today with Dr. aDs, pain control, vitamin D level pending Left arm paresthesias - s/p fall likely related to humerus fx, ?brachial plexus injury. MRI C-spine without cord injury. Hypokalemia - present on admission, resolved. Alkalosis - present on admission, resolved. SURGERIES/PROCEDURES: Date Operation/Procedure Provider Name INCIDENTAL FINDINGS: Cardiomegaly Hiatal hernia Right parietal convexity meningioma RESOLVED PROBLEMS: Hypokalemia Alkalosis Lateral neck strain DISPOSITION - TBD ========= CHIEF COMPLAINT/ HPI / PFSHx / EVENTS OVER LAST 24HRS: Patient with no acute changes reported during the night. She reports that her arm paraesthesias have improved and that "it just feels heavy." MRI reviewed and c-collar removed at this time. REVIEW OF SYSTEMS: Other than the above items the remainder of the complete ROS is otherwise unchanged from admission. PHYSICAL EXAM: Temp: [97.4 F (36.3 C)-98.1 F (36.7 C)] 97.8 F (36.6 C) Heart Rate: [50-93] 59 Resp: [11-24] 16 BP: (76-209)/(36-192) 125/61 GENERAL: Appears age appropriate. No acute distress. NEUROLOGICAL: Alert and oriented X 3. Follows commands with extremities. Strength 2/5 in LUE. GCS = 15 Neck: Supple, trachea midline, no midline tenderness, step offs, bony crepitus. Collar removed CARDIOVASCULAR: Regular rate and rhythm. No peripheral edema noted. 2+ pulses radial/DP/PT bilaterally. RESPIRATORY: Lungs, clear to auscultation bilaterally. No rhonchi, wheezes or crackles. Respiratory effort unlabored without use of accessory muscles. ABDOMINAL: Rounded, soft, nontender, nondistended, normal bowel sounds. No guarding or peritoneal signs. GENITOURINARY: Normal genitalia for age without lesion or trauma. Purwick present with yellow urine. MUSCULOSKELETAL: Left arm with soft tissue swelling and decreased strength. SKIN: Skin warm and dry. No rashes or lesions. Intake/Output Summary (Last 24 hours) at 11/26/2023 1316 Last data filed at 11/26/2023 1259 Gross per 24 hour Intake 200 ml Output 100 ml Net 100 ml IMAGING [briefly note any results pertinent to today's evaluation]: Reviewed LABS Lab Results Component Value Date WBC 6.89 11/26/2023 HGB 10.7 (L) 11/26/2023 HCT 32.1 (L) 11/26/2023 MCV 96.1 11/26/2023 PLT 218 11/26/2023 RBC 3.34 (L) 11/26/2023 Lab Results Component Value Date GLUCOSE 127 (H) 11/26/2023 CALCIUM 8.7 11/26/2023 NA 134 (L) 11/26/2023 K 3.9 11/26/2023 CL 99 11/26/2023 BUN 19 11/26/2023 CREATININE 0.64 11/26/2023 No results found for: "ALT", "AST", "GGT", "ALKPHOS", "BILITOT" DAILY CHECKLIST: *Need for Restraints: No *Need for Urinary Catheter: No *Need for Central Access Devices: No *Stress Ulcer Prophylaxis: Protonix and diet *VTE Prophylaxis (Body mass index is 27.73 kg/m ., Estimated Creatinine Clearance: 50.4 mL/min (by C-G formula based on SCr of 0.64 mg/dL).): holding for OR *Home Medications Reconciled: Partial *Code Status: Full Associated attestation - Nayely Mae MD - 11/26/2023 3:42 PM EDT TRAUMA/ ACUTE CARE SURGERY ATTENDING NOTE Please link this note as an addendum to the LAVELLE note with the same day of service. The patient was seen and examined by me, the attending trauma surgeon, on multidisciplinary rounds on the date of service listed above. I have reviewed the LAVELLE note, labs, studies, and lead sales consultant notes. I have reviewed and agree with the documented history, exam, and plan of care, with the following additions and corrections: Today: Christine Mays is a 78 y.o. female presenting with L humerus fx following fall. Pt with DINORA paresthesia, suspect brach plexus injury, MRI c spine neg. Will monitor LUE paresthesia. C collar cleared. Ortho eval pending. All of the above listed fractures are fractures due to combination of osteopenia and trauma that alone would not have caused them. Will consult osteoporosis management and check Vit D. Pt with ABLA 2/2 trauma; no active bleed, will monitor; daily CBC. Home meds, therapies post op. The aforementioned issues are severe. These issues do continue to pose a threat to life or bodily function. Pertinent labs and imaging personally reviewed with evidence of L humerus fx, osteopenia, ABLA. HypoK POA resolved with replacement. Acidosis POA resolved. A comprehensive review of systems was performed with the pt and all systems reviewed were negative except those listed in the HPI. Admitted with these risk variables:Electrolyte Disturbance: Hypokalemia and Alkalosis, anemia. Please see assessment and plan for further details. Dayday Mae MD, FACS, DABS, DABA Trauma, Acute Care Surgery, Surgical Critical Care, and Neurocritical Care [facility] 11-26-2023 Note Formatting of this n ote is different from the original. Brief Post Operative Note Patient Name: Christine Mays : 1945 (78 y.o.) Date of Service: 11/25/2023 - 11/26/2023 CSN: [id number] Procedure(s): ORIF left proximal humerous Pre-Operative Diagnoses: * Left proximal humerus fracture Post-Operative Diagnoses: * Same as Pre-Op Diagnosis Surgeon(s) and Role: * Avery Das MD - Primary Anesthesiologist: Aissatou Wilson MD [employer]SMITH: Minnie Burch CRNA Drilling Engineering Manager: Placido Engle; Romel Hoffmann RN; Cathryn Barba RN; Kyler Brock RN; Jeanette Persaud RN Security Sales Manager: Castro Gould, TECHNOLOGIST Scrub Person: Lena Shea RN WEB GRAPHIC DESIGNER: Jeri Brannon RN Operative findings: see op note Intra and immediate post-operative complications: none Type of anesthesia used: General Estimated blood loss: 100 mL Estimated urine output: Refer to surgical log Specimen(s): * No specimens in log * Implant(s): Implant Name Type Inv. Item Serial No. Contract Modeler Lot No. LRB No. Used Action PLATE 3.5 X 90MM 3HL LCP PROX HUMERUS STD - [id number] PLATE 3.5 X 90MM 3HL LCP PROX HUMERUS STD SYNTHES LT Left 1 Implanted SCREW 3.5X26MM CORTEX SELF-TAP - [id number] SCREW 3.5X26MM CORTEX SELF-TAP SYNTHES LT Left 2 Implanted SCREW 3.5 X 50MM LOCKING SELF-TAP STRDRV REC - [id number] SCREW 3.5 X 50MM LOCKING SELF-TAP STRDRV REC SYNTHES LT Left 3 Implanted SCREW 3.5 X 30MM LOCKING SELF-TAP STRDRV REC - [id number] SCREW 3.5 X 30MM LOCKING SELF-TAP STRDRV REC SYNTHES LT Left 1 Implanted SCREW 3.5 X 45MM LOCKING SELF-TAP STRDRV REC - [id number] SCREW 3.5 X 45MM LOCKING SELF-TAP STRDRV REC SYNTHES LT Left 4 Implanted SCREW 3.5 X 24MM CORTEX SELF-TAP - [id number] SCREW 3.5 X 24MM CORTEX SELF-TAP SYNTHES LT Left 1 Implanted Drain(s): External Urinary Catheter (Active) Wound(s): Wound 11/26/23 Surgical Wound Upper Arm Anterior;Left;Proximal (Active) Wound Closure Jef;Surgical Adhesive 11/25/23 0001 Avery Das MD 11/26/2023 1:07 PM [facility] 11-26-2023 Note Formatting of this n ote might be different from the original. ATTENDING PHYSICIAN NAYELY MAE MD PRIMARY CARE PHYSICIAN EMMANUEL RICKETTS MD ADMITTING PHYSICIAN NAYELY MAE MD CONSULTING PHYSICIAN NAYELY MAE MD PREOPERATIVE DIAGNOSIS Left surgical neck fracture. POSTOPERATIVE DIAGNOSIS Left surgical neck fracture. PROCEDURE Open reduction and internal fixation of left proximal humerus fracture. ANESTHESIA General anesthetic. COMPLICATIONS No intraoperative complications. SPECIMENS None. ESTIMATED BLOOD LOSS 100 cc. APPROACH Deltopectoral. HISTORY Christine is an 78-year-old patient with significant history of left shoulder proximal humerus fracture. 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 The patient at this point in time was explained all of the risks and complications of surgery, including, but not limited to, the risk of infection, bleeding, neurologic or vascular injury, the possibility of deep venous thrombosis, pulmonary embolism, myocardial infarction, stroke, or even with surgery. Explained the possibilities of continued pain, stiffness, loss of range of motion, as well as the need for future surgery. Given all of the options of anesthetic per the anesthesia team and at this point in time elected for general anesthetic. We talked about the possibility of nonunion, malunion, hardware failure, and the need for future surgery for any or all of the above complications. The patient understands this and at this point in time consents for surgical intervention. PROCEDURE IN DETAIL At this point in time, patient was met in the preoperative holding area where the left shoulder was confirmed to be the appropriate site and marked by myself. Patient was taken to the operative suite, given preoperative Kefzol per protocol as well as a general anesthetic. She was then placed in the beach chair position. Left shoulder was then sterilely prepped and draped using ChloraPrep solution. After sterilization of the left shoulder, we did our final time-out to confirm that the left shoulder was in fact the appropriate site that had been marked by myself. We then went ahead and proceeded forward with doing our deltopectoral approach. Upon entering the deep surface of the conjoined tendon as well as the deep deltoid, our retractors were placed. We then identified the biceps tendon in the bicipital groove. This allowed us to use anatomic bony landmarks to reposition the proximal humeral fracture. We then used a proximal humeral locking plate to secure the proximal humeral fracture. Once I was happy with the alignment and the plate fixation, fluoroscopy images were saved. Wound was copiously irrigated. Vancomycin powder was sprinkled over the contact surface areas of the plate. Wound was then closed with 0 Vicryl, 2 Vicryl and skin jef. Patient placed in sterile dressing, extubated and taken to PACU without intraoperative complication. D 11/26/2023 13:10 [id number]/[id number] T 11/26/2023 14:00 MCB/MODL [facility] 11-26-2023 Consult note Formatting of th is note might be different from the original. ATTENDING PHYSICIAN NAYELY MAE MD PRIMARY CARE PHYSICIAN EMMANUEL RICKETTS MD ADMITTING PHYSICIAN NAYELY MAE MD CONSULTING PHYSICIAN NAYELY MAE MD REASON FOR CONSULTATION Left proximal humerus fracture. HISTORY Christine is an 78-year-old patient with a mechanical fall yesterday sustaining a proximal humerus fracture, admitted to the trauma service. 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 She does not use a cane, does not use a walker. PAST MEDICAL HISTORY Anxiety, hypothyroidism, migraine headaches, spinal stenosis. SURGERIES She had breast reduction surgery, cholecystectomy, foot surgery, hysterectomy, pilonidal cyst, left hand trigger release. SOCIAL HISTORY She is a former smoker. Does not smoke currently. Drinks on a social basis. FAMILY HISTORY Heart disease. ALLERGIES Nickel and codeine. MEDICATIONS Include Tylenol, Tenormin, Neurontin, Synthroid, Ativan, Mobic, Zanaflex, Ultram, Desyrel, Maxzide. REVIEW OF SYSTEMS Left shoulder pain. X-ray and CAT scan of the left shoulder were reviewed. The x-ray and CAT scan show a surgical neck fracture with no evidence of humeral head involvement and unfortunately there appears to be 75% anterior displacement of the humeral shaft in comparison to the head anteriorly. PHYSICAL EXAM General: The patient is awake, alert, and oriented x3. Musculoskeletal: Right upper extremity atraumatic. Lower extremities atraumatic. Left upper extremity neurologically intact. 2+ pulses. Full range of motion throughout the left hand, wrist, and elbow. Ecchymosis and edema at the shoulder. IMPRESSION Left proximal humerus fracture. PLAN As an 78-year-old caregiver of her who is basically wheelchair-bound, we talked about surgical versus nonsurgical intervention; however, with the severity of the displacement of the humeral head and neck, we are going to proceed forward with open reduction and internal fixation. All risks and complications were discussed. D 11/26/2023 10:51 [email or web address]/[id number] T 11/26/2023 11:36 MCB/MODL [facility] 11-26-2023 Attending History and physical note INTERVAL HISTORY AND PHYSICAL Patient Name: Christine Mays Admit Date: [id number] MR #: [id number] : 1945 The H&P has been reviewed and the patient has been examined. I concur with the findings of the H&P. There are no significant changes. It is appropriate to proceed with the planned procedure. Avery Das MD 11/26/2023 10:49 AM Source Note - Kellen Lenora Kat, [facility] - 11/25/2023 4:57 PM EDT [facility] TRAUMA EVALUATION / HISTORY AND PHYSICAL ====Trauma: Admitted with these risk variables:Electrolyte Disturbance: Hypokalemia and Alkalosis. Please see assessment and plan for further details. INJURIES: Left displaced surgical neck of the proximal humerus Ecchymosis of left scalp Lateral neck strain, Left arm paresthesias ASSESSMENT & PLAN/ACTIVE MEDICAL PROBLEMS: Closed head injury - hit head, no LOC. CT H/C spine (p) Left humerus fx - discussed with ortho. Sling. Will admit for pain control. Left arm paresthesias - s/p fall likely related to humerus fx, ?brachial plexus injury. Given neck pain - will obtain MRI C spine. MECHANISM OF INJURY: LOC (yes/no?): no Anticoagulant / Anti-platelet Rx? (for what dx?): no Notification Time: 1437 Arrival To Bedside: 1438 Attending Arrival Time: 1440 CHIEF COMPLAINT: Fall HISTORY OF PRESENT ILLNESS / INJURY (HPI): Ms. Mays is a 78-year-old female with a past medical history of anxiety, degenerative disc disease who presented to the [facility] as a level two trauma. She lost her balance falling onto her left side. She did hit her head, no LOC, and felt immediate pain to her left shoulder. Upon arrival she was hypertensive, small ecchymosis to left eyebrow and left shoulder pain with deformity. PAST MEDICAL HISTORY (PMH): Past Medical History: Diagnosis Date Anxiety Chronic back pain DDD (degenerative disc disease), lumbar Disease of thyroid gland Headache, tension-type Spinal stenosis Past Surgical History: Procedure Laterality Date BREAST REDUCTION CHOLECYSTECTOMY FOOT SURGERY Right HYSTERECTOMY PILONIDAL CYST TRIGGER FINGER RELEASE Left Social History Tobacco Use Smoking status: Former Packs/day: .5 Types: Cigarettes Smokeless tobacco: Never Vaping Use Vaping Use: Never used Substance Use Topics Alcohol use: Yes Comment: wine rarely Drug use: No Family History Problem Relation Age of Onset Heart disease Father Heart attack Sister Heart disease Brother Heart disease Brother Last Tetanus: unknown MEDICATIONS: No current facility-administered medications on file prior to encounter. Current Outpatient Medications on File Prior to Encounter Medication Sig Dispense Refill acetaminophen (TYLENOL) 500 MG tablet Take 1 (one) tablet (500 mg total) by mouth every 6 (six) hours as needed . atenoloL (TENORMIN) 25 MG tablet Take 1 (one) tablet (25 mg total) by mouth daily . gabapentin (NEURONTIN) 300 MG capsule Take 1 (one) capsule (300 mg total) by mouth every 12 (twelve) hours . levothyroxine (SYNTHROID, LEVOTHROID) 112 MCG tablet Take 1 (one) tablet (112 mcg total) by mouth once daily . LORazepam (ATIVAN) 0.5 MG tablet Take 1 (one) tablet (0.5 mg total) by mouth as needed . meloxicam (MOBIC) 7.5 MG tablet Take 1 (one) tablet to 2 (two) tablets (7.5-15 mg total) by mouth daily . tiZANidine (ZANAFLEX) 2 MG tablet Take 1 Unspecified by mouth . traMADol (ULTRAM) 50 mg tablet Take 1 (one) tablet (50 mg total) by mouth as needed for pain . traZODone (DESYREL) 50 MG tablet Take 1 (one) tablet (50 mg total) by mouth nightly . triamterene-hydrochlorothiazide (MAXZIDE) 75-50 mg per tablet Takes 1/2 tablet po daily. ALLERGIES: Allergies Allergen Reactions Nickel Hives and Rash Codeine Other (See Comments) REVIEW OF SYSTEMS is normal as below YES [] NO [x] COVID19 Screen: Negative for fever, cough, SOB, exposure. Constitutional Symptoms: Negative for unexplained falls, weight loss Eyes: Negative for eye pain or vision changes Ears, Nose, Mouth, Throat: Negative for rhinorrhea, nasal pain, dysphagia, hoarseness Cardiovascular: Negative for chest pain, orthopnea, edema Respiratory: Negative for cough, shortness of breath Gastrointestinal: Negative for abdominal pain, nausea, vomiting, diarrhea Genitourinary: Negative for dysuria, hematuria Musculoskeletal: +left shoulder pain. Skin/Breast: Negative for rash, itching, lesions Neurological: Negative for paralysis, loss of bowel or bladder control, loss of consciousness. +paresthesia to left arm Psychiatric: Negative for depression, anxiety, or suicidal ideations Endocrine: Negative for heat/cold intolerance, polydipsia, polyphagia, polyuria Hematologic/Lymphatic: Negative for anticoagulant use, antiplatelet use, family hx of clotting or bleeding disorders Allergic/Immunologic: Allergies reviewed, no use of immunosuppressants or active chemotherapy Other than the above items, the remainder of a complete review of systems is otherwise negative. PHYSICAL EXAM: BP (!) 171/93 Pulse 78 Temp 98.1 F (36.7 C) Resp 14 SpO2 93% PRIMARY SURVEY Airway Patent, trachea midline. Phonation is normal. Breathing Symmetric chest rise and fall. Breath sounds present bilaterally. Circulation Pulses 2+ throughout. Disability Moves extremities normally x 4. No lateralizing neurologic signs. Pupils 3 mm equal and reactive bilaterally. Kat Coma Scale EYES (4-spont, 3-to verb stim, 2-to pain, 1-none) 4 VERBAL (5-oriented, 4-confused, 3-inappropriate, 2-incomprehensible, 1-none) 5 MOTOR (6-follows, 5-localizes, 4-withdraws, 3-flexion, 2-extension, 1-none) 6 GCS: 15 SECONDARY SURVEY General Appears age appropriate. HEENT Head normocephalic, PERRL, EOMI, mid face stable, tympanic membranes intact, no subconjunctival hemorrhage, nares patent bilaterally, no epistaxis, mouth clear of foreign bodies. Small ecchymosis to left eyebrow Neck Cervical collar in place, nomidline tenderness to palpation. Left lateral neck pain. no step offs, crepitus, or deformities. Chest/Respiratory Lungs clear bilaterally. Breathing is non-labored. Chest wall without tenderness to palpation, crepitus, deformities, lacerations, or abrasions. Cardiovascular RRR. No peripheral edema. Abdomen Soft, nontender to palpation, non-peritoneal. No lacerations, abrasions or ecchymosis. Pelvis Stable, no crepitance. Non-tender. Rectal Defer. Genitalia normal for age. No lesions noted. No blood at meatus. Back/Spine TLS spine non-tender to palpation. No step-offs, deformities, lacerations or abrasions. Musculoskeletal Left arm soft tissue swelling with deformity. Skin Warm and dry. No lesions of concern. Not jaundiced. Neurologic A&Ox3. Strength, sensation, proprioception normal. No cerebellar signs. Psychiatric Normal mood. Normal affect. Appropriate insight into current situation. FAST Exam: Deferred The primary and secondary surveys as well as adjunct testing were conducted in accordance with ATLS guidelines. The attending trauma surgeon Dr. Mae was present at bedside. IMAGING STUDIES: CXR/PXR obtained and reviewed in real time in the trauma bay. CT scan of the head, neck, chest, abdomen/pelvis and spine recons have been ordered the images were reviewed in real time in the CT department, radiologic interpretation is pending. LABORATORY STUDIES: Results from trauma bay labs were drawn and are pending [facility] 11-26-2023 History and physical note INTERVAL HISTORY AND PHYSICAL Patient Name: Christine Mays Admit Date: [id number] MR #: [id number] : 1945 The H&P has been reviewed and the patient has been examined. I concur with the findings of the H&P. There are no significant changes. It is appropriate to proceed with the planned procedure. Avery Das MD 11/26/2023 10:49 AM Source Note - Kellen Lenorasharda Stephens, TUMBLER TENDER - 11/25/2023 4:57 PM EDT [facility] TRAUMA EVALUATION / HISTORY AND PHYSICAL ====Trauma: Admitted with these risk variables:Electrolyte Disturbance: Hypokalemia and Alkalosis. Please see assessment and plan for further details. INJURIES: Left displaced surgical neck of the proximal humerus Ecchymosis of left scalp Lateral neck strain, Left arm paresthesias ASSESSMENT & PLAN/ACTIVE MEDICAL PROBLEMS: Closed head injury - hit head, no LOC. CT H/C spine (p) Left humerus fx - discussed with ortho. Sling. Will admit for pain control. Left arm paresthesias - s/p fall likely related to humerus fx, ?brachial plexus injury. Given neck pain - will obtain MRI C spine. MECHANISM OF INJURY: LOC (yes/no?): no Anticoagulant / Anti-platelet Rx? (for what dx?): no Notification Time: 1437 Arrival To Bedside: 1438 Attending Arrival Time: 1440 CHIEF COMPLAINT: Fall HISTORY OF PRESENT ILLNESS / INJURY (HPI): Ms. Mays is a 78-year-old female with a past medical history of anxiety, degenerative disc disease who presented to the [facility] ED as a level two trauma. She lost her balance falling onto her left side. She did hit her head, no LOC, and felt immediate pain to her left shoulder. Upon arrival she was hypertensive, small ecchymosis to left eyebrow and left shoulder pain with deformity. PAST MEDICAL HISTORY (PMH): Past Medical History: Diagnosis Date Anxiety Chronic back pain DDD (degenerative disc disease), lumbar Disease of thyroid gland Headache, tension-type Spinal stenosis Past Surgical History: Procedure Laterality Date BREAST REDUCTION CHOLECYSTECTOMY FOOT SURGERY Right HYSTERECTOMY PILONIDAL CYST TRIGGER FINGER RELEASE Left Social History Tobacco Use Smoking status: Former Packs/day: .5 Types: Cigarettes Smokeless tobacco: Never Vaping Use Vaping Use: Never used Substance Use Topics Alcohol use: Yes Comment: wine rarely Drug use: No Family History Problem Relation Age of Onset Heart disease Father Heart attack Sister Heart disease Brother Heart disease Brother Last Tetanus: unknown MEDICATIONS: No current facility-administered medications on file prior to encounter. Current Outpatient Medications on File Prior to Encounter Medication Sig Dispense Refill acetaminophen (TYLENOL) 500 MG tablet Take 1 (one) tablet (500 mg total) by mouth every 6 (six) hours as needed . atenoloL (TENORMIN) 25 MG tablet Take 1 (one) tablet (25 mg total) by mouth daily . gabapentin (NEURONTIN) 300 MG capsule Take 1 (one) capsule (300 mg total) by mouth every 12 (twelve) hours . levothyroxine (SYNTHROID, LEVOTHROID) 112 MCG tablet Take 1 (one) tablet (112 mcg total) by mouth once daily . LORazepam (ATIVAN) 0.5 MG tablet Take 1 (one) tablet (0.5 mg total) by mouth as needed . meloxicam (MOBIC) 7.5 MG tablet Take 1 (one) tablet to 2 (two) tablets (7.5-15 mg total) by mouth daily . tiZANidine (ZANAFLEX) 2 MG tablet Take 1 Unspecified by mouth . traMADol (ULTRAM) 50 mg tablet Take 1 (one) tablet (50 mg total) by mouth as needed for pain . traZODone (DESYREL) 50 MG tablet Take 1 (one) tablet (50 mg total) by mouth nightly . triamterene-hydrochlorothiazide (MAXZIDE) 75-50 mg per tablet Takes 1/2 tablet po daily. ALLERGIES: Allergies Allergen Reactions Nickel Hives and Rash Codeine Other (See Comments) REVIEW OF SYSTEMS is normal as below YES [] NO [x] COVID19 Screen: Negative for fever, cough, SOB, exposure. Constitutional Symptoms: Negative for unexplained falls, weight loss Eyes: Negative for eye pain or vision changes Ears, Nose, Mouth, Throat: Negative for rhinorrhea, nasal pain, dysphagia, hoarseness Cardiovascular: Negative for chest pain, orthopnea, edema Respiratory: Negative for cough, shortness of breath Gastrointestinal: Negative for abdominal pain, nausea, vomiting, diarrhea Genitourinary: Negative for dysuria, hematuria Musculoskeletal: +left shoulder pain. Skin/Breast: Negative for rash, itching, lesions Neurological: Negative for paralysis, loss of bowel or bladder control, loss of consciousness. +paresthesia to left arm Psychiatric: Negative for depression, anxiety, or suicidal ideations Endocrine: Negative for heat/cold intolerance, polydipsia, polyphagia, polyuria Hematologic/Lymphatic: Negative for anticoagulant use, antiplatelet use, family hx of clotting or bleeding disorders Allergic/Immunologic: Allergies reviewed, no use of immunosuppressants or active chemotherapy Other than the above items, the remainder of a complete review of systems is otherwise negative. PHYSICAL EXAM: BP (!) 171/93 Pulse 78 Temp 98.1 F (36.7 C) Resp 14 SpO2 93% PRIMARY SURVEY Airway Patent, trachea midline. Phonation is normal. Breathing Symmetric chest rise and fall. Breath sounds present bilaterally. Circulation Pulses 2+ throughout. Disability Moves extremities normally x 4. No lateralizing neurologic signs. Pupils 3 mm equal and reactive bilaterally. Kat Coma Scale EYES (4-spont, 3-to verb stim, 2-to pain, 1-none) 4 VERBAL (5-oriented, 4-confused, 3-inappropriate, 2-incomprehensible, 1-none) 5 MOTOR (6-follows, 5-localizes, 4-withdraws, 3-flexion, 2-extension, 1-none) 6 GCS: 15 SECONDARY SURVEY General Appears age appropriate. HEENT Head normocephalic, PERRL, EOMI, mid face stable, tympanic membranes intact, no subconjunctival hemorrhage, nares patent bilaterally, no epistaxis, mouth clear of foreign bodies. Small ecchymosis to left eyebrow Neck Cervical collar in place, nomidline tenderness to palpation. Left lateral neck pain. no step offs, crepitus, or deformities. Chest/Respiratory Lungs clear bilaterally. Breathing is non-labored. Chest wall without tenderness to palpation, crepitus, deformities, lacerations, or abrasions. Cardiovascular RRR. No peripheral edema. Abdomen Soft, nontender to palpation, non-peritoneal. No lacerations, abrasions or ecchymosis. Pelvis Stable, no crepitance. Non-tender. Rectal Defer. Genitalia normal for age. No lesions noted. No blood at meatus. Back/Spine TLS spine non-tender to palpation. No step-offs, deformities, lacerations or abrasions. Musculoskeletal Left arm soft tissue swelling with deformity. Skin Warm and dry. No lesions of concern. Not jaundiced. Neurologic A&Ox3. Strength, sensation, proprioception normal. No cerebellar signs. Psychiatric Normal mood. Normal affect. Appropriate insight into current situation. FAST Exam: Deferred The primary and secondary surveys as well as adjunct testing were conducted in accordance with ATLS guidelines. The attending trauma surgeon Dr. Mae was present at bedside. IMAGING STUDIES: CXR/PXR obtained and reviewed in real time in the trauma bay. CT scan of the head, neck, chest, abdomen/pelvis and spine recons have been ordered the images were reviewed in real time in the CT department, radiologic interpretation is pending. LABORATORY STUDIES: Results from trauma bay labs were drawn and are pending [facility] TRAUMA EVALUATION / HISTORY AND PHYSICAL ====Trauma: Admitted with these risk variables:Electrolyte Disturbance: Hypokalemia and Alkalosis. Please see assessment and plan for further details. INJURIES: Left displaced surgical neck of the proximal humerus Ecchymosis of left scalp Lateral neck strain, Left arm paresthesias ASSESSMENT & PLAN/ACTIVE MEDICAL PROBLEMS: Closed head injury - hit head, no LOC. CT H/C spine (p) Left humerus fx - discussed with ortho. Sling. Will admit for pain control. Left arm paresthesias - s/p fall likely related to humerus fx, ?brachial plexus injury. Given neck pain - will obtain MRI C spine. MECHANISM OF INJURY: LOC (yes/no?): no Anticoagulant / Anti-platelet Rx? (for what dx?): no Notification Time: 1437 Arrival To Bedside: 1438 Attending Arrival Time: 1440 CHIEF COMPLAINT: Fall HISTORY OF PRESENT ILLNESS / INJURY (HPI): Ms. Mays is a 78-year-old female with a past medical history of anxiety, degenerative disc disease who presented to the [facility] ED as a level two trauma. She lost her balance falling onto her left side. She did hit her head, no LOC, and felt immediate pain to her left shoulder. Upon arrival she was hypertensive, small ecchymosis to left eyebrow and left shoulder pain with deformity. PAST MEDICAL HISTORY (PMH): Past Medical History: Diagnosis Date Anxiety Chronic back pain DDD (degenerative disc disease), lumbar Disease of thyroid gland Headache, tension-type Spinal stenosis Past Surgical History: Procedure Laterality Date BREAST REDUCTION CHOLECYSTECTOMY FOOT SURGERY Right HYSTERECTOMY PILONIDAL CYST TRIGGER FINGER RELEASE Left Social History Tobacco Use Smoking status: Former Packs/day: .5 Types: Cigarettes Smokeless tobacco: Never Vaping Use Vaping Use: Never used Substance Use Topics Alcohol use: Yes Comment: wine rarely Drug use: No Family History Problem Relation Age of Onset Heart disease Father Heart attack Sister Heart disease Brother Heart disease Brother Last Tetanus: unknown MEDICATIONS: No current facility-administered medications on file prior to encounter. Current Outpatient Medications on File Prior to Encounter Medication Sig Dispense Refill acetaminophen (TYLENOL) 500 MG tablet Take 1 (one) tablet (500 mg total) by mouth every 6 (six) hours as needed . atenoloL (TENORMIN) 25 MG tablet Take 1 (one) tablet (25 mg total) by mouth daily . gabapentin (NEURONTIN) 300 MG capsule Take 1 (one) capsule (300 mg total) by mouth every 12 (twelve) hours . levothyroxine (SYNTHROID, LEVOTHROID) 112 MCG tablet Take 1 (one) tablet (112 mcg total) by mouth once daily . LORazepam (ATIVAN) 0.5 MG tablet Take 1 (one) tablet (0.5 mg total) by mouth as needed . meloxicam (MOBIC) 7.5 MG tablet Take 1 (one) tablet to 2 (two) tablets (7.5-15 mg total) by mouth daily . tiZANidine (ZANAFLEX) 2 MG tablet Take 1 Unspecified by mouth . traMADol (ULTRAM) 50 mg tablet Take 1 (one) tablet (50 mg total) by mouth as needed for pain . traZODone (DESYREL) 50 MG tablet Take 1 (one) tablet (50 mg total) by mouth nightly . triamterene-hydrochlorothiazide (MAXZIDE) 75-50 mg per tablet Takes 1/2 tablet po daily. ALLERGIES: Allergies Allergen Reactions Nickel Hives and Rash Codeine Other (See Comments) REVIEW OF SYSTEMS is normal as below YES [] NO [x] COVID19 Screen: Negative for fever, cough, SOB, exposure. Constitutional Symptoms: Negative for unexplained falls, weight loss Eyes: Negative for eye pain or vision changes Ears, Nose, Mouth, Throat: Negative for rhinorrhea, nasal pain, dysphagia, hoarseness Cardiovascular: Negative for chest pain, orthopnea, edema Respiratory: Negative for cough, shortness of breath Gastrointestinal: Negative for abdominal pain, nausea, vomiting, diarrhea Genitourinary: Negative for dysuria, hematuria Musculoskeletal: +left shoulder pain. Skin/Breast: Negative for rash, itching, lesions Neurological: Negative for paralysis, loss of bowel or bladder control, loss of consciousness. +paresthesia to left arm Psychiatric: Negative for depression, anxiety, or suicidal ideations Endocrine: Negative for heat/cold intolerance, polydipsia, polyphagia, polyuria Hematologic/Lymphatic: Negative for anticoagulant use, antiplatelet use, family hx of clotting or bleeding disorders Allergic/Immunologic: Allergies reviewed, no use of immunosuppressants or active chemotherapy Other than the above items, the remainder of a complete review of systems is otherwise negative. PHYSICAL EXAM: BP (!) 171/93 Pulse 78 Temp 98.1 F (36.7 C) Resp 14 SpO2 93% PRIMARY SURVEY Airway Patent, trachea midline. Phonation is normal. Breathing Symmetric chest rise and fall. Breath sounds present bilaterally. Circulation Pulses 2+ throughout. Disability Moves extremities normally x 4. No lateralizing neurologic signs. Pupils 3 mm equal and reactive bilaterally. Kat Coma Scale EYES (4-spont, 3-to verb stim, 2-to pain, 1-none) 4 VERBAL (5-oriented, 4-confused, 3-inappropriate, 2-incomprehensible, 1-none) 5 MOTOR (6-follows, 5-localizes, 4-withdraws, 3-flexion, 2-extension, 1-none) 6 GCS: 15 SECONDARY SURVEY General Appears age appropriate. HEENT Head normocephalic, PERRL, EOMI, mid face stable, tympanic membranes intact, no subconjunctival hemorrhage, nares patent bilaterally, no epistaxis, mouth clear of foreign bodies. Small ecchymosis to left eyebrow Neck Cervical collar in place, nomidline tenderness to palpation. Left lateral neck pain. no step offs, crepitus, or deformities. Chest/Respiratory Lungs clear bilaterally. Breathing is non-labored. Chest wall without tenderness to palpation, crepitus, deformities, lacerations, or abrasions. Cardiovascular RRR. No peripheral edema. Abdomen Soft, nontender to palpation, non-peritoneal. No lacerations, abrasions or ecchymosis. Pelvis Stable, no crepitance. Non-tender. Rectal Defer. Genitalia normal for age. No lesions noted. No blood at meatus. Back/Spine TLS spine non-tender to palpation. No step-offs, deformities, lacerations or abrasions. Musculoskeletal Left arm soft tissue swelling with deformity. Skin Warm and dry. No lesions of concern. Not jaundiced. Neurologic A&Ox3. Strength, sensation, proprioception normal. No cerebellar signs. Psychiatric Normal mood. Normal affect. Appropriate insight into current situation. FAST Exam: Deferred The primary and secondary surveys as well as adjunct testing were conducted in accordance with ATLS guidelines. The attending trauma surgeon Dr. Mae was present at bedside. IMAGING STUDIES: CXR/PXR obtained and reviewed in real time in the trauma bay. CT scan of the head, neck, chest, abdomen/pelvis and spine recons have been ordered the images were reviewed in real time in the CT department, radiologic interpretation is pending. LABORATORY STUDIES: Results from trauma bay labs were drawn and are pending Associated attestation - Nayely Mae MD - 11/25/2023 5:50 PM EDT TRAUMA, CRITICAL CARE, AND ACUTE CARE SURGERY STAFF PHYSICIAN NOTE OF PERSONAL INVOLVEMENT IN CARE: Please link this note as an addendum to the [facility] note with the same day of service. The patient was seen and examined by me, the attending trauma surgeon, on multidisciplinary rounds on the date of service listed above. I have reviewed the [facility] note, labs, studies, and lead sales consultant notes. I have reviewed and agree with the documented history, exam, and plan of care, with the following additions and corrections: Christine Mays is a 78 y.o. female presenting as Category 2 trauma following mechanical fall from standing, negative loss of consciousness. On arrival GCS is 15, she is RRR with SBP in 200s. Patient has new onset of paresthesia of the left upper extremity with a deformity of the left shoulder and tenderness to palpation in this region. Patient also had abrasion of the left elbow and left side of her head. Patient also endorses some C-spine tenderness to palpation and chronic L spine TTP, L wrist TTP. Imaging in the trauma bay obtained with left humerus fracture. Obtained labs and imaging personally reviewed with evidence of L humerus fx, osteopenia, hypoK. Our plan for this patient will be admit to trauma. Ortho eval. All of the above listed fractures are fractures due to combination of osteopenia and trauma that alone would not have caused them. Will consult osteoporosis management and check Vit D. Replace k. Pt evaluated at bedside at 1441 on 11/25/23. Admitted with these risk variables:Electrolyte Disturbance: Hypokalemia and Alkalosis. Please see assessment and plan for further details. Dayday Mae MD, FACS, DABS, DABA Trauma, Acute Care Surgery, Surgical Critical Care, and Neurocritical Care documented in this encounter [facility] 11-26-2023 Note Formatting of this n ote might be different from the original. ADMISSION POC [facility] 11-26-2023 Note Formatting of this n ote might be different from the original. Pt c/o Lt arm pain, rates LT arm pain at 8-9. Ice pack to LT arm. Pt requesting pain medication; phoned SShawn Zee, [facility], notified of c/o pain. LAVELLE will review chart [facility] 11-26-2023 Note Formatting of this n ote might be different from the original. BP 137/60 HR 70 after fluid bolus [facility] 11-26-2023 Note Formatting of this n ote might be different from the original. Pt resting in bed, BP 76/35 and BP 80/40 HR 50 per steven BP Pt denies any dizziness at this time.. Notified SShawn Zee Trauma [facility]ELLE of BP reading with order for fluid bolus. Rapid response Nurse Jarek In room, notified of BP [facility] 11-25-2023 Emergency department Note Attempted to call report to [id number] nurse. Nurse unable to take report because they are taking report upstairs. [facility] 11-25-2023 Emergency department Note Attempted to call report to [id number] nurse. Nurse unable to take report because they are taking report upstairs. Hourly rounding assessment completed on the patient. [] Patient updated on plan of care [x] All comfort needs addressed [] Patient updated on duration of visit Pt requesting update on plan of care, primary RN made aware. All questions answered, patient denies further needs. Call light within reach. Hourly rounding assessment completed on the patient. [x] Patient updated on plan of care [x] All comfort needs addressed [x] Patient updated on duration of visit All questions answered, patient denies further needs. Call light within reach. Hourly rounding assessment completed on the patient. [] Patient updated on plan of care [x] All comfort needs addressed [] Patient updated on duration of visit New ice pack provided to patient for shoulder pain. All questions answered, patient denies further needs. Call light within reach. Hourly rounding assessment completed on the patient. [] Patient updated on plan of care [x] All comfort needs addressed [] Patient updated on duration of visit All questions answered, icepack given per request, patient denies further needs. Call light within reach. Pt Back from CT Pt to ct [facility] EMERGENCY DEPARTMENT ATTENDING NOTE: NAME: Christine Mays CSN: [id number] 78 y.o. PCP: Emmanuel Ricketts MD History: Chief Complaint: Fall HPI: The history was obtained from the patient and EMS. Christine is a 78 y.o. female who presents with a chief complaint of Fall. The patient is an 78-year-old female with past medical history of hypertension, hyperlipidemia, chronic low back pain, hypothyroidism, presented for mechanical fall. Patient states that she was standing on a walking ramp when she lost her balance falling onto her left side injuring her left shoulder and hitting her head. Patient arrived via EMS as evaluated by myself and trauma team. Patient was awake, alert, oriented, bilateral breath sounds, airway intact, GCS 15 with appropriate perfusion of the extremities. PMHx: Past Medical History: Diagnosis Date Anxiety Chronic back pain DDD (degenerative disc disease), lumbar Disease of thyroid gland Headache, tension-type Spinal stenosis PMSx: Past Surgical History: Procedure Laterality Date BREAST REDUCTION CHOLECYSTECTOMY FOOT SURGERY Right HYSTERECTOMY PILONIDAL CYST TRIGGER FINGER RELEASE Left FAM. Hx: Family History Problem Relation Age of Onset Heart disease Father Heart attack Sister Heart disease Brother Heart disease Brother SOC. Hx: Social History Socioeconomic History Marital status: Tobacco Use Smoking status: Former Packs/day: .5 Types: Cigarettes Smokeless tobacco: Never Vaping Use Vaping Use: Never used Substance and Sexual Activity Alcohol use: Yes Comment: wine rarely Drug use: No MEDs: Previous Medications Medication Sig acetaminophen (TYLENOL ER) 650 MG CR tablet Take 2 (two) tablets (1,300 mg total) by mouth At NOON . atenoloL (TENORMIN) 25 MG tablet Take 1 (one) tablet (25 mg total) by mouth daily . diphenhydrAMINE-acetaminophen (TYLENOL PM) 25-500 mg Tab Take 2 (two) tablets by mouth nightly . levothyroxine (SYNTHROID, LEVOTHROID) 112 MCG tablet Take 1 (one) tablet (112 mcg total) by mouth once daily . meloxicam (MOBIC) 7.5 MG tablet Take 1 (one) tablet to 2 (two) tablets (7.5-15 mg total) by mouth daily . traZODone (DESYREL) 50 MG tablet Take 1 (one) tablet (50 mg total) by mouth nightly . triamterene-hydrochlorothiazide (MAXZIDE) 75-50 mg per tablet Take 1 (one) tablet by mouth daily . gabapentin (NEURONTIN) 300 MG capsule Take 1 (one) capsule (300 mg total) by mouth every 12 (twelve) hours . LORazepam (ATIVAN) 0.5 MG tablet Take 1 (one) tablet (0.5 mg total) by mouth as needed . tiZANidine (ZANAFLEX) 2 MG tablet Take 1 Unspecified by mouth . traMADol (ULTRAM) 50 mg tablet Take 1 (one) tablet (50 mg total) by mouth as needed for pain . ALL: Allergies Allergen Reactions Nickel Hives and Rash Codeine Other (See Comments) ROS: Review of Systems Positives and pertinent negatives as per HPI. All other systems were reviewed and are negative. Physical Exam: Patient Vitals for the past 24 hrs: BP Temp Pulse Resp SpO2 11/25/23 1951 -- -- -- 18 -- 11/25/23 1852 112/67 -- 76 17 96 % 11/25/23 1716 (!) 175/86 -- 80 12 97 % 11/25/23 1630 (!) 171/93 -- 78 14 93 % 11/25/23 1624 -- -- 86 17 97 % 11/25/23 1558 -- -- 81 12 95 % 11/25/23 1534 (!) 206/192 -- 85 12 97 % 11/25/23 1524 -- -- 88 (!) 21 98 % 11/25/23 1519 -- -- 90 (!) 11 92 % 11/25/23 1514 -- -- 87 12 97 % 11/25/23 1509 -- -- 88 17 97 % 11/25/23 1504 -- -- 85 16 97 % 11/25/23 1501 (!) 205/85 -- -- -- -- 11/25/23 1459 -- -- 85 (!) 22 97 % 11/25/23 1454 -- -- 88 17 97 % 11/25/23 1449 -- -- 85 17 97 % 11/25/23 1444 -- -- 93 18 97 % 11/25/23 1440 (!) -- -- -- -- 11/25/23 1440 (!) 98.1 F (36.7 C) 89 18 98 % 11/25/23 1439 -- -- 93 (!) 24 96 % Physical Exam Vitals and nursing note reviewed. Constitutional: Appearance: Normal appearance. She is well-developed. She is not toxic-appearing or diaphoretic. HENT: Head: Normocephalic and atraumatic. Nose: No nasal deformity. Eyes: General: Lids are normal. No scleral icterus. Neck: Comments: C-collar in place Cardiovascular: Rate and Rhythm: Normal rate and regular rhythm. Heart sounds: Normal heart sounds, S1 normal and S2 normal. No murmur heard. Musculoskeletal: General: Deformity present. Right shoulder: Normal. Left shoulder: Normal. Right upper arm: Normal. Left upper arm: Normal. Right elbow: Normal. Left elbow: Normal. Right forearm: Normal. Left forearm: Normal. Cervical back: Tenderness present. No spinous process tenderness or muscular tenderness. Thoracic back: Normal. Lumbar back: Normal. Right hip: Normal. Left hip: Normal. Right upper leg: Normal. Left upper leg: Normal. Right knee: Normal. Left knee: Normal. Right lower leg: Normal. No swelling. No edema. Left lower leg: Normal. No swelling. No edema. Comments: Deformity noted to left upper extremity, discomfort with palpation of left upper extremity, skin tear and abrasion noted on left elbow. Pulmonary: Effort: Pulmonary effort is normal. No accessory muscle usage or respiratory distress. Breath sounds: Normal breath sounds. No decreased breath sounds, wheezing, rhonchi or rales. Abdominal: Tenderness: There is no abdominal tenderness. There is no guarding or rebound. Neurological: Mental Status: She is alert and oriented to person, place, and time. She is not disoriented. Psychiatric: Behavior: Behavior normal. Laboratory & Radiological Imaging (if done): Labs Reviewed POC VENOUS BLOOD GAS PANEL-PULM - RALS - Abnormal; Notable for the following components: Result Value pH, Venous 7.50 (*) pCO2, Allan 37.6 (*) Base Excess, Allan 6.0 (*) HCO3, Allan 29.5 (*) O2 Sat, Allan 80.5 (*) Carboxyhemoglobin 1.8 (*) Potassium 3.4 (*) Glucose 106 (*) All other components within normal limits ALCOHOL, MEDICAL - Normal URINE AEROBIC CULTURE MRSA DNA AMPLIFIED PROBE OBTAIN VENOUS BLOOD GASES AND PERFORM VITAMIN D, TOTAL, 25-OH URINALYSIS TYPE AND SCREEN ABORH VERIFICATION CT Chest Abdomen Pelvis Without Contrast With T/L Recons Final Result 1. There is an acute displaced surgical neck fracture of the proximal humerus on the left. 2. No other acute fractures identified. No rib fractures appreciated. No acute fracture appreciated in the thoracic or lumbar spine. 3. No acute intrathoracic traumatic injury appreciated. There is no pneumothorax or pleural effusion. No mediastinal hematoma. 4. Cardiomegaly. Coronary artery disease. Small hiatal hernia. 5. No acute intraabdominal or pelvic traumatic injury. 6. Cholecystectomy and hysterectomy. DMG/ads Workstation ID: [id number] CT Cervical Spine Without Contrast Final Result 1. No acute intracranial process. 2. 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 3. Remote right cerebellar game moderator infarct. 4. No acute fracture or malalignment of the cervical spine. Workstation ID: [id number] CT Head Or Brain Without Contrast Final Result 1. No acute intracranial process. 2. 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 3. Remote right cerebellar game moderator infarct. 4. No acute fracture or malalignment of the cervical spine. Workstation ID: [id number] XR Shoulder Left 1 View Final Result Acute displaced fracture of the proximal humerus. Workstation ID: [id number] XR Wrist Left 3+ Views (Standard) Final Result No definite acute fractures are identified. Degenerative changes. Workstation ID: [id number] XR Chest 1 View Final Result 1. Fracture of the proximal left humerus, please see the report on the left shoulder. 2. The lungs are clear with slight chronic changes. 3. Mild cardiomegaly. Workstation ID: [id number] XR Pelvis 1 View (Standard) Preliminary Result 1. No acute osseous injury with normal alignment. 2. Osteopenia with bilateral [id number]-right acetabular osteoarthritis. 3. 3.0 cm long metallic density wire projecting over the lower pelvis. This finding may be external to the patient. VKR/pji Workstation ID: [id number] US ED Fast Scan (Results Pending) MR Cervical Spine Without Contrast (Results Pending) CT Shoulder Left Without Contrast (Results Pending) Procedures: Procedures ED Course / Medical Decision Making: I did personally review Christine's past medical history, surgical history, social history, as well as family history (when relevant). In this case, I also oversaw the her drug management by reviewing her medication list, allergy list, as well as the medications that I prescribed during the ED course and/or recommended as an out-patient (including possible OTC medications such as acetaminophen, NSAIDs , etc). 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 Trigger finger, left middle finger 12/26/2015 Syncope 07/23/2016 Heart palpitations 07/23/2016 HTN (hypertension) 07/23/2016 Disease of thyroid gland Chronic back pain Trigger finger, left little finger 11/13/2016 Ganglion of flexor tendon sheath of left thumb 11/13/2016 S/P trigger finger release 11/26/2016 Spondylolisthesis of lumbar region 03/07/2021 Spinal stenosis, lumbar region with neurogenic claudication 03/07/2021 Lumbar radiculopathy 03/07/2021 Neck pain 12/10/2021 Resolved Ambulatory Problems Diagnosis Date Noted No Resolved Ambulatory Problems Past Medical History: Diagnosis Date Anxiety DDD (degenerative disc disease), lumbar Headache, tension-type Spinal stenosis ED MEDICATIONS GIVEN: Medications ondansetron (ZOFRAN-ODT) disintegrating tablet 4 mg (has no administration in time range) Or ondansetron (ZOFRAN) injection 4 mg (has no administration in time range) acetaminophen (TYLENOL) tablet 650 mg (has no administration in time range) oxyCODONE (ROXICODONE) immediate release tablet 2.5 mg (2.5 mg Oral Given 11/25/231950) naloxone (NARCAN) injection 0.1 mg (has no administration in time range) And naloxone (NARCAN) injection 0.4 mg (has no administration in time range) senna-docusate (SENNA-S) 8.6-50 mg per tablet 1 tablet (has no administration in time range) atenoloL (TENORMIN) tablet 25 mg (has no administration in time range) gabapentin (NEURONTIN) capsule 300 mg (300 mg Oral Given 11/25/231810) levothyroxine (SYNTHROID, LEVOTHROID) tablet 112 mcg (has no administration in time range) triamterene-hydrochlorothiazide (MAXZIDE) 75-50 mg per tablet 0.5 tablet (0.5 tablets Oral Not Given 11/25/23 1800) lidocaine patch 1 patch (1 patch Transdermal Patch Applied 11/25/23 175) ondansetron (ZOFRAN) 4 mg/2 mL injection - ADS Override Pull (4 mg Given 11/25/23 1455) HYDROmorphone (PF) (DILAUDID) injection (0.25 mg Intravenous Given 11/25/23 1455) After reviewing the items above, I did look at previous medical documentation, such as recent hospitalizations, office visits, and/or recent consultations with PCP/specialist. SDOH: Another factor that I considered in Christine's care was her Social Determinants of Health (SDOH). During this ED encounter, she did NOT appear to have any significant issues identified. LAB TESTING: Ancillary lab testing: CBC, BMP, liver panel, troponin x 2, NT Pro-BNP, lactic acid, urinalysis, urine culture, blood cultures RADIOLOGY: I did consider radiological studies for Christine's care today: Notable for humeral neck fracture on the left DIFFERENTIAL DIAGNOSES: Mechanical fall, Polytrauma, shoulder fracture, humeral neck fracture, clavicular fracture, as well as other etiologies. ED COURSE: The history was obtained from the patient and EMS. Christine is a 78 y.o. female who presents with a chief complaint of Fall. The patient is an 78-year-old female with past medical history of hypertension, hyperlipidemia, chronic low back pain, hypothyroidism, presented for mechanical fall. Patient was seen evaluated by myself as well as trauma team. She was noted to have left upper extremity mild deformity concerning for fracture. Patient imaging was notable for left humeral neck fracture. Patient labs notable for hypokalemia. Given the displaced surgical neck fracture, patient be admitted to trauma service with orthopedic surgery consultation. . Clinical Impression: 1. Closed nondisplaced fracture of surgical neck of left humerus, unspecified fracture morphology, initial encounter 2. Encounter for post fall examination 3. Hypokalemia Disposition: ED Disposition ED Disposition Hospitalize Condition -- Comment Reason for inpatient over two midnights: see above Obdulio Barragan DO ED Attending Physician [facility] EMERGENCY DEPARTMENT Obdulio Barragan DO 11/25/232011 Pt states she was a mechanical fall from standing. Hit head on ground and has neck pain. C-Collar in place on arrival. Pt also complains of severe left shoulder pain from fall. No LOC and no thinners. Pt log rolled to right side. C-Spine maintained throughout. 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 [] Patient updated on plan of care [x] All comfort needs addressed [] Patient updated on duration of visit Pt requesting update on plan of care, primary RN made aware. All questions answered, patient denies further needs. Call light within reach. [facility] 11-25-2023 Emergency department Note Hourly rounding assessment completed on the patient. [x] Patient updated on plan of care [x] All comfort needs addressed [x] Patient updated on duration of visit All questions answered, patient denies further needs. Call light within reach. [facility] 11-25-2023 Emergency department Note Hourly rounding assessment completed on the patient. [] Patient updated on plan of care [x] All comfort needs addressed [] Patient updated on duration of visit New ice pack provided to patient for shoulder pain. All questions answered, patient denies further needs. Call light within reach. [facility] 11-25-2023 History and physical note [facility] TRAUMA TRAUMA EVALUATION / HISTORY AND PHYSICAL ====Trauma: Admitted with these risk variables:Electrolyte Disturbance: Hypokalemia and Alkalosis. Please see assessment and plan for further details. INJURIES: Left displaced surgical neck of the proximal humerus Ecchymosis of left scalp Lateral neck strain, Left arm paresthesias ASSESSMENT & PLAN/ACTIVE MEDICAL PROBLEMS: Closed head injury - hit head, no LOC. CT H/C spine (p) Left humerus fx - discussed with ortho. Sling. Will admit for pain control. Left arm paresthesias - s/p fall likely related to humerus fx, ?brachial plexus injury. Given neck pain - will obtain MRI C spine. MECHANISM OF INJURY: LOC (yes/no?): no Anticoagulant / Anti-platelet Rx? (for what dx?): no Notification Time: 1437 Arrival To Bedside: 1438 Attending Arrival Time: 1440 CHIEF COMPLAINT: Fall HISTORY OF PRESENT ILLNESS / INJURY (HPI): Ms. Mays is a 78-year-old female with a past medical history of anxiety, degenerative disc disease who presented to the [place] ED as a level two trauma. She lost her balance falling onto her left side. She did hit her head, no LOC, and felt immediate pain to her left shoulder. Upon arrival she was hypertensive, small ecchymosis to left eyebrow and left shoulder pain with deformity. PAST MEDICAL HISTORY (PMH): Past Medical History: Diagnosis Date Anxiety Chronic back pain DDD (degenerative disc disease), lumbar Disease of thyroid gland Headache, tension-type Spinal stenosis Past Surgical History: Procedure Laterality Date BREAST REDUCTION CHOLECYSTECTOMY FOOT SURGERY Right HYSTERECTOMY PILONIDAL CYST TRIGGER FINGER RELEASE Left Social History Tobacco Use Smoking status: Former Packs/day: .5 Types: Cigarettes Smokeless tobacco: Never Vaping Use Vaping Use: Never used Substance Use Topics Alcohol use: Yes Comment: wine rarely Drug use: No Family History Problem Relation Age of Onset Heart disease Father Heart attack Sister Heart disease Brother Heart disease Brother Last Tetanus: unknown MEDICATIONS: No current facility-administered medications on file prior to encounter. Current Outpatient Medications on File Prior to Encounter Medication Sig Dispense Refill acetaminophen (TYLENOL) 500 MG tablet Take 1 (one) tablet (500 mg total) by mouth every 6 (six) hours as needed . atenoloL (TENORMIN) 25 MG tablet Take 1 (one) tablet (25 mg total) by mouth daily . gabapentin (NEURONTIN) 300 MG capsule Take 1 (one) capsule (300 mg total) by mouth every 12 (twelve) hours . levothyroxine (SYNTHROID, LEVOTHROID) 112 MCG tablet Take 1 (one) tablet (112 mcg total) by mouth once daily . LORazepam (ATIVAN) 0.5 MG tablet Take 1 (one) tablet (0.5 mg total) by mouth as needed . meloxicam (MOBIC) 7.5 MG tablet Take 1 (one) tablet to 2 (two) tablets (7.5-15 mg total) by mouth daily . tiZANidine (ZANAFLEX) 2 MG tablet Take 1 Unspecified by mouth . traMADol (ULTRAM) 50 mg tablet Take 1 (one) tablet (50 mg total) by mouth as needed for pain . traZODone (DESYREL) 50 MG tablet Take 1 (one) tablet (50 mg total) by mouth nightly . triamterene-hydrochlorothiazide (MAXZIDE) 75-50 mg per tablet Takes 1/2 tablet po daily. ALLERGIES: Allergies Allergen Reactions Nickel Hives and Rash Codeine Other (See Comments) REVIEW OF SYSTEMS is normal as below YES [] NO [x] COVID19 Screen: Negative for fever, cough, SOB, exposure. Constitutional Symptoms: Negative for unexplained falls, weight loss Eyes: Negative for eye pain or vision changes Ears, Nose, Mouth, Throat: Negative for rhinorrhea, nasal pain, dysphagia, hoarseness Cardiovascular: Negative for chest pain, orthopnea, edema Respiratory: Negative for cough, shortness of breath Gastrointestinal: Negative for abdominal pain, nausea, vomiting, diarrhea Genitourinary: Negative for dysuria, hematuria Musculoskeletal: +left shoulder pain. Skin/Breast: Negative for rash, itching, lesions Neurological: Negative for paralysis, loss of bowel or bladder control, loss of consciousness. +paresthesia to left arm Psychiatric: Negative for depression, anxiety, or suicidal ideations Endocrine: Negative for heat/cold intolerance, polydipsia, polyphagia, polyuria Hematologic/Lymphatic: Negative for anticoagulant use, antiplatelet use, family hx of clotting or bleeding disorders Allergic/Immunologic: Allergies reviewed, no use of immunosuppressants or active chemotherapy Other than the above items, the remainder of a complete review of systems is otherwise negative. PHYSICAL EXAM: BP (!) 171/93 Pulse 78 Temp 98.1 F (36.7 C) Resp 14 SpO2 93% PRIMARY SURVEY Airway Patent, trachea midline. Phonation is normal. Breathing Symmetric chest rise and fall. Breath sounds present bilaterally. Circulation Pulses 2+ throughout. Disability Moves extremities normally x 4. No lateralizing neurologic signs. Pupils 3 mm equal and reactive bilaterally. Kat Coma Scale EYES (4-spont, 3-to verb stim, 2-to pain, 1-none) 4 VERBAL (5-oriented, 4-confused, 3-inappropriate, 2-incomprehensible, 1-none) 5 MOTOR (6-follows, 5-localizes, 4-withdraws, 3-flexion, 2-extension, 1-none) 6 GCS: 15 SECONDARY SURVEY General Appears age appropriate. HEENT Head normocephalic, PERRL, EOMI, mid face stable, tympanic membranes intact, no subconjunctival hemorrhage, nares patent bilaterally, no epistaxis, mouth clear of foreign bodies. Small ecchymosis to left eyebrow Neck Cervical collar in place, nomidline tenderness to palpation. Left lateral neck pain. no step offs, crepitus, or deformities. Chest/Respiratory Lungs clear bilaterally. Breathing is non-labored. Chest wall without tenderness to palpation, crepitus, deformities, lacerations, or abrasions. Cardiovascular RRR. No peripheral edema. Abdomen Soft, nontender to palpation, non-peritoneal. No lacerations, abrasions or ecchymosis. Pelvis Stable, no crepitance. Non-tender. Rectal Defer. Genitalia normal for age. No lesions noted. No blood at meatus. Back/Spine TLS spine non-tender to palpation. No step-offs, deformities, lacerations or abrasions. Musculoskeletal Left arm soft tissue swelling with deformity. Skin Warm and dry. No lesions of concern. Not jaundiced. Neurologic A&Ox3. Strength, sensation, proprioception normal. No cerebellar signs. Psychiatric Normal mood. Normal affect. Appropriate insight into current situation. FAST Exam: Deferred The primary and secondary surveys as well as adjunct testing were conducted in accordance with ATLS guidelines. The attending trauma surgeon Dr. Mae was present at bedside. IMAGING STUDIES: CXR/PXR obtained and reviewed in real time in the trauma bay. CT scan of the head, neck, chest, abdomen/pelvis and spine recons have been ordered the images were reviewed in real time in the CT department, radiologic interpretation is pending. LABORATORY STUDIES: Results from trauma bay labs were drawn and are pending Associated attestation - Nayely Mae MD - 11/25/2023 5:50 PM EDT TRAUMA, CRITICAL CARE, AND ACUTE CARE SURGERY STAFF PHYSICIAN NOTE OF PERSONAL INVOLVEMENT IN CARE: Please link this note as an addendum to the LAVELLE note with the same day of service. The patient was seen and examined by me, the attending trauma surgeon, on multidisciplinary rounds on the date of service listed above. I have reviewed the LAVELLE note, labs, studies, and lead sales consultant notes. I have reviewed and agree with the documented history, exam, and plan of care, with the following additions and corrections: Christine Mays is a 78 y.o. female presenting as Category 2 trauma following mechanical fall from standing, negative loss of consciousness. On arrival GCS is 15, she is RRR with SBP in 200s. Patient has new onset of paresthesia of the left upper extremity with a deformity of the left shoulder and tenderness to palpation in this region. Patient also had abrasion of the left elbow and left side of her head. Patient also endorses some C-spine tenderness to palpation and chronic L spine TTP, L wrist TTP. Imaging in the trauma bay obtained with left humerus fracture. Obtained labs and imaging personally reviewed with evidence of L humerus fx, osteopenia, hypoK. Our plan for this patient will be admit to trauma. Ortho eval. All of the above listed fractures are fractures due to combination of osteopenia and trauma that alone would not have caused them. Will consult osteoporosis management and check Vit D. Replace k. Pt evaluated at bedside at 1441 on 11/25/23. Admitted with these risk variables:Electrolyte Disturbance: Hypokalemia and Alkalosis. Please see assessment and plan for further details. Dayday Mae MD, FACS, DABS, DABA Trauma, Acute Care Surgery, Surgical Critical Care, and Neurocritical Care [facility] 11-25-2023 Emergency department Note Hourly rounding assessment completed on the patient. [] Patient updated on plan of care [x] All comfort needs addressed [] Patient updated on duration of visit All questions answered, icepack given per request, patient denies further needs. Call light within reach. [facility] 11-25-2023 Emergency department Note [facility] [facility] 11-25-2023 Emergency department Note Pt to ct [facility] 11-25-2023 Physician Emergency department Note [facility] EMERGENCY DEPARTMENT ATTENDING NOTE: NAME: Christine Mays CSN: [id number] 78 y.o. PCP: Emmanuel Ricketts MD History: Chief Complaint: Fall HPI: The history was obtained from the patient and EMS. Christine is a 78 y.o. female who presents with a chief complaint of Fall. The patient is an 78-year-old female with past medical history of hypertension, hyperlipidemia, chronic low back pain, hypothyroidism, presented for mechanical fall. Patient states that she was standing on a walking ramp when she lost her balance falling onto her left side injuring her left shoulder and hitting her head. Patient arrived via EMS as evaluated by myself and trauma team. Patient was awake, alert, oriented, bilateral breath sounds, airway intact, GCS 15 with appropriate perfusion of the extremities. PMHx: Past Medical History: Diagnosis Date Anxiety Chronic back pain DDD (degenerative disc disease), lumbar Disease of thyroid gland Headache, tension-type Spinal stenosis PMSx: Past Surgical History: Procedure Laterality Date BREAST REDUCTION CHOLECYSTECTOMY FOOT SURGERY Right HYSTERECTOMY PILONIDAL CYST TRIGGER FINGER RELEASE Left FAM. Hx: Family History Problem Relation Age of Onset Heart disease Father Heart attack Sister Heart disease Brother Heart disease Brother SOC. Hx: Social History Socioeconomic History Marital status: Tobacco Use Smoking status: Former Packs/day: .5 Types: Cigarettes Smokeless tobacco: Never Vaping Use Vaping Use: Never used Substance and Sexual Activity Alcohol use: Yes Comment: wine rarely Drug use: No MEDs: Previous Medications Medication Sig acetaminophen (TYLENOL ER) 650 MG CR tablet Take 2 (two) tablets (1,300 mg total) by mouth At NOON . atenoloL (TENORMIN) 25 MG tablet Take 1 (one) tablet (25 mg total) by mouth daily . diphenhydrAMINE-acetaminophen (TYLENOL PM) 25-500 mg Tab Take 2 (two) tablets by mouth nightly . levothyroxine (SYNTHROID, LEVOTHROID) 112 MCG tablet Take 1 (one) tablet (112 mcg total) by mouth once daily . meloxicam (MOBIC) 7.5 MG tablet Take 1 (one) tablet to 2 (two) tablets (7.5-15 mg total) by mouth daily . traZODone (DESYREL) 50 MG tablet Take 1 (one) tablet (50 mg total) by mouth nightly . triamterene-hydrochlorothiazide (MAXZIDE) 75-50 mg per tablet Take 1 (one) tablet by mouth daily . gabapentin (NEURONTIN) 300 MG capsule Take 1 (one) capsule (300 mg total) by mouth every 12 (twelve) hours . LORazepam (ATIVAN) 0.5 MG tablet Take 1 (one) tablet (0.5 mg total) by mouth as needed . tiZANidine (ZANAFLEX) 2 MG tablet Take 1 Unspecified by mouth . traMADol (ULTRAM) 50 mg tablet Take 1 (one) tablet (50 mg total) by mouth as needed for pain . ALL: Allergies Allergen Reactions Nickel Hives and Rash Codeine Other (See Comments) ROS: Review of Systems Positives and pertinent negatives as per HPI. All other systems were reviewed and are negative. Physical Exam: Patient Vitals for the past 24 hrs: BP Temp Pulse Resp SpO2 11/25/23 1951 -- -- -- 18 -- 11/25/23 1852 112/67 -- 76 17 96 % 11/25/23 1716 (!) 175/86 -- 80 12 97 % 11/25/23 1630 (!) 171/93 -- 78 14 93 % 11/25/23 1624 -- -- 86 17 97 % 11/25/23 1558 -- -- 81 12 95 % 11/25/23 1534 (!) 206/192 -- 85 12 97 % 11/25/23 1524 -- -- 88 (!) 21 98 % 11/25/23 1519 -- -- 90 (!) 11 92 % 11/25/23 1514 -- -- 87 12 97 % 11/25/23 1509 -- -- 88 17 97 % 11/25/23 1504 -- -- 85 16 97 % 11/25/23 1501 (!) 205/85 -- -- -- -- 11/25/23 1459 -- -- 85 (!) 22 97 % 11/25/23 1454 -- -- 88 17 97 % 11/25/23 1449 -- -- 85 17 97 % 11/25/23 1444 -- -- 93 18 97 % 11/25/23 1440 (!) -- -- -- -- 11/25/23 144 (!) 98.1 F (36.7 C) 89 18 98 % 11/25/23 1439 -- -- 93 (!) 24 96 % Physical Exam Vitals and nursing note reviewed. Constitutional: Appearance: Normal appearance. She is well-developed. She is not toxic-appearing or diaphoretic. HENT: Head: Normocephalic and atraumatic. Nose: No nasal deformity. Eyes: General: Lids are normal. No scleral icterus. Neck: Comments: C-collar in place Cardiovascular: Rate and Rhythm: Normal rate and regular rhythm. Heart sounds: Normal heart sounds, S1 normal and S2 normal. No murmur heard. Musculoskeletal: General: Deformity present. Right shoulder: Normal. Left shoulder: Normal. Right upper arm: Normal. Left upper arm: Normal. Right elbow: Normal. Left elbow: Normal. Right forearm: Normal. Left forearm: Normal. Cervical back: Tenderness present. No spinous process tenderness or muscular tenderness. Thoracic back: Normal. Lumbar back: Normal. Right hip: Normal. Left hip: Normal. Right upper leg: Normal. Left upper leg: Normal. Right knee: Normal. Left knee: Normal. Right lower leg: Normal. No swelling. No edema. Left lower leg: Normal. No swelling. No edema. Comments: Deformity noted to left upper extremity, discomfort with palpation of left upper extremity, skin tear and abrasion noted on left elbow. Pulmonary: Effort: Pulmonary effort is normal. No accessory muscle usage or respiratory distress. Breath sounds: Normal breath sounds. No decreased breath sounds, wheezing, rhonchi or rales. Abdominal: Tenderness: There is no abdominal tenderness. There is no guarding or rebound. Neurological: Mental Status: She is alert and oriented to person, place, and time. She is not disoriented. Psychiatric: Behavior: Behavior normal. Laboratory & Radiological Imaging (if done): Labs Reviewed POC VENOUS BLOOD GAS PANEL-PULM - RALS - Abnormal; Notable for the following components: Result Value pH, Venous 7.50 (*) pCO2, Allan 37.6 (*) Base Excess, Allan 6.0 (*) HCO3, Allan 29.5 (*) O2 Sat, Allan 80.5 (*) Carboxyhemoglobin 1.8 (*) Potassium 3.4 (*) Glucose 106 (*) All other components within normal limits ALCOHOL, MEDICAL - Normal URINE AEROBIC CULTURE MRSA DNA AMPLIFIED PROBE OBTAIN VENOUS BLOOD GASES AND PERFORM VITAMIN D, TOTAL, 25-OH URINALYSIS TYPE AND SCREEN ABORH VERIFICATION CT Chest Abdomen Pelvis Without Contrast With T/L Recons Final Result 1. There is an acute displaced surgical neck fracture of the proximal humerus on the left. 2. No other acute fractures identified. No rib fractures appreciated. No acute fracture appreciated in the thoracic or lumbar spine. 3. No acute intrathoracic traumatic injury appreciated. There is no pneumothorax or pleural effusion. No mediastinal hematoma. 4. Cardiomegaly. Coronary artery disease. Small hiatal hernia. 5. No acute intraabdominal or pelvic traumatic injury. 6. Cholecystectomy and hysterectomy. DMG/ads Workstation ID: [id number] CT Cervical Spine Without Contrast Final Result 1. No acute intracranial process. 2. 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 3. Remote right cerebellar game moderator infarct. 4. No acute fracture or malalignment of the cervical spine. Workstation ID: [id number] CT Head Or Brain Without Contrast Final Result 1. No acute intracranial process. 2. 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 3. Remote right cerebellar game moderator infarct. 4. No acute fracture or malalignment of the cervical spine. Workstation ID: [id number] XR Shoulder Left 1 View Final Result Acute displaced fracture of the proximal humerus. Workstation ID: [id number] XR Wrist Left 3+ Views (Standard) Final Result No definite acute fractures are identified. Degenerative changes. Workstation ID: [id number] XR Chest 1 View Final Result 1. Fracture of the proximal left humerus, please see the report on the left shoulder. 2. The lungs are clear with slight chronic changes. 3. Mild cardiomegaly. Workstation ID: [id number] XR Pelvis 1 View (Standard) Preliminary Result 1. No acute osseous injury with normal alignment. 2. Osteopenia with bilateral qaga-[id number]-idsm-right acetabular osteoarthritis. 3. 3.0 cm long metallic density wire projecting over the lower pelvis. This finding may be external to the patient. VKR/pji Workstation ID: [id number] ED Fast Scan (Results Pending) MR Cervical Spine Without Contrast (Results Pending) CT Shoulder Left Without Contrast (Results Pending) Procedures: Procedures ED Course / Medical Decision Making: I did personally review Christine's past medical history, surgical history, social history, as well as family history (when relevant). In this case, I also oversaw the her drug management by reviewing her medication list, allergy list, as well as the medications that I prescribed during the ED course and/or recommended as an out-patient (including possible OTC medications such as acetaminophen, NSAIDs , etc). 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 Trigger finger, left middle finger 12/26/2015 Syncope 07/23/2016 Heart palpitations 07/23/2016 HTN (hypertension) 07/23/2016 Disease of thyroid gland Chronic back pain Trigger finger, left little finger 11/13/2016 Ganglion of flexor tendon sheath of left thumb 11/13/2016 S/P trigger finger release 11/26/2016 Spondylolisthesis of lumbar region 03/07/2021 Spinal stenosis, lumbar region with neurogenic claudication 03/07/2021 Lumbar radiculopathy 03/07/2021 Neck pain 12/10/2021 Resolved Ambulatory Problems Diagnosis Date Noted No Resolved Ambulatory Problems Past Medical History: Diagnosis Date Anxiety DDD (degenerative disc disease), lumbar Headache, tension-type Spinal stenosis ED MEDICATIONS GIVEN: Medications ondansetron (ZOFRAN-ODT) disintegrating tablet 4 mg (has no administration in time range) Or ondansetron (ZOFRAN) injection 4 mg (has no administration in time range) acetaminophen (TYLENOL) tablet 650 mg (has no administration in time range) oxyCODONE (ROXICODONE) immediate release tablet 2.5 mg (2.5 mg Oral Given 11/25/231950) naloxone (NARCAN) injection 0.1 mg (has no administration in time range) And naloxone (NARCAN) injection 0.4 mg (has no administration in time range) senna-docusate (SENNA-S) 8.6-50 mg per tablet 1 tablet (has no administration in time range) atenoloL (TENORMIN) tablet 25 mg (has no administration in time range) gabapentin (NEURONTIN) capsule 300 mg (300 mg Oral Given 11/25/23 181) levothyroxine (SYNTHROID, LEVOTHROID) tablet 112 mcg (has no administration in time range) triamterene-hydrochlorothiazide (MAXZIDE) 75-50 mg per tablet 0.5 tablet (0.5 tablets Oral Not Given 11/25/23 1800) lidocaine patch 1 patch (1 patch Transdermal Patch Applied 11/25/23 1756) ondansetron (ZOFRAN) 4 mg/2 mL injection - ADS Override Pull (4 mg Given 11/25/23 1455) HYDROmorphone (PF) (DILAUDID) injection (0.25 mg Intravenous Given 11/25/23 1455) After reviewing the items above, I did look at previous medical documentation, such as recent hospitalizations, office visits, and/or recent consultations with PCP/specialist. SDOH: Another factor that I considered in Christine's care was her Social Determinants of Health (SDOH). During this ED encounter, she did NOT appear to have any significant issues identified. LAB TESTING: Ancillary lab testing: CBC, BMP, liver panel, troponin x 2, NT Pro-BNP, lactic acid, urinalysis, urine culture, blood cultures RADIOLOGY: I did consider radiological studies for Christine's care today: Notable for humeral neck fracture on the left DIFFERENTIAL DIAGNOSES: Mechanical fall, Polytrauma, shoulder fracture, humeral neck fracture, clavicular fracture, as well as other etiologies. ED COURSE: The history was obtained from the patient and EMS. Christine is a 78 y.o. female who presents with a chief complaint of Fall. The patient is an 78-year-old female with past medical history of hypertension, hyperlipidemia, chronic low back pain, hypothyroidism, presented for mechanical fall. Patient was seen evaluated by myself as well as trauma team. She was noted to have left upper extremity mild deformity concerning for fracture. Patient imaging was notable for left humeral neck fracture. Patient labs notable for hypokalemia. Given the displaced surgical neck fracture, patient be admitted to trauma service with orthopedic surgery consultation. . Clinical Impression: 1. Closed nondisplaced fracture of surgical neck of left humerus, unspecified fracture morphology, initial encounter 2. Encounter for post fall examination 3. Hypokalemia Disposition: ED Disposition ED Disposition Hospitalize Condition -- Comment Reason for inpatient over two midnights: see above Obdulio Barragan DO ED Attending Physician [facility] EMERGENCY DEPARTMENT Obdulio Barragan DO 11/25/232011 [facility] 11-25-2023 Emergency department Triage note Pt states she was a mechanical fall from standing. Hit head on ground and has neck pain. C-Collar in place on arrival. Pt also complains of severe left shoulder pain from fall. No LOC and no thinners. [facility] 11-25-2023 Emergency department Note Pt log rolled to right side. C-Spine maintained throughout. 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 States has been going on for 3 days. She has not done anything to try to make this better. Admits to post attic dyskinesia, denies any trauma. Additionally states that her ankles have been swollen now for probably about the last year to slowly getting worse with time. States she does not take any diuretics and has never worn compression socks. Physical Vascular: DP PT pulses are palpable. CFT is fair +2 pitting edema to the dorsal foot and ankle bilaterally. Calf both are soft and supple. Neuro: Light touch is normal. Musculoskeletal: Muscle strength is 5 out of 5. Can easily wiggle toes. Does have palpation to the plantar fascial origin left foot. Negative calcaneal squeeze test. Ankle subtalar is full and pain-free. No Achilles pain. Pushoff is excellent range of motion is full and pain-free. X-rays: No fractures dislocations or subluxations. Clear and obvious plantar calcaneal enthesophyte. Assessment and plan: Patient is a pleasant 78-year-old female with acute left foot Planter fasciitis and heel spur syndrome with pain. -At this time, did start her on a Medrol Dosepak for anti-inflammatory properties. Additionally the fascial origin does require immobilization therefore did prescribe dispense and fit her with a cam boot. Patient was ambulatory prior to this incident and is expected to regain ambulatory status after complete healing of injury. -Additionally for the ankle swelling, start bilateral compression hose with Tubigrip. On during the day off at nighttime. Follow-up in 1 month to reevaluate. If no better could consider injection. documented in this encounter [facility] 07-25-2023 History of Present illness Narrative Subjective Patient ID: Christine Mays is a 78 y.o. female who presents for Fall. HPI PT reports she passed out 07/19/23 and hurt her left leg from her knee down to her ankle. Reports she got up cause she had a really bad raquel horse and got up really quickly out of bed and also had to go to the bathroom and fell. Has had three syncopal episodes so far. First after a surgery - was found to have DVT. This was thought the cause of syncope. Second time it was when she was taking tizanidine and other medications which she thought made her balance poor. Patient has had frequent falls recently. hx of head injuries. Has intermittent balance issues. Patient has had frequent falls recently. hx of head injuries. Has intermittent balance issues. She would like to get off of Eliquis. Was started after noticing DVT post surgery. Recommended 3-6 months. Patient would like to get off of it now. We discussed about taking it for another month and stopping it. Falls most likely from orthostatic hypotension during these episodes. But given that the episodes are mostly at night and no significant falls/constant dizziness during daytime, recommended to take time when standing from sleeping position at night. Recommended to use walker at night. Also encouraged to get a railing/grab bar in the bathroom. Blood pressure is borderline high today. We discussed about getting a CT scan of the head as well. But patient would like to wait for now and monitor without further evaluation. If worsening then wants to get this done. No concerns for fractures at this time. Review of Systems ROS negative except discussed above in HPI. Vitals: 07/25/23 0801 BP: 140/78 Pulse: 75 SpO2: 96% Objective Physical Exam Musculoskeletal: Comments: Is able to ambulate without support. Tenderness appreciated in the medial side of the left knee. Mild tenderness in the ankle and tibial area. Pedal edema noticed in the left lower extremity. Neurological: General: No focal deficit present. Mental Status: Mental status is at baseline. Cranial Nerves: No cranial nerve deficit. Assessment/Plan Christine was seen today for fall. Diagnoses and all orders for this visit: Fall, initial encounter (Primary) - Basic Metabolic Panel; Future Acute deep vein thrombosis (DVT) of popliteal vein of right lower extremity (CMS/HCC) - apixaban (Eliquis) 5 mg tablet; Take 1 tablet (5 mg) by mouth 2 times a day. Follow up as scheduled. Emmanuel Ricketts MD MPH documented in this encounter [facility] Work Phone: 07-04-2023 History of Present illness Narrative Subjective Patient ID: Christine Mays is a 78 y.o. female who presents for med check (PT is here today for a med check. Did not get blood work but does not remember if she was suppose to. ). HPI Patient is still wearing her back brace. Reports that her neurosurgeon recommended starting PT. She is taking Tizanidine and Trazodone at night. This has increased her fall risk. Reports that she has had a recent fall. Since then she has been trying to be careful about further falls. Anemia: Has hx of anemia. Last CBC check with Hg <10. No recent bleeding episodes noticed by patient. Plan: will reassess now. RLS symptoms at night. Could be related to low iron/ferritin levels. Will check as stated above. Hx of DVT- on Eliquis. No hx of bleeding episodes and no dark tarry stools. Hypothyroidism: taking medication regularly. Reports that she has been gaining weight slowly as she has not been able to be active. She is concerned about this as she lost weight with much effort int he past. She has other life stressors as well at this time. Review of Systems ROS negative except discussed above in HPI. Vitals: 07/04/23 1510 BP: 146/60 Pulse: 78 SpO2: 94% Objective Physical Exam Constitutional: Appearance: Normal appearance. Musculoskeletal: Comments: Back brace intact. Uses rollator to ambulate. Neurological: Mental Status: She is alert. Assessment/Plan Christine was seen today for med check. Diagnoses and all orders for this visit: Iron deficiency anemia, unspecified iron deficiency anemia type (Primary) - Hemoglobin and hematocrit, blood; Future Hypothyroidism, unspecified type Spinal stenosis of lumbar region with neurogenic claudication Fall in home, subsequent encounter Weight gain Follow up in 6 months. Emmanuel Ricketts MD MPH documented in this encounter [facility] Work Phone: 06-19-2023 History of Present illness Narrative Subjective Patient ID: Christine Mays is a 78 y.o. female who presents for pt passed out and landed on the floor (Pt just had back surgery and would like xray to make sure nothing was injured with the fall- pt is having back pain ). HPI 10 days ago had episode of syncope and fell, fell on hardwood floor, hit the back of her head on the floor, no bleeding. She was unconscious for about 30 minutes. Hx of pulmonary embolism earlier this year, on anticoagulation currently. Denies any symptoms currently. Her BP is elevated today, but she endorses she had frustrating meeting with 's caretakers right before her appt. Endorses usually WNL at home. She does have a small knot to the back of her head. She is concerned she damaged the surgically repaired lumbar and would like Xray. Lumbar surgery about 2-3 months ago. Review of Systems Constitutional: Negative. Respiratory: Negative. Cardiovascular: Negative. Gastrointestinal: Negative. Objective BP (!) 160/93 Pulse 64 Ht 1.498 m (4' 10.98") Wt 64.9 kg (143 lb) BMI 28.90 kg/m Physical Exam Constitutional: General: She is not in acute distress. Appearance: Normal appearance. She is not ill-appearing. HENT: Head: Normocephalic and atraumatic. Eyes: Extraocular Movements: Extraocular movements intact. Conjunctiva/sclera: Conjunctivae normal. Cardiovascular: Rate and Rhythm: Normal rate. Pulmonary: Effort: Pulmonary effort is normal. Abdominal: General: There is no distension. Musculoskeletal: General: Normal range of motion. Cervical back: Normal range of motion. Skin: General: Skin is warm and dry. Neurological: General: No focal deficit present. Mental Status: She is alert and oriented to person, place, and time. Psychiatric: Mood and Affect: Mood normal. Behavior: Behavior normal. Thought Content: Thought content normal. Judgment: Judgment normal. Assessment/Plan Advised she take 1/2 of her triamterene-hydrochlorothiazide when she gets home and monitor BP closely, if remaining high to take whole tablet. Lumbar Xray today, will call with results Follow up prn documented in this encounter [facility] Work Phone: 04-21-2023 Nurse Note Discharge Note: Follow up phone call: 04/24/2023 1035 Pt states is doing well, states only issue is that [facility] has not been in contact, is wishing to use another [facility] agency, call transferred to long term care social worker ext [phone]. Almas RN [facility] 04-21-2023 Nurse Note Discharge Note: Follow up phone call: 04/24/2023 1035 Pt states is doing well, states only issue is that [facility] has not been in contact, is wishing to use another [facility] agency, call transferred to long term care social worker ext [phone]. Almas RN Discharge Note: 04/21/2023 1742 Discharged via wheelchair to private car accompanied by PCT, personal belongings taken with pt, no distress noted, no complaints voiced. Almas RN Discharge Note: 04/21/2023 1630 Discharge instructions and pt responsibilities reviewed with pt and copy given. Notified prescription has been electronically submitted to [facility] per pt preference. Reviewed dose, purpose, side effects, and when next doses are due. Reviewed all home medications. Syncope education reviewed with pt and information sheets given. Pt verbalizes understanding of instructions received, verbalizes understanding of when to seek medical attention, denies any home going or personal care needs outside of [facility]. Pt states daughter will transport home. Almas ROWE Notified by PT that pt c/o chest heaviness during ambulation and Pain had subsided once pt got back to room and sat in recliner. On assessment, pt denied any chest heaviness/pain. Pt expressed some blurry vision both with ambulation/at rest and dizziness during ambulation. BP 144/89, HR 71. Pt lying in bed and states that the dizziness has gone away. Dr. Magallon notified. No new orders. documented in this encounter [facility] Work Phone: 04-21-2023 Nurse Note Discharge Note: 04/21/2023 1742 Discharged via wheelchair to private car accompanied by PCT, personal belongings taken with pt, no distress noted, no complaints voiced. Almas ROWE [facility] 04-21-2023 Nurse Note Discharge Note: 04/21/2023 1742 Discharged via wheelchair to private car accompanied by PCT, personal belongings taken with pt, no distress noted, no complaints voiced. Almas ROWE Discharge Note: 04/21/2023 1630 Discharge instructions and pt responsibilities reviewed with pt and copy given. Notified prescription has been electronically submitted to [facility] per pt preference. Reviewed dose, purpose, side effects, and when next doses are due. Reviewed all home medications. Syncope education reviewed with pt and information sheets given. Pt verbalizes understanding of instructions received, verbalizes understanding of when to seek medical attention, denies any home going or personal care needs outside of [facility]. Pt states daughter will transport home. Almas ROWE Notified by PT that pt c/o chest heaviness during ambulation and Pain had subsided once pt got back to room and sat in recliner. On assessment, pt denied any chest heaviness/pain. Pt expressed some blurry vision both with ambulation/at rest and dizziness during ambulation. BP 144/89, HR 71. Pt lying in bed and states that the dizziness has gone away. Dr. Magallon notified. No new orders. documented in this encounter [facility] Work Phone: 04-21-2023 Nurse Note Discharge Note: 04/21/2023 1630 Discharge instructions and pt responsibilities reviewed with pt and copy given. Notified prescription has been electronically submitted to [facility] per pt preference. Reviewed dose, purpose, side effects, and when next doses are due. Reviewed all home medications. Syncope education reviewed with pt and information sheets given. Pt verbalizes understanding of instructions received, verbalizes understanding of when to seek medical attention, denies any home going or personal care needs outside of [facility]. Pt states daughter will transport home. Almas ROWE [facility] Work Phone: 04-21-2023 History of Present illness Narrative Physical Therapy Physical Therapy Treatment Patient Name: Christine Mays Today's Date: 04/21/2023 Time Calculation Start Time: 1242 Stop Time: 1316 Time Calculation (min): 34 min Assessment/Plan PT Assessment Assessment Comment: (Noted this session she had decreased pain overall in B/L thighs/hips and could tolerate sitting with minimal c/o pain. Most difficulty with transition from sit to stand as pain increased during this transfer. She did ambulate increased gait distances with on;y 1 standing rest break secondary to fatigue . End of Session Patient Position: Up in chair, Alarm off, not on at start of session PT Plan PT Plan: Skilled PT (Cont with strengthening and gait training to allow improved I and ease with functional transfers and standing ADLs .) PT Frequency: Daily PT Discharge Recommendations: Moderate intensity level of continued care General Visit Information: Subjective She reports pain at sitting 5/10 , but during STS trnsfer her leg pain increases to 7-8/10. Agreeable to seated LE PREs and ambulating in person. Precautions Vital Signs: Vital Signs Heart Rate: 79 SpO2: 95 % Objective Pain: Pain Assessment Pain Assessment: 0-10 Pain Score: 5 - Moderate pain Pain Type: Acute pain Pain Location: Hip Pain Radiating Towards: thighs Cognition: Cognition Overall Cognitive Status: Within Functional Limits Treatments: Therapeutic Exercise Therapeutic Exercise Activity 1: LAQ Therapeutic Exercise Activity 2: HSC Therapeutic Exercise Activity 3: HR/TR seated Therapeutic Exercise Activity 4: Seated Mini Marches Therapeutic Exercise Activity 5: Seated Q sets Therapeutic Exercise Activity 6: Hip Add ISO Therapeutic Exercise Activity 7: Hip ABD ISO Outcome Measures: [facility] Basic Mobility Turning from your back to your side while in a flat bed without using bedrails: None Moving from lying on your back to sitting on the side of a flat bed without using bedrails: A little Moving to and from bed to chair (including a wheelchair): A little Standing up from a chair using your arms (e.g. wheelchair or bedside chair): A little To walk in hospital room: A little Climbing 3-5 steps with railing: A lot Basic Mobility - Total Score: 18 Education Documentation Home Exercise Program, taught by Chio Patel PTA at 04/21/2023 2:21 PM. Learner: Patient Readiness: Eager Method: Explanation Response: Demonstrated Understanding Mobility Training, taught by Chio Patel PTA at 04/21/2023 2:21 PM. Learner: Patient Readiness: Eager Method: Explanation Response: Demonstrated Understanding Education Comments No comments found. OP EDUCATION: Encounter Problems Encounter Problems (Active) Mobility STG Gait (Progressing) Start: 04/19/23 Expected End: 04/30/23 Gait: Established Date 16-Apr-2023 Gait: Tift Level Goal modified independent Gait: Assistive Device Goal rolling walker Gait: Distance Goal 150ft Gait: Time Frame for Goal 2 wks STG- Assistive Device Use (Progressing) Start: 04/19/23 Expected End: 04/30/23 Miscellaneous: Established Date 16-Apr-2023 Miscellaneous: Goal Details Patient will demonstrate good understanding of use of AD during transfers and mobility patient will participate in 30 min PT session without fatigue or increase in pain Miscellaneous: Time Frame for Goal 2 wks Other STG Strength (Progressing) Start: 04/19/23 Expected End: 04/30/23 Strength: Established Date 16-Apr-2023 Strength Train: Goal WNL Strength Train: Upper Extremities Goal upper extremity(s) Bilateral: Strength Train: Time Frame for Goal 2 wks STG Energy Conservation (Progressing) Start: 04/19/23 Expected End: 04/30/23 Energy Conservation: Established Date 16-Apr-2023 Energy Conservation: Goal Details Pt will demonstrate I with energy conservation techniques to increase functional activity tolerance to x15+ min without rest breaks/while maintaining O2 sats Energy Conservation: Time Frame for Goal 2 wks Pain - Adult Transfers STG Bed Mobility (Progressing) Start: 04/19/23 Expected End: 04/30/23 Bed Mobility: Date Established 16-Apr-2023 Bed Mobility: Tift Level Goal independent Bed Mobility: Time Frame for Goal 2 wks STG- Transfers (Progressing) Start: 04/19/23 Expected End: 04/30/23 Transfer: Established Date 16-Apr-2023 Transfer: Transfer Type Goal kcs-xk-isujj/fflpv-bj-rtu; puq-xh-fuimu/alvfv-xp-tek Transfer: Tift Level Goal modified independent Transfer: Assistive Device Goal rolling walker Transfer: Time Frame for Goal 2 wks Transfers STG Toilet Transfers (Progressing) Start: 04/19/23 Expected End: 04/30/23 Transfer: Established Date 16-Apr-2023 Transfer: Transfer Type Goal toilet Transfer: Tift Level Goal modified independent Transfer: Time Frame for Goal 2 wks Christine Mays is a 78 y.o. female on day 4 of admission presenting with Near syncope. Subjective Patient resting comfortably, no acute complaints. Patient ambulating w/walker. Objective Physical Exam General Appearance: awake and alert, AAOx3, NAD HEENT: nc/at, eomi, perrla, moist mucous membranes Resp: ctab; no wheezing, rhonchi, or rales, normal respiratory effort Cardio: rrr. S1s2 GI: soft, ntnd, BS+ Ext: no edema, 2+ pulses b/l Last Recorded Vitals Blood pressure 144/89, pulse 71, temperature 36.3 C (97.3 F), temperature source Tympanic, resp. rate 18, height 1.498 m (4' 10.98"), weight 69 kg (152 lb 1.9 oz), SpO2 94 %. Intake/Output last 3 Shifts: I/O last 3 completed shifts: In: 720 (10.4 mL/kg) [P.O.:720] Out: - (0 mL/kg) Weight: 69 kg Relevant Results Scheduled medications apixaban, 10 mg, oral, q12h [START ON 04/23/2023] apixaban, 5 mg, oral, q12h atenolol, 25 mg, oral, Daily gabapentin, 300 mg, oral, BID levothyroxine, 112 mcg, oral, Daily LORazepam, 0.5 mg, oral, Nightly magnesium oxide, 400 mg, oral, Daily oxygen, , inhalation, Continuous - / traZODone, 50 mg, oral, Nightly Continuous medications PRN medications PRN medications: acetaminophen, magnesium hydroxide, morphine, ondansetron, tiZANidine, traMADol Results for orders placed or performed during the hospital encounter of 04/16/23 (from the past 24 hour(s)) CBC Result Value Ref Range WBC 7.3 4.4 - 11.3 x10*3/uL nRBC 0.0 0.0 - 0.0 /100 WBCs RBC 2.73 (L) 4.00 - 5.20 x10*6/uL Hemoglobin 8.9 (L) 12.0 - 16.0 g/dL Hematocrit 27.9 (L) 36.0 - 46.0 % MCV 102 (H) 80 - 100 fL MCH 32.6 26.0 - 34.0 pg MCHC 31.9 (L) 32.0 - 36.0 g/dL RDW 12.5 11.5 - 14.5 % Platelets 417 150 - 450 x10*3/uL MPV 8.2 7.5 - 11.5 fL Basic metabolic panel Result Value Ref Range Glucose 88 74 - 99 mg/dL Sodium 134 (L) 136 - 145 mmol/L Potassium 4.0 3.5 - 5.3 mmol/L Chloride 100 98 - 107 mmol/L Bicarbonate 30 21 - 32 mmol/L Anion Gap 8 (L) 10 - 20 mmol/L Urea Nitrogen 11 6 - 23 mg/dL Creatinine 0.41 (L) 0.50 - 1.05 mg/dL eGFR >90 >60 mL/min/1.73m*2 Calcium 9.0 8.6 - 10.3 mg/dL Assessment/Plan Principal Problem: Near syncope 78-year-old female with a past medical history of spinal stenosis/lumbar radiculopathy status post recent L3-L5 lumbar surgery, hypertension, osteoarthritis, hypothyroidism who presented to the emergency room from shelter facility for syncope. CT scan of the chest showed small nonocclusive segmental pulmonary embolism in the right lower lobe. Blood work-up showed hyponatremia, hypokalemia, hypomagnesemia. Plan Continue Eliquis To follow PCP and hematology after discharge Patient will follow Ortho/spine for arthritis issues and optimal pain control after recent procedure Muscle relaxants and narcotics as deemed appropriate Watch polypharmacy No DVT on venous duplex ultrasound lower extremity Immobility likely contributing factor also Echocardiogram with slight LVH and impaired diastolic filling pattern EF 60 to 65% Patient pending discharge to SNF, awaiting auth; today she states she may prefer home w/home PT if able Kati Meza MD Physical Therapy Physical Therapy Treatment Patient Name: Christine Mays Today's Date: 04/20/2023 Time Calculation Start Time: 1055 Stop Time: 1114 Time Calculation (min): 19 min Assessment/Plan PT Assessment Assessment Comment: Pt. sitting in reclinr upon arrival, agreeable to therapy. Pt. states she has pain with LE's as she does everyday. Pt. ambulated decreased distance d/t c/o chest discomfort mentioned above. Pt. returned to chair with call light within reach. Nurse was seeing patient right after PT session. Continue with POC and progress per tolerance to imrpove endurance and ease with ambulation. MB End of Session Patient Position: Up in chair, Alarm off, not on at start of session PT Plan PT Frequency: Daily PT Discharge Recommendations: Moderate intensity level of continued care General Visit Information: PT Visit PT Received On: 04/20/23 General Patient Position Received: (Sitting in recliner upon arrival) General Comment: C/o "heaviness" during ambulation;,nurse Virgen notified of patient's complaint. Pt. reports sx.'s subsiding by time she got back to chair. Subjective Precautions: Vital Signs: Vital Signs SpO2: 95 % Objective Pain: Pain Assessment Pain Assessment: 0-10 Pain Score: 5 - Moderate pain Pain Type: Acute pain Pain Location: Leg Pain Orientation: Lower Pain Radiating Towards: bilateral LE's Pain Descriptors: Sharp Pain Frequency: Constant/continuous Pain Onset: Ongoing Cognition: Cognition Overall Cognitive Status: (WNL) Postural Control: Postural Control Posture Comment: Pt. is wearing back brace Extremity/Trunk Assessments: Activity Tolerance: Treatments: Therapeutic Exercise Therapeutic Exercise Performed: Yes Therapeutic Exercise Activity 1: B/L HR/TR's x10 ea Therapeutic Exercise Activity 2: Seated marches, alt x10 Therapeutic Exercise Activity 3: Seated LAQ's x10 ea Ambulation/Gait Training Ambulation/Gait Training Performed: Yes Ambulation/Gait Training 1 Surface 1: Level tile Device 1: Rolling walker Gait Support Devices: Gait belt Assistance 1: Contact guard Comments/Distance (ft) 1: 110 ft. Transfers Transfer: Yes Transfer 1 Transfer From 1: Sit to Transfer to 1: Stand Transfer Device 1: Walker Transfer Level of Assistance 1: Contact guard Trials/Comments 1: Took frequent standing breaks during ambulation Outcome Measures: [facility] Basic Mobility Turning from your back to your side while in a flat bed without using bedrails: A lot Moving from lying on your back to sitting on the side of a flat bed without using bedrails: A lot Moving to and from bed to chair (including a wheelchair): A little Standing up from a chair using your arms (e.g. wheelchair or bedside chair): A little To walk in hospital room: A little Climbing 3-5 steps with railing: A lot Basic Mobility - Total Score: 15 Education Documentation Home Exercise Program, taught by Paulina Snyder PTA at 04/20/2023 11:47 AM. Learner: Patient Readiness: Eager Method: Demonstration Response: Demonstrated Understanding Mobility Training, taught by Paulina Snyder PTA at 04/20/2023 11:47 AM. Learner: Patient Readiness: Eager Method: Demonstration Response: Demonstrated Understanding Education Comments No comments found. OP EDUCATION: Encounter Problems Encounter Problems (Active) Mobility STG Gait (Progressing) Start: 04/19/23 Expected End: 04/30/23 Gait: Established Date 16-Apr-2023 Gait: Tift Level Goal modified independent Gait: Assistive Device Goal rolling walker Gait: Distance Goal 150ft Gait: Time Frame for Goal 2 wks STG- Assistive Device Use (Progressing) Start: 04/19/23 Expected End: 04/30/23 Miscellaneous: Established Date 16-Apr-2023 Miscellaneous: Goal Details Patient will demonstrate good understanding of use of AD during transfers and mobility patient will participate in 30 min PT session without fatigue or increase in pain Miscellaneous: Time Frame for Goal 2 wks Other STG Strength (Progressing) Start: 04/19/23 Expected End: 04/30/23 Strength: Established Date 16-Apr-2023 Strength Train: Goal WNL Strength Train: Upper Extremities Goal upper extremity(s) Bilateral: Strength Train: Time Frame for Goal 2 wks STG Energy Conservation (Progressing) Start: 04/19/23 Expected End: 04/30/23 Energy Conservation: Established Date 16-Apr-2023 Energy Conservation: Goal Details Pt will demonstrate I with energy conservation techniques to increase functional activity tolerance to x15+ min without rest breaks/while maintaining O2 sats Energy Conservation: Time Frame for Goal 2 wks Pain - Adult Transfers STG Bed Mobility (Progressing) Start: 04/19/23 Expected End: 04/30/23 Bed Mobility: Date Established 16-Apr-2023 Bed Mobility: Tift Level Goal independent Bed Mobility: Time Frame for Goal 2 wks STG- Transfers (Progressing) Start: 04/19/23 Expected End: 04/30/23 Transfer: Established Date 16-Apr-2023 Transfer: Transfer Type Goal tiw-vm-dvdim/gzvjd-oz-hlv; tzs-tp-wsnug/wgzaj-pj-rxy Transfer: Tift Level Goal modified independent Transfer: Assistive Device Goal rolling walker Transfer: Time Frame for Goal 2 wks Transfers STG Toilet Transfers (Progressing) Start: 04/19/23 Expected End: 04/30/23 Transfer: Established Date 16-Apr-2023 Transfer: Transfer Type Goal toilet Transfer: Tift Level Goal modified independent Transfer: Time Frame for Goal 2 wks Christine Mays is a 78 y.o. female on day 3 of admission presenting with Near syncope. Subjective Patient feels generalized weakness and denies any chest pain or shortness of breath at rest. Objective Physical Exam HENT: Head: Normocephalic and atraumatic. Right Ear: Tympanic membrane normal. Left Ear: Tympanic membrane normal. Mouth/Throat: Pharynx: Oropharynx is clear. Eyes: Extraocular Movements: Extraocular movements intact. Conjunctiva/sclera: Conjunctivae normal. Pupils: Pupils are equal, round, and reactive to light. Cardiovascular: Rate and Rhythm: Normal rate and regular rhythm. Pulmonary: Effort: Pulmonary effort is normal. Abdominal: General: Bowel sounds are normal. Palpations: Abdomen is soft. Musculoskeletal: Cervical back: Normal range of motion and neck supple. Neurological: Mental Status: She is alert. Last Recorded Vitals Blood pressure 137/74, pulse 93, temperature 36.7 C (98.1 F), temperature source Temporal, resp. rate 20, height 1.498 m (4' 10.98"), weight 69 kg (152 lb 1.9 oz), SpO2 94 %. Intake/Output last 3 Shifts: No intake/output data recorded. Relevant Results Current Facility-Administered Medications: acetaminophen (Tylenol) tablet 650 mg, 650 mg, oral, q4h PRN, Radhames Snowden MD, 650 mg at 04/19/23 1417 apixaban (Eliquis) tablet 10 mg, 10 mg, oral, q12h, Radhames Snowden MD, 10 mg at 04/19/23 1112 [START ON 04/23/2023] apixaban (Eliquis) tablet 5 mg, 5 mg, oral, q12h, Radhames Snowden MD atenolol (Tenormin) tablet 25 mg, 25 mg, oral, Daily, Radhames Snowden MD gabapentin (Neurontin) capsule 300 mg, 300 mg, oral, BID, Radhames Snowden MD, 300 mg at 04/19/23 0825 levothyroxine (Synthroid, Levoxyl) tablet 112 mcg, 112 mcg, oral, Daily, Radhames Snowden MD, 112 mcg at 04/19/23 0527 LORazepam (Ativan) tablet 0.5 mg, 0.5 mg, oral, Nightly, Radhames Snowden MD magnesium hydroxide (Milk of Magnesia) 2,400 mg/10 mL suspension 10 mL, 10 mL, oral, q24h PRN, Radhames Snowden MD magnesium oxide (Mag-Ox) tablet 400 mg, 400 mg, oral, Daily, Radhames Snowden MD, 400 mg at 04/19/23 0825 morphine injection 2 mg, 2 mg, intravenous, q4h PRN, Radhames Snowden MD, 2 mg at 04/19/23 0530 ondansetron (Zofran) injection 4 mg, 4 mg, intravenous, q4h PRN, Radhames Snowden MD oxygen (O2) therapy, , inhalation, Continuous - , Radhames Snowden MD, Start at 04/19/23 0800 tiZANidine (Zanaflex) tablet 2 mg, 2 mg, oral, q8h PRN, Radhames Snowden MD traMADol (Ultram) tablet 50 mg, 50 mg, oral, q6h PRN, Radhames Snowden MD, 50 mg at 04/19/23 1755 traZODone (Desyrel) tablet 50 mg, 50 mg, oral, Nightly, Radhames Snowden MD Assessment/Plan Principal Problem: Near syncope 78-year-old female with a past medical history of spinal stenosis/lumbar radiculopathy status post recent L3-L5 lumbar surgery, hypertension, osteoarthritis, hypothyroidism who presented to the emergency room from shelter facility for syncope. CT scan of the chest showed small nonocclusive segmental pulmonary embolism in the right lower lobe. Blood work-up showed hyponatremia, hypokalemia, hypomagnesemia. Plan Eliquis To follow PCP and hematology Patient will follow Ortho/spine for arthritis issues and optimal pain control Muscle relaxants and narcotics as deemed appropriate Watch polypharmacy No DVT on venous duplex ultrasound lower extremity Immobility likely contributing factor also Echocardiogram with slight LVH and impaired diastolic filling pattern EF 60 to 65% Replaced electrolytes including hypokalemia, Hypomagnesemia and hypophosphatemia Hydrated and sodium level is stable Pain and symptoms better overall hemodynamically stable, no fever Joaquin Meng MD Patient is accepted to return to [facility] for rehab [facility]; Patient's [place] insurance is denying auth. Care Transitions has submitted for a Fast Appeal and awaits the outcome of same. Physical Therapy Physical Therapy Treatment Patient Name: Christine Mays Today's Date: 04/19/2023 Time Calculation Start Time: 839 Stop Time: 909 Time Calculation (min): 30 min Assessment/Plan PT Assessment Assessment Comment: Pt. sitting in recliner upon arrival, agreeable to therapy. Pt. states she has pain/discomfort with buttocks and LE's. Fair tolerance with transfers and gait with CGA needed. Pt. ambulated with FWW with several standing rest breaks needed. Pt. states it feels good to move. Continue with POC and progress per tolerance to improve functional mobility with greater ease and safety. MB End of Session Patient Position: Up in chair, Alarm off, not on at start of session PT Plan PT Frequency: Daily PT Discharge Recommendations: Moderate intensity level of continued care General Visit Information: PT Visit PT Received On: 04/19/23 General Patient Position Received: (Sitting in recliner upon arrival) General Comment: telemetry Subjective Precautions: Vital Signs: Vital Signs SpO2: 96 % Objective Pain: Pain Assessment Pain Assessment: 0-10 Pain Score: 6 Pain Type: Referred pain Pain Location: (Bilateral LE's) Pain Orientation: Lower Pain Descriptors: Jabbing, Pins and needles Pain Frequency: Constant/continuous Pain Onset: Ongoing Cognition: Cognition Overall Cognitive Status: (WNL) Postural Control: Extremity/Trunk Assessments: Activity Tolerance: Treatments: Therapeutic Exercise Therapeutic Exercise Performed: Yes Therapeutic Exercise Activity 1: HR/TR's x10 ea B Therapeutic Exercise Activity 2: LAQ's x10-12 ea Therapeutic Exercise Activity 3: Seated Marches, alt x10 ea Therapeutic Exercise Activity 4: Seated Hip Adduction, isometric x10 5" hold Therapeutic Exercise Activity 5: Seated Hip Abduction, light resistance x10 Ambulation/Gait Training Ambulation/Gait Training Performed: Yes Ambulation/Gait Training 1 Surface 1: Level tile Device 1: Rolling walker Gait Support Devices: Gait belt Assistance 1: Contact guard Comments/Distance (ft) 1: 132ft. Transfers Transfer: Yes Transfer 1 Transfer From 1: Sit to Transfer to 1: Stand Transfer Device 1: Walker Transfer Level of Assistance 1: Contact guard Outcome Measures: [facility] Basic Mobility Turning from your back to your side while in a flat bed without using bedrails: A lot Moving from lying on your back to sitting on the side of a flat bed without using bedrails: A lot Moving to and from bed to chair (including a wheelchair): A little Standing up from a chair using your arms (e.g. wheelchair or bedside chair): A little To walk in hospital room: A little Climbing 3-5 steps with railing: A lot Basic Mobility - Total Score: 15 Education Documentation Home Exercise Program, taught by Paulina Snyder PTA at 04/19/2023 10:09 AM. Learner: Patient Readiness: Eager Method: Demonstration Response: Verbalizes Understanding, Demonstrated Understanding Mobility Training, taught by Paulina Snyder PTA at 04/19/2023 10:08 AM. Learner: Patient Readiness: Eager Method: Explanation Response: Verbalizes Understanding, Demonstrated Understanding Comment: Verbal cues needed to keep upright trunk during gait. Education Comments No comments found. OP EDUCATION: Encounter Problems Encounter Problems (Active) Mobility STG Gait (Progressing) Start: 04/19/23 Expected End: 04/30/23 Gait: Established Date 16-Apr-2023 Gait: Tift Level Goal modified independent Gait: Assistive Device Goal rolling walker Gait: Distance Goal 150ft Gait: Time Frame for Goal 2 wks STG- Assistive Device Use (Progressing) Start: 04/19/23 Expected End: 04/30/23 Miscellaneous: Established Date 16-Apr-2023 Miscellaneous: Goal Details Patient will demonstrate good understanding of use of AD during transfers and mobility patient will participate in 30 min PT session without fatigue or increase in pain Miscellaneous: Time Frame for Goal 2 wks Transfers STG Bed Mobility (Progressing) Start: 04/19/23 Expected End: 04/30/23 Bed Mobility: Date Established 16-Apr-2023 Bed Mobility: Tift Level Goal independent Bed Mobility: Time Frame for Goal 2 wks STG- Transfers (Progressing) Start: 04/19/23 Expected End: 04/30/23 Transfer: Established Date 16-Apr-2023 Transfer: Transfer Type Goal bfg-cr-kxyku/uoodg-jp-ems; dgi-wy-lahfg/hpher-th-dee Transfer: Tift Level Goal modified independent Transfer: Assistive Device Goal rolling walker Transfer: Time Frame for Goal 2 wks Service: Medicine Subjective Data: CHRISTIEN MAYS is a 78 year old Female who is Hospital Day # 4. Chronic arthritis related and musculoskeletal pain. Objective Data: Objective Information: T P R BP MAP SpO2 Value 36.6 83 18 168/81 87 98% Date/Time 04/18 7:55 04/18 7:55 04/18 7:55 04/18 7:55 04/17 19:50 04/18 7:55 Range (35.7C - 36.6C ) (74 - 89 ) (14 - 23 ) (127 - 177 )/ (46 - 81 ) (70 - 98 ) (93% - 98% ) Pain reported at 04/18 5:07: 7 = Severe Physical Exam Narrative: Physical Exam: Constitutional: awake/alert/oriented x3, not in acute distress, Eyes: PERRL, EOMI, clear sclera ENMT: normal hearing, mucous membranes moist, no pharyngeal erythema or exudates Head/Neck: neck supple, no apparent injury, no JVD, no lymphadenopathy, trachea midline Respiratory/Thorax: patent airways, clear to auscultation bilaterally, no crackles or wheezing or rhonchi Cardiovascular: Regular, rate and rhythm, no murmurs, 2+ equal pulses of the extremities Gastrointestinal: nondistended, positive bowel sounds, soft, non-tender, no rebound tenderness or guarding, no masses palpable, no organomegaly Extremities: no edema Neurological: intact senses, motor, response and reflexes, normal strength, babinski negative Psychological: Appropriate mood and behavior Skin: warm, no rashes Medication: Medications: CARDIOVASCULAR AGENTS: 1. Atenolol: 25 mg Oral Daily CENTRAL NERVOUS SYSTEM AGENTS: 1. Acetaminophen: 650 mg Oral Every 4 Hours PRN 2. Acetaminophen: 650 mg Oral Every 4 Hours PRN 3. Morphine Injectable: 2 mg IntraVenous Push Every 4 Hours PRN 4. traMADol: 50 mg Oral Every 6 Hours PRN 5. Gabapentin: 300 mg Oral 2 Times a Day 6. Ondansetron Injectable: 4 mg IntraVenous Push Every 4 Hours PRN 7. LORazepam: 0.5 mg Oral At Bedtime 8. tiZANidine: 2 mg Oral Every 8 Hours PRN COAGULATION MODIFIERS: 1. Apixaban: 10 mg Oral Every 12 Hours 2. Apixaban: 5 mg Oral Every 12 Hours GASTROINTESTINAL AGENTS: 1. Magnesium Hydroxide Oral Liquid: 10 mL Oral Every 24 Hours PRN HORMONES/HORMONE MODIFIERS: 1. Levothyroxine: 112 microgram(s) Oral Daily PSYCHOTHERAPEUTIC AGENTS: 1. traZODone: 50 mg Oral At Bedtime Conditional Medication Orders 1. Perflutren Lipid Microsphere (Activated) 1.3 mL / NaCL 0.9% T.V. 10 mL Injectable: 0.5 mL IntraVenous Push Once Recent Lab Results: Results: BMP: 04/18/2023 09:33 NA+ Cl- BUN / 132 L 97 L 12 / Glucose 164 H K+ HCO3- Creat \\ 4.0 29 0.44 L \\ Calcium : 9.3 Anion Gap : 10 I have reviewed these laboratory results: Basic Metabolic Panel 18-Apr-2023 09:33:00 Result Value Glucose, Serum 164 H NA 132 L K 4.0 CL 97 L Bicarbonate, Serum 29 Anion Gap, Serum 10 BUN 12 CREAT 0.44 L GFR Female >90 Calcium, Serum 9.3 Assessment and Plan: Code Status: Code Status DNAR with Added Limitations Advance Care Planning: Advance Care Planning: I evaluated the patient and determined the patient's capacity to understand the risks, benefits and alternatives to treatment. I elicited the patient's goals for treatment and reviewed advance directives and medical orders for life sustaining treatment. The patient was given an opportunity to review a blank advance directive as appropriate. Assessment: 78-year-old female with a past medical history of spinal stenosis/lumbar radiculopathy status post recent L3-L5 lumbar surgery, hypertension, osteoarthritis, hypothyroidism who presented to the emergency room from shelter facility for syncope. CT scan of the chest showed small nonocclusive segmental pulmonary embolism in the right lower lobe. Blood work-up showed hyponatremia, hypokalemia, hypomagnesemia. Plan Patient was started on heparin drip then switched to Eliquis To follow PCP and hematology Patient will follow Ortho/spine for arthritis issues and optimal pain control Muscle relaxants and narcotics as deemed appropriate Watch polypharmacy No DVT on venous duplex ultrasound lower extremity Immobility likely contributing factor also Echocardiogram with slight LVH and impaired diastolic filling pattern EF 60 to 65% Replaced electrolytes including hypokalemia, Hypomagnesemia and hypophosphatemia Hydrated and sodium level is stable Pain and symptoms better overall hemodynamically stable, no fever Electronic Signatures: Joaquin Meng) (Signed 18-Apr-2023 12:22) Authored: Service, Subjective Data, Objective Data, Assessment and Plan, Note Completion Last Updated: 18-Apr-2023 12:22 by Joaquin Meng) documented in this encounter [facility] Work Phone: 04-20-2023 History of Present illness Narrative Christine Mays is a 78 y.o. female on day 4 of admission presenting with Near syncope. Subjective Patient resting comfortably, no acute complaints. Patient ambulating w/walker. Objective Physical Exam General Appearance: awake and alert, AAOx3, NAD HEENT: nc/at, eomi, perrla, moist mucous membranes Resp: ctab; no wheezing, rhonchi, or rales, normal respiratory effort Cardio: rrr. S1s2 GI: soft, ntnd, BS+ Ext: no edema, 2+ pulses b/l Last Recorded Vitals Blood pressure 144/89, pulse 71, temperature 36.3 C (97.3 F), temperature source Tympanic, resp. rate 18, height 1.498 m (4' 10.98"), weight 69 kg (152 lb 1.9 oz), SpO2 94 %. Intake/Output last 3 Shifts: I/O last 3 completed shifts: In: 720 (10.4 mL/kg) [P.O.:720] Out: - (0 mL/kg) Weight: 69 kg Relevant Results Scheduled medications apixaban, 10 mg, oral, q12h [START ON 04/23/2023] apixaban, 5 mg, oral, q12h atenolol, 25 mg, oral, Daily gabapentin, 300 mg, oral, BID levothyroxine, 112 mcg, oral, Daily LORazepam, 0.5 mg, oral, Nightly magnesium oxide, 400 mg, oral, Daily oxygen, , inhalation, Continuous - 02/ traZODone, 50 mg, oral, Nightly Continuous medications PRN medications PRN medications: acetaminophen, magnesium hydroxide, morphine, ondansetron, tiZANidine, traMADol Results for orders placed or performed during the hospital encounter of 04/16/23 (from the past 24 hour(s)) CBC Result Value Ref Range WBC 7.3 4.4 - 11.3 x10*3/uL nRBC 0.0 0.0 - 0.0 /100 WBCs RBC 2.73 (L) 4.00 - 5.20 x10*6/uL Hemoglobin 8.9 (L) 12.0 - 16.0 g/dL Hematocrit 27.9 (L) 36.0 - 46.0 % MCV 102 (H) 80 - 100 fL MCH 32.6 26.0 - 34.0 pg MCHC 31.9 (L) 32.0 - 36.0 g/dL RDW 12.5 11.5 - 14.5 % Platelets 417 150 - 450 x10*3/uL MPV 8.2 7.5 - 11.5 fL Basic metabolic panel Result Value Ref Range Glucose 88 74 - 99 mg/dL Sodium 134 (L) 136 - 145 mmol/L Potassium 4.0 3.5 - 5.3 mmol/L Chloride 100 98 - 107 mmol/L Bicarbonate 30 21 - 32 mmol/L Anion Gap 8 (L) 10 - 20 mmol/L Urea Nitrogen 11 6 - 23 mg/dL Creatinine 0.41 (L) 0.50 - 1.05 mg/dL eGFR >90 >60 mL/min/1.73m*2 Calcium 9.0 8.6 - 10.3 mg/dL Assessment/Plan Principal Problem: Near syncope 78-year-old female with a past medical history of spinal stenosis/lumbar radiculopathy status post recent L3-L5 lumbar surgery, hypertension, osteoarthritis, hypothyroidism who presented to the emergency room from shelter facility for syncope. CT scan of the chest showed small nonocclusive segmental pulmonary embolism in the right lower lobe. Blood work-up showed hyponatremia, hypokalemia, hypomagnesemia. Plan Continue Eliquis To follow PCP and hematology after discharge Patient will follow Ortho/spine for arthritis issues and optimal pain control after recent procedure Muscle relaxants and narcotics as deemed appropriate Watch polypharmacy No DVT on venous duplex ultrasound lower extremity Immobility likely contributing factor also Echocardiogram with slight LVH and impaired diastolic filling pattern EF 60 to 65% Patient pending discharge to SNF, awaiting auth; today she states she may prefer home w/home PT if able Kati Meza MD Christine Mays is a 78 y.o. female on day 3 of admission presenting with Near syncope. Subjective Patient feels generalized weakness and denies any chest pain or shortness of breath at rest. Objective Physical Exam HENT: Head: Normocephalic and atraumatic. Right Ear: Tympanic membrane normal. Left Ear: Tympanic membrane normal. Mouth/Throat: Pharynx: Oropharynx is clear. Eyes: Extraocular Movements: Extraocular movements intact. Conjunctiva/sclera: Conjunctivae normal. Pupils: Pupils are equal, round, and reactive to light. Cardiovascular: Rate and Rhythm: Normal rate and regular rhythm. Pulmonary: Effort: Pulmonary effort is normal. Abdominal: General: Bowel sounds are normal. Palpations: Abdomen is soft. Musculoskeletal: Cervical back: Normal range of motion and neck supple. Neurological: Mental Status: She is alert. Last Recorded Vitals Blood pressure 137/74, pulse 93, temperature 36.7 C (98.1 F), temperature source Temporal, resp. rate 20, height 1.498 m (4' 10.98"), weight 69 kg (152 lb 1.9 oz), SpO2 94 %. Intake/Output last 3 Shifts: No intake/output data recorded. Relevant Results Current Facility-Administered Medications: acetaminophen (Tylenol) tablet 650 mg, 650 mg, oral, q4h PRN, Radhames Snowden MD, 650 mg at 04/19/23 1417 apixaban (Eliquis) tablet 10 mg, 10 mg, oral, q12h, Radhames Snowden MD, 10 mg at 04/19/23 1112 [START ON 04/23/2023] apixaban (Eliquis) tablet 5 mg, 5 mg, oral, q12h, Radhames Snowden MD atenolol (Tenormin) tablet 25 mg, 25 mg, oral, Daily, Radhames Snowden MD gabapentin (Neurontin) capsule 300 mg, 300 mg, oral, BID, Radhames Snowden MD, 300 mg at 04/19/23 0825 levothyroxine (Synthroid, Levoxyl) tablet 112 mcg, 112 mcg, oral, Daily, Radhames Snowden MD, 112 mcg at 04/19/23 0527 LORazepam (Ativan) tablet 0.5 mg, 0.5 mg, oral, Nightly, Radhames Snowden MD magnesium hydroxide (Milk of Magnesia) 2,400 mg/10 mL suspension 10 mL, 10 mL, oral, q24h PRN, Radhames Snowden MD magnesium oxide (Mag-Ox) tablet 400 mg, 400 mg, oral, Daily, Radhames Snowden MD, 400 mg at 04/19/23 0825 morphine injection 2 mg, 2 mg, intravenous, q4h PRN, Radhames Snowden MD, 2 mg at 04/19/23 0530 ondansetron (Zofran) injection 4 mg, 4 mg, intravenous, q4h PRN, Radhames Snowden MD oxygen (O2) therapy, , inhalation, Continuous - , Radhames Snowden MD, Start at 04/19/23 0800 tiZANidine (Zanaflex) tablet 2 mg, 2 mg, oral, q8h PRN, Radhames Snowden MD traMADol (Ultram) tablet 50 mg, 50 mg, oral, q6h PRN, Radhames Snowden MD, 50 mg at 04/19/23 1755 traZODone (Desyrel) tablet 50 mg, 50 mg, oral, Nightly, Radhames Snowden MD Assessment/Plan Principal Problem: Near syncope 78-year-old female with a past medical history of spinal stenosis/lumbar radiculopathy status post recent L3-L5 lumbar surgery, hypertension, osteoarthritis, hypothyroidism who presented to the emergency room from shelter facility for syncope. CT scan of the chest showed small nonocclusive segmental pulmonary embolism in the right lower lobe. Blood work-up showed hyponatremia, hypokalemia, hypomagnesemia. Plan Eliquis To follow PCP and hematology Patient will follow Ortho/spine for arthritis issues and optimal pain control Muscle relaxants and narcotics as deemed appropriate Watch polypharmacy No DVT on venous duplex ultrasound lower extremity Immobility likely contributing factor also Echocardiogram with slight LVH and impaired diastolic filling pattern EF 60 to 65% Replaced electrolytes including hypokalemia, Hypomagnesemia and hypophosphatemia Hydrated and sodium level is stable Pain and symptoms better overall hemodynamically stable, no fever Joaquin Meng MD Patient is accepted to return to [facility] for rehab at [facility]; Patient's [place] insurance is denying auth. [facility] [employer] has submitted for a Fast Appeal and awaits the outcome of same. Service: Medicine Subjective Data: CHRISTINE MAYS is a 78 year old Female who is Hospital Day # 4. Chronic arthritis related and musculoskeletal pain. Objective Data: Objective Information: T P R BP MAP SpO2 Value 36.6 83 18 168/81 87 98% Date/Time 04/18 7:55 04/18 7:55 04/18 7:55 04/18 7:55 04/17 19:50 04/18 7:55 Range (35.7C - 36.6C ) (74 - 89 ) (14 - 23 ) (127 - 177 )/ (46 - 81 ) (70 - 98 ) (93% - 98% ) Pain reported at 04/18 5:07: 7 = Severe Physical Exam Narrative: Physical Exam: Constitutional: awake/alert/oriented x3, not in acute distress, Eyes: PERRL, EOMI, clear sclera ENMT: normal hearing, mucous membranes moist, no pharyngeal erythema or exudates Head/Neck: neck supple, no apparent injury, no JVD, no lymphadenopathy, trachea midline Respiratory/Thorax: patent airways, clear to auscultation bilaterally, no crackles or wheezing or rhonchi Cardiovascular: Regular, rate and rhythm, no murmurs, 2+ equal pulses of the extremities Gastrointestinal: nondistended, positive bowel sounds, soft, non-tender, no rebound tenderness or guarding, no masses palpable, no organomegaly Extremities: no edema Neurological: intact senses, motor, response and reflexes, normal strength, babinski negative Psychological: Appropriate mood and behavior Skin: warm, no rashes Medication: Medications: CARDIOVASCULAR AGENTS: 1. Atenolol: 25 mg Oral Daily CENTRAL NERVOUS SYSTEM AGENTS: 1. Acetaminophen: 650 mg Oral Every 4 Hours PRN 2. Acetaminophen: 650 mg Oral Every 4 Hours PRN 3. Morphine Injectable: 2 mg IntraVenous Push Every 4 Hours PRN 4. traMADol: 50 mg Oral Every 6 Hours PRN 5. Gabapentin: 300 mg Oral 2 Times a Day 6. Ondansetron Injectable: 4 mg IntraVenous Push Every 4 Hours PRN 7. LORazepam: 0.5 mg Oral At Bedtime 8. tiZANidine: 2 mg Oral Every 8 Hours PRN COAGULATION MODIFIERS: 1. Apixaban: 10 mg Oral Every 12 Hours 2. Apixaban: 5 mg Oral Every 12 Hours GASTROINTESTINAL AGENTS: 1. Magnesium Hydroxide Oral Liquid: 10 mL Oral Every 24 Hours PRN HORMONES/HORMONE MODIFIERS: 1. Levothyroxine: 112 microgram(s) Oral Daily PSYCHOTHERAPEUTIC AGENTS: 1. traZODone: 50 mg Oral At Bedtime Conditional Medication Orders 1. Perflutren Lipid Microsphere (Activated) 1.3 mL / NaCL 0.9% T.V. 10 mL Injectable: 0.5 mL IntraVenous Push Once Recent Lab Results: Results: BMP: 04/18/2023 09:33 NA+ Cl- BUN / 132 L 97 L 12 / Glucose 164 H K+ HCO3- Creat \\ 4.0 29 0.44 L \\ Calcium : 9.3 Anion Gap : 10 I have reviewed these laboratory results: Basic Metabolic Panel 18-Apr-2023 09:33:00 Result Value Glucose, Serum 164 H NA 132 L K 4.0 CL 97 L Bicarbonate, Serum 29 Anion Gap, Serum 10 BUN 12 CREAT 0.44 L GFR Female >90 Calcium, Serum 9.3 Assessment and Plan: Code Status: Code Status DNAR with Added Limitations Advance Care Planning: Advance Care Planning: I evaluated the patient and determined the patient's capacity to understand the risks, benefits and alternatives to treatment. I elicited the patient's goals for treatment and reviewed advance directives and medical orders for life sustaining treatment. The patient was given an opportunity to review a blank advance directive as appropriate. Assessment: 78-year-old female with a past medical history of spinal stenosis/lumbar radiculopathy status post recent L3-L5 lumbar surgery, hypertension, osteoarthritis, hypothyroidism who presented to the emergency room from shelter facility for syncope. CT scan of the chest showed small nonocclusive segmental pulmonary embolism in the right lower lobe. Blood work-up showed hyponatremia, hypokalemia, hypomagnesemia. Plan Patient was started on heparin drip then switched to Eliquis To follow PCP and hematology Patient will follow Ortho/spine for arthritis issues and optimal pain control Muscle relaxants and narcotics as deemed appropriate Watch polypharmacy No DVT on venous duplex ultrasound lower extremity Immobility likely contributing factor also Echocardiogram with slight LVH and impaired diastolic filling pattern EF 60 to 65% Replaced electrolytes including hypokalemia, Hypomagnesemia and hypophosphatemia Hydrated and sodium level is stable Pain and symptoms better overall hemodynamically stable, no fever Electronic Signatures: Joaquin Meng) (Signed 18-Apr-2023 12:22) Authored: Service, Subjective Data, Objective Data, Assessment and Plan, Note Completion Last Updated: 18-Apr-2023 12:22 by Joaquin Meng) documented in this encounter [facility] Work Phone: 04-20-2023 Nurse Note Notified by PT that pt c/o chest heaviness during ambulation and Pain had subsided once pt got back to room and sat in recliner. On assessment, pt denied any chest heaviness/pain. Pt expressed some blurry vision both with ambulation/at rest and dizziness during ambulation. BP 144/89, HR 71. Pt lying in bed and states that the dizziness has gone away. Dr. Magallon notified. No new orders. [facility] 04-20-2023 Plan of care note Problem: Pain - Adult Goal: Verbalizes/displays adequate comfort level or baseline comfort level Outcome: Progressing Problem: Safety - Adult Goal: Free from fall injury Outcome: Progressing Problem: Discharge Planning Goal: Discharge to home or other facility with appropriate resources Outcome: Progressing Problem: Chronic Conditions and Co-morbidities Goal: Patient's chronic conditions and co-morbidity symptoms are monitored and maintained or improved Outcome: Progressing Problem: Pain Goal: Takes deep breaths with improved pain control throughout the shift Outcome: Progressing Goal: Turns in bed with improved pain control throughout the shift Outcome: Progressing Goal: Walks with improved pain control throughout the shift Outcome: Progressing Goal: Performs ADL's with improved pain control throughout shift Outcome: Progressing Goal: Participates in PT with improved pain control throughout the shift Outcome: Progressing Goal: Free from opioid side effects throughout the shift Outcome: Progressing Goal: Free from acute confusion related to pain meds throughout the shift Outcome: Progressing The patient's goals for the shift include The clinical goals for the shift include pt will have improved pain Over the shift, the patient did not make progress toward the following goals. Barriers to progression include . Recommendations to address these barriers include . [facility] Work Phone: 04-20-2023 Miscellaneous Notes Problem: Pain - Adult Goal: Verbalizes/displays adequate comfort level or baseline comfort level Outcome: Progressing Problem: Safety - Adult Goal: Free from fall injury Outcome: Progressing Problem: Discharge Planning Goal: Discharge to home or other facility with appropriate resources Outcome: Progressing Problem: Chronic Conditions and Co-morbidities Goal: Patient's chronic conditions and co-morbidity symptoms are monitored and maintained or improved Outcome: Progressing Problem: Pain Goal: Takes deep breaths with improved pain control throughout the shift Outcome: Progressing Goal: Turns in bed with improved pain control throughout the shift Outcome: Progressing Goal: Walks with improved pain control throughout the shift Outcome: Progressing Goal: Performs ADL's with improved pain control throughout shift Outcome: Progressing Goal: Participates in PT with improved pain control throughout the shift Outcome: Progressing Goal: Free from opioid side effects throughout the shift Outcome: Progressing Goal: Free from acute confusion related to pain meds throughout the shift Outcome: Progressing The patient's goals for the shift include The clinical goals for the shift include pt will have improved pain Over the shift, the patient did not make progress toward the following goals. Barriers to progression include . Recommendations to address these barriers include . Plan of Care Manager [employer] Problem: Dressings Lower Extremities Goal: STG - Lower body dressing Description: Lower Body Dressing: Established Date 16-Apr-2023 Lower Body Dressing: Tift Level Goal modified independent Lower Body Dressing: Physical Assist Level Goal set-up Lower Body Dressing: Assistive Device Goal type copyist; as needed with back precautoins Lower Body Dressing: Time Frame for Goal 2 wks Outcome: Progressing Problem: Grooming Goal: STG - Grooming Description: Grooming: Established Date 16-Apr-2023 Grooming: Tift Level Goal independent Grooming: Time Frame for Goal 2 wks Outcome: Progressing Problem: Other Goal: STG Strength Description: Strength: Established Date 16-Apr-2023 Strength Train: Goal WNL Strength Train: Upper Extremities Goal upper extremity(s) Bilateral: Strength Train: Time Frame for Goal 2 wks Outcome: Progressing Problem: Other Goal: STG Energy Conservation Description: Energy Conservation: Established Date 16-Apr-2023 Energy Conservation: Goal Details Pt will demonstrate I with energy conservation techniques to increase functional activity tolerance to x15+ min without rest breaks/while maintaining O2 sats Energy Conservation: Time Frame for Goal 2 wks Outcome: Progressing Problem: Toileting Goal: STG - Toileting Description: Toileting: Established Date 16-Apr-2023 Toileting: Tift Level Goal contact guard Toileting: Physical Assist Level Goal 1-person assist Toileting: Time Frame for Goal 2 wks Outcome: Progressing Problem: Transfers Goal: STG Toilet Transfers Description: Transfer: Established Date 16-Apr-2023 Transfer: Transfer Type Goal toilet Transfer: Tift Level Goal modified independent Transfer: Time Frame for Goal 2 wks Outcome: Progressing Plan of Care Manager [employer] Problem: Mobility Goal: STG Gait Description: Gait: Established Date 16-Apr-2023 Gait: Tift Level Goal modified independent Gait: Assistive Device Goal rolling walker Gait: Distance Goal 150ft Gait: Time Frame for Goal 2 wks 04/19/2023 1025 by Virginia Yu, PT Outcome: Progressing Goal: STG- Assistive Device Use Description: Miscellaneous: Established Date 16-Apr-2023 Miscellaneous: Goal Details Patient will demonstrate good understanding of use of AD during transfers and mobility patient will participate in 30 min PT session without fatigue or increase in pain Miscellaneous: Time Frame for Goal 2 wks 04/19/2023 1025 by Virginia Yu, PT Outcome: Progressing Problem: Transfers Goal: STG Bed Mobility Description: Bed Mobility: Date Established 16-Apr-2023 Bed Mobility: Tift Level Goal independent Bed Mobility: Time Frame for Goal 2 wks 04/19/2023 1025 by Virginia Yu, PT Outcome: Progressing Goal: STG- Transfers Description: Transfer: Established Date 16-Apr-2023 Transfer: Transfer Type Goal [id number]; [id number] Transfer: Tift Level Goal modified independent Transfer: Assistive Device Goal rolling walker Transfer: Time Frame for Goal 2 wks 04/19/2023 1025 by Virginia Yu, PT Outcome: Progressing documented in this encounter [facility] Work Phone: 04-20-2023 Miscellaneous Notes Problem: Pain - Adult Goal: Verbalizes/displays adequate comfort level or baseline comfort level Outcome: Progressing Problem: Safety - Adult Goal: Free from fall injury Outcome: Progressing Problem: Discharge Planning Goal: Discharge to home or other facility with appropriate resources Outcome: Progressing Problem: Chronic Conditions and Co-morbidities Goal: Patient's chronic conditions and co-morbidity symptoms are monitored and maintained or improved Outcome: Progressing Problem: Pain Goal: Takes deep breaths with improved pain control throughout the shift Outcome: Progressing Goal: Turns in bed with improved pain control throughout the shift Outcome: Progressing Goal: Walks with improved pain control throughout the shift Outcome: Progressing Goal: Performs ADL's with improved pain control throughout shift Outcome: Progressing Goal: Participates in PT with improved pain control throughout the shift Outcome: Progressing Goal: Free from opioid side effects throughout the shift Outcome: Progressing Goal: Free from acute confusion related to pain meds throughout the shift Outcome: Progressing The patient's goals for the shift include The clinical goals for the shift include pt will have improved pain Over the shift, the patient did not make progress toward the following goals. Barriers to progression include . Recommendations to address these barriers include . Plan of Care Manager [employer] Problem: Dressings Lower Extremities Goal: STG - Lower body dressing Description: Lower Body Dressing: Established Date 16-Apr-2023 Lower Body Dressing: Tift Level Goal modified independent Lower Body Dressing: Physical Assist Level Goal set-up Lower Body Dressing: Assistive Device Goal type copyist; as needed with back precautoins Lower Body Dressing: Time Frame for Goal 2 wks Outcome: Progressing Problem: Grooming Goal: STG - Grooming Description: Grooming: Established Date 16-Apr-2023 Grooming: Tift Level Goal independent Grooming: Time Frame for Goal 2 wks Outcome: Progressing Problem: Other Goal: STG Strength Description: Strength: Established Date 16-Apr-2023 Strength Train: Goal WNL Strength Train: Upper Extremities Goal upper extremity(s) Bilateral: Strength Train: Time Frame for Goal 2 wks Outcome: Progressing Problem: Other Goal: STG Energy Conservation Description: Energy Conservation: Established Date 16-Apr-2023 Energy Conservation: Goal Details Pt will demonstrate I with energy conservation techniques to increase functional activity tolerance to x15+ min without rest breaks/while maintaining O2 sats Energy Conservation: Time Frame for Goal 2 wks Outcome: Progressing Problem: Toileting Goal: STG - Toileting Description: Toileting: Established Date 16-Apr-2023 Toileting: Tift Level Goal contact guard Toileting: Physical Assist Level Goal 1-person assist Toileting: Time Frame for Goal 2 wks Outcome: Progressing Problem: Transfers Goal: STG Toilet Transfers Description: Transfer: Established Date 16-Apr-2023 Transfer: Transfer Type Goal toilet Transfer: Tift Level Goal modified independent Transfer: Time Frame for Goal 2 wks Outcome: Progressing Plan of Care Manager [employer] Problem: Mobility Goal: STG Gait Description: Gait: Established Date 16-Apr-2023 Gait: Tift Level Goal modified independent Gait: Assistive Device Goal rolling walker Gait: Distance Goal 150ft Gait: Time Frame for Goal 2 wks 04/19/2023 1025 by Virginia Yu, PT Outcome: Progressing Goal: STG- Assistive Device Use Description: Miscellaneous: Established Date 16-Apr-2023 Miscellaneous: Goal Details Patient will demonstrate good understanding of use of AD during transfers and mobility patient will participate in 30 min PT session without fatigue or increase in pain Miscellaneous: Time Frame for Goal 2 wks 04/19/2023 1025 by Virginia Yu, PT Outcome: Progressing Problem: Transfers Goal: STG Bed Mobility Description: Bed Mobility: Date Established 16-Apr-2023 Bed Mobility: Tift Level Goal independent Bed Mobility: Time Frame for Goal 2 wks 04/19/2023 1025 by Virginia Yu, PT Outcome: Progressing Goal: STG- Transfers Description: Transfer: Established Date 16-Apr-2023 Transfer: Transfer Type Goal uie-ig-wkith/vsikb-mw-qfc; coy-gf-tpgee/eswnk-ak-fmt Transfer: Tift Level Goal modified independent Transfer: Assistive Device Goal rolling walker Transfer: Time Frame for Goal 2 wks 04/19/2023 1025 by Virginia Yu, PT Outcome: Progressing documented in this encounter [facility] Work Phone: 04-19-2023 Plan of care note Plan of Care Manager [employer] Intelligence Problem: Dressings Lower Extremities Goal: STG - Lower body dressing Description: Lower Body Dressing: Established Date 16-Apr-2023 Lower Body Dressing: Tift Level Goal modified independent Lower Body Dressing: Physical Assist Level Goal set-up Lower Body Dressing: Assistive Device Goal type copyist; as needed with back precautoins Lower Body Dressing: Time Frame for Goal 2 wks Outcome: Progressing Problem: Grooming Goal: STG - Grooming Description: Grooming: Established Date 16-Apr-2023 Grooming: Tift Level Goal independent Grooming: Time Frame for Goal 2 wks Outcome: Progressing Problem: Other Goal: STG Strength Description: Strength: Established Date 16-Apr-2023 Strength Train: Goal WNL Strength Train: Upper Extremities Goal upper extremity(s) Bilateral: Strength Train: Time Frame for Goal 2 wks Outcome: Progressing Problem: Other Goal: STG Energy Conservation Description: Energy Conservation: Established Date 16-Apr-2023 Energy Conservation: Goal Details Pt will demonstrate I with energy conservation techniques to increase functional activity tolerance to x15+ min without rest breaks/while maintaining O2 sats Energy Conservation: Time Frame for Goal 2 wks Outcome: Progressing Problem: Toileting Goal: STG - Toileting Description: Toileting: Established Date 16-Apr-2023 Toileting: Tift Level Goal contact guard Toileting: Physical Assist Level Goal 1-person assist Toileting: Time Frame for Goal 2 wks Outcome: Progressing Problem: Transfers Goal: STG Toilet Transfers Description: Transfer: Established Date 16-Apr-2023 Transfer: Transfer Type Goal toilet Transfer: Tift Level Goal modified independent Transfer: Time Frame for Goal 2 wks Outcome: Progressing [facility] Work Phone: 04-19-2023 Plan of care note Plan of Care Manager [employer] Problem: Mobility Goal: STG Gait Description: Gait: Established Date 16-Apr-2023 Gait: Tift Level Goal modified independent Gait: Assistive Device Goal rolling walker Gait: Distance Goal 150ft Gait: Time Frame for Goal 2 wks 04/19/2023 1025 by Virginia Yu, PT Outcome: Progressing Goal: STG- Assistive Device Use Description: Miscellaneous: Established Date 16-Apr-2023 Miscellaneous: Goal Details Patient will demonstrate good understanding of use of AD during transfers and mobility patient will participate in 30 min PT session without fatigue or increase in pain Miscellaneous: Time Frame for Goal 2 wks 04/19/2023 1025 by Virginia Yu, PT Outcome: Progressing Problem: Transfers Goal: STG Bed Mobility Description: Bed Mobility: Date Established 16-Apr-2023 Bed Mobility: Tift Level Goal independent Bed Mobility: Time Frame for Goal 2 wks 04/19/2023 1025 by Virginia Yu, PT Outcome: Progressing Goal: STG- Transfers Description: Transfer: Established Date 16-Apr-2023 Transfer: Transfer Type Goal [id number]-nzsrb/wnvtd-fd-hwv; bhc-zx-kzjlj/jylvc-yx-qru Transfer: Tift Level Goal modified independent Transfer: Assistive Device Goal rolling walker Transfer: Time Frame for Goal 2 wks 04/19/2023 1025 by Virginia Yu, PT Outcome: Progressing T [facility] Work Phone: 04-17-2023 Note Send Summary: Discharge Summary Providers: Provider RoleProvider Name PrimaryMalEmmanuel green Pierre ReferringEl Hachem, Pierre Note Recipients: Emmanuel Ricketts MD Discharge Summary: Admission Date: .15-Apr-2023 21:18:00 Discharge Date: 17-Apr-2023 Attending Physician at Discharge: Joaquin Meng Admission Reason: SOB with PE POA Final Discharge Diagnoses: Shortness of breath due to PE Procedures: none Condition at Discharge: Satisfactory Disposition at Discharge: Custodial Facility (SNF) Vital Signs: T PRBPMAPSpO2 [id number]/[id number]% Date/Time04/17 7: 7: 7: 7: 7: 7:12 Range(35.7C - 36.3C ) (69 - 89 ) (12 - 23 ) (113 - 177 )/ (46 - 97 ) (70 - 112 ) (92% - 100% ) As of 16-Apr-2023 07:00:00, patient is on 2 L/min of oxygen via nasal cannula. Date: Weight/Scale Type:Height: 16-Apr-2023 02:2269 kg / pif230.8 cm Physical Exam: Constitutional: awake/alert/oriented x3, not in acute distress, Eyes: PERRL, EOMI, clear sclera ENMT: normal hearing, mucous membranes moist, no pharyngeal erythema or exudates Head/Neck: neck supple, no apparent injury, no JVD, no lymphadenopathy, trachea midline Respiratory/Thorax: patent airways, clear to auscultation bilaterally, no crackles or wheezing or rhonchi Cardiovascular: Regular, rate and rhythm, no murmurs, 2+ equal pulses of the extremities Gastrointestinal: nondistended, positive bowel sounds, soft, non-tender, no rebound tenderness or guarding, no masses palpable, no organomegaly Extremities: no edema Neurological: intact senses, motor, response and reflexes, normal strength, babinski negative Psychological: Appropriate mood and behavior Skin: warm, no rashes Hospital Course: This is a pleasant 78-year-old female with a past medical history of spinal stenosis/lumbar radiculopathy status post recent L3-L5 lumbar surgery, hypertension, osteoarthritis, hypothyroidism who presented to the emergency room from shelter facility for syncope. CT scan of the chest showed small nonocclusive segmental pulmonary embolism in the right lower lobe. Blood work-up showed hyponatremia, hypokalemia, hypomagnesemia. Plan Patient was started on heparin drip then switched to Eliquis restarted back To follow PCP and hematology Patient will follow Ortho/spine for arthritis issues and optimal pain control Muscle relaxants and narcotics as deemed appropriate Watch polypharmacy No DVT on venous duplex ultrasound lower extremity Immobility likely contributing factor also Echocardiogram with slight LVH and impaired diastolic filling pattern EF 60 to 65% Replace electrolytes including hypokalemia, Hypomagnesemia and hypophosphatemia Hydrated and sodium level is stable Pain and symptoms better overall hemodynamically stable, no fever and white count reactive improving time to dc > 35 mins Discharge Information and Continuing Care: Lab Results - Pending: None Radiology Results - Pending: None Discharge Instructions: Activity: activity as tolerated. Nutrition/Diet: low fat Follow Up Appointments: Follow-Up Appointment 01: Physician/Dept/Service: follow PCP, hematology Call to Schedule in: 1 week Follow-Up Appointment 02: Physician/Dept/Service: follow cardiology, ortho/spine as directed on dc Discharge Medications: Home Medication atenolol 25 mg oral tablet - 1 tab(s) orally once a day triamterene-hydrochlorothiazide 75mg-50mg oral tablet - 1 tab(s) orally once a day levothyroxine 112 mcg (0.112 mg) oral tablet - 1 tab(s) orally once a day LORazepam 0.5 mg oral tablet - 1 tab(s) orally once a day (at bedtime) traZODone 50 mg oral tablet - 1 tab(s) orally once a day (at bedtime) Eliquis Starter Pack for Treatment of DVT and PE 5 mg oral tablet - 1 tab(s) orally 2 times a day PRN Medication Robbins 5 mg-325 mg oral tablet - 1 tab(s) orally every 6 hours, As Needed tiZANidine 2 mg oral tablet - 1 tab(s) orally every 8 hours, As Needed traMADol 50 mg oral tablet - 1 tab(s) orally 2 times a day, As Needed DNR Status: Code StatusCode Status order at time of discharge: DNR and No Intubation Electronic Signatures for Addendum Section: Joaquin Meng) (Signed Addendum 18-Apr-2023 12:19) Replacing magnesium for hypomagnesemia and phosphorus for hypophosphatemia Discussed with staff awaiting placement to rehab why insurance authorization Continue anticoagulation as prescribed for thromboembolism treatment Electronic Signatures: Joaquin Meng) (Signed 17-Apr-2023 15:25) Authored: Send Summary, Summary Content, Ongoing Care, DNR Status, Note Completion Last Updated: 18-Apr-2023 12:19 by Joaquin Meng) [facility] 04-17-2023 Hospital course Narrative Send Summary: Discharge Summary Providers: Provider Role Provider Name Primary Emmanuel Ricketts Attending Radhames Morrison Referring Radhames Morrison Note Recipients: Emmanuel Ricketts MD Discharge Summary: Admission Date: .15-Apr-2023 21:18:00 Discharge Date: 17-Apr-2023 Attending Physician at Discharge: Joaquin Meng Admission Reason: SOB with PE POA Final Discharge Diagnoses: Shortness of breath due to PE Procedures: none Condition at Discharge: Satisfactory Disposition at Discharge: Custodial Facility (SNF) Vital Signs: T P R BP MAP SpO2 Value 35.7 74 16 127/51 70 95% Date/Time 04/17 7:12 04/17 7:12 04/17 7:12 04/17 7:12 04/17 7:12 04/17 7:12 Range (35.7C - 36.3C ) (69 - 89 ) (12 - 23 ) (113 - 177 )/ (46 - 97 ) (70 - 112 ) (92% - 100% ) As of 16-Apr-2023 07:00:00, patient is on 2 L/min of oxygen via nasal cannula. Date: Weight/Scale Type: Height: 16-Apr-2023 02:22 69 kg / bed 149.8 cm Physical Exam: Constitutional: awake/alert/oriented x3, not in acute distress, Eyes: PERRL, EOMI, clear sclera ENMT: normal hearing, mucous membranes moist, no pharyngeal erythema or exudates Head/Neck: neck supple, no apparent injury, no JVD, no lymphadenopathy, trachea midline Respiratory/Thorax: patent airways, clear to auscultation bilaterally, no crackles or wheezing or rhonchi Cardiovascular: Regular, rate and rhythm, no murmurs, 2+ equal pulses of the extremities Gastrointestinal: nondistended, positive bowel sounds, soft, non-tender, no rebound tenderness or guarding, no masses palpable, no organomegaly Extremities: no edema Neurological: intact senses, motor, response and reflexes, normal strength, babinski negative Psychological: Appropriate mood and behavior Skin: warm, no rashes Hospital Course: This is a pleasant 78-year-old female with a past medical history of spinal stenosis/lumbar radiculopathy status post recent L3-L5 lumbar surgery, hypertension, osteoarthritis, hypothyroidism who presented to the emergency room from shelter facility for syncope. CT scan of the chest showed small nonocclusive segmental pulmonary embolism in the right lower lobe. Blood work-up showed hyponatremia, hypokalemia, hypomagnesemia. Plan Patient was started on heparin drip then switched to Eliquis restarted back To follow PCP and hematology Patient will follow Ortho/spine for arthritis issues and optimal pain control Muscle relaxants and narcotics as deemed appropriate Watch polypharmacy No DVT on venous duplex ultrasound lower extremity Immobility likely contributing factor also Echocardiogram with slight LVH and impaired diastolic filling pattern EF 60 to 65% Replace electrolytes including hypokalemia, Hypomagnesemia and hypophosphatemia Hydrated and sodium level is stable Pain and symptoms better overall hemodynamically stable, no fever and white count reactive improving time to dc > 35 mins Discharge Information and Continuing Care: Lab Results - Pending: None Radiology Results - Pending: None Discharge Instructions: Activity: activity as tolerated. Nutrition/Diet: low fat Follow Up Appointments: Follow-Up Appointment 01: Physician/Dept/Service: follow PCP, hematology Call to Schedule in: 1 week Follow-Up Appointment 02: Physician/Dept/Service: follow cardiology, ortho/spine as directed on dc Discharge Medications: Home Medication atenolol 25 mg oral tablet - 1 tab(s) orally once a day triamterene-hydrochlorothiazide 75mg-50mg oral tablet - 1 tab(s) orally once a day levothyroxine 112 mcg (0.112 mg) oral tablet - 1 tab(s) orally once a day LORazepam 0.5 mg oral tablet - 1 tab(s) orally once a day (at bedtime) traZODone 50 mg oral tablet - 1 tab(s) orally once a day (at bedtime) Eliquis Starter Pack for Treatment of DVT and PE 5 mg oral tablet - 1 tab(s) orally 2 times a day PRN Medication Robbins 5 mg-325 mg oral tablet - 1 tab(s) orally every 6 hours, As Needed tiZANidine 2 mg oral tablet - 1 tab(s) orally every 8 hours, As Needed traMADol 50 mg oral tablet - 1 tab(s) orally 2 times a day, As Needed DNR Status: Code Status Code Status order at time of discharge: DNR and No Intubation Electronic Signatures for Addendum Section: Joaquin Meng) (Signed Addendum 18-Apr-2023 12:19) Replacing magnesium for hypomagnesemia and phosphorus for hypophosphatemia Discussed with staff awaiting placement to rehab why insurance authorization Continue anticoagulation as prescribed for thromboembolism treatment Electronic Signatures: Joaquin Meng) (Signed 17-Apr-2023 15:25) Authored: Send Summary, Summary Content, Ongoing Care, DNR Status, Note Completion Last Updated: 18-Apr-2023 12:19 by Joaquin Meng) documented in this encounter [facility] Work Phone: 04-17-2023 Hospital course Narrative Send Summary: Discharge Summary Providers: Provider Role Provider Name Primary Emmanuel Ricketts Attending Radhames Morrison Referring Radhames Morrison Note Recipients: Emmanuel Ricketts MD Discharge Summary: Admission Date: .15-Apr-2023 21:18:00 Discharge Date: 17-Apr-2023 Attending Physician at Discharge: Joaquin Meng Admission Reason: SOB with PE POA Final Discharge Diagnoses: Shortness of breath due to PE Procedures: none Condition at Discharge: Satisfactory Disposition at Discharge: Custodial Facility (SNF) Vital Signs: T P R BP MAP SpO2 Value 35.7 74 16 127/51 70 95% Date/Time 04/17 7:12 04/17 7:12 04/17 7:12 04/17 7:12 04/17 7:12 04/17 7:12 Range (35.7C - 36.3C ) (69 - 89 ) (12 - 23 ) (113 - 177 )/ (46 - 97 ) (70 - 112 ) (92% - 100% ) As of 16-Apr-2023 07:00:00, patient is on 2 L/min of oxygen via nasal cannula. Date: Weight/Scale Type: Height: 16-Apr-2023 02:22 69 kg / bed 149.8 cm Physical Exam: Constitutional: awake/alert/oriented x3, not in acute distress, Eyes: PERRL, EOMI, clear sclera ENMT: normal hearing, mucous membranes moist, no pharyngeal erythema or exudates Head/Neck: neck supple, no apparent injury, no JVD, no lymphadenopathy, trachea midline Respiratory/Thorax: patent airways, clear to auscultation bilaterally, no crackles or wheezing or rhonchi Cardiovascular: Regular, rate and rhythm, no murmurs, 2+ equal pulses of the extremities Gastrointestinal: nondistended, positive bowel sounds, soft, non-tender, no rebound tenderness or guarding, no masses palpable, no organomegaly Extremities: no edema Neurological: intact senses, motor, response and reflexes, normal strength, babinski negative Psychological: Appropriate mood and behavior Skin: warm, no rashes Hospital Course: This is a pleasant 78-year-old female with a past medical history of spinal stenosis/lumbar radiculopathy status post recent L3-L5 lumbar surgery, hypertension, osteoarthritis, hypothyroidism who presented to the emergency room from shelter [facility] for syncope. CT scan of the chest showed small nonocclusive segmental pulmonary embolism in the right lower lobe. Blood work-up showed hyponatremia, hypokalemia, hypomagnesemia. Plan Patient was started on heparin drip then switched to Eliquis restarted back To follow PCP and hematology Patient will follow Ortho/spine for arthritis issues and optimal pain control Muscle relaxants and narcotics as deemed appropriate Watch polypharmacy No DVT on venous duplex ultrasound lower extremity Immobility likely contributing factor also Echocardiogram with slight LVH and impaired diastolic filling pattern EF 60 to 65% Replace electrolytes including hypokalemia, Hypomagnesemia and hypophosphatemia Hydrated and sodium level is stable Pain and symptoms better overall hemodynamically stable, no fever and white count reactive improving time to dc > 35 mins Discharge Information and Continuing Care: Lab Results - Pending: None Radiology Results - Pending: None Discharge Instructions: Activity: activity as tolerated. Nutrition/Diet: low fat Follow Up Appointments: Follow-Up Appointment 01: Physician/Dept/Service: follow PCP, hematology Call to Schedule in: 1 week Follow-Up Appointment 02: Physician/Dept/Service: follow cardiology, ortho/spine as directed on dc Discharge Medications: Home Medication atenolol 25 mg oral tablet - 1 tab(s) orally once a day triamterene-hydrochlorothiazide 75mg-50mg oral tablet - 1 tab(s) orally once a day levothyroxine 112 mcg (0.112 mg) oral tablet - 1 tab(s) orally once a day LORazepam 0.5 mg oral tablet - 1 tab(s) orally once a day (at bedtime) traZODone 50 mg oral tablet - 1 tab(s) orally once a day (at bedtime) Eliquis Starter Pack for Treatment of DVT and PE 5 mg oral tablet - 1 tab(s) orally 2 times a day PRN Medication Robbins 5 mg-325 mg oral tablet - 1 tab(s) orally every 6 hours, As Needed tiZANidine 2 mg oral tablet - 1 tab(s) orally every 8 hours, As Needed traMADol 50 mg oral tablet - 1 tab(s) orally 2 times a day, As Needed DNR Status: Code Status Code Status order at time of discharge: DNR and No Intubation Electronic Signatures for Addendum Section: Joaquin Meng) (Signed Addendum 18-Apr-2023 12:19) Replacing magnesium for hypomagnesemia and phosphorus for hypophosphatemia Discussed with staff awaiting placement to rehab why insurance authorization Continue anticoagulation as prescribed for thromboembolism treatment Electronic Signatures: Joaquin Meng) (Signed 17-Apr-2023 15:25) Authored: Send Summary, Summary Content, Ongoing Care, DNR Status, Note Completion Last Updated: 18-Apr-2023 12:19 by Joaquin Meng) documented in this encounter [facility] Work Phone: 04-16-2023 Note History of Present I llness: HPI: CHRISTINE MAYS is a 78 year old Female Who presented to the emergency room for a syncopal episode. On presentation, blood pressure 113/50, heart rate 59, respiratory rate 20, afebrile, saturation oxygen 98% on 2 L. Pertinent findings on blood work-up; WBC 13,700, hemoglobin 9.8, sodium 130, potassium 3.2, magnesium 1.57, albumin 3.2. D-dimer 2533. CT scan of the lumbar spine showed postop changes from L3-L5. CT scan of the chest showed small nonocclusive segmental pulmonary embolism in the right lower lobe. Patient was given in the emergency room load of heparin followed by a heparin drip and IV fluids and then admitted to the medical service for further investigation and management. Upon encounter now, patient reports she is having back pain from her surgery. She said that she had a back surgery around 10 days ago. No Intra-Op complications noted at that time. She was discharged after that to a shelter facility for rehab. Today, and while in a sitting position, she suddenly went unresponsive that lasted for around 10 minutes. EMS was called. It was noted that on arrival she was hypotensive. Patient regained consciousness on her own. Does not recall what happened. Prior to the episode she did not experience any shortness of breath or palpitations or chest pain or blurry vision. No postictal confusion noted. Denies having any acute pain in the legs. Review of Systems: 10 systems were reviewed and were negative except for those noted in the history of present illness. Past medical history: Lumbar radiculopathy status post recent L3-L5 lumbar surgery, osteoarthritis, hypothyroidism, chronic pain, Social history: former smoker, no alcohol abuse Family history: Has been reviewed and there are no findings pertinent to the chief complaint Comorbidities: Comorbidites: Comorbid Conditionshypertension Intolerances: codeine: GI Upset, Nausea/Vomiting Medications Prior to Admission: Outpatient Meds have not been reviewed. Objective: Objective Information: T PRBPMAPSpO2 [id number]/5296% Date/Time04/16 2: 2: 2: 2: 2:20 Range(35.7C - 36.2C ) (59 - 80 ) (12 - 20 ) (113 - 173 )/ (50 - 97 ) (95% - 98% ) As of 16-Apr-2023 02:20:00, patient is on 2 L/min of oxygen via nasal cannula. Pain reported at 04/16 2:20: 5 = Moderate Physical Exam by System: Constitutional: awake/alert/oriented x3, not in acute distress, Eyes: PERRL, EOMI, clear sclera ENMT: normal hearing, mucous membranes moist, no pharyngeal erythema or exudates Head/Neck: neck supple, no apparent injury, no JVD, no lymphadenopathy, trachea midline Respiratory/Thorax: patent airways, clear to auscultation bilaterally, no crackles or wheezing or rhonchi Cardiovascular: Regular, rate and rhythm, no murmurs, 2+ equal pulses of the extremities Gastrointestinal: nondistended, positive bowel sounds, soft, non-tender, no rebound tenderness or guarding, no masses palpable, no organomegaly Extremities: no edema Neurological: intact senses, motor, response and reflexes, normal strength, babinski negative Psychological: Appropriate mood and behavior Skin: warm, no rashes Recent Lab Results: Results: CBC: 04/15/2023 21:47 \\ Hgb / \\ 9.8 L / WBC Plt 13.7 H 449 / Hct \\ / 29.4 L \\ RBC: 2.96 L MCV: 99 Neutrophil %: 60.5 CMP: 04/15/2023 21:47 NA+ Cl- BUN / 130 L 94 L 24 H / Glucose 103 H K+ HCO3- Creat \\ 3.2 L 29 0.73 \\ \\ T Bili / \\ 0.2 / AST x ---- x ALT 15 x ---- x 14 / Alk P \\ / 57 \\ Calcium : 8.8 Anion Gap : 10 Albumin : 3.2 L T Protein : 5.0 L Coagulation: 04/15/2023 21:47 PT / 12.7 / -------< INR < 1.1 PTT\\ 27 \\ Radiology Results: Results: Impression: Postoperative changes from L3 through L5 as described without distinct evidence for hardware complication. Soft tissue edema is demonstrated within the posterior paraspinal soft tissues with small amount of fluid in the subcutaneous soft tissues, likely postoperative seroma. Postoperative bed is suboptimally evaluated due to extensive metallic streak artifact. No distinct enhancing lesion or drainable abscess identified. Signed by Sameera Bello MD CT L Spine with Contrast [Apr 16 2023 12:25AM] Impression: 1. Positive exam for small non-occlusive segmental pulmonary embolism to the right lower lobe. 2. The main pulmonary arteries remain patent and normal caliber; no appreciable right heart strain. 3. Incidental marked dilatation common bile duct following previous cholecystectomy: advise further evaluation when clinically appropriate. 4. Remainder as above. 5. Urgent findings discussed with and acknowledged by Dr. Erwin Armas at 12:02 AM Eastern on 04/16/2023. Imani (more content not included)... [facility] 04-16-2023 History and physical note History of Present Illness: HPI: CHRISTINE MAYS is a 78 year old Female Who presented to the emergency room for a syncopal episode. On presentation, blood pressure 113/50, heart rate 59, respiratory rate 20, afebrile, saturation oxygen 98% on 2 L. Pertinent findings on blood work-up; WBC 13,700, hemoglobin 9.8, sodium 130, potassium 3.2, magnesium 1.57, albumin 3.2. D-dimer 2533. CT scan of the lumbar spine showed postop changes from L3-L5. CT scan of the chest showed small nonocclusive segmental pulmonary embolism in the right lower lobe. Patient was given in the emergency room load of heparin followed by a heparin drip and IV fluids and then admitted to the medical service for further investigation and management. Upon encounter now, patient reports she is having back pain from her surgery. She said that she had a back surgery around 10 days ago. No Intra-Op complications noted at that time. She was discharged after that to a shelter facility for rehab. Today, and while in a sitting position, she suddenly went unresponsive that lasted for around 10 minutes. EMS was called. It was noted that on arrival she was hypotensive. Patient regained consciousness on her own. Does not recall what happened. Prior to the episode she did not experience any shortness of breath or palpitations or chest pain or blurry vision. No postictal confusion noted. Denies having any acute pain in the legs. Review of Systems: 10 systems were reviewed and were negative except for those noted in the history of present illness. Past medical history: Lumbar radiculopathy status post recent L3-L5 lumbar surgery, osteoarthritis, hypothyroidism, chronic pain, Social history: former smoker, no alcohol abuse Family history: Has been reviewed and there are no findings pertinent to the chief complaint Comorbidities: Comorbidites: Comorbid Conditions hypertension Intolerances: codeine : GI Upset, Nausea/Vomiting Medications Prior to Admission: Outpatient Meds have not been reviewed. Objective: Objective Information: T P R BP MAP SpO2 Value 36.2 71 12 154/52 96% Date/Time 04/16 2:20 04/16 2:20 04/16 2:20 04/16 2:20 04/16 2:20 Range (35.7C - 36.2C ) (59 - 80 ) (12 - 20 ) (113 - 173 )/ (50 - 97 ) (95% - 98% ) As of 16-Apr-2023 02:20:00, patient is on 2 L/min of oxygen via nasal cannula. Pain reported at 04/16 2:20: 5 = Moderate Physical Exam by System: Constitutional: awake/alert/oriented x3, not in acute distress, Eyes: PERRL, EOMI, clear sclera ENMT: normal hearing, mucous membranes moist, no pharyngeal erythema or exudates Head/Neck: neck supple, no apparent injury, no JVD, no lymphadenopathy, trachea midline Respiratory/Thorax: patent airways, clear to auscultation bilaterally, no crackles or wheezing or rhonchi Cardiovascular: Regular, rate and rhythm, no murmurs, 2+ equal pulses of the extremities Gastrointestinal: nondistended, positive bowel sounds, soft, non-tender, no rebound tenderness or guarding, no masses palpable, no organomegaly Extremities: no edema Neurological: intact senses, motor, response and reflexes, normal strength, babinski negative Psychological: Appropriate mood and behavior Skin: warm, no rashes Recent Lab Results: Results: CBC: 04/15/2023 21:47 \\ Hgb / \\ 9.8 L / WBC Plt 13.7 H 449 / Hct \\ / 29.4 L \\ RBC: 2.96 L MCV: 99 Neutrophil %: 60.5 CMP: 04/15/2023 21:47 NA+ Cl- BUN / 130 L 94 L 24 H / Glucose 103 H K+ HCO3- Creat \\ 3.2 L 29 0.73 \\ \\ T Bili / \\ 0.2 / AST x ---- x ALT 15 x ---- x 14 / Alk P \\ / 57 \\ Calcium : 8.8 Anion Gap : 10 Albumin : 3.2 L T Protein : 5.0 L Coagulation: 04/15/2023 21:47 PT / 12.7 / -------< INR < 1.1 PTT\\ 27 \\ Radiology Results: Results: Impression: Postoperative changes from L3 through L5 as described without distinct evidence for hardware complication. Soft tissue edema is demonstrated within the posterior paraspinal soft tissues with small amount of fluid in the subcutaneous soft tissues, likely postoperative seroma. Postoperative bed is suboptimally evaluated due to extensive metallic streak artifact. No distinct enhancing lesion or drainable abscess identified. Signed by Sameera Bello MD CT L Spine with Contrast [Apr 16 2023 12:25AM] Impression: 1. Positive exam for small non-occlusive segmental pulmonary embolism to the right lower lobe. 2. The main pulmonary arteries remain patent and normal caliber; no appreciable right heart strain. 3. Incidental marked dilatation common bile duct following previous cholecystectomy: advise further evaluation when clinically appropriate. 4. Remainder as above. 5. Urgent findings discussed with and acknowledged by Dr. Erwin Armas at 12:02 AM Eastern on 04/16/2023. Signed by Evan Vargas MD CT Angio Chest for PE [Apr 16 2023 12:06AM] Impression: Enlarged cardiac silhouette. No consolidation or edema. Xray Chest 1 View [Apr 15 2023 10:48PM] Assessment and Plan: Assessment: This is a pleasant 78-year-old female with a past medical history of spinal stenosis/lumbar radiculopathy status post recent L3-L5 lumbar surgery, hypertension, osteoarthritis, hypothyroidism who presented to the emergency room from shelter facility for syncope. CT scan of the chest showed small nonocclusive segmental pulmonary embolism in the right lower lobe. Blood work-up showed hyponatremia, hypokalemia, hypomagnesemia. Admit patient to the inpatient medical service with telemetry and vital signs monitoring. Continue with the current heparin drip. Order lower extremities duplex venous. Order echocardiogram. Give IV magnesium and oral potassium. Would hold on giving IV fluids at the time being. Repeat BMP tomorrow. Hold triamterene and hydrochlorothiazide given the hyponatremia and hypokalemia. Continue the rest of home medications SCDs for DVT prophylaxis in addition to the heparin drip Full code (This note was generated with voice recognition software and may contain errors including spelling, grammar, syntax and misrecognition of what was dictated, that are not fully corrected) Electronic Signatures: Radhames Morrison) (Signed 16-Apr-2023 03:50) Authored: History of Present Illness, Comorbidities, Allergies, Medications Prior to Admission, Objective, Assessment and Plan, Note Completion Last Updated: 16-Apr-2023 03:50 by Radhames Morrison) [facility] Work Phone: 04-16-2023 History and physical note History of Present Illness: HPI: CHRISTINE MAYS is a 78 year old Female Who presented to the emergency room for a syncopal episode. On presentation, blood pressure 113/50, heart rate 59, respiratory rate 20, afebrile, saturation oxygen 98% on 2 L. Pertinent findings on blood work-up; WBC 13,700, hemoglobin 9.8, sodium 130, potassium 3.2, magnesium 1.57, albumin 3.2. D-dimer 2533. CT scan of the lumbar spine showed postop changes from L3-L5. CT scan of the chest showed small nonocclusive segmental pulmonary embolism in the right lower lobe. Patient was given in the emergency room load of heparin followed by a heparin drip and IV fluids and then admitted to the medical service for further investigation and management. Upon encounter now, patient reports she is having back pain from her surgery. She said that she had a back surgery around 10 days ago. No Intra-Op complications noted at that time. She was discharged after that to a shelter facility for rehab. Today, and while in a sitting position, she suddenly went unresponsive that lasted for around 10 minutes. EMS was called. It was noted that on arrival she was hypotensive. Patient regained consciousness on her own. Does not recall what happened. Prior to the episode she did not experience any shortness of breath or palpitations or chest pain or blurry vision. No postictal confusion noted. Denies having any acute pain in the legs. Review of Systems: 10 systems were reviewed and were negative except for those noted in the history of present illness. Past medical history: Lumbar radiculopathy status post recent L3-L5 lumbar surgery, osteoarthritis, hypothyroidism, chronic pain, Social history: former smoker, no alcohol abuse Family history: Has been reviewed and there are no findings pertinent to the chief complaint Comorbidities: Comorbidites: Comorbid Conditions hypertension Intolerances: codeine : GI Upset, Nausea/Vomiting Medications Prior to Admission: Outpatient Meds have not been reviewed. Objective: Objective Information: T P R BP MAP SpO2 Value 36.2 71 12 154/52 96% Date/Time 04/16 2:20 04/16 2:20 04/16 2:20 04/16 2:20 04/16 2:20 Range (35.7C - 36.2C ) (59 - 80 ) (12 - 20 ) (113 - 173 )/ (50 - 97 ) (95% - 98% ) As of 16-Apr-2023 02:20:00, patient is on 2 L/min of oxygen via nasal cannula. Pain reported at 04/16 2:20: 5 = Moderate Physical Exam by System: Constitutional: awake/alert/oriented x3, not in acute distress, Eyes: PERRL, EOMI, clear sclera ENMT: normal hearing, mucous membranes moist, no pharyngeal erythema or exudates Head/Neck: neck supple, no apparent injury, no JVD, no lymphadenopathy, trachea midline Respiratory/Thorax: patent airways, clear to auscultation bilaterally, no crackles or wheezing or rhonchi Cardiovascular: Regular, rate and rhythm, no murmurs, 2+ equal pulses of the extremities Gastrointestinal: nondistended, positive bowel sounds, soft, non-tender, no rebound tenderness or guarding, no masses palpable, no organomegaly Extremities: no edema Neurological: intact senses, motor, response and reflexes, normal strength, babinski negative Psychological: Appropriate mood and behavior Skin: warm, no rashes Recent Lab Results: Results: CBC: 04/15/2023 21:47 \\ Hgb / \\ 9.8 L / WBC Plt 13.7 H 449 / Hct \\ / 29.4 L \\ RBC: 2.96 L MCV: 99 Neutrophil %: 60.5 CMP: 04/15/2023 21:47 NA+ Cl- BUN / 130 L 94 L 24 H / Glucose 103 H K+ HCO3- Creat \\ 3.2 L 29 0.73 \\ \\ T Bili / \\ 0.2 / AST x ---- x ALT 15 x ---- x 14 / Alk P \\ / 57 \\ Calcium : 8.8 Anion Gap : 10 Albumin : 3.2 L T Protein : 5.0 L Coagulation: 04/15/2023 21:47 PT / 12.7 / -------< INR < 1.1 PTT\\ 27 \\ Radiology Results: Results: Impression: Postoperative changes from L3 through L5 as described without distinct evidence for hardware complication. Soft tissue edema is demonstrated within the posterior paraspinal soft tissues with small amount of fluid in the subcutaneous soft tissues, likely postoperative seroma. Postoperative bed is suboptimally evaluated due to extensive metallic streak artifact. No distinct enhancing lesion or drainable abscess identified. Signed by Sameera Bello MD CT L Spine with Contrast [Apr 16 2023 12:25AM] Impression: 1. Positive exam for small non-occlusive segmental pulmonary embolism to the right lower lobe. 2. The main pulmonary arteries remain patent and normal caliber; no appreciable right heart strain. 3. Incidental marked dilatation common bile duct following previous cholecystectomy: advise further evaluation when clinically appropriate. 4. Remainder as above. 5. Urgent findings discussed with and acknowledged by Dr. Erwin Armas at 12:02 AM Eastern on 04/16/2023. Signed by Eavn Vargas MD CT Angio Chest for PE [Apr 16 2023 12:06AM] Impression: Enlarged cardiac silhouette. No consolidation or edema. Xray Chest 1 View [Apr 15 2023 10:48PM] Assessment and Plan: Assessment: This is a pleasant 78-year-old female with a past medical history of spinal stenosis/lumbar radiculopathy status post recent L3-L5 lumbar surgery, hypertension, osteoarthritis, hypothyroidism who presented to the emergency room from shelter facility for syncope. CT scan of the chest showed small nonocclusive segmental pulmonary embolism in the right lower lobe. Blood work-up showed hyponatremia, hypokalemia, hypomagnesemia. Admit patient to the inpatient medical service with telemetry and vital signs monitoring. Continue with the current heparin drip. Order lower extremities duplex venous. Order echocardiogram. Give IV magnesium and oral potassium. Would hold on giving IV fluids at the time being. Repeat BMP tomorrow. Hold triamterene and hydrochlorothiazide given the hyponatremia and hypokalemia. Continue the rest of home medications SCDs for DVT prophylaxis in addition to the heparin drip Full code (This note was generated with voice recognition software and may contain errors including spelling, grammar, syntax and misrecognition of what was dictated, that are not fully corrected) Electronic Signatures: Radhames Morrison) (Signed 16-Apr-2023 03:50) Authored: History of Present Illness, Comorbidities, Allergies, Medications Prior to Admission, Objective, Assessment and Plan, Note Completion Last Updated: 16-Apr-2023 03:50 by Radhames Morrison) documented in this encounter [facility] Work Phone: 04-16-2023 History and physical note History of Present Illness: HPI: CHRISTINE MAYS is a 78 year old Female Who presented to the emergency room for a syncopal episode. On presentation, blood pressure 113/50, heart rate 59, respiratory rate 20, afebrile, saturation oxygen 98% on 2 L. Pertinent findings on blood work-up; WBC 13,700, hemoglobin 9.8, sodium 130, potassium 3.2, magnesium 1.57, albumin 3.2. D-dimer 2533. CT scan of the lumbar spine showed postop changes from L3-L5. CT scan of the chest showed small nonocclusive segmental pulmonary embolism in the right lower lobe. Patient was given in the emergency room load of heparin followed by a heparin drip and IV fluids and then admitted to the medical service for further investigation and management. Upon encounter now, patient reports she is having back pain from her surgery. She said that she had a back surgery around 10 days ago. No Intra-Op complications noted at that time. She was discharged after that to a shelter facility for rehab. Today, and while in a sitting position, she suddenly went unresponsive that lasted for around 10 minutes. EMS was called. It was noted that on arrival she was hypotensive. Patient regained consciousness on her own. Does not recall what happened. Prior to the episode she did not experience any shortness of breath or palpitations or chest pain or blurry vision. No postictal confusion noted. Denies having any acute pain in the legs. Review of Systems: 10 systems were reviewed and were negative except for those noted in the history of present illness. Past medical history: Lumbar radiculopathy status post recent L3-L5 lumbar surgery, osteoarthritis, hypothyroidism, chronic pain, Social history: former smoker, no alcohol abuse Family history: Has been reviewed and there are no findings pertinent to the chief complaint Comorbidities: Comorbidites: Comorbid Conditions hypertension Intolerances: codeine : GI Upset, Nausea/Vomiting Medications Prior to Admission: Outpatient Meds have not been reviewed. Objective: Objective Information: T P R BP MAP SpO2 Value 36.2 71 12 154/52 96% Date/Time 04/16 2:20 04/16 2:20 04/16 2:20 04/16 2:20 04/16 2:20 Range (35.7C - 36.2C ) (59 - 80 ) (12 - 20 ) (113 - 173 )/ (50 - 97 ) (95% - 98% ) As of 16-Apr-2023 02:20:00, patient is on 2 L/min of oxygen via nasal cannula. Pain reported at 04/16 2:20: 5 = Moderate Physical Exam by System: Constitutional: awake/alert/oriented x3, not in acute distress, Eyes: PERRL, EOMI, clear sclera ENMT: normal hearing, mucous membranes moist, no pharyngeal erythema or exudates Head/Neck: neck supple, no apparent injury, no JVD, no lymphadenopathy, trachea midline Respiratory/Thorax: patent airways, clear to auscultation bilaterally, no crackles or wheezing or rhonchi Cardiovascular: Regular, rate and rhythm, no murmurs, 2+ equal pulses of the extremities Gastrointestinal: nondistended, positive bowel sounds, soft, non-tender, no rebound tenderness or guarding, no masses palpable, no organomegaly Extremities: no edema Neurological: intact senses, motor, response and reflexes, normal strength, babinski negative Psychological: Appropriate mood and behavior Skin: warm, no rashes Recent Lab Results: Results: CBC: 04/15/2023 21:47 \\ Hgb / \\ 9.8 L / WBC Plt 13.7 H 449 / Hct \\ / 29.4 L \\ RBC: 2.96 L MCV: 99 Neutrophil %: 60.5 CMP: 04/15/2023 21:47 NA+ Cl- BUN / 130 L 94 L 24 H / Glucose 103 H K+ HCO3- Creat \\ 3.2 L 29 0.73 \\ \\ T Bili / \\ 0.2 / AST x ---- x ALT 15 x ---- x 14 / Alk P \\ / 57 \\ Calcium : 8.8 Anion Gap : 10 Albumin : 3.2 L T Protein : 5.0 L Coagulation: 04/15/2023 21:47 PT / 12.7 / -------< INR < 1.1 PTT\\ 27 \\ Radiology Results: Results: Impression: Postoperative changes from L3 through L5 as described without distinct evidence for hardware complication. Soft tissue edema is demonstrated within the posterior paraspinal soft tissues with small amount of fluid in the subcutaneous soft tissues, likely postoperative seroma. Postoperative bed is suboptimally evaluated due to extensive metallic streak artifact. No distinct enhancing lesion or drainable abscess identified. Signed by Sameera Bello MD CT L Spine with Contrast [Apr 16 2023 12:25AM] Impression: 1. Positive exam for small non-occlusive segmental pulmonary embolism to the right lower lobe. 2. The main pulmonary arteries remain patent and normal caliber; no appreciable right heart strain. 3. Incidental marked dilatation common bile duct following previous cholecystectomy: advise further evaluation when clinically appropriate. 4. Remainder as above. 5. Urgent findings discussed with and acknowledged by Dr. Erwin Armas at 12:02 AM Eastern on 04/16/2023. Signed by Evan Vargas MD CT Angio Chest for PE [Apr 16 2023 12:06AM] Impression: Enlarged cardiac silhouette. No consolidation or edema. Xray Chest 1 View [Apr 15 2023 10:48PM] Assessment and Plan: Assessment: This is a pleasant 78-year-old female with a past medical history of spinal stenosis/lumbar radiculopathy status post recent L3-L5 lumbar surgery, hypertension, osteoarthritis, hypothyroidism who presented to the emergency room from shelter facility for syncope. CT scan of the chest showed small nonocclusive segmental pulmonary embolism in the right lower lobe. Blood work-up showed hyponatremia, hypokalemia, hypomagnesemia. Admit patient to the inpatient medical service with telemetry and vital signs monitoring. Continue with the current heparin drip. Order lower extremities duplex venous. Order echocardiogram. Give IV magnesium and oral potassium. Would hold on giving IV fluids at the time being. Repeat BMP tomorrow. Hold triamterene and hydrochlorothiazide given the hyponatremia and hypokalemia. Continue the rest of home medications SCDs for DVT prophylaxis in addition to the heparin drip Full code (This note was generated with voice recognition software and may contain errors including spelling, grammar, syntax and misrecognition of what was dictated, that are not fully corrected) Electronic Signatures: Radhames Morrison) (Signed 16-Apr-2023 03:50) Authored: History of Present Illness, Comorbidities, Allergies, Medications Prior to Admission, Objective, Assessment and Plan, Note Completion Last Updated: 16-Apr-2023 03:50 by Radhames Morrison) documented in this encounter [facility] Work Phone: 04-05-2023 History of Present illness Narrative Report given to WILLIE Schumacher at facility. All questions answered. Patient met all goals to go to facility. Discharge packet given to family to take to facility by RN. Attempted to call report to SNF with no answer. Voicemail with callback number left. Patient aware of when they last had pain meds and when they can have them again next. Patient escorted to vehicle via wheelchair by [facility]. PROGRESS NOTE: LUMBAR LAMINECTOMY&FUSION PROCEDURE: Procedure(s): L3-L5 Laminectomy, posterior spinal fusion with intrumentation, posterior lumbar interbody fusion POSTOP DAY: 2 Days Post-Op SUBJECTIVE PAIN SPASMS: MODERATE PAIN CONTROL: IV AND ORAL PAIN MEDS OBJECTIVE DRAINAGE: MINIMAL WOUND SITE SWELLING: MINIMAL CALF/THIGH TENDERNESS: NONE NEUROVASCULAR: STABLE. MOVING EXTREMITIES X4. GOOD STRENGTH LEGS B/L. NO SOB NO CP. PT DRESSED AND STATES READY FOR DC MODALITIES/TREATMENTS: INCREASE ACTIVITY AND ADVANCE DIET TOLERATED PLAN: CONTINUE CURRENT PLAN NOTES: CONTINUE NEURO-CIRC CHECKS DISCHARGE PLAN: PLAN TO DISCHARGE TODAY IF ALL GOALS MET, AND IF OK WITH [facility] Physical Therapy In to see pt for second PT session. Pt received in BR with [facility] about to get a shower and prepare for D/C. Will re-attempt as able. CM faxed the D/C instructions, negative covid test, copy of pain rx, HENS and copy of the AVS to the SNF at [phone] with a fax confirmation received. Discharge packet will be completed and placed at the nurses station. Floor nurse will call report to the facility JAS spoke to Pao the admissions liason at [facility] and updated her of the negative covid test as well as family planning to arrive around 1415 to provide transportation. Pao does request that copy of the negative covid test, AVS and d/c pain rx be faxed to the facility prior to discharge. [facility] Physical Therapy Treatment PT Discharge Recommendations: half-way facility placement Distance Ambulated (ft): 30 Device: Rolling walker Orthopedic Precautions: Back Precautions Fall prevention education provided including use of call light in hospital, use of appropriate assistive device, safe mobility techniques, and safety measures at home. Continue PT as per POC. Subjective/Objective/Assessment/Isabel n In to see pt with RN permission. Pt received supine in bed with LSO sitting around her midsection instead of her lower back. Pt agreeable to PT services. See below for complete mobility performance details with ambulation limited by pt reports of severe B posterior LE radicular pain which she states was present prior to surgery. Pt left seated in bedside chair with cooling pad inside of LSO, tray table in place, call light/phone within reach and RN aware. 04/05/23 1020 General Family/Caregiver Present No PT Time Calculation PT Start Time 1020 PT Stop Time 1039 PT Time Calculation (min) 19 min Precautions Medical Precautions Fall Risk Safety Interventions Call alford within reach;Gait belt Orthopedic Precautions Back Precautions Orthoses Applied LSO (at all times) Pain Assessment Pain Assessment 0-10 Pain Score 8 Pain Type Surgical pain Pain Location Back Pain Orientation Lower Pain Radiating Towards B posterior legs that radiates down to just above the knees Pain Descriptors Shooting;Spasm Pain Interventions Repositioned;RN notified (Comment);Ambulation/increased activity Cognition Arousal/Alertness Appropriate responses to stimuli Orientation Level Oriented X4 Following Commands Follows all commands and directions without difficulty Bed Mobility Lying to Sitting Assistance Contact guard Bed Mobility Comments via log roll technique Transfers Sit to Stand Assistance Contact guard Toilet Transfer Assistance Contact guard Transfer Comments VC's for proper hand placement with FWW Ambulation Walking Assistance Contact guard Device Rolling walker Distance Ambulated (ft) 30 Comments Pt limited by reports of B LE radicular pain Gait Training Gait Training Time Entry 19 Gait Training Activity 1 Gait training with FWW Therapeutic Activity Therapeutic Activity 1 Review of B LE VRE and back precautions Therapeutic Activity 2 STS and toilet transfer training Therapeutic Activity 3 Readjustment of LSO for optimal fit Therapeutic Activity 4 Bed mobility via log roll PT Assessment Medical Staff Made Aware Yes Comments WILLIE Farias Goals/Education Encounter Problems Encounter Problems (Active) Template: Physical Therapy Problem: PT Short Term Goals Dates: Start: 04/03/23 Goal: Pt will perform bed mobility with CGA. Dates: Start: 04/03/23 Expected End: 04/04/23 Outcomes Date/Time User Outcome 04/05/23 1059 Lena Davisfe, PT Progressing Goal: Pt will transfer with SBA. Dates: Start: 04/03/23 Expected End: 04/04/23 Outcomes Date/Time User Outcome 04/05/23 1059 Lena Ian, PT Progressing Goal: Pt will ambulate 150 ft. with wheeled walker and SBA Dates: Start: 04/03/23 Expected End: 04/04/23 Outcomes Date/Time User Outcome 04/05/23 1059 Lena Ian, PT Progressing Goal: Caregiver/patient will demonstrate understanding of surgical and safety precautions during mobility tasks Dates: Start: 04/03/23 Expected End: 04/04/23 Outcomes Date/Time User Outcome 04/05/23 1059 Lena Ian, PT Progressing Goal: Pt will ascend/descend stairs with CGA/LRAD Dates: Start: 04/04/23 Expected End: 04/05/23 Outcomes Date/Time User Outcome 04/05/23 1059 Lena Ian, PT Progressing Encounter Problems (Resolved) There are no resolved problems. Education Documentation Precautions, taught by Lena Sosa PT at 04/05/2023 10:59 AM. Learner: Patient Readiness: Acceptance Method: Explanation Response: Verbalizes Understanding Body Mechanics, taught by Lena Sosa PT at 04/05/2023 10:59 AM. Learner: Patient Readiness: Acceptance Method: Explanation Response: Verbalizes Understanding Mobility Training, taught by Lena Sosa PT at 04/05/2023 10:59 AM. Learner: Patient Readiness: Acceptance Method: Explanation Response: Verbalizes Understanding Explain call button use, taught by Lena Sosa PT at 04/05/2023 10:59 AM. Learner: Patient Readiness: Acceptance Method: Explanation Response: Verbalizes Understanding Teach fall prevention measures, taught by Lena Sosa PT at 04/05/2023 10:59 AM. Learner: Patient Readiness: Acceptance Method: Explanation Response: Verbalizes Understanding Education Comments No comments found. CM met with the patient and she provided an update her granddaughter will plan to provide transportation to the SNF. Repeat Covid test completed this am and is negative. CM will continue to follow. Anticipate discharge to the SNF later today if cleared per the surgeon and medicine service [facility] - PROGRESS NOTE Patient Name : Christine Mays Patient : 1945 Patient Admit Date : 04/03/2023 Admission Diagnosis : Postoperative Medical Comanagement Provider Name : Yasir Goss MD Date Of Service : 04/05/23 IMPRESSION AND PLAN : Scoliosis, lumbar region; Spinal stenosis, lumbar region: Status/post L3-5 decompression posterior spinal fusion with instrumentation, repair durotomy by Dr. Hanna on 04/03/23.Defer primary management as well as management of NSAIDS, anticoagulants, and antibiotics to the primary surgical service per protocol. A medical consult has been ordered by the surgeon/surgical team for co-management of the patient's chronic medical conditions. These chronic medical conditions have been reviewed and are summarized below. Medical co-management: I have seen the patient personally today and have reviewed available labs and imaging results, as documented below in the RESULTS section. I have reviewed available progress notes from the surgical staff, physical therapy, and nursing. Prescription drug management has been provided, as outlined in the impression and plan. Prophylaxis For Prevention of Deep Vein Thrombosis ( DVT ) Prophylaxis should be based on current ACCP Guidelines. Pharmacological prophylaxis will be deferred to the primary surgical service per protocol. Patient should be encouraged regarding venous return exercises and ambulation. Obstructive Sleep Apnea (G47.33): Patient denied respiratory symptoms on rounds 04/05. Patient remains at elevated risk for postoperative respiratory complications including hypoxemia and hypoventilation. Will continue monitoring on the [facility] ABBI protocol. Respiratory Therapy to continue to encourage incentive spirometer use and to wean oxygen as tolerated. Hypokalemia (E87.6): Potassium level low at 3.2 on 04/05. Patient does take Triamterene/HCTZ. Supplementation ordered. Encouraged solid oral intake. Hypertension (I10): Chronic condition, present on admission. Last reading noted at 135/56 on 04/05. The patient remains at risk for blood pressure fluctuations following surgery due to blood loss, fluid loss, pain, anxiety, and medications such as opioid pain medications. The patient's home prescription antihypertensive medications have been reordered with hold parameters. As needed clonidine has been added. Home medications include atenolol, triamterene/hydrochlorothiazide. Anemia: Surgical EBL = 700 mLs. Hgb level 9.5 on 04/05. The patient currently does not have clinical indications for transfusion, including hypotension, tachycardia, or orthostatic symptoms, but will require ongoing management while hospitalized including lab monitoring, IVFs, pulse oximetry, and supplemental oxygen for RASaO2 less than 90% as indicated. Leukocytosis (D72.829): WBC count elevated at 10.3 on 04/05. Patient does not currently have localizing signs or symptoms of infection. Defer wound exams to the primary surgical service. The patient did receive steroids perioperatively. Hyponatremia (E87.1): Chronic condition, present on admission. Sodium level low preoperatively at 128. Patient previously noted to be on a thiazide-containing diuretic for blood pressure control. Sodium level improved at 135 on 04/05.. Remains asymptomatic, without neurological changes. Will continue to follow clinically and with serial labs. Hypothyroidism (E03.9) Chronic preexisting condition and present on admission. Controlled on prescription thyroid hormone replacement therapy which has been reordered. Continue on levothyroxine Anxiety - Chronic condition (F41.9) and present on admission controlled. Continue on home prescription medications which have been reordered. Insomnia (F51.01) Chronic condition & controlled with home prescription medication. Medication to previously been reviewed. Continue with as needed sleeping agent at bedtime and will continue to monitor while hospitalized. Trazodone at bedtime Current BMI - Body mass index is 28.19 kg/m . Advanced Age: This patient is at elevated risk for the development of perioperative confusion / delirium Cautious use of postop narcotics and recommend avoidance of problematic medications per Beers criteria.. Has done well since surgery without any significant confusion reported SUBJECTIVE / REVIEW OF SYSTEMS The patient was seen in their room on the inpatient unit. They were resting quietly prior to visit and appeared comfortable during the visit. No new complaints this morning. Pain Control: Mild surgical site pain, adequately controlled Cardiovascular: Denied chest pain or chest pressure Respiratory: Denies dyspnea or cough Gastrointestinal: Denied abdominal pain, denied nausea or vomiting, reports passing flatus since surgery Genitourinary: Denies dysuria, urine output as noted Neurological: Denied acute neurological deficits or acute changes in strength or sensation Musculoskeletal: Defer to primary service VITALS : Visit Vitals BP 135/56 (BP Location: Left arm, Patient Position: Lying) Pulse 94 Temp 36.3 C (97.3 F) (Temporal) Resp 14 Ht 1.499 m (59") Wt 63.3 kg (139 lb 8.8 oz) SpO2 95% BMI 28.19 kg/m Smoking Status Former BSA 1.58 m No intake/output data recorded. Body surface area is 1.58 meters squared. Body mass index is 28.19 kg/m . PHYSICAL EXAM : General: Responds appropriately; no apparent distress Cardiovascular: Regular rate and rhythm; no murmur, rub, or gallop Respiratory: Clear to auscultation; normal respiratory effort Abdomen: Soft, non-distended; non-tender; bowel sounds normoactive Skin: No rashes Neurological: Alert and oriented x 3; appropriate mood and affect; follows commands/requests appropriately Musculoskeletal: Defer to primary service RESULTS : LABS CBC Lab Results Component Value Date WBC 10.3 (H) 04/05/2023 HGB 9.5 (L) 04/05/2023 HCT 28.2 (L) 04/05/2023 MCV 98.6 (H) 04/05/2023 PLT 184 04/05/2023 .RESULAST[MCH:3,MCV:*,HCT} CMP Lab Results Component Value Date NA 135 (L) 04/05/2023 K 3.2 (L) 04/05/2023 CL 102 04/05/2023 CO2 27 04/05/2023 GLUCOSE 169 (H) 04/05/2023 BUN 8 04/05/2023 CREATININE 0.43 (L) 04/05/2023 CALCIUM 8.6 (L) 04/05/2023 EGFR 98 04/05/2023 Problem: Pain - Adult Goal: Verbalizes/displays adequate comfort level or baseline comfort level Outcome: Progressing Problem: Infection - Adult Goal: Absence of infection during hospitalization Outcome: Progressing Goal: Absence of fever/infection during anticipated neutropenic period Outcome: Progressing Problem: Safety Adult - Fall Goal: Free from fall injury Outcome: Progressing Problem: Discharge Planning Goal: Discharge to home or other facility with appropriate resources Outcome: Progressing Problem: Chronic Conditions and Co-morbidities Goal: Patient's chronic conditions and co-morbidity symptoms are monitored and maintained or improved Outcome: Progressing Identify possible barriers to meeting goals/advancing plan of care: surgical procedure Stability of the patient: Moderately Stable - Low risk of patient condition declining or worsening End of Shift Summary Leanna PERKINS returned call and she is fine with the patient discharging tomorrow to SNF as long as she is doing well. Called her daughter Grecia [phone]. She will discuss with her mother about discharging tomorrow to SNF and update CM in the morning per phone before coming. Pao from [facility] called and she has precert for the patient to admit tomorrow. She will need notified first in the morning with discharge time, covid result- cell [phone] then report called to [phone] Orders faxed to [phone] She does need a negative covid swab in the morning before she is called. Patient updated and she would like to pray about it as she really wanted to go home and not to a SNF. Message left for Leanna PERKINS for discharge order for tomorrow HENS completed Into see patient, and daughter and updated [facility] in precert process. Family still plans to transport when approved. Afternoon PT note faxed to Pao at [facility] for Precert. [facility] Physical Therapy Treatment PT Discharge Recommendations: half-way facility placement Distance Ambulated (ft): 40 Device: Rolling walker Orthopedic Precautions: Back Precautions Fall prevention education provided including use of call light in hospital, use of appropriate assistive device, safe mobility techniques, and safety measures at home. Continue PT as per POC. Subjective/Objective/Assessment/Isabel n In to see pt with RN permission. Pt received seated EOB with RN present to administer pain meds. Pt agreeable to PT services. Pt's spouse and daughter present for session. See below for complete mobility performance details with pt limited during gait training by reports of B LE radicular pain. Pt left seated in bedside chair with LSO in place, tray table in place, call light/phone within reach and all needs met. 04/04/23 1343 General Family/Caregiver Present Yes PT Time Calculation PT Start Time 1343 PT Stop Time 1421 PT Time Calculation (min) 38 min Precautions Medical Precautions Fall Risk Safety Interventions Call alford within reach;Gait belt Orthopedic Precautions Back Precautions Orthoses Applied LSO (at all times) Pain Assessment Pain Assessment 0-10 Pain Score 8 Pain Type Surgical pain Pain Location Back Pain Orientation Lower Pain Radiating Towards B posterior legs down to knees Pain Descriptors Shooting Pain Interventions Repositioned;RN notified (Comment);Ambulation/increased activity Response to Interventions Pt reporting decrease in pain when positioned in bedside chair. RN also administered pain meds prior to PT session. Cognition Arousal/Alertness Appropriate responses to stimuli Orientation Level Oriented X4 Following Commands Follows all commands and directions without difficulty Bed Mobility Bed Mobility Comments not assessed this session Transfers Sit to Stand Assistance Contact guard Toilet Transfer Assistance Contact guard Transfer Comments VC's for proper hand placement with transfers Ambulation Walking Assistance Contact guard Device Rolling walker Distance Ambulated (ft) 40 Comments Pt limited by reports of severe B posterior LE radicular pain that shoots down to her knees Gait Training Gait Training Time Entry 15 Gait Training Activity 1 Gait training with FWW Therapeutic Activity Therapeutic Activity Time Entry 23 Therapeutic Activity 1 Review of B LE VRE Therapeutic Activity 2 STS and toilet transfer training Therapeutic Activity 3 Education PT Assessment Medical Staff Made Aware Yes Comments WILLIE Al notified that pt was unable to void and pt left seated in bedside chair Goals/Education Encounter Problems Encounter Problems (Active) Template: Physical Therapy Problem: PT Short Term Goals Dates: Start: 04/03/23 Goal: Pt will perform bed mobility with CGA. Dates: Start: 04/03/23 Expected End: 04/04/23 Outcomes Date/Time User Outcome 04/04/23 1133 Lena Sosa, PT Progressing Goal: Pt will transfer with SBA. Dates: Start: 04/03/23 Expected End: 04/04/23 Outcomes Date/Time User Outcome 04/04/23 1444 Lena Sosa, PT Progressing Goal: Pt will ambulate 150 ft. with wheeled walker and SBA Dates: Start: 04/03/23 Expected End: 04/04/23 Outcomes Date/Time User Outcome 04/04/23 1444 Lena Sosa, PT Progressing Goal: Caregiver/patient will demonstrate understanding of surgical and safety precautions during mobility tasks Dates: Start: 04/03/23 Expected End: 04/04/23 Outcomes Date/Time User Outcome 04/04/23 1444 Lena Sosa, PT Progressing Goal: Pt will ascend/descend stairs with CGA/LRAD Dates: Start: 04/04/23 Expected End: 04/05/23 Outcomes Date/Time User Outcome 04/04/23 1444 Lena Sosa, PT Progressing Encounter Problems (Resolved) There are no resolved problems. Education Documentation Precautions, taught by Lena Sosa PT at 04/04/2023 2:45 PM. Learner: Patient Readiness: Acceptance Method: Explanation Response: Verbalizes Understanding Body Mechanics, taught by Lena Sosa PT at 04/04/2023 2:45 PM. Learner: Patient Readiness: Acceptance Method: Explanation Response: Verbalizes Understanding Mobility Training, taught by Lena Sosa PT at 04/04/2023 2:45 PM. Learner: Patient Readiness: Acceptance Method: Explanation Response: Verbalizes Understanding Explain call button use, taught by Lena Sosa PT at 04/04/2023 2:45 PM. Learner: Patient Readiness: Acceptance Method: Explanation Response: Verbalizes Understanding Teach fall prevention measures, taught by Lena Sosa PT at 04/04/2023 2:45 PM. Learner: Patient Readiness: Acceptance Method: Explanation Response: Verbalizes Understanding Explain call button use, taught by Lena Sosa PT at 04/04/2023 11:34 AM. Learner: Patient Readiness: Acceptance Method: Explanation Response: Verbalizes Understanding Teach fall prevention measures, taught by Lena Sosa PT at 04/04/2023 11:34 AM. Learner: Patient Readiness: Acceptance Method: Explanation Response: Verbalizes Understanding Precautions, taught by Lena Sosa PT at 04/04/2023 11:33 AM. Learner: Patient Readiness: Acceptance Method: Explanation, Demonstration, Handout Response: Verbalizes Understanding Body Mechanics, taught by Lena Soas PT at 04/04/2023 11:33 AM. Learner: Patient Readiness: Acceptance Method: Explanation, Demonstration, Handout Response: Verbalizes Understanding Mobility Training, taught by Lena Sosa PT at 04/04/2023 11:33 AM. Learner: Patient Readiness: Acceptance Method: Explanation, Demonstration, Handout Response: Verbalizes Understanding Education Comments No comments found. Spoke to Pao at [facility] [phone] and she will accept pending Auth and will begin precert. PT note faxed to [facility] at [phone] PT has finished and will complete note shortly for SNF recommendation. Into see patient and she would like [facility] Faxed referral to [phone] [facility] Physical Therapy Treatment PT Discharge Recommendations: half-way facility placement Distance Ambulated (ft): 30 Device: Rolling walker Orthopedic Precautions: Back Precautions Fall prevention education provided including use of call light in hospital, use of appropriate assistive device, safe mobility techniques, and safety measures at home. Continue PT as per POC. Subjective/Objective/Assessment/Isabel n In to see pt with RN permission. Pt has been on flat bedrest d/t an incidental durotomy, however, her HOB has been up to 45 degrees this morning with no c/o positional headache. PT educated pt in regards to B LE venous return exercises, back precautions with handout, and LSO wear/care schedule. Pt gave verbal understanding. Increased time required to answer all pt questions regarding back precautions and completion of certain ADLs. Pt states that she does have 2 steps down into her bedroom that she would need to negotiate. Stair goal added. Pt states that she will at times help hold her up by his belt and steady him when he negotiates stairs. I educated pt that she will not be allowed to do this with her back precautions. See below for complete mobility performance details with pt limited by c/o B LE posterior radicular pain that goes down to her knees. Pt states this was present prior to surgery. Pt left supine in bed with B DVT pumps on, LSO in place, call light/phone within reach and all needs met. 04/04/23 0930 General Family/Caregiver Present No PT Time Calculation PT Start Time 0930 PT Stop Time 1031 PT Time Calculation (min) 61 min Precautions Medical Precautions Fall Risk Safety Interventions Call alford within reach;Gait belt Orthopedic Precautions Back Precautions Orthoses Applied LSO (at all times) Pain Assessment Pain Assessment 0-10 Pain Score 8 Pain Type Surgical pain Pain Location Back Pain Orientation Lower Pain Radiating Towards B posterior legs down to her knees Pain Descriptors Shooting Pain Interventions Repositioned;RN notified (Comment);Ambulation/increased activity Cognition Arousal/Alertness Appropriate responses to stimuli Orientation Level Oriented X4 Following Commands Follows all commands and directions without difficulty Bed Mobility Sitting to Lying Assistance Minimum assistance Lying to Sitting Assistance Minimum assistance Bed Mobility Comments VC's for log roll technique Transfers Sit to Stand Assistance Minimum assistance Transfer Comments Assist for lift off for sit>stand Ambulation Walking Assistance Contact guard Device Rolling walker Distance Ambulated (ft) 30 Comments VC's for safety/proximity to FWW Strength RLE R Ankle Dorsiflexion 5/5 R Ankle Plantar Flexion 5/5 Strength LLE L Ankle Dorsiflexion 5/5 L Ankle Plantar Flexion 5/5 Procedures Procedures Gait Training;Therapeutic Activity Gait Training Gait Training Time Entry 15 Gait Training Activity 1 Gait training with FWW w/ pt limited by c/o B posterior leg radicular pain Therapeutic Activity Therapeutic Activity Time Entry 45 Therapeutic Activity 1 Extensive review of back precautions with increased time to answer all pt questions Therapeutic Activity 2 B LE VRE Therapeutic Activity 3 Bed mobility via log roll Therapeutic Activity 4 LSO readjustment for optimal fit Therapeutic Activity 5 Transfer training with FWW PT Assessment Medical Staff Made Aware Yes Comments WILLIE Al notified of pt performance and c/o radicular pain Plan PT Discharge Recommendations half-way facility placement Goals/Education Encounter Problems Encounter Problems (Active) Template: Physical Therapy Problem: PT Short Term Goals Dates: Start: 04/03/23 Goal: Pt will perform bed mobility with CGA. Dates: Start: 04/03/23 Expected End: 04/04/23 Outcomes Date/Time User Outcome 04/04/23 1133 Lena oSsa, PT Progressing Goal: Pt will transfer with SBA. Dates: Start: 04/03/23 Expected End: 04/04/23 Outcomes Date/Time User Outcome 04/04/23 1133 Lena Bridgewater, PT Progressing Goal: Pt will ambulate 150 ft. with wheeled walker and SBA Dates: Start: 04/03/23 Expected End: 04/04/23 Outcomes Date/Time User Outcome 04/04/23 1133 Lenajoe Sosa, PT Progressing Goal: Caregiver/patient will demonstrate understanding of surgical and safety precautions during mobility tasks Dates: Start: 04/03/23 Expected End: 04/04/23 Outcomes Date/Time User Outcome 04/04/23 1133 Lena [place], PT Progressing Goal: Pt will ascend/descend stairs with CGA/LRAD Dates: Start: 04/04/23 Expected End: 09/16/23 Outcomes Date/Time User Outcome 04/04/23 1133 Lena Sosa PT Progressing Encounter Problems (Resolved) There are no resolved problems. Education Documentation Explain call button use, taught by Lena Sosa PT at 04/04/2023 11:34 AM. Learner: Patient Readiness: Acceptance Method: Explanation Response: Verbalizes Understanding Teach fall prevention measures, taught by Lena Sosa PT at 04/04/2023 11:34 AM. Learner: Patient Readiness: Acceptance Method: Explanation Response: Verbalizes Understanding Precautions, taught by Lena Sosa PT at 04/04/2023 11:33 AM. Learner: Patient Readiness: Acceptance Method: Explanation, Demonstration, Handout Response: Verbalizes Understanding Body Mechanics, taught by Lena Sosa PT at 04/04/2023 11:33 AM. Learner: Patient Readiness: Acceptance Method: Explanation, Demonstration, Handout Response: Verbalizes Understanding Mobility Training, taught by Lena Sosa PT at 04/04/2023 11:33 AM. Learner: Patient Readiness: Acceptance Method: Explanation, Demonstration, Handout Response: Verbalizes Understanding Education Comments No comments found. Orthopedic Spine Daily Progress Note Chief complaint: s/p lumbar fusion Subjective: Pt seen and evaluated on rounds. Doing well. Complains of lbp. Still having some pain down legs. Pt fischer in place. She was flat overnight. Pt denies chest pain, SOB, N, V. Denies current headache. Principal Problem: Spinal stenosis of lumbar region with neurogenic claudication Past Medical History: Diagnosis Date Anxiety Chronic pain disorder Edema lower extremity Hypertension Hypothyroidism Insomnia Overweight Skin problem right lower leg with laceration from dog,and scab above that area Wears dentures Wears glasses Past Surgical History: Procedure Laterality Date APPENDECTOMY CATARACT EXTRACTION COSMETIC SURGERY breast reduction HYSTERECTOMY OTHER SURGICAL HISTORY foot fracture ORIF OTHER SURGICAL HISTORY SPINE BENIGN TUMOR RESECTION TONSILLECTOMY TUBAL LIGATION Vital signs in last 24 hours: Temp: 36.6 C (97.9 F) (04/04 815) Heart Rate: 79 (04/04 815) Resp: 14 (04/04 815) BP: 149/64 (04/04 815) Intake/Output last 3 shifts: I/O last 3 completed shifts: In: 2490 (39.3 mL/kg) [P.O.:240; I.V.:2000 (31.6 mL/kg); Blood:150; IV Piggyback:100] Out: 2024 (32 mL/kg) [Urine:1325 (0.6 mL/kg/hr); Blood:700] Weight: 63.3 kg Intake/Output this shift: No intake/output data recorded. Physical Exam: Physical Exam Neurologic Exam Motor and neurovascularly intact. Strength 5/5. Negative homans Assessment/Plan 1 Day Post-Op s/p Procedure(s): L3-L5 Laminectomy, posterior spinal fusion with intrumentation, posterior lumbar interbody fusion: -Cont to progress activity through PT/OT - Okay for HOB up to 45 degrees. If no headache, okay to progress to activity as tolerated -DVT prophylaxis-SCDS and TEDs -Cont to progress Diet -Daily dressing changes -Pain management per medical team -Bowel regimen per medical team Dispo plan: -SNF. precertification pending -Danisha Jeffers PA-C [facility] - PROGRESS NOTE Patient Name : Christine Mays Patient : 1945 Patient Admit Date : 04/03/2023 Admission Diagnosis : Postoperative Medical Comanagement Provider Name : Sebastian Roman MD Date Of Service : 04/04/23 IMPRESSION AND PLAN : This 78 y.o. female, status post Procedure(s) (LRB): L3-L5 Laminectomy, posterior spinal fusion with intrumentation, posterior lumbar interbody fusion (N/A), is currently recovering POD#1. I have seen the patient personally today and reviewed any available labs and imaging results as documented below under the results section. Additionally I have reviewed any available progress notes from the nursing staff, anesthesia services, and surgical service have been reviewed in the EMR. Admission medication reconciliation has been completed and in addition multimodality pain medication as well as as needed medications have been ordered. Prescription drug management has been provided as outlined under the impression and plan. A medical consult has been ordered by the surgeon for perioperative management of the patient's chronic medical conditions including the following . . . HTN (I10) Chronic condition & present on admission - controlled on home prescription medications, which have been reordered. Blood pressure readings overnight have been reviewed and reasonable control. Patient's home regime including atenolol, triamterene/hydrochlorothiazide has been reordered with parameters BP Readings from Last Encounters: 04/04/23 135/65 Hypothyroidism (E03.9) Chronic preexisting condition and present on admission. Controlled on prescription thyroid hormone replacement therapy which has been reordered. Continue on levothyroxine Anxiety - Chronic condition (F41.9) and present on admission controlled. Continue on home prescription medications which have been reordered. Insomnia (F51.01) Chronic condition & controlled with home prescription medication. Medication to previously been reviewed. Continue with as needed sleeping agent at bedtime and will continue to monitor while hospitalized. Trazodone at bedtime Current BMI - Body mass index is 28.19 kg/m .. Obstructive Sleep Apnea - ABBI - ((G47.33) Chronic condition & present on admission. Stable respiratory status since surgery. I have resume home CPAP/BIPAP. Will continue to monitor while hospitalized following ABBI sleep apnea protocol with least continuous pulse oximetry. Encourage incentive spirometry while not using CPAP. Wean O2 as tolerated Advanced Age: This patient is at elevated risk for the development of perioperative confusion / delirium Cautious use of postop narcotics and recommend avoidance of problematic medications per Beers criteria.. Has done well since surgery without any significant confusion reported Hyponatremia. Preop labs noted serum sodium of 128. Patient again on chronic diuretic therapy with triamterene/hydrochlorothiazide in addition to SSRI. Labs are pending this morning. She is currently on 0.9 normal saline since surgery. Sodium 133 today which is reasonable. Contains abnormal data Basic metabolic panel Order: [id number] Status: Final result Visible to patient: Yes (not seen) 0 Result Notes 1 Topic Component Ref Range & Units 08:16 Sodium 136 - 145 mmol/L 133 Low Potassium 3.6 - 5.1 mmol/L 3.6 Chloride 98 - 107 mmol/L 100 CO2 22 - 32 mmol/L 30 Anion Gap 6 - 18 3 Low Glucose 70 - 99 mg/dL 103 High BUN 8 - 20 mg/dL 11 Creatinine 0.60 - 1.30 mg/dL 0.44 Low eGFR >=60 mL/min/1.73m2 98 BUN/Creatinine Ratio 12.0 - 20.0 25.0 High Calcium 8.9 - 10.3 mg/dL 8.5 Low Resulting Agency [facility] 2 wk ago 128 Low Anemia-mild and currently well-tolerated, will continue to follow clinically while hospitalized. EBL was consistent with what is typical for the procedure. Currently without signs or symptoms suggesting need for transfusion. Lab Results Component Value Date HGB 10.3 (L) 04/04/2023 Results from last 7 days Lab Units 04/04/23 0812 HEMOGLOBIN g/dL 10.3* HEMATOCRIT % 30.9* DVT prophylaxis is recommended as per current ACCP guidelines. Pharmacologic DVT prophylaxis will be left to the discretion of the primary surgical service.. Have encourage venous return exercises. This patient will be considered acceptable for discharge from a medical perspective if the following criteria are met . . . 1. Oxygen Saturations > 90% on Room Air 2. Able to void without difficulty 3. Meets Physical Therapy goals for discharge 4. Passing Flatus without nausea vomiting or abdominal distention 5. Cleared for discharge by surgeon 6. Discharge medication reconciliation completed, defer post discharge management of anticoagulants, DVT prophylaxis, NSAIDs, opiates, and antibiotics to surgical service. Subjective Patient reports pain is currently elevated overnight and this morning. Currently rating 9. She states that her tramadol does not seem to be effective. She has been receiving scheduled Tylenol. She reports she has used Robbins in the past Currently rating pain at moderate to high. States currently 9. Flatus: Yes Voiding: Fischer in overnight. Adequate urine output noted. Just removed for void trial Ambulation: None day of surgery. Family member present: None currently REVIEW OF SYSTEMS Cardiovascular: Denies chest pain Respiratory: Denies shortness of breath or cough Gastrointestinal: Denies abdominal pain or nausea/vomiting Genitourinary: Denies urinary retention or incomplete voiding VITALS : Visit Vitals BP 135/65 Pulse 71 Temp 36.6 C (97.9 F) Resp 12 Ht 1.499 m (59") Wt 63.3 kg (139 lb 8.8 oz) SpO2 97% BMI 28.19 kg/m Smoking Status Former BSA 1.58 m I&O: I/O last 3 completed shifts: In: 2490 (39.3 mL/kg) [P.O.:240; I.V.:2000 (31.6 mL/kg); Blood:150; IV Piggyback:100] Out: 1775 (28 mL/kg) [Urine:1075 (0.5 mL/kg/hr); Blood:700] Weight: 63.3 kg I/O this shift: In: - Out: 250 [Urine:250] PHYSICAL EXAM : General - No acute distress; Alert and conversational Skin -no rash, normal turgor Cardiology - No tachycardia noted, regular rate and rhythm. No peripheral edema noted Respiratory - Clear to auscultate bilaterally; No accessory respiratory muscle use noted; No wheezing noted Abdominal - No distention. Non-tender to palpation; positive bowel sounds Musculoskeletal - No calf tenderness noted on palpation, good dorsiflexion plantarflexion both feet Psychiatric - Appropriate affect, Alert and oriented to person, place, and situation Neurologic -no focal deficits. RESULTS : LABS reviewed below CBC Lab Results Component Value Date WBC 7.9 03/18/2023 HGB 12.7 03/18/2023 HCT 37.5 03/18/2023 MCV 95.9 03/18/2023 PLT 321 03/18/2023 CMP Lab Results Component Value Date NA 128 (L) 03/18/2023 K 5.2 (H) 03/18/2023 CL 91 (L) 03/18/2023 CO2 30 03/18/2023 BUN 18 03/18/2023 CREATININE 0.56 (L) 03/18/2023 GLUCOSE 105 (H) 04/03/2023 IMAGING XR Fluoro Up To 1 Hour (Statistics)(No Report) This order has been auto-finalized and does not contain a result. Problem: Sensory: Goal: Demonstrates/reports adequate pain control Outcome: Progressing Problem: Activity: Goal: Ability to ambulate will improve Outcome: Progressing Goal: Range of joint motion will be supported Outcome: Progressing Problem: Sensory: Goal: Pain level will improve or be tolerable Outcome: Progressing Goal: Ability to develop a pain control plan will improve Outcome: Progressing Problem: VTE Prevention: Goal: Will remain free of signs and symptoms of VTE Outcome: Progressing Problem: Activity: Goal: Mobility will improve Outcome: Progressing Goals: Identify possible barriers to meeting goals/advancing plan of care: bedrest DOS Stability of the patient: Moderately Stable - Low risk of patient condition declining or worsening End of Shift Summary: patient is progressing towards all goals for discharge. Patient is on bedrest DOS and overnight. Orders state that patient may advance in activity in the morning if there is no positional headache. Problem: Activity: Goal: Ability to ambulate will improve Outcome: Not Progressing Goal: Range of joint motion will be supported Outcome: Not Progressing Problem: Activity: Goal: Mobility will improve Outcome: Not Progressing Problem: Sensory: Goal: Demonstrates/reports adequate pain control Outcome: Progressing Problem: Sensory: Goal: Pain level will improve or be tolerable Outcome: Progressing Goal: Ability to develop a pain control plan will improve Outcome: Progressing Problem: VTE Prevention: Goal: Will remain free of signs and symptoms of VTE Outcome: Progressing Goals: Control pain Identify possible barriers to meeting goals/advancing plan of care: mobility, headache due to dural tear possible, passing flatus, voiding independently Stability of the patient: Moderately Stable - Low risk of patient condition declining or worsening End of Shift Summary: Patient is on flat bedrest until tomorrow morning, but surgeon did state the head of the bed could be raised to eat. Patient notes pain in low back that is constant, but did find relief with IV breakthrough medication. Patient has a Fischer in place due to lack of mobility allowed. She plans to discharge to home versus a rehab facility based on her progress after her bedrest restriction is lifted. I spoke at length with the patient regarding pain control and the surgeon also spoke to the patient about pain control. Patient requires reinforcement and encouragement regarding her pain level and our ability to aid her with pain control. I spoke in person to Dr. Hanna. Surgeon states that patient should try and keep brace on at all times, but if she cannot tolerate the brace tonight, she can remove the brace since she is on flat bedrest. However, brace must be in place to get up with staff tomorrow. Surgeon also states that patient can have bed elevated 45 degrees to be able to eat. Physician states he relayed this information to the patient. 04/03/23 1649 Initial Transition Plan Initial Transition Plan Home Back up Transition Plan Back up Transition plan Custodial Facility Discharge Planning Contact (Name, Phone #, Relationship) for DC Planning [facility] [phone] Living Arrangements Spouse/significant other;Family members;Other (Comment) (26YR OLD GRANDSON) Type of Residence Private residence Assistive Devices Walker;Other (Comment);Shower chair (LSO BRACE) Support Systems Spouse/significant other;Children;Immediate family Medication Coverage Has Med Coverage Under Insurance Plan Yes Medication Affordability No concerns related to payment for meds Informed Choice Informed Choice Given? Yes Time Spent Time Spent (minutes) 20 minutes PCP AND DEMOGRAPHICS CONFIRMED. CORRECT po box FOR MAIL AND STREET ADDRESS IS [address] Patient lives on the main floor of the home with ramp entrance. Her is in a WC and she has been a caregiver. Their 26yr old grandson lives with them to help as well. Supportive daughter at bedside lives close and other family members as well. Patient has 2 steps in the home to her bedroom. They have a WIS with SB's Seat and SC. High toilet with SB's FWW. She has a electric recliner that is in the living room with no steps then to manage tot he bedroom. Daughter is concerned she will over do it and help her as she always has and would like her to go to a SNF to recover. Patient voices she does not want to go to a SNF. Explained we will see how she does tomorrow with therapy and see their recommendations and discuss with Dr Hanna his recommendations. Denies NSAIDS and Nicotine use. Reviewed OTC stool softeners and pharmacy confirmed [facility] in [place]. Socorro kong reviewed for DVT prevention LSO ATC and in place. Patient currently on flat bedrest tonight. SIOH reviewed and no needs identified [facility] Physical Therapy Evaluation PT Discharge Recommendations: Home independent Distance Ambulated (ft): 0 Orthopedic Precautions: Back Precautions (FLAT bedrest until POD#1) Orthoses Applied: LSO (on at all times) Strength RLE R Ankle Dorsiflexion: 3+/5 R Ankle Plantar Flexion: 3+/5 Strength LLE L Ankle Dorsiflexion: 3+/5 L Ankle Plantar Flexion: 3+/5 AM-PAC: * Rolando Hanna DO - Primary Procedure(s): L3-L5 Laminectomy, posterior spinal fusion with intrumentation, posterior lumbar interbody fusion Day of Surgery Fall prevention education provided including use of call light in hospital, use of appropriate assistive device, safe mobility techniques, and safety measures at home. Continue PT as per POC. Bedside PT eval complete s/p lumbar fusion. Order is for flat bedrest. Ok to progress up to chair for breakfast POD#1. If no positional CHILDS then ok to to progress activity as tolerated. Pt reports no CHILDS at this time. Reviewed all back precautions with pt and family. Pt logrolled 1x each direction with assist of PT and RN in order to don LSO as pt to wear at all times. Cooling blanket in place. Once pt flat again, pt writhing in pain, states its not the brace but her surgical site and legs that are painful- RN left to retrieve IV pain meds. Pt unsure of d/c plan - home vs SNF. Will progress activity once allowed and tolerated. DVT pumps on and call light in reach. Pt's dtr and spouse in room. Subjective Patient Active Problem List Diagnosis Spinal stenosis of lumbar region with neurogenic claudication Past Medical History: Diagnosis Date Anxiety Chronic pain disorder Edema lower extremity Hypertension Hypothyroidism Insomnia Overweight Skin problem right lower leg with laceration from dog,and scab above that area Wears dentures Wears glasses Past Surgical History: Procedure Laterality Date APPENDECTOMY CATARACT EXTRACTION COSMETIC SURGERY breast reduction HYSTERECTOMY OTHER SURGICAL HISTORY foot fracture ORIF OTHER SURGICAL HISTORY SPINE BENIGN TUMOR RESECTION TONSILLECTOMY TUBAL LIGATION Objective 04/03/23 1615 PT Time Calculation PT Start Time 1615 PT Stop Time 1630 PT Time Calculation (min) 15 min Precautions Orthopedic Precautions Back Precautions (FLAT bedrest until POD#1) Orthoses Applied LSO (on at all times) Pain Assessment Pain Assessment 0-10 Pain Score 10 - Worst possible pain Pain Type Surgical pain Pain Location Back Pain Interventions Repositioned;Cold applied;Compression Cognition Overall Cognitive Status WFL Home Living Type of Home House Lives With Spouse Home Adaptive Equipment Walker - rolling Home Layout One level Home Access Ramped entrance Prior Function Level of Tift Independent with mobility and functional transfers Receives Help From Family Bed Mobility Rolling Left and Right Assistance Minimum assistance;Minimal verbal cues Rolling Left and Right Deficit Verbal cueing;Supervision/safety awareness;Assist to reposition upper body;Increased time to complete Bed Mobility Comments logrolling once to each side in order to don LSO Ambulation Distance Ambulated (ft) 0 Comments flat bedrest RLE Assessment RLE Assessment Within Functional Limits RLE Assessment Additional Yes Strength RLE R Ankle Dorsiflexion 3+/5 R Ankle Plantar Flexion 3+/5 LLE Assessment LLE Assessment Within Functional Limits LLE Assessment Additional Yes Strength LLE L Ankle Dorsiflexion 3+/5 L Ankle Plantar Flexion 3+/5 PT Assessment PT Assessment/ Barriers to discharge Decreased mobility Prognosis Good Evaluation/Treatment Tolerance Treatment limited secondary to medical complications (Comment) Comments bedrest Medical Staff Made Aware Yes Comments RN in room during eval- assisted with donning LSO. aware of pain level Plan Treatment/Interventions ADL retraining;Patient/family training;Equipment eval/education;Bed mobility;Gait training PT Plan Skilled PT PT Frequency 7 days per week PT Duration of Sessions PRN PT Treatments per day 1-2 times per day PT Discharge Recommendations Home independent Equipment Recommended pt's spouse to bring in WW tomorrow PT - Evaluation Status Complete PT Evaluation Time Entry PT Evaluation (Low) Time Entry 15 Treatment performed during evaluation: Goals and Education Encounter Problems Encounter Problems (Active) Template: Physical Therapy Problem: PT Short Term Goals Dates: Start: 04/03/23 Goal: Pt will perform bed mobility with CGA. Dates: Start: 04/03/23 Expected End: 04/04/23 Outcomes Date/Time User Outcome 04/03/231644 Lenora Segovia PT Progressing Goal: Pt will transfer with SBA. Dates: Start: 04/03/23 Expected End: 04/04/23 Outcomes Date/Time User Outcome 04/03/231644 Lenora Segovia PT Progressing Goal: Pt will ambulate 150 ft. with wheeled walker and SBA Dates: Start: 04/03/23 Expected End: 04/04/23 Outcomes Date/Time User Outcome 04/03/23 1645 Lenora Segovia PT Progressing Goal: Caregiver/patient will demonstrate understanding of surgical and safety precautions during mobility tasks Dates: Start: 04/03/23 Expected End: 04/04/23 Outcomes Date/Time User Outcome 04/03/23 1645 Lenora Segovia PT Progressing Encounter Problems (Resolved) There are no resolved problems. Education Documentation Precautions, taught by Lenora Segovia PT at 04/03/2023 4:46 PM. Learner: Patient Readiness: Eager Method: Explanation Response: Verbalizes Understanding Body Mechanics, taught by Lenora Segovia PT at 04/03/2023 4:46 PM. Learner: Patient Readiness: Eager Method: Explanation Response: Verbalizes Understanding Mobility Training, taught by Lenora Segovia PT at 04/03/2023 4:46 PM. Learner: Patient Readiness: Eager Method: Explanation Response: Verbalizes Understanding Explain call button use, taught by Lenora Segovia PT at 04/03/2023 4:46 PM. Learner: Patient Readiness: Eager Method: Explanation Response: Verbalizes Understanding Teach fall prevention measures, taught by Lenora Segovia PT at 04/03/2023 4:46 PM. Learner: Patient Readiness: Eager Method: Explanation Response: Verbalizes Understanding Education Comments No comments found. RN at bedside for her assessment. CM will return later today for CM assessment [facility] - PROGRESS NOTE Patient Name : Christine Mays Patient : 1945 Patient Admit Date : 04/03/2023 Admission Diagnosis : Postoperative Medical Comanagement Provider Name : Sebastian Roman MD Date Of Service : 04/03/23 IMPRESSION AND PLAN : This 78 y.o. female, status post Procedure(s) (LRB): L3-L5 Laminectomy, posterior spinal fusion with intrumentation, posterior lumbar interbody fusion (N/A), is currently recovering DOS. I have seen the patient personally today and reviewed any available labs and imaging results as documented below under the results section. Additionally I have reviewed any available progress notes from the nursing staff, anesthesia services, and surgical service have been reviewed in the EMR. Admission medication reconciliation has been completed and in addition multimodality pain medication as well as as needed medications have been ordered. Prescription drug management has been provided as outlined under the impression and plan. A medical consult has been ordered by the surgeon for perioperative management of the patient's chronic medical conditions including the following . . . HTN (I10) Chronic condition & present on admission - controlled on home prescription medications, which have been reordered. Atenolol, triamteren/hydrochlorothiazide I have ordered as needed clonidine. BP Readings from Last 2 Encounters: 04/03/23 (!) 196/93 Hypothyroidism (E03.9) Chronic preexisting condition and present on admission. Controlled with home prescription thyroid hormone replacement medications, which have been reordered. Levothyroxine Anxiety - Chronic condition (F41.9) and present on admission controlled with home medications, which have been reordered. Sedation Parameters as needed with any use of benzodiazepine medications. Made worse with recent surgery noted in PACU. Anesthesia aware. Had some significant agitation during early emergence but is improving. Anesthesia to give a dose of Versed to help with anxiety related symptoms early in PACU Insomnia (F51.01) Chronic condition & controlled with home prescription medication. Medication to previously been reviewed. Continue with as needed sleeping agent at bedtime and will continue to monitor while hospitalized. Trazodone Current BMI - Body mass index is 28.19 kg/m .. Sleep Apnea - ABBI - ((G47.33) Chronic condition & present on admission. Stable respiratory status in PACU. Patient historically reports not currently using or intolerant to past use of CPAP/BiPAP. This patient is at elevated risk for postoperative pulmonary complication. Will monitor while hospitalized via sleep apnea protocol with least continuous pulse oximetry. Close attention to patient's pain medication/narcotics. Acute Blood loss with surgery -700 mL EBL@ reported - tolerating well early PACU - Will follow clinically with supportive IV fluids & monitor blood pressure and urine output. In addition monitor hemoglobin/hematocrit post procedure as needed. Advanced Age: This patient is at elevated risk for the development of perioperative confusion / delirium Cautious use of postop narcotics and recommend avoidance of problematic medications per Beers criteria.. Hyponatremia ( E87.1) noted with preop labs with a serum sodium of 128. It should note that she is on chronic diuretic therapy with triamterene/hydrochlorothiazide in addition to SSRI both of which have been associated with hyponatremia. Could be problematic around surgery. We will change her LR over to 0.9 normal saline. Would avoid hypotonic solutions as much as possible. We will need to continue to monitor closely while hospitalized. Lab Results Component Value Date NA 128 (L) 03/18/2023 K 5.2 (H) 03/18/2023 CL 91 (L) 03/18/2023 CO2 30 03/18/2023 BUN 18 03/18/2023 CREATININE 0.56 (L) 03/18/2023 GLUCOSE 105 (H) 04/03/2023 DVT prophylaxis is recommended as per current ACCP guidelines. Pharmacologic DVT prophylaxis will be left to the discretion of the primary surgical service.. Have encourage venous return exercises. Subjective Patient seen and examined, Chart reviewed in PACU. I have reviewed H&P, preop labs & EKG Patient unable to provide much details. Anesthesia Sheet Reviewed - General IVF -1000 mL U/O- Fischer in place. 350 mL EBL - 700 mL Cell Saver returned 150 mL Dexamethasone 10 mg noted given Monitor in PACU shows sinus rhythm Discussed with SUPERINTENDENT GENERAL Did require 2 nurses because of significant agitation upon emergence. She is improving. Is reporting significant pain issues upon entry in the recovery unit Subjective: Rates pain currently -high early PACU currently rating 8-9 No nausea, vomiting No Chest pain, sob REVIEW OF SYSTEMS Cardiovascular: Denies chest pain Respiratory: Denies shortness of breath or cough Gastrointestinal: Denies abdominal pain or nausea/vomiting Genitourinary: Denies urinary retention or incomplete voiding VITALS : Visit Vitals BP (!) 196/93 Pulse (!) 119 Temp 36.5 C (97.7 F) Resp (!) 28 Ht 1.499 m (59") Wt 63.3 kg (139 lb 8.8 oz) SpO2 100% BMI 28.19 kg/m Smoking Status Former BSA 1.58 m I&O: No intake/output data recorded. I/O this shift: In: 2250 [I.V.:2000; Blood:150; IV Piggyback:100] Out: 1050 [Urine:350; Blood:700] PHYSICAL EXAM : General - No Apparent Distress, somnolent but arouses easily Skin - No Rash, Normal Turgor Eyes - Pupils Equal, Conjunctiva Clear ENT - External Ears Normal, Hearing Normal Neck - Trachea Midline, No TMG Cardiovascular - Regular Rate and Rhythm, No Murmurs, Gallops, or Rubs, No Peripheral Edema Respiratory - CTA, Normal Resp. Effort GI - Soft Nontender, Hypoactive early bowel Sounds Musculoskeletal - Good DF/PF bilaterally, No Calf Tenderness Neuro/Psych - Somnolent but arouses easily, & follows simple commands, Appropriate Mood and Affect RESULTS : LABS recent available reviewed below CBC Lab Results Component Value Date WBC 7.9 03/18/2023 HGB 12.7 03/18/2023 HCT 37.5 03/18/2023 MCV 95.9 03/18/2023 PLT 321 03/18/2023 CMP Lab Results Component Value Date NA 128 (L) 03/18/2023 K 5.2 (H) 03/18/2023 CL 91 (L) 03/18/2023 CO2 30 03/18/2023 BUN 18 03/18/2023 CREATININE 0.56 (L) 03/18/2023 GLUCOSE 105 (H) 04/03/2023 Results from last 7 days Lab Units 04/03/23 0809 POCT GLUCOSE mg/dL 105* No lab exists for component: LABALBU GLUCOSE Glucose POCT Date Value Ref Range Status 04/03/2023 105 (H) 70 - 99 mg/dL Final Glucose Date Value Ref Range Status 03/18/2023 87 70 - 99 mg/dL Final IMAGING XR Fluoro Up To 1 Hour (Statistics)(No Report) This order has been auto-finalized and does not contain a result. documented in this encounter [facility] 04-03-2023 Hospital course Narrative -PROHIBITED FOR 12 WEEKS ANY Nicotine products, SMOKING and Anti-Inflammatories to promote fusion healing.. -check with your pharmacy prior to discharge to make sure your prescriptions are ready for pickup -Use [id number]-[id number] stool softeners to prevent constipation DR HANNA FOLLOW UP APPOINTMENT [facility] IN 4 WEEKS CALL TO SCHEDULE AND FOR ANY QUESTIONS OR CONCERNS [phone] OR [phone] FOLLOW SURGEON INSTRUCTION SHEETS PT/OT Eval at the SNF for bed mobility, transfers, gait training, modalities prn, venous return exercises and ADL'S FWW for gait assist -PROHIBITED FOR 12 WEEKS ANY Nicotine products, SMOKING and Anti-Inflammatories to promote fusion healing.. -check with your pharmacy prior to discharge to make sure your prescriptions are ready for pickup -Use [id number] stool softeners to prevent constipation WEAR [place] HOSE FOR 4 WEEKS FOLLOWING SURGERY FOR BLOOD CLOT PREVENTION LUMBAR BRACE AROUND THE CLOCK EXCEPT REMOVE FOR SHOWERING NO BENDING , LIFTING MORE THAN 5 POUNDS, OR TWISTING DIET-REGULAR POST OP RX FOR POST OP PAIN [id number] RX INSTRUCTIONS Pre-Surgery Instructions: Medication Instructions acetaminophen (Tylenol Arthritis Pain) 650 mg 8 hr tablet Continue to take as ordered/prescribed by your pcp atenoloL (TENORMIN) 25 mg tablet Continue to take as ordered/prescribed by your pcp HYDROcodone-acetaminophen (Robbins) 5-325 mg per tablet Continue to take as ordered/prescribed by your pcp levothyroxine (SYNTHROID, LEVOTHROID) 100 mcg tablet Continue to take as ordered/prescribed by your pcp traZODone (DESYREL) 50 mg tablet Continue to take as ordered/prescribed by your pcp triamterene-hydroCHLOROthiazide (MAXZIDE) 75-50 mg per tablet Continue to take as ordered/prescribed by your pcp Additional Instructions: Instructions to prepare for surgery: Increase water intake day PRIOR to surgery. Eat light meals or follow surgeon specific food instructions day PRIOR to surgery. At Midnight, nothing is allowed in your mouth. NO food, water, gum, candy, coffee, mints, tobacco, NOTHING AFTER MIDNIGHT. When you wake up, brush your teeth and use mouthwash. Don't swallow. Take small sip of water with meds that are to be taken DOS. Shower night prior and morning of surgery with antibiotic cleanser OR Dial antibacterial soap (as designated by surgeon). No lotions, creams, powders on your skin. You may wear deodorant (unless surgery is on your shoulder or breast(s)). No shaving surgical site (within 48 hours of surgery). Remove all jewelry, piercings and leave that at home. Leave valuable at home. Wear loose fitting clothes. Bring photo ID, medical insurance card, and copay as needed when you check in for surgery. In addition, bring any of the following: CPAP, living will/ medical POA, glasses, case, hearing aid container, shoulder sling, back brace, walker, cervical collar. Bring your COVID vaccine card, if applicable. Leave walker &/or cane (unless needed prior to surgery) and overnight bag in the car until after your procedure when you are assigned a room. Only 1 designated adult is allowed to go back into Pre-Op area with you. Surgical times are subject to change up until 5:30pm the evening prior to your surgery. Check in at medical receptionist medical assistant desk [address] [place] [address]. Medication instructions per [facility] recc If Outpatient, these additional instructions apply: An adult must stay with you the whole time you are here and drive you home. An adult must stay with you at home for 24 hours due to Anesthesia. If you have ABBI, you are required to stay 3 hours after your surgery before we can discharge you. documented in this encounter [facility] 04-03-2023 Procedure note Date: 04/03/2023 Location: [facility] OR Name: Christine Mays, : 1945, Diagnosis Pre-op Diagnosis * Other forms of scoliosis, lumbar region [M41.86] * Spinal stenosis, lumbar region with neurogenic claudication [M48.062] * Radiculopathy, lumbar region [M54.16] Post-op Diagnosis * Other forms of scoliosis, lumbar region [M41.86] * Spinal stenosis, lumbar region with neurogenic claudication [M48.062] * Radiculopathy, lumbar region [M54.16] Procedures L3-5 decompression posterior spinal fusion with instrumentation, repair durotomy Indications: Christine Mays is an 78 y.o. female who is having surgery for M41.86 M48.062 M54.16. Surgeon(s) & Inspector And Clipper(s) * Rolando Hanna DO - Primary Physician Inspector And Clipper: MADDIE Means; MADDIE Blood Staff Drilling Engineering Manager: Jennifer Amador RN; Joy Rhodes RN Physician Inspector And Clipper: MADDIE Means; MADDIE Blood Security Sales Manager: Margaux Espinoza; Yari Medina Scrub Person: Jose Armando Garnett; Juan Orosco Assistive Person: Luiz Brooks Anesthesia: general ASA: III Estimated Blood Loss: 700 mL Drains: Urethral Catheter Double-lumen;Non-latex 16 Fr. (Active) Specimen: Findings: See post operative note Complications: For complications see post op note Disposition: PACU - hemodynamically stable. Condition: stable documented in this encounter [facility] 04-03-2023 Surgery Surgical operation note Date: 04/03/2023 Location: [facility] OR Name: Christine Mays DOB: 1945, Diagnosis Pre-op Diagnosis * Other forms of scoliosis, lumbar region [M41.86] * Spinal stenosis, lumbar region with neurogenic claudication [M48.062] * Radiculopathy, lumbar region [M54.16] Post-op Diagnosis * Other forms of scoliosis, lumbar region [M41.86] * Spinal stenosis, lumbar region with neurogenic claudication [M48.062] * Radiculopathy, lumbar region [M54.16] Procedures L3-5 decompression posterior spinal fusion with instrumentation, repair durotomy Indications: Christine Mays is an 78 y.o. female who is having surgery for M41.86 M48.062 M54.16. Surgeon(s) & Inspector And Clipper(s) * Rolando Rohl, DO - Primary Physician Inspector And Clipper: MADDIE Means; MADDIE Blood Staff Drilling Engineering Manager: Jennifer Amador RN; Joy Rhodes RN Physician Inspector And Clipper: MADDIE Means; MADDIE Blood Security Sales Manager: Margaux Espinoza; Yari Medina Scrub Person: Jose Armando Garnett; Juan Orosco Assistive Person: Luiz Brooks Anesthesia: general ASA: III Estimated Blood Loss: 700 mL Drains: Urethral Catheter Double-lumen;Non-latex 16 Fr. (Active) Specimen: Findings: See post operative note Complications: For complications see post op note Disposition: PACU - hemodynamically stable. Condition: stable [facility] 04-03-2023 History and physical note History and Physical Update ( H&P completed within the previous thirty days ) I personally reviewed the History and Physical, interviewed and examined the patient prior to surgery. No changes have occurred in the patient's condition since the History and Physical was completed. [facility] Work Phone: 04-03-2023 History and physical note History and Physical Update ( H&P completed within the previous thirty days ) I personally reviewed the History and Physical, interviewed and examined the patient prior to surgery. No changes have occurred in the patient's condition since the History and Physical was completed. documented in this encounter [facility] 01-08-2023 History of Present illness Narrative Left foot tenotomy and capsulotomy postop month 4. Patient states she is doing great, generally pain-free with no incidence. Feeling well. Some mild 4th toe pain but none to her 3rd. Derm: Plantar incisions well coapted without any gapping draining erythema. The toe substantially more rectus with the plantar sulcus hitting the ground no longer the distal edge with callus. Mild contracture of the 4th toe, none to the 3rd. Neuro: Preserved. Vascular: DP PT pulses are easily palpable 2-4. CFT is fair no edema. 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 -Overall doing extremely well. Could consider fourth toe arthroplasty/tenotomy capsulotomy down the road but but will hold off at this point given her overall improvement. Topical urea to the callus subfourth met head daily. Follow-up in 3 months to reconsider fourth digit tenotomy capsulotomy. documented in this encounter [facility] 11-15-2022 History of Present illness Narrative Subjective Patient ID: Christine Mays is a 77 y.o. female who presents for med check (Needs a bone density ordered). HPI Requesting for hydrocodone for pain as her pain is not adequately controlled with Tramadol. Urine drug screen ordered. Review of Systems ROS negative except discussed above in HPI. Vitals: 11/15/22 1121 BP: 140/84 Pulse: 79 SpO2: 94% Objective Physical Exam Constitutional: Appearance: Normal appearance. Neurological: Mental Status: She is alert. Assessment/Plan Christine was seen today for med check. Diagnoses and all orders for this visit: Chronic neck pain (Primary) - Opiate/Opioid/Benzo Extended Prescription Compliance; Future - Opiate/Opioid/Benzo Extended Prescription Compliance Other chronic pain - Opiate/Opioid/Benzo Extended Prescription Compliance; Future - Opiate/Opioid/Benzo Extended Prescription Compliance Spinal stenosis of lumbar region with neurogenic claudication - Opiate/Opioid/Benzo Extended Prescription Compliance; Future - Opiate/Opioid/Benzo Extended Prescription Compliance Follow up in 3 months Emmanuel Ricketts MD MPH documented in this encounter [facility] Work Phone: 11-11-2022 History of Present illness Narrative [facility] OUTPATIENT REHABILITATION DAILY TREATMENT NOTE Today's Date 11/11/2022 Patient Name: Christine Mays Date of : 1945 Current Visit #: 8 Authorized Visits: 9 Case Name: Low Back Pain History: Pre-Treatment Pain Scale: 2 Symptoms: stabilized Functional Diagnosis: 1. Spinal stenosis, lumbar region with neurogenic claudication 2. Chronic low back pain with sciatica, sciatica laterality unspecified, unspecified back pain laterality 3. Spondylolisthesis of lumbar region 4. Lumbar radiculopathy Clinical Information: Subjective: She is compliant with HEP. She's having pain in her R hip and needs to do stretches to loosen it up Objective Fair(+) trunk control with core exercises. Treatments: Physical Therapy Exercise Log - 11/11/22 1220 OTHER Precautions/Contraindications Supervising PT: Igor - emphasize posture, core stability and progress lumbar extension/lordosis Notes Visit 7 1135- 12:15 - [employer] insurance Therapeutic Exercise (23611) Intervention sitting with lumbar roll x2 mins / standing w/ lumbar roll at wall w/ shoulders back x1 min Parameters LTR on red t-ball 10x5" Intervention PPTs w/ LEs elevated 10x5" Parameters piriformis and SKTC stretches 3x20" bilat. Intervention dying bugs 2x20 alt. Parameters bridges 2x10 Intervention supine sciatic nerve glides 10x5" bilat. Parameters standing hip ext and heel raises x10 Intervention standing hip flexor stretches 3x20" bilat. PT Treatment Times Therex Total Time 40 Direct Treatment Time 40 Total Treatment Time 40 Goals: Physical Therapy Ortho Goals: MOBILITY: Patient will be able to ambulate for 30 minutes in community without difficulty in 4 weeks. CHANGING MAINTAINING POSITON: Patient will be able to stand for 30 minutes to complete ADL's, IADL's and housekeeping without difficulty in 4 weeks IMPAIRMENT: Patient will demonstrate improved postural awareness in PT sessions to facilitate mechanical alignment and function in 3 weeks. IMPAIRMENT: Improve pain to <4/10 during prolonged standing, walking and lifting/carrying in 4 weeks IMPAIRMENT: Improve MMT of Right Hip Flexion from 4/5 to 4+/5 in 4 weeks IMPAIRMENT: Improve AROM of Lumbar Extension from lacking 25% movement to no loss of motion in 4 weeks. OTHER: Patient will increase FOTO score from 39 to at least 50 to show MDC/MCII and expected functional outcome in 4 weeks. OTHER: Patient will be able to properly demonstrate independence with HEP in 1 week. Patient Education: Quality of movement with patient demonstrated understanding. Post-Treatment Pain Scale: 2 Assessment: Patient had an expected response to treatment. Skilled Intervention demonstrated by modifications of treatment per exercise log including increased load and safety interventions per exercise log. Progress towards goals as expected. Plan for Next Visit: Treatment Visit with focus on core strength Andie Ryan PTA STATE LICENSE, [id number] documented in this encounter [facility] 11-07-2022 History of Present illness Narrative [facility] OUTPATIENT REHABILITATION DAILY TREATMENT NOTE Today's Date 11/07/2022 Patient Name: Christine Mays Date of : 1945 Current Visit #: 7 Authorized Visits: 9 Case Name: Low Back Pain History: Pre-Treatment Pain Scale: 7 Symptoms: stabilized Functional Diagnosis: 1. Spinal stenosis, lumbar region with neurogenic claudication 2. Chronic low back pain with sciatica, sciatica laterality unspecified, unspecified back pain laterality 3. Spondylolisthesis of lumbar region 4. Lumbar radiculopathy Clinical Information: Subjective: Pt reports being sore and achy today and pain is worse than yesterday. Pt stated pain going down legs and hips. Objective Treatments: Physical Therapy Exercise Log - 11/07/22 1135 OTHER Precautions/Contraindications Supervising PT: Igor - emphasize posture, core stability and progress lumbar extension/lordosis Notes Visit 6 1135- 12:15 - [employer] insurance Therapeutic Exercise ([id number]) Intervention sitting with lumbar roll x2 mins / standing w/ lumbar roll at wall w/ shoulders back x1 min Parameters LTR on red t-ball 10x5" Intervention PPTs w/ LEs elevated 10x5" Parameters piriformis and SKTC stretches 3x20" bilat. Intervention dying bugs 2x20 alt. Parameters bridges 2x10 Intervention supine sciatic nerve glides 10x5" bilat. Parameters standing hip ext and heel raises x10 Intervention standing hip flexor stretches 3x20" bilat. PT Treatment Times Therex Total Time 40 Direct Treatment Time 40 Total Treatment Time 40 Goals: Physical Therapy Ortho Goals: MOBILITY: Patient will be able to ambulate for 30 minutes in community without difficulty in 4 weeks. CHANGING MAINTAINING POSITON: Patient will be able to stand for 30 minutes to complete ADL's, IADL's and housekeeping without difficulty in 4 weeks IMPAIRMENT: Patient will demonstrate improved postural awareness in PT sessions to facilitate mechanical alignment and function in 3 weeks. IMPAIRMENT: Improve pain to <4/10 during prolonged standing, walking and lifting/carrying in 4 weeks IMPAIRMENT: Improve MMT of Right Hip Flexion from 4/5 to 4+/5 in 4 weeks IMPAIRMENT: Improve AROM of Lumbar Extension from lacking 25% movement to no loss of motion in 4 weeks. OTHER: Patient will increase FOTO score from 39 to at least 50 to show MDC/MCII and expected functional outcome in 4 weeks. OTHER: Patient will be able to properly demonstrate independence with HEP in 1 week. Patient Education: Quality of movement with patient demonstrated understanding. Post-Treatment Pain Scale: 7 Assessment: Patient had an expected response to treatment. Skilled Intervention demonstrated by modifications of treatment per exercise log including increased load and safety interventions per exercise log. Progress towards goals as expected. Plan for Next Visit: Treatment Visit with focus on core strengthening and atability Jamey Phillips PTA STATE LICENSE, [id number] documented in this encounter [facility] 11-04-2022 History of Present illness Narrative [facility] OUTPATIENT REHABILITATION DAILY TREATMENT NOTE Today's Date 11/04/2022 Patient Name: Christine Mays Date of : 1945 Current Visit #: 6 Authorized Visits: 9 Case Name: Low Back Pain History: Pre-Treatment Pain Scale: 4 Symptoms: stabilized Functional Diagnosis: 1. Spinal stenosis, lumbar region with neurogenic claudication 2. Chronic low back pain with sciatica, sciatica laterality unspecified, unspecified back pain laterality 3. Spondylolisthesis of lumbar region 4. Lumbar radiculopathy Clinical Information: Subjective: Her LB is very sore until she gets loosened up. Objective decreased sx's following piriformis stretches Treatments: Physical Therapy Exercise Log - 11/04/22 1222 OTHER Precautions/Contraindications Supervising PT: Igor - emphasize posture, core stability and progress lumbar extension/lordosis Notes Visit 5 [phone] - [employer] insurance Therapeutic Exercise ([id number]) Intervention sitting with lumbar roll x2 mins / standing w/ lumbar roll at wall w/ shoulders back x1 min Parameters LTR on red t-ball 10x5" Intervention alt. APT/PPTs w/ LEs elevated 10x5" Parameters piriformis and SKTC stretches 3x20" bilat. Intervention dying bugs 2x20 alt. Parameters bridges 2x10 Intervention supine sciatic nerve glides 10x5" bilat. Parameters standing hip ext and heel raises x10 Intervention standing hip flexor stretches 3x20" bilat. PT Treatment Times Therex Total Time 35 Direct Treatment Time 35 Total Treatment Time 35 Goals: Physical Therapy Ortho Goals: MOBILITY: Patient will be able to ambulate for 30 minutes in community without difficulty in 4 weeks. CHANGING MAINTAINING POSITON: Patient will be able to stand for 30 minutes to complete ADL's, IADL's and housekeeping without difficulty in 4 weeks IMPAIRMENT: Patient will demonstrate improved postural awareness in PT sessions to facilitate mechanical alignment and function in 3 weeks. IMPAIRMENT: Improve pain to <4/10 during prolonged standing, walking and lifting/carrying in 4 weeks IMPAIRMENT: Improve MMT of Right Hip Flexion from 4/5 to 4+/5 in 4 weeks IMPAIRMENT: Improve AROM of Lumbar Extension from lacking 25% movement to no loss of motion in 4 weeks. OTHER: Patient will increase FOTO score from 39 to at least 50 to show MDC/MCII and expected functional outcome in 4 weeks. OTHER: Patient will be able to properly demonstrate independence with HEP in 1 week. Patient Education: Quality of movement with patient demonstrated understanding. Post-Treatment Pain Scale: 3 Assessment: Patient had an expected response to treatment. Skilled Intervention demonstrated by modifications of treatment per exercise log including increased load and safety interventions per exercise log. Progress towards goals as expected. Plan for Next Visit: Treatment Visit with focus on core strengthening Andie Ryan PTA STATE LICENSE, [id number] documented in this encounter [facility] 10-31-2022 History of Present illness Narrative [facility] OUTPATIENT REHABILITATION DAILY TREATMENT NOTE Today's Date 10/31/2022 Patient Name: Christine Mays Date of : 1945 Current Visit #: 5 Authorized Visits: 9 Case Name: Low Back Pain History: Pre-Treatment Pain Scale: 1 Symptoms: stabilized Functional Diagnosis: 1. Spinal stenosis, lumbar region with neurogenic claudication 2. Chronic low back pain with sciatica, sciatica laterality unspecified, unspecified back pain laterality 3. Spondylolisthesis of lumbar region 4. Lumbar radiculopathy Clinical Information: Subjective: Pt reports avg pain coming in today with min soreness after LV Objective Treatments: Physical Therapy Exercise Log - 10/31/22 1143 OTHER Precautions/Contraindications Supervising PT: Igor - emphasize posture, core stability and progress lumbar extension/lordosis Notes Visit 4 [phone] - [employer] insurance Therapeutic Exercise (27135) Intervention sitting with lumbar roll x2 mins / standing w/ lumbar roll at wall w/ shoulders back x1 min Parameters LTR on red t-ball 10x5" Intervention alt. APT/PPTs w/ LEs elevated 10x5" Parameters piriformis and SKTC stretches 3x20" bilat. Intervention dying bugs 2x20 alt. Parameters bridges 2x10 Intervention supine sciatic nerve glides 10x5" bilat. Parameters standing hip ext and heel raises x10 Intervention standing hip flexor stretches 3x20" bilat. PT Treatment Times Therex Total Time 38 Direct Treatment Time 38 Total Treatment Time 38 Goals: Physical Therapy Ortho Goals: MOBILITY: Patient will be able to ambulate for 30 minutes in community without difficulty in 4 weeks. CHANGING MAINTAINING POSITON: Patient will be able to stand for 30 minutes to complete ADL's, IADL's and housekeeping without difficulty in 4 weeks IMPAIRMENT: Patient will demonstrate improved postural awareness in PT sessions to facilitate mechanical alignment and function in 3 weeks. IMPAIRMENT: Improve pain to <4/10 during prolonged standing, walking and lifting/carrying in 4 weeks IMPAIRMENT: Improve MMT of Right Hip Flexion from 4/5 to 4+/5 in 4 weeks IMPAIRMENT: Improve AROM of Lumbar Extension from lacking 25% movement to no loss of motion in 4 weeks. OTHER: Patient will increase FOTO score from 39 to at least 50 to show MDC/MCII and expected functional outcome in 4 weeks. OTHER: Patient will be able to properly demonstrate independence with HEP in 1 week. Patient Education: Verbal HEP with patient verbalized understanding. Post-Treatment Pain Scale: 1 Assessment: Patient had an expected response to treatment. Skilled Intervention demonstrated by modifications of treatment per exercise log including assessment of patient's response and safety interventions per exercise log. Progress towards goals as expected. Plan for Next Visit: Treatment Visit with focus on progressing as tolerated Velasquez Najera PTA STATE LICENSE, [id number] documented in this encounter [facility] 10-28-2022 History of Present illness Narrative [facility] OUTPATIENT REHABILITATION DAILY TREATMENT NOTE Today's Date 10/28/2022 Patient Name: Christine Mays Date of : 1945 Current Visit #: 4 Authorized Visits: 9 Case Name: Low Back Pain History: Pre-Treatment Pain Scale: 7 Symptoms: unchanged Functional Diagnosis: 1. Spinal stenosis, lumbar region with neurogenic claudication 2. Chronic low back pain, unspecified back pain laterality, unspecified whether sciatica present 3. Spondylolisthesis of lumbar region 4. Lumbar radiculopathy Clinical Information: Subjective: Pt states she still feels about the same. She has a heck of a time getting out of bed in the morning and has a lot of pain trying to stand and walk to the restroom. She continues to report a lot of pain in the legs as well as random spasms and shooting pains. Objective Treatments: Physical Therapy Exercise Log - 10/28/22 1139 OTHER Precautions/Contraindications Supervising PT: Igor - emphasize posture, core stability and progress lumbar extension/lordosis Notes Visit 3: 11:38 - 12:18 - [employer] insurance Therapeutic Exercise (05740) Intervention sitting with lumbar roll x2 mins / standing w/ lumbar roll at wall w/ shoulders back x1 min Parameters LTR on red t-ball 10x5" Intervention alt. APT/PPTs w/ LEs elevated 10x5" Parameters piriformis and SKTC stretches 3x20" bilat. Intervention dying bugs 2x20 alt. Parameters bridges 2x10 Intervention supine sciatic nerve glides 10x5" bilat. Parameters standing hip ext and heel raises x10 Intervention standing hip flexor stretches 3x20" bilat. PT Treatment Times Therex Total Time 40 Direct Treatment Time 40 Total Treatment Time 40 Goals: Physical Therapy Ortho Goals: MOBILITY: Patient will be able to ambulate for 30 minutes in community without difficulty in 4 weeks. CHANGING MAINTAINING POSITON: Patient will be able to stand for 30 minutes to complete ADL's, IADL's and housekeeping without difficulty in 4 weeks IMPAIRMENT: Patient will demonstrate improved postural awareness in PT sessions to facilitate mechanical alignment and function in 3 weeks. IMPAIRMENT: Improve pain to <4/10 during prolonged standing, walking and lifting/carrying in 4 weeks IMPAIRMENT: Improve MMT of Right Hip Flexion from 4/5 to 4+/5 in 4 weeks IMPAIRMENT: Improve AROM of Lumbar Extension from lacking 25% movement to no loss of motion in 4 weeks. OTHER: Patient will increase FOTO score from 39 to at least 50 to show MDC/MCII and expected functional outcome in 4 weeks. OTHER: Patient will be able to properly demonstrate independence with HEP in 1 week. Patient Education: Quality of movement, Verbal HEP, and Diagnosis and recovery specific education with patient verbalized understanding. Post-Treatment Pain Scale: 6 Assessment: Patient had an expected response to treatment. Skilled Intervention demonstrated by modifications of treatment per exercise log including increased volume and safety interventions per exercise log. Progress towards goals unexpected due to unstable medical presentation. Plan for Next Visit: Treatment Visit with focus on incorporation of decompression in addition to posture w/ lordosis Cesar Santos PT State License, [id number] documented in this encounter [facility] 10-24-2022 History of Present illness Narrative [facility] OUTPATIENT REHABILITATION DAILY TREATMENT NOTE Today's Date 10/24/2022 Patient Name: Christine Mays Date of : 1945 Current Visit #: 3 Authorized Visits: 9 Case Name: Low Back Pain History: Pre-Treatment Pain Scale: "no change" Symptoms: unchanged Functional Diagnosis: 1. Spinal stenosis, lumbar region with neurogenic claudication 2. Chronic low back pain, unspecified back pain laterality, unspecified whether sciatica present 3. Spondylolisthesis of lumbar region 4. Lumbar radiculopathy Clinical Information: Subjective: Pt states she is about the same. She has a lot of pain in the mornings until she stretches and then pain fluctuates throughout the day. Objective Treatments: Physical Therapy Exercise Log - 10/24/22 1137 OTHER Precautions/Contraindications Supervising PT: Igor - emphasize posture, core stability and progress lumbar extension/lordosis Notes Visit 2: 11:36 - 12:14 - [employer] insurance Therapeutic Exercise (16784) Parameters sitting with lumbar roll x2 mins / standing w/ lumbar roll at wall w/ shoulders back x1 min Intervention standing hip flexor stretches 3x20" bilat. Parameters alt. APT/PPTs 10x5" Intervention abd marching 2x20 alt. Parameters bridges x15 Intervention supine sciatic nerve glides 10x5" bilat. Parameters standing hip ext and heel raises x10 PT Treatment Times Therex Total Time 38 Direct Treatment Time 38 Total Treatment Time 38 Goals: Physical Therapy Ortho Goals: MOBILITY: Patient will be able to ambulate for 30 minutes in community without difficulty in 4 weeks. CHANGING MAINTAINING POSITON: Patient will be able to stand for 30 minutes to complete ADL's, IADL's and housekeeping without difficulty in 4 weeks IMPAIRMENT: Patient will demonstrate improved postural awareness in PT sessions to facilitate mechanical alignment and function in 3 weeks. IMPAIRMENT: Improve pain to <4/10 during prolonged standing, walking and lifting/carrying in 4 weeks IMPAIRMENT: Improve MMT of Right Hip Flexion from 4/5 to 4+/5 in 4 weeks IMPAIRMENT: Improve AROM of Lumbar Extension from lacking 25% movement to no loss of motion in 4 weeks. OTHER: Patient will increase FOTO score from 39 to at least 50 to show MDC/MCII and expected functional outcome in 4 weeks. OTHER: Patient will be able to properly demonstrate independence with HEP in 1 week. Patient Education: Quality of movement, Verbal HEP, and Diagnosis and recovery specific education with patient verbalized understanding. Post-Treatment Pain Scale: "worse" Assessment: Patient had an expected response to treatment. Skilled Intervention demonstrated by modifications of treatment per exercise log including increased volume and assessment of patient's response and safety interventions per exercise log. Progress towards goals unexpected due to higher than anticipated complexity. Plan for Next Visit: Treatment Visit with focus on extension posture Cesar Santos PT State License, [id number] documented in this encounter [facility] 10-23-2022 History of Present illness Narrative Subjective Patient ID: Christine Mays is a 77 y.o. female who presents for Medicare Annual Wellness Visit Subsequent (3 month / AWV. Results from the surgeon. Discuss arthritis ). HPI Patient is here for evaluation of her lower back pain and pain radiating to her bilateral lower extremities. Given the weakness that she is experiencing which is new from before- MRI was ordered. MRI showed IMPRESSION: Multilevel degenerative disc disease and facet arthrosis most pronounced at L4-L5 with grade 1 anterolisthesis, moderate spinal canal stenosis and mild bilateral neural foraminal stenosis. Degenerative changes are increased since the prior exam 04/08/2016." She is going to Dr. Hanna - neurosurgery, [place], [place]. Has appointment tomorrow. Reports that she is experiencing dizziness with Tramadol. Discussed that all opiates can possibly do this. Wants to establish care with pain management - referral provided. She has seen neurosurgeon who suggested spinal fusion if bone density is normal. Due for DEXA in November. Will order then. Reports that her pain is severe and it is affecting her mood. Asking if there is any other medication for arthritis. Plan: given the worsening mood and pain with arthritis, will start Duloxetin. Discussed about the potential side effects of the medication and recommended to stop taking the medication if she notices side effects. I have personally reviewed the OARRS report for CHRISTINE MAYS. I have considered the risks of abuse, dependence, addiction and diversion. I have the following concerns: no. Is the patient prescribed a combination of a benzodiazepine and opioid? No. Last urine drug screening date/ordered today: 05/07/2022 Results of last screen: Results as expected. Date of the last Controlled Substance Agreement: 05/07/2022 OPIOID What is the patient s goal of therapy? back pain control. Is this being achieved with current treatment? yes. Attestation statement: I feel that it is clinically indicated to continue this current medication regimen after consideration of alternative therapies, and other non-opioid treatments. Opioid Risk Screening: Opioid Risk Tool Last opioid risk screening date/ordered Family history of substance abuse: Alcohol = 1 Patient's total score is 1, within range of Low Risk (<= 3). Pain Scale Screening: Pain Assessment and Documentation Tool (PADT) Date of Assessment: 07/22/2022 Analgesia: Patient reports her pain level on average during the past week is 9 on a 0 - 10 scale. Patient reports that her pain level at its worst during the past week was 10 on a 0 -10 scale. 50% % of pain has been relieved during the past week per patient Patient states that the amount of pain relief she is now obtaining from her current pain reliever(s) is enough to make a real difference in her life. Query to clinician: Is the patient's pain relief clinically significant? Yes Activities of Daily Living: Physical functioning: Worse Family relationships: Same Social relationships: Same Mood: Same Sleep patterns: Same Overall functioning: Same Adverse Events: No, CHRISTINE MAYS is not experiencing side effects from current pain reliever. Patients overall severity of side effect: None Is your overall impression that this patient is benefiting (e.g., benefits, such as pain relief, outweigh side effects) from opioid therapy? Yes. I have calculated the patient's Morphine Dose Equivalent (MED): I have considered referral to Pain Management and/or a specialist, and do not feel it is necessary at this time. Hypothyroidism: No current symptoms. Need to reassess. Plan: TSH ordered to be done before the next appointment. Other fasting labs ordered. Review of Systems ROS negative except discussed above in HPI. Vitals: 10/23/22 1054 BP: 120/70 Pulse: 57 SpO2: 94% Objective Physical Exam Constitutional: Appearance: Normal appearance. Cardiovascular: Rate and Rhythm: Normal rate and regular rhythm. Pulmonary: Effort: Pulmonary effort is normal. Breath sounds: Normal breath sounds. Musculoskeletal: Cervical back: Normal range of motion and neck supple. Neurological: Mental Status: She is alert. Assessment/Plan Christine was seen today for medicare annual wellness visit subsequent. Diagnoses and all orders for this visit: Acquired hypothyroidism (Primary) - TSH with reflex to Free T4 if abnormal; Future - Lipid Panel; Future Other chronic pain - DULoxetine (Cymbalta) [address] capsule; Take 1 capsule (20 mg) by mouth once daily. Do not crush or chew. - naloxone (Narcan) 4 mg/0.1 mL nasal spray; Administer 1 spray (4 mg) into affected nostril(s) if needed for opioid reversal. May repeat every 2-3 minutes if needed, alternating nostrils, until medical assistance becomes available. - traMADol (Ultram) 50 mg tablet; Take 1 tablet (50 mg) by mouth in the morning and 1 tablet (50 mg) before bedtime. Take 1 tab po morning and before bed. 2 tabs in the afternoon. Do not take with xanax. Do not drive or drink alcohol while while on medication.. Screening for hyperlipidemia - Lipid Panel; Future Follow up in 3 months Emmanuel Ricketts MD MPH documented in this encounter [facility] Work Phone: 10-15-2022 History of Present illness Narrative [facility]IL[facility] Evaluation Today's Date 10/15/2022 Patient Name: Christine Mays Date of : 1945 Case Name: Low Back Pain Functional Diagnosis: 1. Other forms of scoliosis, lumbar region 2. Lumbar radiculopathy 3. Spinal stenosis, lumbar region, with neurogenic claudication 4. Spondylolisthesis of lumbar region Clinical Information: Subjective Referring Diagnosis: Lumbar Radiculopathy, Stenosis, Spondylilothesis History of Present Illness Subjective History: Pt reports c/o chronic low back pain with pain radiating into bilateral buttock and thighs. She was previously about 10 months ago for low back pain and experienced moderate relief of sx. She states sx have been significantly worsening recently with no recent injury or trauma. However, she did fall twice last summer. Previous Imaging: X-ray and MRI Pain Scale Pain location: lumbar spine Aggravating factors: prolonged sitting increases back pain, prolonged standing and walking increases sx in the legs Easing factors: lying supine with knees bent 24 Hour Symptom Behavior Morning Pain: sudden Afternoon Pain: better End of day pain: worse Personal Goals: Decrease pain Improve activity tolerance and quality of life Functional Mobility Status Functional Limitations: sitting, standing and limited mobility Current Mobility Status: Community: no device and independent Bed Transfer: modified independent Car Transfer: modified independent Current Activity Level: active Social Support: Roman Catholic, social, or cultural considerations to be made aware of before starting treatment: No Activities of Daily Living: to be assessed Instrumental Activities of Daily Livingto be assessed Sleep Assessment Preferred sleep position: supine (w/ knees bent) Sleep disturbance: Sleep Disturbance Red Flags: None Comments: Barriers to Care: None Fall risk screening Fallen 2 or more times in the last 12 months: Yes Injured as a result of a fall in the last 12 months: Yes Roman Catholic, social, or cultural considerations to be made aware of before starting treatment: No Lumbar Spine Posture: reduced lordosis, thoracic kyphosis, rounded shoulders posture and cervical forward head Scoliosis: confirmed on imagining Trunk AROM: Movement Loss % of Loss Description Flexion 0% Extension 25% Side Gliding R Side Gliding L Dermatomes Sensation: grossly intact Muscle Strength:WFL except Hip Flexion Right: 4 Special Tests SIJ dysfunction: no SIJ Dysfunction FOTO Score: 39 Treatments: Physical Therapy Exercise Log - 10/15/22 1056 OTHER Precautions/Contraindications Supervising PT: Igor - emphasize posture, core stability and progress lumbar extension/lordosis Notes Eval: 10:10 - 11:00 - [employer] insurance Therapeutic Exercise (26488) Intervention provided written HEP handouts consisting of the following: Parameters sitting with lumbar roll x 2 mins Intervention standing hip flexor stretches 3x20" bilat. Parameters PPTs 10x5" Intervention abd bracing 5x10" PT Treatment Times Total Treatment Time 50 Goals: Physical Therapy Ortho Goals: MOBILITY: Patient will be able to ambulate for 30 minutes in community without difficulty in 4 weeks. CHANGING MAINTAINING POSITON: Patient will be able to stand for 30 minutes to complete ADL's, IADL's and housekeeping without difficulty in 4 weeks IMPAIRMENT: Patient will demonstrate improved postural awareness in PT sessions to facilitate mechanical alignment and function in 3 weeks. IMPAIRMENT: Improve pain to <4/10 during prolonged standing, walking and lifting/carrying in 4 weeks IMPAIRMENT: Improve MMT of Right Hip Flexion from 4/5 to 4+/5 in 4 weeks IMPAIRMENT: Improve AROM of Lumbar Extension from lacking 25% movement to no loss of motion in 4 weeks. OTHER: Patient will increase FOTO score from 39 to at least 50 to show MDC/MCII and expected functional outcome in 4 weeks. OTHER: Patient will be able to properly demonstrate independence with HEP in 1 week. Occupational Therapy Ortho goals: No data was found CPT Code 10390 Low 15643 Moderate 95186 High History 0 1-2 3+ Comorbidities: anxiety, chronic pain, and thyroid disease, Personal factors: chronicity or severity of the current condition Examination of body systems (elements of body structures & functions, activity limitations, and/or participation restrictions) 1-2 elements 3+ elements 4+ elements See below clinical impression Clinical Presentation Stable Evolving Unstable As evidenced by reproduction of or changes in symptoms with certain movements and pt report of overall worsening of symtpoms over time Decision Making Low (FOTO >/= 69) Moderate (FOTO 34 - 68) High (FOTO </= 33) FOTO score= 39 Pt is a 77 y.o. female who presents to PT services with c/o low back pain with bilateral LE radiculopathy. Upon assessment, pt has been found with the following impairments: impaired posture, decreased ROM, decreased strength, and pain. 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 The pt would benefit from skilled PT services focused on the above listed impairments and limitations in order to safely progress pt to their desired level of function. Pt to be discharged from OP PT services if/when goals are met, if they fail to make progress with conservative management in PT, if their level of progress plateaus, or if they do not maintain compliance with attendance or HEP. At this time, it is my clinical judgment that services are medically necessary. Plan of Care Frequency of Visits: 2-3 times per week Duration: 6 weeks Interventions: Therapeutic Exercise (38968), Neuromuscular Re-Education (47571), Manual Therapy (38611), and Therapeutic/ Functional Activities (69598) Rehab Potential: fair Suicide Screen Signs and Symptoms of Abuse/Neglect: No Actions Taken: No Suicide Risk: Does the patient feel like ending their life today?No Actions Taken: No Patient Education Provided Pt was educated on the benefits of therapy and importance of compliance with sessions and HEP for rehabilitation. Pt was also educated on treatment diagnosis, POC, and frequency/duration of treatment. Cesar Santos, MINDY State License, [id number] documented in this encounter [facility] 09-25-2022 History of Present illness Narrative Left foot tenotomy and capsulotomy postop week 2. Patient states she is doing great, generally pain-free with no incidence. Derm: Plantar incisions well coapted without any gapping draining erythema. The toe substantially more rectus with the plantar sulcus hitting the ground no longer the distal edge with callus. Neuro: Preserved. Vascular: DP PT pulses are easily palpable 2-4. CFT is fair no edema. 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 Resolved. All stitches removed after an alcohol prep. F/u in 3 months to review. documented in this encounter [facility] 09-13-2022 History of Present illness Narrative Left foot tenotomy and capsulotomy postop week 1. Patient states she is doing great, generally pain-free with no incidence. Derm: Plantar incisions well coapted without any gapping draining erythema. The toe substantially more rectus with the plantar sulcus hitting the ground no longer the distal edge with callus. Neuro: Preserved. Vascular: DP PT pulses are easily palpable 2-4. CFT is fair no edema. 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 Can apply at home bacitracin no bandage needed. Follow-up in 1 week for stitch removal. documented in this encounter [facility] 09-06-2022 History of Present illness Narrative Left foot tenotomy and capsulotomy Patient is a pleasant 77-year-old female with a continual contracted third digit hammertoe. At this time she has elected to undergo a tenotomy capsulotomy as she not have the time capacity to undergo traditional hammertoe repair due to her managing her . No guarantees are implied or made. Process include gangrene and amputation pain tingling burning scarring infection. Despite the substantial and high risk she does wish to proceed. No guarantees were implied or made, consent was signed document the EMR. Procedure: After the patient was prepped and draped in a sterile fashion and a timeout consent form, she was blocked with 3 cc of 2% lidocaine plain and additional line 1: 100,000 epinephrine for hemostasis. Next a 15 blade was at the plantar incision below her IPJ left third toe. Sharp blunt dissection was used to cut through superficial and deep fascia. A 15 blade was sharply resect the plantar flexor tendons the plantar capsule to the joint. Under manual mentation, the toe was substantially straightened and substantially improved. Site was irrigated copiously with normal saline. Did closed the incision with 4-0 prolene with simple interrupted suture technique. Postop bandage applied with Betadine Adaptic 4 x 4 Kerlix Sam bandage. Follow-up 1 to 2 weeks to review. Vicodin for pain with a clean OARRS report and Keflex for injection prophylaxis. documented in this encounter [facility] 09-06-2022 Instructions Delisa Jett MA - 09/06/2022 3:13 PM EST Instructions for Post-Operative Care at Home *Keep the surgical area CLEAN and DRY. *DO NOT remove the bandage or inspect the wound. A normal amount of bleeding is to be expected in the surgical area. *Elevate the operated foot above your waist by placing pillows under your leg. *This will keep swelling to a minimum and decrease pain. *Wear the surgical shoe. DO NOT walk in socks. *Bend your knees and feet often to stimulate circulation. *For mild discomfort, take aspirin or Tylenol as directed on bottle, and agreed to by your primary care physician. *Take your oral temperature daily. Call our office if your temperature is over 100 degrees F. *Take antibiotic, pain or anxiety medication as prescribed. Eating beforehand can prevent nausea. *Eat a balanced diet, high in protein. *If constipated, take a laxative at bed time. *Make a post-op appointment before you leave the office today! *Call our office with any concerns* [place] [phone] [place] [phone] documented in this encounter [facility] 08-30-2022 History of Present illness Narrative Left 3rd toe pain Patient is a pleasant 77-year-old female with continued pain hammertoe with distal callus. She states that she is tried everything at this point. Been in padding splinting really not succeeding or doing well. She is in today thinking that perhaps surgery is her best option. 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 Needs to make sure that she is not absent and away from him for too long. She really pushes him to all of his doctors appointments takes him around. Physical Vascular: DP PT pulses are faintly palpable. CFT is fair no edema Derm: No open wounds no ulcers no rashes. Does have distal hyperkeratosis to her third toe some hyperkeratosis on third MPJ of the left toe. Neuro: Intact. Musculoskeletal: Muscle strength is 5/5 with fair tone. Contracture present at the PIPJ which is reducible and flexible, less so to the IJ and MPJ. Otherwise can easily wiggle toes. Does have pain entire digit. Otherwise can easily wiggle toes. Assessment plan: Patient is a pleasant 77-year-old female with reducible third digit hammertoe with the status and pain -Today went over surgical options. I did review her PVRs and ABIs which are triphasic. Traditionally would proceed with a hematoma. K wire fixation done due to patient's social constraints, she is not looking a traditional repair needs something that allows her to back to normal life very quickly. -Therefore as a backup surgical plan, would like proceed with a left third tenotomy capsulotomy in the next week to 2 weeks under local anesthesia in clinic. -Follow-up block. Low to moderate medical complexity decision making based on need for procedure review vascular studies and elevated morbidity. documented in this encounter [facility] 01-17-2022 History of Present illness Narrative [facility] RE[facility] DAILY TREATMENT NOTE Today's Date 01/17/2022 Patient Name: Christine Mays Date of : 1945 Current Visit #: 11 Authorized Visits: [id number] Case Name: Neck and Back History: Pre-Treatment Pain Scale: 3 Symptoms: stabilized Functional Diagnosis: 1. Neck pain 2. Chronic midline low back pain with sciatica, sciatica laterality unspecified Clinical Information: Subjective: Pt reports she has avg pain level, states she is ready for DC Objective 1 Pt reports she is able to amb for 20 min with UE support 2 Pt reports mod difficulty with uneven surfaces 3 Pt reports she is able to place smaller items on a shelf [place] 4 Pt reports she is able to carry most household items unrestricted 5 Pt is ind with ALD's and min difficulty 6 Pt reports ind with HEP but low compliance Treatments: Physical Therapy Exercise Log - 01/17/22 1447 OTHER Precautions/Contraindications Neck and Low Back Pain Notes [id number] Therapeutic Exercise (87356) Intervention Lena Sheila decompression 10 mins NT Parameters Supine Upper Cervical Flexion - 10 x Intervention Scap Retraction in decompression position - x 15 Parameters HS stretch 3x15'' Intervention wall angels x10 Parameters upper trap and levator stretches 20sec x3 Intervention SLR - 2x10 Parameters Bridges - 2x10 Intervention press ups/CCW/3# x10 Parameters IR stretch with strap 20" x3 Parameters Corner stretch - 15 sec x3 NT Intervention Rows, ext - 2x10 L3 Parameters supine BLE ER with YTB x20, HABD 20 PT Treatment Times Therex Total Time 40 Direct Treatment Time 40 Total Treatment Time 40 Goals: Physical Therapy Ortho Goals: MOBILITY: Patient will be able to ambulate for 45 minutes in community without difficulty in 6 weeks. MOBILITY: Patient will be able to ambulate on uneven surfaces without difficulty in 4 weeks. CARRYING/MOVING/HANDLING: Patient will be able to place items on a shelf overhead in 4 weeks CARRYING/MOVING/HANDLING: Patient will be able to carry 21-35 lbs in 6 weeks SELF CARE: Patient will be able to complete ADL's including bathing, dressing, and hair care without difficulty in 4 weeks. OTHER: Patient will be able to properly demonstrate independence with HEP in 2 weeks. Patient Education: Verbal HEP with patient verbalized understanding. Post-Treatment Pain Scale: 3 Assessment: Patient had an expected response to treatment. Skilled Intervention demonstrated by modifications of treatment per exercise log including assessment of patient's response and safety interventions per exercise log. Progress towards goals as expected. Plan for Next Visit: Treatment Visit with focus on progressing as tolerated Velasquez Najera PTA STATE LICENSE, [id number] documented in this encounter [facility] 01-15-2022 History of Present illness Narrative [facility] DAILY TREATMENT NOTE Today's Date 01/15/2022 Patient Name: Christine Mays Date of : 1945 Current Visit #: 10 Authorized Visits: [id number] Case Name: Neck and Back History: Pre-Treatment Pain Scale: neck and back is achy Symptoms: gradually improved Functional Diagnosis: 1. Neck pain 2. Chronic back pain, unspecified back location, unspecified back pain laterality Clinical Information: Subjective: patient reports a fall on Friday. She was trying to do some band exercise and fell backwards with hitting her head. Since that episode she had more tightness and soreness in back and neck muscles Objective Treatments: Physical Therapy Exercise Log - 01/15/22 1652 OTHER Precautions/Contraindications Neck and Low Back Pain Notes Visit 8: 3:25 - 3:58 Therapeutic Exercise (43733) Intervention Lena Sosa decompression 10 mins NT Parameters Supine Upper Cervical Flexion - 10 x Intervention Scap Retraction in decompression position - x 15 Intervention HS stretch in decompression position 3x15'' Intervention wall angels x10 Parameters Scifit L1 x 6min NT Intervention upper trap and levator stretches 20sec x3 Parameters SLR - 2x10 Intervention Bridges - 2x10 Parameters Corner stretch - 15 sec x3 Intervention Rows, ext - 2x10 L3 Parameters supine BLE ER with YTB x20 Intervention press ups/CCW/flexion 3# x10 Parameters IR stretch with strap 10sec x 10 Therapeutic Exercise (02949) Intervention IR and ER row x 10 orange band Goals: Physical Therapy Ortho Goals: MOBILITY: Patient will be able to ambulate for 45 minutes in community without difficulty in 6 weeks. MOBILITY: Patient will be able to ambulate on uneven surfaces without difficulty in 4 weeks. CARRYING/MOVING/HANDLING: Patient will be able to place items on a shelf overhead in 4 weeks CARRYING/MOVING/HANDLING: Patient will be able to carry 21-35 lbs in 6 weeks SELF CARE: Patient will be able to complete ADL's including bathing, dressing, and hair care without difficulty in 4 weeks. OTHER: Patient will be able to properly demonstrate independence with HEP in 2 weeks. Patient Education: Quality of movement and Verbal HEP with patient verbalized understanding. Post-Treatment Pain Scale: does not give number Assessment: Patient had an expected response to treatment. Needed some Verbal and visual commends for proper form of exercises with good return demo Skilled Intervention demonstrated by modifications of treatment per exercise log including decreased load, increased cueing, increased mobility, and assessment of patient's response and safety interventions per exercise log. Progress towards goals as expected. Plan for Next Visit: Treatment Visit with focus on continue to progress with UE endurance Maile Torres PT STATE LICENSE, [id number] documented in this encounter [facility] 01-10-2022 History of Present illness Narrative [facility] OUTPATIENT REHABILITATION DAILY TREATMENT NOTE Today's Date 01/10/2022 Patient Name: Christine Mays Date of : 1945 Current Visit #: 9 Authorized Visits: 199 Case Name: Neck and Back History: Pre-Treatment Pain Scale: 5 Symptoms: stabilized Functional Diagnosis: 1. Neck pain Clinical Information: Subjective: Pt. States there is soreness and pain in her back. Objective Treatments: Physical Therapy Exercise Log - 01/10/22 1525 OTHER Precautions/Contraindications Neck and Low Back Pain Notes Visit 8: 3:25 - 3:58 Therapeutic Exercise ([id number]) Intervention Lena Sheila decompression 10 mins NT Parameters Supine Upper Cervical Flexion - 10 x Intervention Scap Retraction in decompression position - x 15 Intervention HS stretch in decompression position 3x15'' Intervention wall angels x10 Parameters Scifit L1 x 6min Intervention upper trap and levator stretches 20sec x3 Parameters SLR - 2x10 Intervention Bridges - 2x10 Parameters Corner stretch - 15 sec x3 Intervention Rows, ext - 2x10 L3 Parameters supine BLE ER with YTB x20 Intervention press ups/CCW/flexion 3# x10 Parameters IR stretch with strap 10sec x 10 Therapeutic Exercise ([id number]) Intervention IR and ER row x 10 orange band PT Treatment Times Therex Total Time 33 Direct Treatment Time 33 Total Treatment Time 33 Goals: Physical Therapy Ortho Goals: MOBILITY: Patient will be able to ambulate for 45 minutes in community without difficulty in 6 weeks. MOBILITY: Patient will be able to ambulate on uneven surfaces without difficulty in 4 weeks. CARRYING/MOVING/HANDLING: Patient will be able to place items on a shelf overhead in 4 weeks CARRYING/MOVING/HANDLING: Patient will be able to carry 21-35 lbs in 6 weeks SELF CARE: Patient will be able to complete ADL's including bathing, dressing, and hair care without difficulty in 4 weeks. OTHER: Patient will be able to properly demonstrate independence with HEP in 2 weeks. Patient Education: Quality of movement with patient demonstrated understanding. Post-Treatment Pain Scale: 5 Assessment: Patient had an expected response to treatment. Skilled Intervention demonstrated by modifications of treatment per exercise log including increased load and safety interventions per exercise log. Progress towards goals as expected. Plan for Next Visit: Treatment Visit with focus on decreasing pain. MALINDA Lau No licensure found in state: [place] Supervised by a licensed TRANSPORTATION COORDINATOR Jamey Phillips, [place] [id number] documented in this encounter [facility] 01-09-2022 History of Present illness Narrative Subjective Chief Complaint Patient presents with Right Hand - Pain, New Patient Thumb pain Review of Systems Constitutional: Negative for chills, fatigue and fever. Eyes: Negative for visual disturbance. Respiratory: Negative for shortness of breath. Cardiovascular: Negative for chest pain. Gastrointestinal: Negative for abdominal pain and blood in stool. Endocrine: Negative for polydipsia. Genitourinary: Negative for hematuria. Musculoskeletal: Positive for arthralgias. Negative for myalgias. Neurological: Negative for seizures. Hematological: Does not bruise/bleed easily. Psychiatric/Behavioral: Negative for dysphoric mood. 01/09/22 Chief Complaint Patient presents with Right Hand - Pain, New Patient Thumb pain HPI: Christine is here today in follow up of her right hand. She has a couple issues: the first is her thumb, the other is her long finger. She has Dupuytren's in the long finger with no significant contracture. Her thumb bothers her frequently. She has had a couple corticosteroid injections. She has taken Meloxicam in the past as well. Past Medical History: Diagnosis Date Anxiety Arthritis Chronic low back pain Hypothyroidism Spinal stenosis Past Surgical History: Procedure Laterality Date BREAST REDUCTION CHOLECYSTECTOMY EXCISION PILONIDAL CYST FOOT SURGERY Right HYSTERECTOMY RELEASE TRIGGER FINGER Left Current Outpatient Medications: acetaminophen 500 MG tablet, Take 500 mg by mouth every 6 hours as needed for Mild Pain. For back pain, Disp: , Rfl: atenolol 25 MG tablet, Take 25 mg by mouth daily., Disp: , Rfl: levothyroxine 100 MCG tablet, Take 100 mcg by mouth daily., Disp: , Rfl: meloxicam 15 MG tablet, Take 15 mg by mouth daily., Disp: , Rfl: Propylene Glycol 0.6 % Solution, Three times a day., Disp: , Rfl: tizanidine 2 MG tablet, Take by mouth., Disp: , Rfl: traMADol 50 MG tablet, , Disp: , Rfl: traZODone 50 MG tablet, Take 50 mg by mouth at bedtime., Disp: , Rfl: triamterene-hydrochlorothiazide 75-50 MG tablet, Take by mouth At bedtime., Disp: , Rfl: Allergies Allergen Reactions Codeine Abdominal Discomfort and Dyspepsia Other reaction(s): Abdominal pain, Other (See Comments) Social History Socioeconomic History Marital status: Spouse name: Not on file Number of children: Not on file Years of education: Not on file Highest education level: Not on file Occupational History Not on file Tobacco Use Smoking status: Former Smoker Types: Cigarettes Quit date: 1950 Years since quittin.5 Smokeless tobacco: Never Used Vaping Use Vaping Use: Never used Substance and Sexual Activity Alcohol use: Yes Alcohol/week: 1.0 standard drink Types: 1 Glasses of wine per week Comment: Seldom Drug use: Never Sexual activity: Not on file Other Topics Concern Not on file Social History Narrative Not on file Social Determinants of Health Financial Resource Strain: Not on file Food Insecurity: Not on file Transportation Needs: Not on file Physical Activity: Not on file Stress: Not on file Social Connections: Not on file Intimate Partner Violence: Not on file Housing Stability: Not on file History reviewed. No pertinent family history. Review of Systems Constitutional: Negative for chills, fatigue and fever. Eyes: Negative for visual disturbance. Respiratory: Negative for shortness of breath. Cardiovascular: Negative for chest pain. Gastrointestinal: Negative for abdominal pain and blood in stool. Endocrine: Negative for polydipsia. Genitourinary: Negative for hematuria. Musculoskeletal: Positive for arthralgias. Negative for myalgias. Neurological: Negative for seizures. Hematological: Does not bruise/bleed easily. Psychiatric/Behavioral: Negative for dysphoric mood. Physical Examination: Vitals: 01/09/22 1303 Temp: 97.2 degrees F (36.2 degrees C) TempSrc: Temporal Weight: 64.2 kg (141 lb 9.6 oz) Height: 1.524 m (5') Extremity: On examination of the right upper extremity, she has tenderness at the base of the thumb and a positive grind maneuver. She is neurovascularly intact. Skin is warm and dry. She has a Dupuytren's cord in her palm in line with her long finger. No significant fracture. Diagnostic Studies: AP, oblique and lateral projections of the hand previously taken demonstrate advanced arthrosis of the basal joints bilaterally. Assessment: 1. 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 2. Dupuytren's contracture of her right hand, not bad enough that she desires intervention currently. Plan: She is going to try a [place] splint, potentially go back on Meloxicam. She has had injections in the past. She doesn't want surgery, as she helps care for her . I will see her back in 3 months and see how the bracing and/or Meloxicam has helped her. documented in this encounter [facility] 01-02-2022 History of Present illness Narrative [facility] OUTPATIENT REHABILITATION DAILY TREATMENT NOTE Today's Date 01/02/2022 Patient Name: Christine Mays Date of : 1945 Current Visit #: 7 Authorized Visits: 199 Case Name: Neck and Back History: Pre-Treatment Pain Scale: 5 Symptoms: stabilized Functional Diagnosis: 1. Neck pain Clinical Information: Subjective: Pt. States she has pain in her upper trap. Two nights ago the pain was so intense that she could not sleep. Raised her arms is the most painful. Objective Treatments: Physical Therapy Exercise Log - 01/02/22 1307 OTHER Precautions/Contraindications Neck and Low Back Pain Notes Visit 6: 13:07-13:46 Therapeutic Exercise ([id number]) Intervention Lena Sheila decompression 10 mins NT Parameters Supine Upper Cervical Flexion - 10 x Intervention Scap Retraction in decompression position - 10 x Parameters TrA activation 5 secs x 10 Intervention HS stretch in decompression position 3x15'' Parameters Lat straight arm pull down with TrA L1 2x10 NT Intervention Supine Straight leg press into table 3''x20 Parameters Scifit L1 x 6min Intervention upper trap and levator stretches 10x10'' Parameters SLR - 2x10 Intervention Bridges - 2x10 Parameters Corner stretch - 15 sec x3 Intervention Rows, ext - 2x10 L3 Parameters supine BLE ER with YTB x20 Intervention press ups/CCW/flexion 3# x10 Parameters IR stretch with strap 10sec x 10 Manual Therapy ([id number]) Intervention Towel Traction 30 secs x 6 - manual upper trap stretches 3x20" bilat. - NT Parameters C4-C7 upglides Gr III 5 mins - NT PT Treatment Times Therex Total Time 39 Direct Treatment Time 39 Total Treatment Time 39 Goals: Physical Therapy Ortho Goals: MOBILITY: Patient will be able to ambulate for 45 minutes in community without difficulty in 6 weeks. MOBILITY: Patient will be able to ambulate on uneven surfaces without difficulty in 4 weeks. CARRYING/MOVING/HANDLING: Patient will be able to place items on a shelf overhead in 4 weeks CARRYING/MOVING/HANDLING: Patient will be able to carry 21-35 lbs in 6 weeks SELF CARE: Patient will be able to complete ADL's including bathing, dressing, and hair care without difficulty in 4 weeks. OTHER: Patient will be able to properly demonstrate independence with HEP in 2 weeks. Patient Education: Quality of movement with patient demonstrated understanding. Post-Treatment Pain Scale: 5 Assessment: Patient had an expected response to treatment. Skilled Intervention demonstrated by modifications of treatment per exercise log including increased load and safety interventions per exercise log. Progress towards goals as expected. Plan for Next Visit: Treatment Visit with focus on decreasing back pain. Jamey Phillips PTA, [facility] STATE LICENSE, [id number] Supervised by a licensed TRANSPORTATION COORDINATOR Jamey Phillips, [place] [id number] documented in this encounter [facility] 12-31-2021 History of Present illness Narrative [facility] OUTPATIENT REHABILITATION DAILY TREATMENT NOTE Today's Date 12/31/2021 Patient Name: Christine Mays Date of : 1945 Current Visit #: 6 Authorized Visits: 199 Case Name: Neck and Back History: Pre-Treatment Pain Scale: 3 Symptoms: stabilized Functional Diagnosis: 1. Neck pain 2. Chronic low back pain with sciatica, sciatica laterality unspecified, unspecified back pain laterality Clinical Information: Subjective: she is very aware of her posture. Objective initiated supine ER with improved posture Treatments: Physical Therapy Exercise Log - 12/31/21 1524 OTHER Precautions/Contraindications Neck and Low Back Pain Notes Visit 5: 13:05-13;45 Therapeutic Exercise ([id number]) Intervention Lena Sheila decompression 10 mins NT Parameters Supine Upper Cervical Flexion - 10 x Intervention Scap Retraction in decompression position - 10 x Parameters TrA activation 5 secs x 10 Intervention HS stretch in decompression position 3x15'' Parameters Lat straight arm pull down with TrA L1 2x10 NT Intervention Supine Straight leg press into table 3''x20 Parameters Scifit L1 x 6min NT Intervention upper trap and levator stretches 10x10'' Parameters SLR - 2x10 Intervention Bridges - 2x10 Parameters Corner stretch - 15 sec x3 Intervention Rows, ext - 2x10 L3 NT Parameters supine BLE ER with YTB x20 Intervention press ups/CCW/flexion 3# x10 Manual Therapy ([id number]) Intervention Towel Traction 30 secs x 6 - manual upper trap stretches 3x20" bilat. - NT Parameters C4-C7 upglides Gr III 5 mins - NT PT Treatment Times Therex Total Time 40 Direct Treatment Time 40 Total Treatment Time 40 Goals: Physical Therapy Ortho Goals: MOBILITY: Patient will be able to ambulate for 45 minutes in community without difficulty in 6 weeks. MOBILITY: Patient will be able to ambulate on uneven surfaces without difficulty in 4 weeks. CARRYING/MOVING/HANDLING: Patient will be able to place items on a shelf overhead in 4 weeks CARRYING/MOVING/HANDLING: Patient will be able to carry 21-35 lbs in 6 weeks SELF CARE: Patient will be able to complete ADL's including bathing, dressing, and hair care without difficulty in 4 weeks. OTHER: Patient will be able to properly demonstrate independence with HEP in 2 weeks. Patient Education: Quality of movement with patient demonstrated understanding. Post-Treatment Pain Scale: 2 Assessment: Patient had an expected response to treatment. Skilled Intervention demonstrated by modifications of treatment per exercise log including increased load and safety interventions per exercise log. Progress towards goals as expected. Plan for Next Visit: Treatment Visit with focus on pain control and improved posture Andie Ryan PTA STATE LICENSE, [id number] documented in this encounter [facility] 12-28-2021 History of Present illness Narrative Images from the original note were not included. Established Patient Visit Yumiko Villarreal DPM Patient Name: Christine Mays. . Date of : 1945, 76 y.o.. Gender: female. Subjective: Patient is a pleasant 76-year-old female who presents to clinic concerned about drainage from her left great toenail. States that she had a pedicure done and then she noticed some discoloration to the toenail. She also would like to review her segmental arterial Doppler studies test results. Denies fevers, chills, nausea, vomiting, chest pain, shortness of breath, or any other constitutional symptoms. Physical Examination: BP 138/69 (BP Location: Right arm, Patient Position: Sitting, BP Cuff Size: Adult) Pulse 65 Temp 96.8 F (36 C) (Infrared) General Appearance: Alert, cooperative, no distress, appears stated age. Podiatric Exam Vascular: DP and PT pulses are full 1/4. Capillary refill time is brisk to distal digits. Skin temperature is warm to warm from proximal tibial tuberosity to distal digit. Neurological: Gross sensation is intact. Protective sensation is intact. Dermatologic: The left great toenail is discolored, with underlying subungual debris. No erythema, edema or any acute signs of infection. No drainage appreciated. Preulcerative lesions noted at the distal tuft of the left third toe and subfourth metatarsal head. Interdigital spaces are clean dry and intact. Musculoskeletal: Pain on palpation to the hyperkeratotic lesions of the left foot. Contracture deformity noted at the PIPJ of the third and fourth toes, and mildly to the second toe. Patient is able to wiggle digits ankle joint range of motion is intact. Generalized tenderness of second, third, fourth and fifth metatarsal heads, left foot. Muscle strength is 5/5 to dorsiflexors, plantar flexors, inverters and everters. Compartments soft and compressible. No calf pain Assessment: 1. Peripheral vascular disease, unspecified (HCC) 2. Acquired hammertoe of left foot 3. Onychomycosis 4. Toe pain, left Imaging Left foot 3 views weightbearing radiographs were previously ordered and interpreted as follows: Intact screw fixation for metatarsal base osteotomy correction of her bunion deformity. Degenerative changes to the PIPJ of the third and fourth toes. Medial subluxation of the second toe at the metatarsophalangeal joint Plan: Patient was seen and evaluated. Discussed all clinical findings. Discussed with patient that there is no concern for underlying infection to the left great toenail. Patient was educated that her toenail is fungal in nature but without any signs of infection. Reviewed patient's segmental arterial Doppler studies test results noting peripheral arterial disease however her perfusion is adequate for healing podiatric surgical intervention. In Patient has hammertoe deformities of the left third and fourth toes. The contracture of these does cause buildup of callus at the distal tuft of the left third toe and on the plantar aspect of the fourth metatarsal head. Re-discussed with patient elective surgical intervention to prevent recurrence of these painful calluses. Discussed performing a flexor tenotomy procedure in the office to remove the contracture of the third toe but it will minimal correct her deformities. I also discussed hammertoe arthroplasty procedure to the third and fourth toes. Patient is can planing proceeding with flexor tenotomy surgery at the next clinic visit. All questions were answered to patient satisfaction. Patient understands to call with any questions or concerns. Yumiko Villarreal DPM, MS Podiatric Physician & Surgeon documented in this encounter [facility] 12-26-2021 History of Present illness Narrative Images from the original note were not included. [facility] OUTPATIENT REHABILITATION DAILY TREATMENT NOTE Today's Date 12/26/2021 Patient Name: Christine Mays Date of : 1945 Current Visit #: 4 Authorized Visits: 199 Case Name: Neck and Back History: Pre-Treatment Pain Scale: 6 Symptoms: stabilized Functional Diagnosis: 1. Neck pain 2. Chronic low back pain with sciatica, sciatica laterality unspecified, unspecified back pain laterality Clinical Information: Subjective: Pt reports back hurting more today and is inconsistent with pain levels. Objective Treatments: Physical Therapy Exercise Log - 12/26/21 1440 OTHER Precautions/Contraindications Neck and Low Back Pain Notes Visit 3: 2:40 - 3:15 Therapeutic Exercise ([id number]) Intervention Lena Sheila decompression 10 mins Parameters Supine Upper Cervical Flexion - 10 x Intervention Scap Retration in decompression position - 10 x Parameters TrA activation 5 secs x 10 Intervention HS stretch in decompression position 3x15'' Parameters Lat straight arm pull down with TrA L1 2x10 Intervention Supine Straight leg press into table 3''x20 Parameters Scifit L1 x 3min - NT Intervention add upper trap and levator stretches NV Parameters SLR - x10 Intervention Bridges - x10 Parameters Corner stretch - 15 sec x3 Intervention Rows, ext - x10 L2 Manual Therapy ([id number]) Intervention Towel Traction 30 secs x 6 - manual upper trap stretches 3x20" bilat. - NT Parameters C4-C7 upglides Gr III 5 mins - NT PT Treatment Times Therex Total Time 23 Direct Treatment Time 23 Total Treatment Time 35 concurrent [place] [facility] RE[facility] TREAT[facility]:[id number]} Goals: Physical Therapy Ortho Goals: MOBILITY: Patient will be able to ambulate for 45 minutes in community without difficulty in 6 weeks. MOBILITY: Patient will be able to ambulate on uneven surfaces without difficulty in 4 weeks. CARRYING/MOVING/HANDLING: Patient will be able to place items on a shelf overhead in 4 weeks CARRYING/MOVING/HANDLING: Patient will be able to carry 21-35 lbs in 6 weeks SELF CARE: Patient will be able to complete ADL's including bathing, dressing, and hair care without difficulty in 4 weeks. OTHER: Patient will be able to properly demonstrate independence with HEP in 2 weeks. Patient Education: Quality of movement with patient demonstrated understanding. Post-Treatment Pain Scale: 6 Assessment: Patient had an expected response to treatment. Skilled Intervention demonstrated by modifications of treatment per exercise log including increased load and safety interventions per exercise log. Progress towards goals as expected. Plan for Next Visit: Treatment Visit with focus on core strengthening and postural strengthening Jamey Phillips PTA STATE LICENSE, [id number] documented in this encounter [facility] 12-18-2021 History of Present illness Narrative [facility] OUTPATIENT REHABILITATION DAILY TREATMENT NOTE Today's Date 12/18/2021 Patient Name: Christine Mays Date of : 1945 Current Visit #: 3 Authorized Visits: 199 Case Name: Neck and Back History: Pre-Treatment Pain Scale: 4 Symptoms: gradually improved Functional Diagnosis: 1. Neck pain 2. Chronic low back pain, unspecified back pain laterality, unspecified whether sciatica present Clinical Information: Subjective: Pt states her neck and shoulders have been feeling better overall but she has been having a lot of tension in the upper traps. Objective Provided written HEP handouts consisting of supine scap retractions, abd bracing, supine HS stretch, SL press into table and breathing w/ pelvic tilts. Treatments: Physical Therapy Exercise Log - 12/18/21 1603 OTHER Precautions/Contraindications Neck and Low Back Pain Notes Visit 2: 4:05 - 4:45 Therapeutic Exercise ([id number]) Intervention Lena Sheila decompression 10 mins Parameters Supine Upper Cervical Flexion - 10 x Intervention Scap Retration in decompression position - 10 x Parameters TrA activation 5 secs x 10 Intervention HS stretch in decompression position 3x15'' Parameters Lat straight arm pull down with TrA L1 2x10 Intervention Supine Straight leg press into table 3''x20 Parameters Scifit L1 x 3min - NT Intervention add upper trap and levator stretches NV Manual Therapy ([id number]) Intervention Towel Traction 30 secs x 6 - manual upper trap stretches 3x20" bilat. Parameters C4-C7 upglides Gr III 5 mins PT Treatment Times Therex Total Time 28 Manual Therapy Total Time 12 Direct Treatment Time 40 Total Treatment Time 40 [place] [facility] RE[facility] T[facility]AT[facility]:[id number]} Goals: Physical Therapy Ortho Goals: MOBILITY: Patient will be able to ambulate for 45 minutes in community without difficulty in 6 weeks. MOBILITY: Patient will be able to ambulate on uneven surfaces without difficulty in 4 weeks. CARRYING/MOVING/HANDLING: Patient will be able to place items on a shelf overhead in 4 weeks CARRYING/MOVING/HANDLING: Patient will be able to carry 21-35 lbs in 6 weeks SELF CARE: Patient will be able to complete ADL's including bathing, dressing, and hair care without difficulty in 4 weeks. OTHER: Patient will be able to properly demonstrate independence with HEP in 2 weeks. Patient Education: Quality of movement, Written HEP, and Diagnosis and recovery specific education with patient verbalized understanding. Post-Treatment Pain Scale: 3 Assessment: Patient had an expected response to treatment. Skilled Intervention demonstrated by modifications of treatment per exercise log including decreased volume and assessment of patient's response and safety interventions per exercise log. Progress towards goals as expected. Plan for Next Visit: Treatment Visit with focus on flexibility and muscle relaxation Cesar Santos PT State License, [id number] documented in this encounter [facility] 12-12-2021 History of Present illness Narrative [facility] OUTPATIENT REHABILITATION DAILY TREATMENT NOTE Today's Date 12/12/2021 Patient Name: Christine Mays Date of : 1945 Current Visit #: 2 Authorized Visits: [id number] Case Name: Neck and Back History: Pre-Treatment Pain Scale: 6 Symptoms: stabilized Functional Diagnosis: 1. Neck pain 2. Chronic low back pain with sciatica, sciatica laterality unspecified, unspecified back pain laterality Clinical Information: Subjective: Pt reports she was very sore this morning but is feeling better now Objective Treatments: Physical Therapy Exercise Log - 12/12/21 1620 OTHER Precautions/Contraindications Neck and Low Back Pain Notes Visit 1 1306-2370 Therapeutic Exercise (72664) Intervention Lena Sheila decompression 10 mins Parameters Supine Upper Cervical Flexion - 10 x Intervention Scap Retration in decompression position - 10 x Parameters TrA activation 5 secs x 10 Intervention HS stretch in decompression position 3x15'' Parameters Lat straight arm pull down with TrA L1 2x10 Intervention Supine Straight leg press into table 3''x20 Parameters Scifit L1 x 3min Manual Therapy (59928) Intervention Towel Traction 30 secs x 6 Parameters C4-C7 upglides Gr III 5 mins PT Treatment Times Therex Total Time 27 Direct Treatment Time 27 Total Treatment Time 27 [place] [facility] REH[facility] TREATMENTS:15583} Goals: Physical Therapy Ortho Goals: MOBILITY: Patient will be able to ambulate for 45 minutes in community without difficulty in 6 weeks. MOBILITY: Patient will be able to ambulate on uneven surfaces without difficulty in 4 weeks. CARRYING/MOVING/HANDLING: Patient will be able to place items on a shelf overhead in 4 weeks CARRYING/MOVING/HANDLING: Patient will be able to carry 21-35 lbs in 6 weeks SELF CARE: Patient will be able to complete ADL's including bathing, dressing, and hair care without difficulty in 4 weeks. OTHER: Patient will be able to properly demonstrate independence with HEP in 2 weeks. Patient Education: Verbal HEP with patient verbalized understanding. Post-Treatment Pain Scale: 6 Assessment: Patient had an expected response to treatment. Skilled Intervention demonstrated by modifications of treatment per exercise log including assessment of patient's response and safety interventions per exercise log. Progress towards goals as expected. Plan for Next Visit: Treatment Visit with focus on progressing Velasquez Najera PTA STATE LICENSE, [id number] documented in this encounter [facility] 12-10-2021 History of Present illness Narrative [facility] OUTPATIENT REHABILITATION Evaluation Today's Date 12/10/2021 Patient Name: Christine Mays Date of : 1945 Case Name: Neck and Back Functional Diagnosis: 1. Neck pain 2. Upper back pain Clinical Information: Subjective History of Present Illness Subjective History: Patient reports chronic neck and low back pain. She reports that she has done PT before and continues some of her exercises but has not had significant relief. She reports low back surgery in the her teens to early twenties without PT following. She reports that pain has progressing over the last several years. Prior PT for low back pain at [place] told her to do standing lumbar extension which she was instructed to discontinue to her L4-L5 Spondy. Previous Imaging: MRI, CT and X-ray Pain Scale Pain location: neck and lumbar spine Average Pain: 4/10 Pain at highest: 8/10 Aggravating factors: standing, lifting, walking long periods of time Personal Goals: Decrease pain and improve function Red Flags: None Comments: Barriers to Care: None Fall risk screening Fallen 2 or more times in the last 12 months: No Injured as a result of a fall in the last 12 months: No Cervical Spine: Range of Motion - Cervical Protraction Loss: 50% Retraction Loss: 50% Flexion Loss: 25% Extension Loss: 25% Rt Rotation Loss: 25% Lt Rotation Loss: 50% Rt Side Bend Loss: 50% Lt. Side Bend Loss: 50% Muscle Strength Shoulder Shrug: Right: 4 Left: 4 Shoulder Abduction: Right: 4 Left: 4 Bicep: Right: 4 Left: 4 Tricep: Right: 4 Left: 4 Wrist Flexion: Right: 4 Left: 4 Wrist Extension: Right: 4 Left: 4 Digit Abduction: Right: 4 Left: 4 Special Tests Spurling Right: Negative Left:Negative Alar ligament: Negative Sharp Shanna: Negative Lumbar Spine Gait: antalgic Posture: rounded shoulders posture and accentuated lordosis Trunk AROM: Movement Loss % of Loss Description Flexion 50% Extension 75% Side Gliding R 50% Side Gliding L 50% Dermatomes Sensation: grossly intact Special Tests Slump Right: no Slump R Left: no Slump L SLR Right: no SLR R Left: no SLR L Test for piriformis syndrome Right: no Piriformis Syndrome R Left: no Piriformis syndrome L Treatments: Physical Therapy Exercise Log - 12/10/21 1529 OTHER Precautions/Contraindications Neck and Low Back Pain Therapeutic Exercise (37285) Intervention Lena Sheila decompression 10 mins Parameters Supine Upper Cervical Flexion - 10 x Intervention Scap Retration in decompression position - 10 x Parameters TrA activation 5 secs x 10 Intervention HS stretch in decompression position Parameters Lat straight arm pull down with TrA Manual Therapy (95833) Intervention Towel Traction 30 secs x 6 Parameters C4-C7 upglides Gr III 5 mins PT Treatment Times Total Treatment Time 45 [place] [facility] REHAB TREATMENTS:69591} Treatment Plan: Frequency of Visits: twice per week Duration: 6 weeks Interventions: Therapeutic Exercise (42518), Neuromuscular Re-Education (46244), and Manual Therapy (72737) Rehab Potential: fair Goals: Physical Therapy Ortho Goals: MOBILITY: Patient will be able to ambulate for 45 minutes in community without difficulty in 6 weeks. MOBILITY: Patient will be able to ambulate on uneven surfaces without difficulty in 4 weeks. CARRYING/MOVING/HANDLING: Patient will be able to place items on a shelf overhead in 4 weeks CARRYING/MOVING/HANDLING: Patient will be able to carry 21-35 lbs in 6 weeks SELF CARE: Patient will be able to complete ADL's including bathing, dressing, and hair care without difficulty in 4 weeks. OTHER: Patient will be able to properly demonstrate independence with HEP in 2 weeks. Patient Education provided: HEP and POC Clinical Impression: CPT Code 51136 Low 59163 Moderate 21081 High History 0 1-2 3+ Comorbidities: chronic pain and OA, Personal factors: age and chronicity or severity of the current condition x Examination of body systems (elements of body structures & functions, activity limitations, and/or participation restrictions) 1-2 elements 3+ elements 4+ elements See below clinical impression x Clinical Presentation Stable Evolving Unstable As evidenced by reproduction of or changes in symptoms with certain movements x Decision Making Low (FOTO >/= 69) Moderate (FOTO 34 - 68) High (FOTO </= 33) FOTO score= 38 x Pt is a 76 y.o. female who presents to PT services with c/o neck and low back pain. Upon assessment, pt has been found with the following impairments: impaired posture, decreased ROM, decreased strength, and pain. 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 The pt would benefit from skilled PT services focused on the above listed impairments and limitations in order to safely progress pt to their desired level of function. Pt to be discharged from OP PT services if/when goals are met, if they fail to make progress with conservative management in PT, if their level of progress plateaus, or if they do not maintain compliance with attendance or HEP. At this time, it is my clinical judgment that services are medically necessary. Goran Avila PT STATE LICENCE, [id number] documented in this encounter [facility] 11-13-2021 History of Present illness Narrative Patient is here for evaluation of upper back pain.Patient reports that her symptoms started about 3 weeks ago. She started Silver sneakers and has been working out more than usual. She started to have pain in the upper back/lower neck. Pain radiates to bilateral shoulders. She is unable to hook her close in the back. Has been under distress due to this pain. She has had arthritis in the neck. Wonders reports worsening.Plan:Concerning for nerve root impingement/disc prolapse. X-rays ordered for further evaluation. Recommended physical therapy which patient is willing to participate. Physical therapy referral is provided. Patient has tizanidine and tramadol prescription. She will use as needed.Follow-up in 8 weeks to reassess. -[facility] Work Phone: 10-19-2021 History of Present illness Narrative Associated Order(s): SM Jt Injection/Arthrocentesis: R thumb MCP Post-Procedure Diagnose(s): Arthritis of carpometacarpal (CMC) joint of right thumb SM Jt Injection/Arthrocentesis: R thumb MCP Performed by: Amanda Marcelino CNP Authorized by: Amanda Marcelino CNP CPT 27906 - Small Joint Arthrocentesis: Consent given by: Patient Time out: Immediately prior to the procedure a time out was called Physician or proceduralist has discussed critical or nonroutine steps, procedure duration and anticipated blood loss: Yes Supporting Documentation: Indications: Pain, joint swelling and diagnostic evaluation Procedure Details: Location: Thumb Site: R thumb MCP Prep: patient was prepped and draped in usual sterile fashion Needle size: 25 G Approach: Dorsal Medications: 40 mg triamcinolone acetonide 40 mg/mL Anesthetic used:: Lidocaine 1% Anesthetic amount (mL): 1 Patient tolerance: Patient tolerated the procedure well with no immediate complications [facility] [address] [facility] [address] [facility] [id number] Chief Complaint Patient presents with Right Hand - Pain Christine Mays returns to the office today for an injection to the right CMC joint. She has had these in the past and they do provide her with adequate pain relief. She is not sure if she is quite ready to discuss any type of surgical intervention for it. She is also complaining of right hand pain. She denies any injury or significant change to the right hand since her last visit. The patient's past medical history, surgical history, social history, family history, medications and allergies were reviewed with the patient today and are available in the chart for further review. Allergies Allergen Reactions Codeine Other (See Comments) Current Outpatient Medications: atenoloL (TENORMIN) 25 MG tablet, Take 25 mg by mouth daily ., Disp: , Rfl: levothyroxine (SYNTHROID, LEVOTHROID) 112 MCG tablet, Take 112 mcg by mouth once daily ., Disp: , Rfl: LORazepam (ATIVAN) 0.5 MG tablet, Take 0.5 mg by mouth as needed ., Disp: , Rfl: meloxicam (MOBIC) 15 MG tablet, Take 1 (one) tablet (15 mg total) by mouth daily ., Disp: 30 tablet, Rfl: 2 meloxicam (MOBIC) 15 MG tablet, Take 1 (one) tablet (15 mg total) by mouth daily ., Disp: 90 tablet, Rfl: 0 tiZANidine (ZANAFLEX) 2 MG tablet, Take 1 Unspecified by mouth ., Disp: , Rfl: traZODone (DESYREL) 50 MG tablet, Take 50 mg by mouth nightly ., Disp: , Rfl: triamterene-hydrochlorothiazide (MAXZIDE) 75-50 mg per tablet, Takes 1/2 tablet po daily., Disp: , Rfl: HYDROcodone-acetaminophen (NORCO) 5-325 mg per tablet, Take 1 Unspecified by mouth ., Disp: , Rfl: traMADol (ULTRAM) 50 mg tablet, Take 50 mg by mouth as needed for pain ., Disp: , Rfl: Past Medical History: Diagnosis Date Anxiety Chronic back pain DDD (degenerative disc disease), lumbar Disease of thyroid gland Headache, tension-type Spinal stenosis Past Surgical History: Procedure Laterality Date BREAST REDUCTION CHOLECYSTECTOMY FOOT SURGERY Right HYSTERECTOMY PILONIDAL CYST TRIGGER FINGER RELEASE Left Social History Socioeconomic History Marital status: Tobacco Use Smoking status: Former Smoker Packs/day: 0.50 Smokeless tobacco: Never Used Vaping Use Vaping Use: Never used Substance and Sexual Activity Alcohol use: Yes Comment: wine rarely Drug use: No Imaging: No new imaging, reviewed from prior visit. Assessment/Plan: Injection to the right CMC joint per patient request. I did this complications and she tolerated this well. She does have Dupuytren's contracture on the right palm. We discussed possible cortisone injections for that but I am going to send her to a hand specialist to discuss other treatment options for the Dupuytren's. I am more than happy to see her back as needed. She is able to have these injections to the CMC joint every 3 months if needed. She does verbalize understanding is in agreement with the treatment plan. documented in this encounter [facility] 10-02-2021 History of Present illness Narrative Patient continues to have her hand pain. Was seen in Ortho and was provided steroid injections. Reports that her pain continues to worsen. She has an appointment with Ortho this afternoon. She will discuss further case with them.Right shoulder pain started about 3 months ago when she is trying to reach something in the back. Since then her pain has slowly been worsening. Hard to reach out to things. Will discuss with Ortho.Left foot pain from callus. Was seen by podiatry. Planning to do a procedure soon.Anxiety: Stable under control takes medication regularly.HTN: Patient reports that she takes medications regularly.Blood pressure is elevated today. Denies any symptoms of chest pain, palpitations or shortness of breath.Pain controlled with tramadol.Follow up in 3 months.Discontinuing Lorazepam and initiating Tramadol higher dose for pain control.I have personally reviewed the OARRS report for CHRISTINE MAYS. I have considered the risks of abuse, dependence, addiction and diversion.I have the following concerns: no.Is the patient prescribed a combination of a benzodiazepine and opioid? Yes.Uses meds on an as needed basis. Does not take them at the same time. Opioid is for her chronic pain and benzo is for her anxiety. Risks, benefits and alternatives have been discussed w/ pt - pt ok w/ current meds she is on, as her chronic pain and anxiety are controlled. Rx for narcan has been sent to pharm - pt counseled on how to use and when to use itLast urine drug screening date/ordered today: 06/18/21Results of last screen: Results as expected.Date of the last Controlled Substance Agreement: 06/18/21OPIOIDWhat is the patient s goal of therapy? back pain control.Is this being achieved with current treatment? yes.Attestation statement: I feel that it is clinically indicated to continue this current medication regimen after consideration of alternative therapies, and other non-opioid treatments.Opioid Risk Screening:Opioid Risk ToolLast opioid risk screening date/ordered today: 10/02/2021Family history of substance abuse: Alcohol = 1Patient's total score is 1, within range of Low Risk (<= 3).Pain Scale Screening:Pain Assessment and Documentation Tool (PADT)Date of Assessment: 10/02/2021nalgesia:Patient reports her pain level on average during the past week is 6 on a 0 - 10 scale.Patient reports that her pain level at its worst during the past week was 9 on a 0 -10 scale.50% % of pain has been relieved during the past week per patientPatient states that the amount of pain relief she is now obtaining from her current pain reliever(s) is enough to make a real difference in her life.Query to clinician: Is the patient's pain relief clinically significant? YesActivities of Daily Living:Physical functioning: WorseFamily relationships: SameSocial relationships: SameMood: SameSleep patterns: SameOverall functioning: SameAdverse Events:No, CHRISTINE MAYS is not experiencing side effects from current pain reliever.Patients overall severity of side effect: NoneIs your overall impression that this patient is benefiting (e.g., benefits, such as pain relief, outweigh side effects) from opioid therapy? Yes.I have calculated the patient's Morphine Dose Equivalent (MED):I have considered referral to Pain Management and/or a specialist, and do not feel it is necessary at this time.BENZODIAZEPINESWhat is the patient s goal of therapy? control anxiety. [facility] Work Phone: 09-04-2021 History of Present illness Narrative Images from the original note were not included. Established Patient Visit Yumiko Villarreal DPM Patient Name: Christine Mays. . Date of : 1945, 76 y.o.. Gender: female. Subjective: Patient is a pleasant 76-year-old female who presents to clinic complaining of left foot callus pain at the third toe on the bottom of her left foot. This has been ongoing for several years. Patient states that she uses Dr. Phan's corn pads and does go to nail salon to help removal of callus. However, she states that her pain has worsened significantly and is going on a trip to [place] where she is hoping to be able to walk without significant pain. She admits to having left foot surgery in the past with Dr. Lester and Dr. Macdonald for bunion and left second hammertoe. No other pedal complaints at this time. Denies fevers, chills, nausea, vomiting, chest pain, shortness of breath, or any other constitutional symptoms. Physical Examination: BP (!) 156/84 (BP Location: Left arm) Comment: pt was talking - a bit stressed Pulse 63 Temp 97.7 F (36.5 C) (Oral) General Appearance: Alert, cooperative, no distress, appears stated age. Podiatric Exam Vascular: DP and PT pulses are full 2/4. Capillary refill time is brisk to distal digits. Skin temperature is warm to warm from proximal tibial tuberosity to distal digit. Neurological: Gross sensation is intact. Protective sensation is intact. Dermatologic: A large hyperkeratotic lesion is noted at the distal tuft of the left third toe and subfourth metatarsal head. Upon debridement of lesion, no underlying ulceration noted. Interdigital spaces are clean dry and intact. Musculoskeletal: Pain on palpation to the hyperkeratotic lesions of the left foot. Contracture deformity noted at the PIPJ of the third and fourth toes, and mildly to the second toe. Patient is able to wiggle digits ankle joint range of motion is intact. Generalized tenderness of second, third, fourth and fifth metatarsal heads, left foot. Muscle strength is 5/5 to dorsiflexors, plantar flexors, inverters and everters. Compartments soft and compressible. No calf pain Assessment: 1. Acquired hammertoe of left foot 2. Metatarsalgia, left foot 3. Corns and callus 4. Left foot pain Plan: Patient was seen and evaluated. Discussed all clinical findings Patient has hammertoe deformities of the left third and fourth toes. The contracture of this does cause buildup of callus at the distal tuft of the left third toe and on the plantar aspect of the fourth metatarsal head. Discussed with patient elective surgical intervention to prevent recurrence of these painful calluses. Discussed performing a flexor tenotomy procedure in the office to remove the contracture of the third toe. I also discussed hammertoe arthroplasty procedure to the third and fourth toes. She will think about these options after her [place] trip. In the meantime, a #15 blade is utilized to debride the large hyperkeratotic lesion at the distal tuft of the left third toe and to the plantar aspect of fourth metatarsal head. Patient expressed pain relief from the procedure. A metatarsal pad was placed just the fourth metatarsal head to offload the site. Patient is to follow-up in 2 weeks for evaluation and new x-rays of the left foot. Yumiko Villarreal DPM, MS Podiatric Physician & Surgeon documented in this encounter [facility] 07-16-2021 History of Present illness Narrative Associated Order(s): SM Jt Injection/Arthrocentesis: R thumb MCP Post-Procedure Diagnose(s): Arthritis of carpometacarpal (CMC) joint of right thumb SM Jt Injection/Arthrocentesis: R thumb MCP Performed by: Amanda Marcelino CNP Authorized by: Amanda Marcelino CNP CPT 08529 - Small Joint Arthrocentesis: Consent given by: Patient Time out: Immediately prior to the procedure a time out was called Physician or proceduralist has discussed critical or nonroutine steps, procedure duration and anticipated blood loss: Yes Supporting Documentation: Indications: Pain, joint swelling and diagnostic evaluation Procedure Details: Location: Thumb Site: R thumb MCP Prep: patient was prepped and draped in usual sterile fashion Needle size: 25 G Approach: Dorsal Medications: 10 mg triamcinolone acetonide 10 mg/mL Anesthetic used:: Lidocaine 1% Anesthetic amount (mL): 1 Patient tolerance: Patient tolerated the procedure well with no immediate complications Christine Mays 1945 CC: 76 y.o. is a she with right hand pain. Chief Complaint Patient presents with Right Hand - Pain . HPI: The patient presents to the office with right hand pain. She reports that her pain is mostly in the thumb area. She has been having periods of sharp hot pain in the thumb, randomly, for the past couple of weeks or so. She denies any injury to the hand. The pain is right below the thumb. She does notice things are more difficult and painful to grab with the hand. She has tried otc pain medications which only provide her with moderate relief. She also uses a splint at bedtime for her carpal tunnel and thinks that its help the thumb pain too. She reports this pain is different than the carpal tunnel symptoms she used to have. PMH: Allergies Allergen Reactions Codeine Current Outpatient Medications: atenoloL (TENORMIN) 25 MG tablet, Take 25 mg by mouth daily ., Disp: , Rfl: HYDROcodone-acetaminophen (NORCO) 5-325 mg per tablet, Take 1 Unspecified by mouth ., Disp: , Rfl: levothyroxine (SYNTHROID, LEVOTHROID) 112 MCG tablet, Take 112 mcg by mouth once daily ., Disp: , Rfl: LORazepam (ATIVAN) 0.5 MG tablet, Take 0.5 mg by mouth as needed ., Disp: , Rfl: meloxicam (MOBIC) 15 MG tablet, Take 1 (one) tablet (15 mg total) by mouth daily ., Disp: 30 tablet, Rfl: 2 tiZANidine (ZANAFLEX) 2 MG tablet, Take 1 Unspecified by mouth ., Disp: , Rfl: traMADol (ULTRAM) 50 mg tablet, Take 50 mg by mouth as needed for pain ., Disp: , Rfl: traZODone (DESYREL) 50 MG tablet, Take 50 mg by mouth nightly ., Disp: , Rfl: triamterene-hydrochlorothiazide (MAXZIDE) 75-50 mg per tablet, Takes 1/2 tablet po daily., Disp: , Rfl: Past Medical History: Diagnosis Date Anxiety Chronic back pain DDD (degenerative disc disease), lumbar Disease of thyroid gland Headache, tension-type Spinal stenosis Past Surgical History: Procedure Laterality Date BREAST REDUCTION CHOLECYSTECTOMY FOOT SURGERY Right HYSTERECTOMY PILONIDAL CYST TRIGGER FINGER RELEASE Left Social History Socioeconomic History Marital status: Tobacco Use Smoking status: Former Smoker Packs/day: 0.50 Smokeless tobacco: Never Used Vaping Use Vaping Use: Never used Substance and Sexual Activity Alcohol use: Yes Comment: wine rarely Drug use: No ROS: Review of Systems Constitutional: Negative for activity change and fatigue. HENT: Negative for congestion, hearing loss and trouble swallowing. Eyes: Negative for visual disturbance. Respiratory: Negative for chest tightness and shortness of breath. Cardiovascular: Negative for chest pain and palpitations. Gastrointestinal: Negative for abdominal pain, diarrhea, nausea and vomiting. Endocrine: Negative for polydipsia, polyphagia and polyuria. Genitourinary: Negative for decreased urine volume, difficulty urinating and hematuria. Musculoskeletal: Positive for arthralgias and joint swelling. Negative for myalgias. Skin: Negative for color change, rash and wound. Allergic/Immunologic: Negative for immunocompromised state. Neurological: Negative for dizziness, weakness, light-headedness and numbness. Hematological: Does not bruise/bleed easily. Psychiatric/Behavioral: Negative for confusion and sleep disturbance. The patient is not nervous/anxious. PE: Physical Exam Constitutional: Appearance: She is well-developed and well-nourished. HENT: Head: Normocephalic. Eyes: Pupils: Pupils are equal, round, and reactive to light. Cardiovascular: Rate and Rhythm: Normal rate and regular rhythm. Pulmonary: Effort: Pulmonary effort is normal. Breath sounds: Normal breath sounds. Abdominal: General: Bowel sounds are normal. Palpations: Abdomen is soft. Musculoskeletal: General: Swelling and tenderness present. Normal range of motion. Cervical back: Normal range of motion and neck supple. Skin: General: Skin is warm and dry. Neurological: Mental Status: She is alert and oriented to person, place, and time. 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 +Ceferinoklestein Imaging:L Hand:1st, 2nd and 3rd metacarpophalangeal joint space narrowing. There is radiocarpal, intercarpal and 1st carpometacarpal joint space narrowing. There is a prominent subchondral cyst at the articular surface of the distal radius. There is also particular bony remodeling and osteophyte formation at the 1st carpometacarpal joint. Plan: After examination and reviewing of the patient x-ray images, I offered her a cortisone injection to the right cmc joint which she gladly accepted. I did this without complications and she tolerated this well. I am happy to see her back in the office if no improvement in 2 weeks. Diagnosis: Problem List None Amanda Marcelino CNP documented in this encounter [facility] 06-18-2021 History of Present illness Narrative Patient reports that she has pain in her hand joints. Concern about rheumatoid arthritis.Anxiety: Stable under control takes medication regularly.HTN: Patient reports that she takes medications regularly.Blood pressure is elevated today. Denies any symptoms of chest pain, palpitations or shortness of breath.11 to 12 an 5-6 pmLorazepam at bedtime - 10:30 to 11pm.Follow up in 3 months.Discontinuing Lorazepam and initiating Tramadol higher dose for pain control.I have personally reviewed the [place]AR[place] report for CHRISTINE MAYS. I have considered the risks of abuse, dependence, addiction and diversion.I have the following concerns: no.Is the patient prescribed a combination of a benzodiazepine and opioid? Yes.Uses meds on an as needed basis. Does not take them at the same time. Opioid is for her chronic pain and benzo is for her anxiety. Risks, benefits and alternatives have been discussed w/ pt - pt ok w/ current meds she is on, as her chronic pain and anxiety are controlled. Rx for narcan has been sent to pharm - pt counseled on how to use and when to use itLast urine drug screening date/ordered today: 06/18/21Results of last screen: Results as expected.Date of the last Controlled Substance Agreement: 06/18/21OPIOIDWhat is the patient s goal of therapy? back pain control.Is this being achieved with current treatment? yes.Attestation statement: I feel that it is clinically indicated to continue this current medication regimen after consideration of alternative therapies, and other non-opioid treatments.Opioid Risk Screening:Opioid Risk ToolLast opioid risk screening date/ordered today: 08/30/2020Family history of substance abuse: Alcohol = 1Patient's total score is 1, within range of Low Risk (<= 3).Pain Scale Screening:Pain Assessment and Documentation Tool (PADT)Date of Assessment: 06/18/21Analgesia:Patient reports her pain level on average during the past week is 8 on a 0 - 10 scale.Patient reports that her pain level at its worst during the past week was 10 on a 0 -10 scale.50% % of pain has been relieved during the past week per patientPatient states that the amount of pain relief she is now obtaining from her current pain reliever(s) is enough to make a real difference in her life.Query to clinician: Is the patient's pain relief clinically significant? YesActivities of Daily Living:Physical functioning: WorseFamily relationships: SameSocial relationships: SameMood: SameSleep patterns: SameOverall functioning: SameAdverse Events:No, CHRISTINE MAYS is not experiencing side effects from current pain reliever.Patients overall severity of side effect: NoneIs your overall impression that this patient is benefiting (e.g., benefits, such as pain relief, outweigh side effects) from opioid therapy? Yes.I have calculated the patient's Morphine Dose Equivalent (MED):I have considered referral to Pain Management and/or a specialist, and do not feel it is necessary at this time.BENZODIAZEPINESWhat is the patient s goal of therapy? control anxiety. [facility] Work Phone: 04-13-2021 History of Present illness Narrative Nail and callus care Patient is a pleasant 76-year-old female who comes in today for nail and callus care. States that she has 2 painful calluses below her third and fourth toes. Has had work previously done. Additionally states that her nails are getting thicker sore and painful. Comes in today to have this addressed. Physical Vascular: DP pulses are palpable 1 out of 4 bilaterally. PT pulses are nonpalpable.. CFT is delayed with mild foot and ankle edema. Skin is shiny atrophic and dysvascular. Nails left foot [id number] and right foot 95559 are elongated thickened mycotic crumbling dystrophic. Hyperkeratosis present to the plantar third MPJ fourth MPJ. No open wounds no ulcers no rashes no deep nodules. Can easily wiggle toes not any clicking or catching. Mild hammertoe and curling present. 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 -Given her arterial disease she does qualify for nail care and callus care. Procedure: Calluses: 2 calluses were sharply debrided and debulked in height and width with a 15 blade consistent with a q8 modifier. Nail care: Nails left foot [id number] and right foot nails 97590 are sharply debrided and debulk in height and length with a sharp around nail nipper consistent with a q8 modifier. Follow-up in 3 months for foot nail care documented in this encounter [facility] 03-27-2021 History of Present illness Narrative s/p 03/27/21R GSV VENASEAL AND RETICULAR FOAM SCLERO X2Pt doing well. States she did have some tenderness along inner lower portion of her right thigh and lower right inner ankle. Denies any fever or chills. Denies any chest pain or SOBGeneral: Alert and oriented responsiveEyes: No icterusNeck: No scars no bruitsNeurological: Upper extremity and lower extremity strength +5 out of 5, gait and cognition and speech within normal limitsHeart: Regular rate and rhythmLungs: ClearAbdomen: Soft nontender no palpable masses or aneurysmVascular: Normal 2+ upper extremity pulses, normal 2+ lower extremity pulsesmultiple area of spider veins, + larger varicose vein right lower anterior cotto at the old vein bleed site with underlying bulky varicosity.Skin: No open ulcers or woundsClinic note visit: 01/25/21Patient here for follow up and discussion of venous studiescompliant with compression therapyhas leg edema R>L with pain , swellingbleed from anterior cotto vv that is very thinhas been wearing some compression - some improvementAll other systems have been reviewed and are negative for complaintright leg with ankle edema/congestion/inflammation consistent with venous hypertension, scattered reticular veins and area of recent bleed with very thin skin over vv.some spider veins milder edema on the left leg.no open ulcerationFROM CLINICAL NOTE 01-03-2021;The patient presents for evaluation of right lower anterior cotto vein bleed.The patient reports symptoms of pain over the varices and occasional swelling of her lower extremities. Pt experienced a right lower leg vein bleed at home on October 20, 2020. State she may have scratched the varicosity because they always are itchy. She placed a pressure dressing on the vein and went to the ER. by the time she arrive in the ER, bleeding stopped. Pt denies ever having any prior vein bleeds or DVT. Denies any injury to the leg. Denies any chest pain, SOB, fever or chills. Denies any leg pain with walking or at rest. Denies any non healing woundsThere is no exercise induced leg pain or other signs of ischemiaPatient denies prior history of thrombosis (DVT), family history of DVT or use of oral contraceptives.Past Medical Historychronic back pain, depression, hematuria, hydronephrosisSurgical HistoryHistory of Breast reduction, Carpal tunnel surgery, Ganglion cyst excision, Hysterectomy, Pilonidal cyst removal, Tonsillectomy with adenoidectomy, Tubal ligationFamily HistoryCADSocial HistoryConsumes alcoholFormer smoke- Quit 50 yrs agoPast medical. family and social history reviewed but not pertinent to current problem except as mentioned in HPI.Comprehensive ROS:All other systems have been reviewed and are negative except as noted in HPIGeneral: Alert and oriented responsiveEyes: No icterusNeck: No scars no bruitsNeurological: Upper extremity and lower extremity strength +5 out of 5, gait and cognition and speech within normal limitsHeart: Regular rate and rhythmLungs: ClearAbdomen: Soft nontender no palpable masses or aneurysmVascular: Normal 2+ upper extremity pulses, normal 2+ lower extremity pulsesropy R leg v.v. anterior upper shinmultiple small spider veins bilateral upper thighs, + crusty scab near the vein bleedSkin: No open ulcers or wounds -[facility] Work Phone: 03-22-2021 History of Present illness Narrative [facility] OUTPATIENT REHABILITATION DAILY TREATMENT NOTE Today's Date 03/22/2021 Patient Name: Christine Mays Date of : 1945 Current Visit #: 4 Authorized Visits: 9 Case Name: Low Back Pain History: Functional Diagnosis: 1. Spondylolisthesis of lumbar region 2. Spinal stenosis, lumbar region with neurogenic claudication 3. Lumbar radiculopathy Clinical Information: Subjective: Pt reports avg pain coming in today Objective Added paloff press and stability ball isometric core bracing to HEP, gave pt theratube and reviewed new HEP ex's 1 Pt reports moderate difficulty carrying household objects 2 Pt reports she is unable to stand for 30 minutes without extreme difficulty 3 Pt reports some difficulty with daily ADL's 4 Pt reports increased awareness of posture and managing sx's 5 pt reports avg pain level 6/10 6 Pt demos 25 % loss of lumbar extension 7 MMT B hip flexion 4/5 8 FOTO score 40 9 Pt reports ind with HEP and was given copy of extra core ex's Treatments: Physical Therapy Exercise Log - 03/22/21 1513 OTHER Notes visit 3 [id number] Therapeutic Exercise ([id number]) Intervention provided written HEP handouts consisting of the following: Parameters DKTC x10 Intervention PPTs x10 Parameters abd marching x10 Intervention double leg raises Parameters PPTs w/ glute sets x10 Intervention supine sciatic nerve glides Parameters HS stretches x5 Intervention supine hip abd/add GTB x20 Parameters LTR x10 PT Treatment Times Therex Total Time 40 Direct Treatment Time 40 Total Treatment Time 42 Goals: Physical Therapy Ortho Goals: CARRYING/MOVING/HANDLING: Patient will be able to lift and carry common household objects without difficulty in 6 weeks CHANGING MAINTAINING POSITON: Patient will be able to stand and complete table top activities for 30 minutes without increased pain in 6 weeks SELF CARE: Patient will be able to complete ADL's, 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 IMPAIRMENT: Patient will demonstrate improved postural awareness in PT sessions to facilitate mechanical alignment and function in 3 weeks. IMPAIRMENT: Improve pain from 10/10 to <4/10 during prolonged standing and leisure activities in 6 weeks IMPAIRMENT: Improve MMT of Bilateral Hip Flexion from 4/5 to 4+/5 in 6 weeks IMPAIRMENT: Improve AROM of Lumbar Extension to 25% movement loss or less in 6 weeks. OTHER: Patient will increase FOTO score from 44 to at least 60 to show MDC/MCII and expected functional outcome in 6 weeks. OTHER: Patient will be able to properly demonstrate independence with HEP in 1 week. Patient Education: Written HEP and Verbal HEP with patient verbalized understanding. Post-Treatment Pain Scale: Assessment: Patient had an expected response to treatment. Skilled Intervention demonstrated by modifications of treatment per exercise log including assessment of patient's response and safety interventions per exercise log. Progress towards goals as expected. Plan for Next Visit: Discharge Velasquez Najera PTA STATE LICENSE, [id number] documented in this encounter [facility] 03-20-2021 History of Present illness Narrative [facility] OUTPATIENT REHABILITATION DAILY TREATMENT NOTE Today's Date 03/20/2021 Patient Name: Christine Mays Date of : 1945 Current Visit #: 3 Authorized Visits: 9 Case Name: Low Back Pain History: Pre-Treatment Pain Scale: 2 Symptoms: gradually improved Functional Diagnosis: 1. Spondylolisthesis of lumbar region 2. Spinal stenosis, lumbar region with neurogenic claudication 3. Lumbar radiculopathy Clinical Information: Subjective: She has been very busy and hasn't been able to do her HEP Objective Good understanding of pelvic neutral Treatments: Physical Therapy Exercise Log - 03/20/21 1506 OTHER Notes visit 2: 1:45-2:20 Therapeutic Exercise ([id number]) Intervention provided written HEP handouts consisting of the following: Parameters DKTC x10 Intervention PPTs x10 Parameters abd marching x10 Intervention double leg raises Parameters PPTs w/ glute sets x10 Intervention supine sciatic nerve glides Parameters HS stretches x5 Intervention supine hip abd/add GTB x20 Parameters LTR x10 PT Treatment Times Therex Total Time 35 Direct Treatment Time 35 Total Treatment Time 35 Goals: Physical Therapy Ortho Goals: CARRYING/MOVING/HANDLING: Patient will be able to lift and carry common household objects without difficulty in 6 weeks CHANGING MAINTAINING POSITON: Patient will be able to stand and complete table top activities for 30 minutes without increased pain in 6 weeks SELF CARE: Patient will be able to complete ADL's, 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 IMPAIRMENT: Patient will demonstrate improved postural awareness in PT sessions to facilitate mechanical alignment and function in 3 weeks. IMPAIRMENT: Improve pain from 10/10 to <4/10 during prolonged standing and leisure activities in 6 weeks IMPAIRMENT: Improve MMT of Bilateral Hip Flexion from 4/5 to 4+/5 in 6 weeks IMPAIRMENT: Improve AROM of Lumbar Extension to 25% movement loss or less in 6 weeks. OTHER: Patient will increase FOTO score from 44 to at least 60 to show MDC/MCII and expected functional outcome in 6 weeks. OTHER: Patient will be able to properly demonstrate independence with HEP in 1 week. Patient Education: Quality of movement with patient demonstrated understanding. Post-Treatment Pain Scale: 2 Assessment: Patient had an expected response to treatment. Skilled Intervention demonstrated by modifications of treatment per exercise log including increased intensity and safety interventions per exercise log. Progress towards goals as expected. Plan for Next Visit: Treatment Visit with focus on pain control Andie Ryan PTA STATE LICENSE, [id number] documented in this encounter [facility] 03-07-2021 History of Present illness Narrative [facility] OUTPATIENT REHABILITATION Evaluation Today's Date 03/07/2021 Patient Name: Christine Mays Date of : 1945 Case Name: Low Back Pain Functional Diagnosis: 1. Spondylolisthesis of lumbar region 2. Spinal stenosis, lumbar region, with neurogenic claudication 3. Lumbar radiculopathy 4. Spinal stenosis, lumbar region with neurogenic claudication Clinical Information: Subjective Referring Diagnosis: Lumbar Stenosis, Radiculopathy and Spondylolithesis Follow-up with physician: 05/17/2021 History of Present Illness Subjective History: Pt reports c/o chronic low back pain worsening over the years. She has previously seen Dr. Hanna for her back pain and completed some Physical Therapy. She returned to DO d/t worsening pain and received new MRIs of both the thoracic and lumbar spine. She states there was significant degeneration in her low back and that the DO recommended spinal fusion from L4-S1. She reports numbness and tingling in her right LE down the posterolateral thigh to the knee with prolonged standing. Previous Imaging: MRI (December-January 2021) Pain Scale: Pain location: lumbar spine Average Pain: 5/10 Pain at highest: 10/10 Aggravating factors: reaching up over head, prolonged standing, counter top activities Easing factors: rest, walking, Tramadol 24 Hour Symptom Behavior Morning Pain: gradual End of day pain: worse Personal Goals: Decrease pain, improve strength and improve activity tolerance - be able to tolerate shopping and longer walks Functional Mobility Status Functional Limitations: standing Current Mobility Status: Home: no device Community: no device Current Activity Level: low active Premorbid Activity Level: active Social Support: Roman Catholic, social, or cultural considerations to be made aware of before starting treatment: No Home Environment: Current Home Environment: Setup: single story house Entry: steps with railing (3 LUKE)Activities of Daily Living: independent with allInstrumental Activities of Daily Living: to be assessed Sleep Assessment Preferred sleep position: supine Sleep disturbance: Sleep Disturbance Red Flags: None Comments: Barriers to Care: None Roman Catholic, social, or cultural considerations to be made aware of before starting treatment: No Lumbar Spine Posture: Scoliosis: slight lumbar curvature w/ right side convexity and apex at L3 Trunk AROM: Movement Loss % of Loss Description Flexion 0% no pain Extension 75% increases pain Side Gliding R 50% increases pain Side Gliding L 25% no change in pain Dermatomes Sensation: grossly intact Muscle Strength: Hip Flexion Right: 4 Left: 4 Knee extension Right: 5 Left: 5 Ankle DF Right: 5 Left: 5 Ankle PF Right: 5 Left: 5 Knee flexion Right: 5 Left: 5 Hip extension Right: 5 Left: 5 Hip ABD Right: 5 Left: 5 Special Tests Slump Right: no Slump R Left: no Slump L Palpation/ Tenderness: Right side lumbar transverse processes more prominent compared to the left FOTO Score: 44 Treatments: Physical Therapy Exercise Log - 03/07/21 1453 OTHER Notes Eval: 1:55 - 2:50 Therapeutic Exercise ([id number]) Intervention provided written HEP handouts consisting of the following: Parameters DKTC Intervention PPTs Parameters abd marching Intervention double leg raises Parameters PPTs w/ glute sets Intervention supine sciatic nerve glides PT Treatment Times Total Treatment Time 55 Goals: Physical Therapy Ortho Goals: CARRYING/MOVING/HANDLING: Patient will be able to lift and carry common household objects without difficulty in 6 weeks CHANGING MAINTAINING POSITON: Patient will be able to stand and complete table top activities for 30 minutes without increased pain in 6 weeks SELF CARE: Patient will be able to complete ADL's, 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 IMPAIRMENT: Patient will demonstrate improved postural awareness in PT sessions to facilitate mechanical alignment and function in 3 weeks. IMPAIRMENT: Improve pain from 10/10 to <4/10 during prolonged standing and leisure activities in 6 weeks IMPAIRMENT: Improve MMT of Bilateral Hip Flexion from 4/5 to 4+/5 in 6 weeks IMPAIRMENT: Improve AROM of Lumbar Extension to 25% movement loss or less in 6 weeks. OTHER: Patient will increase FOTO score from 44 to at least 60 to show MDC/MCII and expected functional outcome in 6 weeks. OTHER: Patient will be able to properly demonstrate independence with HEP in 1 week. CPT Code 78619 Low 16776 Moderate 33149 High History 0 1-2 3+ Comorbidities: anxiety, chronic pain and thyroid disease, Personal factors: chronicity or severity of the current condition Examination of body systems (elements of body structures & functions, activity limitations, and/or participation restrictions) 1-2 elements 3+ elements 4+ elements See below clinical impression Clinical Presentation Stable Evolving Unstable As evidenced by reproduction of or changes in symptoms with certain movements and pt report of overall worsening of symtpoms over time Decision Making Low (FOTO >/= 69) Moderate (FOTO 34 - 68) High (FOTO </= 33) FOTO score= 44 Pt is a 75 y.o. female who presents to PT services with c/o low back pain. Upon assessment, pt has been found with the following impairments: impaired posture, decreased ROM, decreased strength, pain and Numbness/tingling. 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 The pt would benefit from skilled PT services focused on the above listed impairments and limitations in order to safely progress pt to their desired level of function. Pt to be discharged from OP PT services if/when goals are met, if they fail to make progress with conservative management in PT, if their level of progress plateaus, or if they do not maintain compliance with attendance or HEP. At this time, it is my clinical judgment that services are medically necessary. Plan of Care Frequency of Visits: 2 times per week Duration: 6 weeks Interventions: Therapeutic Exercise, Neuromuscular Re-Education, Manual Therapy, Therapeutic/ Functional Activities and Hot/Cold Pack Rehab Potential: fair Suicide Screen Signs and Symptoms of Abuse/Neglect: No Actions Taken: No Suicide Risk: Does the patient feel like ending their life today?No Actions Taken: No Patient Education Provided Pt was educated on the benefits of therapy and importance of compliance with sessions and HEP for rehabilitation. Pt was also educated on treatment diagnosis, POC, and frequency/duration of treatment. Clinical Impression Pt would benefit from PT interventions for possible lumbar stenosis to address impairments in LE strength, core stability and posture as well as pain control. Cesar Santos PT State License, [id number] documented in this encounter [facility] 03-05-2021 History of Present illness Narrative Christine is a 75-year-old white female who has had 2 to 3 weeks of aching and pain in her right hand with some swelling. She did not have a fall or injury. She had been on meloxicam for neck pain that had helped in the past, but not on it recently. She is having a lot aching and waking up with it at night and with activities and cannot make a full fist. She reports no numbness in her right hand at all though. She occasionally gets some wrist pain. ALLERGIES Maybe codeine, possible. MEDICATIONS Currently are Synthroid, lorazepam, Maxzide, Ultram, and trazodone. PREVIOUS SURGERIES Breast reduction, cholecystectomy, foot surgery, hysterectomy, pilonidal cyst, and I performed a trigger finger release a number of years ago. PAST MEDICAL HISTORY She also has a history of anxiety, chronic lower back, neck pain, headaches and been told she has spinal stenosis. SOCIAL HISTORY She is . Had smoked many years ago. REVIEW OF SYSTEMS No chest pain, shortness of breath. No PND, orthopnea. No bowel or bladder symptoms or other issues currently. PHYSICAL EXAM General: Reveals an elderly white female in no acute distress. Her general exam is unremarkable. She is alert and oriented x3. Neck: Seems supple, but with some pain. Abdomen: Soft, nontender. Extremities: Her shoulders have no obvious physical findings and her elbows look normal. Examination of her right hand reveals mild swelling around the MP joints and she has some pain with both flexion and extension. I do not feel any nodules in the palm and she does not have any triggering of her middle 2 fingers. The index and little finger are uninvolved. She reports some pain dorsally with full flexion. The wrist has a little discomfort as well with motion and mild swelling. She does appear neurovascularly intact and has no obvious Tinel's or Phalen sign. X-RAYS Right hand reviewed. 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 IMPRESSION Right hand pain and swelling. PLAN I discussed the options with her and I decided to write a prescription for meloxicam 7.5 mg daily and give her a Medrol Dosepak to see if this can help her acute pain and swelling. I will plan on seeing her back in 2 to 3 weeks. We talked about cortisone injections, but I really did not see a specific spot to inject. Also discussed the possibility of rheumatoid arthritis and referral to Rheumatology, but we will see how she responds to this more conservative care. We talked about physical therapy as well but in the end, I suggested range of motion on her own. Again, we will see her back in 2 to 3 weeks. documented in this encounter [facility] 10-20-2020 History of Present illness Narrative Right lower leg vein bleed about 2 monhts ago.October 20 -[facility] Work Phone: 10-20-2020 History of Present illness Narrative The patient presents for evaluation of right lower anterior cotto vein bleed.The patient reports symptoms of pain over the varices and occasional swelling of her lower extremities. Pt experienced a right lower leg vein bleed at home on October 20, 2020. State she may have scratched the varicosity because they always are itchy. She placed a pressure dressing on the vein and went to the ER. by the time she arrive in the ER, bleeding stopped. Pt denies ever having any prior vein bleeds or DVT. Denies any injury to the leg. Denies any chest pain, SOB, fever or chills. Denies any leg pain with walking or at rest. Denies any non healing woundsThere is no exercise induced leg pain or other signs of ischemiaPatient denies prior history of thrombosis (DVT), family history of DVT or use of oral contraceptives.Past Medical Historychronic back pain, depression, hematuria, hydronephrosisSurgical HistoryHistory of Breast reduction, Carpal tunnel surgery, Ganglion cyst excision, Hysterectomy, Pilonidal cyst removal, Tonsillectomy with adenoidectomy, Tubal ligationFamily HistoryCADSocial HistoryConsumes alcoholFormer smoke- Quit 50 yrs agoPast medical. family and social history reviewed but not pertinent to current problem except as mentioned in HPI.Comprehensive ROS:All other systems have been reviewed and are negative except as noted in HPIGeneral: Alert and oriented responsiveEyes: No icterusNeck: No scars no bruitsNeurological: Upper extremity and lower extremity strength +5 out of 5, gait and cognition and speech within normal limitsHeart: Regular rate and rhythmLungs: ClearAbdomen: Soft nontender no palpable masses or aneurysmVascular: Normal 2+ upper extremity pulses, normal 2+ lower extremity pulsesropy R leg v.v. anterior upper shinmultiple small spider veins bilateral upper thighs, + crusty scab near the vein bleedSkin: No open ulcers or wounds -[facility] Work Phone: 12-28-2018 Telephone encounter Note Patient was PRN follow up, states he family doc is filling atenolol. No need for us to refill. [facility] 12-28-2018 Miscellaneous Notes Patient was PRN follow up, states he family doc is filling atenolol. No need for us to refill. documented in this encounter [facility] 11-07-2016 History of Present illness Narrative h/o stress test about [address] Kaur [facility] was normaldoes HEP on backtramadol 1 bidno change in sobhad 2 times with 1 to 2 mintueshad to stophappened during dinner or house workpain in the center heavy acheno vomittingturned in holter monitor october 31 upsfor 1 weekwill call with resutls of asher romano refer to cariology -[facility] Work Phone: Chief complaint Narrative - Reported The patient presents to the office today for an initial evaluation.The patient presents for evaluation of varicose veins and limb swelling . vein bleed.The patient is referred by: Liliam, Primary Care Physician. -[facility] Work Phone: Consult note No Information [facility] Work Phone: Discharge summary* Clinical Note Date No Information [facility] Work Phone: Evaluation note* Diagnosis Spondylolisthesis of lumbar region- Primary Spinal stenosis, lumbar region, with neurogenic claudication Lumbar radiculopathy Thoracic or lumbosacral neuritis or radiculitis, unspecified [facility] Diagnosis Arthritis of right hand- Primary [facility]* Diagnosis Spondylolisthesis of lumbar region Spinal stenosis, lumbar region, with neurogenic claudication Lumbar radiculopathy Thoracic or lumbosacral neuritis or radiculitis, unspecified Spinal stenosis, lumbar region with neurogenic claudication [facility]* Diagnosis Spondylolisthesis of lumbar region- Primary Spinal stenosis, lumbar region with neurogenic claudication Lumbar radiculopathy Thoracic or lumbosacral neuritis or radiculitis, unspecified [facility]* Diagnosis Spondylolisthesis of lumbar region- Primary Spinal stenosis, lumbar region with neurogenic claudication Lumbar radiculopathy Thoracic or lumbosacral neuritis or radiculitis, unspecified [facility]* Diagnosis Onychomycosis- Primary Dermatophytosis of nail Peripheral vascular disease, unspecified (HCC) Peripheral vascular disease, unspecified Corns Corns and callosities [facility]* Diagnosis Arthritis of carpometacarpal (CMC) joint of right thumb- Primary [facility]* Diagnosis Acquired hammertoe of left foot- Primary Metatarsalgia, left foot Corns and callus Left foot pain Pain in soft tissues of limb [facility]* Diagnosis Arthritis of carpometacarpal (CMC) joint of right thumb- Primary Arthritis of right hand Tendonitis of finger Dupuytren contracture Contracture of palmar fascia [facility]* Diagnosis Neck pain- Primary Cervicalgia Upper back pain Unspecified backache [facility]* Diagnosis Neck pain Cervicalgia Upper back pain Unspecified backache [facility]* Diagnosis Neck pain- Primary Cervicalgia Chronic low back pain with sciatica, sciatica laterality unspecified, unspecified back pain laterality [facility]* Diagnosis Neck pain- Primary Cervicalgia Chronic low back pain, unspecified back pain laterality, unspecified whether sciatica present [facility]* Diagnosis Neck pain- Primary Cervicalgia Chronic low back pain with sciatica, sciatica laterality unspecified, unspecified back pain laterality [facility]* Diagnosis Peripheral vascular disease, unspecified (HCC)- Primary Peripheral vascular disease, unspecified Acquired hammertoe of left foot Onychomycosis Dermatophytosis of nail Toe pain, left Pain in soft tissues of limb [facility]* Diagnosis Neck pain- Primary Cervicalgia Chronic low back pain with sciatica, sciatica laterality unspecified, unspecified back pain laterality [facility]* Diagnosis Neck pain- Primary Cervicalgia [facility]* Diagnosis Neck pain- Primary Cervicalgia Chronic back pain, unspecified back location, unspecified back pain laterality [facility]* Diagnosis Dupuytren contracture- Primary Contracture of palmar fascia [facility] Neck pain- Primary Cervicalgia Chronic midline low back pain with sciatica, sciatica laterality unspecified [facility]* Diagnosis Acquired hammertoe of left foot- Primary [facility]* Diagnosis Acquired hammertoe of left foot- Primary [facility]* Diagnosis Acquired hammertoe of left foot- Primary [facility]* Diagnosis Acquired hammertoe of left foot- Primary [facility]* Diagnosis Other forms of scoliosis, lumbar region- Primary Lumbar radiculopathy Thoracic or lumbosacral neuritis or radiculitis, unspecified Spinal stenosis, lumbar region, with neurogenic claudication Spondylolisthesis of lumbar region [facility]* Diagnosis Other forms of scoliosis, lumbar region Lumbar radiculopathy Thoracic or lumbosacral neuritis or radiculitis, unspecified Spinal stenosis, lumbar region, with neurogenic claudication Spondylolisthesis of lumbar region [facility]* Diagnosis Routine general medical examination at health care facility- Primary Routine general medical examination at a health care facility Other chronic pain Acquired hypothyroidism Unspecified hypothyroidism Screening for hyperlipidemia Screening for lipoid disorders documented in this encounter [facility] Work Phone: Evaluation note* Diagnosis Spinal stenosis, lumbar region with neurogenic claudication- Primary Chronic low back pain, unspecified back pain laterality, unspecified whether sciatica present Spondylolisthesis of lumbar region Lumbar radiculopathy Thoracic or lumbosacral neuritis or radiculitis, unspecified [facility]* Diagnosis Spinal stenosis, lumbar region with neurogenic claudication- Primary Chronic low back pain, unspecified back pain laterality, unspecified whether sciatica present Spondylolisthesis of lumbar region Lumbar radiculopathy Thoracic or lumbosacral neuritis or radiculitis, unspecified [facility]* Diagnosis Spinal stenosis, lumbar region with neurogenic claudication- Primary Chronic low back pain with sciatica, sciatica laterality unspecified, unspecified back pain laterality Spondylolisthesis of lumbar region Lumbar radiculopathy Thoracic or lumbosacral neuritis or radiculitis, unspecified [facility] Diagnosis Spinal stenosis, lumbar region with neurogenic claudication- Primary Chronic low back pain with sciatica, sciatica laterality unspecified, unspecified back pain laterality Spondylolisthesis of lumbar region Lumbar radiculopathy Thoracic or lumbosacral neuritis or radiculitis, unspecified [facility] Diagnosis Spinal stenosis, lumbar region with neurogenic claudication- Primary Chronic low back pain with sciatica, sciatica laterality unspecified, unspecified back pain laterality Spondylolisthesis of lumbar region Lumbar radiculopathy Thoracic or lumbosacral neuritis or radiculitis, unspecified [facility] Diagnosis Spinal stenosis, lumbar region with neurogenic claudication- Primary Chronic low back pain with sciatica, sciatica laterality unspecified, unspecified back pain laterality Spondylolisthesis of lumbar region Lumbar radiculopathy Thoracic or lumbosacral neuritis or radiculitis, unspecified [facility] Diagnosis Chronic neck pain- Primary Cervicalgia Other chronic pain Spinal stenosis of lumbar region with neurogenic claudication documented in this encounter [facility] Work Phone: Evaluation note* Diagnosis Acquired hammertoe of left foot- Primary [facility] Diagnosis Spinal stenosis of lumbar region with neurogenic claudication- Primary documented in this encounter [facility] note* Diagnosis Near syncope- Primary Syncope and collapse Shortness of breath Other pulmonary embolism without acute cor pulmonale (CMS/HCC) Hypothyroidism, unspecified type documented in this encounter [facility] Work Phone: Evaluation note* Diagnosis Near syncope- Primary Syncope and collapse Shortness of breath Other pulmonary embolism without acute cor pulmonale (CMS/HCC) Hypothyroidism, unspecified type documented in this encounter [facility] Work Phone: Evaluation note* Diagnosis Chronic low back pain, unspecified back pain laterality, unspecified whether sciatica present- Primary documented in this encounter [facility] Work Phone: Evaluation note* Diagnosis Iron deficiency anemia, unspecified iron deficiency anemia type- Primary Hypothyroidism, unspecified type Spinal stenosis of lumbar region with neurogenic claudication Fall in home, subsequent encounter Weight gain Other symptoms concerning nutrition, metabolism, and development documented in this encounter [facility] Work Phone: Evaluation note* Diagnosis Fall, initial encounter- Primary Acute deep vein thrombosis (DVT) of popliteal vein of right lower extremity (CMS/HCC) documented in this encounter [facility] Work Phone: Evaluation note* Diagnosis Plantar fasciitis, left- Primary [facility]* Diagnosis Humerus head fracture, left, with routine healing, subsequent encounter- Primary Closed nondisplaced fracture of surgical neck of left humerus, unspecified fracture morphology, initial encounter Encounter for post fall examination Hypokalemia Hypopotassemia Humerus head fracture, left, with routine healing, subsequent encounter Neck pain Cervicalgia Lumbar radiculopathy Thoracic or lumbosacral neuritis or radiculitis, unspecified Spinal stenosis, lumbar region with neurogenic claudication Spondylolisthesis of lumbar region S/P trigger finger release Ganglion of flexor tendon sheath of left thumb Trigger finger, left little finger Disease of thyroid gland Unspecified disorder of thyroid Heart palpitations Palpitations Trigger finger, left middle finger Primary osteoarthritis of left wrist Left carpal tunnel syndrome Carpal tunnel syndrome Left wrist pain Pain in joint, forearm [facility]* Diagnosis Humerus head fracture, left, with routine healing, subsequent encounter- Primary [facility]* Diagnosis Humerus head fracture, left, with routine healing, subsequent encounter- Primary [facility]* Diagnosis Humerus head fracture, left, with routine healing, subsequent encounter- Primary [facility]* Diagnosis Humerus head fracture, left, with routine healing, subsequent encounter [facility]* Diagnosis Humerus head fracture, left, with routine healing, subsequent encounter- Primary [facility]* Diagnosis Humerus head fracture, left, with routine healing, subsequent encounter- Primary [facility]* Diagnosis Humerus head fracture, left, with routine healing, subsequent encounter- Primary [facility]* Diagnosis Humerus head fracture, left, with routine healing, subsequent encounter- Primary Humerus head fracture, left, with routine healing, subsequent encounter- Primary Humerus head fracture, left, with routine healing, subsequent encounter [facility]* Diagnosis Humerus head fracture, left, with routine healing, subsequent encounter- Primary Humerus head fracture, left, with routine healing, subsequent encounter- Primary Humerus head fracture, left, with routine healing, subsequent encounter [facility]* Diagnosis S/P hardware removal- Primary Humerus head fracture, left, with routine healing, subsequent encounter [facility]* Diagnosis S/P hardware removal- Primary [facility]* Diagnosis Callus- Primary Corns and callosities Hammer toe of left foot Corns Corns and callosities [facility]* Diagnosis Routine general medical examination at health care facility- Primary Routine general medical examination at a health care facility Benign essential HTN Chronic pain syndrome Temporal arteritis (Multi) Giant cell arteritis Acquired hypothyroidism Unspecified hypothyroidism Screening cholesterol level Screening for lipoid disorders Chronic low back pain, unspecified back pain laterality, unspecified whether sciatica present Osteopenia, unspecified location documented in this encounter [facility] Work Phone: Evaluation note* Diagnosis Palpitations Near syncope Syncope, unspecified syncope type Heart palpitations Palpitations Essential hypertension Unspecified essential hypertension Disease of thyroid gland Unspecified disorder of thyroid Acquired hammertoe of left foot- Primary Callus Corns and callosities [facility]* Diagnosis Benign essential HTN- Primary Spinal stenosis of lumbar region with neurogenic claudication documented in this encounter [facility] Work Phone: Evaluation note* Type Assessment Date No Information [facility] Work Phone: Evaluation note* Diagnosis Palpitations Near syncope Syncope, unspecified syncope type Heart palpitations Palpitations Essential hypertension Unspecified essential hypertension Disease of thyroid gland Unspecified disorder of thyroid Tinea pedis of left foot- Primary [facility] Clinical Note Date No Information [facility] Work Phone: History of Present illness Narrative* Patient here for follow up and discussion of venous studies * compliant with compression therapy * has leg edema R>L with pain , swelling * bleed from anterior cotto vv that is very thin * has been wearing some compression - some improvement * All other systems have been reviewed and are negative for complaint * right leg with ankle edema/congestion/inflammation consistent with venous hypertension, scattered reticular veins and area of recent bleed with very thin skin over vv. * some spider veins milder edema on the left leg. * no open ulceration * FROM CLINICAL NOTE 01-03-2021; * The patient presents for evaluation of right lower anterior cotto vein bleed. * The patient reports symptoms of pain over the varices and occasional swelling of her lower extremities. Pt experienced a right lower leg vein bleed at home on October 20, 2020. State she may have scratched the varicosity because they always are itchy. She placed a pressure dressing on the vein and went to the ER. by the time she arrive in the ER, bleeding stopped. Pt denies ever having any prior vein bleeds or DVT. Denies any injury to the leg. Denies any chest pain, SOB, fever or chills. Denies any leg pain with walking or at rest. Denies any non healing wounds * There is no exercise induced leg pain or other signs of ischemia * Patient denies prior history of thrombosis (DVT), family history of DVT or use of oral contraceptives. * Past Medical History * chronic back pain, depression, hematuria, hydronephrosis * Surgical History * History of Breast reduction, Carpal tunnel surgery, Ganglion cyst excision, Hysterectomy, Pilonidalcyst removal, Tonsillectomy with adenoidectomy, Tubal ligation * Family History * CAD * Social History * Consumes alcohol * Former smoke- Quit 50 yrs ago * Past medical. family and social history reviewed but not pertinent to current problem except as mentioned in HPI. * Comprehensive ROS: * All other systems have been reviewed and are negative except as noted in HPI * General: Alert and oriented responsive * Eyes: No icterus * Neck: No scars no bruits * Neurological: Upper extremity and lower extremity strength +5 out of 5, gait and cognition and speech within normal limits * Heart: Regular rate and rhythm * Lungs: Clear * Abdomen: Soft nontender no palpable masses or aneurysm * Vascular: Normal 2+ upper extremity pulses, normal 2+ lower extremity pulses * ropy R leg v.v. anterior upper cotto * multiple small spider veins bilateral upper thighs, + crusty scab near the vein bleed * Skin: No open ulcers or wounds -[facility] Work Phone: History of Present illness Narrative* Christine reports that she has been having superficial vein varicosities. she has had an accident whenthe vein ruptured and gushed blood. SHe is worried that this might happen with the current lesion she has in her left lower extremity. She has a dog which can scratch her skin so she is worried aboutthis. * Anxiety: * HTN: * Osteopenia: * I have personally reviewed the [place] report for CHRISTINE MAYS. I have considered the risks of abuse,dependence, addiction and diversion. * I have the following concerns: no. * Is the patient prescribed a combination of a benzodiazepine and opioid? Yes. * Uses meds on an as needed basis. Does not take them at the same time. Opioid is for her chronic pain and benzo is for her anxiety. Risks, benefits and alternatives have been discussed w/ pt - pt ok w/ current meds she is on, as her chronic pain and anxiety are controlled. Rx for narcan has been sent to pharm - pt counseled on how to use and when to use it * Last urine drug screening date/ordered today: 03/03/2020 * Results of last screen: Results as expected. * Date of the last Controlled Substance Agreement: 06/01/20 * OPIOID * What is the patient s goal of therapy? back pain control. * Is this being achieved with current treatment? yes. * Attestation statement: I feel that it is clinically indicated to continue this current medication regimen after consideration of alternative therapies, and other non-opioid treatments. * Opioid Risk Screening: * Opioid Risk Tool * Last opioid risk screening date/ordered today: 08/30/2020 * Family history of substance abuse: Alcohol = 1 * Patient's total score is 1, within range of Low Risk (<= 3). * Pain Scale Screening: * Pain Assessment and Documentation Tool (PADT) * Date of Assessment: 02/20/21 * Analgesia: * Patient reports her pain level on average during the past week is 6 on a 0 - 10 scale. * Patient reports that her pain level at its worst during the past week was 10 on a 0 -10 scale. * 80 % of pain has been relieved during the past week per patient * Patient states that the amount of pain relief she is now obtaining from her current pain reliever(s) is enough to make a real difference in her life. * Query to clinician: Is the patient's pain relief clinically significant? Yes * Activities of Daily Living: * Physical functioning: Same * Family relationships: Same * Social relationships: Same * Mood: Same * Sleep patterns: Same * Overall functioning: Same * Adverse Events: * No, CHRISTINE MAYS is not experiencing side effects from current pain reliever. * Patients overall severity of side effect: None * Is your overall impression that this patient is benefiting (e.g., benefits, such as pain relief, outweigh side effects) from opioid therapy? Yes. * I have calculated the patient's Morphine Dose Equivalent (MED): * I am increasing or initiating an opioid dose greater than 50 MED, I am referring the patient to a specialist. * BENZODIAZEPINES * What is the patient s goal of therapy? control anxiety. [facility] Work Phone: History of Present illness Narrative* Patient reports that she has pain in her hand joints. Concern about rheumatoid arthritis. * Anxiety: Stable under control takes medication regularly. * HTN: Patient reports that she takes medications regularly.Blood pressure is elevated today. Denies any symptoms of chest pain, palpitations or shortness of breath. * I have personally reviewed the OARRS report for CHRISTINE MAYS. I have considered the risks of abuse,dependence, addiction and diversion. * I have the following concerns: no. * Is the patient prescribed a combination of a benzodiazepine and opioid? Yes. * Uses meds on an as needed basis. Does not take them at the same time. Opioid is for her chronic pain and benzo is for her anxiety. Risks, benefits and alternatives have been discussed w/ pt - pt ok w/ current meds she is on, as her chronic pain and anxiety are controlled. Rx for narcan has been sent to pharm - pt counseled on how to use and when to use it * Last urine drug screening date/ordered today: 03/03/2020 * Results of last screen: Results as expected. * Date of the last Controlled Substance Agreement: 06/01/20 * OPIOID * What is the patient s goal of therapy? back pain control. * Is this being achieved with current treatment? yes. * Attestation statement: I feel that it is clinically indicated to continue this current medication regimen after consideration of alternative therapies, and other non-opioid treatments. * Opioid Risk Screening: * Opioid Risk Tool * Last opioid risk screening date/ordered today: 08/30/2020 * Family history of substance abuse: Alcohol = 1 * Patient's total score is 1, within range of Low Risk (<= 3). * Pain Scale Screening: * Pain Assessment and Documentation Tool (PADT) * Date of Assessment: 02/20/21 * Analgesia: * Patient reports her pain level on average during the past week is 6 on a 0 - 10 scale. * Patient reports that her pain level at its worst during the past week was 10 on a 0 -10 scale. * 80 % of pain has been relieved during the past week per patient * Patient states that the amount of pain relief she is now obtaining from her current pain reliever(s) is enough to make a real difference in her life. * Query to clinician: Is the patient's pain relief clinically significant? Yes * Activities of Daily Living: * Physical functioning: Same * Family relationships: Same * Social relationships: Same * Mood: Same * Sleep patterns: Same * Overall functioning: Same * Adverse Events: * No, CHRISTINE MAYS is not experiencing side effects from current pain reliever. * Patients overall severity of side effect: None * Is your overall impression that this patient is benefiting (e.g., benefits, such as pain relief, outweigh side effects) from opioid therapy? Yes. * I have calculated the patient's Morphine Dose Equivalent (MED): * I am increasing or initiating an opioid dose greater than 50 MED, I am referring the patient to a specialist. * BENZODIAZEPINES * What is the patient s goal of therapy? control anxiety. [facility] Work Phone: History of Present illness Narrative* Patient reports that she has pain in her hand joints. Concern about rheumatoid arthritis. * Anxiety: Stable under control takes medication regularly. * HTN: Patient reports that she takes medications regularly.Blood pressure is elevated today. Denies any symptoms of chest pain, palpitations or shortness of breath. * I have personally reviewed the OARRS report for CHRISTINE MAYS. I have considered the risks of abuse,dependence, addiction and diversion. * I have the following concerns: no. * Is the patient prescribed a combination of a benzodiazepine and opioid? Yes. * Uses meds on an as needed basis. Does not take them at the same time. Opioid is for her chronic pain and benzo is for her anxiety. Risks, benefits and alternatives have been discussed w/ pt - pt ok w/ current meds she is on, as her chronic pain and anxiety are controlled. Rx for narcan has been sent to pharm - pt counseled on how to use and when to use it * Last urine drug screening date/ordered today: 03/03/2020 * Results of last screen: Results as expected. * Date of the last Controlled Substance Agreement: 06/01/20 * OPIOID * What is the patient s goal of therapy? back pain control. * Is this being achieved with current treatment? yes. * Attestation statement: I feel that it is clinically indicated to continue this current medication regimen after consideration of alternative therapies, and other non-opioid treatments. * Opioid Risk Screening: * Opioid Risk Tool * Last opioid risk screening date/ordered today: 08/30/2020 * Family history of substance abuse: Alcohol = 1 * Patient's total score is 1, within range of Low Risk (<= 3). * Pain Scale Screening: * Pain Assessment and Documentation Tool (PADT) * Date of Assessment: 02/20/21 * Analgesia: * Patient reports her pain level on average during the past week is 6 on a 0 - 10 scale. * Patient reports that her pain level at its worst during the past week was 10 on a 0 -10 scale. * 80 % of pain has been relieved during the past week per patient * Patient states that the amount of pain relief she is now obtaining from her current pain reliever(s) is enough to make a real difference in her life. * Query to clinician: Is the patient's pain relief clinically significant? Yes * Activities of Daily Living: * Physical functioning: Same * Family relationships: Same * Social relationships: Same * Mood: Same * Sleep patterns: Same * Overall functioning: Same * Adverse Events: * No, CHRISTINE MAYS is not experiencing side effects from current pain reliever. * Patients overall severity of side effect: None * Is your overall impression that this patient is benefiting (e.g., benefits, such as pain relief, outweigh side effects) from opioid therapy? Yes. * I have calculated the patient's Morphine Dose Equivalent (MED): * I am increasing or initiating an opioid dose greater than 50 MED, I am referring the patient to a specialist. * BENZODIAZEPINES * What is the patient s goal of therapy? control anxiety. [facility] Work Phone: History of Present illness Narrative* patient presented for tentative varithena today and on US evaluation at the bedside she appears to have thrombosed off all the refluxing tributaries - no varithena was administered and microthrombectomy was performed. bandaids were applied and patient tolerated well * stated she may be interested in some cosmetic sclero down the road * will see me back in 3 months. * FROM CLINICAL NOTE 04-26-2021; * s/p 03/27/21 * R GSV VENASEAL AND RETICULAR FOAM SCLERO X2 * Pt doing well. States she did have some tenderness along inner lower portion of her right thigh andlower right inner ankle. Denies any fever or chills. Denies any chest pain or SOB * General: Alert and oriented responsive * Eyes: No icterus * Neck: No scars no bruits * Neurological: Upper extremity and lower extremity strength +5 out of 5, gait and cognition and speech within normal limits * Heart: Regular rate and rhythm * Lungs: Clear * Abdomen: Soft nontender no palpable masses or aneurysm * Vascular: Normal 2+ upper extremity pulses, normal 2+ lower extremity pulses * multiple area of spider veins, + larger varicose vein right lower anterior cotto at the old vein bleed site with underlying bulky varicosity. * Skin: No open ulcers or wounds * Clinic note visit: 01/25/21 * Patient here for follow up and discussion of venous studies * compliant with compression therapy * has leg edema R>L with pain , swelling * bleed from anterior cotto vv that is very thin * has been wearing some compression - some improvement * All other systems have been reviewed and are negative for complaint * right leg with ankle edema/congestion/inflammation consistent with venous hypertension, scattered reticular veins and area of recent bleed with very thin skin over vv. * some spider veins milder edema on the left leg. * no open ulceration * FROM CLINICAL NOTE 01-03-2021; * The patient presents for evaluation of right lower anterior cotto vein bleed. * The patient reports symptoms of pain over the varices and occasional swelling of her lower extremities. Pt experienced a right lower leg vein bleed at home on October 20, 2020. State she may have scratched the varicosity because they always are itchy. She placed a pressure dressing on the vein and went to the ER. by the time she arrive in the ER, bleeding stopped. Pt denies ever having any prior vein bleeds or DVT. Denies any injury to the leg. Denies any chest pain, SOB, fever or chills. Denies any leg pain with walking or at rest. Denies any non healing wounds * There is no exercise induced leg pain or other signs of ischemia * Patient denies prior history of thrombosis (DVT), family history of DVT or use of oral contraceptives. * Past Medical History * chronic back pain, depression, hematuria, hydronephrosis * Surgical History * History of Breast reduction, Carpal tunnel surgery, Ganglion cyst excision, Hysterectomy, Pilonidalcyst removal, Tonsillectomy with adenoidectomy, Tubal ligation * Family History * CAD * Social History * Consumes alcohol * Former smoke- Quit 50 yrs ago * Past medical. family and social history reviewed but not pertinent to current problem except as mentioned in HPI. * Comprehensive ROS: * All other systems have been reviewed and are negative except as noted in HPI * General: Alert and oriented responsive * Eyes: No icterus * Neck: No scars no bruits * Neurological: Upper extremity and lower extremity strength +5 out of 5, gait and cognition and speech within normal limits * Heart: Regular rate and rhythm * Lungs: Clear * Abdomen: Soft nontender no palpable masses or aneurysm * Vascular: Normal 2+ upper extremity pulses, normal 2+ lower extremity pulses * ropy R leg v.v. anterior upper cotto * multiple small spider veins bilateral upper thighs, + crusty scab near the vein bleed * Skin: No open ulcers or wounds [facility] [address] DO Work Phone: History of Present illness Narrative* Patient reports that she has pain in her hand joints. Concern about rheumatoid arthritis. * Anxiety: Stable under control takes medication regularly. * HTN: Patient reports that she takes medications regularly.Blood pressure is elevated today. Denies any symptoms of chest pain, palpitations or shortness of breath. * 11 to 12 an 5-6 pm * Lorazepam at bedtime - 10:30 to 11pm. * Follow up in 3 months. * Discontinuing Lorazepam and initiating Tramadol higher dose for pain control. * I have personally reviewed the OARRS report for CHRISTINE MAYS. I have considered the risks of abuse,dependence, addiction and diversion. * I have the following concerns: no. * Is the patient prescribed a combination of a benzodiazepine and opioid? Yes. * Uses meds on an as needed basis. Does not take them at the same time. Opioid is for her chronic pain and benzo is for her anxiety. Risks, benefits and alternatives have been discussed w/ pt - pt ok w/ current meds she is on, as her chronic pain and anxiety are controlled. Rx for narcan has been sent to pharm - pt counseled on how to use and when to use it * Last urine drug screening date/ordered today: 06/18/21 * Results of last screen: Results as expected. * Date of the last Controlled Substance Agreement: 06/18/21 * OPIOID * What is the patient s goal of therapy? back pain control. * Is this being achieved with current treatment? yes. * Attestation statement: I feel that it is clinically indicated to continue this current medication regimen after consideration of alternative therapies, and other non-opioid treatments. * Opioid Risk Screening: * Opioid Risk Tool * Last opioid risk screening date/ordered today: 08/30/2020 * Family history of substance abuse: Alcohol = 1 * Patient's total score is 1, within range of Low Risk (<= 3). * Pain Scale Screening: * Pain Assessment and Documentation Tool (PADT) * Date of Assessment: 06/18/21 * Analgesia: * Patient reports her pain level on average during the past week is 8 on a 0 - 10 scale. * Patient reports that her pain level at its worst during the past week was 10 on a 0 -10 scale. * 50% % of pain has been relieved during the past week per patient * Patient states that the amount of pain relief she is now obtaining from her current pain reliever(s) is enough to make a real difference in her life. * Query to clinician: Is the patient's pain relief clinically significant? Yes * Activities of Daily Living: * Physical functioning: Worse * Family relationships: Same * Social relationships: Same * Mood: Same * Sleep patterns: Same * Overall functioning: Same * Adverse Events: * No, CHRISTINE MAYS is not experiencing side effects from current pain reliever. * Patients overall severity of side effect: None * Is your overall impression that this patient is benefiting (e.g., benefits, such as pain relief, outweigh side effects) from opioid therapy? Yes. * I have calculated the patient's Morphine Dose Equivalent (MED): * I have considered referral to Pain Management and/or a specialist, and do not feel it is necessary at this time. * BENZODIAZEPINES * What is the patient s goal of therapy? control anxiety. [facility] Work Phone: History of Present illness Narrative* I have personally reviewed the OARRS report for CHRISTINE MAYS. I have considered the risks of abuse,dependence, addiction and diversion. * I have the following concerns: no. * Is the patient prescribed a combination of a benzodiazepine and opioid? Yes. * Uses meds on an as needed basis. Does not take them at the same time. Opioid is for her chronic pain and benzo is for her anxiety. Risks, benefits and alternatives have been discussed w/ pt - pt ok w/ current meds she is on, as her chronic pain and anxiety are controlled. Rx for narcan has been sent to pharm - pt counseled on how to use and when to use it * Last urine drug screening date/ordered today: 06/18/21 * Results of last screen: Results as expected. * Date of the last Controlled Substance Agreement: 06/18/21 * OPIOID * What is the patient s goal of therapy? back pain control. * Is this being achieved with current treatment? yes. * Attestation statement: I feel that it is clinically indicated to continue this current medication regimen after consideration of alternative therapies, and other non-opioid treatments. * Opioid Risk Screening: * Opioid Risk Tool * Last opioid risk screening date/ordered today: 08/30/2020 * Family history of substance abuse: Alcohol = 1 * Patient's total score is 1, within range of Low Risk (<= 3). * Pain Scale Screening: * Pain Assessment and Documentation Tool (PADT) * Date of Assessment: 02/20/21 * Analgesia: * Patient reports her pain level on average during the past week is 6 on a 0 - 10 scale. * Patient reports that her pain level at its worst during the past week was 10 on a 0 -10 scale. * 80 % of pain has been relieved during the past week per patient * Patient states that the amount of pain relief she is now obtaining from her current pain reliever(s) is enough to make a real difference in her life. * Query to clinician: Is the patient's pain relief clinically significant? Yes * Activities of Daily Living: * Physical functioning: Same * Family relationships: Same * Social relationships: Same * Mood: Same * Sleep patterns: Same * Overall functioning: Same * Adverse Events: * No, CHRISTINE MAYS is not experiencing side effects from current pain reliever. * Patients overall severity of side effect: None * Is your overall impression that this patient is benefiting (e.g., benefits, such as pain relief, outweigh side effects) from opioid therapy? Yes. * I have calculated the patient's Morphine Dose Equivalent (MED): * I am increasing or initiating an opioid dose greater than 50 MED, I am referring the patient to a specialist. * BENZODIAZEPINES * What is the patient s goal of therapy? control anxiety. [facility] Work Phone: History of Present illness Narrative* cannot feel like getting one leg in front of the other after standing x 2 months * some vertigo with rolling in bed * feels like passing out * deep breath radiate from left chest to shoulder for a 1 minute or 2 * stabbing * pt has increased fluid * had labs and xray " funny" = today * had xray fo back dr [place] * has epidural * h/o hyponatremia * h/o stress test about [address] [facility] was normal * does HEP on back * states very busy * tramadol 1 bid * last hosp was 5 yeasr ago for urosepsis * fxh borther x 3 and father and sister all had [place] * ros * no sob at rest * has sob with exertion about the same * no palptition * no cough * smoker in 'S * no fevers no chills * no abd pain * 4 day woke up vomitting all day friday [facility] Work Phone: History of Present illness Narrative* Patient is here for follow-up. Reports that her neck pain and arthritis in other joints of the bodyare worsening. Reports that the current regimen with tramadol is moderately helpful. However there are times that her pain is significantly worse. She is ending up taking large amounts of Tylenol andibuprofen. * Hand pain worse too. * Plan: Discussed at length about the options of treatment. Starting Maloxicam to be taken along withTramadol. Discussed the potential risk for affecting kidney function, causing gastritis and other potential side effects. Recommended to use it with caution. * May need to consider discussing about her mood and management of more related conditions if needed. * Hypertension blood pressure is elevated today. Has been better than in the past. Patient reports that she has been under a lot of stress lately. Additionally she has pain which is not well controlledat this time. She thinks elbow factors may have played with elevated blood pressure. * Plan: Recommended to check blood pressure at home. If persistently elevated then will consider changing blood pressure medication. Patient does not want to change her blood pressure medication at this time. * Hypothyroidism: TSH was normal in September 2021. We will continue with the current regimen. * Follow-up in 3 months. Sooner if worsening of symptoms. * I have personally reviewed the OARRS report for CHRISTINE MAYS. I have considered the risks of abuse,dependence, addiction and diversion. * I have the following concerns: no. * Is the patient prescribed a combination of a benzodiazepine and opioid? Yes. * Uses meds on an as needed basis. Does not take them at the same time. Opioid is for her chronic pain and benzo is for her anxiety. Risks, benefits and alternatives have been discussed w/ pt - pt ok w/ current meds she is on, as her chronic pain and anxiety are controlled. Rx for narcan has been sent to pharm - pt counseled on how to use and when to use it * Last urine drug screening date/ordered today: 06/18/21 * Results of last screen: Results as expected. * Date of the last Controlled Substance Agreement: 06/18/21 * OPIOID * What is the patient s goal of therapy? back pain control. * Is this being achieved with current treatment? yes. * Attestation statement: I feel that it is clinically indicated to continue this current medication regimen after consideration of alternative therapies, and other non-opioid treatments. * Opioid Risk Screening: * Opioid Risk Tool * Last opioid risk screening date/ordered today: 10/02/2021 * Family history of substance abuse: Alcohol = 1 * Patient's total score is 1, within range of Low Risk (<= 3). * Pain Scale Screening: * Pain Assessment and Documentation Tool (PADT) * Date of Assessment: 10/02/2021 * Analgesia: * Patient reports her pain level on average during the past week is 6 on a 0 - 10 scale. * Patient reports that her pain level at its worst during the past week was 9 on a 0 -10 scale. * 50% % of pain has been relieved during the past week per patient * Patient states that the amount of pain relief she is now obtaining from her current pain reliever(s) is enough to make a real difference in her life. * Query to clinician: Is the patient's pain relief clinically significant? Yes * Activities of Daily Living: * Physical functioning: Worse * Family relationships: Same * Social relationships: Same * Mood: Same * Sleep patterns: Same * Overall functioning: Same * Adverse Events: * No, CHRISTINE MAYS is not experiencing side effects from current pain reliever. * Patients overall severity of side effect: None * Is your overall impression that this patient is benefiting (e.g., benefits, such as pain relief, outweigh side effects) from opioid therapy? Yes. * I have calculated the patient's Morphine Dose Equivalent (MED): * I have considered referral to Pain Management and/or a specialist, and do not feel it is necessary at this time. * BENZODIAZEPINES * What is the patient s goal of therapy? control anxiety. [facility] Work Phone: History of Present illness Narrative* The patient is being seen for the subsequent annual wellness visit. * Medications and Supplements: Review of all medications by a prescribing practitioner or clinical pharmacist (such as prescriptions, OTCs, herbal therapies and supplements) documented in the medical record. * Yes, the patient is using opioids. * Patient Self Assessment of Health Status: good. * Tobacco use: Non-User * Alcohol use: Non-User * Illicit drug use: Non-User * Current diet: well balanced diet and does consume adequate fluids. * Exercise Frequency: infrequently. * Depression/Suicide Screening: . * During the past 2 weeks, the patient has not felt down, depressed or hopeless. * During the past 2 weeks, the patient has not felt little interest or pleasure in doing things. * Hearing Impairment: none. * Cognitive Impairment: No cognitive impairment observed, patient or family reported no cognitive impairment. * Bathing: performs independently. * Dressing: performs independently. * Walking: performs independently. * Toileting: performs independently. * Feeding: performs independently. * Personal Hygiene: performs independently. * Managing Finances: performs independently. * Shopping: performs independently. * Managing Medications: performs independently. * Housework / Basic Home Maintenance: performs independently. * Handling Transportation: performs independently. * Preparing Meals: performs independently. * Using the Telephone/ Communication Devices: performs independently. * Falls Risk Screening:. CHRISTINE has fallen in the last 6 months. Her fall resulted in the following injury: 2 goose eggs on back of head with first fall, goose egg on forhead with 2nd fall. * Home safety risk factors: none. * Advance directives:. Advanced Care Planning discussed and documented advance care plan or surrogatedecision maker documented in the medical record. Patient has living will. Patient has healthcare POA. * Patient's End of Life Decisions: End of life decisions were reviewed with the patient. I agree to follow the patient's decisions. Concerns with the patient's end of life decisions: DNR. * Patient is here for follow-up. * Patient had significant life changing events in the last three weeks. * His son and is in the hospital. Additionally, her good neighbor is as well. * Reports that her neck pain and arthritis in other joints of the body are worsening. She has sustained a fall recently due to which her lower back pain is worsening. She has been to pain management physician. He has ordered an MRI. It is pending. Reports that the current regimen with tramadol is mode rately helpful. However there are times that her pain is significantly worse. She is ending up taking Tylenol and ibuprofen additionally those days. * Hand pain worse too. * Plan: Discussed at length about the options of treatment. Started Maloxicam to be taken along with Tramadol in the past. Discussed the potential risk for affecting kidney function, causing gastritis and other potential side effects. Recommended to use it with caution. * May need to consider discussing about her mood and management of more related conditions if needed. * Hypertension blood pressure is elevated today. Patient reports that she has been under a lot of stress lately. Additionally she has pain which is not well controlled at this time. * Plan: Recommended to check blood pressure at home. If persistently elevated then will consider changing blood pressure medication. Patient does not want to change her blood pressure medication at this time. * Hypothyroidism: TSH was normal in September 2021. We will continue with the current regimen. * Follow-up in 3 months. Sooner if worsening of symptoms. * I have personally reviewed the OARRS report for CHRISTINE MAYS. I have considered the risks of abuse,dependence, addiction and diversion. * I have the following concerns: no. * Is the patient prescribed a combination of a benzodiazepine and opioid? No. * Last urine drug screening date/ordered today: 05/07/2022 * Results of last screen: Results as expected. * Date of the last Controlled Substance Agreement: 05/07/2022 * OPIOID * What is the patient s goal of therapy? back pain control. * Is this being achieved with current treatment? yes. * Attestation statement: I feel that it is clinically indicated to continue this current medication regimen after consideration of alternative therapies, and other non-opioid treatments. * Opioid Risk Screening: * Opioid Risk Tool * Last opioid risk screening date/ordered today: 08/30/2020 * Family history of substance abuse: Alcohol = 1 * Patient's total score is 1, within range of Low Risk (<= 3). * Pain Scale Screening: * Pain Assessment and Documentation Tool (PADT) * Date of Assessment: 05/07/2022 * Analgesia: * Patient reports her pain level on average during the past week is 8 on a 0 - 10 scale. * Patient reports that her pain level at its worst during the past week was 10 on a 0 -10 scale. * 50% % of pain has been relieved during the past week per patient * Patient states that the amount of pain relief she is now obtaining from her current pain reliever(s) is enough to make a real difference in her life. * Query to clinician: Is the patient's pain relief clinically significant? Yes * Activities of Daily Living: * Physical functioning: Worse * Family relationships: Same * Social relationships: Same * Mood: Worse * Sleep patterns: Worse * Overall functioning: Same * Adverse Events: * No, CHRISTINE MAYS is not experiencing side effects from current pain reliever. * Patients overall severity of side effect: None * Is your overall impression that this patient is benefiting (e.g., benefits, such as pain relief, outweigh side effects) from opioid therapy? Yes. * I have calculated the patient's Morphine Dose Equivalent (MED): * I have considered referral to Pain Management and/or a specialist, and do not feel it is necessary at this time. -[facility] Work Phone: History of Present illness Narrative* Patient is here for evaluation of her lower back pain and pain radiating to her bilateral lower extremities. She sustained a fall in late December and since then she has been having pain. However she feels that the pain and symptoms are progressively worsening. She currently has weakness that she is experiencing in bilateral lower extremities along with the pain. It is especially worse in the mornings takes a while to feel better. The weakness in her lower extremities is most bothersome to her at this point. She denies saddle anesthesia, bowel or bladder control loss. Reports that she had an x-ray which did not show any significant abnormalities. * Plan: Given the weakness that she is experiencing which is new from before I will order an MRI. Starting physical therapy. Dr. Hanna - neurosurgery, [place], [place]-if referral is needed. * Follow up in 1 month. -[facility] Work Phone: History of Present illness Narrative* Patient is here for evaluation of her lower back pain and pain radiating to her bilateral lower extremities. She sustained a fall in late December and since then she has been having pain. However she feels that the pain and symptoms are progressively worsening. She currently has weakness that she is experiencing in bilateral lower extremities along with the pain. It is especially worse in the mornings takes a while to feel better. The weakness in her lower extremities is most bothersome to her at this point. She denies saddle anesthesia, bowel or bladder control loss. Reports that she had an x-ray which did not show any significant abnormalities. * Given the weakness that she is experiencing which is new from before- MRI was ordered. MRI showed * "IMPRESSION: * Multilevel degenerative disc disease and facet arthrosis most pronounced at L4-L5 with grade 1 anterolisthesis, moderate spinal canal stenosis and mild bilateral neural foraminal stenosis. Degenerative changes are increased since the prior exam 04/08/2016." * She is going to Dr. Hanna - neurosurgery, [place], [place]. Has appointment tomorrow. * Reports that she is experiencing dizziness with Tramadol. Discussed that all opiates can possibly do this. * Wants to establish care with pain management - referral provided. * Follow up in 3 months. * I have personally reviewed the OARRS report for CHRISTINE MAYS. I have considered the risks of abuse,dependence, addiction and diversion. * I have the following concerns: no. * Is the patient prescribed a combination of a benzodiazepine and opioid? No. * Last urine drug screening date/ordered today: 05/07/2022 * Results of last screen: Results as expected. * Date of the last Controlled Substance Agreement: 05/07/2022 * OPIOID * What is the patient s goal of therapy? back pain control. * Is this being achieved with current treatment? yes. * Attestation statement: I feel that it is clinically indicated to continue this current medication regimen after consideration of alternative therapies, and other non-opioid treatments. * Opioid Risk Screening: * Opioid Risk Tool * Last opioid risk screening date/ordered today: 08/30/2020 * Family history of substance abuse: Alcohol = 1 * Patient's total score is 1, within range of Low Risk (<= 3). * Pain Scale Screening: * Pain Assessment and Documentation Tool (PADT) * Date of Assessment: 07/22/2022 * Analgesia: * Patient reports her pain level on average during the past week is 9 on a 0 - 10 scale. * Patient reports that her pain level at its worst during the past week was 10 on a 0 -10 scale. * 50% % of pain has been relieved during the past week per patient * Patient states that the amount of pain relief she is now obtaining from her current pain reliever(s) is enough to make a real difference in her life. * Query to clinician: Is the patient's pain relief clinically significant? Yes * Activities of Daily Living: * Physical functioning: Worse * Family relationships: Same * Social relationships: Same * Mood: Same * Sleep patterns: Same * Overall functioning: Same * Adverse Events: * No, CHRISTINE MAYS is not experiencing side effects from current pain reliever. * Patients overall severity of side effect: None * Is your overall impression that this patient is benefiting (e.g., benefits, such as pain relief, outweigh side effects) from opioid therapy? Yes. * I have calculated the patient's Morphine Dose Equivalent (MED): * I have considered referral to Pain Management and/or a specialist, and do not feel it is necessary at this time. -[facility] Work Phone: History of Present illness Narrative* The patient is being seen for the subsequent annual wellness visit. * Past Medical, Surgical and Family History: reviewed and updated in chart. * Medications and Supplements: Review of all medications by a prescribing practitioner or clinical pharmacist (such as prescriptions, OTCs, herbal therapies and supplements) documented in the medical record. * Yes, the patient is using opioids. * Patient Self Assessment of Health Status: good. * Tobacco use: Non-User * Alcohol use: Non-User * Illicit drug use: Non-User * Current diet: well balanced diet, does consume adequate fluids and does consume caffeine. * Exercise Frequency: infrequently. * Depression/Suicide Screening: . * During the past 2 weeks, the patient has not felt down, depressed or hopeless. * During the past 2 weeks, the patient has not felt little interest or pleasure in doing things. * Hearing Impairment: none. * Cognitive Impairment: No cognitive impairment observed, patient or family reported no cognitive impairment. * Bathing: performs independently. * Dressing: performs independently. * Walking: performs independently. * Toileting: performs independently. * Feeding: performs independently. * Personal Hygiene: performs independently. * Bowels: continent. * Bladder: continent. * Managing Finances: performs independently. * Shopping: performs independently. * Managing Medications: performs independently. * Housework / Basic Home Maintenance: performs independently. * Handling Transportation: performs independently. * Preparing Meals: performs independently. * Using the Telephone/ Communication Devices: performs independently. * Falls Risk Screening:. CHRISTINE has not fallen in the last 6 months. * Home safety risk factors: loose rugs. * Advance directives:. Advanced Care Planning discussed and documented advance care plan or surrogatedecision maker documented in the medical record. Patient has living will. Patient has healthcare POA. * Patient's End of Life Decisions: End of life decisions were reviewed with the patient. I agree to follow the patient's decisions. [facility] Work Phone: History of Present illness Narrative* Encounter Date Complaint History Of Prese nt Illness No Information [facility] Work Phone: Hospital Discharge instructions* Attachments The following attachments cannot be sent through Care Everywhere. * DVT (Deep Vein Thrombosis): Prevention: General Info (Nepalese) * Incentive Spirometer: General Info (Nepalese) * Fall Prevention (Nepalese) * Opioid Use Disorder: General Info (Nepalese) * Constipation (Nepalese) [facility]* Name Dates Details Instructions not documented [facility] Work Phone: Instructions* Date Instruction Additional Infor mation No Information [facility] Phone: Progress note* Clinical Note Date No Information [facility] [facility] Work Phone: Reason for referral (narrative)* Consultation (Routine) - Authorized Specialty Diagnoses / Procedures Referred By Nika tobar Referred To Contact Primary Care Procedures Follow Up In Primary Care - Established Kyler Wetzel PA-C [address] [place] [address] Referral ID Status Reason Start Date Expiration Date V isits Requested Visits Authorized [id number] Authorized 05/03/2024 05/03/2025 1 1 * Consultation (Routine) - Authorized Specialty Diagnoses / Procedures Referred By Nika tobar Referred To Contact Primary Care Diagnoses Routine general medical examination at health care facility Procedures 1 Year Follow Up In Primary Care - Wellness Exam Kyler Wetzel PA-C [address] [place] [address] Referral ID Status Reason Start Date Expiration Date V isits Requested Visits Authorized [id number] Authorized 05/03/2024 05/03/2025 1 1 [facility] Work Phone: Reason for referral (narrative)* Reason For Referral No Information [facility] Work Phone: Assessments Diagnosis SVT (supraventricular tachyc ardia) ([facility]) - Primary Other specified cardiac dysrhythmias Essential hypertension Unspecified essential hypertension Diagnosis Abnormal laboratory test - P rimary Other abnormal clinical finding Elevated rheumatoid factor Other and unspecified nonspecific immunological findings Polyarthralgia Pain in joint, multiple sites Diagnosis Degenerative arthritis of fi nger, left - Primary Diagnosis Neck pain - Primary Cervicalgia Diagnosis Pseudoclaudication syndrome Spinal stenosis, lumbar region, with neurogenic claudication Diagnosis Varicose veins of bilateral lower extremities with other complications- Primary Elevated blood pressure reading Elevated blood pressure reading without diagnosis of hypertension Summary Purpose Family History No Family History Records Found Mother Name Dates Details Family history of cardiac di sorder(V17.49, Z82.49) Status:Active Father Name Dates Details Family history of cardiac di sorder(V17.49, Z82.49) Status:Active Brother Name Dates Details Family history of cardiac di sorder(V17.49, Z82.49) Status:Active Mother Name Dates Details Family history of cardiac di sorder(V17.49, Z82.49) Status:Active Father Name Dates Details Family history of cardiac di sorder(V17.49, Z82.49) Status:Active Brother Name Dates Details Family history of cardiac di sorder(V17.49, Z82.49) Status:Active Mother Name Dates Details Family history of cardiac di sorder(V17.49, Z82.49) Status:Active Father Name Dates Details Family history of cardiac di sorder(V17.49, Z82.49) Status:Active Brother Name Dates Details Family history of cardiac di sorder(V17.49, Z82.49) Status:Active Mother Name Dates Details Family history of cardiac di sorder(V17.49, Z82.49) Status:Active Father Name Dates Details Family history of cardiac di sorder(V17.49, Z82.49) Status:Active Brother Name Dates Details Family history of cardiac di sorder(V17.49, Z82.49) Status:Active Unknown Family Member Name Dates Details Family history of cardiac di sorder: Mother, Father, Brother(V17.49, Z82.49) Status:Active Unknown Family Member Name Dates Details Family history of cardiac di sorder: Mother, Father, Brother(V17.49, Z82.49) Status:Active Unknown Family Member Name Dates Details Family history of cardiac di sorder: Mother, Father, Brother(V17.49, Z82.49) Status:Active Unknown Family Member Name Dates Details Family history of cardiac di sorder: Mother, Father, Brother(V17.49, Z82.49) Status:Active Unknown Family Member Name Dates Details Family history of cardiac di sorder: Mother, Father, Brother(V17.49, Z82.49) Status:Active Unknown Family Member Name Dates Details Family history of cardiac di sorder: Mother, Father, Brother(V17.49, Z82.49) Status:Active Unknown Family Member Name Dates Details Family history of cardiac di sorder: Mother, Father, Brother(V17.49, Z82.49) Status:Active Unknown Family Member Name Dates Details Family history of cardiac di sorder: Mother, Father, Brother(V17.49, Z82.49) Status:Active Unknown Family Member Name Dates Details Family history of cardiac di sorder: Mother, Father, Brother(V17.49, Z82.49) Status:Active Unknown Family Member Name Dates Details Family history of cardiac di sorder: Mother, Father, Brother(V17.49, Z82.49) Status:Active Unknown Family Member Name Dates Details Family history of cardiac di sorder: Mother, Father, Brother(V17.49, Z82.49) Status:Active Unknown Family Member Name Dates Details Family history of cardiac di sorder: Mother, Father, Brother(V17.49, Z82.49) Status:Active Unknown Family Member Name Dates Details Family history of cardiac di sorder: Mother, Father, Brother(V17.49, Z82.49) Status:Active Unknown Family Member Name Dates Details Family history of cardiac di sorder: Mother, Father, Brother(V17.49, Z82.49) Status:Active Unknown Family Member Name Dates Details Family history of cardiac di sorder: Mother, Father, Brother(V17.49, Z82.49) Status:Active Unknown Family Member Name Dates Details Family history of cardiac di sorder: Mother, Father, Brother(V17.49, Z82.49) Status:Active Unknown Family Member Name Dates Details Family history of cardiac di sorder: Mother, Father, Brother(V17.49, Z82.49) Status:Active Unknown Family Member Name Dates Details Family history of cardiac di sorder: Mother, Father, Brother(V17.49, Z82.49) Status:Active Unknown Family Member Name Dates Details Family history of cardiac di sorder: Mother, Father, Brother(V17.49, Z82.49) Status:Active Unknown Family Member Name Dates Details Family history of cardiac di sorder: Mother, Father, Brother(V17.49, Z82.49) Status:Active Unknown Family Member Name Dates Details Family history of cardiac di sorder: Mother, Father, Brother(V17.49, Z82.49) Status:Active Unknown Family Member Name Dates Details Family history of cardiac di sorder: Mother, Father, Brother(V17.49, Z82.49) Status:Active Mother Name Dates Details Family history of cardiac di sorder(V17.49, Z82.49) Status:Active Father Name Dates Details Family history of cardiac di sorder(V17.49, Z82.49) Status:Active Brother Name Dates Details Family history of cardiac di sorder(V17.49, Z82.49) Status:Active Unknown Family Member Name Dates Details Family history of cardiac di sorder: Mother, Father, Brother(V17.49, Z82.49) Status:Active Unknown Family Member Name Dates Details Family history of cardiac di sorder: Mother, Father, Brother(V17.49, Z82.49) Status:Active Unknown Family Member Name Dates Details Family history of cardiac di sorder: Mother, Father, Brother(V17.49, Z82.49) Status:Active Unknown Family Member Name Dates Details Family history of cardiac di sorder: Mother, Father, Brother(V17.49, Z82.49) Status:Active Unknown Family Member Name Dates Details Family history of cardiac di sorder: Mother, Father, Brother(V17.49, Z82.49) Status:Active Unknown Family Member Name Dates Details Family history of cardiac di sorder: Mother, Father, Brother(V17.49, Z82.49) Status:Active Unknown Family Member Name Dates Details Family history of cardiac di sorder: Mother, Father, Brother(V17.49, Z82.49) Status:Active Unknown Family Member Name Dates Details Family history of cardiac di sorder: Mother, Father, Brother(V17.49, Z82.49) Status:Active Unknown Family Member Name Dates Details Family history of cardiac di sorder: Mother, Father, Brother(V17.49, Z82.49) Status:Active Unknown Family Member Name Dates Details Family history of cardiac di sorder: Mother, Father, Brother(V17.49, Z82.49) Status:Active Unknown Family Member Name Dates Details Family history of cardiac di sorder: Mother, Father, Brother(V17.49, Z82.49) Status:Active Unknown Family Member Name Dates Details Family history of cardiac di sorder: Mother, Father, Brother(V17.49, Z82.49) Status:Active Unknown Family Member Name Dates Details Family history of cardiac di sorder: Mother, Father, Brother(V17.49, Z82.49) Status:Active Unknown Family Member Name Dates Details Family history of cardiac di sorder: Mother, Father, Brother(V17.49, Z82.49) Status:Active Unknown Family Member Name Dates Details Family history of cardiac di sorder: Mother, Father, Brother(V17.49, Z82.49) Status:Active Unknown Family Member Name Dates Details Family history of cardiac di sorder: Mother, Father, Brother(V17.49, Z82.49) Status:Active Unknown Family Member Name Dates Details Family history of cardiac di sorder: Mother, Father, Brother(V17.49, Z82.49) Status:Active Unknown Family Member Name Dates Details Family history of cardiac di sorder: Mother, Father, Brother(V17.49, Z82.49) Status:Active Unknown Family Member Name Dates Details Family history of cardiac di sorder: Mother, Father, Brother(V17.49, Z82.49) Status:Active Unknown Family Member Name Dates Details Family history of cardiac di sorder: Mother, Father, Brother(V17.49, Z82.49) Status:Active Unknown Family Member Name Dates Details Family history of cardiac di sorder: Mother, Father, Brother(V17.49, Z82.49) Status:Active Unknown Family Member Name Dates Details Family history of cardiac di sorder: Mother, Father, Brother(V17.49, Z82.49) Status:Active Family Member Type Diagnosis Age At Onset No Information Advance Directives No Advanced Directives Records FoundDocuments on File Type Date Recorded Patient Teaching Associate Expl anation Living Will 04/19/2009 Date Activated Date Inactivated Comments 04/19/2023 12:31 AM 04/21/2023 9:17 PM Documents on File Type Date Recorded Patient Teaching Associate Expl anation Advance Directives and Livin g Will 10/20/2020 10:49 AM Documents on File Type Date Recorded Patient Teaching Associate Expl anation Advance Directives and Livin g Will 10/20/2020 10:49 AM Documents on File Type Date Recorded Patient Teaching Associate Expl anation Advance Directives and Living Will 10/19/2021 10:49 AM NO COPY IN [facility] Documents on File Type Date Recorded Patient Teaching Associate Expl anation Advance Directives and Living Will 04/19/2009 Documents on File Type Date Recorded Patient Teaching Associate Expl anation Living Will 04/19/2009 Latest Code Status on File Code Status Date Activated Date Inactivated Comments Full Code - Default 04/03/2023 3:19 PM 04/05/2023 4:46 P M This is order is used when code status has not been discussed with the patient, or code status is otherwise unknown/unconfirmed To update the patient's code status, place a code status order. Do not modify or discontinue any currently active code status orders. Latest Code Status on File Code Status Date Activated Date Inactivated Comments DNR and No Intubation 04/19/2023 12:31 AM 04/21/2023 9:1 7 PM Latest Code Status on File Code Status Date Activated Date Inactivated Comments DNR and No Intubation 04/19/2023 12:31 AM 04/21/2023 9:1 7 PM Date Activated Date Inactivated Comments 11/25/2023 4:57 PM 11/29/2023 7:27 PM Date Activated Date Inactivated Comments 11/25/2023 4:57 PM 11/29/2023 7:27 PM Date Activated Date Inactivated Comments 04/19/2023 12:31 AM 04/21/2023 9:17 PM Directive Yes / No Effective Date File Name No Information Reason for Referral Status Reason Specialty Diagnoses / Procedures Referred By Contact Referred To Contact Closed Magnetic Resonan ce Imaging Diagnoses Pseudoclaudication syndrome Procedures MRI SPINE LUMBAR WITHOUT CONTRAST MD MRI, LUMBAR SPINE Rolando Hanna DO [address] [place] [address] [facility] [address] [place] [address] Status Reason Specialty Diagnoses / Procedures Referred By Contact Referred To Contact Authorized Rehabilitation Diagnoses Spondylolisthesis of lumbar region Spinal stenosis, lumbar region, with neurogenic claudication Lumbar radiculopathy Rolando Hanna, [address] [place] [address] [facility] [address] [place] [address] Specialty Diagnoses / Procedures Referred By Contac t Referred To Contact Rehabilitation Diagnoses Neck pain Upper back pain Emmanuel Ricketts MD [address] [place] [address] [facility] [address] [place] [phone] Referral ID Status Reason Start Date Expiration Date V isits Requested Visits Authorized [id number] Authorized 12/05/2021 12/05/2022 1 199 Specialty Diagnoses / Procedures Referred By Contac t Referred To Contact Rehabilitation Diagnoses Other forms of scoliosis, lumbar region Lumbar radiculopathy Spinal stenosis, lumbar region, with neurogenic claudication Spondylolisthesis of lumbar region Rolando Hanna, DO [address] [place] [address] [facility] [address] [place] [address] Referral ID Status Reason Start Date Expiration Date V isits Requested Visits Authorized [id number] Authorized 10/08/2022 10/08/2023 1 1 Specialty Diagnoses / Procedures Referred By Contac t Referred To Contact Radiology Diagnoses Chronic low back pain, unspecified back pain laterality, unspecified whether sciatica present Procedures XR lumbar spine 2-3 views Kyler Wetzel PA-C [address] [facility] [place] [address] Referral ID Status Reason Start Date Expiration Date Visits Requested Visits Authorized [id number] Authorized Perform Procedure 3 06/18/2024 1 1 Specialty Diagnoses / Procedures Referred By Carolac t Referred To Contact Home Health Services Diagnoses Closed nondisplaced fracture of surgical neck of left humerus, unspecified fracture morphology, initial encounter Encounter for post fall examination Hypokalemia Humerus head fracture, left, with routine healing, subsequent encounter Neck pain Lumbar radiculopathy Spinal stenosis, lumbar region with neurogenic claudication Spondylolisthesis of lumbar region S/P trigger finger release Ganglion of flexor tendon sheath of left thumb Trigger finger, left little finger Disease of thyroid gland Heart palpitations Trigger finger, left middle finger Primary osteoarthritis of left wrist Left carpal tunnel syndrome Left wrist pain Nayely Mae MD [address] [place] [address] Referral ID Status Reason Start Date Expiration Date Visits Requested Visits Authorized [id number] Authorized Patient Preference 11/27/2023 11/26/2024 1 1 Specialty Diagnoses / Procedures Referred By Carolac t Referred To Contact Diagnoses Humerus head fracture, left, with routine healing, subsequent encounter Avery Das MD [address] [place] [address] Referral ID Status Reason Start Date Expiration Date Visits Re quested Visits Authorized [id number] Closed 1 1 Referral ID Status Reason Start Date Expiration Date Visits Re quested Visits Authorized [id number] Closed 1 1 Referral ID Status Reason Start Date Expiration Date Visits Re quested Visits Authorized [id number] Closed 1 1 Referral ID Status Reason Start Date Expiration Date Visits Re quested Visits Authorized [id number] Closed 1 1 Referral ID Status Reason Start Date Expiration Date Visits Re quested Visits Authorized [id number] Closed 1 1 Referral ID Status Reason Start Date Expiration Date Visits Re quested Visits Authorized [id number] Closed 1 1 Specialty Diagnoses / Procedures Referred By Contac t Referred To Contact Diagnoses Humerus head fracture, left, with routine healing, subsequent encounter Khoa Luther MD [address] [id number] Referral ID Status Reason Start Date Expiration Date Visits Re quested Visits Authorized [id number] Closed 1 1 Specialty Diagnoses / Procedures Referred By Contac t Referred To Contact Diagnoses Humerus head fracture, left, with routine healing, subsequent encounter Avery Das MD [address] [place] [address] Referral ID Status Reason Start Date Expiration Date Visits Re quested Visits Authorized [id number] Closed 1 1 Specialty Diagnoses / Procedures Referred By Contac t Referred To Contact Diagnoses S/P hardware removal Humerus head fracture, left, with routine healing, subsequent encounter Avery Das MD [address] [place] [address] Referral ID Status Reason Start Date Expiration Date Visits Re quested Visits Authorized [id number] Closed 1 1 Discharge Instructions * Instructions* Arturo Oliveira MD - 10/20/2020 Wear compression stockings. Elevate legs when off your feet. If veins start bleeding apply direct pressure for 5 minutes if it does not stop bleeding come back to ER. Your blood pressure is elevated in ER. Check your blood pressure at home and record readings. Bring readings to doctor. Stay on low sodium diet. Call your doctor for follow up appointment. * Attachments The following attachments cannot be sent through Care Everywhere. * Compression Stockings: General Info (Nepalese) * Varicose Veins (Nepalese) * Blood Pressure: Elevated (Nepalese) documented in this encounter Chief Complaint * The patient presents to the office today for a routine follow up exam. * The patient presents for evaluation of varicose veins and limb swelling . vein bleed. * The patient is referred by: Liliam, Primary Care Physician. 3 month ov, discuss alendronate sodium, not currently taking,.3 month ov, discuss alendronate sodium, not currently taking,.3 month ov, discuss alendronate sodium, not currently taking,.* The patient presents to the office today for a routine follow up exam. * The patient presents for evaluation of varicose veins and limb swelling . vein bleed. * The patient is referred by: Liliam, Primary Care Physician. * The patient presents to the office today for a routine follow up exam. * The patient presents for evaluation of varicose veins and limb swelling . vein bleed. * The patient is referred by: Liliam, Primary Care Physician. 3 month med check, discuss back pain.3 month med check, discuss back pain.3 month ov, R hand joint pain x3 months, R shoulder pain x8 months.pt c/o dizziness.2 week f/u.pt. c/o neck and shoulder pain x6 weeks.pt. c/o shoulder, neck, and head pain.3 mth ov, AWVPain in back and legs* 4 wk ov * Has questions about tramadol * 3 mth ov * AWV * C/O vertigo off and on * 3 mth ov * AWV * C/O vertigo off and on Additional Source Comments INFORMATION SOURCE (unrecogn ized section and content) DATE CREATED AUTHOR 01/08/2018 [facility] DATE CREATED AUTHOR AUTHOR'S ORGANIZ ATION 12/24/2018 [facility] DATE CREATED AUTHOR AUTHOR'S ORGANIZ ATION 04/26/2019 [facility] DATE CREATED AUTHOR AUTHOR'S ORGANIZ ATION 04/25/2022 [facility] DATE CREATED AUTHOR AUTHOR'S ORGANIZ ATION 06/26/2022 [email or web address] DATE CREATED AUTHOR AUTHOR'S ORGANIZ ATION 04/01/2023 [facility] DATE CREATED AUTHOR AUTHOR'S ORGANIZ ATION 04/07/2023 [facility] DATE CREATED AUTHOR AUTHOR'S ORGANIZ ATION 04/23/2023 [facility] DATE CREATED AUTHOR AUTHOR'S ORGANIZ ATION 03/04/2024 [facility] DATE CREATED AUTHOR AUTHOR'S ORGANIZ ATION 04/04/2024 [facility] DATE CREATED AUTHOR AUTHOR'S ORGANIZ ATION 07/05/2024 [facility] DATE CREATED AUTHOR AUTHOR'S ORGANIZ ATION 09/17/2024 [facility] DATE CREATED AUTHOR AUTHOR'S ORGANIZ ATION 10/19/2024 [facility] DATE CREATED AUTHOR AUTHOR'S ORGANIZ ATION 02/03/2025 [facility] Reason for Visit (unrecogniz ed section and content) Status Reason Specialty Diagnoses / Procedures Referred By Contact Referred To Contact Closed Magnetic Resonan ce Imaging Diagnoses Pseudoclaudication syndrome Procedures MRI SPINE LUMBAR WITHOUT CONTRAST MD MRI, LUMBAR SPINE Rolando Hanna, DO [address] [place] [address] [facility] [address] [place] [address] Reason Comments Wound Check Reason Comments Pain Reason Comments Physical Therapy Specialty Diagnoses / Procedures Referred By Contac t Referred To Contact Rehabilitation Diagnoses Spondylolisthesis of lumbar region Spinal stenosis, lumbar region, with neurogenic claudication Lumbar radiculopathy Rolando Hanna, [address] [place] [address] [facility] [address] [place] [address] Referral ID Status Reason Start Date Expiration Date V isits Requested Visits Authorized [id number] Pending Review 02/15/2021 02/15/2022 9 9 Referral ID Status Reason Start Date Expiration Date V isits Requested Visits Authorized [id number] Authorized 02/15/2021 02/15/2022 9 9 Reason Comments Nail Care Nail and callus care . Reason Onset Date Comments Medication Refill 07/30/2021 Specialty Diagnoses / Procedures Referred By Contac t Referred To Contact Rehabilitation Diagnoses Neck pain Upper back pain Emmanuel Ricketts MD [address] [place] [address] [facility] [address] [place] [address] Referral ID Status Reason Start Date Expiration Date V isits Requested Visits Authorized [id number] Authorized 12/05/2021 12/05/2022 9 199 Reason Comments Nail Problem Left great toenail h ad drainage last when she got a pedicure. Nail is yellow. Results Patient had a dopple r a month ago. Needs to go over results. Reason Comments Pain Thumb pain New Patient Thumb pain Reason Comments Medication Refill Reason Comments Follow-up L 3rd toe hammmer to e - pt would like to discuss sx - and would like callus care Reason Comments Procedure L 3rd toe tenotomy Reason Comments Post-op L 3rd toe tenotomy- pt is doing well Reason Comments Follow-up Remove remaining sti tches; minimal pain Specialty Diagnoses / Procedures Referred By Contlibia t Referred To Contact Rehabilitation Diagnoses Other forms of scoliosis, lumbar region Lumbar radiculopathy Spinal stenosis, lumbar region, with neurogenic claudication Spondylolisthesis of lumbar region Rolando Hanan, DO [address] [place] [address] [facility] [address] [address] [address] [place] [address] Referral ID Status Reason Start Date Expiration Date V isits Requested Visits Authorized [id number] Authorized 10/08/2022 10/08/2023 9 9 Reason Comments Medicare Annual Wellness Visit Subsequen t 3 month / AWV. Results from the surgeon. Discuss arthritis Reason Comments med check Needs a bone density ordered Reason Comments Post-op PO tenotomy left 3rd toe Specialty Diagnoses / Procedures Referred By Contlibia t Referred To Contact Diagnoses Other forms of scoliosis, lumbar region Spinal stenosis, lumbar region with neurogenic claudication Radiculopathy, lumbar region M41.86 M48.062 M54.16 Procedures MD HERNANDEZ FACETECTOMY/FORAMINOTOMY DUR POST I-B ARTHRDS LUMBAR EA ADD SEGM MD HERNANDEZ FACETECTOMY & FORAMINOTOMY SINGLE VERTEBRAL SEGMENT LUMBAR MD ARTHRDS W POST I-B TECH INCL HERNANDEZ/DISCECTOMY PREP INTERSPACE SINGLE LUMB MD ARTHRODESIS POST/POSTEROLATERAL TECH SGL INTERSPACE EACH ADDL INTERSPACE MD INS I-B BIOMECH DEV TO IV DISC SPACE CONJ W/I-B ARTHRDS EA INTERSPACE MD INSTRUMENTATION POSTERIOR SEGMENTAL 3 TO 6 VERTEBRAL SEGMENTS MD ALLOGRAFT MORSELIZED/PLACEMENT OSTEOPROMOTIVE MAT SPINE SURGERY ONLY MD AUTOGRAFT SPINE SURGERY ONLY LOCAL OBTAINED FROM SAME INCISION L3-L5 Laminectomy, posterior spinal fusion with intrumentation, posterior lumbar interbody fusion Rolando Hanna, DO [address] [place] [address] Ted Eisenberg Or [address] [place] [address] Referral ID Status Reason Start Date Expiration Date Visits Re quested Visits Authorized [id number] 1 1 Reason Comments Other Other pulmonary embo lism without acute cor pulmonale Specialty Diagnoses / Procedures Referred By Contac t Referred To Contact Diagnoses Other pulmonary embolism without acute cor pulmonale (CMS/HCC) Procedures Inpatient Radhames Morrison MD [address] [place] [address] [address] [id number] Referral ID Status Reason Start Date Expiration Date Visits Re quested Visits Authorized [id number] 1 1 Specialty Diagnoses / Procedures Referred By Contac t Referred To Contact Diagnoses Other pulmonary embolism without acute cor pulmonale (CMS/HCC) Procedures Inpatient Radhames Morrison MD [address] [place] [address] [place] [address] Reason Comments pt passed out and landed on the floor Pt just had back surgery and would like xray to make sure nothing was injured with the fall- pt is having back pain Reason Comments med check PT is here today for a med check. Did not get blood work but does not remember if she was suppose to. Reason Comments Fall PT reports she passe d out 07/19/23 and hurt her left leg from her knee down to her ankle. Reports she got up cause she had a really bad raquel horse and got up really quickly out of bed and also had to go to the bathroom and fell. ER put her on the blood thinner and she does not know if she needs to continue taking it, told her the first time she passed out it was due to passing a small blood clot, wants to know if she needs to continue to take it. Reason Comments Foot Pain Patient presents for left foot pain. Duration three days. Heel area. Patient denies accident or injury .Patient reports swelling in bilateral ankles. Duration a month Reason Comments Fall Specialty Diagnoses / Procedures Referred By Nika tobar Referred To Contact Referral ID Status Reason Start Date Expiration Date Visits Re quested Visits Authorized [id number] 01/15/2017 01/15/2018 1 1 Reason Onset Date Comments Medication Refill 12/01/2023 Reason Onset Date Comments Medication Refill 12/12/2023 Reason Comments Follow-up Suture / Staple Removal Reason Onset Date Comments Medication Refill 12/19/2023 Reason Onset Date Comments Medication Refill 12/26/2023 Reason Onset Date Comments Medication Refill 01/02/2024 Reason Onset Date Comments Medication Refill 01/09/2024 Reason Comments Fracture Follow-up Reason Onset Date Comments Medication Refill 01/23/2024 Reason Onset Date Comments Medication Refill 02/02/2024 Reason Comments Follow-up Fracture Reason Onset Date Comments Medication Refill 02/20/2024 Reason Onset Date Comments Medication Refill 03/26/2024 Reason Comments Follow-up Reason Comments Follow-up L foot calluses - pt states that the calluses are painful and the horseshoe pad she was wearing "peeled" the skin off of her foot Reason Comments Medicare Annual Wellness Visit Laurenceen t Pt here for med check , please discuss her BP medications not sure if she should be taking all of the ones that are prescribed Reason Comments Calluses Left foot calluses v kandi painful Reason Comments Follow-up Pt is here today for 2 week FUV. TSH needs ordered. Lipids good 11/21/27. Dexa good 12/06/24. Reports her Home Health Nurse told her that her BP has been running high. It was 168/90 yesterday. Did bring in BP log. Reason Comments Foot Pain Pt C/O wound on left bottom of foot. Pt states she has been applying otc neosporin to affected area Lulu Pena RN - 10/20/2020 11:01 AM Arturo Marrufo MD - 10/20/2020 10:48 AM Lulu Marroquin RN - 10/20/2020 10:31 AM EDT ED Notes (unrecognized secti on and content) Wound open to air, bleeding controlled. Patient verbalized understanding of compression and elevation if needed applying a pressure dressing. NAD noted. Ambulated independently out of ED with grandson. [place] ED Physician Note: NAME: Christine Mays 75 y.o. CSN: [id number] PCP: Andrew Pitts MD ED Course / Medical Decision Making: Patient had a superficial varicosity of the right lower extremity which had bled earlier this morning. This is since stopped because she applied direct pressure. There is no sign of any infection. No intervention was needed today in the ER. Patient was told to wear compression stockings keep her legs elevated. She has rebleeding she is to apply direct pressure for 5 minutes. If worsening symptoms come back to the ER. She does have elevated blood pressure today. She has a history of hypertension she did not take her blood pressure medication today. She is encouraged to stay on low-sodium diet. She is to check her blood pressure at home and follow-up with her primary care physician. At this time no lab work or imaging is indicated. Patient understands discharge instructions and is comfortable going home. MDM Clinical Impression: 1. Varicose veins of bilateral lower extremities with other complications 2. Elevated blood pressure reading Disposition: Patient is being discharged to home History: Chief Complaint: Wound Check HPI: The history was obtained from the patient. She is a 75 y.o. female who presents with a chief complaint of Wound Check. HPI patient came in for a bleeding varicosity of her right lower leg. When she arrived the bleeding had stopped because she applied direct pressure. She is not on any blood thinners but does take a lot of anti-inflammatories for back pain. She currently does not have any symptoms. There is no redness or drainage from the bleeding varicosity. PMHx: Past Medical History: Diagnosis Date Anxiety Chronic back pain DDD (degenerative disc disease), lumbar Disease of thyroid gland Headache, tension-type Spinal stenosis PMSx: Past Surgical History: Procedure Laterality Date BREAST REDUCTION CHOLECYSTECTOMY FOOT SURGERY Right HYSTERECTOMY PILONIDAL CYST TRIGGER FINGER RELEASE Left FAM. Hx: Family History Problem Relation Age of Onset Heart disease Father Heart attack Sister Heart disease Brother Heart disease Brother SOC. Hx: Social History Socioeconomic History Marital status: Spouse name: Not on file Number of children: Not on file Years of education: Not on file Highest education level: Not on file Occupational History Not on file Social Needs Financial resource strain: Not on file Food insecurity Worry: Not on file Inability: Not on file Transportation needs Medical: Not on file Non-medical: Not on file Tobacco Use Smoking status: Former Smoker Packs/day: 0.50 Smokeless tobacco: Never Used Substance and Sexual Activity Alcohol use: Yes Comment: wine rarely Drug use: No Sexual activity: Not on file Lifestyle Physical activity Days per week: Not on file Minutes per session: Not on file Stress: Not on file Relationships Social connections Talks on phone: Not on file Gets together: Not on file Attends temple service: Not on file Active member of club or organization: Not on file Attends meetings of clubs or organizations: Not on file Relationship status: Not on file Other Topics Concern Not on file Social History Narrative Not on file MEDs: Previous Medications Medication Sig LORazepam (ATIVAN) 0.5 MG tablet Take 0.5 mg by mouth as needed . tiZANidine (ZANAFLEX) 2 MG tablet Take 2 mg by mouth as needed . atenolol (TENORMIN) 25 MG tablet Take 1 tablet (25 mg total) by mouth daily. atenolol (TENORMIN) 25 MG tablet Take 1 (one) tablet (25 mg total) by mouth daily. HYDROcodone-acetaminophen (NORCO) 5-325 mg per tablet as needed for pain . ibuprofen (ADVIL,MOTRIN) 200 MG tablet Take 400 mg by mouth daily. levothyroxine (SYNTHROID, LEVOTHROID) 112 MCG tablet Take 112 mcg by mouth once daily . naproxen sodium (ALEVE) 220 MG tablet Take 440 mg by mouth daily. traMADol (ULTRAM) 50 mg tablet Take 50 mg by mouth as needed for pain . traZODone (DESYREL) 50 MG tablet Take 50 mg by mouth nightly . triamterene-hydrochlorothiazide (MAXZIDE) 75-50 mg per tablet Takes 1/2 tablet po daily. ALL: Allergies Allergen Reactions Codeine ROS: Review of Systems Constitutional: Negative. Respiratory: Negative for shortness of breath. Cardiovascular: Negative for chest pain. Skin: Positive for wound. Negative for color change, pallor and rash. Neurological: Negative for dizziness. All other systems reviewed and are negative. Positives and pertinent negatives as per HPI. All other systems were reviewed and are negative. Physical Exam: Patient Vitals for the past 24 hrs: BP Temp Temp src Pulse Resp SpO2 Height Weight 10/20/20 1030 (!) 170/87 96 % 10/20/20 1029 (!) 170/87 97.1 F (36.2 C) Tympanic 84 16 96 % 5' 67.6 kg (149 lb) Physical Exam Vitals signs and nursing note reviewed. Constitutional: General: She is not in acute distress. Appearance: Normal appearance. She is not ill-appearing, toxic-appearing or diaphoretic. Skin: Coloration: Skin is not jaundiced or pale. Findings: No bruising, erythema, lesion or rash. Comments: Patient has a lot of superficial varicosities lower extremities. No erythema or swelling or drainage. She had one area that had bled this morning but now is resolved there is no active bleeding. Neurological: Mental Status: She is alert. Laboratory & Radiological Imaging (if done): Labs Reviewed - No data to display No orders to display Procedures: Procedures . Arturo Oliveira MD ED Physician [facility] (Please note that portions of this note have been completed with a voice recognition software. Efforts were made to correct any errors, but occasionally words are mis-transcribed.) Arturo Oliveira MD 10/20/20 1101 This morning, patient had a varicose vein pop and bleed "it was spurting out of my leg for a few minutes." NAD noted, bleeding controlled, patient does state feeling "weakness and short of breathe". VSS, denies any pain at this time. documented in this encounter Care Teams (unrecognized sec tion and content) Chef Instructor Relationship Specialty Start Date End Date Emmanuel Ricketts MD [address] [id number] PCP - General Family Medicine 10/20/20 Chef Instructor Relationship Specialty Start Date End Date Emmanuel Ricketts MD [address] [place] [address] PCP - General Family Medicine 10/20/20 Chef Instructor Relationship Specialty Start Date End Date Emmanuel Ricketts MD [address] [place] [address] PCP - General Family Medicine 10/20/20 Chef Instructor Relationship Specialty Start Date End Date Emmanuel Ricketts MD [address] [place] [address] PCP - General Family Medicine 10/20/20 Chef Instructor Relationship Specialty Start Date End Date Emmanuel Ricketts MD [address] [place] [address] PCP - General Family Medicine 10/20/20 Chef Instructor Relationship Specialty Start Date End Date Emmanuel Ricketts MD [address] [place] [address] PCP - General Family Medicine 10/20/20 Chef Instructor Relationship Specialty Start Date End Date Emmanuel Ricketts MD [address] [place] [address] PCP - General Family Medicine 10/20/20 Chef Instructor Relationship Specialty Start Date End Date Emmanuel Ricketts MD [address] [place] [address], [place] [address] PCP - General Family Medicine 10/20/20 Chef Instructor Relationship Specialty Start Date End Date Emmanuel Ricketts MD [address] [place] [address] PCP - General Family Medicine 10/20/20 Chef Instructor Relationship Specialty Start Date End Date Emmanuel Ricketts MD [address] [place] [address] PCP - General Family Medicine 01/09/22 Chef Instructor Relationship Specialty Start Date End Date Andrew Pitts MD PCP - General Family Medicine 11/25/17 10/19/20 Emmanuel Ricketts MD [address] [place] [address] PCP - General Family Medicine 10/20/20 Chef Instructor Relationship Specialty Start Date End Date Nic Hernández MD [address] [place] [address] PCP - General Family Medicine 11/21/15 11/24/17 Andrew Pitts MD [address] [place] [address] PCP - General Family Medicine 11/25/17 10/19/20 Emmanuel Ricketts MD [address] [place] [address] PCP - General Family Medicine 10/20/20 Chef Instructor Relationship Specialty Start Date End Date Emmanuel Ricketts MD [address] [place] [address] PCP - General Family Medicine 10/20/20 Chef Instructor Relationship Specialty Start Date End Date Emmanuel Ricketts MD [address] [place] [address] PCP - General Family Medicine 10/20/20 Chef Instructor Relationship Specialty Start Date End Date Emmanuel Ricketts MD [address] [place] [address] PCP - General Family Medicine 10/20/20 Chef Instructor Relationship Specialty Start Date End Date Emmanuel Ricketts MD [address] [place] [address] PCP - General Family Medicine 10/20/20 Chef Instructor Relationship Specialty Start Date End Date Emmanuel Ricketts MD [address] [place] [address] PCP - General Family Medicine 10/20/20 Chef Instructor Relationship Specialty Start Date End Date Emmanuel Ricketts MD MPH [address] [facility] [place] [address] PCP - General 04/04/20 Emmanuel Ricketts MD MPH [address] [facility], [email or web address] [address] [place] [address] PCP - [employer] PCP 08/21/22 Chef Instructor Relationship Specialty Start Date End Date Emmanuel Ricketts MD [address] [place] [address] PCP - General Family Medicine 10/20/20 Chef Instructor Relationship Specialty Start Date End Date Emmanuel Ricketts MD [address] [place] [address] PCP - General Family Medicine 10/20/20 Chef Instructor Relationship Specialty Start Date End Date Emmanuel Ricketts MD [address] [place] [address] PCP - General Family Medicine 10/20/20 Chef Instructor Relationship Specialty Start Date End Date Emmanuel Ricketts MD [address] [place] [address] PCP - General Family Medicine 10/20/20 Chef Instructor Relationship Specialty Start Date End Date Emmanuel Ricketts MD [address] [place] [address] PCP - General Family Medicine 10/20/20 Chef Instructor Relationship Specialty Start Date End Date Emmanuel Ricketts MD [address] [place] [address] PCP - General Family Medicine 10/20/20 Chef Instructor Relationship Specialty Start Date End Date Emmanuel Ricketts MD MPH [address] [facility] [place] [address] PCP - General 04/04/20 Emmanuel Ricketts MD MPH [address] [facility] [place] [address] PCP - [place] [employer]age PCP 08/21/22 Chef Instructor Relationship Specialty Start Date End Date Emmanuel Ricketts MD [address] [place] [address] PCP - General Family Medicine 10/20/20 Chef Instructor Relationship Specialty Start Date End Date Emmanuel Ricketts [facility] [address] [facility], [address] [place] [address] PCP - General Family Medicine 03/19/23 Chef Instructor Relationship Specialty Start Date End Date Emmanuel Ricketts MD MPH [address] [facility], [address] [place] [address] PCP - General 04/04/20 Emmanuel Ricketts MD MPH [address] [facility], [address] [place] [address] PCP - [place] Medicare Advantage PCP 08/21/22 Chef Instructor Relationship Specialty Start Date End Date Emmanuel Ricketts MD MPH [address] [facility], [address] [place] [address] PCP - General 04/04/20 Emmanuel Ricketts MD MPH [address] [facility], [address] [place] [address] PCP - [place] Medicare Advantage PCP 08/21/22 Chef Instructor Relationship Specialty Start Date End Date Emmanuel Ricketts MD MPH [address] [facility], [address] [place] [address] PCP - General 04/04/20 Emmanuel Ricketts MD MPH [address] [facility], [address] [place] [address] PCP - [place] A Medicare Advantage PCP 08/21/22 Chef Instructor Relationship Specialty Start Date End Date Emmanuel Ricketts MD MPH [address] [facility], [address] [place] [address] PCP - General 04/04/20 Emmanuel Ricketts MD MPH [address] [facility], [address] [place] [address] PCP - [place] A Medicare Advantage PCP 08/21/22 Chef Instructor Relationship Specialty Start Date End Date Emmanuel Ricketts MD MPH [address] [facility], [email or web address] [address] [place] [address] PCP - General 04/04/20 Emmanuel Ricketts MD MPH [address] [facility], [email or web address] [address] [place] [address] PCP - [place] Medicare Advantage PCP 08/21/22 Chef Instructor Relationship Specialty Start Date End Date Emmanuel Ricketts MD [address] [place] [id number] PCP - General Family Medicine 10/20/20 Chef Instructor Relationship Specialty Start Date End Date Emmanuel Ricketts MD [address] [place], [place] [id number] PCP - General Family Medicine 10/20/20 Chef Instructor Relationship Specialty Start Date End Date Emmanuel Ricketts MD [address] [place] [id number] PCP - General Family Medicine 10/20/20 Chef Instructor Relationship Specialty Start Date End Date Emmanuel Ricketts MD [address] [place] [id number] PCP - General Family Medicine 10/20/20 Chef Instructor Relationship Specialty Start Date End Date Emmanuel Ricketts MD [address] [place] [id number] PCP - General Family Medicine 10/20/20 Chef Instructor Relationship Specialty Start Date End Date Emmanuel Ricketts MD [address] [place] [id number] PCP - General Family Medicine 10/20/20 Chef Instructor Relationship Specialty Start Date End Date Emmanuel Ricketts MD [address] [place] [address] PCP - General Family Medicine 10/20/20 Chef Instructor Relationship Specialty Start Date End Date Emmanuel Ricketts MD [address] [place] [address] PCP - General Family Medicine 10/20/20 Chef Instructor Relationship Specialty Start Date End Date Emmanuel Ricketts MD [address] [place] [address] PCP - General Family Medicine 10/20/20 Chef Instructor Relationship Specialty Start Date End Date Emmanuel Ricketts MD [address] [place] [address] PCP - General Family Medicine 10/20/20 Chef Instructor Relationship Specialty Start Date End Date Kyler Wetzel PA-C [address] [facility] [address] [place] [address] PCP - General Family Medicine 03/08/24 Chef Instructor Relationship Specialty Start Date End Date Kyler Wetzel PA-C [address] [facility] [address] [place] [address] PCP - General Family Medicine 03/08/24 Chef Instructor Relationship Specialty Start Date End Date Kyler Wetzel PA-C [address] [facility] [address] [place] [address] PCP - General Family Medicine 03/08/24 Chef Instructor Relationship Specialty Start Date End Date Nic Hernández MD [address] [address] as of 04/20/2021 [place] [address] PCP - [employer] Medicare Advantage PCP 02/19/24 Kyler Wetzel PA-C [address] [facility] [address] [place] [id number] PCP - General Family Medicine 05/03/24 Chef Instructor Relationship Specialty Start Date End Date Kyler Wetzel PA-C [facility] [address] [place] [address] PCP - General Family Medicine 03/08/24 Name Effective Dates (start - stop) Status Members No Information Chef Instructor Relationship Specialty Start Date End Date Kyler Wetzel PA-C [address] [facility] [address] [place] [address] PCP - General Family Medicine 03/08/24 Scheduled Active and Recently Administ ered Medications (unrecognized section and content) Medication Order 04/03/2023 04/04/2023 04/05/2023 acetaminophen (TYLENOL) tablet 1,000 mg (CANCELED) 1,000 mg, oral, 3 times daily, First dose on Fri04/03/23 at 2100 2109 (Given - Provider: May Gilliam RN) acetaminophen (TYLENOL) tablet 1,000 mg 1,000 mg, oral, 3 times daily, First dose on Fri04/04/23 at 0900 0903 (Given - Provider: Lena Ruiz RN)1336 (Given - Provider: Lena Ruiz RN)2152 (Given - Provider: Cooper Robertson RN) 0855 (Given - Provider: Dinora Yao, WILLIE)1308 (Given - Provider: Dinora Yao, WILLIE) atenoloL (TENORMIN) tablet 25 mg 25 mg, oral, Daily, First dose on Fri04/04/23 at 0900, For systolic blood pressure less than 100. Hold for heart rate less than 50 0905 (Given - Provider: Lena Ruiz RN) 0855 (Given - Provider: Dinora Yao RN) ceFAZolin (ANCEF) 2 gram/20 mL IV syringe 2 g (COMPLETED) 2 g, intravenous, Administer over 3 Minutes, Once, On Kaley 04/03/23 at 0830, For 1 dose, Preprocedure, Administer within 60 minutes of incision For pt under 120 KG, Indication: Prophylaxis-Surgical 0945 (Given - Provider: MERCED Fowler) ceFAZolin (ANCEF) 2 gram/20 mL IV syringe 2 g (COMPLETED) 2 g, intravenous, Administer over 3 Minutes, Every 8 hours, First dose on Kaley 04/03/23 at 1700, For 6 doses, Recovery & On Unit, Indication: Prophylaxis-Surgical 1637 (Given - Provider: Lexy Soares RN) 0002 (Given - Provider: May Gilliam RN)0904 (Given - Provider: Lena Ruiz RN)1601 (Given - Provider: Lena Ruiz RN) 0147 (Given - Provider: Cooper Robertson, WILLIE)0855 (Given - Provider: Dinora Yao, WILLIE) docusate sodium (COLACE) capsule 100 mg 100 mg, oral, 2 times daily, First dose on Kaley 04/03/23 at 2100 2109 (Given - Provider: May Gilliam RN) 0904 (Given - Provider: Lena Ruiz, WILLIE)2152 (Given - Provider: Cooper Robertson, WILLIE) 0855 (Given - Provider: Dinora Yao RN) gentamicin (GARAMYCIN) 270 mg in sodium chloride 0.9 % 100 mL IVPB (COMPLETED) 270 mg (rounded from 274.5 mg = 5 mg/kg 54.9 kg Adjusted weight), intravenous, at 100 mL/hr, Administer over 60 Minutes, Once, On Kaley 04/03/23 at 0830, For 1 dose, Preprocedure, Max dose of 500 mg Administer within 60 minutes of incision or given in or, Indication: Prophylaxis-Surgical 0941 (New Bag - Provider: MERCED Fowler) lactated Ringer's infusion (COMPLETED) 20 mL/hr, intravenous, Once, On Kaley 04/03/23 at 0830, For 1 dose, Preprocedure 0832 (New Bag - Provider: Deann Méndez, WILLIE) levothyroxine (SYNTHROID, LEVOTHROID) tablet 100 mcg 100 mcg, oral, Every morning before breakfast, First dose on Fri04/04/23 at 0700, ORAL ROUTE: take on an empty stomach and separate from other medications. ENTERAL TUBE ROUTE: If newly initiated enteral nutrition duration is over 5 days, hold enteral nutrition 1 hour before and after drug administration, per ASPEN guidelines. 0533 (Given - Provider: May Gilliam RN) 0606 (Given - Provider: Cooper Robertson RN) midazolam (VERSED) injection 1 mg (COMPLETED) 1 mg, intravenous, Once, On Kaley 04/03/23 at 1430, For 1 dose, Recovery (only) 1405 (Given - Provider: Archana Bauer RN) mupirocin (BACTROBAN) 2 % ointment (COMPLETED) Each Nostril, Once, On Kaley 04/03/23 at 0830, For 1 dose, Preprocedure, Apply to each nostril for Nasal Decolonization. 0837 (Given - Provider: Deann Méndez, WILLIE) polyethylene glycol (MIRALAX) packet 17 g 17 g, oral, Daily, First dose on Kaley 04/03/23 at 2000, Please begin day of surgery. May hold for large bowel movement. Notify GEN med provider patient refuses 210 (Given - Provider: May Gilliam RN - Comment: priority of care) 0904 (Given - Provider: Lena Ruiz RN) 0855 (Given - Provider: Dinora Yao, WILLIE) potassium chloride (KLOR-CON M20) CR tablet 20 mEq (COMPLETED) 20 mEq, oral, Once, On Fri04/05/23 at 1300, For 1 dose, Tablet may be swallowed whole (do not crush/chew/suck on) OR broken in half and each half swallowed separately OR dissolved (whole tablet) in ~4 ounces of water (allow ~2 minutes to dissolve, stir well and administer immediately). 1308 (Given - Provider: Dinora Yao RN) potassium chloride (KLOR-CON M20) CR tablet 40 mEq (COMPLETED) 40 mEq, oral, Once, On 04/05/23 at 1100, For 1 dose, Tablet may be swallowed whole (do not crush/chew/suck on) OR broken in half and each half swallowed separately OR dissolved (whole tablet) in ~4 ounces of water (allow ~2 minutes to dissolve, stir well and administer immediately). 1123 (Given - Provider: Dinora Yao, WILLIE) senna (SENOKOT) tablet 17.2 mg 17.2 mg (2 tablet), oral, 2 times daily, First dose on Kaley 04/03/23 at 2100 2110 (Given - Provider: May Gilliam, WILLIE) 0900 (Given - Provider: Lena Ruiz, RN)2152 (Given - Provider: Cooper Robertson, RN) 0855 (Given - Provider: Dinora Yao, WILLIE) traZODone (DESYREL) tablet 50 mg 50 mg, oral, Nightly, First dose on Kaley 04/03/23 at 2100 2109 (Given - Provider: May Gilliam RN) 215 (Given - Provider: Cooper Robertson, RN) triamterene-hydroCHLORO thiazide (DYAZIDE) 37.5-25 mg per capsule 1 capsule 1 capsule, oral, Daily, First dose on [facility] 04/05/23 at 0900, Stop day 2. Hold for systolic blood pressure less than 110 0855 (Given - Provider: Dinora Yao RN) Continuous Medication Order 04/03/2023 04/04/2023 04/05/2023 lactated Ringer's infusion (CANCELED) 100 mL/hr, intravenous, Continuous, Starting on Kaley 04/03/23 at 1545 1554 (Restarted - Provider: Lexy Soares, WILLIE) sodium chloride 0.9 % infusion 100 mL/hr, intravenous, Continuous, Starting on Kaley 04/03/23 at 1830 1900 (New Bag - Provider: Lexy Soares, WILLIE) 0534 (New Bag - Provider: May Gilliam RN)1548 (New Bag - Provider: Lena Ruiz, WILLIE) PRN Medication Order 04/03/2023 04/04/2023 04/05/2023 acetaminophen (TYLENOL) tablet 325 mg 325 mg, oral, Every 6 hours PRN, mild pain, headaches, fever, Starting on Kaley 04/03/23 at 1519 aluminum-magnesium hydroxide-simethicone (MAALOX) 200-200-20 mg/5 mL suspension 30 mL 30 mL, oral, 4 times daily PRN, indigestion, heartburn, Starting on Kaley 04/03/23 at 1519 bethanechol (URECHOLINE) tablet 25 mg 25 mg, oral, 3 times daily PRN, As needed for urinary retention or PVR greater than 400 cc, Starting on Kaley 04/03/23 at 1519 bisacodyL (DULCOLAX) suppository 10 mg 10 mg, rectal, Daily PRN, constipation, If magnesium hydroxide ineffective, Starting on Kaley 04/03/23 at 1519 bupivacaine-EPINEPHrine PF (MARCAINE w/EPI) 0.25 %-1:200,000 injection (CANCELED) As needed, Starting on Kaley 04/03/23 at 1012, Intraprocedure 1012 (Given - Provider: Rolando Hanna DO) cloNIDine (CATAPRES) tablet 0.1 mg 0.1 mg, oral, Every 8 hours PRN, high blood pressure, for SBP more than 170 or DBP more than 105, Starting on Kaley 04/03/23 at 1519 cyclobenzaprine (FLEXERIL) tablet 5 mg 5 mg, oral, 3 times daily PRN, muscle spasms, Starting on Kaley 04/03/23 at 1519 0038 (Given - Provider: May Gilliam RN)1601 (Given - Provider: Lena Ruiz RN) 0606 (Given - Provider: Cooper Robertson RN) fentaNYL (SUBLIMAZE) injection 50 mcg (COMPLETED) 50 mcg, intravenous, Every 5 min PRN, severe pain, Starting on Kaley 04/03/23 at 1246, For 3 doses, Recovery (only) 1323 (Given - Provider: Paulina Jon RN)1330 (Given - Provider: Paulina Jon RN)1335 (Given - Provider: Archana Bauer RN) HYDROcodone-acetaminophe n (NORCO) 5-325 mg per tablet 1 tablet (CANCELED) 1 tablet, oral, Every 2 hours PRN, moderate pain, Starting on Kaley 04/03/23 at 1246, For 2 doses, Recovery (only) 1447 (Given - Provider: Archana Bauer RN - Comment: Pt requested to take pill for pain) HYDROmorphone (DILAUDID) injection 0.5 mg (CANCELED) 0.5 mg, intravenous, Every 5 min PRN, severe pain, Starting on Kaley 04/03/23 at 1344, Recovery (only) 1344 (Given - Provider: Archana Bauer RN)1351 (Given - Provider: Archana Bauer RN)1357 (Pump Refill - Provider: Archana Bauer RN) HYDROmorphone (DILAUDID) injection 0.5 mg 0.5 mg, intravenous, Every 2 hours PRN, severe pain, For severe breakthrough pain not relieved with oral pain medication, Starting on Kaley 04/03/23 at 1519 1637 (Given - Provider: Lexy Soares RN)2109 (Given - Provider: May Gilliam RN) 0356 (Given - Provider: May Gilliam RN)0608 (Given - Provider: May Gilliam RN) magnesium hydroxide (MILK OF MAGNESIA) 400 mg/5 mL suspension 30 mL 30 mL, oral, 2 times daily PRN, constipation, Starting on Kaley 04/03/23 at 1519, Follow dose with 8 oz of water. nalbuphine (NUBAIN) 10 mg/mL injection 2.5 mg 2.5 mg, intravenous, Every 4 hours PRN, itching, Starting on Kaley 04/03/23 at 1519 naloxone (NARCAN) injection 0.4 mg 0.4 mg, intravenous, Once as needed, opioid reversal, respiratory depression, Starting on Kaley 04/03/23 at 1519, For 1 dose ondansetron (PF) (ZOFRAN) injection 4 mg 4 mg, intravenous, Every 6 hours PRN, nausea, vomiting, Starting on Kaley 04/03/23 at 1519 oxyCODONE (ROXICODONE) immediate release tablet 10 mg(Linked Group 1) 10 mg, oral, Every 4 hours PRN, severe pain, Starting on Fri04/04/23 at 0834 0904 (See Alternative - Provider: Lena Ruiz RN)1230 (Not Given - Provider: Lena Ruiz RN - Reason: Other - Comment: Patient first dose. Dr wanted to start slow and RN already pulled med. Returned with another RN)1337 (See Alternative - Provider: Lena Ruiz RN)194 (Given - Provider: Lena Ruiz RN)2111 (See Alternative - Provider: Cooper Robertson RN) 0149 (See Alternative - Provider: Cooper Robertson RN)0606 (See Alternative - Provider: Cooper Robertson RN)1019 (See Alternative - Provider: Dinora Yao RN)1414 (Given - Provider: Dinora Yao RN) oxyCODONE (ROXICODONE) immediate release tablet 5 mg(Linked Group 1) 5 mg, oral, Every 4 hours PRN, moderate pain, Starting on Fri04/04/23 at 0834 0904 (Given - Provider: Lena Ruiz RN)1230 (See Alternative - Provider: Lena Ruiz RN)1337 (Given - Provider: Lena Ruiz RN)194 (See Alternative - Provider: Lena Ruiz RN)2111 (Not Given - Provider: Cooper Robertson RN - Reason: Other - Comment: Dayshift nurse pulled one for pt as well, this one was returned and witnessed) 0149 (Given - Provider: Cooper Robertson RN)0606 (Given - Provider: Cooper Robertson RN)1019 (Given - Provider: Dinora Yao RN - Comment: pt requests one pill)1414 (See Alternative - Provider: Dinora Yao RN) Oxygen Therapy, Adult inhalation, at 2 mL/hr, As needed, Titrate 1-4 lpm to maintain O2 sats above 90%. If Flow is increased above 4 Lpm, Please contact General Tankroom Tender physcian., Starting on Fri04/03/23 at 1519, Titrate 1-4 lpm to maintain O2 sats above 90%. If Flow is increased above 4 Lpm, Please contact General Tankroom Tender physcian., Device: Nasal Cannula, Rate in liters per minute: 2 lpm, Titrate Oxygen to keep O2 Sat. at or above: 90% povidone-iodine (BETADINE) 10 % topical solution (CANCELED) As needed, Starting on Fri04/03/23 at 1012, Intraprocedure 1012 (Given - Provider: Rolando Hanna DO - Comment: Mixed with 2000ml Nacl.) promethazine (PHENERGAN) suppository 12.5 mg 12.5 mg, rectal, Every 6 hours PRN, nausea, vomiting, Starting on Kaley 04/03/23 at 1519, For use if unable to tolerate p.o. Phenergan and IV Zofran ineffective promethazine (PHENERGAN) tablet 12.5 mg 12.5 mg, oral, Every 6 hours PRN, nausea, vomiting, Starting on Kaley 04/03/23 at 1519, For use if IV Zofran ineffective or no IV access sodium chloride 0.9 % irrigation solution (CANCELED) As needed, Starting on Kaley 04/03/23 at 1012, Intraprocedure 1012 (Given - Provider: Rolando Hanna DO) thrombin (bovine) (THROMBIN-JMI) topical spray syringe (CANCELED) As needed, Starting on Kaley 04/03/23 at 1013, Intraprocedure 1013 (Given - Provider: Rolando Hanna DO) traMADoL (ULTRAM) tablet 100 mg (CANCELED) 100 mg, oral, Every 6 hours PRN, severe pain, Starting on Kaley 04/03/23 at 1519 1859 (Given - Provider: Lexy Soares RN) 0107 (Given - Provider: May Gilliam RN) tranexamic acid (CYKLOKAPRON) injection (CANCELED) As needed, Starting on Kaley 04/03/23 at 1013, Intraprocedure 1013 (Given - Provider: Rolando Hanna DO) vancomycin (VANCOCIN) vial for injection (CANCELED) As needed, Starting on Kaley 04/03/23 at 1013, Intraprocedure 1013 (Given - Provider: Rolando Hanna DO) Linked Groups Order Group 1: oxyCODONE (ROXICODONE) immediate release tablet 5 mgJump to med 5 mg, oral, Every 4 hours PRN, moderate pain, Starting on Fri04/04/23 at 0834 Or oxyCODONE (ROXICODONE) immediate release tablet 10 mgJump to med 10 mg, oral, Every 4 hours PRN, severe pain, Starting on Fri04/04/23 at 0834 Scheduled Medication Order 04/19/2023 04/20/2023 04/21/2023 apixaban (Eliquis) tablet 10 mg 10 mg, oral, Every 12 hours, First dose on 04/19/23 at 1100, For 4 days, Stop heparin drip upon first apixaban 1112 (Given - Provider: Virgen Peralta RN)2300 (Given - Provider: Tanesha Rios RN) 1124 (Given - Provider: Virgen Peralta RN)2248 (Given - Provider: Tanesha Rios RN) 1355 (Given - Provider: Lenora Hernandez RN - Comment: patient request) apixaban (Eliquis) tablet 5 mg 5 mg, oral, Every 12 hours, First dose on Fri04/23/23 at 1100 atenolol (Tenormin) tablet 25 mg 25 mg, oral, Daily, First dose on 04/19/23 at 0600 0825 (Not Given - Provider: Virgen Peralta RN - Reason: Other - Comment: pt unsure if she took medication during system downtime) 0535 (Given - Provider: Tanesha Rios RN) 0627 (Given - Provider: Tanesha Rios RN) gabapentin (Neurontin) capsule 300 mg 300 mg, oral, 2 times daily, First dose on 04/19/23 at 0900, Capsules may be opened and sprinkled on food (eg, applesauce, orange juice, pudding 0825 (Given - Provider: Virgen ePralta RN)2100 (Given During Downtime - Provider: Tanesha Rios RN) 0851 (Given - Provider: Virgen Peralta RN)2041 (Given - Provider: Tanesha Rios RN) 0831 (Given - Provider: Lenora Hernandez RN)2100 (Canceled Entry - Provider: Automatic Discharge Provider - Comment: Automatically canceled at discontinue of medication order) levothyroxine (Synthroid, Levoxyl) tablet 112 mcg 112 mcg, oral, Daily (0630), First dose on 04/19/23 at 0630 0527 (Given During Downtime - Provider: Michelle Chauhan RN) 0535 (Given - Provider: Tanesha Rios RN) 0627 (Given - Provider: Tanesha Rios RN) LORazepam (Ativan) tablet 0.5 mg 0.5 mg, oral, Nightly, First dose on 04/19/23 at 2100 2100 (Not Given - Provider: Tanesha Rios RN - Reason: Patient/family refused) 2100 (Not Given - Provider: Tanesha Rios RN - Reason: Patient/family refused) 2100 (Canceled Entry - Provider: Automatic Discharge Provider - Comment: Automatically canceled at discontinue of medication order) magnesium oxide (Mag-Ox) tablet 400 mg 400 mg, oral, Daily, First dose on 04/19/23 at 0900 0825 (Given - Provider: Virgen Peralta RN) 0851 (Given - Provider: Virgen Peralta RN) 0831 (Given - Provider: Lenora Hernandez RN) oxygen (O2) therapy inhalation, Continuous - , First dose on 04/19/23 at 0500, Device: Nasal Cannula, Rate in liters per minute: 2 LPM, Keep O2 Sat Above: 92% 0500 (Canceled Entry - Provider: Automatic Discharge Provider - Comment: Automatically canceled at discontinue of medication order)0800 (Start - Provider: Virgen Peralta RN)0801 (Stopped - Provider: Virgen Peralta RN - Comment: Room Air) 0700 (Start - Provider: Rosie Mujica, PEANUT VENDOR - Comment: 2L) 0706 (Start - Provider: Lima Cano, OSMANI) traZODone (Desyrel) tablet 50 mg 50 mg, oral, Nightly, First dose on 04/19/23 at 2100 2099 (Given - Provider: Tanesha Rios RN) 2199 (Not Given - Provider: Tanesha Rios RN - Reason: Other - Comment: pt request)2247 (Given - Provider: Tanesha Rios RN) 2099 (Canceled Entry - Provider: Automatic Discharge Provider - Comment: Automatically canceled at discontinue of medication order) PRN Medication Order 04/19/2023 04/20/2023 04/21/2023 acetaminophen (Tylenol) tablet 650 mg 650 mg, oral, Every 4 hours PRN, pain mild (1-3), first line, fever (temp greater than 38.0 C), Starting on 04/19/23 at 0000, If ordered PRN for pain, nurse is permitted to administer this medication for higher pain scores based on patient preference? Yes 0825 (Given - Provider: Virgen Peralta RN)1417 (Given - Provider: Virgen Peralta RN)2046 (Given During Downtime - Provider: Tanesha Rios RN) 1355 (Given - Provider: Lenora Hernandez, WILLIE) magnesium hydroxide (Milk of Magnesia) 2,400 mg/10 mL suspension 10 mL 10 mL, oral, Every 24 hours PRN, constipation, first line, Starting on 04/19/23 at 0000, Concentrated product. Follow administration with 8 ounces of water. morphine injection 2 mg 2 mg, intravenous, Every 4 hours PRN, pain severe (7-10), first line, Starting on 04/19/23 at 0000 0530 (Given During Downtime - Provider: Michelle Chauhan RN)1921 (Given - Provider: Tanesha Rios RN) 0108 (Given - Provider: Tanesha Rios RN)0534 (Given - Provider: Tanesha Rios RN)1143 (Given - Provider: Virgen Peralta RN)1703 (Given - Provider: Virgen Peralta RN)2109 (Given - Provider: Tanesha Rios RN) 0403 (Given - Provider: Tanesha Rios RN)0831 (Given - Provider: Lenora Hernandez, WILLIE) ondansetron (Zofran) injection 4 mg 4 mg, intravenous, Every 4 hours PRN, nausea/vomiting, first line, Starting on 04/19/23 at 0000, When administering via IV Push, administer over 3-5 minutes. tiZANidine (Zanaflex) tablet 2 mg 2 mg, oral, Every 8 hours PRN, muscle spasms, Starting on 04/19/23 at 0000 2247 (Given - Provider: Tanesha Rios RN) traMADol (Ultram) tablet 50 mg 50 mg, oral, Every 6 hours PRN, pain moderate (4-6), first line, Starting on 04/19/23 at 0000, Max of 300 mg daily for patients > 75 years of age., If ordered PRN for pain, nurse is permitted to administer this medication for higher pain scores based on patient preference? Yes 1755 (Given - Provider: Virgen Peralta RN) 1653 (Given - Provider: Lenora Hernandez, WILLIE) Scheduled Medication Order 04/19/2023 04/20/2023 04/21/2023 apixaban (Eliquis) tablet 10 mg 10 mg, oral, Every 12 hours, First dose on 04/19/23 at 1100, For 4 days, Stop heparin drip upon first apixaban 1112 (Given - Provider: Virgen Peralta RN)2300 (Given - Provider: Tanesha Rios RN) 1124 (Given - Provider: Virgen Peralta RN)2248 (Given - Provider: Tanesha Rios RN) 1355 (Given - Provider: Lenora Hernandez RN - Comment: patient request) apixaban (Eliquis) tablet 5 mg 5 mg, oral, Every 12 hours, First dose on Fri04/23/23 at 1100 atenolol (Tenormin) tablet 25 mg 25 mg, oral, Daily, First dose on 04/19/23 at 0600 0825 (Not Given - Provider: Virgen Peralta RN - Reason: Other - Comment: pt unsure if she took medication during system downtime) 0535 (Given - Provider: Tanesha Rios RN) 0627 (Given - Provider: Tanesha Rios RN) gabapentin (Neurontin) capsule 300 mg 300 mg, oral, 2 times daily, First dose on 04/19/23 at 0900, Capsules may be opened and sprinkled on food (eg, applesauce, orange juice, pudding 0825 (Given - Provider: Virgen Peralta RN)2100 (Given During Downtime - Provider: Tanesha Rios RN) 0851 (Given - Provider: Virgen Peralta RN)2041 (Given - Provider: Tanesha Rios RN) 0831 (Given - Provider: Lenora Hernandez, WILLIE)2100 (Canceled Entry - Provider: Automatic Discharge Provider - Comment: Automatically canceled at discontinue of medication order) levothyroxine (Synthroid, Levoxyl) tablet 112 mcg 112 mcg, oral, Daily (629), First dose on 04/19/23 at 0630 0527 (Given During Downtime - Provider: Michelle Chauhan RN) 0535 (Given - Provider: Tanesha Rios RN) 0627 (Given - Provider: Tanesha Rios RN) LORazepam (Ativan) tablet 0.5 mg 0.5 mg, oral, Nightly, First dose on 04/19/23 at 2100 2100 (Not Given - Provider: Tanesha Rios RN - Reason: Patient/family refused) 2100 (Not Given - Provider: Tanesha Rios RN - Reason: Patient/family refused) 2100 (Canceled Entry - Provider: Automatic Discharge Provider - Comment: Automatically canceled at discontinue of medication order) magnesium oxide (Mag-Ox) tablet 400 mg 400 mg, oral, Daily, First dose on 04/19/23 at 0900 0825 (Given - Provider: Virgen Peralta RN) 0851 (Given - Provider: Virgen Peralta RN) 0831 (Given - Provider: Lenora Hernandez RN) oxygen (O2) therapy inhalation, Continuous - , First dose on 04/19/23 at 0500, Device: Nasal Cannula, Rate in liters per minute: 2 LPM, Keep O2 Sat Above: 92% 0500 (Canceled Entry - Provider: Automatic Discharge Provider - Comment: Automatically canceled at discontinue of medication order)0800 (Start - Provider: Virgen Peralta RN)0801 (Stopped - Provider: Virgen Peralta RN - Comment: Room Air) 0700 (Start - Provider: Rosie Mujica RRT - Comment: 2L) 0706 (Start - Provider: Lima Cano RRT) traZODone (Desyrel) tablet 50 mg 50 mg, oral, Nightly, First dose on 04/19/23 at 2100 2100 (Given - Provider: Tanesha Rios RN) 2200 (Not Given - Provider: Tanesha Rios RN - Reason: Other - Comment: pt request)2248 (Given - Provider: aTnesha Rios RN) 2100 (Canceled Entry - Provider: Automatic Discharge Provider - Comment: Automatically canceled at discontinue of medication order) PRN Medication Order 04/19/2023 04/20/2023 04/21/2023 acetaminophen (Tylenol) tablet 650 mg 650 mg, oral, Every 4 hours PRN, pain mild (1-3), first line, fever (temp greater than 38.0 C), Starting on 04/19/23 at 0000, If ordered PRN for pain, nurse is permitted to administer this medication for higher pain scores based on patient preference? Yes 0825 (Given - Provider: Virgen Peralta RN)1417 (Given - Provider: Virgen Peralta RN)2046 (Given During Downtime - Provider: Tanesha Rios RN) 1355 (Given - Provider: Lenora Hernandze, WILLIE) magnesium hydroxide (Milk of Magnesia) 2,400 mg/10 mL suspension 10 mL 10 mL, oral, Every 24 hours PRN, constipation, first line, Starting on 04/19/23 at 0000, Concentrated product. Follow administration with 8 ounces of water. morphine injection 2 mg 2 mg, intravenous, Every 4 hours PRN, pain severe (7-10), first line, Starting on 04/19/23 at 0000 0530 (Given During Downtime - Provider: Michelle Chauhan RN)1921 (Given - Provider: Tanesha Rios RN) 0108 (Given - Provider: Tanesha Rios RN)0534 (Given - Provider: Tanesha Rios RN)1143 (Given - Provider: Virgen Peralta RN)1703 (Given - Provider: Virgen Peralta RN)2109 (Given - Provider: Tanesha Rios RN) 0403 (Given - Provider: Tanesha Rios RN)0831 (Given - Provider: Lenora Hernandez RN) ondansetron (Zofran) injection 4 mg 4 mg, intravenous, Every 4 hours PRN, nausea/vomiting, first line, Starting on 04/19/23 at 0000, When administering via IV Push, administer over 3-5 minutes. tiZANidine (Zanaflex) tablet 2 mg 2 mg, oral, Every 8 hours PRN, muscle spasms, Starting on 04/19/23 at 0000 2247 (Given - Provider: Tanesha Rios RN) traMADol (Ultram) tablet 50 mg 50 mg, oral, Every 6 hours PRN, pain moderate (4-6), first line, Starting on 04/19/23 at 0000, Max of 300 mg daily for patients > 75 years of age., If ordered PRN for pain, nurse is permitted to administer this medication for higher pain scores based on patient preference? Yes 1755 (Given - Provider: Virgen Peralta, RN) 1653 (Given - Provider: Lenora Hernandez, RN) Scheduled Medication Order 11/27/2023 11/28/2023 11/29/2023 aspirin EC tablet 325 mg 325 mg, Oral, 2 times daily, First dose on Fri11/26/23 at 1700, DO NOT CRUSH OR CHEW. 0821 (Given - Provider: Whitney Gómez RN)1601 (Given - Provider: Lily Moreno RN) 0717 (Given - Provider: Adalid York, WILLIE)1744 (Given - Provider: Fox Lance, WILLIE) 0819 (Given - Provider: Erwin Weldon, WILLIE)1700 (Due) ceFAZolin (ANCEF) IVPB 2 g (premix) (COMPLETED) 2,000 mg, Intravenous, at 100 mL/hr, Every 8 hours, First dose on Fri11/26/23 at 1400, For 3 doses, Starting in pacu, Indication (POST PROCEDURE): Ortho 0611 (New Bag - Provider: Francoise Mcclain, WILLIE)0650 (Stopped - Provider: Francoise Mcclain, WILLIE) cholecalciferol (vitamin D3) tablet 800 Units 800 Units, Oral, Daily, First dose on Fri11/27/23 at 0900 0821 (Given - Provider: Whitney Gómez RN) 0810 (Given - Provider: Adalid York, WILLIE) 0819 (Given - Provider: Erwin Weldon, WILLIE) electrolyte-A (PLASMALYTE-A) solution 1,000 mL (COMPLETED) 1,000 mL, Intravenous, at 983.6 mL/hr, Once, On Fri11/27/23 at 1300, For 1 dose 1219 (New Bag - Provider: Whitney Gómez RN) electrolyte-A (PLASMALYTE-A) solution 500 mL (COMPLETED) 500 mL, Intravenous, at 491.8 mL/hr, Once, On Fri11/28/23 at 1215, For 1 dose 1147 (New Bag - Provider: Mary Becker RN) gabapentin (NEURONTIN) capsule 300 mg 300 mg, Oral, Every 12 hours, First dose on Fri11/25/23 at 1800, Capsule may be opened and contents placed down tube, flush tube with 10ml saline 0609 (Given - Provider: Francoise Mcclain RN)1826 (Given - Provider: Lily Moreno RN) 0524 (Given - Provider: Adalid York, WILLIE)1744 (Given - Provider: Fox Lance RN) 0520 (Given - Provider: Jacki Moffett, WILLIE) levothyroxine (SYNTHROID, LEVOTHROID) tablet 112 mcg 112 mcg, Oral, Daily, First dose on Fri11/26/23 at 0600, For patients on continuous tube feed: Hold TF from 1 hr before until 1 hr after each dose. TF rate may need adjustment to meet caloric needs. 0609 (Given - Provider: Francoise Mcclain RN) 0524 (Given - Provider: Adalid York RN) 0520 (Given - Provider: Jacki Moffett, WILLIE) losartan (COZAAR) tablet 25 mg 25 mg, Oral, Nightly, First dose on Fri11/28/23 at 2100 2126 (Given - Provider: Jacki Moffett, WILLIE) pantoprazole (PROTONIX) EC tablet 20 mg 20 mg, Oral, Daily, First dose on Fri11/26/23 at 1530, DO NOT CRUSH OR CHEW. 08 (Given - Provider: Whitney Gómez RN) 08 (Given - Provider: Adalid York RN) 0819 (Given - Provider: Erwin Weldon RN) senna-docusate (SENNA-S) 8.6-50 mg per tablet 1 tablet 1 tablet, Oral, 2 times daily, First dose on Fri11/25/23 at 2100, NOT for abdominal surgery patients. Hold for loose stools. Do Not Crush or Chew if administering orally due to bitter taste. May be crushed if given via tube. 0821 (Given - Provider: Whitney Gómez RN)2021 (Given - Provider: Adalid York, WILLIE) 08 (Given - Provider: Adalid York RN)2100 (Not Given - Provider: Jacki Moffett RN - Reason: Patient/family refused - Comment: patient had loose stool today. per patient.) 0819 (Given - Provider: Erwin Weldon, WILLIE) triamterene-hydrochlorot hiazide (MAXZIDE) 75-50 mg per tablet 0.5 tablet (CANCELED) 0.5 tablet, Oral, Daily, First dose on Fri11/25/23 at 1800 0821 (Given - Provider: Whitney Gómez RN) PRN Medication Order 11/27/2023 11/28/2023 11/29/2023 acetaminophen (TYLENOL) tablet 650 mg 650 mg, Oral, Every 4 hours PRN, mild pain, fever 100.4 F or greater, headaches, Starting on Fri11/25/23 at 1656, [] If ketorolac (TORADOL) is ordered and active, use it first for mild pain. 1200 (Given - Provider: Lily Moreno RN) cyclobenzaprine (FLEXERIL) tablet 10 mg 10 mg, Oral, 3 times daily PRN, muscle spasms, Starting on Fri11/26/23 at 1437 HYDROcodone-acetaminophe n (NORCO) 5-325 mg per tablet 1-2 tablet 1-2 tablet, Oral, Every 4 hours PRN, moderate to severe pain, Starting on Fri11/26/23 at 1437, For patient reported pain 4/10 or less, give 1 tablet; 5 and above/10, give 2 tablets 0327 (Given - Provider: Francoise Mcclain RN)0750 (Given - Provider: Francoise Mcclain RN)1601 (Given - Provider: Lily Moreno RN)202 (Given - Provider: Adalid York, WILLIE) 0027 (Given - Provider: Dior Daley RN)0524 (Given - Provider: Adalid York, WILLIE)1001 (Given - Provider: Mary Becker RN)1405 (Given - Provider: Fox Lance RN)2126 (Given - Provider: Jacki Moffett, WILLIE) 0316 (Given - Provider: Jacki Moffett RN)0819 (Given - Provider: Erwin Fackler, RN)1405 (Given - Provider: Erwin Weldon RN) ketorolac (TORADOL) injection 15 mg () 15 mg, Intravenous, Every 6 hours PRN, mild pain, Starting on Fri11/26/23 at 1437, For 48 hours 0717 (Given - Provider: Adalid York RN) naloxone (NARCAN) injection 0.1 mg(Linked Group 1) 0.1 mg, Intravenous, As needed, opioid reversal, For respiratory rate less than or equal to 8 per minute., Starting on Fri11/25/23 at 1656, Mix nalOXone (NARCAN) 0.4 mg (1mL) with 9 mL of Normal Saline to total 10 mL. Administer 0.1 mg (2.5mL) IV Push every 2 minutes until respiratory rate is 10 or greater. naloxone (NARCAN) injection 0.4 mg(Linked Group 1) 0.4 mg, Intravenous, As needed, opioid reversal, patient is pulseless, breathless, and unresponsive, Starting on Fri11/25/23 at 1656, Call a code first, then administer naloxone dose undiluted IV Push over 30 seconds. ondansetron (ZOFRAN) injection 4 mg(Linked Group 2) 4 mg, Intravenous, Every 6 hours PRN, nausea, vomiting, Starting on Fri11/25/23 at 1656, [] Oral or IV - use oral route if tolerated. 1045 (Given - Provider: Mary Becker RN) ondansetron (ZOFRAN-ODT) disintegrating tablet 4 mg(Linked Group 2) 4 mg, Oral, Every 6 hours PRN, nausea, vomiting, Starting on Fri11/25/23 at 1656, [] Oral or IV - use oral route if tolerated. Formulation requires tablet remain in sealed package until immediately prior to dose being administered. 1045 (See Alternative - Provider: Mary Becker RN) perflutren lipid microspheres (DEFINITY) 0.143 mg/mL solution 0-10 mL of mixture 0-10 mL of mixture, Intravenous, Once in imaging, contrast, IF suboptimal echo, Starting on Fri11/28/23 at 1121, For 48 hours, Prepare syringe by withdrawing 1.3 mL of perflutren (DEFINITY) from the 2ml vial. Further dilute the 1.3 mL of perflutren with Sodium Chloride (NS) 0.9% to total volume of 10 ml. Chart total "ML OF MIXTURE" given to patient. traZODone (DESYREL) tablet 50 mg 50 mg, Oral, Nightly PRN, sleep, Starting on Fri11/25/23 at 2157 222 (Given - Provider: Adalid York RN) 2119 (Not Given - Provider: Jacki Moffett RN - Reason: Patient/family refused - Comment: pstient wants later tonight.)2223 (Given - Provider: Jacki Moffett RN) Linked Groups Order Group 1: naloxone (NARCAN) injection 0.1 mgJump to med 0.1 mg, Intravenous, As needed, opioid reversal, For respiratory rate less than or equal to 8 per minute., Starting on Fri11/25/23 at 1656, Mix nalOXone (NARCAN) 0.4 mg (1mL) with 9 mL of Normal Saline to total 10 mL. Administer 0.1 mg (2.5mL) IV Push every 2 minutes until respiratory rate is 10 or greater. And Notify physician (CANCELED) STAT, Until discontinued, Starting on Fri11/25/23 at 1657, Until Specified, Respiratory rate less than: 8, For respiratory rate less than or equal to 8, notify physician and/or appropriate staff for additional orders. And naloxone (NARCAN) injection 0.4 mgJump to med 0.4 mg, Intravenous, As needed, opioid reversal, patient is pulseless, breathless, and unresponsive, Starting on Fri11/25/23 at 1656, Call a code first, then administer naloxone dose undiluted IV Push over 30 seconds. Group 2: ondansetron (ZOFRAN-ODT) disintegrating tablet 4 mgJump to med 4 mg, Oral, Every 6 hours PRN, nausea, vomiting, Starting on Fri11/25/23 at 1656, [] Oral or IV - use oral route if tolerated. Formulation requires tablet remain in sealed package until immediately prior to dose being administered. Or ondansetron (ZOFRAN) injection 4 mgJump to med 4 mg, Intravenous, Every 6 hours PRN, nausea, vomiting, Starting on Fri11/25/23 at 1656, [] Oral or IV - use oral route if tolerated. FOR RECORDS PERTAINING TO PATIENTS WHO ARE OR HAVE BEEN ENROLLED IN A CHEMICAL DEPENDENCY/SUBSTANCEABUSE PROGRAM, SOME INFORMATION MAY BE OMITTED. This clinical summary was aggregated from multiple sources. Caution should be exercised in using it in the provision of clinical care. This summary normalizes information from multiple sources, and as a consequence, information in this document may materially change the coding, format and clinical context of patient data. In addition, data may be omitted in some cases. CLINICAL DECISIONS SHOULD BE BASED ON THE PRIMARY CLINICAL RECORDS. [employer] provides no warranty or guarantee of the accuracy or completeness of information in this document.
== END | disposition home or self-care (01) ==
PROVIDERS: PCP Physician Assistant; Referring Provider Podiatrist Foot & Ankle Surgery; Visit Provider Podiatrist Foot & Ankle Surgery
DX: M79.604 Pain in right leg (principal); M79.605 Pain in left leg; I73.89 Other specified peripheral vascular diseases
CPT/HCPCS: 93923; 93970